=== PATIENT | male | born 1970 | race Caucasian/White ===

== ENCOUNTER 2024-01-25 17:22 | Inpatient (IN) | payer MEDICARE ==
[~2024-01-25 17:22] MED LIST: VANCOMYCIN 1,500 MG in SODIUM CHLORIDE 0.9% 500 ML 500 ML IVPB STA
[2024-01-25] MEDS ORDERED: NALOXONE 0.4 MG/ML 1 ML VIAL IV PRN (18:02)
--- NOTE | 2024-01-25 18:02 | ED ---
General Adult HPI - General Chief complaint: Abdominal Pain Stated complaint: Abd pain Time Seen by Provider: 01/25/24 17:24 Source: patient, family, RN/MD, EMS, RN notes reviewed, old records reviewed Mode of arrival: EMS Limitations: no limitations - History of Present Illness Initial comments: Is a 53-year-old male presenting to the emergency department as a transfer from [facility]. Patient has chronic back pain. Patient has abdominal pain that started today. Patient has decreased appetite and has vomited a little bit. Patient felt constipated this morning and since then has had around 4 small stools. Patient has discomfort mostly lower abdomen. Patient was seen in [facility] diagnosed with concern for diverticulitis with rupture. Patient was given Flagyl, Levaquin, and vancomycin. Magnesium and potassium were replaced. Patient was transferred for surgical care. - Related Data Home Medications Medication Instructions Recorded Confirmed ALPRAZolam [Xanax] 1 mg PO TID PRN 01/25/24 01/25/24 Acetaminophen [Tylenol Arthritis] 650 mg PO Q8H PRN 01/25/24 01/25/24 Benazepril HCl 40 mg PO HS 01/25/24 01/25/24 Cholecalciferol (Vitamin D3) 75 mcg PO HS 01/25/24 01/25/24 [Vitamin D3 (3000 Iu)] Meclizine HCl [Dramamine] 25 mg PO TID PRN 01/25/24 01/25/24 Melatonin 5 mg PO HS 01/25/24 01/25/24 PARoxetine HCL [Paxil] 40 mg PO HS 01/25/24 01/25/24 Pregabalin [Lyrica] 150 mg PO BID MDD 300mg 01/25/24 01/25/24 metFORMIN HCL 1,000 mg PO BID 01/25/24 01/25/24 methocarbamoL [Robaxin-750] 750 mg PO TID PRN 01/25/24 01/25/24 oxyCODONE HCL [oxyCODONE HCL (IR)] 15 mg PO Q6H PRN MDD 60mg 01/25/24 01/25/24 Allergies Allergy/AdvReac Type Severity Reaction Status Date / Time Penicillins Allergy Anaphylaxis Verified 01/25/24 18:03 Review of Systems ROS Statement: Those systems with pertinent positive or pertinent negative responses have been documented in the HPI. ROS Other: All systems not noted in ROS Statement are negative. Constitutional: Denies: fever Eyes: Denies: eye pain ENT: Denies: ear pain Respiratory: Denies: cough Cardiovascular: Denies: chest pain Endocrine: Denies: fatigue Gastrointestinal: Reports: as per HPI, abdominal pain Musculoskeletal: Reports: as per HPI Neurological: Denies: weakness Past Medical History Past Medical History: Diabetes Mellitus, Hypertension History of Any Multi-Drug Resistant Organisms: None Reported Past Surgical History: Back Surgery Additional Past Surgical History / Comment(s): Brain surgery, Past Psychological History: Anxiety, Bipolar, Depression Smoking Status: Former smoker Past Alcohol Use History: None Reported Past Drug Use History: None Reported General Exam Limitations: no limitations General appearance: alert, in no apparent distress Head exam: Present: normocephalic Eye exam: Present: normal appearance ENT exam: Present: normal oropharynx Neck exam: Present: normal inspection Respiratory exam: Present: normal lung sounds bilaterally Cardiovascular Exam: Present: regular rate, normal rhythm GI/Abdominal exam: Present: soft, tenderness (Moderate tenderness epigastric. Moderate tenderness lower abdomen), normal bowel sounds. Absent: distended, guarding, rebound, rigid, pulsatile mass Extremities exam: Present: normal inspection Neurological exam: Present: alert Psychiatric exam: Present: normal affect, normal mood Skin exam: Present: normal color Course Vital Signs 01/25/24 17:24 Temperature 99.0 F Pulse Rate 91 Respiratory 18 Rate Blood Pressure 124/84 O2 Sat by Pulse 96 Oximetry EKG Findings - EKG Results: EKG: interpreted by ERMD (PVCs present. Septal Q waves.), sinus rhythm, normal axis, normal ST/T Medical Decision Making - Medical Decision Making Was pt. sent in by a medical professional or institution (, PA, CORPORATE AIRCRAFT MECHANIC, urgent care, hospital, or retirement...) When possible be specific @ -Patient was sent from [facility]. Did you speak to anyone other than the patient for history (EMS, parent, family, police, friend...)? What history was obtained from this source @ -I did speak with transferring physician Dr. Lackey Did you review nursing and triage notes (agree or disagree)? Why? @ -I reviewed and agree with nursing and triage notes Were old charts reviewed (outside hosp., previous admission, EMS record, old EKG, old radiological studies, urgent care reports/EKG's, retirement records)? Report findings @ -Chart reviewed from [facility] Differential Diagnosis (chest pain, altered mental status, abdominal pain women, abdominal pain men, vaginal bleeding, weakness, fever, dyspnea, syncope, headache, dizziness, GI bleed, back pain, seizure, CVA, palpatations, mental health, musculoskeletal)? @ -Differential Abdominal Pain Men: Appendicitis, cholecystitis, diverticulosis, ischemic bowel, pancreatitis, hepatitis, UTI, gastroenteritis, AAA, incarcerated hernia, bowel obstruction, constipation, inflammatory bowel, hepatitis, peptic ulcer disease, splenic infarction, perforated viscus, testicular torsion, this is not meant to be an all-inclusive list EKG interpreted by me (3pts min.). @ -As above X-rays interpreted by me (1pt min.). @ -None done CT interpreted by me (1pt min.). @ -None done U/S interpreted by me (1pt. min.). @ -None done What testing was considered but not performed or refused? (CT, X-rays, U/S, labs)? Why? @ -Considered blood cultures however patient did have IV antibiotics prior to transfer What meds were considered but not given or refused? Why? @ -None Did you discuss the management of the patient with other professionals (professionals i.e. , PA, CORPORATE AIRCRAFT MECHANIC, lab, RT, psych nurse, social service agency director, swimming professor, teacher, chief green officer, caser in)? Give summary @ -Case was discussed with transferring physician. Case also discussed with Dr. Thomson who did come evaluate patient in the emergency department. Case also discussed with practitioner Liyah who will admit covering hospital call. Was smoking cessation discussed for >3mins.? @ -No Was critical care preformed (if so, how long)? @ -No Were there social determinants of health that impacted care today? How? (Homelessness, low income, unemployed, alcoholism, drug addiction, transportation, low edu. Level, literacy, decrease access to med. care, [place] [facility], rehab)? @ -No Was there de-escalation of care discussed even if they declined (Discuss DNR or withdrawal of care, Hospice)? DNR status @ -No What co-morbidities impacted this encounter? (DM, HTN, Smoking, COPD, CAD, Cancer, CVA, ARF, Chemo, Hep., AIDS, mental health diagnosis, sleep apnea, morbid obesity)? @ -None Was patient admitted / discharged? Hospital course, mention meds given and route, prescriptions, significant lab abnormalities, going to OR and other pertinent info. @ -Patient reevaluated. Patient and family are updated on results and plan. Patient will be admitted. Orders written. Undiagnosed new problem with uncertain prognosis? @ -No Drug Therapy requiring intensive monitoring for toxicity (Heparin, Nitro, Insulin, Cardizem)? @ -No Were any procedures done? @ -No Diagnosis/symptom? @ -Diverticulitis with perforation and abscess Acute, or Chronic, or Acute on Chronic? @ -Acute Uncomplicated (without systemic symptoms) or Complicated (systemic symptoms)? @ -Complicated with perforation and abscess Side effects of treatment? @ -No Exacerbation, Progression, or Severe Exacerbation? @ -No Poses a threat to life or bodily function? How? (Chest pain, [place], MT, pneumonia, PE, COPD, DKA, ARF, appy, cholecystitis, CVA, Diverticulitis, Homicidal, Suicidal, threat to staff... and all critical care pts) @ -Threat to life and organ dysfunction with infection in the abdomen Disposition Clinical Impression: Diverticulitis Disposition: ADMITTED IP TO THIS HOSP Is patient prescribed a controlled substance at d/c from ED?: No Referrals: None,Stated [REFERRING] - 1-2 days Time of Disposition: 18:02
[2024-01-25] MEDS ORDERED: MECLIZINE 25 MG TAB PO PRN (18:12)
[2024-01-25] MEDS: PANTOPRAZOLE 40 MG/10 ML VIAL IV SCH (18:15)
[2024-01-25] MEDS: HYDROmorphone 0.5 MG/0.5 ML SYRINGE IVP PRN (18:16)
[2024-01-25] MEDS: SODIUM CHLORIDE 0.9% 1,000 ML IV SCH (18:25)
[2024-01-25] MEDS: ACETAMINOPHEN TAB 325 MG TAB PO PRN (20:40)
[2024-01-25] MEDS: ALPRAZolam 1 MG TAB PO PRN (20:41)
[2024-01-25] MEDS: HYDROmorphone 1 MG/ML 1 ML SYRINGE IVP PRN (20:44)
[2024-01-25 20:51] LABS: Glucose,Whole Blood 155 mg/dL (70-110)
[2024-01-25] MEDS: CHOLECALCIFEROL 25 MCG (1000 IU) TABLET PO SCH (22:32)
[2024-01-25] MEDS: PREGABALIN 75 MG CAP PO SCH (22:32)
[2024-01-25] MEDS: lisinopriL 20 MG TAB PO SCH (22:32)
[2024-01-25] MEDS: PARoxetine 20 MG TAB PO SCH (22:33)
[2024-01-25] MEDS: MELATONIN 5 MG TABLET PO SCH (22:33)
[2024-01-26] MEDS ORDERED: VANCOMYCIN IV PER PHARMACY 1 EACH MISC MISCELLANE PRN (00:01)
[2024-01-26] MEDS: metroNIDAZOLE-NS PMX 500 MG in SALINE 1 100ML.BAG IVPB SCH (00:18)
--- NOTE | 2024-01-26 04:23 | P.GSCN ---
History of Present Illness Consult date: 01/25/24 History of present illness: CHIEF COMPLAINT: Abdominal pain HISTORY OF PRESENT ILLNESS: The patient is a 53-year-old male transferred from outside facility due to abdominal pain in the last 2 to 3 days. Patient reports eating moderate popcorn, peanuts, cucumber, tomatoes. Family confirms his diet. Patient primarily, planing of back pain as well. Outside diagnostic imaging demonstrated perforated diverticulitis with abscess. As result of his findings, patient was transferred for admission. Denies prior events. Last colonoscopy within 5 to 10 years. Patient unaware of having previous diverticulosis. Does report family member with colon cancer. Patient reports nausea and vomiting including generalized abdominal pain. His history significant for brain injury with brain bleed. Family give additional information of his global health. PAST MEDICAL HISTORY: See list and reviewed PAST SURGICAL HISTORY: See list and reviewed MEDICATIONS: See list and reviewed ALLERGIES: See list and reviewed SOCIAL HISTORY: See list and reviewed FAMILY HISTORY: See list and reviewed REVIEW OF ORGAN SYSTEMS: CONSTITUTIONAL: No fevers or chills. No recent weight loss. EYES: Denies any trouble with vision. No glasses. HEENT: No difficulties with hearing. No nosebleeds. No difficulty swallowing. RESPIRATORY: Denies pneumonia. Denies any troubles with breathing or dyspnea on exertion. CARDIOVASCULAR: Has hypertensive heart disease. GASTROINTESTINAL: Denies fatty food intolerance. Has change in bowel habits and gas bloat. GENITOURINARY: Denies any blood in urine or increased urinary frequency. NEUROLOGICAL: Has prior brain injury. MUSCULOSKELETAL: Has back pain, stiffness or joint arthritis. SKIN: No current skin cancer. No rash. PSYCHIATRIC: Has depression. Has generalized anxiety disorder. Has bipolar disorder. ENDOCRINE: Denies current thyroid disorders. Has diabetes type 2. HEME/LYMPHATIC: Denies any lumps and bumps around the neck. No recent deep venous thrombosis. ALLERGY/IMMUNOLOGY: No immunoglobulin therapy. No immune deficiencies. BREAST: Denies current breast lumps, pain or nipple discharge. PHYSICAL EXAM: VITALS: Reviewed CONSTITUTIONAL: Well developed and in no acute distress. EYES: Conjuctivae without sclera icterus. Extraocular movements grossly intact. HEAD, EARS, NOSE, THROAT: Moist buccal mucosa. Head is atraumatic, normocephalic. Hears conversational speech. No nasal drainage. NECK: Supple. No JV distention. No thyroidomegaly. RESPIRATORY: Non-labored respirations and equal bilateral excursions. No gross wheezes. CARDIOVASCULAR: Palpable 2+ radial pulses. ABDOMEN: Tender generalized. No diffuse peritonitis. LYMPH: No neck lymphadenopathy. MUSCULOSKELETAL: No clubbing cyanosis or edema SKIN: Warm and well perfused with good skin turgor. NEUROLOGIC: Cranial nerves II through XII grossly intact. No focal or lateralizing signs. PSYCH: Appropriate affect. Alert and oriented to person, place and time. Displays appropriate insight. CLINCAL LABS: Reviewed. WBC at outside institution over 12,000. RADIOLOGY: Report reviewed from outside facility demonstrates localized free air with 5 cm pelvic abscess. ASSESSMENT: 1. Perforated diverticulitis with localized abscess 2. History of brain injury PLAN: 1. Surgical options of exploratory laparotomy with colostomy creation reviewed. Alternatives including IV antibiotics with prolonged n.p.o. status including nothing at all were reviewed. Patient elected for antibiotic management for 72 hours with antibiotics and n.p.o. status. 2. Antibiotic management per infectious disease consulted 3. IV fluid hydration for prolonged n.p.o. status anticipated 4. PICC line placement for antibiotic management advised 5. Consultation to infectious disease for antibiotic management placed 6. TPN for prolonged n.p.o. status pending PICC line placement 7. Inpatient hospitalization over 3 days reviewed 8. Any clinical decline also reviewed where urgent surgical invention may be needed. 9. Nonnarcotic pain management with scheduled Tylenol and Toradol including Flexeril reviewed. 10. May have ice chips and popsicles in the interim. ADVANCE DIRECTIVE: CODE STATUS in chart Thank you for this kind consultation. Past Medical History Past Medical History: Diabetes Mellitus, Hypertension History of Any Multi-Drug Resistant Organisms: None Reported Past Surgical History: Back Surgery Additional Past Surgical History / Comment(s): Brain surgery, Past Anesthesia/Blood Transfusion Reactions: No Reported Reaction Past Psychological History: Anxiety, Bipolar, Depression Smoking Status: Never smoker Past Alcohol Use History: None Reported Past Drug Use History: None Reported Medications and Allergies Home Medications Medication Instructions Recorded Confirmed Type ALPRAZolam [Xanax] 1 mg PO TID PRN 01/25/24 01/25/24 History Acetaminophen [Tylenol Arthritis] 650 mg PO Q8H PRN 01/25/24 01/25/24 History Benazepril HCl 40 mg PO HS 01/25/24 01/25/24 History Cholecalciferol (Vitamin D3) 75 mcg PO HS 01/25/24 01/25/24 History [Vitamin D3 (3000 Iu)] Meclizine HCl [Dramamine] 25 mg PO TID PRN 01/25/24 01/25/24 History Melatonin 5 mg PO HS 01/25/24 01/25/24 History PARoxetine HCL [Paxil] 40 mg PO HS 01/25/24 01/25/24 History Pregabalin [Lyrica] 150 mg PO BID MDD 300mg 01/25/24 01/25/24 History metFORMIN HCL 1,000 mg PO BID 01/25/24 01/25/24 History methocarbamoL [Robaxin-750] 750 mg PO TID PRN 01/25/24 01/25/24 History oxyCODONE HCL [oxyCODONE HCL (IR)] 15 mg PO Q6H PRN MDD 60mg 01/25/24 01/25/24 History Allergies Allergy/AdvReac Type Severity Reaction Status Date / Time Penicillins Allergy Anaphylaxis Verified 01/25/24 18:03 Surgical - Exam Vital Signs Temp Pulse Resp BP Pulse Ox 99.0 F 91 18 124/84 96 01/25/24 17:24 01/25/24 17:24 01/25/24 17:24 01/25/24 17:24 01/25/24 17:24 Results - Labs Abnormal Lab Results - Last 24 Hours (Table) 01/25/24 Range/Units 20:47 POC Glucose (mg/dL) 155 H (70-110) mg/dL
[2024-01-26] MEDS: LEVOFLOXACIN 750MG-D5W PMX 750 MG in DEXTROSE/WATER 1 150ML.BAG IVPB SCH (05:03)
[2024-01-26] MEDS: ONDANSETRON 4 MG/2 ML VIAL IVP PRN (05:20)
[2024-01-26] MEDS: KETOROLAC 15 MG/ML 1 ML VIAL IVP SCH (05:23)
[2024-01-26] MEDS: ACETAMINOPHEN IV (For NPO) 1,000 MG in EMPTY BAG 1 BAG IVPB SCH (06:15)
[2024-01-26] MEDS: VANCOMYCIN 1,500 MG in SODIUM CHLORIDE 0.9% 500 ML 500 ML IVPB SCH (06:58)
[2024-01-26] MEDS ORDERED: hydrALAZINE HCL 20 MG/ML 1 ML VIAL IVP PRN (09:18)
[2024-01-26 09:25] LABS: Magnesium 1.6 mg/dL (1.5-2.4)
[2024-01-26 09:41] LABS: ALT 6 U/L (10-49); AST 16 U/L (14-35); Albumin 3.4 g/dL (3.8-4.9); Albumin/Globulin Ratio 1.42 Ratio (1.60-3.17); Alkaline Phosphatase 78 U/L (41-126); BUN/Creat Ratio 14.47 Ratio (12.00-20.00); Blood Urea Nitrogen 21.7 mg/dL (9.0-27.0); Calcium 10.2 mg/dL (8.7-10.3); Carbon Dioxide 20.6 mmol/L (21.6-31.8); Chloride 100 mmol/L (96-109); Globulin 2.4 g/dL (1.6-3.3); Glucose 90 mg/dL (70-110); Sodium 135 mmol/L (135-145); Total Bilirubin 0.6 mg/dL (0.3-1.2); Total Protein 5.8 g/dL (6.2-8.2)
[2024-01-26 09:56] LABS: Glucose,Whole Blood 78 mg/dL (70-110)
[2024-01-26 10:24] LABS: Basophils # (A) 0.02 X 10*3/uL (0.00-0.10); Basophils % (A) 0.2 %; Eosinophils # (A) 0 X 10*3/uL (0.04-0.35); Eosinophils % (A) 0 %; HCT 44.2 % (39.6-50.0); Lymphocytes # (A) 0.86 X 10*3/uL (0.90-5.00); Lymphocytes % (A) 10.2 %; MCH 30.8 pg (27.0-32.0); MCHC 33.9 g/dL (32.0-37.0); MCV 90.8 FL (80.0-97.0); Mean Platelet Volume 11.7 FL (9.5-12.2); Monocytes % (A) 5.9 %; NRBC Per 100 WBC 0 X 10*3/uL (0.00-0.01); Neutrophils # (A) 7.01 X 10*3/uL (1.80-7.70); Neutrophils % (A) 83.2 %; Platelet Count 255 X 10*3/uL (140-440); RBC 4.87 X 10*6/uL (4.40-5.60); RBC Morphology Normal (Normal); RDW 13.5 % (11.5-14.5); WBC 8.43 X 10*3/uL (4.50-10.00)
--- NOTE | 2024-01-26 11:07 | P.PN ---
Subjective Progress Note Date: 01/26/24 PETE. Patient states that his abdominal pain is improved slightly. No F/C. No SOB or CP. No headache or blurry vision. No flatus or BM since admission. Voiding without issue. Objective - Vital Signs Vital signs: Vital Signs Temp 97.9 F 01/26/24 07:20 Pulse 81 01/26/24 07:20 Resp 16 01/26/24 07:20 BP 92/61 01/26/24 07:20 Pulse Ox 93 L 01/26/24 07:20 FiO2 Intake & Output 01/25/24 01/26/24 01/26/24 18:59 06:59 18:59 Intake Total 0 Output Total 400 Balance -400 Weight 90.718 kg 90.718 kg Intake: Oral 0 Output: Urine 400 Other: Voiding Method Toilet Urinal - Exam Gen: AxO, NAD Pulm: non-labored respiration Abd: soft, moderately-tender in LLQ, moderately-distended. No guarding/rebound/rigidity Extrem: no edema seen - Labs CBC & Chem 7: 01/26/24 04:34 01/26/24 04:34 Labs: Abnormal Lab Results - Last 24 Hours (Table) 01/25/24 01/26/24 01/26/24 Range/Units 20:47 04:34 04:34 Lymphocytes # 0.86 L (0.90-5.00) X 10*3/uL Eosinophils # 0 L (0.04-0.35) X 10*3/uL Carbon Dioxide 20.6 L (21.6-31.8) mmol/L Anion Gap 14.40 H (4.00-12.00) mmol/L Est GFR (CKD-EPI) 55 L (>=60) POC Glucose (mg/dL) 155 H (70-110) mg/dL ALT 6 L (10-49) U/L Total Protein 5.8 L (6.2-8.2) g/dL Albumin 3.4 L (3.8-4.9) g/dL Albumin/Globulin Ratio 1.42 L (1.60-3.17) Ratio Assessment and Plan Assessment: Patient is a 53M who presents with cross sectional imaging findings concerning for perforated sigmoid diverticulitis currently managed conservatively Plan: -NPO -TPN -IVF hydration -IV abx: ID consult -PRN pain and nausea control -Serial abdominal examination -No acute surgical intervention; will continue to attempt conservative management; if worsening abdominal pain or development of peritonitis, hemodynamic instability will plan for emergent intervention. Discussed in detail with patient at bedside. Alonzo Morgan MD General Surgery
[2024-01-26 12:03] LABS: Glucose,Whole Blood 71 mg/dL (70-110)
[2024-01-26] MEDS: INSULIN ASPART (NovoLOG) 100 UNIT/ML VIAL SQ SCH (12:09)
[2024-01-26 13:33] LABS: INR 1.23 sec (0.93-1.11); Prothrombin Time 13.1 sec (9.9-11.9)
--- NOTE | 2024-01-26 13:54 | P.HPIM ---
History of Present Illness H&P Date: 01/26/24 Chief Complaint: Abdominal pain * 53-year-old gentleman past medical history significant for chronic back pain, history of hypertension, history of diabetes mellitus presented to the emergency department with complaints of acute onset of abdominal pain on top of chronic back pain. Patient states symptom onset was 24 hours prior to presentation. Patient said he has a progressive decrease in appetite and had vomited a few times before coming in. Patient said he had 4 small stools however abdominal pain persisted. Patient was sent as a transfer from an outside hospital due to concern for diverticulitis with perforation. * General surgery team was contacted, patient was made n.p.o. * consultation obtained from general surgery and infectious disease REVIEW OF SYSTEMS: Abdominal pain CONSTITUTIONAL: No fever, no malaise, no fatigue. HEENT: No recent visual problems or hearing problems. Denied any sore throat. CARDIOVASCULAR: No chest pain, orthopnea, PND, no palpitations, no syncope. PULMONARY: No shortness of breath, no cough, no hemoptysis. GASTROINTESTINAL: No diarrhea, no nausea, no vomiting, no abdominal pain. NEUROLOGICAL: No headaches, no weakness, no numbness. HEMATOLOGICAL: Denies any bleeding or petechiae. GENITOURINARY: Denies any burning micturition, frequency, or urgency. MUSCULOSKELETAL/RHEUMATOLOGICAL: Denies any joint pain, swelling, or any muscle pain. ENDOCRINE: Denies any polyuria or polydipsia. PHYSICAL EXAMINATION: GENERAL: The patient is alert and oriented x3, not in any acute distress. Well d eveloped, well nourished. HEENT: Pupils are round and equally reacting to light. EOMI. Normocephalic, atraumatic. CARDIOVASCULAR: S1 and S2 present. No murmurs, rubs, or gallops. PULMONARY: Chest is clear to auscultation, no wheezing or crackles. ABDOMEN: Soft, distended, no guarding or rigidity MUSCULOSKELETAL: No joint swelling or deformity. EXTREMITIES: No cyanosis, clubbing, or pedal edema. NEUROLOGICAL: Gross neurological examination did not reveal any focal deficits. Assessment and plan * Acute diverticulitis with perforation and localized abscess * Diabetes mellitus type 2 * History of hypertension * chronic pain syndrome * Continue patient on IV antibiotics on Levaquin and Flagyl, general surgeon infectious is consulted patient remains n.p.o., patient was offered surgical intervention however at this time patient would want to be managed conservatively * In regards to diabetes mellitus since patient is n.p.o. Accu-Cheks every 4 hours continue patient on correctional insulin monitor for hypoglycemia * History of hypertension as needed IV hydralazine ordered * Regards to chronic pain syndrome as needed IV Dilaudid ordered, continue Robaxin, continue Lyrica * Code status full code Past Medical History Past Medical History: Diabetes Mellitus, Hypertension History of Any Multi-Drug Resistant Organisms: None Reported Past Surgical History: Back Surgery Additional Past Surgical History / Comment(s): Brain surgery, Past Anesthesia/Blood Transfusion Reactions: No Reported Reaction Past Psychological History: Anxiety, Bipolar, Depression Smoking Status: Never smoker Past Alcohol Use History: None Reported Past Drug Use History: None Reported Medications and Allergies Home Medications Medication Instructions Recorded Confirmed Type ALPRAZolam [Xanax] 1 mg PO TID PRN 01/25/24 01/25/24 History Acetaminophen [Tylenol Arthritis] 650 mg PO Q8H PRN 01/25/24 01/25/24 History Benazepril HCl 40 mg PO HS 01/25/24 01/25/24 History Cholecalciferol (Vitamin D3) 75 mcg PO HS 01/25/24 01/25/24 History [Vitamin D3 (3000 Iu)] Meclizine HCl [Dramamine] 25 mg PO TID PRN 01/25/24 01/25/24 History Melatonin 5 mg PO HS 01/25/24 01/25/24 History PARoxetine HCL [Paxil] 40 mg PO HS 01/25/24 01/25/24 History Pregabalin [Lyrica] 150 mg PO BID MDD 300mg 01/25/24 01/25/24 History metFORMIN HCL 1,000 mg PO BID 01/25/24 01/25/24 History methocarbamoL [Robaxin-750] 750 mg PO TID PRN 01/25/24 01/25/24 History oxyCODONE HCL [oxyCODONE HCL (IR)] 15 mg PO Q6H PRN MDD 60mg 01/25/24 01/25/24 History Allergies Allergy/AdvReac Type Severity Reaction Status Date / Time Penicillins Allergy Anaphylaxis Verified 01/25/24 18:03 Physical Exam Vitals: Vital Signs Temp Pulse Pulse Resp BP BP BP 01/26/24 07:20 97.9 F 81 16 94/62 92/61 01/26/24 03:46 98.8 F 73 18 104/72 01/26/24 00:29 99.4 F 107 H 20 105/76 01/25/24 20:32 100.4 F H 104 H 20 139/92 01/25/24 20:00 20 01/25/24 19:54 95 20 113/81 01/25/24 18:50 97 18 120/65 01/25/24 17:24 99.0 F 91 18 124/84 Pulse Ox 01/26/24 07:20 93 L 01/26/24 03:46 94 L 01/26/24 00:29 94 L 01/25/24 20:32 94 L 01/25/24 20:00 01/25/24 19:54 96 01/25/24 18:50 93 L 01/25/24 17:24 96 Intake and Output 01/25/24 01/26/24 01/26/24 22:59 06:59 14:59 Intake Total 0 Output Total 400 Balance -400 Intake: Oral 0 Output: Urine 400 Other: Voiding Method Toilet Urinal Weight 90.718 kg Results CBC & Chem 7: 01/26/24 04:34 01/26/24 04:34 Labs: Abnormal Lab Results - Last 24 Hours (Table) 01/25/24 Range/Units 20:47 POC Glucose (mg/dL) 155 H (70-110) mg/dL Thrombosis Risk Factor Assmnt - Choose All That Apply Any of the Below Risk Factors Present?: Yes Each Factor Represents 1 point: Age 41-60 years, Medical pt on bed rest, Obesity (BMI >25) Other Risk Factors: Yes Each Risk Factor Represents 2 Points: Laparoscopic surgery Thrombosis Risk Factor Assessment Total Risk Factor Score: 5 Thrombosis Risk Factor Assessment Level: High Risk
[2024-01-26] MEDS: methocarbamoL 750 MG TAB PO PRN (14:08)
[2024-01-26 16:01] LABS: Glucose,Whole Blood 69 mg/dL (70-110)
[2024-01-26 21:44] LABS: Glucose,Whole Blood 76 mg/dL (70-110)
--- NOTE | 2024-01-26 22:43 | P.CONS ---
History of Present Illness - Reason for Consult Consult date: 01/26/24 - History of Present Illness Patient is a 53-year-old male with past medical history significant for diabetes mellitus hypertension anxiety bipolar depression and brain surgery patient initially presented to [facility] for abdominal pain that started getting worse the day of presentation to the hospital patient was describing the pain to be sharp moderate to severe intensity without any radiation patient did have decreased appetite and vomiting and has constipation patient did have a CT abdominal pelvis at [facility] and the patient has been diagnosed with a ruptured diverticulitis, he received Flagyl Levaquin and vancomycin because of his penicillin allergy and subsequently transferred to [facility] for further evaluation, patient on presentation to the hospital did have low-grade fever 100.4 F patient was tachycardic but not hypotensive or hypoxic did have a white count of 8.43 creatinine is 1.5 liver enzymes are normal, patient still complaining of abdominal pain manage is slightly decreased in intensity nausea but no further vomiting and did not have a bowel movement Past Medical History Past Medical History: Diabetes Mellitus, Hypertension History of Any Multi-Drug Resistant Organisms: None Reported Past Surgical History: Back Surgery Additional Past Surgical History / Comment(s): Brain surgery, Past Anesthesia/Blood Transfusion Reactions: No Reported Reaction Past Psychological History: Anxiety, Bipolar, Depression Smoking Status: Never smoker Past Alcohol Use History: None Reported Past Drug Use History: None Reported Medications and Allergies Home Medications Medication Instructions Recorded Confirmed Type ALPRAZolam [Xanax] 1 mg PO TID PRN 01/25/24 01/25/24 History Acetaminophen [Tylenol Arthritis] 650 mg PO Q8H PRN 01/25/24 01/25/24 History Benazepril HCl 40 mg PO HS 01/25/24 01/25/24 History Cholecalciferol (Vitamin D3) 75 mcg PO HS 01/25/24 01/25/24 History [Vitamin D3 (3000 Iu)] Meclizine HCl [Dramamine] 25 mg PO TID PRN 01/25/24 01/25/24 History Melatonin 5 mg PO HS 01/25/24 01/25/24 History PARoxetine HCL [Paxil] 40 mg PO HS 01/25/24 01/25/24 History Pregabalin [Lyrica] 150 mg PO BID MDD 300mg 01/25/24 01/25/24 History metFORMIN HCL 1,000 mg PO BID 01/25/24 01/25/24 History methocarbamoL [Robaxin-750] 750 mg PO TID PRN 01/25/24 01/25/24 History oxyCODONE HCL [oxyCODONE HCL (IR)] 15 mg PO Q6H PRN MDD 60mg 01/25/24 01/25/24 History Allergies Allergy/AdvReac Type Severity Reaction Status Date / Time Penicillins Allergy Anaphylaxis Verified 01/25/24 18:03 Physical Exam Vitals: Vital Signs Temp Pulse Pulse Resp BP BP BP 01/26/24 07:20 97.9 F 81 16 94/62 92/61 01/26/24 03:46 98.8 F 73 18 104/72 01/26/24 00:29 99.4 F 107 H 20 105/76 01/25/24 20:32 100.4 F H 104 H 20 139/92 01/25/24 20:00 20 01/25/24 19:54 95 20 113/81 01/25/24 18:50 97 18 120/65 01/25/24 17:24 99.0 F 91 18 124/84 Pulse Ox 01/26/24 07:20 93 L 01/26/24 03:46 94 L 01/26/24 00:29 94 L 01/25/24 20:32 94 L 01/25/24 20:00 01/25/24 19:54 96 01/25/24 18:50 93 L 01/25/24 17:24 96 Intake and Output 01/25/24 01/26/24 01/26/24 22:59 06:59 14:59 Intake Total 0 Output Total 400 Balance -400 Intake: Oral 0 Output: Urine 400 Other: Voiding Method Toilet Urinal Weight 90.718 kg Results CBC & Chem 7: 01/28/24 06:32 01/28/24 06:32 Labs: Abnormal Lab Results - Last 24 Hours (Table) 01/25/24 01/26/24 Range/Units 20:47 04:34 Carbon Dioxide 20.6 L (21.6-31.8) mmol/L Anion Gap 14.40 H (4.00-12.00) mmol/L Est GFR (CKD-EPI) 55 L (>=60) POC Glucose (mg/dL) 155 H (70-110) mg/dL ALT 6 L (10-49) U/L Total Protein 5.8 L (6.2-8.2) g/dL Albumin 3.4 L (3.8-4.9) g/dL Albumin/Globulin Ratio 1.42 L (1.60-3.17) Ratio Assessment and Plan Plan: 1patient presented hospital with sepsis in this patient did have fever tachycardia source is acute ruptured appendicitis and peritonitis and will need to cover for enteric gram-negative to be the likely pathogen less likely gram- positive kike 2-penicillin allergy that will limit the number of antibiotics safe to use 3-discontinue vancomycin and Levaquin continue with the Flagyl 4-we will add cefepime 2 g every 8 hours to cover for the gram-negative Bowel rest and plan for repeat CT per surgery We will follow on clinical condition and cultures to further adjust medication if needed Thank you for this consultation we will follow the patient along with you Dictation was produced using [email or web address] dictation software. please excuse any grammatical, word or spelling errors. Time with Patient: Greater than 30
[2024-01-26 23:47] LABS: Glucose,Whole Blood 77 mg/dL (70-110)
[2024-01-27] MEDS: CEFEPIME 2 GM in SODIUM CHLORIDE 0.9% 100 ML IVPB SCH ×2 (00:33→15:17)
[2024-01-27 03:52] LABS: Glucose,Whole Blood 69 mg/dL (70-110)
[2024-01-27 04:17] LABS: Glucose,Whole Blood 66 mg/dL (70-110)
[2024-01-27 04:23] LABS: Glucose,Whole Blood 61 mg/dL (70-110)
[2024-01-27] MEDS: DEXTROSE 50% SYRINGE 50 ML IVP PRN ×2 (04:31→07:47)
[2024-01-27 04:56] LABS: Glucose,Whole Blood 110 mg/dL (70-110)
[2024-01-27 07:24] LABS: Glucose,Whole Blood 62 mg/dL (70-110)
[2024-01-27 07:26] LABS: African American GFR (CKD) 33 (>60 ml/min/1.73 sqM); Anion Gap 9 mmol/L; Blood Urea Nitrogen 44 mg/dL (9-20); Calcium 8.6 mg/dL (8.4-10.2); Carbon Dioxide 19 mmol/L (22-30); Chloride 104 mmol/L (98-107); Non-African American GFR(CKD) 29 (>60 ml/min/1.73 sqM); Potassium 4.8 mmol/L (3.5-5.1); Sodium 132 mmol/L (137-145)
[2024-01-27 07:29] LABS: Glucose 49 mg/dL (74-99)
[2024-01-27 07:41] LABS: Magnesium 1.5 mg/dL (1.6-2.3)
[2024-01-27 08:01] LABS: Glucose,Whole Blood 133 mg/dL (70-110)
[2024-01-27 10:35] LABS: HCT 35.9 % (39.0-53.0); HGB 11.6 gm/dL (13.0-17.5); MCH 31.4 pg (25.0-35.0); MCHC 32.2 g/dL (31.0-37.0); MCV 97.6 fL (80.0-100.0); Mean Platelet Volume 10.8; Platelet Count 136 k/uL (150-450); RBC 3.68 m/uL (4.30-5.90); RDW 13.7 % (11.5-15.5); WBC 3.3 k/uL (3.8-10.6)
[2024-01-27 11:27] LABS: Band Neutrophils % 14 %; Myelocytes % 3 %; Neutrophils % (M) 62 %; Nucleated Red Blood Cells 0 /100 WBC (0-0); Total Cells Counted 100
--- NOTE | 2024-01-27 11:39 | P.PN ---
Subjective Progress Note Date: 01/27/24 Patient had reported that he felt better but still has lower abdominal discomfort. "My back hurts and I am supposed to have surgery February 03." No fevers in 24 hrs. " I want to avoid the narcotics." His family is at bedside. ABDOMEN: No diffuse peritonitis. Tender left lower quadrant. PLAN: 1. Repeat CT scan 2. Continue NPO 3. Scheduled non-narcotic management. 4. PICC line needed. 5. Antibiotic management with infectious disease. Objective - Vital Signs Vital signs: Vital Signs Temp 97.7 F 01/27/24 07:20 Pulse 57 L 01/27/24 08:00 Resp 16 01/27/24 08:00 BP 84/52 01/27/24 07:20 Pulse Ox 96 01/27/24 07:20 FiO2 Intake & Output 01/26/24 01/27/24 01/27/24 18:59 06:59 18:59 Intake Total 2830 Output Total 1440 Balance 2830 -1440 Weight 90.718 kg Intake: Intake, IV Titration 2830 Amount ACETAMINOPHEN IV (For NPO 800 ) 1,000 mg In Empty Bag 1 bag @ 400 mls/hr IVPB Q6HR [facility] Rx#:[id number] Sodium Chloride 0.9% 1, 1430 000 ml @ 130 mls/hr IV . Q7H42M [facility] Rx#:[id number] Vancomycin 1,500 mg In 500 Sodium Chloride 0.9% 500 ml 500 ml @ 167 mls/hr IVPB Q12H [facility] Rx#: [id number] metroNIDAZOLE-NS PMX 500 100 mg In Saline 1 100ml.bag @ 100 mls/hr IVPB Q6HR [facility] Rx#:[id number] Output: Urine 1440 Other: Voiding Method Toilet Toilet Urinal Urinal - Labs CBC & Chem 7: 01/27/24 10:30 01/27/24 06:23 Labs: Abnormal Lab Results - Last 24 Hours (Table) 01/26/24 01/26/24 01/27/24 Range/Units 04:34 16:01 03:50 WBC (3.8-10.6) k/uL RBC (4.30-5.90) m/uL Hgb (13.0-17.5) gm/dL Hct (39.0-53.0) % Plt Count (150-450) k/uL Lymphocytes # (Manual) (1.0-4.8) k/uL Myelocytes # (Manual) (0) k/uL PT 13.1 H (9.9-11.9) sec INR 1.23 H (0.93-1.11) sec Sodium (137-145) mmol/L Carbon Dioxide (22-30) mmol/L BUN (9-20) mg/dL Creatinine (0.66-1.25) mg/dL Glucose (74-99) mg/dL POC Glucose (mg/dL) 69 L 69 L (70-110) mg/dL Hemoglobin A1c (<=6.0) % Plasma Lactic Acid Collin (0.7-2.0) mmol/L Magnesium (1.6-2.3) mg/dL 01/27/24 01/27/24 01/27/24 Range/Units 04:16 04:22 06:23 WBC (3.8-10.6) k/uL RBC (4.30-5.90) m/uL Hgb (13.0-17.5) gm/dL Hct (39.0-53.0) % Plt Count (150-450) k/uL Lymphocytes # (Manual) (1.0-4.8) k/uL Myelocytes # (Manual) (0) k/uL PT (9.9-11.9) sec INR (0.93-1.11) sec Sodium (137-145) mmol/L Carbon Dioxide (22-30) mmol/L BUN (9-20) mg/dL Creatinine (0.66-1.25) mg/dL Glucose (74-99) mg/dL POC Glucose (mg/dL) 66 L 61 L (70-110) mg/dL Hemoglobin A1c 6.1 H (<=6.0) % Plasma Lactic Acid Collin (0.7-2.0) mmol/L Magnesium (1.6-2.3) mg/dL 01/27/24 01/27/24 01/27/24 Range/Units 06:23 07:22 07:59 WBC (3.8-10.6) k/uL RBC (4.30-5.90) m/uL Hgb (13.0-17.5) gm/dL Hct (39.0-53.0) % Plt Count (150-450) k/uL Lymphocytes # (Manual) (1.0-4.8) k/uL Myelocytes # (Manual) (0) k/uL PT (9.9-11.9) sec INR (0.93-1.11) sec Sodium 132 L (137-145) mmol/L Carbon Dioxide 19 L (22-30) mmol/L BUN 44 H (9-20) mg/dL Creatinine 2.46 H (0.66-1.25) mg/dL Glucose 49 L* (74-99) mg/dL POC Glucose (mg/dL) 62 L 133 H (70-110) mg/dL Hemoglobin A1c (<=6.0) % Plasma Lactic Acid Collin (0.7-2.0) mmol/L Magnesium 1.5 L (1.6-2.3) mg/dL 01/27/24 01/27/24 Range/Units 10:30 10:43 WBC 3.3 L (3.8-10.6) k/uL RBC 3.68 L (4.30-5.90) m/uL Hgb 11.6 L (13.0-17.5) gm/dL Hct 35.9 L (39.0-53.0) % Plt Count 136 L (150-450) k/uL Lymphocytes # (Manual) 0.50 L (1.0-4.8) k/uL Myelocytes # (Manual) 0.10 H (0) k/uL PT (9.9-11.9) sec INR (0.93-1.11) sec Sodium (137-145) mmol/L Carbon Dioxide (22-30) mmol/L BUN (9-20) mg/dL Creatinine (0.66-1.25) mg/dL Glucose (74-99) mg/dL POC Glucose (mg/dL) (70-110) mg/dL Hemoglobin A1c (<=6.0) % Plasma Lactic Acid Collin 2.9 H* (0.7-2.0) mmol/L Magnesium (1.6-2.3) mg/dL
--- NOTE | 2024-01-27 11:40 | P.PN ---
Progress Note - Text Progress Note Date: 01/27/24 Notified by RN that patient lied regarding his abdominal pain to avoid surgery per discussion with his family. Will obtain repeat CT scan today. Possible colectomy with ostomy creation previously described.
[2024-01-27 11:56] LABS: Glucose,Whole Blood 55 mg/dL (70-110)
[2024-01-27] MEDS: SODIUM CHLORIDE 0.9% 2,000 ML IV ONE ×3 (12:25→16:15)
[2024-01-27 12:33] LABS: Glucose,Whole Blood 58 mg/dL (70-110)
[2024-01-27] MEDS: IOPAMIDOL CONTRAST (ORAL USE) VIAL PO PRN (12:33)
[2024-01-27] MEDS: MAGNESIUM SULFATE-D5W PMX 1 GM in DEXTROSE/WATER 1 100ML.BAG IVPB SCH (12:41)
[2024-01-27 12:50] LABS: Glucose,Whole Blood 95 mg/dL (70-110)
[2024-01-27 12:58] LABS: INR 1.1 (<1.2); Partial Thromboplastin Time 32.9 sec (22.0-30.0); Prothrombin Time 11.8 sec (10.0-12.5)
--- NOTE | 2024-01-27 13:13 | P.PN ---
Subjective Progress Note Date: 01/27/24 * 53-year-old gentleman past medical history significant for chronic back pain, history of hypertension, history of diabetes mellitus presented to the emergency department with complaints of acute onset of abdominal pain on top of chronic back pain. Patient states symptom onset was 24 hours prior to presentation. Patient said he has a progressive decrease in appetite and had vomited a few times before coming in. Patient said he had 4 small stools however abdominal pain persisted. Patient was sent as a transfer from an outside hospital due to concern for diverticulitis with perforation. * General surgery team was contacted, patient was made n.p.o. * consultation obtained from general surgery and infectious disease * 01/27/24: Patient seen and evaluated at bedside, serum chemistry reviewed, creatinine elevated at 2.46, to be hypotensive, patient dose of lisinopril discontinued, follow-up lactate levels ordered, since lactate levels was elevated, patient given fluid bolus, patient to be transferred to [facility] will follow-up on vitals and blood pressure patient decompensates he will need to go to medical ICU, nursing staff instructed to call a team if patient becomes symptomatic. Patient did complain of abdominal discomfort, surgery team following and aware they had requested a CT abdomen pelvis that will be completed as well>> patient reluctant to get surgery done, patient states she does not trust doctors. Patient daughter at bedside as well care plan explained. Patient and other family members accompanied him in the room as well patient was explained if he decompensates he would need surgery, apparently per chart review patient has only not been forefront with the nursing staff regarding abdominal pain PHYSICAL EXAMINATION: GENERAL: The patient is alert and oriented x3, ill appearance HEENT: Pupils are round and equally reacting to light. EOMI. Normocephalic, atraumatic. CARDIOVASCULAR: S1 and S2 present. No murmurs, rubs, or gallops. PULMONARY: Chest is clear to auscultation, no wheezing or crackles. ABDOMEN: Soft, distended, no guarding or rigidity MUSCULOSKELETAL: No joint swelling or deformity. EXTREMITIES: No cyanosis, clubbing, or pedal edema. NEUROLOGICAL: Gross neurological examination did not reveal any focal deficits. Assessment and plan * Acute diverticulitis with perforation and localized abscess * Sepsis secondary to intra-abdominal infection * Diabetes mellitus type 2 * History of hypertension * chronic pain syndrome * Continue patient on IV antibiotics on cefepime and Flagyl, general surgeon infectious is consulted patient remains n.p.o., patient was offered surgical intervention however at this time patient would want to be managed conservatively * In regards to diabetes mellitus since patient is n.p.o. Accu-Cheks every 4 hours continue patient on correctional insulin monitor for hypoglycemia * History of hypertension >> patient noted to be hypotensive, lisinopril discontinued, given fluid, follow-up lactate ordered, initial lactate 2 point 9 repeat lactate after fluid bolus * Regards to chronic pain syndrome as needed IV Dilaudid ordered, continue Robaxin, continue Lyrica * Code status full code Objective - Vital Signs Vital signs: Vital Signs Temp 97.7 F 01/27/24 07:20 Pulse 57 L 01/27/24 08:00 Resp 16 01/27/24 08:00 BP 84/52 01/27/24 07:20 Pulse Ox 96 01/27/24 07:20 FiO2 Intake & Output 01/26/24 01/27/24 01/27/24 18:59 06:59 18:59 Intake Total 2830 Output Total 1440 Balance 2830 -1440 Weight 90.718 kg Intake: Intake, IV Titration 2830 Amount ACETAMINOPHEN IV (For NPO 800 ) 1,000 mg In Empty Bag 1 bag @ 400 mls/hr IVPB Q6HR [facility] Rx#:[id number] Sodium Chloride 0.9% 1, 1430 000 ml @ 130 mls/hr IV . Q7H42M [facility] Rx#:[id number] Vancomycin 1,500 mg In 500 Sodium Chloride 0.9% 500 ml 500 ml @ 167 mls/hr IVPB Q12H [facility] Rx#: [id number] metroNIDAZOLE-NS PMX 500 100 mg In Saline 1 100ml.bag @ 100 mls/hr IVPB Q6HR [facility] Rx#:[id number] Output: Urine 1440 Other: Voiding Method Toilet Toilet Urinal Urinal - Labs CBC & Chem 7: 01/27/24 10:30 01/27/24 06:23 Labs: Abnormal Lab Results - Last 24 Hours (Table) 01/26/24 01/26/24 01/27/24 Range/Units 04:34 16:01 03:50 PT 13.1 H (9.9-11.9) sec INR 1.23 H (0.93-1.11) sec Sodium (137-145) mmol/L Carbon Dioxide (22-30) mmol/L BUN (9-20) mg/dL Creatinine (0.66-1.25) mg/dL Glucose (74-99) mg/dL POC Glucose (mg/dL) 69 L 69 L (70-110) mg/dL Hemoglobin A1c (<=6.0) % Magnesium (1.6-2.3) mg/dL 01/27/24 01/27/24 01/27/24 Range/Units 04:16 04:22 06:23 PT (9.9-11.9) sec INR (0.93-1.11) sec Sodium (137-145) mmol/L Carbon Dioxide (22-30) mmol/L BUN (9-20) mg/dL Creatinine (0.66-1.25) mg/dL Glucose (74-99) mg/dL POC Glucose (mg/dL) 66 L 61 L (70-110) mg/dL Hemoglobin A1c 6.1 H (<=6.0) % Magnesium (1.6-2.3) mg/dL 01/27/24 01/27/24 01/27/24 Range/Units 06:23 07:22 07:59 PT (9.9-11.9) sec INR (0.93-1.11) sec Sodium 132 L (137-145) mmol/L Carbon Dioxide 19 L (22-30) mmol/L BUN 44 H (9-20) mg/dL Creatinine 2.46 H (0.66-1.25) mg/dL Glucose 49 L* (74-99) mg/dL POC Glucose (mg/dL) 62 L 133 H (70-110) mg/dL Hemoglobin A1c (<=6.0) % Magnesium 1.5 L (1.6-2.3) mg/dL
[2024-01-27] MEDS: ACETAMINOPHEN TAB 500 MG TAB PO SCH (15:07)
[2024-01-27 15:46] LABS: Glucose,Whole Blood 84 mg/dL (70-110)
--- NOTE | 2024-01-27 17:11 | P.PN ---
Progress Note - Text Progress Note Date: 01/27/[address] scan and earlier event. Patient becoming hypotensive. Urine out put is an accurate as patient's has been discarding his urine. Studies: CT of the abdomen pelvis independently reviewed demonstrates no free air. Intra-abdominal ascites identified. Inflammation of the sigmoid colon identified. Labs: Lactate elevated 2.9 consistent with lactic acidosis. Assessment: 1. Sepsis with leukopenia Plan: 1. Continue IV antibiotics. 2. I ordered sepsis protocol including 4 L normal saline boluses. 3. I ordered echo cardiogram of the heart for potential surgical intervention. 4. Continue n.p.o. status with exception of ice chips and popsicles 5. Michel catheter for accurate inputs and outputs due to new sepsis 6. TPN and PICC line placement pending 7. Patient reports moderate back pain with previous history of spinal fracture. Consultation to orthopedic spine provider performed.
--- NOTE | 2024-01-27 19:33 | CT ---
EXAMINATION TYPE: CT abdomen pelvis wo con CT DLP: 1160.9 mGycm, Automated exposure control for dose reduction was used. DATE OF EXAM: 01/27/2024 2:32 PM COMPARISON: None. CLINICAL INDICATION:Male, 53 years old with history of lower abdominal pain, known diverticulitis; lo wer abdominal pain, known diverticulitis TECHNIQUE: Axial CT of the abdomen and pelvis. Sagittal and coronal reformats were created on a [employer] workstation. Contrast used: mL of , (none if empty) Oral contrast used: with Oral Contrast (none if empty) FINDINGS: Exam is limited without contrast. LOWER CHEST: Small right pleural effusion. Calcified pleural plaque on the right, can be seen with pr ior asbestos exposure. There are bibasilar lung opacities that could represent atelectasis and/or inf iltrates. Heart is mildly enlarged. There are very heavy coronary arterial calcifications seen, espec ially on the left. ABDOMEN LIVER: Possible early cirrhotic morphology, otherwise unremarkable. GALLBLADDER AND BILE DUCTS: Gallbladder appears distended without calcified gallstones seen. PANCREAS: Unremarkable. SPLEEN: Unremarkable. ADRENAL GLANDS: Mildly thickened, may be seen with hyperplasia.. KIDNEYS AND URETERS: Kidneys show small calcifications in the hilar regions which could be vascular. There is no evidence of hydronephrosis or ureteral stone. PELVIS BLADDER: Grossly unremarkable. REPRODUCTIVE: Nonenlarged prostate with a few coarse calcifications. ABDOMEN & PELVIS STOMACH AND BOWEL: Contrast traverses the stomach and small bowel loops without evidence of obstructi on. Contrast has not yet reached the distal small bowel. The appendix is not visualized. Moderate flu id distention of the cecum and right colon is suggested. There is more formed stool further distally. Multiple colonic diverticula are seen, with some surrounding inflammation suggesting most likely div erticulitis. PERITONEUM/RETROPERITONEUM: There is a small to moderate volume of ascites in the abdomen and pelvi s. There appears to be a small amount of layering hyperdensity along the posterior aspect of the pelv ic fluid, which may be from leakage of small amount contrast. There are multiple small foci of extral uminal gas consistent with pneumoperitoneum, which has increased slightly since 01/25/2024 in size and number. VASCULATURE: Moderate to severe atherosclerotic calcifications are present throughout the abdominal a bernice and its branches. No evidence of aortic aneurysm. LYMPH NODES: No enlarged nodes by CT size criteria. SOFT TISSUE/ABDOMINAL WALL: Unremarkable MUSCULOSKELETAL: Generalized osteopenia. Extensive multilevel posterior fusion hardware throughout th e visualized spine with multilevel accompanying laminectomies. Moderate to severe loss of L2 vertebra l body height is similar to before. Developmental fusion of T9-T10 vertebral bodies again noted. No a cute osseous abnormality is seen. IMPRESSION: 1. Colonic findings suggestive of diverticulitis, with multiple small foci of extraluminal free intr aperitoneal air likely result of perforated diverticulitis. 2. Small amount of fluid in the pelvis which likely contains small amount of leaked contrast. 3. Other stable chronic and likely incidental findings, as described above.
[2024-01-27 20:08] LABS: Glucose,Whole Blood 83 mg/dL (70-110)
[2024-01-27] MEDS: HEPARIN SODIUM,PORCINE 5,000 UNIT/ML 1 ML VIAL SQ SCH (20:19)
[2024-01-27] MEDS: MIDODRINE 5 MG TAB PO ONE (21:59)
[2024-01-27] MEDS: HYDROmorphone 0.5 MG/0.5 ML SYRINGE IVP PRN (22:00)
[2024-01-27 23:50] LABS: Glucose,Whole Blood 73 mg/dL (70-110)
[2024-01-28 01:54] LABS: Glucose,Whole Blood 84 mg/dL (70-110)
[2024-01-28 04:07] LABS: Glucose,Whole Blood 70 mg/dL (70-110)
[2024-01-28 05:55] LABS: Glucose,Whole Blood 81 mg/dL (70-110)
[2024-01-28 07:25] LABS: ALT 7 U/L (4-49); AST 17 U/L (17-59); African American GFR (CKD) 69 (>60 ml/min/1.73 sqM); Albumin 1.9 g/dL (3.5-5.0); Alkaline Phosphatase 90 U/L (38-126); Anion Gap 6 mmol/L; Blood Urea Nitrogen 37 mg/dL (9-20); Calcium 7.5 mg/dL (8.4-10.2); Carbon Dioxide 16 mmol/L (22-30); Chloride 112 mmol/L (98-107); Glucose 67 mg/dL (74-99); Magnesium 1.8 mg/dL (1.6-2.3); Non-African American GFR(CKD) 60 (>60 ml/min/1.73 sqM); Phosphorus 3.5 mg/dL (2.5-4.5); Potassium 4.5 mmol/L (3.5-5.1); Sodium 134 mmol/L (137-145); Total Bilirubin 0.2 mg/dL (0.2-1.3); Total Protein 4.1 g/dL (6.3-8.2)
[2024-01-28 07:37] LABS: Basophils % (A) 0 %; Eosinophils % (A) 1 %; HCT 33.3 % (39.0-53.0); HGB 10.8 gm/dL (13.0-17.5); Lymphocytes # (A) 0.3 k/uL (1.0-4.8); Lymphocytes % (A) 7 %; MCH 31.8 pg (25.0-35.0); MCHC 32.6 g/dL (31.0-37.0); MCV 97.6 fL (80.0-100.0); Mean Platelet Volume 9.7; Monocytes # (A) 0.1 k/uL (0-1.0); Monocytes % (A) 2 %; Neutrophils # (A) 3.2 k/uL (1.3-7.7); Neutrophils % (A) 89 %; Platelet Count 122 k/uL (150-450); RBC 3.41 m/uL (4.30-5.90); RDW 13.5 % (11.5-15.5); WBC 3.6 k/uL (3.8-10.6)
[2024-01-28 07:42] LABS: Ionized Calcium 4.7 mg/dL (4.5-5.3)
[2024-01-28 08:10] LABS: Glucose,Whole Blood 89 mg/dL (70-110)
--- NOTE | 2024-01-28 10:08 | P.NPCON ---
History of Present Illness - Reason for Consult acute renal failure - History of Present Illness Reason for consultation: Acute kidney injury History of present illness: Patient is a 53-year-old male seen in renal consultation for acute kidney injury. Patient's creatinine on admission was 1.5 and was up to 2.46 yesterday. It is improved to 1.35 today. Unknown baseline renal function. Patient denies prior history of kidney disease. Patient initially presented to another facility with natasha pain going on for 2 to 3 days. Blood pressure noted to be low in the 70s. Patient did receive 4 L IV fluids yesterday and is currently maintained on normal saline at 130 cc an hour. CAT scan did show diverticulitis with small foci of extraluminal free intraperitoneal air concerning of perforation. Patient denies any significant abdominal pain. He is not passing gas at this time. Denies gross hematuria or dysuria. Currently has a Michel catheter. Denies use of nonsteroidals. Patient does have longstanding history of diabetes. Also has history of coronary artery disease with cardiac stents. No vomiting or diarrhea. States he is hungry and wants to eat. Vital signs are stable. General: No acute distress. HEENT: Head exam is unremarkable. LUNGS: No audible rhonchi or wheezes. HEART: Rate and Rhythm are regular. ABDOMEN: Nontender. EXTREMITITES: No edema. Past Medical History Past Medical History: Diabetes Mellitus, Hypertension History of Any Multi-Drug Resistant Organisms: None Reported Past Surgical History: Back Surgery Additional Past Surgical History / Comment(s): Brain surgery, Past Anesthesia/Blood Transfusion Reactions: No Reported Reaction Past Psychological History: Anxiety, Bipolar, Depression Smoking Status: Never smoker Past Alcohol Use History: None Reported Past Drug Use History: None Reported Medications and Allergies Home Medications Medication Instructions Recorded Confirmed Type ALPRAZolam [Xanax] 1 mg PO TID PRN 01/25/24 01/25/24 History Acetaminophen [Tylenol Arthritis] 650 mg PO Q8H PRN 01/25/24 01/25/24 History Benazepril HCl 40 mg PO HS 01/25/24 01/25/24 History Cholecalciferol (Vitamin D3) 75 mcg PO HS 01/25/24 01/25/24 History [Vitamin D3 (3000 Iu)] Meclizine HCl [Dramamine] 25 mg PO TID PRN 01/25/24 01/25/24 History Melatonin 5 mg PO HS 01/25/24 01/25/24 History PARoxetine HCL [Paxil] 40 mg PO HS 01/25/24 01/25/24 History Pregabalin [Lyrica] 150 mg PO BID MDD 300mg 01/25/24 01/25/24 History metFORMIN HCL 1,000 mg PO BID 01/25/24 01/25/24 History methocarbamoL [Robaxin-750] 750 mg PO TID PRN 01/25/24 01/25/24 History oxyCODONE HCL [oxyCODONE HCL (IR)] 15 mg PO Q6H PRN MDD 60mg 01/25/24 01/25/24 History Allergies Allergy/AdvReac Type Severity Reaction Status Date / Time Penicillins Allergy Anaphylaxis Verified 01/25/24 18:03 Physical Exam Vitals: Vital Signs Temp Pulse Resp BP BP Pulse Ox 01/28/24 04:07 97.9 F 86 18 89/58 90 L 01/27/24 23:47 98.0 F 92 18 80/53 92 L 01/27/24 21:50 18 94 L 01/27/24 20:52 98.2 F 91 20 83/51 90 L 01/27/24 19:07 98.3 F 92 18 88/59 93 L 01/27/24 12:00 85/58 01/27/24 11:55 97.5 F L 85 18 82/57 92 L Intake and Output 01/27/24 01/28/24 01/28/24 22:59 06:59 14:59 Output Total 900 600 Balance -900 -600 Output: Urine 900 600 Other: Voiding Method Indwelling Catheter Indwelling Catheter Results - Lab Results Most recent lab results Calcium 7.5 mg/dL (8.4-10.2) L 01/28/24 06:32 Phosphorus 3.5 mg/dL (2.5-4.5) 01/28/24 06:32 Magnesium 1.8 mg/dL (1.6-2.3) 01/28/24 06:32 01/28/24 06:32 01/28/24 06:32 Assessment and Plan Plan: Assessment: 1. Acute kidney injury secondary to vasomotor nephropathy secondary to hypovolemia and hypotension. Creatinine peaked at 2.46 this admission and is 1.35 today. Unknown baseline renal function. No hydronephrosis noted on CAT scan. 2. Diverticulitis with perforation. Surgery following. 3. Metabolic acidosis secondary to acute kidney injury and IV fluids. 4. Diabetes mellitus. 5. Coronary artery disease with cardiac stents. 6. Hypomagnesemia from poor intake. Replaced. Better. Plan: Maintain IV fluids. Changed to bicarb drip. Give another liter of normal saline bolus. Check a.m. cortisol level. Diet per surgery. Continue to hold all antihypertensives. Avoid nephrotoxins. Continue to monitor renal function and urine output. Thank you for the consultation. I will continue to follow the patient with you during his hospital stay.
--- NOTE | 2024-01-28 10:17 | P.PN ---
Subjective Progress Note Date: 01/28/24 CHIEF COMPLAINT: Diverticulitis HISTORY OF PRESENT ILLNESS: The patient is a 53-year-old male transfer from outside facility for perforated diverticulitis with abscess. Yesterday, patient had mild increased abdominal pain after further discussion with his family and nurse yesterday evening. Urgent CT scan was obtained. Additionally, patient was hypotensive due to prolonged minimal IV supplementation for 24 to 48 hours. Patient has been transferred to [facility]. Today, patient can palpate his abdomen "I have no pain." He reports feeling much better. No reports of fevers or chills. His initial acute renal failure has not improved after fluid boluses. His main concern includes his chronic back pain. ROS: No reports of nausea and vomiting. No fevers or chills. No new chest pain. No productive sputum PHYSICAL EXAM: VITAL SIGNS: Reviewed CONSTITUTIONAL: Well developed and in no acute distress. EYES: Conjuctivae without sclera icterus. Extraocular movements grossly intact. HEAD, EARS, NOSE, THROAT: Moist buccal mucosa. Head is atraumatic, normocephalic. Hears conversational speech. No nasal drainage. RESPIRATORY: Non-labored respirations and equal bilateral excursions. CARDIOVASCULAR: Palpable 2+ radial pulses. ABDOMEN: Soft, no diffuse peritonitis. MUSCULOSKELETAL: No gross deformity of the lower extremities noted. No clubbing. No cyanosis. SKIN: Good skin turgor. Well perfused. NEUROLOGIC: Cranial nerves II through XII grossly intact. No focal or later alizing signs. PSYCH: Appropriate affect. Alert and oriented to person, place and time. CLINICAL LABS: Reviewed. WBC low 3.6, neutropenia, hemoglobin low 10.8, anemia platelets low 122. Creatinine improved from 2.46-1.35 from acute renal failure. STUDIES: I personally reviewed his CT scan with findings of intra-abdominal ascites. Inflammatory changes along the sigmoid colon. No diffuse large free air or bowel obstruction. This is my independent interpretation. REPORT: CT report is concordant with current clinical findings including increased free air. ASSESSMENT: 1. Perforated diverticulitis with sepsis on admission 2. Acute renal failure due to severe dehydration 3. Chronic back pain with posterior thoracic lumbar fusion 4. Hypotension, multifactorial including sepsis, dehydration PLAN: 1. Clinically, patient reports that his abdomen has improved despite imaging findings 2. Recommend PICC line and IV antibiotics including TPN for prolonged n.p.o. status. 3. Michel catheter has been placed where his urine output has moderately improved 4. Patient seen with nephrology at bedside 5. Orthopedic spine consultation for severity of chronic back pain as patient reports she was due to have surgery this week at [facility] 6. Will monitor due to improvement of clinical course. 7. Cancel interventional radiology drainage due to no localized abscess identi fied 8. Surgery pending decline in clinical course 9. Shared decision making and care plan thoroughly reviewed with patient who wished to continue with conservative management and avoid surgery at this time Objective - Vital Signs Vital signs: Vital Signs Temp 97.9 F 01/28/24 04:07 Pulse 86 01/28/24 04:07 Resp 18 01/28/24 04:07 BP 89/58 01/28/24 04:07 Pulse Ox 90 L 01/28/24 04:07 FiO2 Intake & Output 01/27/24 01/28/24 01/28/24 18:59 06:59 18:59 Output Total 500 1000 Balance -500 -1000 Output: Urine 500 1000 Other: Voiding Method Toilet Indwelling Catheter Urinal - Labs CBC & Chem 7: 01/28/24 06:32 01/28/24 06:32 Labs: Abnormal Lab Results - Last 24 Hours (Table) 01/27/24 01/27/24 01/27/24 Range/Units 10:30 10:43 11:54 WBC 3.3 L (3.8-10.6) k/uL RBC 3.68 L (4.30-5.90) m/uL Hgb 11.6 L (13.0-17.5) gm/dL Hct 35.9 L (39.0-53.0) % Plt Count 136 L (150-450) k/uL Lymphocytes # (1.0-4.8) k/uL Lymphocytes # (Manual) 0.50 L (1.0-4.8) k/uL Myelocytes # (Manual) 0.10 H (0) k/uL APTT (22.0-30.0) sec Sodium (137-145) mmol/L Chloride (98-107) mmol/L Carbon Dioxide (22-30) mmol/L BUN (9-20) mg/dL Creatinine (0.66-1.25) mg/dL Glucose (74-99) mg/dL POC Glucose (mg/dL) 55 L (70-110) mg/dL Plasma Lactic Acid Collin 2.9 H* (0.7-2.0) mmol/L Calcium (8.4-10.2) mg/dL Total Protein (6.3-8.2) g/dL Albumin (3.5-5.0) g/dL 01/27/24 01/27/24 01/27/24 Range/Units 12:21 12:31 14:57 WBC (3.8-10.6) k/uL RBC (4.30-5.90) m/uL Hgb (13.0-17.5) gm/dL Hct (39.0-53.0) % Plt Count (150-450) k/uL Lymphocytes # (1.0-4.8) k/uL Lymphocytes # (Manual) (1.0-4.8) k/uL Myelocytes # (Manual) (0) k/uL APTT 32.9 H (22.0-30.0) sec Sodium (137-145) mmol/L Chloride (98-107) mmol/L Carbon Dioxide (22-30) mmol/L BUN (9-20) mg/dL Creatinine (0.66-1.25) mg/dL Glucose (74-99) mg/dL POC Glucose (mg/dL) 58 L (70-110) mg/dL Plasma Lactic Acid Collin 2.3 H* (0.7-2.0) mmol/L Calcium (8.4-10.2) mg/dL Total Protein (6.3-8.2) g/dL Albumin (3.5-5.0) g/dL 01/27/24 01/28/24 01/28/24 Range/Units 18:54 06:32 06:32 WBC 3.6 L (3.8-10.6) k/uL RBC 3.41 L (4.30-5.90) m/uL Hgb 10.8 L (13.0-17.5) gm/dL Hct 33.3 L (39.0-53.0) % Plt Count 122 L (150-450) k/uL Lymphocytes # 0.3 L (1.0-4.8) k/uL Lymphocytes # (Manual) (1.0-4.8) k/uL Myelocytes # (Manual) (0) k/uL APTT (22.0-30.0) sec Sodium 134 L (137-145) mmol/L Chloride 112 H (98-107) mmol/L Carbon Dioxide 16 L (22-30) mmol/L BUN 37 H (9-20) mg/dL Creatinine 1.35 H (0.66-1.25) mg/dL Glucose 67 L (74-99) mg/dL POC Glucose (mg/dL) (70-110) mg/dL Plasma Lactic Acid Collin 2.2 H* (0.7-2.0) mmol/L Calcium 7.5 L (8.4-10.2) mg/dL Total Protein 4.1 L (6.3-8.2) g/dL Albumin 1.9 L (3.5-5.0) g/dL
[2024-01-28] MEDS: SODIUM CHLORIDE 0.9% 1,000 ML IV ONE (10:55)
[2024-01-28] MEDS: CEFEPIME 2 GM in SODIUM CHLORIDE 0.9% 100 ML IVPB SCH (10:55)
--- NOTE | 2024-01-28 11:21 | P.CNOR ---
History of Present Illness - HPI Consult date: 01/28/24 Requesting physician: Misti Kincaid Consult reason: back pain History of present illness: History of Presenting Illness Patient is a pleasant 53-year-old male who was transferred from [facility] due to ruptured diverticulitis and consult for possible surgical intervention. Our services have been consulted due to chronic back pain. Patient does have medical history of a brain injury and states he has short-term memory loss. Patient states he has had frequent falls due to low blood pressure when standing. He does state he lives with his spouse. He reports a orthopedic history of a right knee replacement and multiple spine surgeries. Patient reports he is unsure of the date of his surgery. He was repeating 11/21/23 and then would state he doesn't remember. Patient is unable to state what procedure he had. He states he had two surgeries approx 6 weeks apart due to a fall and vertebral fracture. He does state that the last surgery was performed by Dr. Zak Crowder at [facility]. Attempts have been made to contact spouse via phone, the number listed in chart is unavailable. Attempted to call his daughter without answer. Patient has medical history of Type II DM, HTN, and brain injury. CT of the Abd/Pelvis taken on 01/27/24 demonstrates generalized osteopenia. Extensive multilevel posterior fusion hardware throughout the visualized spine with multilevel accompanying laminectomies. Moderate to severe loss of L2 vertebral body height is similar to before. Developmental fusion of T9-T10 vertebral bodies again noted. No acute osseous abnormality is seen. Patient is resting in bed. He does have complaint of abdominal pain and dry mouth due to n.p.o. status. Patient does report increased chronic back pain. He states since his last spine surgery he has been dealing with increasing diffuse lumbar pain causing difficulty with ambulation. Patient states he has not been up since admission due to hypotension. Patient is able to demonstrate ability to reposition himself in bed and use of bilateral upper and lower extremities. He is able to perform bed exercises, although he states during amb ulation he feels like his legs want to give out. Patient denies any numbness or tingling to the bilateral lower extremities. He denies any bowel or bladder incontinence/retention and perineal numbness or tingling. Review of Systems Pertinent positives and negatives as discussed in HPI, a complete review of systems was performed and all other systems are negative. Physical Examination Inspection: Negative for any open fractures, ecchymosis, significant erythema/ulcers. Sensation: Sensation is equal, symmetric, bilaterally intact throughout the upper and lower extremities Palpation: Nontender to palpation throughout bilateral upper and lower extremities and throughout spine exam Range of motion: Patient does have full range of motion bilateral upper and lower extremities on exam Motor: 5/5 in all major motor groups in the bilateral upper and 4/5 bilateral lower extremities. Special tests: Negative Homans bilaterally. Negative Leah bilaterally. Negative clonus bilaterally. Neurovascular: Radial pulse intact, 2+ bilaterally. Cap refill under 3 seconds in digits upper extremities. Assessment and Plan 1. Chronic back pain 2. h/o T11-S1 fusion 3. T9-T10 autofusion 4. Chronic L2 vertebral compression fracture 5. S1 hardware failure 6. Multiple comorbidities At this time we do not recommend any emergent/urgent orthopedic surgical intervention. Orthopedics is available to see patient throughout hospital stay. Please do not hesitate to contact us for any further questions. 2. Appreciate medical management 3. Pain management - Continue with conservative measures, IV dilaudid, and home medications of Oxy IR 15mg, Lyrica, Robaxin, and Tylenol. Utilize ice therapy to reduce pain and swelling. 4. GI prophylaxis -per GI 5. DVT prophylaxis - Heparin 6. PT/OT - weightbearing as tolerated with a walker as needed, when medically stable. 7. Appreciate consult I reviewed and discussed this case with my attending Dr. Vega, whom has reviewed this chart and films and is in agreement with assessment and plan of care as outlined above. I have personally seen and examined the patient, performed the documentation and the assessment and plan as written. Number of minutes spent on the visit: 30m. Past Medical History Past Medical History: Diabetes Mellitus, Hypertension History of Any Multi-Drug Resistant Organisms: None Reported Past Surgical History: Back Surgery Additional Past Surgical History / Comment(s): Brain surgery, Past Anesthesia/Blood Transfusion Reactions: No Reported Reaction Past Psychological History: Anxiety, Bipolar, Depression Smoking Status: Never smoker Past Alcohol Use History: None Reported Past Drug Use History: None Reported Medications and Allergies Home Medications Medication Instructions Recorded Confirmed Type ALPRAZolam [Xanax] 1 mg PO TID PRN 01/25/24 01/25/24 History Acetaminophen [Tylenol Arthritis] 650 mg PO Q8H PRN 01/25/24 01/25/24 History Benazepril HCl 40 mg PO HS 01/25/24 01/25/24 History Cholecalciferol (Vitamin D3) 75 mcg PO HS 01/25/24 01/25/24 History [Vitamin D3 (3000 Iu)] Meclizine HCl [Dramamine] 25 mg PO TID PRN 01/25/24 01/25/24 History Melatonin 5 mg PO HS 01/25/24 01/25/24 History PARoxetine HCL [Paxil] 40 mg PO HS 01/25/24 01/25/24 History Pregabalin [Lyrica] 150 mg PO BID MDD 300mg 01/25/24 01/25/24 History metFORMIN HCL 1,000 mg PO BID 01/25/24 01/25/24 History methocarbamoL [Robaxin-750] 750 mg PO TID PRN 01/25/24 01/25/24 History oxyCODONE HCL [oxyCODONE HCL (IR)] 15 mg PO Q6H PRN MDD 60mg 01/25/24 01/25/24 History Allergies Allergy/AdvReac Type Severity Reaction Status Date / Time Penicillins Allergy Anaphylaxis Verified 01/25/24 18:03 Results - Labs Labs: Abnormal Lab Results - Last 24 Hours (Table) 01/27/24 01/27/24 01/27/24 Range/Units 06:23 07:59 10:30 WBC 3.3 L (3.8-10.6) k/uL RBC 3.68 L (4.30-5.90) m/uL Hgb 11.6 L (13.0-17.5) gm/dL Hct 35.9 L (39.0-53.0) % Plt Count 136 L (150-450) k/uL Lymphocytes # (1.0-4.8) k/uL Lymphocytes # (Manual) 0.50 L (1.0-4.8) k/uL Myelocytes # (Manual) 0.10 H (0) k/uL APTT (22.0-30.0) sec Sodium (137-145) mmol/L Chloride (98-107) mmol/L Carbon Dioxide (22-30) mmol/L BUN (9-20) mg/dL Creatinine (0.66-1.25) mg/dL Glucose (74-99) mg/dL POC Glucose (mg/dL) 133 H (70-110) mg/dL Hemoglobin A1c 6.1 H (<=6.0) % Plasma Lactic Acid Collin (0.7-2.0) mmol/L Calcium (8.4-10.2) mg/dL Total Protein (6.3-8.2) g/dL Albumin (3.5-5.0) g/dL 01/27/24 01/27/24 01/27/24 Range/Units 10:43 11:54 12:21 WBC (3.8-10.6) k/uL RBC (4.30-5.90) m/uL Hgb (13.0-17.5) gm/dL Hct (39.0-53.0) % Plt Count (150-450) k/uL Lymphocytes # (1.0-4.8) k/uL Lymphocytes # (Manual) (1.0-4.8) k/uL Myelocytes # (Manual) (0) k/uL APTT 32.9 H (22.0-30.0) sec Sodium (137-145) mmol/L Chloride (98-107) mmol/L Carbon Dioxide (22-30) mmol/L BUN (9-20) mg/dL Creatinine (0.66-1.25) mg/dL Glucose (74-99) mg/dL POC Glucose (mg/dL) 55 L (70-110) mg/dL Hemoglobin A1c (<=6.0) % Plasma Lactic Acid Collin 2.9 H* (0.7-2.0) mmol/L Calcium (8.4-10.2) mg/dL Total Protein (6.3-8.2) g/dL Albumin (3.5-5.0) g/dL 01/27/24 01/27/24 01/27/24 Range/Units 12:31 14:57 18:54 WBC (3.8-10.6) k/uL RBC (4.30-5.90) m/uL Hgb (13.0-17.5) gm/dL Hct (39.0-53.0) % Plt Count (150-450) k/uL Lymphocytes # (1.0-4.8) k/uL Lymphocytes # (Manual) (1.0-4.8) k/uL Myelocytes # (Manual) (0) k/uL APTT (22.0-30.0) sec Sodium (137-145) mmol/L Chloride (98-107) mmol/L Carbon Dioxide (22-30) mmol/L BUN (9-20) mg/dL Creatinine (0.66-1.25) mg/dL Glucose (74-99) mg/dL POC Glucose (mg/dL) 58 L (70-110) mg/dL Hemoglobin A1c (<=6.0) % Plasma Lactic Acid Collin 2.3 H* 2.2 H* (0.7-2.0) mmol/L Calcium (8.4-10.2) mg/dL Total Protein (6.3-8.2) g/dL Albumin (3.5-5.0) g/dL 01/28/24 01/28/24 Range/Units 06:32 06:32 WBC 3.6 L (3.8-10.6) k/uL RBC 3.41 L (4.30-5.90) m/uL Hgb 10.8 L (13.0-17.5) gm/dL Hct 33.3 L (39.0-53.0) % Plt Count 122 L (150-450) k/uL Lymphocytes # 0.3 L (1.0-4.8) k/uL Lymphocytes # (Manual) (1.0-4.8) k/uL Myelocytes # (Manual) (0) k/uL APTT (22.0-30.0) sec Sodium 134 L (137-145) mmol/L Chloride 112 H (98-107) mmol/L Carbon Dioxide 16 L (22-30) mmol/L BUN 37 H (9-20) mg/dL Creatinine 1.35 H (0.66-1.25) mg/dL Glucose 67 L (74-99) mg/dL POC Glucose (mg/dL) (70-110) mg/dL Hemoglobin A1c (<=6.0) % Plasma Lactic Acid Collin (0.7-2.0) mmol/L Calcium 7.5 L (8.4-10.2) mg/dL Total Protein 4.1 L (6.3-8.2) g/dL Albumin 1.9 L (3.5-5.0) g/dL H & H 01/26/24 01/27/24 01/28/24 Range/Units 04:34 10:30 06:32 Hgb 15.0 11.6 L 10.8 L (13.0-17.0) g/dL Hct 44.2 35.9 L 33.3 L (39.6-50.0) % Coagulation 01/26/24 01/27/24 Range/Units 04:34 12:21 INR 1.23 H 1.1 (0.93-1.11) sec Result Diagrams: 01/28/24 06:32 01/28/24 06:32
--- NOTE | 2024-01-28 11:26 | CA ---
Transthoracic Echo Report Name: Mello Nix Age: 53 Gender: M : 1970 Exam Date: 01/28/2024 09:07 Exam Location: [place] [facility] Ht (in): 71 Wt (lb): 200 Ordering Physician: Misti Kincaid MD Attending/Referring Phys: [id number], [place] [employer] Attorney Zeinab Ramos RDCS Procedure CPT: Indications: abnormal ekg Cardiac Hx: Technical Quality: Poor Contrast 1: Total Dose (mL): Contrast 2: Total Dose (mL): MEASUREMENTS (Male / Female) Normal Values 2D ECHO LVOT Diameter 2.3 cm DOPPLER AV Peak Velocity 105.6 cm/s AV Peak Gradient 4.5 mmHg AV Mean Velocity 80.3 cm/s AV Mean Gradient 2.7 mmHg AV Velocity Time Integral 20.8 cm LVOT Peak Velocity 105.4 cm/s LVOT Peak Gradient 4.4 mmHg LVOT Velocity Time Integral 19.4 cm LVOT Stroke Volume 80.7 cm??? LVOT Stroke Volume Index 38.2 ml/m??? LVOT Cardiac Index 3078.3 cm???/min???m??? AV Area Cont Eq vti 3.9 cm??? AV Area Cont Eq pk 4.1 cm??? Mitral E Point Velocity 78.9 cm/s Mitral A Point Velocity 74.8 cm/s Mitral E to A Ratio 1.1 MV Deceleration Time 185.7 ms MV E' Velocity 8.3 cm/s Mitral E to MV E' Ratio 9.5 TR Peak Velocity 261.3 cm/s TR Peak Gradient 27.3 mmHg FINDINGS Left Ventricle Left ventricular ejection fraction is estimated at 55 %. Left ventricle not well visualized. Right Ventricle Normal right ventricular size and function. Unable to estimate the right ventricular systolic pressure. Right Atrium Normal right atrial size. Left Atrium Mild left atrial dilatation. Mitral Valve Structurally normal mitral valve. No evidence for mitral valve prolapse. No mitral stenosis. Trace mitral regurgitation. Aortic Valve Aortic valve not well visualized. No aortic valve stenosis or regurgitation. Tricuspid Valve Structurally normal tricuspid valve. No tricuspid stenosis. Moderate tricuspid regurgitation. Pulmonic Valve Pulmonic valve not well visualized. No pulmonic regurgitation. No pulmonic stenosis. Pericardium No pericardial effusion. Aorta Aortic root and proximal ascending aorta not well visualized. CONCLUSIONS Patient was uncooperative and refused to lay left lateral or supine after asking 6 different times. Study performed with patient on right side. Poorly visualized endocardial an intracardiac valves Normal LV systolic function Previewed by: Dr. Luis Manrique MD (Electronically Signed) Final Date: 28 Jan 2024 11:25
[2024-01-28 11:35] LABS: Glucose,Whole Blood 80 mg/dL (70-110)
--- NOTE | 2024-01-28 13:11 | P.PN ---
Subjective Progress Note Date: 01/28/24 * 53-year-old gentleman past medical history significant for chronic back pain, history of hypertension, history of diabetes mellitus presented to the emergency department with complaints of acute onset of abdominal pain on top of chronic back pain. Patient states symptom onset was 24 hours prior to presentation. Patient said he has a progressive decrease in appetite and had vomited a few times before coming in. Patient said he had 4 small stools however abdominal pain persisted. Patient was sent as a transfer from an outside hospital due to concern for diverticulitis with perforation. * General surgery team was contacted, patient was made n.p.o. * consultation obtained from general surgery and infectious disease * 01/27/24: Patient seen and evaluated at bedside, serum chemistry reviewed, creatinine elevated at 2.46, to be hypotensive, patient dose of lisinopril discontinued, follow-up lactate levels ordered, since lactate levels was elevated, patient given fluid bolus, patient to be transferred to [facility] will follow-up on vitals and blood pressure patient decompensates he will need to go to medical ICU, nursing staff instructed to call a team if patient becomes symptomatic. Patient did complain of abdominal discomfort, surgery team following and aware they had requested a CT abdomen pelvis that will be completed as well>> patient reluctant to get surgery done, patient states she does not trust doctors. Patient daughter at bedside as well care plan explained. Patient and other family members accompanied him in the room as well patient was explained if he decompensates he would need surgery, apparently per chart review patient has only not been forefront with the nursing staff regarding abdominal pain * 01/28/24: Patient seen and evaluated bedside, blood work reviewed WBC 3.6 hemoglobin 10.8 platelet count of 122, serum chemistry sodium 134 potassium 4.5, carbon dioxide 16 BUN 37 creatinine 1.35, albumin of 1.9. CT abdomen and pelvis completed 01/26 reviewed by surgery team as minna findings of diverticulitis multiple foci of free intraperitoneal air concerning for perforated diverticulitis, small amount of fluid in the pelvis noted as well. Does have degenerative changes of spine PHYSICAL EXAMINATION: GENERAL: The patient is alert and oriented x3, ill appearance HEENT: Pupils are round and equally reacting to light. EOMI. Normocephalic, atraumatic. CARDIOVASCULAR: S1 and S2 present. No murmurs, rubs, or gallops. PULMONARY: Chest is clear to auscultation, no wheezing or crackles. ABDOMEN: Mild tenderness on palpation, soft, distended, no guarding no rigidity MUSCULOSKELETAL: No joint swelling or deformity. EXTREMITIES: No cyanosis, clubbing, or pedal edema. NEUROLOGICAL: Gross neurological examination did not reveal any focal deficits. 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 * Timing for surgical intervention to be determined by general surgery team, initially patient was hesitant for surgical intervention * In regards to diabetes mellitus since patient is n.p.o. Accu-Cheks every 4 hours continue patient on correctional insulin monitor for hypoglycemia * History of hypertension >> patient noted to be hypotensive, lisinopril discontinued, given fluid, lactate levels obtained * Regards to chronic pain syndrome/chronic back pain as needed IV Dilaudid ordered, continue Robaxin, continue Lyrica * Code status full code Objective - Vital Signs Vital signs: Vital Signs Temp 97.9 F 01/28/24 04:07 Pulse 86 01/28/24 04:07 Resp 18 01/28/24 04:07 BP 89/58 01/28/24 04:07 Pulse Ox 90 L 01/28/24 04:07 FiO2 Intake & Output 01/27/24 01/28/24 01/28/24 18:59 06:59 18:59 Output Total 500 1000 Balance -500 -1000 Output: Urine 500 1000 Other: Voiding Method Toilet Indwelling Catheter Urinal - Labs CBC & Chem 7: 01/28/24 06:32 01/28/24 06:32 Labs: Abnormal Lab Results - Last 24 Hours (Table) 01/27/24 01/27/24 01/27/24 Range/Units 06:23 10:30 10:43 WBC 3.3 L (3.8-10.6) k/uL RBC 3.68 L (4.30-5.90) m/uL Hgb 11.6 L (13.0-17.5) gm/dL Hct 35.9 L (39.0-53.0) % Plt Count 136 L (150-450) k/uL Lymphocytes # (1.0-4.8) k/uL Lymphocytes # (Manual) 0.50 L (1.0-4.8) k/uL Myelocytes # (Manual) 0.10 H (0) k/uL APTT (22.0-30.0) sec Sodium (137-145) mmol/L Chloride (98-107) mmol/L Carbon Dioxide (22-30) mmol/L BUN (9-20) mg/dL Creatinine (0.66-1.25) mg/dL Glucose (74-99) mg/dL POC Glucose (mg/dL) (70-110) mg/dL Hemoglobin A1c 6.1 H (<=6.0) % Plasma Lactic Acid Collin 2.9 H* (0.7-2.0) mmol/L Calcium (8.4-10.2) mg/dL Total Protein (6.3-8.2) g/dL Albumin (3.5-5.0) g/dL 01/27/24 01/27/24 01/27/24 Range/Units 11:54 12:21 12:31 WBC (3.8-10.6) k/uL RBC (4.30-5.90) m/uL Hgb (13.0-17.5) gm/dL Hct (39.0-53.0) % Plt Count (150-450) k/uL Lymphocytes # (1.0-4.8) k/uL Lymphocytes # (Manual) (1.0-4.8) k/uL Myelocytes # (Manual) (0) k/uL APTT 32.9 H (22.0-30.0) sec Sodium (137-145) mmol/L Chloride (98-107) mmol/L Carbon Dioxide (22-30) mmol/L BUN (9-20) mg/dL Creatinine (0.66-1.25) mg/dL Glucose (74-99) mg/dL POC Glucose (mg/dL) 55 L 58 L (70-110) mg/dL Hemoglobin A1c (<=6.0) % Plasma Lactic Acid Collin (0.7-2.0) mmol/L Calcium (8.4-10.2) mg/dL Total Protein (6.3-8.2) g/dL Albumin (3.5-5.0) g/dL 01/27/24 01/27/24 01/28/24 Range/Units 14:57 18:54 06:32 WBC (3.8-10.6) k/uL RBC (4.30-5.90) m/uL Hgb (13.0-17.5) gm/dL Hct (39.0-53.0) % Plt Count (150-450) k/uL Lymphocytes # (1.0-4.8) k/uL Lymphocytes # (Manual) (1.0-4.8) k/uL Myelocytes # (Manual) (0) k/uL APTT (22.0-30.0) sec Sodium 134 L (137-145) mmol/L Chloride 112 H (98-107) mmol/L Carbon Dioxide 16 L (22-30) mmol/L BUN 37 H (9-20) mg/dL Creatinine 1.35 H (0.66-1.25) mg/dL Glucose 67 L (74-99) mg/dL POC Glucose (mg/dL) (70-110) mg/dL Hemoglobin A1c (<=6.0) % Plasma Lactic Acid Collin 2.3 H* 2.2 H* (0.7-2.0) mmol/L Calcium 7.5 L (8.4-10.2) mg/dL Total Protein 4.1 L (6.3-8.2) g/dL Albumin 1.9 L (3.5-5.0) g/dL 01/28/24 Range/Units 06:32 WBC 3.6 L (3.8-10.6) k/uL RBC 3.41 L (4.30-5.90) m/uL Hgb 10.8 L (13.0-17.5) gm/dL Hct 33.3 L (39.0-53.0) % Plt Count 122 L (150-450) k/uL Lymphocytes # 0.3 L (1.0-4.8) k/uL Lymphocytes # (Manual) (1.0-4.8) k/uL Myelocytes # (Manual) (0) k/uL APTT (22.0-30.0) sec Sodium (137-145) mmol/L Chloride (98-107) mmol/L Carbon Dioxide (22-30) mmol/L BUN (9-20) mg/dL Creatinine (0.66-1.25) mg/dL Glucose (74-99) mg/dL POC Glucose (mg/dL) (70-110) mg/dL Hemoglobin A1c (<=6.0) % Plasma Lactic Acid Collin (0.7-2.0) mmol/L Calcium (8.4-10.2) mg/dL Total Protein (6.3-8.2) g/dL Albumin (3.5-5.0) g/dL
--- NOTE | 2024-01-28 13:12 | P.CRDCN ---
History of Present Illness Consult date: 01/28/24 Reason for Consult (text): abnormal EKG History of present illness: History of present illness: This is a 53-year-old male follows with a sash assembler at [facility] with past medical history of hypertension, diabetes mellitus type 2, subarachnoid bleed. Patient was being helped with his to the bathroom and ended up passing out falling down and hitting his head and patient had full loss of consciousness. On presentation, patient had a temperature of 100.4. His states he has a chronically low blood pressure but not quite this low. Patient was a transfer from [facility] due to ruptured diverticulitis and has been followed by general surgery. He is also followed by nephrology for acute kidney injury. Patient is very adamant that he does not have a heart or chest problem and does not know why we are seeing him. EKG sinus rhythm with PVCs Echocardiogram performed on 01/28/2024 reveals EF of 55%. Patient would not lay on the left side or supine and study was performed with patient on his right side. Poorly visualized endocardial and intracardiac valves. WBC 3.6, hemoglobin 10.8, platelet count 122. INR 1.1. Sodium 134, potassium 4.5, chloride 112, CO2 16, BUN 37 creatinine 1.35 down from a peak of 2.46. Gl ucose 67. A1c 6.1. Troponin negative x 2. Home cardiac medications: Benazepril 40 mg at bedtime. Review Of Systems: At the time of my exam: CONSTITUTIONAL: Denies fever or chills. HEENT: Denies blurred vision, vision changes, or eye pain. Denies hemoptysis CARDIOVASCULAR: Denies chest pain. Denies orthopnea. Denies PND. Denies palpitations RESPIRATORY: Denies shortness of breath. GASTROINTESTINAL: Reports abdominal pain. Denies nausea or vomiting. HEMATOLOGIC: Denies bleeding disorders. GENITOURINARY: Denies any blood in urine. SKIN: Denies pruitis. Denies rash. Physical examination: Gen: This is a 53-year-old male in no acute distress VS: reviewed, blood pressure 82/58, heart rate 89, pulse ox 94% on room air. HEENT: Head is atraumatic, normocephalic. Pupils equal, round. Sclerae is anicteric. NECK: Supple. No JVD. LUNGS: Clear to auscultation. No wheezes or rhonchi. No intercostal retractions. HEART: Regular rate and rhythm. No murmur. ABDOMEN: Soft No tenderness. EXTREMITIES: No pedal edema. No calf tenderness. NEUROLOGICAL: Patient is awake, alert and oriented x3. Assessment: Syncopal episode possibly vasovagal Acute kidney injury Diverticulitis with perforation Metabolic acidosis Diabetes mellitus type 2 Hypertension Plan: Hold blood pressure medications due to hypotension No further cardiac workup at this time Cardiology will sign off this case and follow on an as-needed basis. Please reconsult for any new concerns. Patient may follow-up with his primary sash assembler in one to 2 weeks for possible event monitor. Thank you kindly for this consultation. Nurse practitioner note has been reviewed, I agree with documented findings and plan of care. Patient was seen and examined. Past Medical History Past Medical History: Diabetes Mellitus, Hypertension History of Any Multi-Drug Resistant Organisms: None Reported Past Surgical History: Back Surgery Additional Past Surgical History / Comment(s): Brain surgery, Past Anesthesia/Blood Transfusion Reactions: No Reported Reaction Past Psychological History: Anxiety, Bipolar, Depression Smoking Status: Never smoker Past Alcohol Use History: None Reported Past Drug Use History: None Reported Medications and Allergies Home Medications Medication Instructions Recorded Confirmed Type ALPRAZolam [Xanax] 1 mg PO TID PRN 01/25/24 01/25/24 History Acetaminophen [Tylenol Arthritis] 650 mg PO Q8H PRN 01/25/24 01/25/24 History Benazepril HCl 40 mg PO HS 01/25/24 01/25/24 History Cholecalciferol (Vitamin D3) 75 mcg PO HS 01/25/24 01/25/24 History [Vitamin D3 (3000 Iu)] Meclizine HCl [Dramamine] 25 mg PO TID PRN 01/25/24 01/25/24 History Melatonin 5 mg PO HS 01/25/24 01/25/24 History PARoxetine HCL [Paxil] 40 mg PO HS 01/25/24 01/25/24 History Pregabalin [Lyrica] 150 mg PO BID MDD 300mg 01/25/24 01/25/24 History metFORMIN HCL 1,000 mg PO BID 01/25/24 01/25/24 History methocarbamoL [Robaxin-750] 750 mg PO TID PRN 01/25/24 01/25/24 History oxyCODONE HCL [oxyCODONE HCL (IR)] 15 mg PO Q6H PRN MDD 60mg 01/25/24 01/25/24 History Allergies Allergy/AdvReac Type Severity Reaction Status Date / Time Penicillins Allergy Anaphylaxis Verified 01/25/24 18:03 Physical Exam Vitals: Vital Signs Temp Pulse Resp BP BP Pulse Ox 01/28/24 08:20 98 F 89 17 82/58 94 L 01/28/24 04:07 97.9 F 86 18 89/58 90 L 01/27/24 23:47 98.0 F 92 18 80/53 92 L 01/27/24 21:50 18 94 L 01/27/24 20:52 98.2 F 91 20 83/51 90 L 01/27/24 19:07 98.3 F 92 18 88/59 93 L Intake and Output 01/27/24 01/28/24 01/28/24 22:59 06:59 14:59 Output Total 900 600 Balance -900 -600 Output: Urine 900 600 Other: Voiding Method Indwelling Catheter Indwelling Catheter Indwelling Catheter Results 01/28/24 06:32 01/28/24 06:32 Cardiac Enzymes 01/27/24 01/27/24 01/28/24 Range/Units 12:21 14:57 06:32 AST 17 (17-59) U/L Troponin I 0.013 <0.012 (0.000-0.034) ng/mL Coagulation 01/27/24 Range/Units 12:21 PT 11.8 (10.0-12.5) sec APTT 32.9 H (22.0-30.0) sec Lipids 01/27/24 Range/Units 06:23 Triglycerides 108.00 (0.00-149.00) mg/dL CBC 01/28/24 Range/Units 06:32 WBC 3.6 L (3.8-10.6) k/uL RBC 3.41 L (4.30-5.90) m/uL Hgb 10.8 L (13.0-17.5) gm/dL Hct 33.3 L (39.0-53.0) % Plt Count 122 L (150-450) k/uL Comprehensive Metabolic Panel 01/28/24 Range/Units 06:32 Sodium 134 L (137-145) mmol/L Potassium 4.5 (3.5-5.1) mmol/L Chloride 112 H (98-107) mmol/L Carbon Dioxide 16 L (22-30) mmol/L BUN 37 H (9-20) mg/dL Creatinine 1.35 H (0.66-1.25) mg/dL Glucose 67 L (74-99) mg/dL Calcium 7.5 L (8.4-10.2) mg/dL AST 17 (17-59) U/L ALT 7 (4-49) U/L Alkaline Phosphatase 90 (38-126) U/L Total Protein 4.1 L (6.3-8.2) g/dL Albumin 1.9 L (3.5-5.0) g/dL Current Medications Generic Name Dose Route Start Last Admin Trade Name Freq PRN Reason Stop Dose Admin Acetaminophen 1,000 mg 01/27/24 12:00 01/28/24 05:53 Acetaminophen Tab 500 Mg Tab PO Not Given Q6HR GREGORIO Alprazolam 1 mg 01/25/24 18:12 01/26/24 12:51 Alprazolam 1 Mg Tab PO 1 mg TID PRN Administration Anxiety Cholecalciferol 75 mcg 01/25/24 21:00 01/27/24 20:20 Cholecalciferol 25 Mcg (1000 Iu) Tablet PO 75 mcg HS GREGORIO Administration Dextrose/Water 25 ml 01/26/24 09:14 01/27/24 04:31 Dextrose 50% Syringe 50 Ml IVP 25 ml PER PROTOCOL PRN Administration Hypoglycemia Protocol Dextrose/Water 50 ml 01/26/24 09:14 01/27/24 12:40 Dextrose 50% Syringe 50 Ml IVP 50 ml PER PROTOCOL PRN Administration Hypoglycemia Protocol Heparin Sodium (Porcine) 5,000 unit 01/27/24 21:00 01/28/24 08:22 Heparin Sodium,Porcine 5,000 Unit/Ml 1 Ml Vial SQ Not Given Q12HR GREGORIO Hydralazine HCl 5 mg 01/26/24 09:18 Hydralazine Hcl 20 Mg/Ml 1 Ml Vial IVP Q6HR PRN Blood Pressure - High Hydromorphone HCl 1 mg 01/27/24 11:44 Hydromorphone 1 Mg/Ml 1 Ml Syringe IVP Q3HR PRN Moderate to Severe Pain (4-10) Hydromorphone HCl 0.5 mg 01/27/24 21:45 01/28/24 10:00 Hydromorphone 0.5 Mg/0.5 Ml Syringe IVP 0.5 mg Q4HR PRN Administration Pain Hydromorphone HCl 0.5 mg 01/29/24 07:00 Hydromorphone 0.5 Mg/0.5 Ml Syringe IVP 01/29/24 23:00 Q5M PRN Phase 1 or 2 - Pain Control Metronidazole 500 mg/ IV 100 mls @ 100 mls/hr 01/26/24 00:00 01/28/24 05:55 Solution IVPB 100 mls/hr Q6HR [facility] Administration Protocol Sodium Bicarbonate 150 ml/ 1,150 mls @ 100 mls/hr 01/28/24 10:15 Dextrose/Water IV .[id number] GREGORIO Cefepime HCl 2 gm/ Sodium 100 mls @ 25 mls/hr 01/28/24 10:15 01/28/24 10:55 Chloride IVPB 25 mls/hr Q8HR [facility] Administration Protocol Lactated Ringer's 1,000 mls @ 20 mls/hr 01/28/24 10:30 Lactated Ringers IV .Q24H GREGORIO Insulin Aspart 0 unit 01/26/24 12:00 01/28/24 08:15 Insulin Aspart (Novolog) 100 Unit/Ml Vial SQ Not Given Q4HR [facility] Protocol Meclizine HCl 25 mg 01/25/24 18:12 Meclizine 25 Mg Tab PO TID PRN Motion Sickness Melatonin 5 mg 01/25/24 21:00 01/27/24 20:20 Melatonin 5 Mg Tablet PO 5 mg HS GREGORIO Administration Methocarbamol 750 mg 01/25/24 18:12 01/27/24 20:56 Methocarbamol 750 Mg Tab PO 750 mg TID PRN Administration Muscle Spasm Naloxone HCl 0.2 mg 01/25/24 18:02 Naloxone 0.4 Mg/Ml 1 Ml Vial IV Q2M PRN Opioid Reversal Ondansetron HCl 4 mg 01/25/24 18:02 01/26/24 05:20 Ondansetron 4 Mg/2 Ml Vial IVP 4 mg Q8HR PRN Administration Nausea And Vomiting Pantoprazole Sodium 40 mg 01/25/24 18:15 01/28/24 08:23 Pantoprazole 40 Mg/10 Ml Vial IV 40 mg DAILY GREGORIO Administration Paroxetine HCl 40 mg 01/25/24 21:00 01/27/24 20:21 Paroxetine 20 Mg Tab PO 40 mg HS GREGORIO Administration Pregabalin 150 mg 01/25/24 21:00 01/28/24 10:00 Pregabalin 75 Mg Cap PO 150 mg BID GREGORIO Administration Intake and Output 01/27/24 01/28/24 01/28/24 22:59 06:59 14:59 Output Total 900 600 Balance -900 -600 Output: Urine 900 600 Other: Voiding Method Indwelling Catheter Indwelling Catheter Indwelling Catheter 01/28/24 06:32 01/28/24 06:32
[2024-01-28] MEDS: DEXTROSE 5% IN WATER 1,000 ML with SODIUM BICARB (1 MEQ/ML) 150 ML IV SCH (14:37)
[2024-01-28 16:41] LABS: Glucose,Whole Blood 95 mg/dL (70-110)
[2024-01-28] MEDS: LACTATED RINGERS 1,000 ML IV SCH (17:15)
--- NOTE | 2024-01-28 19:41 | P.PN ---
Subjective Progress Note Date: 01/27/24 Principal diagnosis: Reason for follow-up is perforated diverticulitis with sepsis on admission Patient is a 53-year-old male with past medical history significant for diabetes mellitus hypertension anxiety bipolar depression and brain surgery patient presented to hospital with abdominal pain and this patient has been diagnosed with the ruptured diverticulitis and sepsis for the patient was transferred to [facility]. On today's evaluation that is 01/27/2024,the patient did have resolution of his fever and is afebrile today patient is currently breathing comfortably not requiring any supplemental oxygen denies any chest pain still complaining of abdominal pain nausea but no vomiting. Patient white count of 3.3 creatinine is 2.46 Objective - Vital Signs Vital signs: Vital Signs Temp 97.5 F L 01/27/24 11:55 Pulse 85 01/27/24 11:55 Resp 18 01/27/24 11:55 BP 85/58 01/27/24 12:00 Pulse Ox 92 L 01/27/24 11:55 FiO2 Intake & Output 01/27/24 01/27/24 01/28/24 06:59 18:59 06:59 Output Total 1440 500 Balance -1440 -500 Output: Urine 1440 500 Other: Voiding Method Toilet Toilet Urinal Urinal - Exam GENERAL DESCRIPTION: Middle-age male lying in bed in no distress RESPIRATORY SYSTEM: Unlabored breathing , decreased breath sounds at bases HEART: S1 S2 regular rate and rhythm , ABDOMEN: Soft , mild tenderness EXTREMITIES: No edema feet - Labs CBC & Chem 7: 01/28/24 06:32 01/28/24 06:32 Labs: Abnormal Lab Results - Last 24 Hours (Table) 01/27/24 01/27/24 01/27/24 Range/Units 03:50 04:16 04:22 WBC (3.8-10.6) k/uL RBC (4.30-5.90) m/uL Hgb (13.0-17.5) gm/dL Hct (39.0-53.0) % Plt Count (150-450) k/uL Lymphocytes # (Manual) (1.0-4.8) k/uL Myelocytes # (Manual) (0) k/uL APTT (22.0-30.0) sec Sodium (137-145) mmol/L Carbon Dioxide (22-30) mmol/L BUN (9-20) mg/dL Creatinine (0.66-1.25) mg/dL Glucose (74-99) mg/dL POC Glucose (mg/dL) 69 L 66 L 61 L (70-110) mg/dL Hemoglobin A1c (<=6.0) % Plasma Lactic Acid Collin (0.7-2.0) mmol/L Magnesium (1.6-2.3) mg/dL 01/27/24 01/27/24 01/27/24 Range/Units 06:23 06:23 07:22 WBC (3.8-10.6) k/uL RBC (4.30-5.90) m/uL Hgb (13.0-17.5) gm/dL Hct (39.0-53.0) % Plt Count (150-450) k/uL Lymphocytes # (Manual) (1.0-4.8) k/uL Myelocytes # (Manual) (0) k/uL APTT (22.0-30.0) sec Sodium 132 L (137-145) mmol/L Carbon Dioxide 19 L (22-30) mmol/L BUN 44 H (9-20) mg/dL Creatinine 2.46 H (0.66-1.25) mg/dL Glucose 49 L* (74-99) mg/dL POC Glucose (mg/dL) 62 L (70-110) mg/dL Hemoglobin A1c 6.1 H (<=6.0) % Plasma Lactic Acid Collin (0.7-2.0) mmol/L Magnesium 1.5 L (1.6-2.3) mg/dL 01/27/24 01/27/24 01/27/24 Range/Units 07:59 10:30 10:43 WBC 3.3 L (3.8-10.6) k/uL RBC 3.68 L (4.30-5.90) m/uL Hgb 11.6 L (13.0-17.5) gm/dL Hct 35.9 L (39.0-53.0) % Plt Count 136 L (150-450) k/uL Lymphocytes # (Manual) 0.50 L (1.0-4.8) k/uL Myelocytes # (Manual) 0.10 H (0) k/uL APTT (22.0-30.0) sec Sodium (137-145) mmol/L Carbon Dioxide (22-30) mmol/L BUN (9-20) mg/dL Creatinine (0.66-1.25) mg/dL Glucose (74-99) mg/dL POC Glucose (mg/dL) 133 H (70-110) mg/dL Hemoglobin A1c (<=6.0) % Plasma Lactic Acid Collin 2.9 H* (0.7-2.0) mmol/L Magnesium (1.6-2.3) mg/dL 01/27/24 01/27/24 01/27/24 Range/Units 11:54 12:21 12:31 WBC (3.8-10.6) k/uL RBC (4.30-5.90) m/uL Hgb (13.0-17.5) gm/dL Hct (39.0-53.0) % Plt Count (150-450) k/uL Lymphocytes # (Manual) (1.0-4.8) k/uL Myelocytes # (Manual) (0) k/uL APTT 32.9 H (22.0-30.0) sec Sodium (137-145) mmol/L Carbon Dioxide (22-30) mmol/L BUN (9-20) mg/dL Creatinine (0.66-1.25) mg/dL Glucose (74-99) mg/dL POC Glucose (mg/dL) 55 L 58 L (70-110) mg/dL Hemoglobin A1c (<=6.0) % Plasma Lactic Acid Collin (0.7-2.0) mmol/L Magnesium (1.6-2.3) mg/dL 01/27/24 Range/Units 14:57 WBC (3.8-10.6) k/uL RBC (4.30-5.90) m/uL Hgb (13.0-17.5) gm/dL Hct (39.0-53.0) % Plt Count (150-450) k/uL Lymphocytes # (Manual) (1.0-4.8) k/uL Myelocytes # (Manual) (0) k/uL APTT (22.0-30.0) sec Sodium (137-145) mmol/L Carbon Dioxide (22-30) mmol/L BUN (9-20) mg/dL Creatinine (0.66-1.25) mg/dL Glucose (74-99) mg/dL POC Glucose (mg/dL) (70-110) mg/dL Hemoglobin A1c (<=6.0) % Plasma Lactic Acid Collin 2.3 H* (0.7-2.0) mmol/L Magnesium (1.6-2.3) mg/dL Assessment and Plan (1) Perforation of sigmoid colon due to diverticulitis Current Visit: Yes Status: Acute Code(s): K57.20 - DVTRCLI OF LG INT W PERFORATION AND ABSCESS W/O BLEEDING SNOMED Code(s): 2993196941474160 (2) Peritonitis Current Visit: Yes Status: Acute Code(s): K65.9 - PERITONITIS, UNSPECIFIED SNOMED Code(s): 57164792 (3) Penicillin allergy Current Visit: Yes Status: Acute Code(s): Z88.0 - ALLERGY STATUS TO PENICILLIN SNOMED Code(s): 78602507 Plan: 1patient presented hospital with sepsis in this patient did have fever tachycardia source is acute ruptured appendicitis and peritonitis and will need to cover for enteric gram-negative to be the likely pathogen less likely gram- positive kike 2-penicillin allergy that will limit the number of antibiotics safe to use 3-patient to continue with cefepime 2 g every 8 hours and Flagyl await repeat CT abdominal pelvis scheduled for this evening Dictation was produced using [employer] dictation software. please excuse any grammatical, word or spelling errors. Time with Patient: Less than 30
--- NOTE | 2024-01-28 19:42 | P.PN ---
Subjective Progress Note Date: 01/28/24 Principal diagnosis: Reason for follow-up is perforated diverticulitis with sepsis on admission Patient is a 53-year-old male with past medical history significant for diabetes mellitus hypertension anxiety bipolar depression and brain surgery patient presented to hospital with abdominal pain and this patient has been diagnosed with the ruptured diverticulitis and sepsis for the patient was transferred to [facility]. On today's evaluation that is 01/28/2024, the patient continues to be afebrile, the patient is on room air and breathing comfortably, the Pt denies having any chest pain or cough, the patient no abdominal pain has slightly decreased in intensity no nausea no vomiting slightly better today. Patient did have repeat CT abdominal pelvis last evening with evidence of diverticulitis multiple small foci of extraluminal free intraperitoneal air and continued leak, patient white count of 3.6 creatinine is 1.35 Objective - Vital Signs Vital signs: Vital Signs Temp 98 F 01/28/24 08:20 Pulse 89 01/28/24 08:20 Resp 17 01/28/24 08:20 BP 82/58 01/28/24 08:20 Pulse Ox 94 L 01/28/24 08:20 FiO2 Intake & Output 01/27/24 01/28/24 01/28/24 18:59 06:59 18:59 Output Total 500 1000 Balance -500 -1000 Output: Urine 500 1000 Other: Voiding Method Toilet Indwelling Catheter Indwelling Catheter Urinal - Exam GENERAL DESCRIPTION: Middle-age male lying in bed in no distress RESPIRATORY SYSTEM: Unlabored breathing , decreased breath sounds at bases HEART: S1 S2 regular rate and rhythm , ABDOMEN: Soft , mild tenderness EXTREMITIES: No edema feet - Labs CBC & Chem 7: 01/28/24 06:32 01/28/24 06:32 Labs: Abnormal Lab Results - Last 24 Hours (Table) 01/27/24 01/27/24 01/27/24 Range/Units 12:21 14:57 18:54 WBC (3.8-10.6) k/uL RBC (4.30-5.90) m/uL Hgb (13.0-17.5) gm/dL Hct (39.0-53.0) % Plt Count (150-450) k/uL Lymphocytes # (1.0-4.8) k/uL APTT 32.9 H (22.0-30.0) sec Sodium (137-145) mmol/L Chloride (98-107) mmol/L Carbon Dioxide (22-30) mmol/L BUN (9-20) mg/dL Creatinine (0.66-1.25) mg/dL Glucose (74-99) mg/dL Plasma Lactic Acid Collin 2.3 H* 2.2 H* (0.7-2.0) mmol/L Calcium (8.4-10.2) mg/dL Total Protein (6.3-8.2) g/dL Albumin (3.5-5.0) g/dL 01/28/24 01/28/24 Range/Units 06:32 06:32 WBC 3.6 L (3.8-10.6) k/uL RBC 3.41 L (4.30-5.90) m/uL Hgb 10.8 L (13.0-17.5) gm/dL Hct 33.3 L (39.0-53.0) % Plt Count 122 L (150-450) k/uL Lymphocytes # 0.3 L (1.0-4.8) k/uL APTT (22.0-30.0) sec Sodium 134 L (137-145) mmol/L Chloride 112 H (98-107) mmol/L Carbon Dioxide 16 L (22-30) mmol/L BUN 37 H (9-20) mg/dL Creatinine 1.35 H (0.66-1.25) mg/dL Glucose 67 L (74-99) mg/dL Plasma Lactic Acid Collin (0.7-2.0) mmol/L Calcium 7.5 L (8.4-10.2) mg/dL Total Protein 4.1 L (6.3-8.2) g/dL Albumin 1.9 L (3.5-5.0) g/dL Assessment and Plan (1) Penicillin allergy Current Visit: Yes Status: Acute Code(s): Z88.0 - ALLERGY STATUS TO PENICILLIN SNOMED Code(s): 77537835 (2) Perforation of sigmoid colon due to diverticulitis Current Visit: Yes Status: Acute Code(s): K57.20 - DVTRCLI OF LG INT W PERFORATION AND ABSCESS W/O BLEEDING SNOMED Code(s): 3704241449741712 (3) Peritonitis Current Visit: Yes Status: Acute Code(s): K65.9 - PERITONITIS, UNSPECIFIED SNOMED Code(s): 77197320 Plan: 1patient presented hospital with sepsis in this patient did have fever tachycardia source is acute ruptured appendicitis and peritonitis and will need to cover for enteric gram-negative to be the likely pathogen less likely gram- positive kike 2-penicillin allergy that will limit the number of antibiotics safe to use 3-patient repeat CT abdominal pelvis did shows diverticulitis with multiple foci of air and contained leak 4-patient is currently covered with cefepime and Flagyl surgery is recommending n.p.o. status and prolonged IV antibiotic therapy Dictation was produced using [employer] dictation software. please excuse any grammatical, word or spelling errors. Time with Patient: Less than 30
[2024-01-28 20:18] LABS: Glucose,Whole Blood 75 mg/dL (70-110)
[2024-01-28 23:34] LABS: Glucose,Whole Blood 98 mg/dL (70-110)
[2024-01-29 03:42] LABS: Glucose,Whole Blood 80 mg/dL (70-110)
[2024-01-29] MEDS ORDERED: HYDROmorphone 0.5 MG/0.5 ML SYRINGE IVP PRN (07:00)
[2024-01-29 07:12] LABS: HCT 33.2 % (39.0-53.0); HGB 10.8 gm/dL (13.0-17.5); MCH 31.4 pg (25.0-35.0); MCHC 32.6 g/dL (31.0-37.0); MCV 96.2 fL (80.0-100.0); Mean Platelet Volume 9.4; Platelet Count 137 k/uL (150-450); RBC 3.45 m/uL (4.30-5.90); RDW 13.8 % (11.5-15.5); WBC 4.7 k/uL (3.8-10.6)
[2024-01-29 07:37] LABS: African American GFR (CKD) >90 (>60 ml/min/1.73 sqM); Anion Gap 4 mmol/L; Blood Urea Nitrogen 21 mg/dL (9-20); Calcium 7.7 mg/dL (8.4-10.2); Carbon Dioxide 21 mmol/L (22-30); Chloride 111 mmol/L (98-107); Glucose 78 mg/dL (74-99); Magnesium 1.9 mg/dL (1.6-2.3); Non-African American GFR(CKD) >90 (>60 ml/min/1.73 sqM); Phosphorus 2.1 mg/dL (2.5-4.5); Potassium 3.9 mmol/L (3.5-5.1); Sodium 136 mmol/L (137-145)
[2024-01-29 09:15] LABS: Glucose,Whole Blood 88 mg/dL (70-110)
[2024-01-29] MEDS: LORazepam 1 MG/0.5 ML VIAL IV PRN (10:03)
[2024-01-29] MEDS ORDERED: Phosphorus Replacement Protoco 1 EACH MISC MISCELLANE PRN (10:04)
--- NOTE | 2024-01-29 10:04 | P.PN ---
Subjective Patient is seen in follow-up for acute kidney injury. Renal function improved. Patient is n.p.o. but feels hungry and is requesting food. No pain. Vital signs are stable. General: No acute distress. HEENT: Head exam is unremarkable. LUNGS: No audible rhonchi or wheezes. HEART: Rate and Rhythm are regular. ABDOMEN: Nontender. EXTREMITITES: No edema. Objective - Vital Signs Vital signs: Vital Signs Temp 98.9 F 01/29/24 08:00 Pulse 85 01/29/24 08:00 Resp 20 01/29/24 08:00 BP 118/64 01/29/24 08:00 Pulse Ox 95 01/29/24 08:00 FiO2 Intake & Output 01/28/24 01/29/24 01/29/24 18:59 06:59 18:59 Output Total 2500 Balance -2500 Output: Urine 2500 Other: Voiding Method Indwelling Catheter Indwelling Catheter Indwelling Catheter # Voids 1 - Labs CBC & Chem 7: 01/29/24 06:18 01/29/24 06:18 Labs: Abnormal Lab Results - Last 24 Hours (Table) 01/29/24 01/29/24 Range/Units 06:18 06:18 RBC 3.45 L (4.30-5.90) m/uL Hgb 10.8 L (13.0-17.5) gm/dL Hct 33.2 L (39.0-53.0) % Plt Count 137 L (150-450) k/uL Sodium 136 L (137-145) mmol/L Chloride 111 H (98-107) mmol/L Carbon Dioxide 21 L (22-30) mmol/L BUN 21 H (9-20) mg/dL Calcium 7.7 L (8.4-10.2) mg/dL Phosphorus 2.1 L (2.5-4.5) mg/dL Microbiology - Last 24 Hours (Table) 01/27/24 12:21 Blood Culture - Preliminary Blood 01/27/24 12:28 Blood Culture - Preliminary Blood Assessment and Plan Plan: Assessment: 1. Acute kidney injury secondary to vasomotor nephropathy secondary to hypovolemia and hypotension. Creatinine peaked at 2.46 this admission and is 0.84 today. No hydronephrosis noted on CAT scan. 2. Diverticulitis with perforation. Surgery following. 3. Metabolic acidosis secondary to acute kidney injury and IV fluids. Improved with bicarb drip. 4. Diabetes mellitus. 5. Coronary artery disease with cardiac stents. 6. Hypomagnesemia from poor intake. Replaced. Better. 7. Hypophosphatemia from poor intake. Plan: Stop bicarb drip. Start normal saline at 50 cc an hour. Replace phosphorus. Add oral bicarb. Follow-up a.m. cortisol level. PICC line placement for TPN pending. Continue to hold all antihypertensives. Avoid nephrotoxins. Continue to monitor renal function and urine output.
[2024-01-29] MEDS: HYDROmorphone 1 MG/ML 1 ML SYRINGE IVP PRN (11:23)
[2024-01-29] MEDS: SODIUM PHOSPHATE 15 MMOL in DEXTROSE 5% IN WATER 250 ML IVPB ONE (11:24)
[2024-01-29] MEDS: SODIUM CHLORIDE 0.9% 1,000 ML IV SCH (11:51)
--- NOTE | 2024-01-29 11:57 | P.PN ---
Progress Note - Text Progress Note Date: 01/29/24 Patient seen this morning. Patient is resting comfortably in bed. Patient still has complaint of chronic low back pain. Patient is now reporting that he does have surgery planned for 02/04/2024 with his spine surgeon at [place]. Continue with current pain management regimen. Our services will be signing off at this time, no further recommendations from an orthopedic standpoint. Patient is to follow-up with his surgeon at [facility] on discharge.
[2024-01-29] MEDS: SODIUM BICARBONATE TAB 650 MG TAB PO SCH (12:02)
[2024-01-29 12:06] LABS: Glucose,Whole Blood 98 mg/dL (70-110)
[2024-01-29] MEDS: DEXTROSE 5% IN WATER 1,000 ML with SODIUM BICARB (1 MEQ/ML) 100 ML IV SCH (13:43)
--- NOTE | 2024-01-29 14:55 | P.PN ---
Subjective Progress Note Date: 01/29/24 * 53-year-old gentleman past medical history significant for chronic back pain, history of hypertension, history of diabetes mellitus presented to the emergency department with complaints of acute onset of abdominal pain on top of chronic back pain. Patient states symptom onset was 24 hours prior to presentation. Patient said he has a progressive decrease in appetite and had vomited a few times before coming in. Patient said he had 4 small stools however abdominal pain persisted. Patient was sent as a transfer from an outside hospital due to concern for diverticulitis with perforation. * General surgery team was contacted, patient was made n.p.o. * consultation obtained from general surgery and infectious disease * 01/27/24: Patient seen and evaluated at bedside, serum chemistry reviewed, creatinine elevated at 2.46, to be hypotensive, patient dose of lisinopril discontinued, follow-up lactate levels ordered, since lactate levels was elevated, patient given fluid bolus, patient to be transferred to [facility] will follow-up on vitals and blood pressure patient decompensates he will need to go to medical ICU, nursing staff instructed to call a team if patient becomes symptomatic. Patient did complain of abdominal discomfort, surgery team following and aware they had requested a CT abdomen pelvis that will be completed as well>> patient reluctant to get surgery done, patient states she does not trust doctors. Patient daughter at bedside as well care plan explained. Patient and other family members accompanied him in the room as well patient was explained if he decompensates he would need surgery, apparently per chart review patient has only not been forefront with the nursing staff regarding abdominal pain * 01/28/24: Patient seen and evaluated bedside, blood work reviewed WBC 3.6 hemoglobin 10.8 platelet count of 122, serum chemistry sodium 134 potassium 4.5, carbon dioxide 16 BUN 37 creatinine 1.35, albumin of 1.9. CT abdomen and pelvis completed 01/26 reviewed by surgery team as minna findings of diverticulitis multiple foci of free intraperitoneal air concerning for perforated diverticulitis, small amount of fluid in the pelvis noted as well. Does have degenerative changes of spine 01/29/2024 Patient is evaluated in follow up today. Having worsening abdominal pain to the right upper quadrant. Patients echocardiogram suboptimal due to patient positioning and uncooperation of patient does reveal normal LV systolic function. Patient also refused his PICC line earlier today which has been recommended for Parenteral nutrition. Patient has been strict NPO pending surgical intervention today for the bowel perforation and abscess. Patient remains on IV antibiotics with IV cefepime and IV metronidazole. Continues on Bicarb gtt at decreased rate down to 50 mls/hr. Review of Systems Constitutional: Denied any fatigue denied any fever. Cardio vascular: denied any chest pain, palpitations Gastrointestinal: denied any nausea, vomiting, diarrhea Pulmonary: Denied any shortness of breath cough Neurologic denied any new focal deficits All inpatient medications were reviewed and appropriate changes in these medications as dictated in the interval history and assessment and plan. PHYSICAL EXAMINATION: GENERAL: The patient is alert and oriented x3, not in any acute distress. Well developed, well nourished. HEENT: Pupils are round and equally reacting to light. EOMI. No scleral icterus. No conjunctival pallor. Normocephalic, atraumatic. No pharyngeal erythema. No thyromegaly. CARDIOVASCULAR: S1 and S2 present. No murmurs, rubs, or gallops. PULMONARY: Chest is clear to auscultation, no wheezing or crackles. ABDOMEN: Soft, RUQ abdominal pain, nondistended, normoactive bowel sounds. No palpable organomegaly. MUSCULOSKELETAL: No joint swelling or deformity. EXTREMITIES: No cyanosis, clubbing, or pedal edema. NEUROLOGICAL: Gross neurological examination did not reveal any focal deficits. SKIN: No rashes. Assessment and Plan Acute diverticulitis with perforation and localized abscess pending surgical intervention exploratory laporotomy Sepsis secondary to intra-abdominal infection continues on IV antibiotics per ID Acute kidney injury prerenal due to hypotension and dehydration. Metabolic acidosis being treated with bicarb gtt, improving. Diabetes mellitus type 2 continues on sliding scale insulin every 4 hours as patient is NPO. Chronic back pain with degenerative disease of lumbar spine, was evaluated by orthopedics recommending conservative management at this time with pain medication, ice. History of hypertension currently normotensive chronic pain syndrome Hx of coronary artery disease with prior PCI. Hypophasphatemia replaced per protocol and repeat labs in place GI prophylaxis protonix DVT prophylaxis Subcu heparin Full Code The impression and plan of care has been dictated by Nurse Emelia Salinas as directed. Dr. Peggy MD I have performed a history and physical examination and medical decision making of this patient, discussed the same with the dictator, and agree with the dictat ors assessment and plan as written, documented as a scribe. Based on total visit time, I have performed more than 50% of this visit. Objective - Vital Signs Vital signs: Vital Signs Temp 97.5 F L 01/29/24 11:42 Pulse 87 01/29/24 11:42 Resp 20 01/29/24 11:42 BP 130/81 01/29/24 11:42 Pulse Ox 95 01/29/24 11:42 FiO2 Intake & Output 01/28/24 01/29/24 01/29/24 18:59 06:59 18:59 Output Total 2500 675 Balance -2500 -675 Weight 90.718 kg Output: Urine 2500 675 Other: Voiding Method Indwelling Catheter Indwelling Catheter Indwelling Catheter # Voids 1 - Labs CBC & Chem 7: 01/29/24 06:18 01/29/24 06:18 Labs: Abnormal Lab Results - Last 24 Hours (Table) 01/29/24 01/29/24 Range/Units 06:18 06:18 RBC 3.45 L (4.30-5.90) m/uL Hgb 10.8 L (13.0-17.5) gm/dL Hct 33.2 L (39.0-53.0) % Plt Count 137 L (150-450) k/uL Sodium 136 L (137-145) mmol/L Chloride 111 H (98-107) mmol/L Carbon Dioxide 21 L (22-30) mmol/L BUN 21 H (9-20) mg/dL Calcium 7.7 L (8.4-10.2) mg/dL Phosphorus 2.1 L (2.5-4.5) mg/dL Microbiology - Last 24 Hours (Table) 01/27/24 12:21 Blood Culture - Preliminary Blood 01/27/24 12:28 Blood Culture - Preliminary Blood Assessment and Plan Time with Patient: Greater than 30
--- NOTE | 2024-01-29 15:18 | P.PN ---
Subjective Progress Note Date: 01/29/24 CHIEF COMPLAINT: Diverticulitis HISTORY OF PRESENT ILLNESS: The patient is a 53-year-old male transfer from outside facility for perforated diverticulitis with abscess. Patient complaining of abdominal pain today. He is rating his pain between a 7 and 9. Patient reports that he downplayed his pain yesterday. Patient is easily agitated and frustrated. He is requesting to eat. Patient has been educated that about the diverticulitis perforation and that he needs to be NPO. Patient is requesting something for his anxiety. Patient's blood pressure has shown improvement. Creatinine has shown improvement. He is afebrile. BP 130/81 WBC is 4.7 Hgb 10.8 platelets 137 creatinine normalized at 0.84 PHYSICAL EXAM: VITAL SIGNS: Reviewed GENERAL: Well-developed in no acute distress. HEENT: No sclera icterus. Extraocular movements grossly intact. Moist buccal mucosa. Head is atraumatic, normocephalic. Hears conversational speech. No nasal drainage. NECK: Supple without lymphadenopathy. CHEST: Non-labored respirations and equal bilateral excursions. CARDIOVASCULAR: Palpable 2+ radial pulses. ABDOMEN: Soft. Nondistended. Tenderness with palpation right side of abdomen MUSCULOSKELETAL: No clubbing or cyanosis. NEUROLOGIC: No focal or lateralizing signs. Cranial nerves II through XII grossly intact. PSYCH: Appropriate affect. Alert and oriented to person, place and time. SKIN: Well perfused. Good skin turgor. ASSESSMENT: 1. Perforated diverticulitis with sepsis on admission 2. Acute renal failure due to severe dehydration 3. Chronic back pain with posterior thoracic lumbar fusion 4. Hypotension, multifactorial including sepsis, dehydration PLAN: -Keep patient n.p.o. except for ice chips and popsicles -Continue IV antibiotics -Continue pain management -Patient scheduled for PICC line today and to start TPN for nutrition support -Patient and at bedside. All their questions answered to the best my ability. Patient has been educated that he needs to remain n.p.o. for perforated diverticulitis. -Case was discussed with Dr. Kincaid. Surgeon is aware of patient's concerns, pain and physical exam findings -Discussed with medicine service regarding adding IV Ativan for anxiety -Orthospine service recommendations noted the patient will follow-up with his surgeon out of [place] regarding his back pain and has planned surgery for 02/04/2024 Physician Treasury Associate note has been reviewed by physician. Signing provider agrees with the documented findings, assessment, and plan of care. Objective - Vital Signs Vital signs: Vital Signs Temp 97.5 F L 01/29/24 11:42 Pulse 87 01/29/24 11:42 Resp 20 01/29/24 11:42 BP 130/81 01/29/24 11:42 Pulse Ox 95 01/29/24 11:42 FiO2 Intake & Output 01/28/24 01/29/24 01/29/24 18:59 06:59 18:59 Output Total 2500 Balance -2500 Output: Urine 2500 Other: Voiding Method Indwelling Catheter Indwelling Catheter Indwelling Catheter # Voids 1 - Labs CBC & Chem 7: 01/29/24 06:18 01/29/24 06:18 Labs: Abnormal Lab Results - Last 24 Hours (Table) 01/29/24 01/29/24 Range/Units 06:18 06:18 RBC 3.45 L (4.30-5.90) m/uL Hgb 10.8 L (13.0-17.5) gm/dL Hct 33.2 L (39.0-53.0) % Plt Count 137 L (150-450) k/uL Sodium 136 L (137-145) mmol/L Chloride 111 H (98-107) mmol/L Carbon Dioxide 21 L (22-30) mmol/L BUN 21 H (9-20) mg/dL Calcium 7.7 L (8.4-10.2) mg/dL Phosphorus 2.1 L (2.5-4.5) mg/dL Microbiology - Last 24 Hours (Table) 01/27/24 12:21 Blood Culture - Preliminary Blood 01/27/24 12:28 Blood Culture - Preliminary Blood
[2024-01-29 16:35] LABS: Glucose,Whole Blood 91 mg/dL (70-110)
[2024-01-29 19:52] LABS: Glucose,Whole Blood 89 mg/dL (70-110)
[2024-01-29 23:52] LABS: Glucose,Whole Blood 106 mg/dL (70-110)
[2024-01-30 03:52] LABS: Glucose,Whole Blood 94 mg/dL (70-110)
[2024-01-30 08:03] LABS: Glucose,Whole Blood 98 mg/dL (70-110)
[2024-01-30 11:23] LABS: Basophils % (A) 0 %; Eosinophils % (A) 0 %; HCT 34.4 % (39.0-53.0); HGB 11.1 gm/dL (13.0-17.5); Lymphocytes # (A) 0.3 k/uL (1.0-4.8); Lymphocytes % (A) 5 %; MCH 30.8 pg (25.0-35.0); MCHC 32.1 g/dL (31.0-37.0); MCV 95.9 fL (80.0-100.0); Mean Platelet Volume 9.8; Monocytes # (A) 0.4 k/uL (0-1.0); Monocytes % (A) 6 %; Neutrophils # (A) 6.6 k/uL (1.3-7.7); Neutrophils % (A) 88 %; Platelet Count 142 k/uL (150-450); RBC 3.59 m/uL (4.30-5.90); RDW 13.7 % (11.5-15.5); WBC 7.5 k/uL (3.8-10.6)
--- NOTE | 2024-01-30 11:49 | P.PN ---
Subjective Patient is seen in follow-up for acute kidney injury. Renal function improved. Patient is frustrated as he wants to eat. Vital signs are stable. General: No acute distress. HEENT: Head exam is unremarkable. LUNGS: No audible rhonchi or wheezes. HEART: Rate and Rhythm are regular. ABDOMEN: Nontender. EXTREMITITES: No edema. Objective - Vital Signs Vital signs: Vital Signs Temp 98.2 F 01/30/24 11:36 Pulse 84 01/30/24 11:36 Resp 18 01/30/24 11:36 BP 143/75 01/30/24 11:36 Pulse Ox 94 L 01/30/24 11:36 FiO2 Intake & Output 01/29/24 01/30/24 01/30/24 18:59 06:59 18:59 Intake Total 1070 350 Output Total 675 1350 Balance 395 -1000 Weight 90.718 kg Intake: Intake, IV Titration 1070 350 Amount Cefepime 2 gm In Sodium 200 100 Chloride 0.9% 100 ml @ 25 mls/hr IVPB Q8HR GREG[facility]IO Rx# :[id number] Dextrose 5% in Water 1, 300 000 ml @ 50 mls/hr IV . Q22H G[facility]IO with Sodium Bicarb (1 Meq/ml) 100 ml Rx#:[id number] Sodium Chloride 0.9% 1, 120 150 000 ml @ 50 mls/hr IV . Q20H GREG[facility]IO Rx#:[id number] Sodium Phosphate 15 mmol 250 In Dextrose 5% in Water 250 ml @ 127.5 mls/hr IVPB ONCE ONE Rx#: [id number] metroNIDAZOLE-NS PMX 500 200 100 mg In Saline 1 100ml.bag @ 100 mls/hr IVPB Q6HR GREG[facility]IO Rx#:[id number] Output: Urine 675 1350 Other: Voiding Method Indwelling Catheter Indwelling Catheter Indwelling Catheter - Labs CBC & Chem 7: 01/30/24 09:19 01/29/24 06:18 Labs: Abnormal Lab Results - Last 24 Hours (Table) 01/30/24 Range/Units 09:19 RBC 3.59 L (4.30-5.90) m/uL Hgb 11.1 L (13.0-17.5) gm/dL Hct 34.4 L (39.0-53.0) % Plt Count 142 L (150-450) k/uL Lymphocytes # 0.3 L (1.0-4.8) k/uL Microbiology - Last 24 Hours (Table) 01/27/24 12:21 Blood Culture - Preliminary Blood 01/27/24 12:28 Blood Culture - Preliminary Blood Assessment and Plan Plan: Assessment: 1. Acute kidney injury secondary to vasomotor nephropathy secondary to hypovolemia and hypotension. Creatinine peaked at 2.46 this admission - 0.84 yesterday. No hydronephrosis noted on CAT scan. 2. Diverticulitis with perforation. Surgery following. Surgery scheduled for tomorrow. 3. Metabolic acidosis secondary to acute kidney injury and IV fluids. Improved with bicarb drip. 4. Diabetes mellitus. 5. Coronary artery disease with cardiac stents. 6. Hypomagnesemia from poor intake. Replaced. Better. 7. Hypophosphatemia from poor intake. Replaced. Plan: Maintain gentle IV hydration. Cortisol level not low. Avoid nephrotoxins. Continue to monitor renal function and urine output. Morning labs pending.
[2024-01-30 11:59] LABS: Glucose,Whole Blood 92 mg/dL (70-110)
[2024-01-30 12:09] LABS: ALT 8 U/L (4-49); AST 23 U/L (17-59); African American GFR (CKD) >90 (>60 ml/min/1.73 sqM); Albumin 2.1 g/dL (3.5-5.0); Alkaline Phosphatase 101 U/L (38-126); Anion Gap 8 mmol/L; Blood Urea Nitrogen 13 mg/dL (9-20); Calcium 7.5 mg/dL (8.4-10.2); Carbon Dioxide 20 mmol/L (22-30); Chloride 108 mmol/L (98-107); Glucose 84 mg/dL (74-99); Magnesium 1.6 mg/dL (1.6-2.3); Non-African American GFR(CKD) >90 (>60 ml/min/1.73 sqM); Phosphorus 2.1 mg/dL (2.5-4.5); Potassium 3.3 mmol/L (3.5-5.1); Sodium 136 mmol/L (137-145); Total Bilirubin 0.4 mg/dL (0.2-1.3); Total Protein 4.4 g/dL (6.3-8.2)
[2024-01-30] MEDS ORDERED: LORazepam 1 MG/0.5 ML VIAL IV PRN (12:22)
[2024-01-30] MEDS: SODIUM CHLORIDE 0.9% 1,000 ML IV SCH (12:54)
[2024-01-30] MEDS ORDERED: LORazepam 1 MG/0.5 ML VIAL IV SCH (14:00)
--- NOTE | 2024-01-30 14:11 | P.PN ---
Subjective Progress Note Date: 01/30/24 CHIEF COMPLAINT: Diverticulitis HISTORY OF PRESENT ILLNESS: The patient is a 53-year-old male transfer from outside facility for perforated diverticulitis. Patient refused PICC line placement yesterday. He is still frustrated that he cannot eat. He does report some improvement in his abdominal pain. He denies any nausea or vomiting. Afebrile. WBC 7.5 hgb 11.1 plt 142 K 3.3 PHYSICAL EXAM: VITAL SIGNS: Reviewed GENERAL: Well-developed in no acute distress. HEENT: No sclera icterus. Extraocular movements grossly intact. Moist buccal mucosa. Head is atraumatic, normocephalic. Hears conversational speech. No nasal drainage. NECK: Supple without lymphadenopathy. CHEST: Non-labored respirations and equal bilateral excursions. CARDIOVASCULAR: Palpable 2+ radial pulses. ABDOMEN: Soft. Nondistended. Tenderness with palpation right side of abdomen MUSCULOSKELETAL: No clubbing or cyanosis. NEUROLOGIC: No focal or lateralizing signs. Cranial nerves II through XII grossly intact. PSYCH: Appropriate affect. Alert and oriented to person, place and time. SKIN: Well perfused. Good skin turgor. ASSESSMENT: 1. Perforated diverticulitis with sepsis on admission 2. Acute renal failure due to severe dehydration 3. Chronic back pain with posterior thoracic lumbar fusion 4. Hypotension, multifactorial including sepsis, dehydration 5. Hypokalemia 6. Severe protein calorie malnutrition PLAN: -Patient is tentatively boarded for exploratory laparotomy with colostomy plac ement tomorrow, 01/31/[address] Kincaid -Patient is rescheduled for PICC line placement tomorrow. Patient needs PICC line for TPN and IV antibiotics -Keep patient n.p.o. except for ice chips and popsicles -Continue IV antibiotics -Continue pain management -Patient scheduled for PICC line today and to start TPN for nutrition support -Orthospine service recommendations noted the patient will follow-up with his surgeon out of [place] regarding his back pain and has planned surgery for 02/04/2024 -Replace potassium Physician Poultry Hatchery Supervisor note has been reviewed by physician. Signing provider agrees with the documented findings, assessment, and plan of care. Objective - Vital Signs Vital signs: Vital Signs Temp 98.2 F 01/30/24 11:36 Pulse 84 01/30/24 11:36 Resp 18 01/30/24 11:36 BP 143/75 01/30/24 11:36 Pulse Ox 94 L 01/30/24 11:36 FiO2 Intake & Output 01/29/24 01/30/24 01/30/24 18:59 06:59 18:59 Intake Total 1070 350 Output Total 675 1350 Balance 395 -1000 Weight 90.718 kg Intake: Intake, IV Titration 1070 350 Amount Cefepime 2 gm In Sodium 200 100 Chloride 0.9% 100 ml @ 25 mls/hr IVPB Q8HR [facility] Rx# :[id number] Dextrose 5% in Water 1, 300 000 ml @ 50 mls/hr IV . Q22H [facility]IO with Sodium Bicarb (1 Meq/ml) 100 ml Rx#:[id number] Sodium Chloride 0.9% 1, 120 150 000 ml @ 50 mls/hr IV . Q20H [facility]REG[facility]IO Rx#:[id number] Sodium Phosphate 15 mmol 250 In Dextrose 5% in Water 250 ml @ 127.5 mls/hr IVPB ONCE ONE Rx#: [id number] metroNIDAZOLE-NS PMX 500 200 100 mg In Saline 1 100ml.bag @ 100 mls/hr IVPB Q6HR GREG[facility]IO Rx#:[id number] Output: Urine 675 1350 Other: Voiding Method Indwelling Catheter Indwelling Catheter Indwelling Catheter - Labs CBC & Chem 7: 01/30/24 09:19 01/30/24 09:19 Labs: Abnormal Lab Results - Last 24 Hours (Table) 01/30/24 01/30/24 Range/Units 09:19 09:19 RBC 3.59 L (4.30-5.90) m/uL Hgb 11.1 L (13.0-17.5) gm/dL Hct 34.4 L (39.0-53.0) % Plt Count 142 L (150-450) k/uL Lymphocytes # 0.3 L (1.0-4.8) k/uL Sodium 136 L (137-145) mmol/L Potassium 3.3 L (3.5-5.1) mmol/L Chloride 108 H (98-107) mmol/L Carbon Dioxide 20 L (22-30) mmol/L Creatinine 0.59 L (0.66-1.25) mg/dL Calcium 7.5 L (8.4-10.2) mg/dL Phosphorus 2.1 L (2.5-4.5) mg/dL Total Protein 4.4 L (6.3-8.2) g/dL Albumin 2.1 L (3.5-5.0) g/dL Microbiology - Last 24 Hours (Table) 01/27/24 12:21 Blood Culture - Preliminary Blood 01/27/24 12:28 Blood Culture - Preliminary Blood
[2024-01-30] MEDS: ALPRAZolam 1 MG TAB PO SCH (14:40)
[2024-01-30] MEDS: POTASSIUM CHLORIDE 10 MEQ in WATER FOR INJECTION 1 100ML.BAG IVPB SCH (14:41)
[2024-01-30] MEDS ORDERED: Phosphorus Replacement Protoco 1 EACH MISC MISCELLANE PRN (14:50)
--- NOTE | 2024-01-30 15:04 | P.PN ---
Subjective Progress Note Date: 01/30/24 * 53-year-old gentleman past medical history significant for chronic back pain, history of hypertension, history of diabetes mellitus presented to the emergency department with complaints of acute onset of abdominal pain on top of chronic back pain. Patient states symptom onset was 24 hours prior to presentation. Patient said he has a progressive decrease in appetite and had vomited a few times before coming in. Patient said he had 4 small stools however abdominal pain persisted. Patient was sent as a transfer from an outside hospital due to concern for diverticulitis with perforation. * General surgery team was contacted, patient was made n.p.o. * consultation obtained from general surgery and infectious disease * 01/27/24: Patient seen and evaluated at bedside, serum chemistry reviewed, creatinine elevated at 2.46, to be hypotensive, patient dose of lisinopril discontinued, follow-up lactate levels ordered, since lactate levels was elevated, patient given fluid bolus, patient to be transferred to [facility] will follow-up on vitals and blood pressure patient decompensates he will need to go to medical ICU, nursing staff instructed to call a team if patient becomes symptomatic. Patient did complain of abdominal discomfort, surgery team following and aware they had requested a CT abdomen pelvis that will be completed as well>> patient reluctant to get surgery done, patient states she does not trust doctors. Patient daughter at bedside as well care plan explained. Patient and other family members accompanied him in the room as well patient was explained if he decompensates he would need surgery, apparently per chart review patient has only not been forefront with the nursing staff regarding abdominal pain * 01/28/24: Patient seen and evaluated bedside, blood work reviewed WBC 3.6 hemoglobin 10.8 platelet count of 122, serum chemistry sodium 134 potassium 4.5, carbon dioxide 16 BUN 37 creatinine 1.35, albumin of 1.9. CT abdomen and pelvis completed 01/26 reviewed by surgery team as minna findings of diverticulitis multiple foci of free intraperitoneal air concerning for perforated diverticulitis, small amount of fluid in the pelvis noted as well. Does have degenerative changes of spine 01/29/2024 Patient is evaluated in follow up today. Having worsening abdominal pain to the right upper quadrant. Patients echocardiogram suboptimal due to patient positioning and uncooperation of patient does reveal normal LV systolic function. Patient also refused his PICC line earlier today which has been recommended for Parenteral nutrition. Patient has been strict NPO pending surgical intervention today for the bowel perforation and abscess. Patient remains on IV antibiotics with IV cefepime and IV metronidazole. Continues on Bicarb gtt at decreased rate down to 50 mls/hr. 01/30/2024 Bed today resting in bed. Patient is agitated and tearful this morning was requesting Xanax. Patient feels that nobody is being truthful with him and is confused about the findings of his orthopedic examination. Patient states that he "has a vertebrae that is missing". Continue to report right upper quadrant abdominal discomfort. His blood work today reveals a white blood cell count of 7.5, hemoglobin 11.1, sodium 136, potassium 3.3, BUN 14, creatinine 0.59. His magnesium level is 1.6. Review of Systems Constitutional: Denied any fatigue denied any fever. Cardio vascular: denied any chest pain, palpitations Gastrointestinal: denied any nausea, vomiting, diarrhea, reports abdominal discomfort Pulmonary: Denied any shortness of breath cough Neurologic denied any new focal deficits All inpatient medications were reviewed and appropriate changes in these medications as dictated in the interval history and assessment and plan. PHYSICAL EXAMINATION: GENERAL: The patient is alert and oriented x3, not in any acute distress. Well developed, well nourished. HEENT: Pupils are round and equally reacting to light. EOMI. No scleral icterus. No conjunctival pallor. Normocephalic, atraumatic. No pharyngeal erythema. No thyromegaly. CARDIOVASCULAR: S1 and S2 present. No murmurs, rubs, or gallops. PULMONARY: Chest is clear to auscultation, no wheezing or crackles. ABDOMEN: Soft, RUQ abdominal pain, nondistended, normoactive bowel sounds. No palpable organomegaly. MUSCULOSKELETAL: No joint swelling or deformity. EXTREMITIES: No cyanosis, clubbing, or pedal edema. NEUROLOGICAL: Gross neurological examination did not reveal any focal deficits. SKIN: No rashes. Assessment and Plan Acute diverticulitis with perforation and localized abscess pending surgical intervention exploratory laporotomy Sepsis secondary to intra-abdominal infection continues on IV antibiotics per ID Acute kidney injury prerenal due to hypotension and dehydration. Proving Metabolic acidosis treated with bicarb drip which has been discontinued at this time hypophosphatemia will be supplemented and repeat labs in the morning Diabetes mellitus type 2 continues on sliding scale insulin every 4 hours as patient is NPO. Chronic back pain with degenerative disease of lumbar spine, was evaluated by orthopedics recommending conservative management at this time with pain medic ation, ice. History of hypertension currently normotensive chronic pain syndrome Hx of coronary artery disease with prior PCI. GI prophylaxis protonix DVT prophylaxis Subcu heparin Full Code The impression and plan of care has been dictated by Janell Franco, Nurse Practitioner as directed. Dr. Peggy MD I have performed a history and physical examination and medical decision making of this patient, discussed the same with the dictator, and agree with the dictators assessment and plan as written, documented as a scribe. Based on total visit time, I have performed more than 50% of this visit. Objective - Vital Signs Vital signs: Vital Signs Temp 98.2 F 01/30/24 11:36 Pulse 84 01/30/24 11:36 Resp 18 01/30/24 11:36 BP 143/75 01/30/24 11:36 Pulse Ox 94 L 01/30/24 11:36 FiO2 Intake & Output 01/29/24 01/30/24 01/30/24 18:59 06:59 18:59 Intake Total 1070 350 Output Total 675 1350 Balance 395 -1000 Weight 90.718 kg Intake: Intake, IV Titration 1070 350 Amount Cefepime 2 gm In Sodium 200 100 Chloride 0.9% 100 ml @ 25 mls/hr IVPB Q8HR [facility] Rx# :[id number] Dextrose 5% in Water 1, 300 000 ml @ 50 mls/hr IV . Q22H [facility]IO with Sodium Bicarb (1 Meq/ml) 100 ml Rx#:[id number] Sodium Chloride 0.9% 1, 120 150 000 ml @ 50 mls/hr IV . Q20H [facility] Rx#:[id number] Sodium Phosphate 15 mmol 250 In Dextrose 5% in Water 250 ml @ 127.5 mls/hr IVPB ONCE ONE Rx#: [id number] metroNIDAZOLE-NS PMX 500 200 100 mg In Saline 1 100ml.bag @ 100 mls/hr IVPB Q6HR [facility]IO Rx#:[id number] Output: Urine 675 1350 Other: Voiding Method Indwelling Catheter Indwelling Catheter Indwelling Catheter - Labs CBC & Chem 7: 01/30/24 09:19 01/30/24 09:19 Labs: Abnormal Lab Results - Last 24 Hours (Table) 01/30/24 01/30/24 Range/Units 09:19 09:19 RBC 3.59 L (4.30-5.90) m/uL Hgb 11.1 L (13.0-17.5) gm/dL Hct 34.4 L (39.0-53.0) % Plt Count 142 L (150-450) k/uL Lymphocytes # 0.3 L (1.0-4.8) k/uL Sodium 136 L (137-145) mmol/L Potassium 3.3 L (3.5-5.1) mmol/L Chloride 108 H (98-107) mmol/L Carbon Dioxide 20 L (22-30) mmol/L Creatinine 0.59 L (0.66-1.25) mg/dL Calcium 7.5 L (8.4-10.2) mg/dL Phosphorus 2.1 L (2.5-4.5) mg/dL Total Protein 4.4 L (6.3-8.2) g/dL Albumin 2.1 L (3.5-5.0) g/dL Microbiology - Last 24 Hours (Table) 01/27/24 12:21 Blood Culture - Preliminary Blood 01/27/24 12:28 Blood Culture - Preliminary Blood Assessment and Plan Time with Patient: Less than 30
[2024-01-30 15:56] LABS: Glucose,Whole Blood 81 mg/dL (70-110)
[2024-01-30] MEDS: SODIUM PHOSPHATE 15 MMOL in DEXTROSE 5% IN WATER 250 ML IVPB ONE (17:56)
[2024-01-30] MEDS: MAGNESIUM SULFATE-D5W PMX 1 GM in DEXTROSE/WATER 1 100ML.BAG IVPB SCH (18:02)
[2024-01-30 20:01] LABS: Glucose,Whole Blood 99 mg/dL (70-110)
[2024-01-31 00:05] LABS: Glucose,Whole Blood 93 mg/dL (70-110)
[2024-01-31 04:47] LABS: Glucose,Whole Blood 88 mg/dL (70-110)
[2024-01-31] MEDS: LIDOCAINE 1% INJ 10MG/ML (20 ML MDV) SQ ONE (07:38)
[2024-01-31 08:17] LABS: Glucose,Whole Blood 80 mg/dL (70-110)
--- NOTE | 2024-01-31 08:26 | IR ---
EXAMINATION TYPE: IR cvc insert >=5 years DATE OF EXAM: 01/31/2024 COMPARISON: NONE HISTORY: Fluoroscopy time. Fluoroscopy was provided to the referring clinician.
--- NOTE | 2024-01-31 08:50 | P.OP ---
Date of Procedure: 01/31/24 Preoperative Diagnosis: Need for long-term IV antibiotic as well as TPN therapy. Postoperative Diagnosis: Same. Procedure(s) Performed: Ultrasound and fluoroscopically guided placement of a dual-lumen PICC via the left cephalic vein approach. Central venogram. Anesthesia: local Blindstitch Lining Feller #1: Ari Marie Estimated Blood Loss (ml): 10 IV fluids (ml): 0 Urine output (ml): 0 Pathology: none sent Condition: stable Disposition: no change Description of Procedure: Patient was brought to the cardiac catheterization suite. The left upper extremity sterilely prepped and draped in usual manner. Utilizing ultrasound the cephalic vein was identified. 1% Xylocaine was utilized for local anesthesia of the tissues overlying the cephalic vein at the mid humeral level. Through this anesthetized area with the aid of ultrasound a micropuncture needle was utilized to cannulate the vein. Once cannulated soft tipped guidewire was advanced. The needle was withdrawn and a micropuncture sheath and dilator were advanced. Guidewire was then advanced toward the central system. Difficulty was experienced passing the wire into the central system. Eventually a venogram was performed which demonstrated tortuous anatomy. It was necessary to obtain a 0.018 catheter to help guide the wire into the central venous system. Once this was completed it was measured to 42 cm. The catheter was then cut to 42 cm. The catheter was withdrawn and the PICC was advanced over the guidewire into the central venous system. Guidewire was withdrawn and the sheath peeled away. Blood was easily aspirated through both ports and both ports were then flushed with heparinized saline solution. The catheter was secured to the skin with nylon suture. Appropriate dressings were applied. Patient tolerated the procedure well. Total fluoroscopy time: 2.7 minutes. Total contrast volume: 5 mL.
[2024-01-31 10:40] LABS: HCT 32.8 % (39.0-53.0); HGB 10.7 gm/dL (13.0-17.5); MCH 31.1 pg (25.0-35.0); MCHC 32.7 g/dL (31.0-37.0); Mean Platelet Volume 9.8; Platelet Count 136 k/uL (150-450); RBC 3.45 m/uL (4.30-5.90); RDW 13.8 % (11.5-15.5); WBC 11.6 k/uL (3.8-10.6)
[2024-01-31 10:57] LABS: ALT 7 U/L (4-49); AST 20 U/L (17-59); African American GFR (CKD) >90 (>60 ml/min/1.73 sqM); Albumin 1.9 g/dL (3.5-5.0); Alkaline Phosphatase 84 U/L (38-126); Anion Gap 5 mmol/L; Blood Urea Nitrogen 12 mg/dL (9-20); Calcium 7.2 mg/dL (8.4-10.2); Carbon Dioxide 21 mmol/L (22-30); Chloride 108 mmol/L (98-107); Glucose 80 mg/dL (74-99); Magnesium 1.8 mg/dL (1.6-2.3); Non-African American GFR(CKD) >90 (>60 ml/min/1.73 sqM); Phosphorus 2.5 mg/dL (2.5-4.5); Potassium 3.6 mmol/L (3.5-5.1); Sodium 134 mmol/L (137-145); Total Bilirubin 0.3 mg/dL (0.2-1.3); Total Protein 4.3 g/dL (6.3-8.2)
--- NOTE | 2024-01-31 11:20 | P.PN ---
Subjective Patient is seen in follow-up for acute kidney injury. Renal function improved. Received PICC line this morning. Scheduled for surgery this afternoon. Vital signs are stable. General: No acute distress. HEENT: Head exam is unremarkable. LUNGS: No audible rhonchi or wheezes. HEART: Rate and Rhythm are regular. ABDOMEN: Nontender. EXTREMITITES: No edema. Objective - Vital Signs Vital signs: Vital Signs Temp 98.4 F 01/31/24 03:51 Pulse 75 01/31/24 03:51 Resp 18 01/31/24 03:51 BP 115/76 01/31/24 03:51 Pulse Ox 92 L 01/31/24 03:51 FiO2 Intake & Output 01/30/24 01/31/24 01/31/24 18:59 06:59 18:59 Intake Total 100 310 Output Total 1550 Balance 100 -1240 Weight 112 kg Intake: Oral 100 310 Output: Urine 1550 Other: Voiding Method Indwelling Catheter Indwelling Catheter # Voids 0 # Bowel Movements 0 - Labs CBC & Chem 7: 01/31/24 10:04 01/31/24 10:04 Labs: Abnormal Lab Results - Last 24 Hours (Table) 01/30/24 01/30/24 01/31/24 Range/Units 09:19 09:19 10:04 WBC (3.8-10.6) k/uL RBC 3.59 L (4.30-5.90) m/uL Hgb 11.1 L (13.0-17.5) gm/dL Hct 34.4 L (39.0-53.0) % Plt Count 142 L (150-450) k/uL Lymphocytes # 0.3 L (1.0-4.8) k/uL Sodium 136 L 134 L (137-145) mmol/L Potassium 3.3 L (3.5-5.1) mmol/L Chloride 108 H 108 H (98-107) mmol/L Carbon Dioxide 20 L 21 L (22-30) mmol/L Creatinine 0.59 L 0.56 L (0.66-1.25) mg/dL Calcium 7.5 L 7.2 L (8.4-10.2) mg/dL Phosphorus 2.1 L (2.5-4.5) mg/dL Total Protein 4.4 L 4.3 L (6.3-8.2) g/dL Albumin 2.1 L 1.9 L (3.5-5.0) g/dL 01/31/24 Range/Units 10:04 WBC 11.6 H (3.8-10.6) k/uL RBC 3.45 L (4.30-5.90) m/uL Hgb 10.7 L (13.0-17.5) gm/dL Hct 32.8 L (39.0-53.0) % Plt Count 136 L (150-450) k/uL Lymphocytes # (1.0-4.8) k/uL Sodium (137-145) mmol/L Potassium (3.5-5.1) mmol/L Chloride (98-107) mmol/L Carbon Dioxide (22-30) mmol/L Creatinine (0.66-1.25) mg/dL Calcium (8.4-10.2) mg/dL Phosphorus (2.5-4.5) mg/dL Total Protein (6.3-8.2) g/dL Albumin (3.5-5.0) g/dL Microbiology - Last 24 Hours (Table) 01/27/24 12:21 Blood Culture - Preliminary Blood 01/27/24 12:28 Blood Culture - Preliminary Blood Assessment and Plan Plan: Assessment: 1. Acute kidney injury secondary to vasomotor nephropathy secondary to hypovolemia and hypotension. Creatinine peaked at 2.46 this admission -0.56 today. No hydronephrosis noted on CAT scan. 2. Diverticulitis with perforation. Surgery following. Surgery scheduled for today. 3. Metabolic acidosis secondary to acute kidney injury and IV fluids. Improved with bicarb drip. 4. Diabetes mellitus. 5. Coronary artery disease with cardiac stents. 6. Hypomagnesemia from poor intake. Replaced. Better. 7. Hypophosphatemia from poor intake. Replaced. Better. Plan: Maintain gentle IV hydration. Cortisol level not low. Avoid nephrotoxins. Continue to monitor renal function and urine output.
[2024-01-31 12:07] LABS: Glucose,Whole Blood 80 mg/dL (70-110)
--- NOTE | 2024-01-31 13:22 | P.PN ---
Subjective Progress Note Date: 01/31/24 CHIEF COMPLAINT: Diverticulitis HISTORY OF PRESENT ILLNESS: The patient is a 53-year-old male transfer from outside facility for perforated diverticulitis with abscess. His is at bedside. Patient reports he has been much useful today. He still has soreness and pain along the right abdomen. He does report moderate improvement since admission. He is making moderate urine. ROS: No reports of nausea and vomiting. No fevers or chills. No new chest pain. No productive sputum PHYSICAL EXAM: VITAL SIGNS: Reviewed CONSTITUTIONAL: Well developed and in no acute distress. EYES: Conjuctivae without sclera icterus. Extraocular movements grossly intact. HEAD, EARS, NOSE, THROAT: Moist buccal mucosa. Head is atraumatic, normocephalic. Hears conversational speech. No nasal drainage. RESPIRATORY: Non-labored respirations and equal bilateral excursions. CARDIOVASCULAR: Palpable 2+ radial pulses. ABDOMEN: Increased warmth and tenderness along the right flank and side. No diffuse peritonitis. MUSCULOSKELETAL: No gross deformity of the lower extremities noted. No clubbing. No cyanosis. SKIN: Good skin turgor. Well perfused. NEUROLOGIC: Cranial nerves II through XII grossly intact. No focal or lateralizing signs. PSYCH: Appropriate affect. Alert and oriented to person, place and time. CLINICAL LABS: Reviewed. WBC elevated 11.6, leukocytosis. Creatinine normal. ASSESSMENT: 1. Perforated diverticulitis with sepsis on admission 2. Acute renal failure due to severe dehydration, now resolved 3. Chronic back pain with posterior thoracic lumbar fusion 4. Hypotension, multifactorial including sepsis, dehydration, now resolved PLAN: 1. Extensive discussion was performed with the patient and family at bedside including new clinical findings of right flank and right-sided erythema. As patient has not clinically resolved, exploratory laparotomy with colostomy creation was described. 2. Patient did get PICC line for which TPN and antibiotics will continue after surgery. 3. Continue Michel catheter for surgical intervention. 4. All questions were addressed 5. Patient continues n.p.o. status except ice chips and popsicles. 6. Patient and family are now agreeable to proceed with surgery. Objective - Vital Signs Vital signs: Vital Signs Temp 98.4 F 01/31/24 03:51 Pulse 75 01/31/24 03:51 Resp 18 01/31/24 03:51 BP 115/76 01/31/24 03:51 Pulse Ox 92 L 01/31/24 03:51 FiO2 Intake & Output 01/30/24 01/31/24 01/31/24 18:59 06:59 18:59 Intake Total 100 310 Output Total 1550 Balance 100 -1240 Weight 112 kg Intake: Oral 100 310 Output: Urine 1550 Other: Voiding Method Indwelling Catheter Indwelling Catheter # Voids 0 # Bowel Movements 0 - Labs CBC & Chem 7: 01/31/24 10:04 01/31/24 10:04 Labs: Abnormal Lab Results - Last 24 Hours (Table) 01/30/24 01/30/24 Range/Units 09:19 09:19 RBC 3.59 L (4.30-5.90) m/uL Hgb 11.1 L (13.0-17.5) gm/dL Hct 34.4 L (39.0-53.0) % Plt Count 142 L (150-450) k/uL Lymphocytes # 0.3 L (1.0-4.8) k/uL Sodium 136 L (137-145) mmol/L Potassium 3.3 L (3.5-5.1) mmol/L Chloride 108 H (98-107) mmol/L Carbon Dioxide 20 L (22-30) mmol/L Creatinine 0.59 L (0.66-1.25) mg/dL Calcium 7.5 L (8.4-10.2) mg/dL Phosphorus 2.1 L (2.5-4.5) mg/dL Total Protein 4.4 L (6.3-8.2) g/dL Albumin 2.1 L (3.5-5.0) g/dL Microbiology - Last 24 Hours (Table) 01/27/24 12:21 Blood Culture - Preliminary Blood 01/27/24 12:28 Blood Culture - Preliminary Blood
--- NOTE | 2024-01-31 15:17 | P.PN ---
Subjective Progress Note Date: 01/29/24 Principal diagnosis: Reason for follow-up is perforated diverticulitis with sepsis on admission Patient is a 53-year-old male with past medical history significant for diabetes mellitus hypertension anxiety bipolar depression and brain surgery patient presented to hospital with abdominal pain and this patient has been diagnosed with the ruptured diverticulitis and sepsis for the patient was transferred to [facility]. On today's evaluation that is 01/29/2024, Patient is afebrile patient is currently on room air and denies having any shortness of breath, the patient denies any chest pain or cough, the patient denies any nausea vomiting still complaining of abdominal pain. Controlled with pain medication Patient white count is 4.7, creatinine 0.84 Objective - Vital Signs Vital signs: Vital Signs Temp 97.5 F L 01/29/24 11:42 Pulse 87 01/29/24 11:42 Resp 20 01/29/24 11:42 BP 130/81 01/29/24 11:42 Pulse Ox 95 01/29/24 11:42 FiO2 Intake & Output 01/28/24 01/29/24 01/29/24 18:59 06:59 18:59 Output Total 2500 675 Balance -2500 -675 Weight 90.718 kg Output: Urine 2500 675 Other: Voiding Method Indwelling Catheter Indwelling Catheter Indwelling Catheter # Voids 1 - Exam GENERAL DESCRIPTION: Middle-age male lying in bed in no distress RESPIRATORY SYSTEM: Unlabored breathing , decreased breath sounds at bases HEART: S1 S2 regular rate and rhythm , ABDOMEN: Soft , mild tenderness EXTREMITIES: No edema feet - Labs CBC & Chem 7: 01/31/24 10:04 01/31/24 10:04 Labs: Abnormal Lab Results - Last 24 Hours (Table) 01/29/24 01/29/24 Range/Units 06:18 06:18 RBC 3.45 L (4.30-5.90) m/uL Hgb 10.8 L (13.0-17.5) gm/dL Hct 33.2 L (39.0-53.0) % Plt Count 137 L (150-450) k/uL Sodium 136 L (137-145) mmol/L Chloride 111 H (98-107) mmol/L Carbon Dioxide 21 L (22-30) mmol/L BUN 21 H (9-20) mg/dL Calcium 7.7 L (8.4-10.2) mg/dL Phosphorus 2.1 L (2.5-4.5) mg/dL Microbiology - Last 24 Hours (Table) 01/27/24 12:21 Blood Culture - Preliminary Blood 01/27/24 12:28 Blood Culture - Preliminary Blood Assessment and Plan (1) Penicillin allergy Current Visit: Yes Status: Acute Code(s): Z88.0 - ALLERGY STATUS TO PENICILLIN SNOMED Code(s): 63157391 (2) Perforation of sigmoid colon due to diverticulitis Current Visit: Yes Status: Acute Code(s): K57.20 - DVTRCLI OF LG INT W PERF ORATION AND ABSCESS W/O BLEEDING SNOMED Code(s): 6555455068323286 (3) Peritonitis Current Visit: Yes Status: Acute Code(s): K65.9 - PERITONITIS, UNSPECIFIED SNOMED Code(s): 79595705 Plan: 1patient presented hospital with sepsis in this patient did have fever tachycardia source is acute ruptured appendicitis and peritonitis and will need to cover for enteric gram-negative to be the likely pathogen less likely gram- positive kike 2-penicillin allergy that will limit the number of antibiotics safe to use 3-patient repeat CT abdominal pelvis did shows diverticulitis with multiple foci of air and contained leak 4-patient to continue with cefepime and Flagyl along with n.p.o. status and monitor clinical course closely Dictation was produced using [employer] dictation software. please excuse any grammatical, word or spelling errors. Time with Patient: Less than 30
--- NOTE | 2024-01-31 15:18 | P.PN ---
Subjective Progress Note Date: 01/30/24 Principal diagnosis: Reason for follow-up is perforated diverticulitis with sepsis on admission Patient is a 53-year-old male with past medical history significant for diabetes mellitus hypertension anxiety bipolar depression and brain surgery patient presented to hospital with abdominal pain and this patient has been diagnosed with the ruptured diverticulitis and sepsis for the patient was transferred to [facility]. On today's evaluation that is 01/30/2024, patient has been afebrile, patient is breathing comfortably and is currently on room air, patient denies having any significant cough no chest pain shortness of breath, patient denies vomiting abdominal pain has slightly decreased in intensity, no new symptoms Patient white count is 7.5 creatinine 0.59 Objective - Vital Signs Vital signs: Vital Signs Temp 98.2 F 01/30/24 11:36 Pulse 84 01/30/24 11:36 Resp 18 01/30/24 11:36 BP 143/75 01/30/24 11:36 Pulse Ox 94 L 01/30/24 11:36 FiO2 Intake & Output 01/29/24 01/30/24 01/30/24 18:59 06:59 18:59 Intake Total 1070 350 Output Total 675 1350 Balance 395 -1000 Weight 90.718 kg Intake: Intake, IV Titration 1070 350 Amount Cefepime 2 gm In Sodium 200 100 Chloride 0.9% 100 ml @ 25 mls/hr IVPB Q8HR GREGORIO Rx# :[id number] Dextrose 5% in Water 1, 300 000 ml @ 50 mls/hr IV . Q22H GREGORIO with Sodium Bicarb (1 Meq/ml) 100 ml Rx#:[id number] Sodium Chloride 0.9% 1, 120 150 000 ml @ 50 mls/hr IV . Q20H GREGORIO Rx#:[id number] Sodium Phosphate 15 mmol 250 In Dextrose 5% in Water 250 ml @ 127.5 mls/hr IVPB ONCE ONE Rx#: [id number] PMX 500 200 100 mg In Saline 1 100ml.bag @ 100 mls/hr IVPB Q6HR GREGORIO Rx#:[id number] Output: Urine 675 1350 Other: Voiding Method Indwelling Catheter Indwelling Catheter Indwelling Catheter - Exam GENERAL DESCRIPTION: Middle-age male lying in bed in no distress RESPIRATORY SYSTEM: Unlabored breathing , decreased breath sounds at bases HEART: S1 S2 regular rate and rhythm , ABDOMEN: Soft , mild tenderness EXTREMITIES: No edema feet - Labs CBC & Chem 7: 01/31/24 10:04 01/31/24 10:04 Labs: Abnormal Lab Results - Last 24 Hours (Table) 01/30/24 01/30/24 Range/Units 09:19 09:19 RBC 3.59 L (4.30-5.90) m/uL Hgb 11.1 L (13.0-17.5) gm/dL Hct 34.4 L (39.0-53.0) % Plt Count 142 L (150-450) k/uL Lymphocytes # 0.3 L (1.0-4.8) k/uL Sodium 136 L (137-145) mmol/L Potassium 3.3 L (3.5-5.1) mmol/L Chloride 108 H (98-107) mmol/L Carbon Dioxide 20 L (22-30) mmol/L Creatinine 0.59 L (0.66-1.25) mg/dL Calcium 7.5 L (8.4-10.2) mg/dL Phosphorus 2.1 L (2.5-4.5) mg/dL Total Protein 4.4 L (6.3-8.2) g/dL Albumin 2.1 L (3.5-5.0) g/dL Microbiology - Last 24 Hours (Table) 01/27/24 12:21 Blood Culture - Preliminary Blood 01/27/24 12:28 Blood Culture - Preliminary Blood Assessment and Plan (1) Penicillin allergy Current Visit: Yes Status: Acute Code(s): Z88.0 - ALLERGY STATUS TO PENICILLIN SNOMED Code(s): 71404191 (2) Perforation of sigmoid colon due to diverticulitis Current Visit: Yes Status: Acute Code(s): K57.20 - DVTRCLI OF LG INT W PERFORATION AND ABSCESS W/O BLEEDING SNOMED Code(s): 3990668379052200 (3) Peritonitis Current Visit: Yes Status: Acute Code(s): K65.9 - PERITONITIS, UNSPECIFIED SNOMED Code(s): 30301788 Plan: 1patient presented hospital with sepsis in this patient did have fever tachycardia source is acute ruptured appendicitis and peritonitis and will need to cover for enteric gram-negative to be the likely pathogen less likely gram- positive kike 2-penicillin allergy that will limit the number of antibiotics safe to use 3-patient repeat CT abdominal pelvis did shows diverticulitis with multiple foci of air and contained leak 4-patient is afebrile white count has been normal, patient to continue cefepime and Flagyl along with n.p.o. status, multiple question concern answered Dictation was produced using [employer] dictation software. please excuse any grammatical, word or spelling errors. Time with Patient: Less than 30
--- NOTE | 2024-01-31 15:19 | P.PN ---
Subjective Progress Note Date: 01/31/24 Principal diagnosis: Reason for follow-up is perforated diverticulitis with sepsis on admission Patient is a 53-year-old male with past medical history significant for diabetes mellitus hypertension anxiety bipolar depression and brain surgery patient presented to hospital with abdominal pain and this patient has been diagnosed with the ruptured diverticulitis and sepsis for the patient was transferred to [facility]. On today's evaluation that is 01/31/2024,the patient denies any fever or any chills, patient is breathing comfortably on room air, the patient denies chest pain shortness of breath and no significant cough, patient seem to be complaining of more right-sided abdominal pain nausea but no vomiting no diarrhea Patient white count slightly up to 11.6 today, creatinine 0.56 blood culture has been negative Objective - Vital Signs Vital signs: Vital Signs Temp 98.4 F 01/31/24 03:51 Pulse 75 01/31/24 03:51 Resp 18 01/31/24 03:51 BP 115/76 01/31/24 03:51 Pulse Ox 92 L 01/31/24 03:51 FiO2 Intake & Output 01/30/24 01/31/24 01/31/24 18:59 06:59 18:59 Intake Total 100 310 Output Total 1550 Balance 100 -1240 Weight 112 kg 112 kg Intake: Oral 100 310 Output: Urine 1550 Other: Voiding Method Indwelling Catheter Indwelling Catheter # Voids 0 # Bowel Movements 0 - Exam GENERAL DESCRIPTION: Middle-age male lying in bed in no distress RESPIRATORY SYSTEM: Unlabored breathing , decreased breath sounds at bases HEART: S1 S2 regular rate and rhythm , ABDOMEN: Soft , mild tenderness EXTREMITIES: No edema feet - Labs CBC & Chem 7: 01/31/24 10:04 01/31/24 10:04 Labs: Abnormal Lab Results - Last 24 Hours (Table) 01/31/24 01/31/24 Range/Units 10:04 10:04 WBC 11.6 H (3.8-10.6) k/uL RBC 3.45 L (4.30-5.90) m/uL Hgb 10.7 L (13.0-17.5) gm/dL Hct 32.8 L (39.0-53.0) % Plt Count 136 L (150-450) k/uL Sodium 134 L (137-145) mmol/L Chloride 108 H (98-107) mmol/L Carbon Dioxide 21 L (22-30) mmol/L Creatinine 0.56 L (0.66-1.25) mg/dL Calcium 7.2 L (8.4-10.2) mg/dL Total Protein 4.3 L (6.3-8.2) g/dL Albumin 1.9 L (3.5-5.0) g/dL Microbiology - Last 24 Hours (Table) 01/27/24 12:21 Blood Culture - Preliminary Blood 01/27/24 12:28 Blood Culture - Preliminary Blood Assessment and Plan (1) Penicillin allergy Current Visit: Yes Status: Acute Code(s): Z88.0 - ALLERGY STATUS TO PENICILLIN SNOMED Code(s): 81211749 (2) Perforation of sigmoid colon due to diverticulitis Current Visit: Yes Status: Acute Code(s): K57.20 - DVTRCLI OF LG INT W PERFORATION AND ABSCESS W/O BLEEDING SNOMED Code(s): 9790918315003308 (3) Peritonitis Current Visit: Yes Status: Acute Code(s): K65.9 - PERITONITIS, UNSPECIFIED SNOMED Code(s): 72818203 Plan: 1patient presented hospital with sepsis in this patient did have fever tachycardia source is acute ruptured appendicitis and peritonitis and will need to cover for enteric gram-negative to be the likely pathogen less likely gram- positive kike 2-penicillin allergy that will limit the number of antibiotics safe to use 3-patient repeat CT abdominal pelvis did shows diverticulitis with multiple foci of air and contained leak 4-patient currently covered with cefepime and Flagyl, plan is for surgical exploration this afternoon multiple question concern answered Dictation was produced using [employer] dictation software. please excuse any grammatical, word or spelling errors. Time with Patient: Less than 30
[2024-01-31] MEDS: IV FLUID CONTINUATION 1,000 ML IV ONE (16:36)
[2024-01-31] MEDS: HEPARIN SODIUM,PORCINE 5,000 UNIT/ML 1 ML VIAL SQ ONE (16:53)
[2024-01-31] MEDS: ONDANSETRON 4 MG/2 ML VIAL IVP ONE (17:02)
[2024-01-31] MEDS: fentaNYL (PF) 50 MCG/ML 2 ML AMP IVP ONE (17:02)
[2024-01-31] MEDS: DEXAMETHASONE SOD PHOSPHATE 4 MG/ML 1 ML VIAL IVP ONE (17:02)
[2024-01-31 17:10] LABS: Glucose,Whole Blood 69 mg/dL (70-110)
[2024-01-31] MEDS ORDERED: KETOROLAC 30 MG/ML 1 ML VIAL ONE (17:24)
[2024-01-31] MEDS ORDERED: MIDAZOLAM 2 MG/2 ML VIAL ONE (17:24)
[2024-01-31] MEDS ORDERED: HYDROmorphone (PF) 1 MG/ML ONE (17:24)
[2024-01-31] MEDS ORDERED: PROPOFOL 10 MG/ML 20 ML VIAL IV ONE (17:24)
[2024-01-31] MEDS ORDERED: ROCURONIUM 10 MG/ML (5 ML VIAL) IV ONE (17:24)
[2024-01-31] MEDS ORDERED: SUCCINYLCHOLINE CHLORIDE 200 MG/10 ML VIAL IV ONE (17:24)
[2024-01-31] MEDS ORDERED: PHENYLEPHRINE 10 MG/ML VIAL ONE (17:24)
[2024-01-31] MEDS ORDERED: fentaNYL (PF) 50 MCG/ML 2 ML AMP ONE (17:24)
[2024-01-31] MEDS ORDERED: NEOSTIGMINE 1 MG/ML 10 ML VIAL ONE (17:24)
[2024-01-31] MEDS ORDERED: LIDOCAINE 1% INJ 10MG/ML (20 ML MDV) ONE (17:24)
[2024-01-31] MEDS ORDERED: GLYCOPYRROLATE 0.2 MG/ML 2 ML VIAL ONE (17:24)
[2024-01-31] MEDS: LACTATED RINGERS 1,000 ML IV ONE ×5 (17:29→20:36)
[2024-01-31 21:09] LABS: Glucose,Whole Blood 108 mg/dL (70-110)
[2024-01-31] MEDS: HYDROmorphone 0.5 MG/0.5 ML SYRINGE IVP ONE (21:40)
--- NOTE | 2024-01-31 21:40 | P.OP ---
Date of Procedure: 01/31/24 Description of Procedure: SURGEON: GREGG FAUSTIN MD PREOPERATIVE DIAGNOSES: 1. Perforated complicated sigmoid diverticulitis with pelvic abscess 2. Sepsis present on admission 3. Obesity due to excess calories, BMI 34.4 4. Chronic back pain 5. Diabetes type 2 [id number] 6. Hypertensive heart disease 7. Hyperlipidemia 8. Depressive disorder 9. Generalized anxiety disorder 10. Bipolar disorder 11. Recent acute renal failure, resolved POSTOPERATIVE DIAGNOSES: 1. Perforated complicated sigmoid diverticulitis with pelvic abscess 2. Sepsis present on admission due to perforated diverticulitis 3. Obesity due to excess calories, BMI 34.4 4. Chronic back pain 5. Diabetes type 2 [id number] 6. Hypertensive heart disease 7. Hyperlipidemia 8. Depressive disorder 9. Generalized anxiety disorder 10. Bipolar disorder OPERATION: 1. Exploratory laparotomy with sigmoid resection for perforated mid sigmoid colon 2. Descending colostomy. 3. Defunctionalized rectal stump. 4. Preeti's procedure for perforated sigmoid colon 5. Peritoneal lavage over 6 liters 6. Placement of universal PREVENA wound VAC system 7. Drainage of intra-abdominal abscess 1600 cc, intraperitoneal abscess due to diverticular disease 8. Open lysis of adhesions, extensive ANESTHESIA: General ESTIMATED BLOOD LOSS: 150mL. SPECIMENS REMOVED: 1. Sigmoid colon 2. Aerobic and anaerobic culture diverticular abscess COMPLICATIONS: None. Condition: stable Disposition: floor Operative Findings: 1. Over 1.6 L ascites with peritoneal abscess evacuated from abdomen 2. Firm solid stool evacuated from pelvis 6 x 5 cm 3. Large perforation mid sigmoid colon 1.5 centimeters along left pelvis INDICATIONS: The patient is a 53-year-old male who presented acutely to the hospital with abdominal pain and perforated diverticulitis. Patient did not want surgical intervention upon presentation and opted for conservative management. Repeat CT scan imaging was performed with increase of intra- abdominal abscess. Patient reported improved abdominal pain however persistent along the right side. Patient did present with sepsis on admission including acute renal failure. Cardiac risk assessment including resolved acute renal failure was achieved. Surgical intervention with exploratory laparotomy, colostomy creation was described in detail. Informed consent was obtained after discussion with the patient and his family. DESCRIPTION: Patient was brought to the operating room. He was on scheduled IV antibiotics. The patient was placed in supine position whereby general induction was performed. Abdomen had been prepped and draped in the standard sterile fashion. Michel catheter was already present due to acute renal failure. Ioban draping was also placed to minimize any contamination to the skin. Next, using #10 blade, the abdomen was entered along the midline whereby an incision was made just above the umbilicus down to the pubis. Immediately into the abdomen turbid ascitic fluid was aspirated from the abdominal cavity 1.6 L. Anibal stool was found within the deep pelvis. Aerobic anaerobic cultures were obtained. Immediately the abdomen was irrigated with 3 L normal saline to minimize contamination. Next, Bookwalter retractor was placed. The small bowel and right colon were packed of the upper abdomen. The descending colon and sigmoid colon was mobilized along the medial and lateral attachments. The sigmoid colon was densely adherent to the left pelvis. A large firm stool ball 6 x 5 cm was evacuated from the abdomen. Carefully the sigmoid colon was identified and mobilized. The sigmoid colon was moderately redundant with perforation along the intermesenteric border of the mid sigmoid colon. Lysis of adhesions was performed using digital blunt dissection including LigaSure for over 1 hour. The sigmoid colon was mobilized along the mesentery where a window was made along the mesentery and the colon was divided using Ethicon powered stapler 60 mm black load such that the descending colon was prepared for maturation of a colostomy. The colon was divided proximally and distally using Contour blue stapler below the perforation. The specimen was passed off. Hemostasis was checked with electro Bovie cautery including Enseal. The abdomen was copiously irrigated with another 3 L of normal saline solution. The rectal stump was tagged using 2-0 Prolene. Next, attention was brought to the delivering and creating of the descending colostomy. A point along the abdominal wall and rectus muscle was selected for the colostomy. Tio was used to elevate the skin and Bovie cautery was taken across in tangential manner to create the skin defect of approximately quarter-size. The fat of the skin was mobilized using a small rich. The rectus muscle was identified and scored with a cruciate scoring of electro- Bovie cautery. Next, using a muscle-splitting technique with a hemostat, the peritoneum was entered. The peritoneum was widened such that 2 fingerbreadths could easily pass for delivering and evaginating the descending portion of the colon through the skin. The midline incision was closed using double-stranded 0 PDS. Next, the subcutaneous tissue was copiously irrigated with normal saline and hydrogen peroxide. For the rest of the incision, stainless steel skin digna were applied. The midline incision was covered using universal PREVENA wound VAC and attention was brought to maturation of the colostomy. The staple edge was divided and removed. Next quadrant sutures at 12 o'clock, 3 o'clock, 6 o'clock, and 9 o'clock position was made using serosa, mucosal and dermal bites using 2-0 Vicryl. Interrupted 3-0 Vicryl was placed in between all quadrants sutures to completely mature the ostomy. Hemostasis was checked. A Coloplast was then placed. At the end of the procedure, needle, sponge, and instrument count had been verified correct by surgical garment fitter. The patient's family was updated on level of care.
--- NOTE | 2024-01-31 21:56 | P.PN ---
Subjective Progress Note Date: 01/31/24 * 53-year-old gentleman past medical history significant for chronic back pain, history of hypertension, history of diabetes mellitus presented to the emergency department with complaints of acute onset of abdominal pain on top of chronic back pain. Patient states symptom onset was 24 hours prior to presentation. Patient said he has a progressive decrease in appetite and had vomited a few times before coming in. Patient said he had 4 small stools however abdominal pain persisted. Patient was sent as a transfer from an outside hospital due to concern for diverticulitis with perforation. * General surgery team was contacted, patient was made n.p.o. * consultation obtained from general surgery and infectious disease * 01/27/24: Patient seen and evaluated at bedside, serum chemistry reviewed, creatinine elevated at 2.46, to be hypotensive, patient dose of lisinopril discontinued, follow-up lactate levels ordered, since lactate levels was elevated, patient given fluid bolus, patient to be transferred to [facility] will follow-up on vitals and blood pressure patient decompensates he will need to go to medical ICU, nursing staff instructed to call a team if patient becomes symptomatic. Patient did complain of abdominal discomfort, surgery team following and aware they had requested a CT abdomen pelvis that will be completed as well>> patient reluctant to get surgery done, patient states she does not trust doctors. Patient daughter at bedside as well care plan explained. Patient and other family members accompanied him in the room as well patient was explained if he decompensates he would need surgery, apparently per chart review patient has only not been forefront with the nursing staff regarding abdominal pain * 01/28/24: Patient seen and evaluated bedside, blood work reviewed WBC 3.6 hemoglobin 10.8 platelet count of 122, serum chemistry sodium 134 potassium 4.5, carbon dioxide 16 BUN 37 creatinine 1.35, albumin of 1.9. CT abdomen and pelvis completed 01/26 reviewed by surgery team as minna findings of diverticulitis multiple foci of free intraperitoneal air concerning for perforated diverticulitis, small amount of fluid in the pelvis noted as well. Does have degenerative changes of spine 01/29/2024 Patient is evaluated in follow up today. Having worsening abdominal pain to the right upper quadrant. Patients echocardiogram suboptimal due to patient positioning and uncooperation of patient does reveal normal LV systolic function. Patient also refused his PICC line earlier today which has been recommended for Parenteral nutrition. Patient has been strict NPO pending surgical intervention today for the bowel perforation and abscess. Patient remains on IV antibiotics with IV cefepime and IV metronidazole. Continues on Bicarb gtt at decreased rate down to 50 mls/hr. 01/30/2024 Bed today resting in bed. Patient is agitated and tearful this morning was requesting Xanax. Patient feels that nobody is being truthful with him and is confused about the findings of his orthopedic examination. Patient states that he "has a vertebrae that is missing". Continue to report right upper quadrant abdominal discomfort. His blood work today reveals a white blood cell count of 7.5, hemoglobin 11.1, sodium 136, potassium 3.3, BUN 14, creatinine 0.59. His magnesium level is 1.6. 01/31/2024 Patient evaluated today resting in bed. Less anxious than yesterday has been continued on his oral xanax scheduled with improved mood. Patient continues to report lower back pain. Blood culture is negative so far. Remains on IV cefepime. Blood work today reveals white blood cell count 11.6, hgb 10.7, sodium 134. BUN 12, creatinine 0.56. Scheduled to undergo exploratory laporotomy with colostomy today. Review of Systems Constitutional: Denied any fatigue denied any fever. Cardio vascular: denied any chest pain, palpitations Gastrointestinal: denied any nausea, vomiting, diarrhea, reports abdominal discomfort Pulmonary: Denied any shortness of breath cough Neurologic denied any new focal deficits All inpatient medications were reviewed and appropriate changes in these medications as dictated in the interval history and assessment and plan. PHYSICAL EXAMINATION: GENERAL: The patient is alert and oriented x3, not in any acute distress. Well developed, well nourished. HEENT: Pupils are round and equally reacting to light. EOMI. No scleral icterus. No conjunctival pallor. Normocephalic, atraumatic. No pharyngeal erythema. No thyromegaly. CARDIOVASCULAR: S1 and S2 present. No murmurs, rubs, or gallops. PULMONARY: Chest is clear to auscultation, no wheezing or crackles. ABDOMEN: Soft, RUQ abdominal pain, nondistended, normoactive bowel sounds. No palpable organomegaly. MUSCULOSKELETAL: No joint swelling or deformity. EXTREMITIES: No cyanosis, clubbing, or pedal edema. NEUROLOGICAL: Gross neurological examination did not reveal any focal deficits. SKIN: No rashes. Assessment and Plan Acute diverticulitis with perforation and localized abscess pending surgical intervention exploratory laporotomy Sepsis secondary to intra-abdominal infection continues on IV antibiotics per ID Acute kidney injury prerenal due to hypotension and dehydration. Proving Metabolic acidosis treated with bicarb drip which has been discontinued at this time hypophosphatemia will be supplemented and repeat labs in the morning Diabetes mellitus type 2 continues on sliding scale insulin every 4 hours as patient is NPO. Chronic back pain with degenerative disease of lumbar spine, was evaluated by orthopedics recommending conservative management at this time with pain medication, ice. History of hypertension currently normotensive chronic pain syndrome Hx of coronary artery disease with prior PCI. Anxiety maintained on xanax scheduled which has been resumed and patients mood has improved. GI prophylaxis protonix DVT prophylaxis Subcu heparin Full Code The impression and plan of care has been dictated by Janell Franco, Nurse Practitioner as directed. Dr. Peggy MD I have performed a history and physical examination and medical decision making of this patient, discussed the same with the dictator, and agree with the dictators assessment and plan as written, documented as a scribe. Based on total visit time, I have performed more than 50% of this visit. Objective - Vital Signs Vital signs: Vital Signs Temp 99.0 F 01/31/24 21:01 Pulse 95 01/31/24 21:48 Resp 18 01/31/24 21:48 BP 144/75 01/31/24 21:48 Pulse Ox 92 L 01/31/24 21:48 FiO2 Intake & Output 01/31/24 01/31/24 02/01/24 06:59 18:59 06:59 Intake Total 310 3500 400 Output Total 1550 450 450 Balance -1240 3050 -50 Weight 112 kg 112 kg Intake: IV 3500 400 Oral 310 0 Output: Urine 1550 450 300 Estimated Blood Loss 150 Other: Voiding Method Indwelling Catheter Indwelling Catheter # Voids 0 # Bowel Movements 0 - Labs CBC & Chem 7: 01/31/24 10:04 01/31/24 10:04 Labs: Abnormal Lab Results - Last 24 Hours (Table) 01/31/24 01/31/24 01/31/24 Range/Units 10:04 10:04 17:08 WBC 11.6 H (3.8-10.6) k/uL RBC 3.45 L (4.30-5.90) m/uL Hgb 10.7 L (13.0-17.5) gm/dL Hct 32.8 L (39.0-53.0) % Plt Count 136 L (150-450) k/uL Sodium 134 L (137-145) mmol/L Chloride 108 H (98-107) mmol/L Carbon Dioxide 21 L (22-30) mmol/L Creatinine 0.56 L (0.66-1.25) mg/dL POC Glucose (mg/dL) 69 L (70-110) mg/dL Calcium 7.2 L (8.4-10.2) mg/dL Total Protein 4.3 L (6.3-8.2) g/dL Albumin 1.9 L (3.5-5.0) g/dL Microbiology - Last 24 Hours (Table) 01/27/24 12:21 Blood Culture - Preliminary Blood 01/27/24 12:28 Blood Culture - Preliminary Blood Assessment and Plan Time with Patient: Less than 30
[2024-01-31 22:17] LABS: Glucose,Whole Blood 113 mg/dL (70-110)
[2024-01-31] MEDS: MVI, ADULT NO.4 WITH VIT K 10 ML, TRACE (CONC-1ML/DOSE) 1 ML in AMINO ACID 5%-D20W+LYTE... IV SCH (22:31)
[2024-01-31] MEDS: FAT EMULSION 20% 250 ML IV SCH (22:31)
[2024-01-31] MEDS: SODIUM CHLORIDE 0.9% 2,000 ML IV ONE (23:14)
[2024-02-01 00:17] LABS: Glucose,Whole Blood 138 mg/dL (70-110)
[2024-02-01 04:27] LABS: Glucose,Whole Blood 153 mg/dL (70-110)
[2024-02-01 08:04] LABS: Glucose,Whole Blood 123 mg/dL (70-110)
[2024-02-01] MEDS: ALVIMOPAN 12 MG CAPSULE PO SCH (09:23)
[2024-02-01 09:39] LABS: Basophils # (A) 0.1 k/uL (0-0.2); Basophils % (A) 0 %; Eosinophils % (A) 0 %; HCT 40.4 % (39.0-53.0); HGB 12.9 gm/dL (13.0-17.5); Lymphocytes # (A) 0.7 k/uL (1.0-4.8); Lymphocytes % (A) 3 %; MCH 30.8 pg (25.0-35.0); MCHC 31.9 g/dL (31.0-37.0); MCV 96.5 fL (80.0-100.0); Mean Platelet Volume 10.3; Monocytes # (A) 1.5 k/uL (0-1.0); Monocytes % (A) 6 %; Neutrophils # (A) 21.1 k/uL (1.3-7.7); Neutrophils % (A) 89 %; Platelet Count 226 k/uL (150-450); RBC 4.19 m/uL (4.30-5.90); RDW 14.1 % (11.5-15.5); WBC 23.7 k/uL (3.8-10.6)
[2024-02-01 10:08] LABS: African American GFR (CKD) >90 (>60 ml/min/1.73 sqM); Anion Gap 3 mmol/L; Blood Urea Nitrogen 17 mg/dL (9-20); Calcium 6.9 mg/dL (8.4-10.2); Carbon Dioxide 23 mmol/L (22-30); Chloride 109 mmol/L (98-107); Glucose 129 mg/dL (74-99); Magnesium 1.7 mg/dL (1.6-2.3); Non-African American GFR(CKD) >90 (>60 ml/min/1.73 sqM); Potassium 3.9 mmol/L (3.5-5.1); Sodium 135 mmol/L (137-145)
--- NOTE | 2024-02-01 10:57 | P.PN ---
Subjective Patient is seen in follow-up for acute kidney injury. Renal function at baseline. Receiving TPN. Received PICC line this morning. Underwent expl oratory laparotomy with sigmoid resection due to perforated mid sigmoid colon yesterday. Vital signs are stable. General: No acute distress. HEENT: Head exam is unremarkable. LUNGS: No audible rhonchi or wheezes. HEART: Rate and Rhythm are regular. ABDOMEN: Generalized tenderness present. EXTREMITITES: No edema. Objective - Vital Signs Vital signs: Vital Signs Temp 97.7 F 01/31/24 22:00 Pulse 81 02/01/24 04:00 Resp 16 02/01/24 04:00 BP 120/83 02/01/24 04:00 Pulse Ox 95 02/01/24 09:27 FiO2 Intake & Output 01/31/24 02/01/24 02/01/24 18:59 06:59 18:59 Intake Total 3500 400 Output Total 450 450 Balance 3050 -50 Weight 112 kg Intake: IV 3500 400 Oral 0 Output: Urine 450 300 Estimated Blood Loss 150 Other: Voiding Method Indwelling Catheter Indwelling Catheter # Voids 0 # Bowel Movements 0 - Labs CBC & Chem 7: 02/01/24 08:53 02/01/24 08:53 Labs: Abnormal Lab Results - Last 24 Hours (Table) 01/31/24 01/31/24 01/31/24 Range/Units 10:04 17:08 22:14 WBC (3.8-10.6) k/uL RBC (4.30-5.90) m/uL Hgb (13.0-17.5) gm/dL Neutrophils # (1.3-7.7) k/uL Lymphocytes # (1.0-4.8) k/uL Monocytes # (0-1.0) k/uL Sodium 134 L (137-145) mmol/L Chloride 108 H (98-107) mmol/L Carbon Dioxide 21 L (22-30) mmol/L Creatinine 0.56 L (0.66-1.25) mg/dL Glucose (74-99) mg/dL POC Glucose (mg/dL) 69 L 113 H (70-110) mg/dL Calcium 7.2 L (8.4-10.2) mg/dL Total Protein 4.3 L (6.3-8.2) g/dL Albumin 1.9 L (3.5-5.0) g/dL 02/01/24 02/01/24 02/01/24 Range/Units 00:15 04:18 08:02 WBC (3.8-10.6) k/uL RBC (4.30-5.90) m/uL Hgb (13.0-17.5) gm/dL Neutrophils # (1.3-7.7) k/uL Lymphocytes # (1.0-4.8) k/uL Monocytes # (0-1.0) k/uL Sodium (137-145) mmol/L Chloride (98-107) mmol/L Carbon Dioxide (22-30) mmol/L Creatinine (0.66-1.25) mg/dL Glucose (74-99) mg/dL POC Glucose (mg/dL) 138 H 153 H 123 H (70-110) mg/dL Calcium (8.4-10.2) mg/dL Total Protein (6.3-8.2) g/dL Albumin (3.5-5.0) g/dL 02/01/24 02/01/24 Range/Units 08:53 08:53 WBC 23.7 H (3.8-10.6) k/uL RBC 4.19 L (4.30-5.90) m/uL Hgb 12.9 L (13.0-17.5) gm/dL Neutrophils # 21.1 H (1.3-7.7) k/uL Lymphocytes # 0.7 L (1.0-4.8) k/uL Monocytes # 1.5 H (0-1.0) k/uL Sodium 135 L (137-145) mmol/L Chloride 109 H (98-107) mmol/L Carbon Dioxide (22-30) mmol/L Creatinine (0.66-1.25) mg/dL Glucose 129 H (74-99) mg/dL POC Glucose (mg/dL) (70-110) mg/dL Calcium 6.9 L (8.4-10.2) mg/dL Total Protein (6.3-8.2) g/dL Albumin (3.5-5.0) g/dL Microbiology - Last 24 Hours (Table) 01/31/24 20:45 Gram Stain - Preliminary Other - Other 01/31/24 20:45 Gram Stain - Preliminary Other - Other Assessment and Plan Plan: Assessment: 1. Acute kidney injury secondary to vasomotor nephropathy secondary to hypovolemia and hypotension. Creatinine peaked at 2.46 this admission - 0.68 today. No hydronephrosis noted on CAT scan. 2. Diverticulitis with perforation. Surgery following. Status post exploratory laparotomy with sigmoid resection January 31, 2024. Receiving TPN. 3. Metabolic acidosis secondary to acute kidney injury and IV fluids. Improved with bicarb drip. 4. Diabetes mellitus. 5. Coronary artery disease with cardiac stents. 6. Hypomagnesemia from poor intake. Replaced. Better. 7. Hypophosphatemia from poor intake. Replaced. Plan: Maintain gentle IV hydration. Also receiving TPN. Cortisol level not low. Avoid nephrotoxins. Continue to monitor renal function and urine output.
[2024-02-01 11:57] LABS: Glucose,Whole Blood 137 mg/dL (70-110)
[2024-02-01] MEDS: MAGNESIUM SULFATE-D5W PMX 1 GM in DEXTROSE/WATER 1 100ML.BAG IVPB ONE (12:16)
[2024-02-01] MEDS: TAMSULOSIN 0.4 MG CAP.ER.24H PO SCH (12:17)
--- NOTE | 2024-02-01 14:23 | P.PN ---
Subjective Progress Note Date: 02/01/24 CHIEF COMPLAINT: Diverticulitis HISTORY OF PRESENT ILLNESS: Patient is postop day #1 status post exploratory with sigmoid resection for perforated mid sigmoid colon and descending colostomy. Patient reports his pain is controlled. He denies any nausea or vomiting. Afebrile. WBC is up from 11.6-23.7hgb 12.9 PHYSICAL EXAM: VITAL SIGNS: Reviewed GENERAL: Well-developed in no acute distress. HEENT: No sclera icterus. Extraocular movements grossly intact. Moist buccal mucosa. Head is atraumatic, normocephalic. Hears conversational speech. No nasal drainage. NECK: Supple without lymphadenopathy. CHEST: Non-labored respirations and equal bilateral excursions. CARDIOVASCULAR: Palpable 2+ radial pulses. ABDOMEN: Soft. Nondistended. Mild tenderness at incision site. Prevena wound VAC clean dry and intact. MUSCULOSKELETAL: No clubbing or cyanosis. NEUROLOGIC: No focal or lateralizing signs. Cranial nerves II through XII grossly intact. PSYCH: Appropriate affect. Alert and oriented to person, place and time. SKIN: Well perfused. Good skin turgor. ASSESSMENT: 1. Perforated complicated sigmoid diverticulitis with pelvic abscess 2. Sepsis present on admission due to perforated diverticulitis 3. Obesity due to excess calories, BMI 34.4 4. Chronic back pain 5. Diabetes type 2 [id number] 6. Hypertensive heart disease 7. Hyperlipidemia 8. Depressive disorder 9. Generalized anxiety disorder 10. Bipolar disorder 11. Severe protein calorie malnutrition PLAN: -Continue clear liquid diet -Flomax ordered to avoid urinary retention -Continue TPN for nutrition support -Continue IV antibiotics -Continue full liquid diet -Repeat CBC in a.m. for leukocytosis -DVT prophylaxis subcu heparin and GI prophylaxis Protonix Physician Environmental Advisor note has been reviewed by physician. Signing provider agrees with the documented findings, assessment, and plan of care. Objective - Vital Signs Vital signs: Vital Signs Temp 97.7 F 01/31/24 22:00 Pulse 87 02/01/24 12:00 Resp 16 02/01/24 08:00 BP 151/97 02/01/24 12:00 Pulse Ox 94 L 02/01/24 12:00 FiO2 Intake & Output 01/31/24 02/01/24 02/01/24 18:59 06:59 18:59 Intake Total 3500 400 0 Output Total 450 450 Balance 3050 -50 0 Weight 112 kg 112 kg Intake: IV 3500 400 Oral 0 0 Output: Urine 450 300 Estimated Blood Loss 150 Other: Voiding Method Indwelling Catheter Indwelling Catheter Indwelling Catheter # Voids 0 # Bowel Movements 0 - Labs CBC & Chem 7: 02/01/24 08:53 02/01/24 08:53 Labs: Abnormal Lab Results - Last 24 Hours (Table) 01/31/24 01/31/24 02/01/24 Range/Units 17:08 22:14 00:15 WBC (3.8-10.6) k/uL RBC (4.30-5.90) m/uL Hgb (13.0-17.5) gm/dL Neutrophils # (1.3-7.7) k/uL Lymphocytes # (1.0-4.8) k/uL Monocytes # (0-1.0) k/uL Sodium (137-145) mmol/L Chloride (98-107) mmol/L Glucose (74-99) mg/dL POC Glucose (mg/dL) 69 L 113 H 138 H (70-110) mg/dL Calcium (8.4-10.2) mg/dL 02/01/24 02/01/24 02/01/24 Range/Units 04:18 08:02 08:53 WBC (3.8-10.6) k/uL RBC (4.30-5.90) m/uL Hgb (13.0-17.5) gm/dL Neutrophils # (1.3-7.7) k/uL Lymphocytes # (1.0-4.8) k/uL Monocytes # (0-1.0) k/uL Sodium 135 L (137-145) mmol/L Chloride 109 H (98-107) mmol/L Glucose 129 H (74-99) mg/dL POC Glucose (mg/dL) 153 H 123 H (70-110) mg/dL Calcium 6.9 L (8.4-10.2) mg/dL 02/01/24 02/01/24 Range/Units 08:53 11:55 WBC 23.7 H (3.8-10.6) k/uL RBC 4.19 L (4.30-5.90) m/uL Hgb 12.9 L (13.0-17.5) gm/dL Neutrophils # 21.1 H (1.3-7.7) k/uL Lymphocytes # 0.7 L (1.0-4.8) k/uL Monocytes # 1.5 H (0-1.0) k/uL Sodium (137-145) mmol/L Chloride (98-107) mmol/L Glucose (74-99) mg/dL POC Glucose (mg/dL) 137 H (70-110) mg/dL Calcium (8.4-10.2) mg/dL Microbiology - Last 24 Hours (Table) 01/31/24 20:45 Gram Stain - Preliminary Other - Other 01/31/24 20:45 Gram Stain - Preliminary Other - Other
--- NOTE | 2024-02-01 14:59 | P.PN ---
Subjective Progress Note Date: 02/01/24 * 53-year-old gentleman past medical history significant for chronic back pain, history of hypertension, history of diabetes mellitus presented to the emergency department with complaints of acute onset of abdominal pain on top of chronic back pain. Patient states symptom onset was 24 hours prior to presentation. Patient said he has a progressive decrease in appetite and had vomited a few times before coming in. Patient said he had 4 small stools however abdominal pain persisted. Patient was sent as a transfer from an outside hospital due to concern for diverticulitis with perforation. * General surgery team was contacted, patient was made n.p.o. * consultation obtained from general surgery and infectious disease Objective - Vital Signs Vital signs: Vital Signs Temp 97.7 F 01/31/24 22:00 Pulse 81 02/01/24 04:00 Resp 16 02/01/24 04:00 BP 120/83 02/01/24 04:00 Pulse Ox 95 02/01/24 09:27 FiO2 Intake & Output 01/31/24 02/01/24 02/01/24 18:59 06:59 18:59 Intake Total 3500 400 Output Total 450 450 Balance 3050 -50 Weight 112 kg Intake: IV 3500 400 Oral 0 Output: Urine 450 300 Estimated Blood Loss 150 Other: Voiding Method Indwelling Catheter Indwelling Catheter # Voids 0 # Bowel Movements 0 - Exam GENERAL: The patient is alert and oriented x3, not in any acute distress. Well developed, well nourished. HEENT: Pupils are round and equally reacting to light. EOMI. No scleral icterus. No conjunctival pallor. Normocephalic, atraumatic. No pharyngeal erythema. No thyromegaly. CARDIOVASCULAR: S1 and S2 present. No murmurs, rubs, or gallops. PULMONARY: Chest is clear to auscultation, no wheezing or crackles. ABDOMEN: Soft, RUQ abdominal pain, nondistended, normoactive bowel sounds. No palpable organomegaly. MUSCULOSKELETAL: No joint swelling or deformity. EXTREMITIES: No cyanosis, clubbing, or pedal edema. NEUROLOGICAL: Gross neurological examination did not reveal any focal deficits. SKIN: No rashes. - Labs CBC & Chem 7: 02/01/24 08:53 02/01/24 08:53 Labs: Abnormal Lab Results - Last 24 Hours (Table) 05/06/1701/31/24 01/31/24 Range/Units 10:04 10:04 17:08 WBC 11.6 H (3.8-10.6) k/uL RBC 3.45 L (4.30-5.90) m/uL Hgb 10.7 L (13.0-17.5) gm/dL Hct 32.8 L (39.0-53.0) % Plt Count 136 L (150-450) k/uL Neutrophils # (1.3-7.7) k/uL Lymphocytes # (1.0-4.8) k/uL Monocytes # (0-1.0) k/uL Sodium 134 L (137-145) mmol/L Chloride 108 H (98-107) mmol/L Carbon Dioxide 21 L (22-30) mmol/L Creatinine 0.56 L (0.66-1.25) mg/dL Glucose (74-99) mg/dL POC Glucose (mg/dL) 69 L (70-110) mg/dL Calcium 7.2 L (8.4-10.2) mg/dL Total Protein 4.3 L (6.3-8.2) g/dL Albumin 1.9 L (3.5-5.0) g/dL 01/31/24 02/01/24 02/01/24 Range/Units 22:14 00:15 04:18 WBC (3.8-10.6) k/uL RBC (4.30-5.90) m/uL Hgb (13.0-17.5) gm/dL Hct (39.0-53.0) % Plt Count (150-450) k/uL Neutrophils # (1.3-7.7) k/uL Lymphocytes # (1.0-4.8) k/uL Monocytes # (0-1.0) k/uL Sodium (137-145) mmol/L Chloride (98-107) mmol/L Carbon Dioxide (22-30) mmol/L Creatinine (0.66-1.25) mg/dL Glucose (74-99) mg/dL POC Glucose (mg/dL) 113 H 138 H 153 H (70-110) mg/dL Calcium (8.4-10.2) mg/dL Total Protein (6.3-8.2) g/dL Albumin (3.5-5.0) g/dL 02/01/24 02/01/24 02/01/24 Range/Units 08:02 08:53 08:53 WBC 23.7 H (3.8-10.6) k/uL RBC 4.19 L (4.30-5.90) m/uL Hgb 12.9 L (13.0-17.5) gm/dL Hct (39.0-53.0) % Plt Count (150-450) k/uL Neutrophils # 21.1 H (1.3-7.7) k/uL Lymphocytes # 0.7 L (1.0-4.8) k/uL Monocytes # 1.5 H (0-1.0) k/uL Sodium 135 L (137-145) mmol/L Chloride 109 H (98-107) mmol/L Carbon Dioxide (22-30) mmol/L Creatinine (0.66-1.25) mg/dL Glucose 129 H (74-99) mg/dL POC Glucose (mg/dL) 123 H (70-110) mg/dL Calcium 6.9 L (8.4-10.2) mg/dL Total Protein (6.3-8.2) g/dL Albumin (3.5-5.0) g/dL Microbiology - Last 24 Hours (Table) 01/31/24 20:45 Gram Stain - Preliminary Other - Other 01/31/24 20:45 Gram Stain - Preliminary Other - Other Assessment and Plan Assessment: Acute diverticulitis with perforation and localized abscess pending surgical intervention exploratory laporotomy Sepsis secondary to intra-abdominal infection continues on IV antibiotics per ID Acute kidney injury prerenal due to hypotension and dehydration. Proving Metabolic acidosis treated with bicarb drip which has been discontinued at this time hypophosphatemia will be supplemented and repeat labs in the morning Diabetes mellitus type 2 continues on sliding scale insulin every 4 hours as patient is NPO. Chronic back pain with degenerative disease of lumbar spine, was evaluated by orthopedics recommending conservative management at this time with pain medication, ice. History of hypertension currently normotensive chronic pain syndrome Hx of coronary artery disease with prior PCI. Anxiety maintained on xanax scheduled which has been resumed and patients mood has improved. GI prophylaxis protonix DVT prophylaxis Subcu heparin Full Code
[2024-02-01] MEDS ORDERED: NALOXONE 0.4 MG/ML 1 ML VIAL IV PRN (15:04)
[2024-02-01] MEDS: HYDROmorphone PCA 10 MG/50 ML BAG IV PRN (15:55)
[2024-02-01] MEDS: SODIUM CHLORIDE 0.9% 1,000 ML IV SCH (16:01)
[2024-02-01 16:05] LABS: Glucose,Whole Blood 160 mg/dL (70-110)
--- NOTE | 2024-02-01 16:06 | P.PN ---
Subjective Progress Note Date: 02/01/24 Principal diagnosis: Reason for follow-up is perforated diverticulitis with sepsis on admission Patient is a 53-year-old male with past medical history significant for diabetes mellitus hypertension anxiety bipolar depression and brain surgery patient presented to hospital with abdominal pain and this patient has been diagnosed with the ruptured diverticulitis and sepsis for the patient was transferred to [facility]. Patient is status post Exploratory laparotomy with sigmoid resection for perforated mid sigmoid colon, Descending colostomy and drainage of 1600 open abdominal abscess procedure completed on 01/31/2024. On today's evaluation that is 02/01/2024,the patient remains to be afebrile, patient is on 3 L nasal cannula supplemental oxygen and denies any shortness of breath no chest pain or cough.Patient has been complain of some nausea but no vomiting still complaining of abdominal pain requiring IV pain medication no other changes. Patient white count is up to 23.7 creatinine 0.68 abdominal cultures pending Objective - Vital Signs Vital signs: Vital Signs Temp 97.7 F 01/31/24 22:00 Pulse 92 02/01/24 08:00 Resp 16 02/01/24 08:00 BP 120/83 02/01/24 04:00 Pulse Ox 95 02/01/24 09:27 FiO2 Intake & Output 01/31/24 02/01/24 02/01/24 18:59 06:59 18:59 Intake Total 3500 400 0 Output Total 450 450 Balance 3050 -50 0 Weight 112 kg Intake: IV 3500 400 Oral 0 0 Output: Urine 450 300 Estimated Blood Loss 150 Other: Voiding Method Indwelling Catheter Indwelling Catheter Indwelling Catheter # Voids 0 # Bowel Movements 0 - Exam GENERAL DESCRIPTION: Middle-age male lying in bed in no distress RESPIRATORY SYSTEM: Unlabored breathing , decreased breath sounds at bases HEART: S1 S2 regular rate and rhythm , ABDOMEN: Soft , mild tenderness EXTREMITIES: No edema feet - Labs CBC & Chem 7: 02/01/24 08:53 02/01/24 08:53 Labs: Abnormal Lab Results - Last 24 Hours (Table) 01/31/24 01/31/24 02/01/24 Range/Units 17:08 22:14 00:15 WBC (3.8-10.6) k/uL RBC (4.30-5.90) m/uL Hgb (13.0-17.5) gm/dL Neutrophils # (1.3-7.7) k/uL Lymphocytes # (1.0-4.8) k/uL Monocytes # (0-1.0) k/uL Sodium (137-145) mmol/L Chloride (98-107) mmol/L Glucose (74-99) mg/dL POC Glucose (mg/dL) 69 L 113 H 138 H (70-110) mg/dL Calcium (8.4-10.2) mg/dL 02/01/24 02/01/24 02/01/24 Range/Units 04:18 08:02 08:53 WBC (3.8-10.6) k/uL RBC (4.30-5.90) m/uL Hgb (13.0-17.5) gm/dL Neutrophils # (1.3-7.7) k/uL Lymphocytes # (1.0-4.8) k/uL Monocytes # (0-1.0) k/uL Sodium 135 L (137-145) mmol/L Chloride 109 H (98-107) mmol/L Glucose 129 H (74-99) mg/dL POC Glucose (mg/dL) 153 H 123 H (70-110) mg/dL Calcium 6.9 L (8.4-10.2) mg/dL 02/01/24 02/01/24 Range/Units 08:53 11:55 WBC 23.7 H (3.8-10.6) k/uL RBC 4.19 L (4.30-5.90) m/uL Hgb 12.9 L (13.0-17.5) gm/dL Neutrophils # 21.1 H (1.3-7.7) k/uL Lymphocytes # 0.7 L (1.0-4.8) k/uL Monocytes # 1.5 H (0-1.0) k/uL Sodium (137-145) mmol/L Chloride (98-107) mmol/L Glucose (74-99) mg/dL POC Glucose (mg/dL) 137 H (70-110) mg/dL Calcium (8.4-10.2) mg/dL Microbiology - Last 24 Hours (Table) 01/31/24 20:45 Gram Stain - Preliminary Other - Other 01/31/24 20:45 Gram Stain - Preliminary Other - Other Assessment and Plan (1) Penicillin allergy Current Visit: Yes Status: Acute Code(s): Z88.0 - ALLERGY STATUS TO PENICILLIN SNOMED Code(s): 76719023 (2) Perforation of sigmoid colon due to diverticulitis Current Visit: Yes Status: Acute Code(s): K57.20 - DVTRCLI OF LG INT W PERFORATION AND ABSCESS W/O BLEEDING SNOMED Code(s): 7198445862431408 (3) Peritonitis Current Visit: Yes Status: Acute Code(s): K65.9 - PERITONITIS, UNSPECIFIED SNOMED Code(s): 14485383 Plan: 1patient presented hospital with sepsis in this patient did have fever tachycardia source is acute ruptured appendicitis and peritonitis and will need to cover for enteric gram-negative to be the likely pathogen less likely gram- positive kike 2-penicillin allergy that will limit the number of antibiotics safe to use 3-patient repeat CT abdominal pelvis did shows diverticulitis with multiple foc i of air and contained leak 4-patient is status post sigmoid colectomy descending colostomy and drainage of abdominal abscess cultures pending 5-patient noticing slight worsening of the white count today more likely related to surgery who will be monitored closely continue with cefepime and Flagyl r epeat CBC with a.m. lab Dictation was produced using [employer] dictation software. please excuse any gr ammatical, word or spelling errors. Time with Patient: Less than 30
[2024-02-01 20:16] LABS: Glucose,Whole Blood 117 mg/dL (70-110)
[2024-02-01] MEDS ORDERED: 1: MVI, ADULT NO.4 WITH VIT K 10 ML, TRACE (CONC-1ML/DOSE) 1 ML in AMINO ACID 5%-D20W+LY IV SCH (22:30)
[2024-02-01] MEDS: 1: MVI, ADULT NO.4 WITH VIT K 10 ML, TRACE (CONC-1ML/DOSE) 1 ML in AMINO ACID 5%-D20W+LY IV SCH (22:30)
[2024-02-02 00:34] LABS: Glucose,Whole Blood 121 mg/dL (70-110)
[2024-02-02 04:03] LABS: Glucose,Whole Blood 159 mg/dL (70-110)
[2024-02-02 07:46] LABS: ALT 9 U/L (4-49); AST 28 U/L (17-59); African American GFR (CKD) >90 (>60 ml/min/1.73 sqM); Albumin 1.7 g/dL (3.5-5.0); Alkaline Phosphatase 71 U/L (38-126); Anion Gap 3 mmol/L; Blood Urea Nitrogen 18 mg/dL (9-20); Calcium 6.9 mg/dL (8.4-10.2); Carbon Dioxide 23 mmol/L (22-30); Chloride 110 mmol/L (98-107); Glucose 113 mg/dL (74-99); Magnesium 1.9 mg/dL (1.6-2.3); Non-African American GFR(CKD) >90 (>60 ml/min/1.73 sqM); Phosphorus 2.4 mg/dL (2.5-4.5); Potassium 4.1 mmol/L (3.5-5.1); Sodium 136 mmol/L (137-145); Total Bilirubin 0.2 mg/dL (0.2-1.3)
[2024-02-02 07:51] LABS: Basophils # (A) 0.1 k/uL (0-0.2); Basophils % (A) 0 %; Eosinophils % (A) 0 %; HGB 11.4 gm/dL (13.0-17.5); Lymphocytes # (A) 0.9 k/uL (1.0-4.8); Lymphocytes % (A) 4 %; MCHC 31.6 g/dL (31.0-37.0); MCV 98.3 fL (80.0-100.0); Monocytes # (A) 1.3 k/uL (0-1.0); Monocytes % (A) 6 %; Neutrophils % (A) 88 %; Platelet Count 238 k/uL (150-450); RBC 3.66 m/uL (4.30-5.90); WBC 22.7 k/uL (3.8-10.6)
[2024-02-02 08:22] LABS: Glucose,Whole Blood 156 mg/dL (70-110)
[2024-02-02] MEDS: SODIUM PHOSPHATE 15 MMOL in DEXTROSE 5% IN WATER 250 ML IVPB ONE (10:54)
[2024-02-02 11:48] LABS: Glucose,Whole Blood 120 mg/dL (70-110)
[2024-02-02] MEDS: MAGNESIUM SULFATE-D5W PMX 1 GM in DEXTROSE/WATER 1 100ML.BAG IVPB ONE (12:43)
--- NOTE | 2024-02-02 13:15 | P.PN ---
Subjective Progress Note Date: 02/02/24 Patient is seen in follow-up for acute kidney injury. Renal function at baseline. Receiving TPN. through PICC line. Underwent exploratory laparotomy with sigmoid resection due to perforated mid sigmoid colon. No new complaints today. Vital signs are stable. General: No acute distress. HEENT: Head exam is unremarkable. LUNGS: No audible rhonchi or wheezes. HEART: Rate and Rhythm are regular. ABDOMEN: Generalized tenderness present. EXTREMITITES: No edema. Objective - Vital Signs Vital signs: Vital Signs Temp 98.4 F 02/02/24 08:25 Pulse 82 02/02/24 08:25 Resp 18 02/02/24 08:25 BP 165/78 02/02/24 08:25 Pulse Ox 96 02/02/24 08:25 FiO2 Intake & Output 02/01/24 02/02/24 02/02/24 18:59 06:59 18:59 Intake Total 222 540 20 Output Total 850 375 Balance 222 -310 -355 Weight 112 kg Intake: IV 20 Invasive Line 4 10 Invasive Line 6 10 Oral 222 540 Output: Urine 850 375 Uretheral (Michel) 375 Other: Voiding Method Indwelling Catheter Indwelling Catheter Indwelling Catheter - Labs CBC & Chem 7: 02/02/24 06:53 02/02/24 06:53 Labs: Abnormal Lab Results - Last 24 Hours (Table) 02/01/24 02/01/24 02/01/24 Range/Units 11:55 16:04 20:14 WBC (3.8-10.6) k/uL RBC (4.30-5.90) m/uL Hgb (13.0-17.5) gm/dL Hct (39.0-53.0) % Neutrophils # (1.3-7.7) k/uL Lymphocytes # (1.0-4.8) k/uL Monocytes # (0-1.0) k/uL Sodium (137-145) mmol/L Chloride (98-107) mmol/L Glucose (74-99) mg/dL POC Glucose (mg/dL) 137 H 160 H 117 H (70-110) mg/dL Calcium (8.4-10.2) mg/dL Phosphorus (2.5-4.5) mg/dL Total Protein (6.3-8.2) g/dL Albumin (3.5-5.0) g/dL 02/02/24 02/02/24 02/02/24 Range/Units 00:33 04:02 06:53 WBC (3.8-10.6) k/uL RBC (4.30-5.90) m/uL Hgb (13.0-17.5) gm/dL Hct (39.0-53.0) % Neutrophils # (1.3-7.7) k/uL Lymphocytes # (1.0-4.8) k/uL Monocytes # (0-1.0) k/uL Sodium (137-145) mmol/L Chloride (98-107) mmol/L Glucose (74-99) mg/dL POC Glucose (mg/dL) 121 H 159 H (70-110) mg/dL Calcium (8.4-10.2) mg/dL Phosphorus 2.4 L (2.5-4.5) mg/dL Total Protein (6.3-8.2) g/dL Albumin (3.5-5.0) g/dL 02/02/24 02/02/24 02/02/24 Range/Units 06:53 06:53 08:21 WBC 22.7 H (3.8-10.6) k/uL RBC 3.66 L (4.30-5.90) m/uL Hgb 11.4 L (13.0-17.5) gm/dL Hct 36.0 L (39.0-53.0) % Neutrophils # 20.0 H (1.3-7.7) k/uL Lymphocytes # 0.9 L (1.0-4.8) k/uL Monocytes # 1.3 H (0-1.0) k/uL Sodium 136 L (137-145) mmol/L Chloride 110 H (98-107) mmol/L Glucose 113 H (74-99) mg/dL POC Glucose (mg/dL) 156 H (70-110) mg/dL Calcium 6.9 L (8.4-10.2) mg/dL Phosphorus (2.5-4.5) mg/dL Total Protein 4.0 L (6.3-8.2) g/dL Albumin 1.7 L (3.5-5.0) g/dL Microbiology - Last 24 Hours (Table) 01/27/24 12:21 Blood Culture - Final Blood 01/27/24 12:28 Blood Culture - Final Blood 01/31/24 20:45 Gram Stain - Preliminary Other - Other Wound Culture - Preliminary 01/31/24 20:45 Gram Stain - Preliminary Other - Other Assessment and Plan Plan: Assessment: 1. Acute kidney injury secondary to vasomotor nephropathy secondary to hypovolemia and hypotension. Creatinine peaked at 2.46 this admission - resolved at 0.76 today. No hydronephrosis noted on CAT scan. 2. Diverticulitis with perforation. Surgery following. Status post exploratory laparotomy with sigmoid resection January 31, 2024. Receiving TPN. 3. Metabolic acidosis secondary to acute kidney injury and IV fluids. Improved with bicarb drip. 4. Diabetes mellitus. 5. Coronary artery disease with cardiac stents. 6. Hypomagnesemia from poor intake. Replaced. Better. 7. Hypophosphatemia from poor intake. Replaced. Plan: Maintain gentle IV hydration. Also receiving TPN. Cortisol level not low. Avoid nephrotoxins. Continue to monitor renal function and urine output.
--- NOTE | 2024-02-02 13:29 | P.PN ---
Subjective Progress Note Date: 02/02/24 Principal diagnosis: Reason for follow-up is perforated diverticulitis with sepsis on admission Patient is a 53-year-old male with past medical history significant for diabetes mellitus hypertension anxiety bipolar depression and brain surgery patient presented to hospital with abdominal pain and this patient has been diagnosed with the ruptured diverticulitis and sepsis for the patient was transferred to [facility]. Patient is status post Exploratory laparotomy with sigmoid resection for perforated mid sigmoid colon, Descending colostomy and drainage of 1600 open abdominal abscess procedure completed on 01/31/2024. On today's evaluation that is 02/02/2024, the patient continues to be afebrile, the patient is on 6 L nasal cannula oxygen and breathing comfortably, the Pt slightly sleepy today and not able to good historian no vomiting or any other changes reported by nursing staff no output in the colostomy bag. Patient white count is slightly down to 22.7, creatinine 0.76 abdominal cultures currently pending Objective - Vital Signs Vital signs: Vital Signs Temp 98.4 F 02/02/24 08:25 Pulse 82 02/02/24 08:25 Resp 18 02/02/24 08:25 BP 165/78 02/02/24 08:25 Pulse Ox 96 02/02/24 08:25 FiO2 Intake & Output 02/01/24 02/02/24 02/02/24 18:59 06:59 18:59 Intake Total 222 540 20 Output Total 850 375 Balance 222 310 -355 Weight 112 kg Intake: IV 20 Invasive Line 4 10 Invasive Line 6 10 Oral 222 540 Output: Urine 850 375 Uretheral (Michel) 375 Other: Voiding Method Indwelling Catheter Indwelling Catheter Indwelling Catheter - Exam GENERAL DESCRIPTION: Middle-age male lying in bed in no distress RESPIRATORY SYSTEM: Unlabored breathing , decreased breath sounds at bases HEART: S1 S2 regular rate and rhythm , ABDOMEN: Soft , mild tenderness EXTREMITIES: No edema feet - Labs CBC & Chem 7: 02/02/24 06:53 02/02/24 06:53 Labs: Abnormal Lab Results - Last 24 Hours (Table) 02/01/24 02/01/24 02/01/24 Range/Units 08:53 08:53 11:55 WBC 23.7 H (3.8-10.6) k/uL RBC 4.19 L (4.30-5.90) m/uL Hgb 12.9 L (13.0-17.5) gm/dL Hct (39.0-53.0) % Neutrophils # 21.1 H (1.3-7.7) k/uL Lymphocytes # 0.7 L (1.0-4.8) k/uL Monocytes # 1.5 H (0-1.0) k/uL Sodium 135 L (137-145) mmol/L Chloride 109 H (98-107) mmol/L Glucose 129 H (74-99) mg/dL POC Glucose (mg/dL) 137 H (70-110) mg/dL Calcium 6.9 L (8.4-10.2) mg/dL Phosphorus (2.5-4.5) mg/dL Total Protein (6.3-8.2) g/dL Albumin (3.5-5.0) g/dL 02/01/24 02/01/24 02/02/24 Range/Units 16:04 20:14 00:33 WBC (3.8-10.6) k/uL RBC (4.30-5.90) m/uL Hgb (13.0-17.5) gm/dL Hct (39.0-53.0) % Neutrophils # (1.3-7.7) k/uL Lymphocytes # (1.0-4.8) k/uL Monocytes # (0-1.0) k/uL Sodium (137-145) mmol/L Chloride (98-107) mmol/L Glucose (74-99) mg/dL POC Glucose (mg/dL) 160 H 117 H 121 H (70-110) mg/dL Calcium (8.4-10.2) mg/dL Phosphorus (2.5-4.5) mg/dL Total Protein (6.3-8.2) g/dL Albumin (3.5-5.0) g/dL 02/02/24 02/02/24 02/02/24 Range/Units 04:02 06:53 06:53 WBC (3.8-10.6) k/uL RBC (4.30-5.90) m/uL Hgb (13.0-17.5) gm/dL Hct (39.0-53.0) % Neutrophils # (1.3-7.7) k/uL Lymphocytes # (1.0-4.8) k/uL Monocytes # (0-1.0) k/uL Sodium 136 L (137-145) mmol/L Chloride 110 H (98-107) mmol/L Glucose 113 H (74-99) mg/dL POC Glucose (mg/dL) 159 H (70-110) mg/dL Calcium 6.9 L (8.4-10.2) mg/dL Phosphorus 2.4 L (2.5-4.5) mg/dL Total Protein 4.0 L (6.3-8.2) g/dL Albumin 1.7 L (3.5-5.0) g/dL 02/02/24 02/02/24 Range/Units 06:53 08:21 WBC 22.7 H (3.8-10.6) k/uL RBC 3.66 L (4.30-5.90) m/uL Hgb 11.4 L (13.0-17.5) gm/dL Hct 36.0 L (39.0-53.0) % Neutrophils # 20.0 H (1.3-7.7) k/uL Lymphocytes # 0.9 L (1.0-4.8) k/uL Monocytes # 1.3 H (0-1.0) k/uL Sodium (137-145) mmol/L Chloride (98-107) mmol/L Glucose (74-99) mg/dL POC Glucose (mg/dL) 156 H (70-110) mg/dL Calcium (8.4-10.2) mg/dL Phosphorus (2.5-4.5) mg/dL Total Protein (6.3-8.2) g/dL Albumin (3.5-5.0) g/dL Microbiology - Last 24 Hours (Table) 01/27/24 12:21 Blood Culture - Final Blood 01/27/24 12:28 Blood Culture - Final Blood 01/31/24 20:45 Gram Stain - Preliminary Other - Other Wound Culture - Preliminary 01/31/24 20:45 Gram Stain - Preliminary Other - Other Assessment and Plan (1) Penicillin allergy Current Visit: Yes Status: Acute Code(s): Z88.0 - ALLERGY STATUS TO PENICILLIN SNOMED Code(s): 39451275 (2) Perforation of sigmoid colon due to diverticulitis Current Visit: Yes Status: Acute Code(s): K57.20 - DVTRCLI OF LG INT W PERFORATION AND ABSCESS W/O BLEEDING SNOMED Code(s): 6872188546513736 (3) Peritonitis Current Visit: Yes Status: Acute Code(s): K65.9 - PERITONITIS, UNSPECIFIED SNOMED Code(s): 20459348 Plan: 1patient presented hospital with sepsis in this patient did have fever tachycardia source is acute ruptured appendicitis and peritonitis and will need to cover for enteric gram-negative to be the likely pathogen less likely gram- positive kike 2-penicillin allergy that will limit the number of antibiotics safe to use 3-patient repeat CT abdominal pelvis did shows diverticulitis with multiple foci of air and contained leak 4-patient is status post sigmoid colectomy descending colostomy and drainage of abdominal abscess cultures pending 5-patient white count slightly down today will monitor closely and continue with cefepime and Flagyl we will repeat CBC with a.m. lab Dictation was produced using [employer] dictation software. please excuse any grammatical, word or spelling errors. Time with Patient: Less than 30
--- NOTE | 2024-02-02 14:56 | P.PN ---
Subjective Progress Note Date: 02/02/24 * 53-year-old gentleman past medical history significant for chronic back pain, history of hypertension, history of diabetes mellitus presented to the emergency department with complaints of acute onset of abdominal pain on top of chronic back pain. Patient states symptom onset was 24 hours prior to presentation. Patient said he has a progressive decrease in appetite and had vomited a few times before coming in. Patient said he had 4 small stools however abdominal pain persisted. Patient was sent as a transfer from an outside hospital due to concern for diverticulitis with perforation. * General surgery team was contacted, patient was made n.p.o. * consultation obtained from general surgery and infectious disease * 02/02/2024 Patient is seen and evaluated in room at bedside; no specific complaints reported Vital signs are reviewed and temperature 98.4, pulse 82, respiration 18 and blood pressure 165/78 with O2 saturation 96% Labs revealed WBC of 22.7, improved from 23.7 yesterday, hemoglobin 11.4, platelet count of 238, sodium 138, potassium 4.1, BUNs/creatinine 18/0.76 and blood glucose of 113 -patient presented hospital with sepsis in this patient did have fever tachycardia source is acute ruptured appendicitis and peritonitis and will need to cover for enteric gram-negative to be the likely pathogen less likely gram- positive kike -penicillin allergy that will limit the number of antibiotics safe to use -patient repeat CT abdominal pelvis did shows diverticulitis with multiple foci of air and contained leak -patient white count slightly down today will monitor closely; continue with cefepime and Flagyl we will repeat CBC with a.m. lab Objective - Vital Signs Vital signs: Vital Signs Temp 98.4 F 02/02/24 08:25 Pulse 82 02/02/24 08:25 Resp 18 02/02/24 08:25 BP 165/78 02/02/24 08:25 Pulse Ox 96 02/02/24 08:25 FiO2 Intake & Output 02/01/24 02/02/24 02/02/24 18:59 06:59 18:59 Intake Total 222 540 20 Output Total 850 375 Balance 222 310 -355 Weight 112 kg Intake: IV 20 Invasive Line 4 10 Invasive Line 6 10 Oral 222 540 Output: Urine 850 375 Uretheral (Michel) 375 Other: Voiding Method Indwelling Catheter Indwelling Catheter Indwelling Catheter - Exam GENERAL: The patient is alert and oriented x3, not in any acute distress. Well developed, well nourished. HEENT: Pupils are round and equally reacting to light. EOMI. No scleral icterus. No conjunctival pallor. Normocephalic, atraumatic. No pharyngeal erythema. No thyromegaly. CARDIOVASCULAR: S1 and S2 present. No murmurs, rubs, or gallops. PULMONARY: Chest is clear to auscultation, no wheezing or crackles. ABDOMEN: Soft, RUQ abdominal pain, nondistended, normoactive bowel sounds. No palpable organomegaly. MUSCULOSKELETAL: No joint swelling or deformity. EXTREMITIES: No cyanosis, clubbing, or pedal edema. NEUROLOGICAL: Gross neurological examination did not reveal any focal deficits. SKIN: No rashes. - Labs CBC & Chem 7: 02/02/24 06:53 02/02/24 06:53 Labs: Abnormal Lab Results - Last 24 Hours (Table) 02/01/24 02/01/24 02/01/24 Range/Units 08:53 11:55 16:04 WBC (3.8-10.6) k/uL RBC (4.30-5.90) m/uL Hgb (13.0-17.5) gm/dL Hct (39.0-53.0) % Neutrophils # (1.3-7.7) k/uL Lymphocytes # (1.0-4.8) k/uL Monocytes # (0-1.0) k/uL Sodium 135 L (137-145) mmol/L Chloride 109 H (98-107) mmol/L Glucose 129 H (74-99) mg/dL POC Glucose (mg/dL) 137 H 160 H (70-110) mg/dL Calcium 6.9 L (8.4-10.2) mg/dL Phosphorus (2.5-4.5) mg/dL Total Protein (6.3-8.2) g/dL Albumin (3.5-5.0) g/dL 02/01/24 02/02/24 02/02/24 Range/Units 20:14 00:33 04:02 WBC (3.8-10.6) k/uL RBC (4.30-5.90) m/uL Hgb (13.0-17.5) gm/dL Hct (39.0-53.0) % Neutrophils # (1.3-7.7) k/uL Lymphocytes # (1.0-4.8) k/uL Monocytes # (0-1.0) k/uL Sodium (137-145) mmol/L Chloride (98-107) mmol/L Glucose (74-99) mg/dL POC Glucose (mg/dL) 117 H 121 H 159 H (70-110) mg/dL Calcium (8.4-10.2) mg/dL Phosphorus (2.5-4.5) mg/dL Total Protein (6.3-8.2) g/dL Albumin (3.5-5.0) g/dL 02/02/24 02/02/24 02/02/24 Range/Units 06:53 06:53 06:53 WBC 22.7 H (3.8-10.6) k/uL RBC 3.66 L (4.30-5.90) m/uL Hgb 11.4 L (13.0-17.5) gm/dL Hct 36.0 L (39.0-53.0) % Neutrophils # 20.0 H (1.3-7.7) k/uL Lymphocytes # 0.9 L (1.0-4.8) k/uL Monocytes # 1.3 H (0-1.0) k/uL Sodium 136 L (137-145) mmol/L Chloride 110 H (98-107) mmol/L Glucose 113 H (74-99) mg/dL POC Glucose (mg/dL) (70-110) mg/dL Calcium 6.9 L (8.4-10.2) mg/dL Phosphorus 2.4 L (2.5-4.5) mg/dL Total Protein 4.0 L (6.3-8.2) g/dL Albumin 1.7 L (3.5-5.0) g/dL 02/02/24 Range/Units 08:21 WBC (3.8-10.6) k/uL RBC (4.30-5.90) m/uL Hgb (13.0-17.5) gm/dL Hct (39.0-53.0) % Neutrophils # (1.3-7.7) k/uL Lymphocytes # (1.0-4.8) k/uL Monocytes # (0-1.0) k/uL Sodium (137-145) mmol/L Chloride (98-107) mmol/L Glucose (74-99) mg/dL POC Glucose (mg/dL) 156 H (70-110) mg/dL Calcium (8.4-10.2) mg/dL Phosphorus (2.5-4.5) mg/dL Total Protein (6.3-8.2) g/dL Albumin (3.5-5.0) g/dL Microbiology - Last 24 Hours (Table) 01/27/24 12:21 Blood Culture - Final Blood 01/27/24 12:28 Blood Culture - Final Blood 01/31/24 20:45 Gram Stain - Preliminary Other - Other Wound Culture - Preliminary 01/31/24 20:45 Gram Stain - Preliminary Other - Other Assessment and Plan Assessment: Acute diverticulitis with perforation and localized abscess pending surgical intervention exploratory laporotomy Sepsis secondary to intra-abdominal infection continues on IV antibiotics per ID Acute kidney injury prerenal due to hypotension and dehydration. Proving Metabolic acidosis treated with bicarb drip which has been discontinued at this time hypophosphatemia will be supplemented and repeat labs in the morning Diabetes mellitus type 2 continues on sliding scale insulin every 4 hours as patient is NPO. Chronic back pain with degenerative disease of lumbar spine, was evaluated by orthopedics recommending conservative management at this time with pain medication, ice. History of hypertension currently normotensive chronic pain syndrome Hx of coronary artery disease with prior PCI. Anxiety maintained on xanax scheduled which has been resumed and patients mood has improved. GI prophylaxis protonix DVT prophylaxis Subcu heparin Full Code
[2024-02-02 16:04] LABS: Glucose,Whole Blood 108 mg/dL (70-110)
--- NOTE | 2024-02-02 19:05 | P.PN ---
Subjective Patient seen and evaluated at bedside. Patient doing well, no complaints. Objective - Vital Signs Vital signs: Vital Signs Temp 97.7 F 02/02/24 14:40 Pulse 82 02/02/24 14:40 Resp 16 02/02/24 14:40 BP 125/82 02/02/24 14:40 Pulse Ox 96 02/02/24 14:40 FiO2 Intake & Output 02/02/24 02/02/24 02/03/24 06:59 18:59 06:59 Intake Total 540 2670 Output Total 850 1285 Balance -310 1385 Intake: IV 20 Invasive Line 4 10 Invasive Line 6 10 Intake, IV Titration 2650 Amount Amino Acid 5%-D20w+Lytes* 1000 E* 1,000 ml @ 90 mls/hr IV .BY DURATION [facility] Rx#: [id number] Cefepime 2 gm In Sodium 200 Chloride 0.9% 100 ml @ 25 mls/hr IVPB Q8HR [facility] Rx# :[id number] Magnesium Sulfate-D5w Pmx 100 1 gm In Dextrose/Water 1 100ml.bag @ 100 mls/hr IVPB ONCE ONE Rx#: [id number] Sodium Chloride 0.9% 1, 900 000 ml @ 50 mls/hr IV . Q20H [facility] Rx#:[id number] Sodium Phosphate 15 mmol 250 In Dextrose 5% in Water 250 ml @ 127.5 mls/hr IVPB ONCE ONE Rx#: [id number] metroNIDAZOLE-NS PMX 500 200 mg In Saline 1 100ml.bag @ 100 mls/hr IVPB Q6HR [facility] Rx#:[id number] Oral 540 Output: Urine 850 1125 Uretheral (Michel) 1125 Stool 160 Other: Voiding Method Indwelling Catheter Indwelling Catheter - Exam gen: nad cv: rrr pul: non labored breathing abd: soft, non tender to palpation no guarding or rebound tenderness, ostmy pink, patent but not producing - Labs CBC & Chem 7: 02/02/24 06:53 02/02/24 06:53 Labs: Abnormal Lab Results - Last 24 Hours (Table) 02/01/24 02/02/24 02/02/24 Range/Units 20:14 00:33 04:02 WBC (3.8-10.6) k/uL RBC (4.30-5.90) m/uL Hgb (13.0-17.5) gm/dL Hct (39.0-53.0) % Neutrophils # (1.3-7.7) k/uL Lymphocytes # (1.0-4.8) k/uL Monocytes # (0-1.0) k/uL Sodium (137-145) mmol/L Chloride (98-107) mmol/L Glucose (74-99) mg/dL POC Glucose (mg/dL) 117 H 121 H 159 H (70-110) mg/dL Calcium (8.4-10.2) mg/dL Phosphorus (2.5-4.5) mg/dL Total Protein (6.3-8.2) g/dL Albumin (3.5-5.0) g/dL 02/02/24 02/02/24 02/02/24 Range/Units 06:53 06:53 06:53 WBC 22.7 H (3.8-10.6) k/uL RBC 3.66 L (4.30-5.90) m/uL Hgb 11.4 L (13.0-17.5) gm/dL Hct 36.0 L (39.0-53.0) % Neutrophils # 20.0 H (1.3-7.7) k/uL Lymphocytes # 0.9 L (1.0-4.8) k/uL Monocytes # 1.3 H (0-1.0) k/uL Sodium 136 L (137-145) mmol/L Chloride 110 H (98-107) mmol/L Glucose 113 H (74-99) mg/dL POC Glucose (mg/dL) (70-110) mg/dL Calcium 6.9 L (8.4-10.2) mg/dL Phosphorus 2.4 L (2.5-4.5) mg/dL Total Protein 4.0 L (6.3-8.2) g/dL Albumin 1.7 L (3.5-5.0) g/dL 02/02/24 02/02/24 Range/Units 08:21 11:47 WBC (3.8-10.6) k/uL RBC (4.30-5.90) m/uL Hgb (13.0-17.5) gm/dL Hct (39.0-53.0) % Neutrophils # (1.3-7.7) k/uL Lymphocytes # (1.0-4.8) k/uL Monocytes # (0-1.0) k/uL Sodium (137-145) mmol/L Chloride (98-107) mmol/L Glucose (74-99) mg/dL POC Glucose (mg/dL) 156 H 120 H (70-110) mg/dL Calcium (8.4-10.2) mg/dL Phosphorus (2.5-4.5) mg/dL Total Protein (6.3-8.2) g/dL Albumin (3.5-5.0) g/dL Microbiology - Last 24 Hours (Table) 01/31/24 20:45 Gram Stain - Final Other - Other Wound Culture - Final Hamida albicans 01/27/24 12:21 Blood Culture - Final Blood 01/27/24 12:28 Blood Culture - Final Blood 01/31/24 20:45 Gram Stain - Preliminary Other - Other Wound Culture - Preliminary Assessment and Plan Assessment: 53 yo male s/p daniel -pain controlled -continue to trend labs -ostomy not producing at this time -advance diet as tolerated
[2024-02-02 20:20] LABS: Glucose,Whole Blood 119 mg/dL (70-110)
[2024-02-03 00:05] LABS: Glucose,Whole Blood 113 mg/dL (70-110)
[2024-02-03 04:13] LABS: Glucose,Whole Blood 156 mg/dL (70-110)
[2024-02-03 08:12] LABS: Glucose,Whole Blood 121 mg/dL (70-110)
[2024-02-03 09:32] LABS: ALT 8 U/L (4-49); AST 29 U/L (17-59); African American GFR (CKD) >90 (>60 ml/min/1.73 sqM); Albumin 1.7 g/dL (3.5-5.0); Alkaline Phosphatase 72 U/L (38-126); Anion Gap 1 mmol/L; Blood Urea Nitrogen 12 mg/dL (9-20); Calcium 6.8 mg/dL (8.4-10.2); Carbon Dioxide 26 mmol/L (22-30); Chloride 109 mmol/L (98-107); Glucose 112 mg/dL (74-99); Non-African American GFR(CKD) >90 (>60 ml/min/1.73 sqM); Potassium 3.8 mmol/L (3.5-5.1); Sodium 136 mmol/L (137-145); Total Bilirubin 0.2 mg/dL (0.2-1.3)
[2024-02-03 09:33] LABS: Basophils # (A) 0.1 k/uL (0-0.2); Basophils % (A) 0 %; Eosinophils # (A) 0.1 k/uL (0-0.7); Eosinophils % (A) 0 %; HCT 31.4 % (39.0-53.0); Hypochromasia Moderate; Lymphocytes # (A) 0.7 k/uL (1.0-4.8); Lymphocytes % (A) 4 %; MCH 30.9 pg (25.0-35.0); MCHC 30.7 g/dL (31.0-37.0); MCV 100.6 fL (80.0-100.0); Macrocytosis Slight; Mean Platelet Volume 9.1; Monocytes # (A) 0.9 k/uL (0-1.0); Monocytes % (A) 5 %; Neutrophils # (A) 14.3 k/uL (1.3-7.7); Neutrophils % (A) 88 %; Platelet Count 268 k/uL (150-450); RBC 3.12 m/uL (4.30-5.90); RDW 13.7 % (11.5-15.5); WBC 16.3 k/uL (3.8-10.6)
[2024-02-03 09:36] LABS: Magnesium 1.8 mg/dL (1.6-2.3); Phosphorus 1.9 mg/dL (2.5-4.5)
[2024-02-03 09:37] LABS: HGB 9.6 gm/dL (13.0-17.5)
--- NOTE | 2024-02-03 11:09 | P.PN ---
Subjective Progress Note Date: 02/03/24 Principal diagnosis: perforated diverticulitis patient is stable. He has complaints of back pain related to his back fracture. He has minimal abdominal pain. On exam vital signs appear stable. Abdomen soft. Colostomy has some limited output. Patient's white count is 22,000. He'll continue receive IV antibiotic. We will follow him closely. Objective - Vital Signs Vital signs: Vital Signs Temp 97.4 F L 02/03/24 08:36 Pulse 74 02/03/24 08:36 Resp 16 02/03/24 08:36 BP 108/65 02/03/24 08:36 Pulse Ox 98 02/03/24 08:36 FiO2 Intake & Output 02/02/24 02/03/24 02/03/24 18:59 06:59 18:59 Intake Total 3681 0 Output Total 1285 850 375 Balance 2396 -850 -375 Intake: IV 20 Invasive Line 4 10 Invasive Line 6 10 Intake, IV Titration 3661 Amount Amino Acid 5%-D20w+Lytes* 1000 E* 1,000 ml @ 90 mls/hr IV .BY DURATION [facility] Rx#: [id number] Cefepime 2 gm In Sodium 200 Chloride 0.9% 100 ml @ 25 mls/hr IVPB Q8HR [facility] Rx# :[id number] Magnesium Sulfate-D5w Pmx 100 1 gm In Dextrose/Water 1 100ml.bag @ 100 mls/hr IVPB ONCE ONE Rx#: [id number] Mvi, Adult No.4 with Vit 1011 K 10 ml Trace (Conc-1Ml/ Dose) 1 ml In Amino Acid 5%-D20w+Lytes*E* 1,000 ml @ 90 mls/hr IV .BY DURATION [facility] Rx#: [id number] Sodium Chloride 0.9% 1, 900 000 ml @ 50 mls/hr IV . Q20H [facility] Rx#:[id number] Sodium Phosphate 15 mmol 250 In Dextrose 5% in Water 250 ml @ 127.5 mls/hr IVPB ONCE ONE Rx#: [id number] metroNIDAZOLE-NS PMX 500 200 mg In Saline 1 100ml.bag @ 100 mls/hr IVPB Q6HR [facility] Rx#:[id number] Oral 0 Output: Urine 1125 700 375 Uretheral (Michel) 1125 375 Stool 160 150 Other: Voiding Method Indwelling Catheter Indwelling Catheter Indwelling Catheter - Labs CBC & Chem 7: 02/03/24 08:19 02/03/24 08:19 Labs: Abnormal Lab Results - Last 24 Hours (Table) 02/02/24 02/02/24 02/03/24 Range/Units 11:47 20:18 00:04 WBC (3.8-10.6) k/uL RBC (4.30-5.90) m/uL Hgb (13.0-17.5) gm/dL Hct (39.0-53.0) % MCV (80.0-100.0) fL MCHC (31.0-37.0) g/dL Neutrophils # (1.3-7.7) k/uL Lymphocytes # (1.0-4.8) k/uL Sodium (137-145) mmol/L Chloride (98-107) mmol/L Creatinine (0.66-1.25) mg/dL Glucose (74-99) mg/dL POC Glucose (mg/dL) 120 H 119 H 113 H (70-110) mg/dL Calcium (8.4-10.2) mg/dL Phosphorus (2.5-4.5) mg/dL Total Protein (6.3-8.2) g/dL Albumin (3.5-5.0) g/dL 02/03/24 02/03/24 02/03/24 Range/Units 04:12 08:02 08:19 WBC (3.8-10.6) k/uL RBC (4.30-5.90) m/uL Hgb (13.0-17.5) gm/dL Hct (39.0-53.0) % MCV (80.0-100.0) fL MCHC (31.0-37.0) g/dL Neutrophils # (1.3-7.7) k/uL Lymphocytes # (1.0-4.8) k/uL Sodium (137-145) mmol/L Chloride (98-107) mmol/L Creatinine (0.66-1.25) mg/dL Glucose (74-99) mg/dL POC Glucose (mg/dL) 156 H 121 H (70-110) mg/dL Calcium (8.4-10.2) mg/dL Phosphorus 1.9 L (2.5-4.5) mg/dL Total Protein (6.3-8.2) g/dL Albumin (3.5-5.0) g/dL 02/03/24 02/03/24 Range/Units 08:19 08:19 WBC 16.3 H (3.8-10.6) k/uL RBC 3.12 L (4.30-5.90) m/uL Hgb 9.6 L D (13.0-17.5) gm/dL Hct 31.4 L (39.0-53.0) % MCV 100.6 H (80.0-100.0) fL MCHC 30.7 L (31.0-37.0) g/dL Neutrophils # 14.3 H (1.3-7.7) k/uL Lymphocytes # 0.7 L (1.0-4.8) k/uL Sodium 136 L (137-145) mmol/L Chloride 109 H (98-107) mmol/L Creatinine 0.50 L (0.66-1.25) mg/dL Glucose 112 H (74-99) mg/dL POC Glucose (mg/dL) (70-110) mg/dL Calcium 6.8 L (8.4-10.2) mg/dL Phosphorus (2.5-4.5) mg/dL Total Protein 4.0 L (6.3-8.2) g/dL Albumin 1.7 L (3.5-5.0) g/dL Microbiology - Last 24 Hours (Table) 01/31/24 20:45 Gram Stain - Final Other - Other Wound Culture - Final Hamida albicans
[2024-02-03 11:19] LABS: Glucose,Whole Blood 160 mg/dL (70-110)
--- NOTE | 2024-02-03 11:57 | P.PN ---
Subjective Progress Note Date: 02/03/24 Patient is seen in follow-up for acute kidney injury. Renal function at baseline. Receiving TPN. through PICC line. Underwent exploratory laparotomy with sigmoid resection due to perforated mid sigmoid colon. No new complaints today. Vital signs are stable. General: No acute distress. HEENT: Head exam is unremarkable. LUNGS: No audible rhonchi or wheezes. HEART: Rate and Rhythm are regular. ABDOMEN: Generalized tenderness present. EXTREMITITES: No edema. Objective - Vital Signs Vital signs: Vital Signs Temp 97.4 F L 02/03/24 08:36 Pulse 74 02/03/24 08:36 Resp 16 02/03/24 08:36 BP 108/65 02/03/24 08:36 Pulse Ox 98 02/03/24 08:36 FiO2 Intake & Output 02/02/24 02/03/24 02/03/24 18:59 06:59 18:59 Intake Total 3681 0 Output Total 1285 850 375 Balance 2396 -850 -375 Intake: IV 20 Invasive Line 4 10 Invasive Line 6 10 Intake, IV Titration 3661 Amount Amino Acid 5%-D20w+Lytes* 1000 E* 1,000 ml @ 90 mls/hr IV .BY DURATION [facility] Rx#: [id number] Cefepime 2 gm In Sodium 200 Chloride 0.9% 100 ml @ 25 mls/hr IVPB Q8HR [facility] Rx# :[id number] Magnesium Sulfate-D5w Pmx 100 1 gm In Dextrose/Water 1 100ml.bag @ 100 mls/hr IVPB ONCE ONE Rx#: [id number] Mvi, Adult No.4 with Vit 1011 K 10 ml Trace (Conc-1Ml/ Dose) 1 ml In Amino Acid 5%-D20w+Lytes*E* 1,000 ml @ 90 mls/hr IV .BY DURATION [facility] Rx#: [id number] Sodium Chloride 0.9% 1, 900 000 ml @ 50 mls/hr IV . Q20H [facility] Rx#:[id number] Sodium Phosphate 15 mmol 250 In Dextrose 5% in Water 250 ml @ 127.5 mls/hr IVPB ONCE ONE Rx#: [id number] metroNIDAZOLE-NS PMX 500 200 mg In Saline 1 100ml.bag @ 100 mls/hr IVPB Q6HR [facility] Rx#:[id number] Oral 0 Output: Urine 1125 700 375 Uretheral (Michel) 1125 375 Stool 160 150 Other: Voiding Method Indwelling Catheter Indwelling Catheter Indwelling Catheter - Labs CBC & Chem 7: 02/03/24 08:19 02/03/24 08:19 Labs: Abnormal Lab Results - Last 24 Hours (Table) 02/02/24 02/02/24 02/03/24 Range/Units 11:47 20:18 00:04 WBC (3.8-10.6) k/uL RBC (4.30-5.90) m/uL Hgb (13.0-17.5) gm/dL Hct (39.0-53.0) % MCV (80.0-100.0) fL MCHC (31.0-37.0) g/dL Neutrophils # (1.3-7.7) k/uL Lymphocytes # (1.0-4.8) k/uL Sodium (137-145) mmol/L Chloride (98-107) mmol/L Creatinine (0.66-1.25) mg/dL Glucose (74-99) mg/dL POC Glucose (mg/dL) 120 H 119 H 113 H (70-110) mg/dL Calcium (8.4-10.2) mg/dL Phosphorus (2.5-4.5) mg/dL Total Protein (6.3-8.2) g/dL Albumin (3.5-5.0) g/dL 02/03/24 02/03/24 02/03/24 Range/Units 04:12 08:02 08:19 WBC (3.8-10.6) k/uL RBC (4.30-5.90) m/uL Hgb (13.0-17.5) gm/dL Hct (39.0-53.0) % MCV (80.0-100.0) fL MCHC (31.0-37.0) g/dL Neutrophils # (1.3-7.7) k/uL Lymphocytes # (1.0-4.8) k/uL Sodium (137-145) mmol/L Chloride (98-107) mmol/L Creatinine (0.66-1.25) mg/dL Glucose (74-99) mg/dL POC Glucose (mg/dL) 156 H 121 H (70-110) mg/dL Calcium (8.4-10.2) mg/dL Phosphorus 1.9 L (2.5-4.5) mg/dL Total Protein (6.3-8.2) g/dL Albumin (3.5-5.0) g/dL 02/03/24 02/03/24 Range/Units 08:19 08:19 WBC 16.3 H (3.8-10.6) k/uL RBC 3.12 L (4.30-5.90) m/uL Hgb 9.6 L D (13.0-17.5) gm/dL Hct 31.4 L (39.0-53.0) % MCV 100.6 H (80.0-100.0) fL MCHC 30.7 L (31.0-37.0) g/dL Neutrophils # 14.3 H (1.3-7.7) k/uL Lymphocytes # 0.7 L (1.0-4.8) k/uL Sodium 136 L (137-145) mmol/L Chloride 109 H (98-107) mmol/L Creatinine 0.50 L (0.66-1.25) mg/dL Glucose 112 H (74-99) mg/dL POC Glucose (mg/dL) (70-110) mg/dL Calcium 6.8 L (8.4-10.2) mg/dL Phosphorus (2.5-4.5) mg/dL Total Protein 4.0 L (6.3-8.2) g/dL Albumin 1.7 L (3.5-5.0) g/dL Microbiology - Last 24 Hours (Table) 01/31/24 20:45 Gram Stain - Final Other - Other Wound Culture - Final Hamida albicans Assessment and Plan Plan: Assessment: 1. Acute kidney injury secondary to vasomotor nephropathy secondary to hypovolemia and hypotension. Creatinine peaked at 2.46 this admission - resolved at 0.50 today. No hydronephrosis noted on CAT scan. 2. Diverticulitis with perforation. Surgery following. Status post explorat ory laparotomy with sigmoid resection January 31, 2024. Receiving TPN. 3. Metabolic acidosis secondary to acute kidney injury and IV fluids. Improved with bicarb drip. 4. Diabetes mellitus. 5. Coronary artery disease with cardiac stents. 6. Hypomagnesemia from poor intake. Replaced. Better. 7. Hypophosphatemia from poor intake. Replaced. Plan: Maintain gentle IV hydration. Also receiving TPN. Cortisol level not low. Avoid nephrotoxins. Continue to monitor renal function and urine output.
[2024-02-03] MEDS: MAGNESIUM SULFATE-D5W PMX 1 GM in DEXTROSE/WATER 1 100ML.BAG IVPB ONE (13:01)
[2024-02-03] MEDS: POTASSIUM CHLORIDE 20 MEQ in WATER FOR INJECTION 1 100ML.BAG IVPB ONE (13:02)
[2024-02-03] MEDS: SODIUM PHOSPHATE 30 MMOL in DEXTROSE 5% IN WATER 250 ML IVPB ONE (15:50)
[2024-02-03 15:56] LABS: Glucose,Whole Blood 141 mg/dL (70-110)
[2024-02-03] MEDS: 1: MVI, ADULT NO.4 WITH VIT K 10 ML, TRACE (CONC-1ML/DOSE) 1 ML in AMINO ACID 5%-D20W+LY IV SCH (16:04)
--- NOTE | 2024-02-03 17:01 | P.PN ---
Subjective Progress Note Date: 02/03/24 * 53-year-old gentleman past medical history significant for chronic back pain, history of hypertension, history of diabetes mellitus presented to the emergency department with complaints of acute onset of abdominal pain on top of chronic back pain. Patient states symptom onset was 24 hours prior to presentation. Patient said he has a progressive decrease in appetite and had vomited a few times before coming in. Patient said he had 4 small stools however abdominal pain persisted. Patient was sent as a transfer from an outside hospital due to concern for diverticulitis with perforation. * General surgery team was contacted, patient was made n.p.o. * consultation obtained from general surgery and infectious disease * 02/02/2024 Patient is seen and evaluated in room at bedside; no specific complaints reported Vital signs are reviewed and temperature 98.4, pulse 82, respiration 18 and blood pressure 165/78 with O2 saturation 96% Labs revealed WBC of 22.7, improved from 23.7 yesterday, hemoglobin 11.4, platelet count of 238, sodium 138, potassium 4.1, BUNs/creatinine 18/0.76 and blood glucose of 113 -patient presented hospital with sepsis in this patient did have fever tachycardia source is acute ruptured appendicitis and peritonitis and will need to cover for enteric gram-negative to be the likely pathogen less likely gram- positive kike -penicillin allergy that will limit the number of antibiotics safe to use -patient repeat CT abdominal pelvis did shows diverticulitis with multiple foci of air and contained leak -patient white count slightly down today will monitor closely; continue with cefepime and Flagyl we will repeat CBC with a.m. lab 02/03/2024 Patient is seen and evaluated resting comfortably in bed; continues to report uncontrolled pain; reports his Dilaudid has been changed; ostomy not producing at this time Vital signs are reviewed and remained stable Lab review shows improved white blood count 16.3 hemoglobin of 9.6 and platelet count of 268, sodium 136, potassium 3.8, BUNs/creatinine of 12/0.5, phosphorus is low at 1.9 magnesium stable at 1.8 -we will supplement electrolytes and continue to monitor e will supplement electrolytes and continue to monitor --Surgery recommending to advance diet as tolerated Objective - Vital Signs Vital signs: Vital Signs Temp 97.4 F L 02/03/24 08:36 Pulse 74 02/03/24 08:36 Resp 16 02/03/24 08:36 BP 108/65 02/03/24 08:36 Pulse Ox 98 02/03/24 08:36 FiO2 Intake & Output 02/02/24 02/03/24 02/03/24 18:59 06:59 18:59 Intake Total 3681 0 Output Total 1285 850 375 Balance 8871 -313 -375 Intake: IV 20 Invasive Line 4 10 Invasive Line 6 10 Intake, IV Titration 3661 Amount Amino Acid 5%-D20w+Lytes* 1000 E* 1,000 ml @ 90 mls/hr IV .BY DURATION [facility] Rx#: [id number] Cefepime 2 gm In Sodium 200 Chloride 0.9% 100 ml @ 25 mls/hr IVPB Q8HR [facility] Rx# :[id number] Magnesium Sulfate-D5w Pmx 100 1 gm In Dextrose/Water 1 100ml.bag @ 100 mls/hr IVPB ONCE ONE Rx#: [id number] Mvi, Adult No.4 with Vit 1011 K 10 ml Trace (Conc-1Ml/ Dose) 1 ml In Amino Acid 5%-D20w+Lytes*E* 1,000 ml @ 90 mls/hr IV .BY DURATION [facility] Rx#: [id number] Sodium Chloride 0.9% 1, 900 000 ml @ 50 mls/hr IV . Q20H [facility] Rx#:[id number] Sodium Phosphate 15 mmol 250 In Dextrose 5% in Water 250 ml @ 127.5 mls/hr IVPB ONCE ONE Rx#: [id number] metroNIDAZOLE-NS PMX 500 200 mg In Saline 1 100ml.bag @ 100 mls/hr IVPB Q6HR [facility] Rx#:[id number] Oral 0 Output: Urine 1125 700 375 Uretheral (Michel) 1125 375 Stool 160 150 Other: Voiding Method Indwelling Catheter Indwelling Catheter Indwelling Catheter - Exam GENERAL: The patient is alert and oriented x3, not in any acute distress. Well developed, well nourished. HEENT: Pupils are round and equally reacting to light. EOMI. No scleral icterus. No conjunctival pallor. Normocephalic, atraumatic. No pharyngeal erythema. No thyromegaly. CARDIOVASCULAR: S1 and S2 present. No murmurs, rubs, or gallops. PULMONARY: Chest is clear to auscultation, no wheezing or crackles. ABDOMEN: Soft, RUQ abdominal pain, nondistended, normoactive bowel sounds. No palpable organomegaly. MUSCULOSKELETAL: No joint swelling or deformity. EXTREMITIES: No cyanosis, clubbing, or pedal edema. NEUROLOGICAL: Gross neurological examination did not reveal any focal deficits. SKIN: No rashes. - Labs CBC & Chem 7: 02/03/24 08:19 02/03/24 08:19 Labs: Abnormal Lab Results - Last 24 Hours (Table) 02/02/24 02/02/24 02/03/24 Range/Units 11:47 20:18 00:04 WBC (3.8-10.6) k/uL RBC (4.30-5.90) m/uL Hgb (13.0-17.5) gm/dL Hct (39.0-53.0) % MCV (80.0-100.0) fL MCHC (31.0-37.0) g/dL Neutrophils # (1.3-7.7) k/uL Lymphocytes # (1.0-4.8) k/uL Sodium (137-145) mmol/L Chloride (98-107) mmol/L Creatinine (0.66-1.25) mg/dL Glucose (74-99) mg/dL POC Glucose (mg/dL) 120 H 119 H 113 H (70-110) mg/dL Calcium (8.4-10.2) mg/dL Phosphorus (2.5-4.5) mg/dL Total Protein (6.3-8.2) g/dL Albumin (3.5-5.0) g/dL 02/03/24 02/03/24 02/03/24 Range/Units 04:12 08:02 08:19 WBC (3.8-10.6) k/uL RBC (4.30-5.90) m/uL Hgb (13.0-17.5) gm/dL Hct (39.0-53.0) % MCV (80.0-100.0) fL MCHC (31.0-37.0) g/dL Neutrophils # (1.3-7.7) k/uL Lymphocytes # (1.0-4.8) k/uL Sodium (137-145) mmol/L Chloride (98-107) mmol/L Creatinine (0.66-1.25) mg/dL Glucose (74-99) mg/dL POC Glucose (mg/dL) 156 H 121 H (70-110) mg/dL Calcium (8.4-10.2) mg/dL Phosphorus 1.9 L (2.5-4.5) mg/dL Total Protein (6.3-8.2) g/dL Albumin (3.5-5.0) g/dL 02/03/24 02/03/24 Range/Units 08:19 08:19 WBC 16.3 H (3.8-10.6) k/uL RBC 3.12 L (4.30-5.90) m/uL Hgb 9.6 L D (13.0-17.5) gm/dL Hct 31.4 L (39.0-53.0) % MCV 100.6 H (80.0-100.0) fL MCHC 30.7 L (31.0-37.0) g/dL Neutrophils # 14.3 H (1.3-7.7) k/uL Lymphocytes # 0.7 L (1.0-4.8) k/uL Sodium 136 L (137-145) mmol/L Chloride 109 H (98-107) mmol/L Creatinine 0.50 L (0.66-1.25) mg/dL Glucose 112 H (74-99) mg/dL POC Glucose (mg/dL) (70-110) mg/dL Calcium 6.8 L (8.4-10.2) mg/dL Phosphorus (2.5-4.5) mg/dL Total Protein 4.0 L (6.3-8.2) g/dL Albumin 1.7 L (3.5-5.0) g/dL Microbiology - Last 24 Hours (Table) 01/31/24 20:45 Gram Stain - Final Other - Other Wound Culture - Final Hamida albicans Assessment and Plan Assessment: Acute diverticulitis with perforation and localized abscess pending surgical intervention exploratory laporotomy Sepsis secondary to intra-abdominal infection continues on IV antibiotics per ID Acute kidney injury prerenal due to hypotension and dehydration. Proving Metabolic acidosis treated with bicarb drip which has been discontinued at this time hypophosphatemia will be supplemented and repeat labs in the morning Diabetes mellitus type 2 continues on sliding scale insulin every 4 hours as patient is NPO. Chronic back pain with degenerative disease of lumbar spine, was evaluated by orthopedics recommending conservative management at this time with pain medication, ice. History of hypertension currently normotensive chronic pain syndrome Hx of coronary artery disease with prior PCI. Anxiety maintained on xanax scheduled which has been resumed and patients mood has improved. GI prophylaxis protonix DVT prophylaxis Subcu heparin Full Code
[2024-02-03 20:49] LABS: Glucose,Whole Blood 154 mg/dL (70-110)
[2024-02-04 00:05] LABS: Glucose,Whole Blood 154 mg/dL (70-110)
[2024-02-04 04:09] LABS: Glucose,Whole Blood 158 mg/dL (70-110)
[2024-02-04 07:59] LABS: Glucose,Whole Blood 148 mg/dL (70-110)
[2024-02-04 09:24] LABS: ALT 9 U/L (4-49); AST 28 U/L (17-59); African American GFR (CKD) >90 (>60 ml/min/1.73 sqM); Albumin 1.7 g/dL (3.5-5.0); Alkaline Phosphatase 62 U/L (38-126); Anion Gap 0 mmol/L; Blood Urea Nitrogen 9 mg/dL (9-20); Calcium 6.7 mg/dL (8.4-10.2); Carbon Dioxide 26 mmol/L (22-30); Chloride 109 mmol/L (98-107); Glucose 140 mg/dL (74-99); Magnesium 1.6 mg/dL (1.6-2.3); Non-African American GFR(CKD) >90 (>60 ml/min/1.73 sqM); Phosphorus 1.8 mg/dL (2.5-4.5); Sodium 135 mmol/L (137-145); Total Bilirubin 0.3 mg/dL (0.2-1.3); Total Protein 4.2 g/dL (6.3-8.2)
[2024-02-04 09:32] LABS: HCT 30.7 % (39.0-53.0); MCH 31.2 pg (25.0-35.0); MCHC 32.5 g/dL (31.0-37.0); MCV 96.1 fL (80.0-100.0); Mean Platelet Volume 10.3; Platelet Count 199 k/uL (150-450); RDW 14.1 % (11.5-15.5); WBC 15.7 k/uL (3.8-10.6)
[2024-02-04] MEDS ORDERED: Phosphorus Replacement Protoco 1 EACH MISC MISCELLANE PRN (09:51)
--- NOTE | 2024-02-04 09:54 | P.PN ---
Subjective 53-year-old gentleman past medical history significant for chronic back pain, history of hypertension, history of diabetes mellitus presented to the emergency department with complaints of acute onset of abdominal pain on top of chronic back pain. Patient states symptom onset was 24 hours prior to presentation. Patient said he has a progressive decrease in appetite and had vomited a few times before coming in. Patient said he had 4 small stools however abdominal pain persisted. Patient was sent as a transfer from an outside hospital due to concern for diverticulitis with perforation. General surgery team was contacted, patient was made n.p.o. consultation obtained from general surgery and infectious disease 02/02/2024 Patient is seen and evaluated in room at bedside; no specific complaints reported Vital signs are reviewed and temperature 98.4, pulse 82, respiration 18 and blood pressure 165/78 with O2 saturation 96% Labs revealed WBC of 22.7, improved from 23.7 yesterday, hemoglobin 11.4, platelet count of 238, sodium 138, potassium 4.1, BUNs/creatinine 18/0.76 and blood glucose of 113 -patient presented hospital with sepsis in this patient did have fever tachycardia source is acute ruptured appendicitis and peritonitis and will need to cover for enteric gram-negative to be the likely pathogen less likely gram-positive kike -penicillin allergy that will limit the number of antibiotics safe to use -patient repeat CT abdominal pelvis did shows diverticulitis with multiple foci of air and contained leak -patient white count slightly down today will monitor closely; continue with cefepime and Flagyl we will repeat CBC with a.m. lab 02/03/2024 Patient is seen and evaluated resting comfortably in bed; continues to report uncontrolled pain; reports his Dilaudid has been changed; ostomy not producing at this time Vital signs are reviewed and remained stable Lab review shows improved white blood count 16.3 hemoglobin of 9.6 and platelet count of 268, sodium 136, potassium 3.8, BUNs/creatinine of 12/0.5, phosphorus is low at 1.9 magnesium stable at 1.8 -we will supplement electrolytes and continue to monitor e will supplement electrolytes and continue to monitor --Surgery recommending to advance diet as tolerated 02/04/2024 Patient awake alert He has some abdominal pain tenderness, expected postoperatively, wound closed with wound VAC in place, left lower colostomy bag with small liquid brown stool. No vomiting, poor appetite He is on Dilaudid drip 0.2 and normal saline 50 mL/h Objective - Vital Signs Vital signs: Vital Signs Temp 98.0 F 02/04/24 04:00 Pulse 84 02/04/24 08:00 Resp 16 02/04/24 08:00 BP 139/88 02/04/24 08:00 Pulse Ox 94 L 02/04/24 08:00 FiO2 Intake & Output 02/03/24 02/04/24 02/04/24 18:59 06:59 18:59 Intake Total 360 240 0 Output Total 975 1700 Balance -615 -1460 0 Intake: Oral 360 240 0 Output: Urine 975 1550 Uretheral (Michel) 975 350 Stool 150 Other: Voiding Method Indwelling Catheter Indwelling Catheter - Exam GENERAL: The patient is alert and oriented x3, not in any acute distress. Well developed, well nourished. HEENT: Pupils are round and equally reacting to light. EOMI. No scleral icterus. No conjunctival pallor. Normocephalic, atraumatic. No pharyngeal erythema. No thyromegaly. CARDIOVASCULAR: S1 and S2 present. No murmurs, rubs, or gallops. PULMONARY: Chest is clear to auscultation, no wheezing , no crackles. - ABDOMEN: Soft, nontender, nondistended, normoactive bowel sounds. No palpable organomegaly. Left lower quadrant colostomy in place, vertical wound is closed with wound VAC in place MUSCULOSKELETAL: No joint swelling or deformity. EXTREMITIES: No cyanosis, clubbing, or pedal edema. NEUROLOGICAL: Gross neurological examination did not reveal any focal deficits. SKIN: No rashes. no petechiae. - Labs CBC & Chem 7: 02/04/24 08:17 02/04/24 08:17 Labs: Abnormal Lab Results - Last 24 Hours (Table) 02/03/24 02/03/24 02/03/24 Range/Units 11:17 15:55 20:48 WBC (3.8-10.6) k/uL RBC (4.30-5.90) m/uL Hgb (13.0-17.5) gm/dL Hct (39.0-53.0) % Sodium (137-145) mmol/L Chloride (98-107) mmol/L Creatinine (0.66-1.25) mg/dL Glucose (74-99) mg/dL POC Glucose (mg/dL) 160 H 141 H 154 H (70-110) mg/dL Calcium (8.4-10.2) mg/dL Phosphorus (2.5-4.5) mg/dL Total Protein (6.3-8.2) g/dL Albumin (3.5-5.0) g/dL 02/04/24 02/04/24 02/04/24 Range/Units 00:04 04:07 07:55 WBC (3.8-10.6) k/uL RBC (4.30-5.90) m/uL Hgb (13.0-17.5) gm/dL Hct (39.0-53.0) % Sodium (137-145) mmol/L Chloride (98-107) mmol/L Creatinine (0.66-1.25) mg/dL Glucose (74-99) mg/dL POC Glucose (mg/dL) 154 H 158 H 148 H (70-110) mg/dL Calcium (8.4-10.2) mg/dL Phosphorus (2.5-4.5) mg/dL Total Protein (6.3-8.2) g/dL Albumin (3.5-5.0) g/dL 02/04/24 02/04/24 Range/Units 08:17 08:17 WBC 15.7 H (3.8-10.6) k/uL RBC 3.20 L (4.30-5.90) m/uL Hgb 10.0 L (13.0-17.5) gm/dL Hct 30.7 L (39.0-53.0) % Sodium 135 L (137-145) mmol/L Chloride 109 H (98-107) mmol/L Creatinine 0.39 L (0.66-1.25) mg/dL Glucose 140 H (74-99) mg/dL POC Glucose (mg/dL) (70-110) mg/dL Calcium 6.7 L (8.4-10.2) mg/dL Phosphorus 1.8 L (2.5-4.5) mg/dL Total Protein 4.2 L (6.3-8.2) g/dL Albumin 1.7 L (3.5-5.0) g/dL Microbiology - Last 24 Hours (Table) 01/31/24 20:45 Anaerobic Culture - Preliminary Other - Other 01/31/24 20:45 Anaerobic Culture - Preliminary Other - Other 01/31/24 20:45 Gram Stain - Preliminary Other - Other Wound Culture - Preliminary Group D Enterococcus Hamida albicans Assessment and Plan Assessment: Acute diverticulitis with perforation and localized abscess s/p surgical intervention exploratory laporotomy, sigmoid resection and descending colostomy and drainage of intra-abdominal abscess on 01/30 Sepsis secondary to intra-abdominal infection Acute kidney injury prerenal due to hypotension and dehydration. 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 Anxiety maintained on xanax scheduled which has been resumed and patients mood has improved. Continue with antibiotics IV cefepime and Flagyl Continue with normal saline 50 mL/h Continue with pain medication Wound VAC in place General surgery following Patient evaluated by motor and generator assembler and infectious disease team Labs and medication were reviewed.. Continue same treatment. Continue with symptomatic treatment. Resume home medication. Monitor labs and vitals. DVT and GI prophylaxis. Further recommendations as per clinical course of the patient DVT prophylaxis: Subcutaneous heparin GI Prophylaxis: Ppi PT/OT: Pending Prognosis is guarded
[2024-02-04 10:08] LABS: Band Neutrophils % 2 %; Eosinophils # (M) 0.31 k/uL (0-0.7); Lymphocytes # (M) 0.94 k/uL (1.0-4.8); Monocytes # (M) 0.16 k/uL (0-1.0); Neutrophils % (M) 90 %; Nucleated Red Blood Cells 0 /100 WBC (0-0); Total Cells Counted 200
--- NOTE | 2024-02-04 11:03 | P.PN ---
Subjective patient is seen for follow-up for acute kidney injury. No significant complaints today. Renal function has improved with creatinine down to 0.39. Patient is maintained on TPN and IV fluids. Objective - Vital Signs Vital signs: Vital Signs Temp 98.0 F 02/04/24 04:00 Pulse 84 02/04/24 08:00 Resp 16 02/04/24 08:00 BP 139/88 02/04/24 08:00 Pulse Ox 94 L 02/04/24 08:00 FiO2 Intake & Output 02/03/24 02/04/24 02/04/24 18:59 06:59 18:59 Intake Total 360 240 0 Output Total 975 1700 350 Balance -615 -1460 -350 Intake: Oral 360 240 0 Output: Urine 975 1550 350 Uretheral (Michel) 975 350 350 Stool 150 Other: Voiding Method Indwelling Catheter Indwelling Catheter Indwelling Catheter - Exam patient is awake, comfortable, no acute distress Examination of the heart S1 and S2 Examination of the lungs decreased breath sounds at the bases Abdomen is soft nontender Examination of lower extremities shows no evidence of edema - Labs CBC & Chem 7: 02/04/24 08:17 02/04/24 08:17 Labs: Abnormal Lab Results - Last 24 Hours (Table) 02/03/24 02/03/24 02/03/24 Range/Units 11:17 15:55 20:48 WBC (3.8-10.6) k/uL RBC (4.30-5.90) m/uL Hgb (13.0-17.5) gm/dL Hct (39.0-53.0) % Neutrophils # (Manual) (1.3-7.7) k/uL Lymphocytes # (Manual) (1.0-4.8) k/uL Sodium (137-145) mmol/L Chloride (98-107) mmol/L Creatinine (0.66-1.25) mg/dL Glucose (74-99) mg/dL POC Glucose (mg/dL) 160 H 141 H 154 H (70-110) mg/dL Calcium (8.4-10.2) mg/dL Phosphorus (2.5-4.5) mg/dL Total Protein (6.3-8.2) g/dL Albumin (3.5-5.0) g/dL 05/02/04/24 02/04/24 Range/Units 00:04 04:07 07:55 WBC (3.8-10.6) k/uL RBC (4.30-5.90) m/uL Hgb (13.0-17.5) gm/dL Hct (39.0-53.0) % Neutrophils # (Manual) (1.3-7.7) k/uL Lymphocytes # (Manual) (1.0-4.8) k/uL Sodium (137-145) mmol/L Chloride (98-107) mmol/L Creatinine (0.66-1.25) mg/dL Glucose (74-99) mg/dL POC Glucose (mg/dL) 154 H 158 H 148 H (70-110) mg/dL Calcium (8.4-10.2) mg/dL Phosphorus (2.5-4.5) mg/dL Total Protein (6.3-8.2) g/dL Albumin (3.5-5.0) g/dL 02/04/24 02/04/24 Range/Units 08:17 08:17 WBC 15.7 H (3.8-10.6) k/uL RBC 3.20 L (4.30-5.90) m/uL Hgb 10.0 L (13.0-17.5) gm/dL Hct 30.7 L (39.0-53.0) % Neutrophils # (Manual) 14.40 H (1.3-7.7) k/uL Lymphocytes # (Manual) 0.94 L (1.0-4.8) k/uL Sodium 135 L (137-145) mmol/L Chloride 109 H (98-107) mmol/L Creatinine 0.39 L (0.66-1.25) mg/dL Glucose 140 H (74-99) mg/dL POC Glucose (mg/dL) (70-110) mg/dL Calcium 6.7 L (8.4-10.2) mg/dL Phosphorus 1.8 L (2.5-4.5) mg/dL Total Protein 4.2 L (6.3-8.2) g/dL Albumin 1.7 L (3.5-5.0) g/dL Microbiology - Last 24 Hours (Table) 01/31/24 20:45 Anaerobic Culture - Preliminary Other - Other 05/09/24 20:45 Anaerobic Culture - Preliminary Other - Other 01/31/24 20:45 Gram Stain - Preliminary Other - Other Wound Culture - Preliminary Group D Enterococcus Hamida albicans Assessment and Plan Assessment: 1. Acute kidney injury secondary to vasomotor nephropathy secondary to hypovolemia and hypotension. Creatinine peaked at 2.46 this admission - resolved at 0.39 today. No hydronephrosis noted on CAT scan. 2. Diverticulitis with perforation. Surgery following. Status post exploratory laparotomy with sigmoid resection January 31, 2024. Receiving TPN. 3. Metabolic acidosis secondary to acute kidney injury and IV fluids. Improved with bicarb drip. 4. Diabetes mellitus. 5. Coronary artery disease with cardiac stents. 6. Hypomagnesemia from poor intake. Replaced. Better. 7. Hypophosphatemia from poor intake. Replaced. Plan: DC IV fluids while TPN is running. Repeat labs in a.m.
[2024-02-04] MEDS: FUROSEMIDE 10 MG/ML 2 ML VIAL IV STA (11:14)
[2024-02-04] MEDS: MAGNESIUM SULFATE-D5W PMX 1 GM in DEXTROSE/WATER 1 100ML.BAG IVPB SCH (11:15)
[2024-02-04 11:58] LABS: Glucose,Whole Blood 149 mg/dL (70-110)
[2024-02-04] MEDS ORDERED: VANCOMYCIN IV PER PHARMACY 1 EACH MISC MISCELLANE PRN (12:33)
[2024-02-04] MEDS: SODIUM PHOSPHATE 30 MMOL in DEXTROSE 5% IN WATER 250 ML IVPB ONE (12:51)
[2024-02-04] MEDS: 1: MVI, ADULT NO.4 WITH VIT K 10 ML, TRACE (CONC-1ML/DOSE) 1 ML, SODIUM PHOSPHATE 15 MMO IV SCH (16:01)
[2024-02-04] MEDS: VANCOMYCIN 2,000 MG in SODIUM CHLORIDE 0.9% 500 ML 500 ML IVPB SCH (16:16)
[2024-02-04 16:20] LABS: Glucose,Whole Blood 122 mg/dL (70-110)
--- NOTE | 2024-02-04 19:50 | P.PN ---
Subjective Progress Note Date: 02/04/24 CHIEF COMPLAINT: Diverticulitis HISTORY OF PRESENT ILLNESS: The patient is a 53-year-old male status post Huntley's procedure for perforated sigmoid diverticulitis with peritonitis, 01/31/2024. He reports tolerating diet. His ostomy is working. His main concern includes back pain. He is trying to ambulate. He is on TPN. ROS: No reports of nausea and vomiting. No fevers or chills. No new chest pain. No productive sputum PHYSICAL EXAM: VITAL SIGNS: Reviewed CONSTITUTIONAL: Well developed and in no acute distress. EYES: Conjuctivae without sclera icterus. Extraocular movements grossly intact. HEAD, EARS, NOSE, THROAT: Moist buccal mucosa. Head is atraumatic, normocephalic. Hears conversational speech. No nasal drainage. RESPIRATORY: Non-labored respirations and equal bilateral excursions. CARDIOVASCULAR: Palpable 2+ radial pulses. ABDOMEN: Midline incisional wound VAC intact. Ostomy pink patent with stool and flatus. MUSCULOSKELETAL: No gross deformity of the lower extremities noted. No clubbing. No cyanosis. SKIN: Good skin turgor. Well perfused. NEUROLOGIC: Cranial nerves II through XII grossly intact. No focal or lateralizing signs. PSYCH: Appropriate affect. Alert and oriented to person, place and time. CLINICAL LABS: Reviewed. WBC down from over 23,000 to over 15,000. Hemoglobin stable. Creatinine down from 2.46-0.39. MICRO: Positive For Hamida and Enterococcus, group D ASSESSMENT: 1. Perforated sigmoid diverticulitis with peritonitis 2. Acute renal failure, resolved 3. Huntley's procedure with descending colostomy 4. Sepsis present on admission PLAN: 1. Antibiotic management per infectious disease including management of yeast. 2. Disposition pending physical therapy and Occupational Therapy for rehab management 3. Low fiber diet with dietitian consultation for management for diverticulitis 4. Will need outpatient antibiotics with management per infectious disease Objective - Vital Signs Vital signs: Vital Signs Temp 98.6 F 02/04/24 16:00 Pulse 96 02/04/24 16:00 Resp 14 02/04/24 16:00 BP 150/79 02/04/24 16:00 Pulse Ox 94 L 02/04/24 16:00 FiO2 Intake & Output 02/04/24 02/04/24 02/05/24 06:59 18:59 06:59 Intake Total 240 0 Output Total 1700 2400 Balance -1460 -2400 Weight 112 kg Intake: Oral 240 0 Output: Urine 1550 2400 Uretheral (Michel) 350 Stool 150 Other: Voiding Method Indwelling Catheter Indwelling Catheter - Labs CBC & Chem 7: 02/04/24 08:17 02/04/24 08:17 Labs: Abnormal Lab Results - Last 24 Hours (Table) 02/03/24 02/04/24 02/04/24 Range/Units 20:48 00:04 04:07 WBC (3.8-10.6) k/uL RBC (4.30-5.90) m/uL Hgb (13.0-17.5) gm/dL Hct (39.0-53.0) % Neutrophils # (Manual) (1.3-7.7) k/uL Lymphocytes # (Manual) (1.0-4.8) k/uL Sodium (137-145) mmol/L Chloride (98-107) mmol/L Creatinine (0.66-1.25) mg/dL Glucose (74-99) mg/dL POC Glucose (mg/dL) 154 H 154 H 158 H (70-110) mg/dL Calcium (8.4-10.2) mg/dL Phosphorus (2.5-4.5) mg/dL Total Protein (6.3-8.2) g/dL Albumin (3.5-5.0) g/dL 02/04/24 02/04/24 02/04/24 Range/Units 07:55 08:17 08:17 WBC 15.7 H (3.8-10.6) k/uL RBC 3.20 L (4.30-5.90) m/uL Hgb 10.0 L (13.0-17.5) gm/dL Hct 30.7 L (39.0-53.0) % Neutrophils # (Manual) 14.40 H (1.3-7.7) k/uL Lymphocytes # (Manual) 0.94 L (1.0-4.8) k/uL Sodium 135 L (137-145) mmol/L Chloride 109 H (98-107) mmol/L Creatinine 0.39 L (0.66-1.25) mg/dL Glucose 140 H (74-99) mg/dL POC Glucose (mg/dL) 148 H (70-110) mg/dL Calcium 6.7 L (8.4-10.2) mg/dL Phosphorus 1.8 L (2.5-4.5) mg/dL Total Protein 4.2 L (6.3-8.2) g/dL Albumin 1.7 L (3.5-5.0) g/dL 02/04/24 02/04/24 Range/Units 11:56 16:18 WBC (3.8-10.6) k/uL RBC (4.30-5.90) m/uL Hgb (13.0-17.5) gm/dL Hct (39.0-53.0) % Neutrophils # (Manual) (1.3-7.7) k/uL Lymphocytes # (Manual) (1.0-4.8) k/uL Sodium (137-145) mmol/L Chloride (98-107) mmol/L Creatinine (0.66-1.25) mg/dL Glucose (74-99) mg/dL POC Glucose (mg/dL) 149 H 122 H (70-110) mg/dL Calcium (8.4-10.2) mg/dL Phosphorus (2.5-4.5) mg/dL Total Protein (6.3-8.2) g/dL Albumin (3.5-5.0) g/dL Microbiology - Last 24 Hours (Table) 01/31/24 20:45 Anaerobic Culture - Preliminary Other - Other 01/31/24 20:45 Anaerobic Culture - Preliminary Other - Other 01/31/24 20:45 Gram Stain - Preliminary Other - Other Wound Culture - Preliminary Group D Enterococcus Hamida albicans
[2024-02-04 19:59] LABS: Glucose,Whole Blood 157 mg/dL (70-110)
[2024-02-04 23:54] LABS: Glucose,Whole Blood 168 mg/dL (70-110)
[2024-02-05 04:01] LABS: Glucose,Whole Blood 130 mg/dL (70-110)
[2024-02-05 05:53] LABS: Glucose,Whole Blood 142 mg/dL (70-110)
[2024-02-05 08:19] LABS: Glucose,Whole Blood 130 mg/dL (70-110)
--- NOTE | 2024-02-05 11:29 | P.PN ---
Subjective patient is seen for follow-up for acute kidney injury. No significant complaints today. Renal function has improved with creatinine down to 0.39. Patient is maintained on TPN and IV fluids. Objective - Vital Signs Vital signs: Vital Signs Temp 98.1 F 02/05/24 08:15 Pulse 79 02/05/24 08:15 Resp 16 02/05/24 08:15 BP 114/68 02/05/24 08:15 Pulse Ox 92 L 02/05/24 08:15 FiO2 Intake & Output 02/04/24 02/05/24 02/05/24 18:59 06:59 18:59 Intake Total 0 966 Output Total 2400 2100 Balance -2400 -1134 Weight 112 kg 123 kg Intake: Intake, IV Titration 966 Amount Mvi, Adult No.4 with Vit 966 K 10 ml Trace (Conc-1Ml/ Dose) 1 ml Sodium Phosphate 15 mmol Magnesium Sulfate gm 0.5 gm In Amino Acid 5%-D20w+ Lytes*E* 1,000 ml @ 90 mls/hr IV .BY DURATION [facility] Rx#:[id number] Oral 0 Output: Urine 2400 1200 Stool 900 Other: Voiding Method Indwelling Catheter Indwelling Catheter Indwelling Catheter - Exam patient is awake, comfortable, no acute distress Examination of the heart S1 and S2 Examination of the lungs decreased breath sounds at the bases Abdomen is soft nontender Examination of lower extremities shows no evidence of edema - Labs CBC & Chem 7: 02/04/24 08:17 02/04/24 08:17 Labs: Abnormal Lab Results - Last 24 Hours (Table) 02/04/24 02/04/24 02/04/24 Range/Units 11:56 16:18 19:57 POC Glucose (mg/dL) 149 H 122 H 157 H (70-110) mg/dL 02/04/24 02/05/24 02/05/24 Range/Units 23:53 04:00 05:52 POC Glucose (mg/dL) 168 H 130 H 142 H (70-110) mg/dL 02/05/24 Range/Units 08:12 POC Glucose (mg/dL) 130 H (70-110) mg/dL Microbiology - Last 24 Hours (Table) 01/31/24 20:45 Gram Stain - Final Other - Other Wound Culture - Final Enterococcus faecium VRE Hamida albicans Hamida sp,not albicans/galbr 01/31/24 20:45 Anaerobic Culture - Final Other - Other 01/31/24 20:45 Anaerobic Culture - Final Other - Other Assessment and Plan Assessment: 1. Acute kidney injury secondary to vasomotor nephropathy secondary to hypovolemia and hypotension. Creatinine peaked at 2.46 this admission - resolved at 0.39 today. No hydronephrosis noted on CAT scan. 2. Diverticulitis with perforation. Surgery following. Status post exploratory laparotomy with sigmoid resection January 31, 2024. Receiving TPN. 3. Metabolic acidosis secondary to acute kidney injury and IV fluids. Improved with bicarb drip. 4. Diabetes mellitus. 5. Coronary artery disease with cardiac stents. 6. Hypomagnesemia from poor intake. Replaced. Better. 7. Hypophosphatemia from poor intake. Replaced. Plan: DC IV fluids while TPN is running. Repeat labs in a.m.
[2024-02-05 11:31] LABS: African American GFR (CKD) >90 (>60 ml/min/1.73 sqM); Anion Gap 3 mmol/L; Blood Urea Nitrogen 8 mg/dL (9-20); Calcium 6.8 mg/dL (8.4-10.2); Carbon Dioxide 25 mmol/L (22-30); Chloride 105 mmol/L (98-107); Glucose 145 mg/dL (74-99); Non-African American GFR(CKD) >90 (>60 ml/min/1.73 sqM); Potassium 3.7 mmol/L (3.5-5.1); Sodium 133 mmol/L (137-145)
[2024-02-05 11:34] LABS: African American GFR (CKD) >90 (>60 ml/min/1.73 sqM); Non-African American GFR(CKD) >90 (>60 ml/min/1.73 sqM)
[2024-02-05 12:03] LABS: Glucose,Whole Blood 169 mg/dL (70-110)
[2024-02-05 14:54] LABS: Magnesium 1.5 mg/dL (1.6-2.3); Phosphorus 2.3 mg/dL (2.5-4.5)
--- NOTE | 2024-02-05 15:00 | P.PN ---
Subjective Progress Note Date: 02/03/24 Principal diagnosis: Reason for follow-up is perforated diverticulitis with sepsis on admission Patient is a 53-year-old male with past medical history significant for diabetes mellitus hypertension anxiety bipolar depression and brain surgery patient presented to hospital with abdominal pain and this patient has been diagnosed with the ruptured diverticulitis and sepsis for the patient was transferred to [facility]. Patient is status post Exploratory laparotomy with sigmoid resection for perforated mid sigmoid colon, Descending colostomy and drainage of 1600 open abdominal abscess procedure completed on 01/31/2024. On today's evaluation that is 02/03/2024, Patient is afebrile patient is currently on room air and denies having any shortness of breath, the patient denies any chest pain or cough, the patient denies any nausea vomiting abdominal pain has decreased in intensity no output in the colostomy bag. Patient white count is down to 16.3 creatinine is 0.50 Objective - Vital Signs Vital signs: Vital Signs Temp 97.4 F L 02/03/24 08:36 Pulse 74 02/03/24 08:36 Resp 16 02/03/24 08:36 BP 108/65 02/03/24 08:36 Pulse Ox 98 02/03/24 08:36 FiO2 Intake & Output 02/02/24 02/03/24 02/03/24 18:59 06:59 18:59 Intake Total 3681 0 Output Total 1285 850 375 Balance 2396 -850 -375 Intake: IV 20 Invasive Line 4 10 Invasive Line 6 10 Intake, IV Titration 3661 Amount Amino Acid 5%-D20w+Lytes* 1000 E* 1,000 ml @ 90 mls/hr IV .BY DURATION [facility] Rx#: [id number] Cefepime 2 gm In Sodium 200 Chloride 0.9% 100 ml @ 25 mls/hr IVPB Q8HR [facility] Rx# :[id number] Magnesium Sulfate-D5w Pmx 100 1 gm In Dextrose/Water 1 100ml.bag @ 100 mls/hr IVPB ONCE ONE Rx#: [id number] Mvi, Adult No.4 with Vit 1011 K 10 ml Trace (Conc-1Ml/ Dose) 1 ml In Amino Acid 5%-D20w+Lytes*E* 1,000 ml @ 90 mls/hr IV .BY DURATION [facility] Rx#: [id number] Sodium Chloride 0.9% 1, 900 000 ml @ 50 mls/hr IV . Q20H [facility] Rx#:[id number] Sodium Phosphate 15 mmol 250 In Dextrose 5% in Water 250 ml @ 127.5 mls/hr IVPB ONCE ONE Rx#: [id number] metroNIDAZOLE-NS PMX 500 200 mg In Saline 1 100ml.bag @ 100 mls/hr IVPB Q6HR [facility] Rx#:[id number] Oral 0 Output: Urine 1125 700 375 Uretheral (Michel) 1125 375 Stool 160 150 Other: Voiding Method Indwelling Catheter Indwelling Catheter Indwelling Catheter - Exam GENERAL DESCRIPTION: Middle-age male lying in bed in no distress RESPIRATORY SYSTEM: Unlabored breathing , decreased breath sounds at bases HEART: S1 S2 regular rate and rhythm , ABDOMEN: Soft , mild tenderness EXTREMITIES: No edema feet - Labs CBC & Chem 7: 02/04/24 08:17 02/05/24 09:59 Labs: Abnormal Lab Results - Last 24 Hours (Table) 02/02/24 02/02/24 02/03/24 Range/Units 11:47 20:18 00:04 WBC (3.8-10.6) k/uL RBC (4.30-5.90) m/uL Hgb (13.0-17.5) gm/dL Hct (39.0-53.0) % MCV (80.0-100.0) fL MCHC (31.0-37.0) g/dL Neutrophils # (1.3-7.7) k/uL Lymphocytes # (1.0-4.8) k/uL Sodium (137-145) mmol/L Chloride (98-107) mmol/L Creatinine (0.66-1.25) mg/dL Glucose (74-99) mg/dL POC Glucose (mg/dL) 120 H 119 H 113 H (70-110) mg/dL Calcium (8.4-10.2) mg/dL Phosphorus (2.5-4.5) mg/dL Total Protein (6.3-8.2) g/dL Albumin (3.5-5.0) g/dL 02/03/24 02/03/24 02/03/24 Range/Units 04:12 08:02 08:19 WBC (3.8-10.6) k/uL RBC (4.30-5.90) m/uL Hgb (13.0-17.5) gm/dL Hct (39.0-53.0) % MCV (80.0-100.0) fL MCHC (31.0-37.0) g/dL Neutrophils # (1.3-7.7) k/uL Lymphocytes # (1.0-4.8) k/uL Sodium (137-145) mmol/L Chloride (98-107) mmol/L Creatinine (0.66-1.25) mg/dL Glucose (74-99) mg/dL POC Glucose (mg/dL) 156 H 121 H (70-110) mg/dL Calcium (8.4-10.2) mg/dL Phosphorus 1.9 L (2.5-4.5) mg/dL Total Protein (6.3-8.2) g/dL Albumin (3.5-5.0) g/dL 02/03/24 02/03/24 Range/Units 08:19 08:19 WBC 16.3 H (3.8-10.6) k/uL RBC 3.12 L (4.30-5.90) m/uL Hgb 9.6 L D (13.0-17.5) gm/dL Hct 31.4 L (39.0-53.0) % MCV 100.6 H (80.0-100.0) fL MCHC 30.7 L (31.0-37.0) g/dL Neutrophils # 14.3 H (1.3-7.7) k/uL Lymphocytes # 0.7 L (1.0-4.8) k/uL Sodium 136 L (137-145) mmol/L Chloride 109 H (98-107) mmol/L Creatinine 0.50 L (0.66-1.25) mg/dL Glucose 112 H (74-99) mg/dL POC Glucose (mg/dL) (70-110) mg/dL Calcium 6.8 L (8.4-10.2) mg/dL Phosphorus (2.5-4.5) mg/dL Total Protein 4.0 L (6.3-8.2) g/dL Albumin 1.7 L (3.5-5.0) g/dL Microbiology - Last 24 Hours (Table) 01/31/24 20:45 Gram Stain - Final Other - Other Wound Culture - Final Hamida albicans Assessment and Plan (1) Penicillin allergy Current Visit: Yes Status: Acute Code(s): Z88.0 - ALLERGY STATUS TO PENICILLIN SNOMED Code(s): 28085716 (2) Perforation of sigmoid colon due to diverticulitis Current Visit: Yes Status: Acute Code(s): K57.20 - DVTRCLI OF LG INT W PERFORATION AND ABSCESS W/O BLEEDING SNOMED Code(s): 8371533457798225 (3) Peritonitis Current Visit: Yes Status: Acute Code(s): K65.9 - PERITONITIS, UNSPECIFIED SNOMED Code(s): 16440430 Plan: 1patient presented hospital with sepsis in this patient did have fever tachycardia source is acute ruptured appendicitis and peritonitis and will need to cover for enteric gram-negative to be the likely pathogen less likely gram- positive kike 2-penicillin allergy that will limit the number of antibiotics safe to use 3-patient repeat CT abdominal pelvis did shows diverticulitis with multiple foci of air and contained leak,patient is status post sigmoid colectomy descending colostomy and drainage of abdominal abscess cultures pending 5-patient white count is trending down and continue with cefepime and Flagyl while waiting for the culture to finalize Dictation was produced using [employer] dictation software. please excuse any grammatical, word or spelling errors. Time with Patient: Less than 30
--- NOTE | 2024-02-05 15:01 | P.PN ---
Subjective Progress Note Date: 02/04/24 Principal diagnosis: Reason for follow-up is perforated diverticulitis with sepsis on admission Patient is a 53-year-old male with past medical history significant for diabetes mellitus hypertension anxiety bipolar depression and brain surgery patient presented to hospital with abdominal pain and this patient has been diagnosed with the ruptured diverticulitis and sepsis for the patient was transferred to [facility]. Patient is status post Exploratory laparotomy with sigmoid resection for perforated mid sigmoid colon, Descending colostomy and drainage of 1600 open abdominal abscess procedure completed on 01/31/2024. On today's evaluation that is 02/04/2024, patient has been afebrile, patient is breathing comfortably and is currently on room air, patient denies having any significant cough no chest pain shortness of breath, patient denies nausea vomit ing abdominal pain is currently controlled with the medication did have output in his colostomy bag. Patient white count is 15.7 creatinine 0.39 abdominal cultures growing Enterococcus Objective - Vital Signs Vital signs: Vital Signs Temp 98.0 F 02/04/24 04:00 Pulse 77 02/04/24 12:00 Resp 16 02/04/24 12:00 BP 129/76 02/04/24 12:00 Pulse Ox 94 L 02/04/24 12:00 FiO2 Intake & Output 02/03/24 02/04/24 02/04/24 18:59 06:59 18:59 Intake Total 360 240 0 Output Total 975 1700 350 Balance -615 -1460 -350 Intake: Oral 360 240 0 Output: Urine 975 1550 350 Uretheral (Michel) 975 350 350 Stool 150 Other: Voiding Method Indwelling Catheter Indwelling Catheter Indwelling Catheter - Exam GENERAL DESCRIPTION: Middle-age male lying in bed in no distress RESPIRATORY SYSTEM: Unlabored breathing , decreased breath sounds at bases HEART: S1 S2 regular rate and rhythm , ABDOMEN: Soft , mild tenderness EXTREMITIES: No edema feet - Labs CBC & Chem 7: 02/04/24 08:17 02/05/24 09:59 Labs: Abnormal Lab Results - Last 24 Hours (Table) 02/03/24 02/03/24 02/04/24 Range/Units 15:55 20:48 00:04 WBC (3.8-10.6) k/uL RBC (4.30-5.90) m/uL Hgb (13.0-17.5) gm/dL Hct (39.0-53.0) % Neutrophils # (Manual) (1.3-7.7) k/uL Lymphocytes # (Manual) (1.0-4.8) k/uL Sodium (137-145) mmol/L Chloride (98-107) mmol/L Creatinine (0.66-1.25) mg/dL Glucose (74-99) mg/dL POC Glucose (mg/dL) 141 H 154 H 154 H (70-110) mg/dL Calcium (8.4-10.2) mg/dL Phosphorus (2.5-4.5) mg/dL Total Protein (6.3-8.2) g/dL Albumin (3.5-5.0) g/dL 02/04/24 02/04/24 02/04/24 Range/Units 04:07 07:55 08:17 WBC (3.8-10.6) k/uL RBC (4.30-5.90) m/uL Hgb (13.0-17.5) gm/dL Hct (39.0-53.0) % Neutrophils # (Manual) (1.3-7.7) k/uL Lymphocytes # (Manual) (1.0-4.8) k/uL Sodium 135 L (137-145) mmol/L Chloride 109 H (98-107) mmol/L Creatinine 0.39 L (0.66-1.25) mg/dL Glucose 140 H (74-99) mg/dL POC Glucose (mg/dL) 158 H 148 H (70-110) mg/dL Calcium 6.7 L (8.4-10.2) mg/dL Phosphorus 1.8 L (2.5-4.5) mg/dL Total Protein 4.2 L (6.3-8.2) g/dL Albumin 1.7 L (3.5-5.0) g/dL 02/04/24 02/04/24 Range/Units 08:17 11:56 WBC 15.7 H (3.8-10.6) k/uL RBC 3.20 L (4.30-5.90) m/uL Hgb 10.0 L (13.0-17.5) gm/dL Hct 30.7 L (39.0-53.0) % Neutrophils # (Manual) 14.40 H (1.3-7.7) k/uL Lymphocytes # (Manual) 0.94 L (1.0-4.8) k/uL Sodium (137-145) mmol/L Chloride (98-107) mmol/L Creatinine (0.66-1.25) mg/dL Glucose (74-99) mg/dL POC Glucose (mg/dL) 149 H (70-110) mg/dL Calcium (8.4-10.2) mg/dL Phosphorus (2.5-4.5) mg/dL Total Protein (6.3-8.2) g/dL Albumin (3.5-5.0) g/dL Microbiology - Last 24 Hours (Table) 01/31/24 20:45 Anaerobic Culture - Preliminary Other - Other 01/31/24 20:45 Anaerobic Culture - Preliminary Other - Other 01/31/24 20:45 Gram Stain - Preliminary Other - Other Wound Culture - Preliminary Group D Enterococcus Hamida albicans Assessment and Plan (1) Penicillin allergy Current Visit: Yes Status: Acute Code(s): Z88.0 - ALLERGY STATUS TO PENICILLIN SNOMED Code(s): 38982447 (2) Perforation of sigmoid colon due to diverticulitis Current Visit: Yes Status: Acute Code(s): K57.20 - DVTRCLI OF LG INT W PERFORATION AND ABSCESS W/O BLEEDING SNOMED Code(s): 3021425754067488 (3) Peritonitis Current Visit: Yes Status: Acute Code(s): K65.9 - PERITONITIS, UNSPECIFIED SNOMED Code(s): 62006623 Plan: 1patient presented hospital with sepsis in this patient did have fever tachycardia source is acute ruptured appendicitis and peritonitis and will need to cover for enteric gram-negative to be the likely pathogen less likely gram- positive kike 2-penicillin allergy that will limit the number of antibiotics safe to use 3-patient repeat CT abdominal pelvis did shows diverticulitis with multiple foci of air and contained leak,patient is status post sigmoid colectomy descending colostomy and drainage of abdominal abscess cultures currently growing Enterococcus with sensitivities pending 5-patient to continue with cefepime and Flagyl we will add vancomycin to cover for Enterococcus because of his penicillin allergy Dictation was produced using [employer] dictation software. please excuse any grammatical, word or spelling errors. Time with Patient: Less than 30
--- NOTE | 2024-02-05 15:02 | P.PN ---
Subjective Progress Note Date: 02/05/24 Principal diagnosis: Reason for follow-up is perforated diverticulitis with sepsis on admission Patient is a 53-year-old male with past medical history significant for diabetes mellitus hypertension anxiety bipolar depression and brain surgery patient presented to hospital with abdominal pain and this patient has been diagnosed with the ruptured diverticulitis and sepsis for the patient was transferred to [facility]. Patient is status post Exploratory laparotomy with sigmoid resection for perforated mid sigmoid colon, Descending colostomy and drainage of 1600 open abdominal abscess procedure completed on 01/31/2024. On today's evaluation that is 02/05/2024,the patient denies any fever or any chills, patient is breathing comfortably on room air, the patient denies chest pain shortness of breath and no significant cough, patient abdominal pain has decreased in intensity denies any nausea vomiting did help in his colostomy bag. No CBC was done today his creatinine 0.41 abdominal cultures growing VRE Hamida albicans as well as none albicans Hamida Objective - Vital Signs Vital signs: Vital Signs Temp 98.2 F 02/05/24 11:33 Pulse 91 02/05/24 11:33 Resp 16 02/05/24 11:33 BP 142/80 02/05/24 11:33 Pulse Ox 93 L 02/05/24 11:33 FiO2 Intake & Output 02/04/24 02/05/24 02/05/24 18:59 06:59 18:59 Intake Total 0 1972 Output Total 2400 2100 400 Balance -2400 -128 -400 Weight 112 kg 123 kg Intake: Intake, IV Titration 1972 Amount Mvi, Adult No.4 with Vit 966 K 10 ml Trace (Conc-1Ml/ Dose) 1 ml Sodium Phosphate 15 mmol Magnesium Sulfate gm 0.5 gm In Amino Acid 5%-D20w+ Lytes*E* 1,000 ml @ 90 mls/hr IV .BY DURATION [facility] Rx#:[id number] Sodium Phosphate 15 mmol 1006 Magnesium Sulfate gm 0.5 gm In Amino Acid 5%-D20w+ Lytes*E* 1,000 ml @ 90 mls/hr IV .BY DURATION [facility] Rx#:[id number] Oral 0 Output: Urine 2400 1200 Stool 900 400 Other: Voiding Method Indwelling Catheter Indwelling Catheter Indwelling Catheter - Exam GENERAL DESCRIPTION: Middle-age male lying in bed in no distress RESPIRATORY SYSTEM: Unlabored breathing , decreased breath sounds at bases HEART: S1 S2 regular rate and rhythm , ABDOMEN: Soft , mild tenderness EXTREMITIES: No edema feet - Labs CBC & Chem 7: 02/04/24 08:17 02/05/24 09:59 Labs: Abnormal Lab Results - Last 24 Hours (Table) 02/04/24 02/04/24 02/04/24 Range/Units 16:18 19:57 23:53 Sodium (137-145) mmol/L BUN (9-20) mg/dL Creatinine (0.66-1.25) mg/dL Glucose (74-99) mg/dL POC Glucose (mg/dL) 122 H 157 H 168 H (70-110) mg/dL Calcium (8.4-10.2) mg/dL Phosphorus (2.5-4.5) mg/dL Magnesium (1.6-2.3) mg/dL 02/05/24 02/05/24 02/05/24 Range/Units 04:00 05:52 08:12 Sodium (137-145) mmol/L BUN (9-20) mg/dL Creatinine (0.66-1.25) mg/dL Glucose (74-99) mg/dL POC Glucose (mg/dL) 130 H 142 H 130 H (70-110) mg/dL Calcium (8.4-10.2) mg/dL Phosphorus (2.5-4.5) mg/dL Magnesium (1.6-2.3) mg/dL 02/05/24 02/05/24 02/05/24 Range/Units 09:59 09:59 09:59 Sodium 133 L (137-145) mmol/L BUN 8 L (9-20) mg/dL Creatinine 0.42 L 0.41 L (0.66-1.25) mg/dL Glucose 145 H (74-99) mg/dL POC Glucose (mg/dL) (70-110) mg/dL Calcium 6.8 L (8.4-10.2) mg/dL Phosphorus 2.3 L (2.5-4.5) mg/dL Magnesium 1.5 L (1.6-2.3) mg/dL 02/05/24 Range/Units 11:58 Sodium (137-145) mmol/L BUN (9-20) mg/dL Creatinine (0.66-1.25) mg/dL Glucose (74-99) mg/dL POC Glucose (mg/dL) 169 H (70-110) mg/dL Calcium (8.4-10.2) mg/dL Phosphorus (2.5-4.5) mg/dL Magnesium (1.6-2.3) mg/dL Microbiology - Last 24 Hours (Table) 01/31/24 20:45 Gram Stain - Final Other - Other Wound Culture - Final Enterococcus faecium VRE Hamida albicans Hamida sp,not albicans/galbr 01/31/24 20:45 Anaerobic Culture - Final Other - Other 01/31/24 20:45 Anaerobic Culture - Final Other - Other Assessment and Plan (1) Penicillin allergy Current Visit: Yes Status: Acute Code(s): Z88.0 - ALLERGY STATUS TO PENICILLIN SNOMED Code(s): 74194703 (2) Perforation of sigmoid colon due to diverticulitis Current Visit: Yes Status: Acute Code(s): K57.20 - DVTRCLI OF LG INT W PERFORATION AND ABSCESS W/O BLEEDING SNOMED Code(s): 1021777209059650 (3) Peritonitis Current Visit: Yes Status: Acute Code(s): K65.9 - PERITONITIS, UNSPECIFIED SNOMED Code(s): 32180694 Plan: 1patient presented hospital with sepsis in this patient did have fever tachycardia source is acute ruptured appendicitis and peritonitis and will need to cover for enteric gram-negative to be the likely pathogen less likely gram- positive kike 2-penicillin allergy that will limit the number of antibiotics safe to use 3-patient repeat CT abdominal pelvis did shows diverticulitis with multiple foci of air and contained leak,patient is status post sigmoid colectomy descending colostomy and drainage of abdominal abscess cultures currently growing VRE, Hamida albicans and none albicans Hamida 5-patient to continue with cefepime and Flagyl however we will discontinue vancomycin and start the patient on daptomycin and Eraxis to cover for the VRE and none albicans Hamida Dictation was produced using [employer] dictation software. please excuse any grammatical, word or spelling errors. Time with Patient: Less than 30
--- NOTE | 2024-02-05 15:10 | P.PN ---
Subjective Progress Note Date: 02/05/24 CHIEF COMPLAINT: Diverticulitis HISTORY OF PRESENT ILLNESS: Patient is postop day #5 status post exploratory with sigmoid resection for perforated mid sigmoid colon and descending colostomy. Patient reports his pain is controlled. He denies any nausea or vomiting. His ostomy is functioning. Oral intake is still decreased. He is also receiving TPN. Afebrile. Wound culture with Enterococcus faecium VRE and Hamida albicans. Infectious disease has added Eraxis for yeast. Afebrile. Sodium 133 creatinine 0.41 magnesium 1.5 PHYSICAL EXAM: VITAL SIGNS: Reviewed GENERAL: Well-developed in no acute distress. HEENT: No sclera icterus. Extraocular movements grossly intact. Moist buccal mucosa. Head is atraumatic, normocephalic. Hears conversational speech. No nasal drainage. NECK: Supple without lymphadenopathy. CHEST: Non-labored respirations and equal bilateral excursions. CARDIOVASCULAR: Palpable 2+ radial pulses. ABDOMEN: Soft. Nondistended. Prevena wound VAC clean dry and intact. Ostomy with liquidy stool. Stoma beefy red MUSCULOSKELETAL: No clubbing or cyanosis. NEUROLOGIC: No focal or lateralizing signs. Cranial nerves II through XII grossly intact. PSYCH: Appropriate affect. Alert and oriented to person, place and time. SKIN: Well perfused. Good skin turgor. ASSESSMENT: 1. Perforated complicated sigmoid diverticulitis with pelvic abscess 2. Sepsis present on admission due to perforated diverticulitis 3. Obesity due to excess calories, BMI 34.4 4. Chronic back pain 5. Diabetes type 2 [id number] 6. Hypertensive heart disease 7. Hyperlipidemia 8. Depressive disorder 9. Generalized anxiety disorder 10. Bipolar disorder 11. Severe protein calorie malnutrition 12. Hypomagnesemia PLAN: -Antibiotic management per infectious disease. They have added Eraxis for yeast -Continue low fiber diet -Discontinue Entereg -Continue TPN for nutrition support until oral intake increases -Replace magnesium -Possible discharge to ECF on -DVT prophylaxis subcu heparin and GI prophylaxis Protonix Physician Cash Office Worker note has been reviewed by physician. Signing provider agrees with the documented findings, assessment, and plan of care. Objective - Vital Signs Vital signs: Vital Signs Temp 98.2 F 02/05/24 11:33 Pulse 91 02/05/24 11:33 Resp 16 02/05/24 11:33 BP 142/80 02/05/24 11:33 Pulse Ox 93 L 02/05/24 11:33 FiO2 Intake & Output 02/04/24 02/05/24 02/05/24 18:59 06:59 18:59 Intake Total 0 1972 Output Total 2400 2100 400 Balance -2400 -128 -400 Weight 112 kg 123 kg Intake: Intake, IV Titration 1972 Amount Mvi, Adult No.4 with Vit 966 K 10 ml Trace (Conc-1Ml/ Dose) 1 ml Sodium Phosphate 15 mmol Magnesium Sulfate gm 0.5 gm In Amino Acid 5%-D20w+ Lytes*E* 1,000 ml @ 90 mls/hr IV .BY DURATION [facility] Rx#:[id number] Sodium Phosphate 15 mmol 1006 Magnesium Sulfate gm 0.5 gm In Amino Acid 5%-D20w+ Lytes*E* 1,000 ml @ 90 mls/hr IV .BY DURATION [facility] Rx#:[id number] Oral 0 Output: Urine 2400 1200 Stool 900 400 Other: Voiding Method Indwelling Catheter Indwelling Catheter Indwelling Catheter - Labs CBC & Chem 7: 02/04/24 08:17 02/05/24 09:59 Labs: Abnormal Lab Results - Last 24 Hours (Table) 02/04/24 02/04/24 02/04/24 Range/Units 16:18 19:57 23:53 Sodium (137-145) mmol/L BUN (9-20) mg/dL Creatinine (0.66-1.25) mg/dL Glucose (74-99) mg/dL POC Glucose (mg/dL) 122 H 157 H 168 H (70-110) mg/dL Calcium (8.4-10.2) mg/dL Phosphorus (2.5-4.5) mg/dL Magnesium (1.6-2.3) mg/dL 02/05/24 02/05/24 02/05/24 Range/Units 04:00 05:52 08:12 Sodium (137-145) mmol/L BUN (9-20) mg/dL Creatinine (0.66-1.25) mg/dL Glucose (74-99) mg/dL POC Glucose (mg/dL) 130 H 142 H 130 H (70-110) mg/dL Calcium (8.4-10.2) mg/dL Phosphorus (2.5-4.5) mg/dL Magnesium (1.6-2.3) mg/dL 02/05/24 02/05/24 02/05/24 Range/Units 09:59 09:59 09:59 Sodium 133 L (137-145) mmol/L BUN 8 L (9-20) mg/dL Creatinine 0.42 L 0.41 L (0.66-1.25) mg/dL Glucose 145 H (74-99) mg/dL POC Glucose (mg/dL) (70-110) mg/dL Calcium 6.8 L (8.4-10.2) mg/dL Phosphorus 2.3 L (2.5-4.5) mg/dL Magnesium 1.5 L (1.6-2.3) mg/dL 02/05/24 Range/Units 11:58 Sodium (137-145) mmol/L BUN (9-20) mg/dL Creatinine (0.66-1.25) mg/dL Glucose (74-99) mg/dL POC Glucose (mg/dL) 169 H (70-110) mg/dL Calcium (8.4-10.2) mg/dL Phosphorus (2.5-4.5) mg/dL Magnesium (1.6-2.3) mg/dL Microbiology - Last 24 Hours (Table) 01/31/24 20:45 Gram Stain - Final Other - Other Wound Culture - Final Enterococcus faecium VRE Hamida albicans Hamida sp,not albicans/galbr 01/31/24 20:45 Anaerobic Culture - Final Other - Other 01/31/24 20:45 Anaerobic Culture - Final Other - Other
[2024-02-05] MEDS: MAGNESIUM SULFATE-D5W PMX 1 GM in DEXTROSE/WATER 1 100ML.BAG IVPB SCH (15:45)
[2024-02-05] MEDS: SODIUM PHOSPHATE 15 MMOL in DEXTROSE 5% IN WATER 250 ML IVPB ONE (15:49)
[2024-02-05 16:11] LABS: Glucose,Whole Blood 190 mg/dL (70-110)
[2024-02-05] MEDS: ANIDULAFUNGIN 200 MG in SODIUM CHLORIDE 0.9% 200 ML IVPB ONE (16:30)
[2024-02-05 20:23] LABS: Glucose,Whole Blood 189 mg/dL (70-110)
--- NOTE | 2024-02-05 21:38 | P.PN ---
Subjective 53-year-old gentleman past medical history significant for chronic back pain, history of hypertension, history of diabetes mellitus presented to the emergency department with complaints of acute onset of abdominal pain on top of chronic back pain. Patient states symptom onset was 24 hours prior to presentation. Patient said he has a progressive decrease in appetite and had vomited a few times before coming in. Patient said he had 4 small stools however abdominal pain persisted. Patient was sent as a transfer from an outside hospital due to concern for diverticulitis with perforation. General surgery team was contacted, patient was made n.p.o. consultation obtained from general surgery and infectious disease 02/02/2024 Patient is seen and evaluated in room at bedside; no specific complaints reported Vital signs are reviewed and temperature 98.4, pulse 82, respiration 18 and blood pressure 165/78 with O2 saturation 96% Labs revealed WBC of 22.7, improved from 23.7 yesterday, hemoglobin 11.4, platelet count of 238, sodium 138, potassium 4.1, BUNs/creatinine 18/0.76 and blood glucose of 113 -patient presented hospital with sepsis in this patient did have fever tachycardia source is acute ruptured appendicitis and peritonitis and will need to cover for enteric gram-negative to be the likely pathogen less likely gram-positive kike -penicillin allergy that will limit the number of antibiotics safe to use -patient repeat CT abdominal pelvis did shows diverticulitis with multiple foci of air and contained leak -patient white count slightly down today will monitor closely; continue with cefepime and Flagyl we will repeat CBC with a.m. lab 02/03/2024 Patient is seen and evaluated resting comfortably in bed; continues to report uncontrolled pain; reports his Dilaudid has been changed; ostomy not producing at this time Vital signs are reviewed and remained stable Lab review shows improved white blood count 16.3 hemoglobin of 9.6 and platelet count of 268, sodium 136, potassium 3.8, BUNs/creatinine of 12/0.5, phosphorus is low at 1.9 magnesium stable at 1.8 -we will supplement electrolytes and continue to monitor e will supplement electrolytes and continue to monitor --Surgery recommending to advance diet as tolerated 02/04/2024 Patient awake alert He has some abdominal pain tenderness, expected postoperatively, wound closed with wound VAC in place, left lower colostomy bag with small liquid brown stool. No vomiting, poor appetite He is on Dilaudid drip 0.2 and normal saline 50 mL/h 02/05/2024 Patient awake alert He is in distress due to abdominal pain, wound VAC in place He is still on TPN Eraxis added to IV Flagyl and cefepime. Midline is requested Plan for ECF on Objective - Vital Signs Vital signs: Vital Signs Temp 98.2 F 02/05/24 11:33 Pulse 91 02/05/24 11:33 Resp 16 02/05/24 11:33 BP 142/80 02/05/24 11:33 Pulse Ox 93 L 02/05/24 11:33 FiO2 Intake & Output 02/04/24 02/05/24 02/05/24 18:59 06:59 18:59 Intake Total 0 1971 Output Total 2400 2100 400 Balance -2400 -128 -400 Weight 112 kg 123 kg Intake: Intake, IV Titration 1971 Amount Mvi, Adult No.4 with Vit 966 K 10 ml Trace (Conc-1Ml/ Dose) 1 ml Sodium Phosphate 15 mmol Magnesium Sulfate gm 0.5 gm In Amino Acid 5%-D20w+ Lytes*E* 1,000 ml @ 90 mls/hr IV .BY DURATION GREGORIO Rx#:[id number] Sodium Phosphate 15 mmol 1006 Magnesium Sulfate gm 0.5 gm In Amino Acid 5%-D20w+ Lytes*E* 1,000 ml @ 90 mls/hr IV .BY DURATION GREGORIO Rx#:[id number] Oral 0 Output: Urine 2400 1200 Stool 900 400 Other: Voiding Method Indwelling Catheter Indwelling Catheter Indwelling Catheter - Exam GENERAL: The patient is alert and oriented x3, not in any acute distress. Well developed, well nourished. HEENT: Pupils are round and equally reacting to light. EOMI. No scleral icterus. No conjunctival pallor. Normocephalic, atraumatic. No pharyngeal erythema. No thyromegaly. CARDIOVASCULAR: S1 and S2 present. No murmurs, rubs, or gallops. PULMONARY: Chest is clear to auscultation, no wheezing , no crackles. - ABDOMEN: Soft, nontender, nondistended, normoactive bowel sounds. No palpable organomegaly. Left lower quadrant colostomy in place, vertical wound is closed with wound VAC in place MUSCULOSKELETAL: No joint swelling or deformity. EXTREMITIES: No cyanosis, clubbing, or pedal edema. NEUROLOGICAL: Gross neurological examination did not reveal any focal deficits. SKIN: No rashes. no petechiae. - Labs CBC & Chem 7: 02/04/24 08:17 02/05/24 09:59 Labs: Abnormal Lab Results - Last 24 Hours (Table) 02/04/24 02/04/24 02/04/24 Range/Units 16:18 19:57 23:53 Sodium (137-145) mmol/L BUN (9-20) mg/dL Creatinine (0.66-1.25) mg/dL Glucose (74-99) mg/dL POC Glucose (mg/dL) 122 H 157 H 168 H (70-110) mg/dL Calcium (8.4-10.2) mg/dL 02/05/24 02/05/24 02/05/24 Range/Units 04:00 05:52 08:12 Sodium (137-145) mmol/L BUN (9-20) mg/dL Creatinine (0.66-1.25) mg/dL Glucose (74-99) mg/dL POC Glucose (mg/dL) 130 H 142 H 130 H (70-110) mg/dL Calcium (8.4-10.2) mg/dL 02/05/24 02/05/24 02/05/24 Range/Units 09:59 09:59 11:58 Sodium 133 L (137-145) mmol/L BUN 8 L (9-20) mg/dL Creatinine 0.42 L 0.41 L (0.66-1.25) mg/dL Glucose 145 H (74-99) mg/dL POC Glucose (mg/dL) 169 H (70-110) mg/dL Calcium 6.8 L (8.4-10.2) mg/dL Microbiology - Last 24 Hours (Table) 01/31/24 20:45 Gram Stain - Final Other - Other Wound Culture - Final Enterococcus faecium VRE Hamida albicans Hamida sp,not albicans/galbr 01/31/24 20:45 Anaerobic Culture - Final Other - Other 01/31/24 20:45 Anaerobic Culture - Final Other - Other Assessment and Plan Assessment: Acute diverticulitis with perforation and localized abscess s/p surgical intervention exploratory laporotomy, sigmoid resection and descending colostomy and drainage of intra-abdominal abscess on 01/30 Sepsis secondary to intra-abdominal infection Acute kidney injury prerenal due to hypotension and dehydration. 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 Anxiety maintained on xanax scheduled which has been resumed and patients mood has improved. Continue with antibiotics IV cefepime and Flagyl Continue with normal saline 50 mL/h Continue with pain medication Wound VAC in place General surgery following Patient evaluated by photographic aide and infectious disease team Labs and medication were reviewed.. Continue same treatment. Continue with symptomatic treatment. Resume home medication. Monitor labs and vitals. DVT and GI prophylaxis. Further recommendations as per clinical course of the patient DVT prophylaxis: Subcutaneous heparin GI Prophylaxis: Ppi PT/OT: Pending Prognosis is guarded
[2024-02-05] MEDS ORDERED: Magnesium Replacement Protocol 1 EACH MISC MISCELLANE PRN (21:40)
[2024-02-06 00:04] LABS: Glucose,Whole Blood 182 mg/dL (70-110)
[2024-02-06] MEDS: 1: MVI, ADULT NO.4 WITH VIT K 10 ML, TRACE (CONC-1ML/DOSE) 1 ML, SODIUM PHOSPHATE 15 MMO IV SCH (02:34)
[2024-02-06 04:17] LABS: Glucose,Whole Blood 144 mg/dL (70-110)
[2024-02-06 07:58] LABS: Glucose,Whole Blood 170 mg/dL (70-110)
--- NOTE | 2024-02-06 11:03 | P.PN ---
Subjective 53-year-old gentleman past medical history significant for chronic back pain, history of hypertension, history of diabetes mellitus presented to the emergency department with complaints of acute onset of abdominal pain on top of chronic back pain. Patient states symptom onset was 24 hours prior to presentation. Patient said he has a progressive decrease in appetite and had vomited a few times before coming in. Patient said he had 4 small stools however abdominal pain persisted. Patient was sent as a transfer from an outside hospital due to concern for diverticulitis with perforation. General surgery team was contacted, patient was made n.p.o. consultation obtained from general surgery and infectious disease 02/02/2024 Patient is seen and evaluated in room at bedside; no specific complaints reported Vital signs are reviewed and temperature 98.4, pulse 82, respiration 18 and blood pressure 165/78 with O2 saturation 96% Labs revealed WBC of 22.7, improved from 23.7 yesterday, hemoglobin 11.4, platelet count of 238, sodium 138, potassium 4.1, BUNs/creatinine 18/0.76 and blood glucose of 113 -patient presented hospital with sepsis in this patient did have fever tachycardia source is acute ruptured appendicitis and peritonitis and will need to cover for enteric gram-negative to be the likely pathogen less likely gram-positive kike -penicillin allergy that will limit the number of antibiotics safe to use -patient repeat CT abdominal pelvis did shows diverticulitis with multiple foci of air and contained leak -patient white count slightly down today will monitor closely; continue with cefepime and Flagyl we will repeat CBC with a.m. lab 02/03/2024 Patient is seen and evaluated resting comfortably in bed; continues to report uncontrolled pain; reports his Dilaudid has been changed; ostomy not producing at this time Vital signs are reviewed and remained stable Lab review shows improved white blood count 16.3 hemoglobin of 9.6 and platelet count of 268, sodium 136, potassium 3.8, BUNs/creatinine of 12/0.5, phosphorus is low at 1.9 magnesium stable at 1.8 -we will supplement electrolytes and continue to monitor e will supplement electrolytes and continue to monitor --Surgery recommending to advance diet as tolerated 02/04/2024 Patient awake alert He has some abdominal pain tenderness, expected postoperatively, wound closed with wound VAC in place, left lower colostomy bag with small liquid brown stool. No vomiting, poor appetite He is on Dilaudid drip 0.2 and normal saline 50 mL/h 02/05/2024 Patient awake alert He is in distress due to abdominal pain, wound VAC in place He is still on TPN Eraxis added to IV Flagyl and cefepime. Len is requested Plan for ECF on 02/06/2024 Patient abdominal pain is controlled today. He can tolerate some liquid diet with no vomiting He emptied his colostomy bag yesterday. This morning it has no or minimal discharge He remains on TPN Plan for midline Patient will benefit from ECF upon discharge. Currently on broad-spectrum antibiotic with cefepime, IV Flagyl, Eraxis and daptomycin, ID team on the case Objective - Vital Signs Vital signs: Vital Signs Temp 98.3 F 02/06/24 08:34 Pulse 74 02/06/24 08:34 Resp 16 02/06/24 08:34 BP 134/74 02/06/24 08:34 Pulse Ox 97 02/06/24 08:34 FiO2 Intake & Output 02/05/24 02/06/24 02/06/24 18:59 06:59 18:59 Output Total 0 4650 1025 Balance -0 -4650 -1025 Output: Urine 1650 4500 875 Stool 400 150 150 Other: Voiding Method Indwelling Catheter Indwelling Catheter Indwelling Catheter - Exam GENERAL: The patient is alert and oriented x3, not in any acute distress. Well developed, well nourished. HEENT: Pupils are round and equally reacting to light. EOMI. No scleral icterus. No conjunctival pallor. Normocephalic, atraumatic. No pharyngeal erythema. No thyromegaly. CARDIOVASCULAR: S1 and S2 present. No murmurs, rubs, or gallops. PULMONARY: Chest is clear to auscultation, no wheezing , no crackles. - ABDOMEN: Soft, nontender, nondistended, normoactive bowel sounds. No palpable organomegaly. Left lower quadrant colostomy in place, vertical wound is closed with wound VAC in place MUSCULOSKELETAL: No joint swelling or deformity. EXTREMITIES: No cyanosis, clubbing, or pedal edema. NEUROLOGICAL: Gross neurological examination did not reveal any focal deficits. SKIN: No rashes. no petechiae. - Labs CBC & Chem 7: 02/04/24 08:17 02/05/24 09:59 Labs: Abnormal Lab Results - Last 24 Hours (Table) 02/05/24 02/05/24 02/05/24 Range/Units 09:59 09:59 09:59 Sodium 133 L (137-145) mmol/L BUN 8 L (9-20) mg/dL Creatinine 0.42 L 0.41 L (0.66-1.25) mg/dL Glucose 145 H (74-99) mg/dL POC Glucose (mg/dL) (70-110) mg/dL Calcium 6.8 L (8.4-10.2) mg/dL Phosphorus 2.3 L (2.5-4.5) mg/dL Magnesium 1.5 L (1.6-2.3) mg/dL 02/05/24 02/05/24 02/05/24 Range/Units 11:58 16:09 20:21 Sodium (137-145) mmol/L BUN (9-20) mg/dL Creatinine (0.66-1.25) mg/dL Glucose (74-99) mg/dL POC Glucose (mg/dL) 169 H 190 H 189 H (70-110) mg/dL Calcium (8.4-10.2) mg/dL Phosphorus (2.5-4.5) mg/dL Magnesium (1.6-2.3) mg/dL 02/06/24 02/06/24 02/06/24 Range/Units 00:03 04:15 07:56 Sodium (137-145) mmol/L BUN (9-20) mg/dL Creatinine (0.66-1.25) mg/dL Glucose (74-99) mg/dL POC Glucose (mg/dL) 182 H 144 H 170 H (70-110) mg/dL Calcium (8.4-10.2) mg/dL Phosphorus (2.5-4.5) mg/dL Magnesium (1.6-2.3) mg/dL Assessment and Plan Assessment: Acute diverticulitis with perforation and localized abscess s/p surgical intervention exploratory laporotomy, sigmoid resection and descending colostomy and drainage of intra-abdominal abscess on 01/30 Sepsis secondary to intra-abdominal infection Acute kidney injury prerenal due to hypotension and dehydration. 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 Anxiety maintained on xanax scheduled which has been resumed and patients mood has improved. Continue with antibiotics IV cefepime and Flagyl Continue with normal saline 50 mL/h Continue with pain medication Wound VAC in place General surgery following Patient evaluated by pleating supervisor and infectious disease team Labs and medication were reviewed.. Continue same treatment. Continue with symptomatic treatment. Resume home medication. Monitor labs and vitals. DVT and GI prophylaxis. Further recommendations as per clinical course of the patient DVT prophylaxis: Subcutaneous heparin GI Prophylaxis: Ppi PT/OT: Pending Prognosis is guarded
[2024-02-06 11:28] LABS: Glucose,Whole Blood 167 mg/dL (70-110)
[2024-02-06 11:39] LABS: African American GFR (CKD) >90 (>60 ml/min/1.73 sqM); Anion Gap 0 mmol/L; Blood Urea Nitrogen 7 mg/dL (9-20); Calcium 6.5 mg/dL (8.4-10.2); Carbon Dioxide 30 mmol/L (22-30); Chloride 105 mmol/L (98-107); Glucose 151 mg/dL (74-99); Magnesium 1.7 mg/dL (1.6-2.3); Non-African American GFR(CKD) >90 (>60 ml/min/1.73 sqM); Phosphorus 2.7 mg/dL (2.5-4.5); Potassium 3.8 mmol/L (3.5-5.1); Sodium 135 mmol/L (137-145)
[2024-02-06 11:52] LABS: Basophils % (A) 0 %; Eosinophils # (A) 0.1 k/uL (0-0.7); Eosinophils % (A) 1 %; HCT 26.3 % (39.0-53.0); HGB 8.7 gm/dL (13.0-17.5); Lymphocytes # (A) 0.9 k/uL (1.0-4.8); Lymphocytes % (A) 7 %; MCH 31.6 pg (25.0-35.0); MCHC 33.1 g/dL (31.0-37.0); MCV 95.5 fL (80.0-100.0); Mean Platelet Volume 9.5; Monocytes # (A) 1.1 k/uL (0-1.0); Monocytes % (A) 9 %; Neutrophils # (A) 10.2 k/uL (1.3-7.7); Neutrophils % (A) 81 %; Platelet Count 351 k/uL (150-450); RBC 2.75 m/uL (4.30-5.90); RDW 13.8 % (11.5-15.5); WBC 12.6 k/uL (3.8-10.6)
[2024-02-06] MEDS: MAGNESIUM SULFATE-D5W PMX 1 GM in DEXTROSE/WATER 1 100ML.BAG IVPB SCH (13:53)
[2024-02-06 14:31] VITALS: BMI 37.8
[2024-02-06] MEDS: ANIDULAFUNGIN 100 MG in SODIUM CHLORIDE 0.9% 100 ML IVPB SCH (15:07)
--- NOTE | 2024-02-06 16:05 | P.PN ---
Subjective Progress Note Date: 02/06/24 CHIEF COMPLAINT: Diverticulitis HISTORY OF PRESENT ILLNESS: Patient is postop day #6 status post exploratory with sigmoid resection for perforated mid sigmoid colon and descending colostomy. Patient reports his pain is controlled. He denies any nausea or vomiting. His ostomy is functioning. Oral intake remains poor. Afebrile. WBC is down from 15.7-12.6 Hgb 8.7 magnesium 1.5 up to 1.7. Patient had ostomy nurse education today. Ostomy bag changed. PHYSICAL EXAM: VITAL SIGNS: Reviewed GENERAL: Well-developed in no acute distress. HEENT: No sclera icterus. Extraocular movements grossly intact. Moist buccal mucosa. Head is atraumatic, normocephalic. Hears conversational speech. No nasal drainage. NECK: Supple without lymphadenopathy. CHEST: Non-labored respirations and equal bilateral excursions. CARDIOVASCULAR: Palpable 2+ radial pulses. ABDOMEN: Soft. Nondistended. Prevena wound VAC clean dry and intact. Ostomy with liquidy stool. Stoma beefy red MUSCULOSKELETAL: No clubbing or cyanosis. NEUROLOGIC: No focal or lateralizing signs. Cranial nerves II through XII willian sly intact. PSYCH: Appropriate affect. Alert and oriented to person, place and time. SKIN: Well perfused. Good skin turgor. ASSESSMENT: 1. Perforated complicated sigmoid diverticulitis with pelvic abscess 2. Sepsis present on admission due to perforated diverticulitis 3. Obesity due to excess calories, BMI 34.4 4. Chronic back pain 5. Diabetes type 2 [id number] 6. Hypertensive heart disease 7. Hyperlipidemia 8. Depressive disorder 9. Generalized anxiety disorder 10. Bipolar disorder 11. Severe protein calorie malnutrition 12. Hypomagnesemia PLAN: -Antibiotic management per infectious disease. They have added Eraxis for yeast -Continue low fiber diet -Continue TPN for nutrition support until oral intake increases -DVT prophylaxis subcu heparin and GI prophylaxis Protonix Physician Record Tabulating Clerk note has been reviewed by physician. Signing provider agrees with the documented findings, assessment, and plan of care. Objective - Vital Signs Vital signs: Vital Signs Temp 98.3 F 02/06/24 08:34 Pulse 87 02/06/24 15:06 Resp 16 02/06/24 15:06 BP 142/92 02/06/24 15:06 Pulse Ox 97 02/06/24 15:06 FiO2 Intake & Output 05/14/24 05/15/24 05/15/24 18:59 06:59 18:59 Output Total 20497 Balance -2049 -4649 -2274 Weight 123 kg Output: Urine 1650 4500 2275 Stool 400 150 Other: Voiding Method Indwelling Catheter Indwelling Catheter Indwelling Catheter - Labs CBC & Chem 7: 02/06/24 09:49 02/06/24 09:49 Labs: Abnormal Lab Results - Last 24 Hours (Table) 02/05/24 02/05/24 02/06/24 Range/Units 16:09 20:21 00:03 WBC (3.8-10.6) k/uL RBC (4.30-5.90) m/uL Hgb (13.0-17.5) gm/dL Hct (39.0-53.0) % Neutrophils # (1.3-7.7) k/uL Lymphocytes # (1.0-4.8) k/uL Monocytes # (0-1.0) k/uL Sodium (137-145) mmol/L BUN (9-20) mg/dL Creatinine (0.66-1.25) mg/dL Glucose (74-99) mg/dL POC Glucose (mg/dL) 190 H 189 H 182 H (70-110) mg/dL Calcium (8.4-10.2) mg/dL 02/06/24 02/06/24 02/06/24 Range/Units 04:15 07:56 09:49 WBC 12.6 H (3.8-10.6) k/uL RBC 2.75 L (4.30-5.90) m/uL Hgb 8.7 L (13.0-17.5) gm/dL Hct 26.3 L (39.0-53.0) % Neutrophils # 10.2 H (1.3-7.7) k/uL Lymphocytes # 0.9 L (1.0-4.8) k/uL Monocytes # 1.1 H (0-1.0) k/uL Sodium (137-145) mmol/L BUN (9-20) mg/dL Creatinine (0.66-1.25) mg/dL Glucose (74-99) mg/dL POC Glucose (mg/dL) 144 H 170 H (70-110) mg/dL Calcium (8.4-10.2) mg/dL 02/06/24 02/06/24 Range/Units 09:49 11:27 WBC (3.8-10.6) k/uL RBC (4.30-5.90) m/uL Hgb (13.0-17.5) gm/dL Hct (39.0-53.0) % Neutrophils # (1.3-7.7) k/uL Lymphocytes # (1.0-4.8) k/uL Monocytes # (0-1.0) k/uL Sodium 135 L (137-145) mmol/L BUN 7 L (9-20) mg/dL Creatinine 0.42 L (0.66-1.25) mg/dL Glucose 151 H (74-99) mg/dL POC Glucose (mg/dL) 167 H (70-110) mg/dL Calcium 6.5 L (8.4-10.2) mg/dL
[2024-02-06 16:35] LABS: Glucose,Whole Blood 142 mg/dL (70-110)
[2024-02-06 20:09] LABS: Glucose,Whole Blood 164 mg/dL (70-110)
[2024-02-06 23:57] LABS: Glucose,Whole Blood 132 mg/dL (70-110)
[2024-02-07 04:05] LABS: Glucose,Whole Blood 152 mg/dL (70-110)
[2024-02-07 08:09] LABS: Glucose,Whole Blood 123 mg/dL (70-110)
[2024-02-07 10:27] LABS: African American GFR (CKD) >90 (>60 ml/min/1.73 sqM); Anion Gap 5 mmol/L; Blood Urea Nitrogen 8 mg/dL (9-20); Calcium 6.9 mg/dL (8.4-10.2); Carbon Dioxide 26 mmol/L (22-30); Chloride 104 mmol/L (98-107); Glucose 137 mg/dL (74-99); Magnesium 1.7 mg/dL (1.6-2.3); Non-African American GFR(CKD) >90 (>60 ml/min/1.73 sqM); Phosphorus 2.8 mg/dL (2.5-4.5); Potassium 4.1 mmol/L (3.5-5.1); Sodium 135 mmol/L (137-145)
--- NOTE | 2024-02-07 10:43 | P.PN ---
Subjective 53-year-old gentleman past medical history significant for chronic back pain, history of hypertension, history of diabetes mellitus presented to the emergency department with complaints of acute onset of abdominal pain on top of chronic back pain. Patient states symptom onset was 24 hours prior to presentation. Patient said he has a progressive decrease in appetite and had vomited a few times before coming in. Patient said he had 4 small stools however abdominal pain persisted. Patient was sent as a transfer from an outside hospital due to concern for diverticulitis with perforation. General surgery team was contacted, patient was made n.p.o. consultation obtained from general surgery and infectious disease 02/02/2024 Patient is seen and evaluated in room at bedside; no specific complaints reported Vital signs are reviewed and temperature 98.4, pulse 82, respiration 18 and blood pressure 165/78 with O2 saturation 96% Labs revealed WBC of 22.7, improved from 23.7 yesterday, hemoglobin 11.4, platelet count of 238, sodium 138, potassium 4.1, BUNs/creatinine 18/0.76 and blood glucose of 113 -patient presented hospital with sepsis in this patient did have fever tachycardia source is acute ruptured appendicitis and peritonitis and will need to cover for enteric gram-negative to be the likely pathogen less likely gram-positive kike -penicillin allergy that will limit the number of antibiotics safe to use -patient repeat CT abdominal pelvis did shows diverticulitis with multiple foci of air and contained leak -patient white count slightly down today will monitor closely; continue with cefepime and Flagyl we will repeat CBC with a.m. lab 02/03/2024 Patient is seen and evaluated resting comfortably in bed; continues to report uncontrolled pain; reports his Dilaudid has been changed; ostomy not producing at this time Vital signs are reviewed and remained stable Lab review shows improved white blood count 16.3 hemoglobin of 9.6 and platelet count of 268, sodium 136, potassium 3.8, BUNs/creatinine of 12/0.5, phosphorus is low at 1.9 magnesium stable at 1.8 -we will supplement electrolytes and continue to monitor e will supplement electrolytes and continue to monitor --Surgery recommending to advance diet as tolerated 02/04/2024 Patient awake alert He has some abdominal pain tenderness, expected postoperatively, wound closed with wound VAC in place, left lower colostomy bag with small liquid brown stool. No vomiting, poor appetite He is on Dilaudid drip 0.2 and normal saline 50 mL/h 02/05/2024 Patient awake alert He is in distress due to abdominal pain, wound VAC in place He is still on TPN Eraxis added to IV Flagyl and cefepime. Midline is requested Plan for ECF on 02/06/2024 Patient abdominal pain is controlled today. He can tolerate some liquid diet with no vomiting He emptied his colostomy bag yesterday. This morning it has no or minimal discharge He remains on TPN Plan for midline Patient will benefit from ECF upon discharge. Currently on broad-spectrum antibiotic with cefepime, IV Flagyl, Eraxis and daptomycin, ID team on the case 02/07/2024 Patient continued to improve slowly and gradually He tolerates oral diet, still getting TPN Abdominal pain is better 3/10 This morning he emptied his colostomy bag No chest pain or dyspnea. He remains on daptomycin, cefepime Flagyl and antifungal switched to an indulfaungin Objective - Vital Signs Vital signs: Vital Signs Temp 98.3 F 02/07/24 07:41 Pulse 80 02/07/24 07:41 Resp 15 02/07/24 07:41 BP 139/77 02/07/24 07:41 Pulse Ox 94 L 02/07/24 07:41 FiO2 Intake & Output 02/06/24 02/07/24 02/07/24 18:59 06:59 18:59 Intake Total 1028 120 Output Total 2725 2500 Balance -1697 -2380 Weight 123 kg Intake: Intake, IV Titration 1028 Amount Mvi, Adult No.4 with Vit 1028 K 10 ml Trace (Conc-1Ml/ Dose) 1 ml Sodium Phosphate 15 mmol Magnesium Sulfate gm 1 gm Sodium Acetate 20 meq In Amino Acid 5%-D20w+Lytes *E* 1,000 ml @ 90 mls/hr IV .BY DURATION [facility] Rx#: [id number] Oral 120 Output: Urine 2725 2400 Stool 100 Other: Voiding Method Indwelling Catheter Indwelling Catheter Indwelling Catheter - Exam GENERAL: The patient is alert and oriented x3, not in any acute distress. Well developed, well nourished. HEENT: Pupils are round and equally reacting to light. EOMI. No scleral icterus. No conjunctival pallor. Normocephalic, atraumatic. No pharyngeal erythema. No thyromegaly. CARDIOVASCULAR: S1 and S2 present. No murmurs, rubs, or gallops. PULMONARY: Chest is clear to auscultation, no wheezing , no crackles. - ABDOMEN: Soft, nontender, nondistended, normoactive bowel sounds. No palpable organomegaly. Left lower quadrant colostomy in place, vertical wound is closed with wound VAC in place MUSCULOSKELETAL: No joint swelling or deformity. EXTREMITIES: No cyanosis, clubbing, or pedal edema. NEUROLOGICAL: Gross neurological examination did not reveal any focal deficits. SKIN: No rashes. no petechiae. - Labs CBC & Chem 7: 02/06/24 09:49 02/07/24 09:06 Labs: Abnormal Lab Results - Last 24 Hours (Table) 02/06/24 02/06/24 02/06/24 Range/Units 09:49 09:49 11:27 WBC 12.6 H (3.8-10.6) k/uL RBC 2.75 L (4.30-5.90) m/uL Hgb 8.7 L (13.0-17.5) gm/dL Hct 26.3 L (39.0-53.0) % Neutrophils # 10.2 H (1.3-7.7) k/uL Lymphocytes # 0.9 L (1.0-4.8) k/uL Monocytes # 1.1 H (0-1.0) k/uL Sodium 135 L (137-145) mmol/L BUN 7 L (9-20) mg/dL Creatinine 0.42 L (0.66-1.25) mg/dL Glucose 151 H (74-99) mg/dL POC Glucose (mg/dL) 167 H (70-110) mg/dL Calcium 6.5 L (8.4-10.2) mg/dL 02/06/24 02/06/24 02/06/24 Range/Units 16:34 20:05 23:53 WBC (3.8-10.6) k/uL RBC (4.30-5.90) m/uL Hgb (13.0-17.5) gm/dL Hct (39.0-53.0) % Neutrophils # (1.3-7.7) k/uL Lymphocytes # (1.0-4.8) k/uL Monocytes # (0-1.0) k/uL Sodium (137-145) mmol/L BUN (9-20) mg/dL Creatinine (0.66-1.25) mg/dL Glucose (74-99) mg/dL POC Glucose (mg/dL) 142 H 164 H 132 H (70-110) mg/dL Calcium (8.4-10.2) mg/dL 02/07/24 02/07/24 02/07/24 Range/Units 04:03 08:07 09:06 WBC (3.8-10.6) k/uL RBC (4.30-5.90) m/uL Hgb (13.0-17.5) gm/dL Hct (39.0-53.0) % Neutrophils # (1.3-7.7) k/uL Lymphocytes # (1.0-4.8) k/uL Monocytes # (0-1.0) k/uL Sodium 135 L (137-145) mmol/L BUN 8 L (9-20) mg/dL Creatinine 0.45 L (0.66-1.25) mg/dL Glucose 137 H (74-99) mg/dL POC Glucose (mg/dL) 152 H 123 H (70-110) mg/dL Calcium 6.9 L (8.4-10.2) mg/dL Assessment and Plan Assessment: Acute diverticulitis with perforation and localized abscess s/p surgical intervention exploratory laporotomy, sigmoid resection and descending colostomy and drainage of intra-abdominal abscess on 01/30 Sepsis secondary to intra-abdominal infection Acute kidney injury prerenal due to hypotension and dehydration. 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 Anxiety maintained on xanax scheduled which has been resumed and patients mood has improved. Continue with antibiotics IV cefepime and Flagyl Continue with normal saline 50 mL/h Continue with pain medication Wound VAC in place General surgery following Patient evaluated by compliance and control analyst and infectious disease team Labs and medication were reviewed.. Continue same treatment. Continue with symptomatic treatment. Resume home medication. Monitor labs and vitals. DVT and GI prophylaxis. Further recommendations as per clinical course of the patient DVT prophylaxis: Subcutaneous heparin GI Prophylaxis: Ppi PT/OT: Pending Prognosis is guarded
[2024-02-07] MEDS: MAGNESIUM SULFATE-D5W PMX 1 GM in DEXTROSE/WATER 1 100ML.BAG IVPB SCH (11:09)
[2024-02-07 11:56] LABS: Glucose,Whole Blood 150 mg/dL (70-110)
--- NOTE | 2024-02-07 14:00 | P.PN ---
Subjective Progress Note Date: 02/07/24 CHIEF COMPLAINT: Diverticulitis HISTORY OF PRESENT ILLNESS: Patient is postop day #7 status post exploratory with sigmoid resection for perforated mid sigmoid colon and descending colostomy. Patient reports his pain is controlled. He has [employer] pump. He denies any nausea or vomiting. His ostomy is functioning. Oral intake remains poor. Prevena wound VAC did lose suction and is currently to wall suction. Tubing was retaped and dressing has appropriate suction. Afebrile. WBC 15.7 to 12.6 PHYSICAL EXAM: VITAL SIGNS: Reviewed GENERAL: Well-developed in no acute distress. HEENT: No sclera icterus. Extraocular movements grossly intact. Moist buccal mucosa. Head is atraumatic, normocephalic. Hears conversational speech. No nasal drainage. NECK: Supple without lymphadenopathy. CHEST: Non-labored respirations and equal bilateral excursions. CARDIOVASCULAR: Palpable 2+ radial pulses. ABDOMEN: Soft. Nondistended. Prevena wound VAC clean dry and intact. Ostomy with liquidy stool. Stoma beefy red MUSCULOSKELETAL: No clubbing or cyanosis. NEUROLOGIC: No focal or lateralizing signs. Cranial nerves II through XII grossly intact. PSYCH: Appropriate affect. Alert and oriented to person, place and time. SKIN: Well perfused. Good skin turgor. ASSESSMENT: 1. Perforated complicated sigmoid diverticulitis with pelvic abscess 2. Sepsis present on admission due to perforated diverticulitis 3. Obesity due to excess calories, BMI 34.4 4. Chronic back pain 5. Diabetes type 2 [id number] 6. Hypertensive heart disease 7. Hyperlipidemia 8. Depressive disorder 9. Generalized anxiety disorder 10. Bipolar disorder 11. Severe protein calorie malnutrition 12. Hypomagnesemia PLAN: -Wean off TPN. Continue to monitor patient's oral intake -Would recommend ECF at discharge -Antibiotics per infectious disease -Continue low fiber diet -DVT prophylaxis subcu heparin and GI prophylaxis Protonix Physician Unloader Operator note has been reviewed by physician. Signing provider agrees with the documented findings, assessment, and plan of care. Objective - Vital Signs Vital signs: Vital Signs Temp 98.2 F 02/07/24 11:31 Pulse 88 02/07/24 11:31 Resp 16 02/07/24 11:31 BP 125/77 02/07/24 11:31 Pulse Ox 94 L 02/07/24 11:31 FiO2 Intake & Output 02/06/24 02/07/24 02/07/24 18:59 06:59 18:59 Intake Total 1028 120 Output Total 2725 2500 550 Balance -1697 -2380 -550 Weight 123 kg Intake: Intake, IV Titration 1028 Amount Mvi, Adult No.4 with Vit 1028 K 10 ml Trace (Conc-1Ml/ Dose) 1 ml Sodium Phosphate 15 mmol Magnesium Sulfate gm 1 gm Sodium Acetate 20 meq In Amino Acid 5%-D20w+Lytes *E* 1,000 ml @ 90 mls/hr IV .BY DURATION [facility] Rx#: [id number] Oral 120 Output: Urine 2725 2400 550 Stool 100 Other: Voiding Method Indwelling Catheter Indwelling Catheter Indwelling Catheter - Labs CBC & Chem 7: 02/06/24 09:49 02/07/24 09:06 Labs: Abnormal Lab Results - Last 24 Hours (Table) 02/06/24 02/06/24 02/06/24 Range/Units 16:34 20:05 23:53 Sodium (137-145) mmol/L BUN (9-20) mg/dL Creatinine (0.66-1.25) mg/dL Glucose (74-99) mg/dL POC Glucose (mg/dL) 142 H 164 H 132 H (70-110) mg/dL Calcium (8.4-10.2) mg/dL 02/07/24 02/07/24 02/07/24 Range/Units 04:03 08:07 09:06 Sodium 135 L (137-145) mmol/L BUN 8 L (9-20) mg/dL Creatinine 0.45 L (0.66-1.25) mg/dL Glucose 137 H (74-99) mg/dL POC Glucose (mg/dL) 152 H 123 H (70-110) mg/dL Calcium 6.9 L (8.4-10.2) mg/dL 02/07/24 Range/Units 11:55 Sodium (137-145) mmol/L BUN (9-20) mg/dL Creatinine (0.66-1.25) mg/dL Glucose (74-99) mg/dL POC Glucose (mg/dL) 150 H (70-110) mg/dL Calcium (8.4-10.2) mg/dL
[2024-02-07 16:16] LABS: Glucose,Whole Blood 152 mg/dL (70-110)
--- NOTE | 2024-02-07 16:31 | P.PN ---
Subjective Progress Note Date: 02/06/24 Principal diagnosis: Reason for follow-up is perforated diverticulitis with sepsis on admission Patient is a 53-year-old male with past medical history significant for diabetes mellitus hypertension anxiety bipolar depression and brain surgery patient presented to hospital with abdominal pain and this patient has been diagnosed with the ruptured diverticulitis and sepsis for the patient was transferred to [facility]. Patient is status post Exploratory laparotomy with sigmoid resection for perforated mid sigmoid colon, Descending colostomy and drainage of 1600 open abdominal abscess procedure completed on 01/31/2024. On today's evaluation that is 02/06/2024,the patient remains to be afebrile, patient is on room air not requiring supplemental oxygen and denies any shortness of breath no chest pain or cough.Patient denies having any nausea or vomiting, abdominal pain has improved some output in his colostomy Patient white count is down to 12.6 creatinine 0.42 Objective - Vital Signs Vital signs: Vital Signs Temp 98.3 F 02/06/24 08:34 Pulse 76 02/06/24 11:44 Resp 16 02/06/24 11:44 BP 144/86 02/06/24 11:44 Pulse Ox 96 02/06/24 11:44 FiO2 Intake & Output 02/05/24 02/06/24 02/06/24 18:59 06:59 18:59 Output Total 0 4650 1500 Balance -0 -4650 -1500 Weight 123 kg Output: Urine 1650 4500 1500 Stool 400 150 Other: Voiding Method Indwelling Catheter Indwelling Catheter Indwelling Catheter - Exam GENERAL DESCRIPTION: Middle-age male lying in bed in no distress RESPIRATORY SYSTEM: Unlabored breathing , decreased breath sounds at bases HEART: S1 S2 regular rate and rhythm , ABDOMEN: Soft , mild tenderness EXTREMITIES: No edema feet - Labs CBC & Chem 7: 02/06/24 09:49 02/07/24 09:06 Labs: Abnormal Lab Results - Last 24 Hours (Table) 02/05/24 02/05/24 02/06/24 Range/Units 16:09 20:21 00:03 WBC (3.8-10.6) k/uL RBC (4.30-5.90) m/uL Hgb (13.0-17.5) gm/dL Hct (39.0-53.0) % Neutrophils # (1.3-7.7) k/uL Lymphocytes # (1.0-4.8) k/uL Monocytes # (0-1.0) k/uL Sodium (137-145) mmol/L BUN (9-20) mg/dL Creatinine (0.66-1.25) mg/dL Glucose (74-99) mg/dL POC Glucose (mg/dL) 190 H 189 H 182 H (70-110) mg/dL Calcium (8.4-10.2) mg/dL 02/06/24 02/06/24 02/06/24 Range/Units 04:15 07:56 09:49 WBC 12.6 H (3.8-10.6) k/uL RBC 2.75 L (4.30-5.90) m/uL Hgb 8.7 L (13.0-17.5) gm/dL Hct 26.3 L (39.0-53.0) % Neutrophils # 10.2 H (1.3-7.7) k/uL Lymphocytes # 0.9 L (1.0-4.8) k/uL Monocytes # 1.1 H (0-1.0) k/uL Sodium (137-145) mmol/L BUN (9-20) mg/dL Creatinine (0.66-1.25) mg/dL Glucose (74-99) mg/dL POC Glucose (mg/dL) 144 H 170 H (70-110) mg/dL Calcium (8.4-10.2) mg/dL 02/06/24 02/06/24 Range/Units 09:49 11:27 WBC (3.8-10.6) k/uL RBC (4.30-5.90) m/uL Hgb (13.0-17.5) gm/dL Hct (39.0-53.0) % Neutrophils # (1.3-7.7) k/uL Lymphocytes # (1.0-4.8) k/uL Monocytes # (0-1.0) k/uL Sodium 135 L (137-145) mmol/L BUN 7 L (9-20) mg/dL Creatinine 0.42 L (0.66-1.25) mg/dL Glucose 151 H (74-99) mg/dL POC Glucose (mg/dL) 167 H (70-110) mg/dL Calcium 6.5 L (8.4-10.2) mg/dL Assessment and Plan (1) Penicillin allergy Current Visit: Yes Status: Acute Code(s): Z88.0 - ALLERGY STATUS TO PENICILLIN SNOMED Code(s): 81111133 (2) Perforation of sigmoid colon due to diverticulitis Current Visit: Yes Status: Acute Code(s): K57.20 - DVTRCLI OF LG INT W PERFORATION AND ABSCESS W/O BLEEDING SNOMED Code(s): 0777301670399955 (3) Peritonitis Current Visit: Yes Status: Acute Code(s): K65.9 - PERITONITIS, UNSPECIFIED SNOMED Code(s): 71560604 Plan: 1patient presented hospital with sepsis in this patient did have fever tachyc ardia source is acute ruptured appendicitis and peritonitis and will need to cover for enteric gram-negative to be the likely pathogen less likely gram- positive kike 2-penicillin allergy that will limit the number of antibiotics safe to use 3-patient repeat CT abdominal pelvis did shows diverticulitis with multiple foci of air and contained leak,patient is status post sigmoid colectomy descending colostomy and drainage of abdominal abscess cultures currently growing VRE, Hamida albicans and none albicans Hamida 5-patient is currently covered with cefepime Flagyl, daptomycin and Eraxis, need to use multiple antibiotic because of his penicillin allergy which has been described as anaphylaxis Dictation was produced using [employer] dictation software. please excuse any grammatical, word or spelling errors. Time with Patient: Less than 30
--- NOTE | 2024-02-07 16:32 | P.PN ---
Subjective Progress Note Date: 02/07/24 Principal diagnosis: Reason for follow-up is perforated diverticulitis with sepsis on admission Patient is a 53-year-old male with past medical history significant for diabetes mellitus hypertension anxiety bipolar depression and brain surgery patient presented to hospital with abdominal pain and this patient has been diagnosed with the ruptured diverticulitis and sepsis for the patient was transferred to [facility]. Patient is status post Exploratory laparotomy with sigmoid resection for perforated mid sigmoid colon, Descending colostomy and drainage of 1600 open abdominal abscess procedure completed on 01/31/2024. On today's evaluation that is 02/07/2024, the patient continues to be afebrile, the patient is on room air and breathing comfortably, the Pt denies having any chest pain or cough, the patient has been complaining of slightly more abdominal pain today nausea but no vomiting no significant output in the colostomy bag No CBC was done today, creatinine is 0.45 Objective - Vital Signs Vital signs: Vital Signs Temp 98.2 F 02/07/24 11:31 Pulse 88 02/07/24 11:31 Resp 16 02/07/24 11:31 BP 125/77 02/07/24 11:31 Pulse Ox 94 L 02/07/24 11:31 FiO2 Intake & Output 02/06/24 02/07/24 02/07/24 18:59 06:59 18:59 Intake Total 1028 120 Output Total 2725 2500 550 Balance -8882 -4634 -550 Weight 123 kg Intake: Intake, IV Titration 1028 Amount Mvi, Adult No.4 with Vit 1028 K 10 ml Trace (Conc-1Ml/ Dose) 1 ml Sodium Phosphate 15 mmol Magnesium Sulfate gm 1 gm Sodium Acetate 20 meq In Amino Acid 5%-D20w+Lytes *E* 1,000 ml @ 90 mls/hr IV .BY DURATION [facility] Rx#: [id number] Oral 120 Output: Urine 2725 2400 550 Stool 100 Other: Voiding Method Indwelling Catheter Indwelling Catheter Indwelling Catheter - Exam GENERAL DESCRIPTION: Middle-age male lying in bed in no distress RESPIRATORY SYSTEM: Unlabored breathing , decreased breath sounds at bases HEART: S1 S2 regular rate and rhythm , ABDOMEN: Soft , mild tenderness EXTREMITIES: No edema feet - Labs CBC & Chem 7: 02/06/24 09:49 02/07/24 09:06 Labs: Abnormal Lab Results - Last 24 Hours (Table) 02/06/24 02/06/24 02/06/24 Range/Units 16:34 20:05 23:53 Sodium (137-145) mmol/L BUN (9-20) mg/dL Creatinine (0.66-1.25) mg/dL Glucose (74-99) mg/dL POC Glucose (mg/dL) 142 H 164 H 132 H (70-110) mg/dL Calcium (8.4-10.2) mg/dL 02/07/24 02/07/24 02/07/24 Range/Units 04:03 08:07 09:06 Sodium 135 L (137-145) mmol/L BUN 8 L (9-20) mg/dL Creatinine 0.45 L (0.66-1.25) mg/dL Glucose 137 H (74-99) mg/dL POC Glucose (mg/dL) 152 H 123 H (70-110) mg/dL Calcium 6.9 L (8.4-10.2) mg/dL 02/07/24 Range/Units 11:55 Sodium (137-145) mmol/L BUN (9-20) mg/dL Creatinine (0.66-1.25) mg/dL Glucose (74-99) mg/dL POC Glucose (mg/dL) 150 H (70-110) mg/dL Calcium (8.4-10.2) mg/dL Assessment and Plan (1) Penicillin allergy Current Visit: Yes Status: Acute Code(s): Z88.0 - ALLERGY STATUS TO PENICILLIN SNOMED Code(s): 20522059 (2) Perforation of sigmoid colon due to diverticulitis Current Visit: Yes Status: Acute Code(s): K57.20 - DVTRCLI OF LG INT W PERFORATION AND ABSCESS W/O BLEEDING SNOMED Code(s): 0574586115115789 (3) Peritonitis Current Visit: Yes Status: Acute Code(s): K65.9 - PERITONITIS, UNSPECIFIED SNOMED Code(s): 20684921 Plan: 1patient presented hospital with sepsis in this patient did have fever tachycardia source is acute ruptured appendicitis and peritonitis and will need to cover for enteric gram-negative to be the likely pathogen less likely gram- positive kike 2-penicillin allergy that will limit the number of antibiotics safe to use 3-patient repeat CT abdominal pelvis did shows diverticulitis with multiple foci of air and contained leak,patient is status post sigmoid colectomy descending colostomy and drainage of abdominal abscess cultures currently growing VRE, Hamida albicans and none albicans Hamida 5-patient is afebrile patient white count was trending down as of yesterday did have penicillin allergy hence requiring multiple antibiotics continue cefepime Flagyl, daptomycin and Eraxis Question concern answered Dictation was produced using [employer] dictation software. please excuse any grammatical, word or spelling errors. Time with Patient: Less than 30
[2024-02-07 19:55] LABS: Glucose,Whole Blood 131 mg/dL (70-110)
[2024-02-08 00:26] LABS: Glucose,Whole Blood 110 mg/dL (70-110)
[2024-02-08 04:33] LABS: Glucose,Whole Blood 128 mg/dL (70-110)
[2024-02-08 09:59] LABS: ALT 9 U/L (4-49); AST 22 U/L (17-59); African American GFR (CKD) >90 (>60 ml/min/1.73 sqM); Albumin 1.9 g/dL (3.5-5.0); Alkaline Phosphatase 90 U/L (38-126); Anion Gap 3 mmol/L; Blood Urea Nitrogen 8 mg/dL (9-20); Calcium 7.1 mg/dL (8.4-10.2); Carbon Dioxide 29 mmol/L (22-30); Chloride 103 mmol/L (98-107); Glucose 101 mg/dL (74-99); Non-African American GFR(CKD) >90 (>60 ml/min/1.73 sqM); Potassium 4.7 mmol/L (3.5-5.1); Sodium 135 mmol/L (137-145); Total Bilirubin 0.7 mg/dL (0.2-1.3); Total Protein 4.7 g/dL (6.3-8.2)
[2024-02-08 10:07] LABS: Magnesium 1.5 mg/dL (1.6-2.3); Phosphorus 2.9 mg/dL (2.5-4.5)
[2024-02-08 11:41] LABS: Glucose,Whole Blood 122 mg/dL (70-110)
--- NOTE | 2024-02-08 12:15 | P.PN ---
Subjective Progress Note Date: 02/08/24 CHIEF COMPLAINT: Diverticulitis HISTORY OF PRESENT ILLNESS: Patient is postop day #8 status post exploratory with sigmoid resection for perforated mid sigmoid colon and descending colostomy. Patient reports his pain is controlled. He has SCREWHEAD STONER AND POLISHER pump. He denies any nausea or vomiting. His ostomy is functioning. TPN was discontinued yesterday. Patient eating breakfast this morning. He ate most of his eggs. His previous nausea wound VAC dressing is not holding suction. Afebrile. PHYSICAL EXAM: VITAL SIGNS: Reviewed GENERAL: Well-developed in no acute distress. HEENT: No sclera icterus. Extraocular movements grossly intact. Moist buccal mucosa. Head is atraumatic, normocephalic. Hears conversational speech. No nasal drainage. NECK: Supple without lymphadenopathy. CHEST: Non-labored respirations and equal bilateral excursions. CARDIOVASCULAR: Palpable 2+ radial pulses. ABDOMEN: Soft. Nondistended. Prevena wound VAC not staying suctioned down. Ostomy no stool currently. Stoma beefy red MUSCULOSKELETAL: No clubbing or cyanosis. NEUROLOGIC: No focal or lateralizing signs. Cranial nerves II through XII grossly intact. PSYCH: Appropriate affect. Alert and oriented to person, place and time. SKIN: Well perfused. Good skin turgor. ASSESSMENT: 1. Perforated complicated sigmoid diverticulitis with pelvic abscess. Culture with VRE and Hamida 2. Sepsis present on admission due to perforated diverticulitis 3. Obesity due to excess calories, BMI 34.4 4. Chronic back pain 5. Diabetes type 2 [id number] 6. Hypertensive heart disease 7. Hyperlipidemia 8. Depressive disorder 9. Generalized anxiety disorder 10. Bipolar disorder 11. Severe protein calorie malnutrition 12. Hypomagnesemia PLAN: -Discontinue Prevena wound VAC dressing. Apply Optifoam silver dressing to incision site -Discontinue SCREWHEAD STONER AND POLISHER pump resume patient's home pain medication Oxy IR 15 mg every 6 hours as needed. Patient will have on Dilaudid 1 mg IV every 6 hours as needed for breakthrough pain -Patient is agreeable for ECF placement -Antibiotics per infectious disease -Continue low fiber diet -DVT prophylaxis subcu heparin and GI prophylaxis Protonix Physician Tank Car Repairer note has been reviewed by physician. Signing provider agrees with the documented findings, assessment, and plan of care. Objective - Vital Signs Vital signs: Vital Signs Temp 98.5 F 02/08/24 04:00 Pulse 85 05/17/24 04:00 Resp 18 02/08/24 04:00 BP 150/83 02/08/24 04:00 Pulse Ox 91 L 02/08/24 04:00 FiO2 Intake & Output 02/07/24 02/08/24 02/08/24 18:59 06:59 18:59 Intake Total 1028 120 Output Total 550 5100 Balance 478 -4980 Intake: Intake, IV Titration 1028 Amount Mvi, Adult No.4 with Vit 1028 K 10 ml Trace (Conc-1Ml/ Dose) 1 ml Sodium Phosphate 15 mmol Magnesium Sulfate gm 1 gm Sodium Acetate 20 meq In Amino Acid 5%-D20w+Lytes *E* 1,000 ml @ 90 mls/hr IV .BY DURATION [facility] Rx#: [id number] Oral 120 Output: Urine 550 5100 Other: Voiding Method Indwelling Catheter Indwelling Catheter - Labs CBC & Chem 7: 02/06/24 09:49 02/08/24 08:04 Labs: Abnormal Lab Results - Last 24 Hours (Table) 02/07/24 02/07/24 02/07/24 Range/Units 09:06 11:55 16:15 Sodium 135 L (137-145) mmol/L BUN 8 L (9-20) mg/dL Creatinine 0.45 L (0.66-1.25) mg/dL Glucose 137 H (74-99) mg/dL POC Glucose (mg/dL) 150 H 152 H (70-110) mg/dL Calcium 6.9 L (8.4-10.2) mg/dL Ionized Calcium Trevon (4.5-5.3) mg/dL Magnesium (1.6-2.3) mg/dL Total Protein (6.3-8.2) g/dL Albumin (3.5-5.0) g/dL 02/07/24 02/08/24 02/08/24 Range/Units 19:53 04:30 08:04 Sodium (137-145) mmol/L BUN (9-20) mg/dL Creatinine (0.66-1.25) mg/dL Glucose (74-99) mg/dL POC Glucose (mg/dL) 131 H 128 H (70-110) mg/dL Calcium (8.4-10.2) mg/dL Ionized Calcium Trevon 4.4 L (4.5-5.3) mg/dL Magnesium (1.6-2.3) mg/dL Total Protein (6.3-8.2) g/dL Albumin (3.5-5.0) g/dL 02/08/24 02/08/24 Range/Units 08:04 08:04 Sodium 135 L (137-145) mmol/L BUN 8 L (9-20) mg/dL Creatinine 0.47 L (0.66-1.25) mg/dL Glucose 101 H (74-99) mg/dL POC Glucose (mg/dL) (70-110) mg/dL Calcium 7.1 L (8.4-10.2) mg/dL Ionized Calcium Trevon (4.5-5.3) mg/dL Magnesium 1.5 L (1.6-2.3) mg/dL Total Protein 4.7 L (6.3-8.2) g/dL Albumin 1.9 L (3.5-5.0) g/dL
[2024-02-08] MEDS: INSULIN ASPART (NovoLOG) 100 UNIT/ML VIAL SQ SCH (12:44)
--- NOTE | 2024-02-08 15:27 | P.PN ---
Subjective Progress Note Date: 02/08/24 Principal diagnosis: Reason for follow-up is perforated diverticulitis with sepsis on admission Patient is a 53-year-old male with past medical history significant for diabetes mellitus hypertension anxiety bipolar depression and brain surgery patient presented to hospital with abdominal pain and this patient has been diagnosed with the ruptured diverticulitis and sepsis for the patient was transferred to [facility]. Patient is status post Exploratory laparotomy with sigmoid resection for perforated mid sigmoid colon, Descending colostomy and drainage of 1600 open abdominal abscess procedure completed on 01/31/2024. On today's evaluation that is 02/08/2024, Patient is afebrile patient is currently on room air and denies having any shortness of breath, the patient denies any chest pain or cough, the patient denies any nausea vomiting still complains of abdominal pain out about 4 out of 10 no significant output in the colostomy bag. Patient creatinine 0.47 no CBC was done today Objective - Vital Signs Vital signs: Vital Signs Temp 98.5 F 02/08/24 04:00 Pulse 85 02/08/24 04:00 Resp 18 02/08/24 04:00 BP 150/83 02/08/24 04:00 Pulse Ox 91 L 02/08/24 04:00 FiO2 Intake & Output 02/07/24 02/08/24 02/08/24 18:59 06:59 18:59 Intake Total 1028 120 Output Total 550 5100 Balance 478 -4980 Intake: Intake, IV Titration 1028 Amount Mvi, Adult No.4 with Vit 1028 K 10 ml Trace (Conc-1Ml/ Dose) 1 ml Sodium Phosphate 15 mmol Magnesium Sulfate gm 1 gm Sodium Acetate 20 meq In Amino Acid 5%-D20w+Lytes *E* 1,000 ml @ 90 mls/hr IV .BY DURATION [facility] Rx#: [id number] Oral 120 Output: Urine 550 5100 Other: Voiding Method Indwelling Catheter Indwelling Catheter - Exam GENERAL DESCRIPTION: Middle-age male lying in bed in no distress RESPIRATORY SYSTEM: Unlabored breathing , decreased breath sounds at bases HEART: S1 S2 regular rate and rhythm , ABDOMEN: Soft , mild tenderness EXTREMITIES: No edema feet - Labs CBC & Chem 7: 02/06/24 09:49 02/08/24 08:04 Labs: Abnormal Lab Results - Last 24 Hours (Table) 02/07/24 02/07/24 02/08/24 Range/Units 16:15 19:53 04:30 Sodium (137-145) mmol/L BUN (9-20) mg/dL Creatinine (0.66-1.25) mg/dL Glucose (74-99) mg/dL POC Glucose (mg/dL) 152 H 131 H 128 H (70-110) mg/dL Calcium (8.4-10.2) mg/dL Ionized Calcium Trevon (4.5-5.3) mg/dL Magnesium (1.6-2.3) mg/dL Total Protein (6.3-8.2) g/dL Albumin (3.5-5.0) g/dL 02/08/24 02/08/24 02/08/24 Range/Units 08:04 08:04 08:04 Sodium 135 L (137-145) mmol/L BUN 8 L (9-20) mg/dL Creatinine 0.47 L (0.66-1.25) mg/dL Glucose 101 H (74-99) mg/dL POC Glucose (mg/dL) (70-110) mg/dL Calcium 7.1 L (8.4-10.2) mg/dL Ionized Calcium Trevon 4.4 L (4.5-5.3) mg/dL Magnesium 1.5 L (1.6-2.3) mg/dL Total Protein 4.7 L (6.3-8.2) g/dL Albumin 1.9 L (3.5-5.0) g/dL 02/08/24 Range/Units 11:39 Sodium (137-145) mmol/L BUN (9-20) mg/dL Creatinine (0.66-1.25) mg/dL Glucose (74-99) mg/dL POC Glucose (mg/dL) 122 H (70-110) mg/dL Calcium (8.4-10.2) mg/dL Ionized Calcium Trevon (4.5-5.3) mg/dL Magnesium (1.6-2.3) mg/dL Total Protein (6.3-8.2) g/dL Albumin (3.5-5.0) g/dL Assessment and Plan (1) Penicillin allergy Current Visit: Yes Status: Acute Code(s): Z88.0 - ALLERGY STATUS TO PENICILLIN SNOMED Code(s): 93017939 (2) Perforation of sigmoid colon due to diverticulitis Current Visit: Yes Status: Acute Code(s): K57.20 - DVTRCLI OF LG INT W PERFORATION AND ABSCESS W/O BLEEDING SNOMED Code(s): 2692573349606285 (3) Peritonitis Current Visit: Yes Status: Acute Code(s): K65.9 - PERITONITIS, UNSPECIFIED SNOMED Code(s): 63497676 Plan: 1patient presented hospital with sepsis in this patient did have fever tachycardia source is acute ruptured appendicitis and peritonitis and will need to cover for enteric gram-negative to be the likely pathogen less likely gram- positive kike 2-penicillin allergy that will limit the number of antibiotics safe to use 3-patient repeat CT abdominal pelvis did shows diverticulitis with multiple foci of air and contained leak,patient is status post sigmoid colectomy descending colostomy and drainage of abdominal abscess cultures currently growing VRE, Hamida albicans and none albicans Hamida 4-patient is afebrile patient white count was trending down, no CBC was done today we will repeat CBC with a.m. lab and for now continue cefepime Flagyl, daptomycin and Eraxis Question concern answered Dictation was produced using [employer] dictation software. please excuse any grammatical, word or spelling errors. Time with Patient: Less than 30
[2024-02-08] MEDS: MAGNESIUM SULFATE-D5W PMX 1 GM in DEXTROSE/WATER 1 100ML.BAG IVPB SCH (16:05)
[2024-02-08 16:49] LABS: Glucose,Whole Blood 117 mg/dL (70-110)
[2024-02-08] MEDS: HYDROmorphone 1 MG/ML 1 ML SYRINGE IVP PRN (17:25)
[2024-02-08 20:40] LABS: Glucose,Whole Blood 98 mg/dL (70-110)
--- NOTE | 2024-02-08 22:41 | P.PN ---
Subjective 53-year-old gentleman past medical history significant for chronic back pain, history of hypertension, history of diabetes mellitus presented to the emergency department with complaints of acute onset of abdominal pain on top of chronic back pain. Patient states symptom onset was 24 hours prior to presentation. Patient said he has a progressive decrease in appetite and had vomited a few times before coming in. Patient said he had 4 small stools however abdominal pain persisted. Patient was sent as a transfer from an outside hospital due to concern for diverticulitis with perforation. General surgery team was contacted, patient was made n.p.o. consultation obtained from general surgery and infectious disease 02/02/2024 Patient is seen and evaluated in room at bedside; no specific complaints reported Vital signs are reviewed and temperature 98.4, pulse 82, respiration 18 and blood pressure 165/78 with O2 saturation 96% Labs revealed WBC of 22.7, improved from 23.7 yesterday, hemoglobin 11.4, platelet count of 238, sodium 138, potassium 4.1, BUNs/creatinine 18/0.76 and blood glucose of 113 -patient presented hospital with sepsis in this patient did have fever tachycardia source is acute ruptured appendicitis and peritonitis and will need to cover for enteric gram-negative to be the likely pathogen less likely gram-positive kike -penicillin allergy that will limit the number of antibiotics safe to use -patient repeat CT abdominal pelvis did shows diverticulitis with multiple foci of air and contained leak -patient white count slightly down today will monitor closely; continue with cefepime and Flagyl we will repeat CBC with a.m. lab 02/03/2024 Patient is seen and evaluated resting comfortably in bed; continues to report uncontrolled pain; reports his Dilaudid has been changed; ostomy not producing at this time Vital signs are reviewed and remained stable Lab review shows improved white blood count 16.3 hemoglobin of 9.6 and platelet count of 268, sodium 136, potassium 3.8, BUNs/creatinine of 12/0.5, phosphorus is low at 1.9 magnesium stable at 1.8 -we will supplement electrolytes and continue to monitor e will supplement electrolytes and continue to monitor --Surgery recommending to advance diet as tolerated 02/04/2024 Patient awake alert He has some abdominal pain tenderness, expected postoperatively, wound closed with wound VAC in place, left lower colostomy bag with small liquid brown stool. No vomiting, poor appetite He is on Dilaudid drip 0.2 and normal saline 50 mL/h 02/05/2024 Patient awake alert He is in distress due to abdominal pain, wound VAC in place He is still on TPN Eraxis added to IV Flagyl and cefepime. Len is requested Plan for ECF on 02/06/2024 Patient abdominal pain is controlled today. He can tolerate some liquid diet with no vomiting He emptied his colostomy bag yesterday. This morning it has no or minimal discharge He remains on TPN Plan for midline Patient will benefit from ECF upon discharge. Currently on broad-spectrum antibiotic with cefepime, IV Flagyl, Eraxis and daptomycin, ID team on the case 02/07/2024 Patient continued to improve slowly and gradually He tolerates oral diet, still getting TPN Abdominal pain is better 3/10 This morning he emptied his colostomy bag No chest pain or dyspnea. He remains on daptomycin, cefepime Flagyl and antifungal switched to an indulfaungin 02/08/2024 Patient abdominal pain controlled Patient is getting TPN, with plan to taper it off No new complaints Patient can be transferred out of the select unit Objective - Vital Signs Vital signs: Vital Signs Temp 98.1 F 02/08/24 08:00 Pulse 80 02/08/24 14:00 Resp 18 02/08/24 14:00 BP 144/80 02/08/24 12:00 Pulse Ox 95 02/08/24 12:00 FiO2 Intake & Output 02/07/24 02/08/24 02/08/24 18:59 06:59 18:59 Intake Total 1028 120 Output Total 550 5100 1100 Balance 478 -4980 -1100 Weight 123 kg Intake: Intake, IV Titration 1028 Amount Mvi, Adult No.4 with Vit 1028 K 10 ml Trace (Conc-1Ml/ Dose) 1 ml Sodium Phosphate 15 mmol Magnesium Sulfate gm 1 gm Sodium Acetate 20 meq In Amino Acid 5%-D20w+Lytes *E* 1,000 ml @ 90 mls/hr IV .BY DURATION [facility] Rx#: [id number] Oral 120 Output: Urine 550 5100 1000 Stool 100 Other: Voiding Method Indwelling Catheter Indwelling Catheter Indwelling Catheter - Exam GENERAL: The patient is alert and oriented x3, not in any acute distress. Well developed, well nourished. HEENT: Pupils are round and equally reacting to light. EOMI. No scleral icterus. No conjunctival pallor. Normocephalic, atraumatic. No pharyngeal erythema. No thyromegaly. CARDIOVASCULAR: S1 and S2 present. No murmurs, rubs, or gallops. PULMONARY: Chest is clear to auscultation, no wheezing , no crackles. - ABDOMEN: Soft, nontender, nondistended, normoactive bowel sounds. No palpable organomegaly. Left lower quadrant colostomy in place, vertical wound is closed with wound VAC in place MUSCULOSKELETAL: No joint swelling or deformity. EXTREMITIES: No cyanosis, clubbing, or pedal edema. NEUROLOGICAL: Gross neurological examination did not reveal any focal deficits. SKIN: No rashes. no petechiae. - Labs CBC & Chem 7: 02/06/24 09:49 02/08/24 08:04 Labs: Abnormal Lab Results - Last 24 Hours (Table) 02/07/24 02/07/24 02/08/24 Range/Units 16:15 19:53 04:30 Sodium (137-145) mmol/L BUN (9-20) mg/dL Creatinine (0.66-1.25) mg/dL Glucose (74-99) mg/dL POC Glucose (mg/dL) 152 H 131 H 128 H (70-110) mg/dL Calcium (8.4-10.2) mg/dL Ionized Calcium Trevon (4.5-5.3) mg/dL Magnesium (1.6-2.3) mg/dL Total Protein (6.3-8.2) g/dL Albumin (3.5-5.0) g/dL 02/08/24 02/08/24 02/08/24 Range/Units 08:04 08:04 08:04 Sodium 135 L (137-145) mmol/L BUN 8 L (9-20) mg/dL Creatinine 0.47 L (0.66-1.25) mg/dL Glucose 101 H (74-99) mg/dL POC Glucose (mg/dL) (70-110) mg/dL Calcium 7.1 L (8.4-10.2) mg/dL Ionized Calcium Trevon 4.4 L (4.5-5.3) mg/dL Magnesium 1.5 L (1.6-2.3) mg/dL Total Protein 4.7 L (6.3-8.2) g/dL Albumin 1.9 L (3.5-5.0) g/dL 02/08/24 Range/Units 11:39 Sodium (137-145) mmol/L BUN (9-20) mg/dL Creatinine (0.66-1.25) mg/dL Glucose (74-99) mg/dL POC Glucose (mg/dL) 122 H (70-110) mg/dL Calcium (8.4-10.2) mg/dL Ionized Calcium Trevon (4.5-5.3) mg/dL Magnesium (1.6-2.3) mg/dL Total Protein (6.3-8.2) g/dL Albumin (3.5-5.0) g/dL Assessment and Plan Assessment: Acute diverticulitis with perforation and localized abscess s/p surgical i ntervention exploratory laporotomy, sigmoid resection and descending colostomy and drainage of intra-abdominal abscess on 01/30 Sepsis secondary to intra-abdominal infection Acute kidney injury prerenal due to hypotension and dehydration. 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 Anxiety maintained on xanax scheduled which has been resumed and patients mood has improved. Continue with antibiotics IV cefepime and Flagyl Continue with normal saline 50 mL/h Continue with pain medication Wound VAC in place General surgery following Patient evaluated by solar sales representative and infectious disease team Labs and medication were reviewed.. Continue same treatment. Continue with symptomatic treatment. Resume home medication. Monitor labs and vitals. DVT and GI prophylaxis. Further recommendations as per clinical course of the patient DVT prophylaxis: Subcutaneous heparin GI Prophylaxis: Ppi PT/OT: Pending Prognosis is guarded
[2024-02-09 06:12] LABS: Glucose,Whole Blood 96 mg/dL (70-110)
[2024-02-09 08:27] LABS: Basophils # (A) 0.1 k/uL (0-0.2); Basophils % (A) 0 %; Eosinophils # (A) 0.2 k/uL (0-0.7); Eosinophils % (A) 1 %; HCT 27.7 % (39.0-53.0); HGB 8.6 gm/dL (13.0-17.5); Lymphocytes # (A) 0.8 k/uL (1.0-4.8); Lymphocytes % (A) 5 %; MCH 29.7 pg (25.0-35.0); MCHC 30.9 g/dL (31.0-37.0); Mean Platelet Volume 9.1; Monocytes # (A) 1.7 k/uL (0-1.0); Monocytes % (A) 10 %; Neutrophils # (A) 14.9 k/uL (1.3-7.7); Neutrophils % (A) 83 %; Platelet Count 466 k/uL (150-450); RBC 2.89 m/uL (4.30-5.90); RDW 13.9 % (11.5-15.5)
[2024-02-09 11:07] LABS: ALT 8 U/L (4-49); AST 25 U/L (17-59); African American GFR (CKD) >90 (>60 ml/min/1.73 sqM); Alkaline Phosphatase 89 U/L (38-126); Anion Gap 5 mmol/L; Blood Urea Nitrogen 8 mg/dL (9-20); Calcium 7.4 mg/dL (8.4-10.2); Carbon Dioxide 25 mmol/L (22-30); Chloride 103 mmol/L (98-107); Glucose 85 mg/dL (74-99); Magnesium 1.6 mg/dL (1.6-2.3); Non-African American GFR(CKD) >90 (>60 ml/min/1.73 sqM); Phosphorus 3.2 mg/dL (2.5-4.5); Potassium 4.7 mmol/L (3.5-5.1); Sodium 133 mmol/L (137-145); Total Bilirubin 0.3 mg/dL (0.2-1.3)
[2024-02-09 11:20] LABS: C Reactive Protein 16.5 mg/dL (<1.0)
[2024-02-09] MEDS: HYDROmorphone 1 MG/ML 1 ML SYRINGE IVP STA (11:22)
[2024-02-09 11:39] LABS: Glucose,Whole Blood 107 mg/dL (70-110)
--- NOTE | 2024-02-09 11:41 | P.PN ---
Progress Note - Text Progress Note Date: 02/09/24 CHIEF COMPLAINT: Diverticulitis HISTORY OF PRESENT ILLNESS: Patient is postop day #8 status post exploratory with sigmoid resection for perforated mid sigmoid colon and descending colostomy. Patient reports his pain is controlled. He denies any nausea or vomiting. His ostomy is functioning. Oral intake remains poor. Afebrile. PHYSICAL EXAM: VITAL SIGNS: Reviewed GENERAL: Well-developed in no acute distress. HEENT: No sclera icterus. Extraocular movements grossly intact. Moist buccal mucosa. Head is atraumatic, normocephalic. Hears conversational speech. No nasal drainage. NECK: Supple without lymphadenopathy. CHEST: Non-labored respirations and equal bilateral excursions. CARDIOVASCULAR: Palpable 2+ radial pulses. ABDOMEN: Soft. Nondistended. Prevena wound VAC clean dry and intact. Ostomy with liquidy stool. Stoma beefy red MUSCULOSKELETAL: No clubbing or cyanosis. NEUROLOGIC: No focal or lateralizing signs. Cranial nerves II through XII grossly intact. PSYCH: Appropriate affect. Alert and oriented to person, place and time. SKIN: Well perfused. Good skin turgor. ASSESSMENT: 1. Perforated complicated sigmoid diverticulitis with pelvic abscess 2. Sepsis present on admission due to perforated diverticulitis 3. Obesity due to excess calories, BMI 34.4 4. Chronic back pain 5. Diabetes type 2 [id number] 6. Hypertensive heart disease 7. Hyperlipidemia 8. Depressive disorder 9. Generalized anxiety disorder 10. Bipolar disorder 11. Severe protein calorie malnutrition 12. Hypomagnesemia PLAN: -Wean off TPN. Continue to monitor patient's oral intake -Would recommend ECF at discharge -Antibiotics per infectious disease -Continue low fiber diet -DVT prophylaxis subcu heparin and GI prophylaxis Protonix
[2024-02-09 16:34] LABS: Glucose,Whole Blood 92 mg/dL (70-110)
[2024-02-09 20:03] LABS: Glucose,Whole Blood 102 mg/dL (70-110)
--- NOTE | 2024-02-09 22:21 | P.PN ---
Subjective 53-year-old gentleman past medical history significant for chronic back pain, history of hypertension, history of diabetes mellitus presented to the emergency department with complaints of acute onset of abdominal pain on top of chronic back pain. Patient states symptom onset was 24 hours prior to presentation. Patient said he has a progressive decrease in appetite and had vomited a few times before coming in. Patient said he had 4 small stools however abdominal pain persisted. Patient was sent as a transfer from an outside hospital due to concern for diverticulitis with perforation. General surgery team was contacted, patient was made n.p.o. consultation obtained from general surgery and infectious disease 02/02/2024 Patient is seen and evaluated in room at bedside; no specific complaints reported Vital signs are reviewed and temperature 98.4, pulse 82, respiration 18 and blood pressure 165/78 with O2 saturation 96% Labs revealed WBC of 22.7, improved from 23.7 yesterday, hemoglobin 11.4, platelet count of 238, sodium 138, potassium 4.1, BUNs/creatinine 18/0.76 and blood glucose of 113 -patient presented hospital with sepsis in this patient did have fever tachycardia source is acute ruptured appendicitis and peritonitis and will need to cover for enteric gram-negative to be the likely pathogen less likely gram-positive kike -penicillin allergy that will limit the number of antibiotics safe to use -patient repeat CT abdominal pelvis did shows diverticulitis with multiple foci of air and contained leak -patient white count slightly down today will monitor closely; continue with cefepime and Flagyl we will repeat CBC with a.m. lab 02/03/2024 Patient is seen and evaluated resting comfortably in bed; continues to report uncontrolled pain; reports his Dilaudid has been changed; ostomy not producing at this time Vital signs are reviewed and remained stable Lab review shows improved white blood count 16.3 hemoglobin of 9.6 and platelet count of 268, sodium 136, potassium 3.8, BUNs/creatinine of 12/0.5, phosphorus is low at 1.9 magnesium stable at 1.8 -we will supplement electrolytes and continue to monitor e will supplement electrolytes and continue to monitor --Surgery recommending to advance diet as tolerated 02/04/2024 Patient awake alert He has some abdominal pain tenderness, expected postoperatively, wound closed with wound VAC in place, left lower colostomy bag with small liquid brown stool. No vomiting, poor appetite He is on Dilaudid drip 0.2 and normal saline 50 mL/h 02/05/2024 Patient awake alert He is in distress due to abdominal pain, wound VAC in place He is still on TPN Eraxis added to IV Flagyl and cefepime. Midline is requested Plan for ECF on 02/06/2024 Patient abdominal pain is controlled today. He can tolerate some liquid diet with no vomiting He emptied his colostomy bag yesterday. This morning it has no or minimal discharge He remains on TPN Plan for midline Patient will benefit from ECF upon discharge. Currently on broad-spectrum antibiotic with cefepime, IV Flagyl, Eraxis and daptomycin, ID team on the case 02/07/2024 Patient continued to improve slowly and gradually He tolerates oral diet, still getting TPN Abdominal pain is better 3/10 This morning he emptied his colostomy bag No chest pain or dyspnea. He remains on daptomycin, cefepime Flagyl and antifungal switched to an indulfaungin 02/08/2024 Patient abdominal pain controlled Patient is getting TPN, with plan to taper it off No new complaints Patient can be transferred out of the select unit 02/09/2024 Patient also with significant abdominal pain, Is complaining from more severe back pain today requiring extra dose of Dilaudid Patient is stable Objective - Vital Signs Vital signs: Vital Signs Temp 98.3 F 02/09/24 08:00 Pulse 82 02/09/24 08:00 Resp 18 02/09/24 08:00 BP 140/82 02/09/24 08:00 Pulse Ox 95 02/09/24 08:00 FiO2 Intake & Output 02/08/24 02/09/24 02/09/24 18:59 06:59 18:59 Intake Total 358 Output Total 2300 675 1700 Balance -2300 -675 -1342 Weight 123 kg Intake: Oral 358 Output: Urine 2200 675 1600 Stool 100 100 Other: Voiding Method Indwelling Catheter Urinal Urinal # Voids 1 - Exam GENERAL: The patient is alert and oriented x3, not in any acute distress. Well developed, well nourished. HEENT: Pupils are round and equally reacting to light. EOMI. No scleral icterus. No conjunctival pallor. Normocephalic, atraumatic. No pharyngeal erythema. No thyromegaly. CARDIOVASCULAR: S1 and S2 present. No murmurs, rubs, or gallops. PULMONARY: Chest is clear to auscultation, no wheezing , no crackles. - ABDOMEN: Soft, nontender, nondistended, normoactive bowel sounds. No palpable organomegaly. Left lower quadrant colostomy in place, vertical wound is closed with wound VAC in place MUSCULOSKELETAL: No joint swelling or deformity. EXTREMITIES: No cyanosis, clubbing, or pedal edema. NEUROLOGICAL: Gross neurological examination did not reveal any focal deficits. SKIN: No rashes. no petechiae. - Labs CBC & Chem 7: 02/09/24 07:29 02/09/24 07:29 Labs: Abnormal Lab Results - Last 24 Hours (Table) 02/08/24 02/08/24 02/09/24 Range/Units 11:39 16:47 07:29 WBC 18.0 H (3.8-10.6) k/uL RBC 2.89 L (4.30-5.90) m/uL Hgb 8.6 L (13.0-17.5) gm/dL Hct 27.7 L (39.0-53.0) % MCHC 30.9 L (31.0-37.0) g/dL Plt Count 466 H (150-450) k/uL Neutrophils # 14.9 H (1.3-7.7) k/uL Lymphocytes # 0.8 L (1.0-4.8) k/uL Monocytes # 1.7 H (0-1.0) k/uL POC Glucose (mg/dL) 122 H 117 H (70-110) mg/dL Assessment and Plan Assessment: Acute diverticulitis with perforation and localized abscess s/p surgical intervention exploratory laporotomy, sigmoid resection and descending colostomy and drainage of intra-abdominal abscess on 01/30 Sepsis secondary to intra-abdominal infection Acute kidney injury prerenal due to hypotension and dehydration. 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 Anxiety maintained on xanax scheduled which has been resumed and patients mood has improved. Continue with antibiotics IV cefepime and Flagyl Continue with normal saline 50 mL/h Continue with pain medication Wound VAC in place General surgery following Patient evaluated by account associate and infectious disease team Labs and medication were reviewed.. Continue same treatment. Continue with symptomatic treatment. Resume home medication. Monitor labs and vitals. DVT and GI prophylaxis. Further recommendations as per clinical course of the patient DVT prophylaxis: Subcutaneous heparin GI Prophylaxis: Ppi PT/OT: Pending Prognosis is guarded
[2024-02-10 06:12] LABS: Glucose,Whole Blood 110 mg/dL (70-110)
--- NOTE | 2024-02-10 11:09 | P.PN ---
Subjective Progress Note Date: 02/10/24 Principal diagnosis: Huntley's procedure 53-year-old male postop day 9 after Huntley's procedure. Tolerating diet. Complaining of back pain. Having stool through the ostomy. TPN was weaned. Objective - Vital Signs Vital signs: Vital Signs Temp 98.2 F 02/10/24 08:00 Pulse 88 02/10/24 08:00 Resp 16 02/10/24 08:00 BP 128/82 02/10/24 08:00 Pulse Ox 95 02/10/24 09:19 FiO2 Intake & Output 02/09/24 02/10/24 02/10/24 18:59 06:59 18:59 Intake Total 920 118 Output Total 3500 1575 600 Balance -7740 -1575 -482 Intake: Oral 920 118 Output: Urine 3300 1375 600 Stool 200 200 Other: Voiding Method Urinal Urinal Urinal - Exam Abdomen: Soft, nondistended, dressing clean and dry, ostomy functioning, minimal tenderness - Labs CBC & Chem 7: 02/09/24 07:29 02/09/24 07:29 Labs: Abnormal Lab Results - Last 24 Hours (Table) 02/09/24 Range/Units 07:29 Sodium 133 L (137-145) mmol/L BUN 8 L (9-20) mg/dL Creatinine 0.51 L (0.66-1.25) mg/dL Calcium 7.4 L (8.4-10.2) mg/dL C-Reactive Protein 16.5 H (<1.0) mg/dL Total Protein 5.0 L (6.3-8.2) g/dL Albumin 2.0 L (3.5-5.0) g/dL Assessment and Plan (1) Diverticulitis Narrative/Plan: 53-year-old male doing well after recent Huntley's procedure. Yesterday's white blood cell count did increase. Will recheck tomorrow. Continue diet as tolerated. Current Visit: Yes Status: Acute Code(s): K57.92 - DVTRCLI OF INTEST, PART UNSP, W/O PERF OR ABSCESS W/O BLEED SNOMED Code(s): 349912361
[2024-02-10 11:33] LABS: Glucose,Whole Blood 112 mg/dL (70-110)
[2024-02-10] MEDS: HYDROmorphone 0.5 MG/0.5 ML SYRINGE IVP PRN (14:02)
--- NOTE | 2024-02-10 15:15 | P.PN ---
Subjective Progress Note Date: 02/09/24 Principal diagnosis: Reason for follow-up is perforated diverticulitis with sepsis on admission Patient is a 53-year-old male with past medical history significant for diabetes mellitus hypertension anxiety bipolar depression and brain surgery patient presented to hospital with abdominal pain and this patient has been diagnosed with the ruptured diverticulitis and sepsis for the patient was transferred to [facility]. Patient is status post Exploratory laparotomy with sigmoid resection for perforated mid sigmoid colon, Descending colostomy and drainage of 1600 open abdominal abscess procedure completed on 01/31/2024. On today's evaluation that is 02/09/2024, patient has been afebrile, patient is breathing comfortably and is currently on room air, patient denies having any significant cough no chest pain shortness of breath, patient denies nausea vomit ing abdominal pain is currently controlled with pain medication. Patient white count is 18.0, creatinine 0.51 Objective - Vital Signs Vital signs: Vital Signs Temp 98.8 F 02/09/24 12:00 Pulse 96 02/09/24 14:00 Resp 18 02/09/24 14:00 BP 146/95 02/09/24 12:00 Pulse Ox 92 L 02/09/24 12:00 FiO2 Intake & Output 02/08/24 02/09/24 02/09/24 18:59 06:59 18:59 Intake Total 476 Output Total 2300 675 2200 Balance -2300 -675 -1724 Weight 123 kg Intake: Oral 476 Output: Urine 2200 675 2000 Stool 100 200 Other: Voiding Method Indwelling Catheter Urinal Urinal # Voids 1 - Exam GENERAL DESCRIPTION: Middle-age male lying in bed in no distress RESPIRATORY SYSTEM: Unlabored breathing , decreased breath sounds at bases HEART: S1 S2 regular rate and rhythm , ABDOMEN: Soft , mild tenderness EXTREMITIES: No edema feet - Labs CBC & Chem 7: 02/09/24 07:29 02/09/24 07:29 Labs: Abnormal Lab Results - Last 24 Hours (Table) 02/09/24 02/09/24 Range/Units 07:29 07:29 WBC 18.0 H (3.8-10.6) k/uL RBC 2.89 L (4.30-5.90) m/uL Hgb 8.6 L (13.0-17.5) gm/dL Hct 27.7 L (39.0-53.0) % MCHC 30.9 L (31.0-37.0) g/dL Plt Count 466 H (150-450) k/uL Neutrophils # 14.9 H (1.3-7.7) k/uL Lymphocytes # 0.8 L (1.0-4.8) k/uL Monocytes # 1.7 H (0-1.0) k/uL Sodium 133 L (137-145) mmol/L BUN 8 L (9-20) mg/dL Creatinine 0.51 L (0.66-1.25) mg/dL Calcium 7.4 L (8.4-10.2) mg/dL C-Reactive Protein 16.5 H (<1.0) mg/dL Total Protein 5.0 L (6.3-8.2) g/dL Albumin 2.0 L (3.5-5.0) g/dL Assessment and Plan (1) Penicillin allergy Current Visit: Yes Status: Acute Code(s): Z88.0 - ALLERGY STATUS TO PENICILLIN SNOMED Code(s): 71069974 (2) Perforation of sigmoid colon due to diverticulitis Current Visit: Yes Status: Acute Code(s): K57.20 - DVTRCLI OF LG INT W PERFORATION AND ABSCESS W/O BLEEDING SNOMED Code(s): 7935698992629948 (3) Peritonitis Current Visit: Yes Status: Acute Code(s): K65.9 - PERITONITIS, UNSPECIFIED SNOMED Code(s): 06655075 Plan: 1patient presented hospital with sepsis in this patient did have fever tachycardia source is acute ruptured appendicitis and peritonitis and will need to cover for enteric gram-negative to be the likely pathogen less likely gram- positive kike 2-penicillin allergy that will limit the number of antibiotics safe to use 3-patient repeat CT abdominal pelvis did shows diverticulitis with multiple foci of air and contained leak,patient is status post sigmoid colectomy descending colostomy and drainage of abdominal abscess cultures currently growing VRE, Hamida albicans and none albicans Hamida 4-patient is afebrile patient white count was slightly up today will be monitored closely, patient to continue cefepime Flagyl, daptomycin and Eraxis and monitor clinical course closely Dictation was produced using [employer] software. please excuse any grammatical, word or spelling errors. Time with Patient: Less than 30
--- NOTE | 2024-02-10 15:16 | P.PN ---
Subjective Progress Note Date: 02/10/24 Principal diagnosis: Reason for follow-up is perforated diverticulitis with sepsis on admission Patient is a 53-year-old male with past medical history significant for diabetes mellitus hypertension anxiety bipolar depression and brain surgery patient presented to hospital with abdominal pain and this patient has been diagnosed with the ruptured diverticulitis and sepsis for the patient was transferred to [facility]. Patient is status post Exploratory laparotomy with sigmoid resection for perforated mid sigmoid colon, Descending colostomy and drainage of 1600 open abdominal abscess procedure completed on 01/31/2024. On today's evaluation that is 02/10/2024, the patient continues to be afebrile, the patient is on room air and breathing comfortably, the Pt denies having any chest pain or cough, the patient mention abdominal pain is controlled with the pain medication denies any nausea no vomiting, feeling slightly better. No new labs were obtained today Objective - Vital Signs Vital signs: Vital Signs Temp 98.2 F 02/10/24 08:00 Pulse 84 02/10/24 11:48 Resp 16 02/10/24 11:48 BP 145/79 02/10/24 11:48 Pulse Ox 94 L 02/10/24 11:48 FiO2 Intake & Output 02/09/24 02/10/24 02/10/24 18:59 06:59 18:59 Intake Total 920 236 Output Total 3500 1575 1150 Balance -2580 -1575 -914 Intake: Oral 920 236 Output: Urine 3300 1375 1050 Stool 200 200 100 Other: Voiding Method Urinal Urinal Urinal - Exam GENERAL DESCRIPTION: Middle-age male lying in bed in no distress RESPIRATORY SYSTEM: Unlabored breathing , decreased breath sounds at bases HEART: S1 S2 regular rate and rhythm , ABDOMEN: Soft , mild tenderness EXTREMITIES: No edema feet - Labs CBC & Chem 7: 02/09/24 07:29 02/09/24 07:29 Labs: Abnormal Lab Results - Last 24 Hours (Table) 02/10/24 Range/Units 11:30 POC Glucose (mg/dL) 112 H (70-110) mg/dL Assessment and Plan (1) Penicillin allergy Current Visit: Yes Status: Acute Code(s): Z88.0 - ALLERGY STATUS TO PENICILLIN SNOMED Code(s): 89562757 (2) Perforation of sigmoid colon due to diverticulitis Current Visit: Yes Status: Acute Code(s): K57.20 - DVTRCLI OF LG INT W PERFORATION AND ABSCESS W/O BLEEDING SNOMED Code(s): 1350558078694705 (3) Peritonitis Current Visit: Yes Status: Acute Code(s): K65.9 - PERITONITIS, UNSPECIFIED SNOMED Code(s): 33950352 Plan: 1patient presented hospital with sepsis in this patient did have fever tachycardia source is acute ruptured appendicitis and peritonitis and will need to cover for enteric gram-negative to be the likely pathogen less likely gram- positive kike 2-penicillin allergy that will limit the number of antibiotics safe to use 3-patient repeat CT abdominal pelvis did shows diverticulitis with multiple foci of air and contained leak,patient is status post sigmoid colectomy descending colostomy and drainage of abdominal abscess cultures currently growing VRE, Hamida albicans and none albicans Hamida 4-patient is afebrile patient white count was slightly up yesterday no CBC was done today we will repeat a CBC with a.m. labs and continue cefepime Flagyl, daptomycin and Eraxis Dictation was produced using [employer] dictation software. please excuse any grammatical, word or spelling errors.
[2024-02-10 16:21] LABS: Glucose,Whole Blood 80 mg/dL (70-110)
[2024-02-10 20:32] LABS: Glucose,Whole Blood 114 mg/dL (70-110)
--- NOTE | 2024-02-10 22:15 | P.PN ---
Subjective 53-year-old gentleman past medical history significant for chronic back pain, history of hypertension, history of diabetes mellitus presented to the emergency department with complaints of acute onset of abdominal pain on top of chronic back pain. Patient states symptom onset was 24 hours prior to presentation. Patient said he has a progressive decrease in appetite and had vomited a few times before coming in. Patient said he had 4 small stools however abdominal pain persisted. Patient was sent as a transfer from an outside hospital due to concern for diverticulitis with perforation. General surgery team was contacted, patient was made n.p.o. consultation obtained from general surgery and infectious disease 02/02/2024 Patient is seen and evaluated in room at bedside; no specific complaints reported Vital signs are reviewed and temperature 98.4, pulse 82, respiration 18 and blood pressure 165/78 with O2 saturation 96% Labs revealed WBC of 22.7, improved from 23.7 yesterday, hemoglobin 11.4, platelet count of 238, sodium 138, potassium 4.1, BUNs/creatinine 18/0.76 and blood glucose of 113 -patient presented hospital with sepsis in this patient did have fever tachycardia source is acute ruptured appendicitis and peritonitis and will need to cover for enteric gram-negative to be the likely pathogen less likely gram-positive kike -penicillin allergy that will limit the number of antibiotics safe to use -patient repeat CT abdominal pelvis did shows diverticulitis with multiple foci of air and contained leak -patient white count slightly down today will monitor closely; continue with cefepime and Flagyl we will repeat CBC with a.m. lab 02/03/2024 Patient is seen and evaluated resting comfortably in bed; continues to report uncontrolled pain; reports his Dilaudid has been changed; ostomy not producing at this time Vital signs are reviewed and remained stable Lab review shows improved white blood count 16.3 hemoglobin of 9.6 and platelet count of 268, sodium 136, potassium 3.8, BUNs/creatinine of 12/0.5, phosphorus is low at 1.9 magnesium stable at 1.8 -we will supplement electrolytes and continue to monitor e will supplement electrolytes and continue to monitor --Surgery recommending to advance diet as tolerated 02/04/2024 Patient awake alert He has some abdominal pain tenderness, expected postoperatively, wound closed with wound VAC in place, left lower colostomy bag with small liquid brown stool. No vomiting, poor appetite He is on Dilaudid drip 0.2 and normal saline 50 mL/h 02/05/2024 Patient awake alert He is in distress due to abdominal pain, wound VAC in place He is still on TPN Eraxis added to IV Flagyl and cefepime. Midline is requested Plan for ECF on 02/06/2024 Patient abdominal pain is controlled today. He can tolerate some liquid diet with no vomiting He emptied his colostomy bag yesterday. This morning it has no or minimal discharge He remains on TPN Plan for midline Patient will benefit from ECF upon discharge. Currently on broad-spectrum antibiotic with cefepime, IV Flagyl, Eraxis and daptomycin, ID team on the case 02/07/2024 Patient continued to improve slowly and gradually He tolerates oral diet, still getting TPN Abdominal pain is better 3/10 This morning he emptied his colostomy bag No chest pain or dyspnea. He remains on daptomycin, cefepime Flagyl and antifungal switched to an indulfaungin 02/08/2024 Patient abdominal pain controlled Patient is getting TPN, with plan to taper it off No new complaints Patient can be transferred out of the select unit 02/09/2024 Patient also with significant abdominal pain, Is complaining from more severe back pain today requiring extra dose of Dilaudid Patient is stable 02/10/2024 Patient complains much of his back pain asking for better pain control stating that he is taking IV Dilaudid and is not more satisfied. Patient on IV Dilaudid 1 mg every 6 hours we lowered to 0.5 mg and increase frequency of oxycodone from every 6 hours up to every 4 hours. Patient remains on Eraxis, daptomycin and IV Flagyl and cefepime Objective - Vital Signs Vital signs: Vital Signs Temp 98.2 F 02/10/24 08:00 Pulse 88 02/10/24 08:00 Resp 16 02/10/24 08:00 BP 128/82 02/10/24 08:00 Pulse Ox 95 02/10/24 09:19 FiO2 Intake & Output 02/09/24 02/10/24 02/10/24 18:59 06:59 18:59 Intake Total 920 118 Output Total 3500 1575 600 Balance -2580 -1575 -482 Intake: Oral 920 118 Output: Urine 3300 1375 600 Stool 200 200 Other: Voiding Method Urinal Urinal Urinal - Exam GENERAL: The patient is alert and oriented x3, not in any acute distress. Well developed, well nourished. HEENT: Pupils are round and equally reacting to light. EOMI. No scleral icterus. No conjunctival pallor. Normocephalic, atraumatic. No pharyngeal erythema. No thyromegaly. CARDIOVASCULAR: S1 and S2 present. No murmurs, rubs, or gallops. PULMONARY: Chest is clear to auscultation, no wheezing , no crackles. - ABDOMEN: Soft, nontender, nondistended, normoactive bowel sounds. No palpable organomegaly. Left lower quadrant colostomy in place, vertical wound is closed with wound VAC in place MUSCULOSKELETAL: No joint swelling or deformity. EXTREMITIES: No cyanosis, clubbing, or pedal edema. NEUROLOGICAL: Gross neurological examination did not reveal any focal deficits. SKIN: No rashes. no petechiae. - Labs CBC & Chem 7: 02/09/24 07:29 02/09/24 07:29 Labs: Abnormal Lab Results - Last 24 Hours (Table) 02/10/24 Range/Units 11:30 POC Glucose (mg/dL) 112 H (70-110) mg/dL Assessment and Plan Assessment: Acute diverticulitis with perforation and localized abscess s/p surgical intervention exploratory laporotomy, sigmoid resection and descending colostomy and drainage of intra-abdominal abscess on 01/30 Sepsis secondary to intra-abdominal infection Acute kidney injury prerenal due to hypotension and dehydration. 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 Anxiety maintained on xanax scheduled which has been resumed and patients mood has improved. Continue with antibiotics IV cefepime and Flagyl Continue with normal saline 50 mL/h Continue with pain medication Wound VAC in place General surgery following Patient evaluated by process area supervisor and infectious disease team Labs and medication were reviewed.. Continue same treatment. Continue with symptomatic treatment. Resume home medication. Monitor labs and vitals. DVT and GI prophylaxis. Further recommendations as per clinical course of the patient DVT prophylaxis: Subcutaneous heparin GI Prophylaxis: Ppi PT/OT: Pending Prognosis is guarded
[2024-02-11 05:48] LABS: Glucose,Whole Blood 88 mg/dL (70-110)
[2024-02-11 10:52] LABS: African American GFR (CKD) >90 (>60 ml/min/1.73 sqM); Anion Gap 4 mmol/L; Blood Urea Nitrogen 7 mg/dL (9-20); Calcium 7.8 mg/dL (8.4-10.2); Carbon Dioxide 27 mmol/L (22-30); Chloride 102 mmol/L (98-107); Glucose 88 mg/dL (74-99); Non-African American GFR(CKD) >90 (>60 ml/min/1.73 sqM); Potassium 4.6 mmol/L (3.5-5.1); Sodium 133 mmol/L (137-145)
[2024-02-11 11:03] LABS: Basophils # (A) 0.1 k/uL (0-0.2); Basophils % (A) 1 %; Eosinophils # (A) 0.2 k/uL (0-0.7); Eosinophils % (A) 1 %; HCT 28.6 % (39.0-53.0); HGB 8.9 gm/dL (13.0-17.5); Hypochromasia Slight; Lymphocytes % (A) 5 %; MCH 30.1 pg (25.0-35.0); MCHC 30.9 g/dL (31.0-37.0); MCV 97.4 fL (80.0-100.0); Mean Platelet Volume 9.4; Monocytes # (A) 1.7 k/uL (0-1.0); Monocytes % (A) 9 %; Neutrophils # (A) 15.9 k/uL (1.3-7.7); Neutrophils % (A) 83 %; Platelet Count 466 k/uL (150-450); RBC 2.94 m/uL (4.30-5.90); RDW 13.9 % (11.5-15.5); WBC 19.1 k/uL (3.8-10.6)
[2024-02-11 11:24] LABS: Glucose,Whole Blood 95 mg/dL (70-110)
--- NOTE | 2024-02-11 12:35 | P.PN ---
Subjective Progress Note Date: 02/11/24 CHIEF COMPLAINT: Diverticulitis HISTORY OF PRESENT ILLNESS: The patient is a 53-year-old male status post Huntley's procedure for perforated sigmoid diverticulitis with peritonitis, 01/31/2024. He denies moderate abdominal pain. WBC continues to elevate. He is eager to go home. His is at bedside. He is tolerating diet. He is having bowel movements through his ostomy. Per discussion with healthcare team, patient has new drainage along his midline incision. ROS: No reports of nausea and vomiting. No fevers or chills. No new chest pain. No productive sputum PHYSICAL EXAM: VITAL SIGNS: Reviewed CONSTITUTIONAL: Well developed and in no acute distress. EYES: Conjuctivae without sclera icterus. Extraocular movements grossly intact. HEAD, EARS, NOSE, THROAT: Moist buccal mucosa. Head is atraumatic, normocephalic. Hears conversational speech. No nasal drainage. RESPIRATORY: Non-labored respirations and equal bilateral excursions. CARDIOVASCULAR: Palpable 2+ radial pulses. ABDOMEN: Dressing intact. Ostomy with stool. MUSCULOSKELETAL: No gross deformity of the lower extremities noted. No clubbing. No cyanosis. SKIN: Good skin turgor. Well perfused. NEUROLOGIC: Cranial nerves II through XII grossly intact. No focal or lateralizing signs. PSYCH: Appropriate affect. Alert and oriented to person, place and time. CLINICAL LABS: Reviewed. WBC up from 12.6-19.1, leukocytosis. Creatinine normal 0.52 MICRO: Positive for vancomycin-resistant Enterococcus ASSESSMENT: 1. Perforated sigmoid diverticulitis with peritonitis 2. Acute renal failure, resolved 3. Huntley's procedure with descending colostomy 4. Sepsis present on admission 5. Compression fracture lumbar spine PLAN: 1. Immediate CT of the abdomen pelvis being ordered is that he continue to have upward trend of leukocytosis for risk of intra-abdominal abscess 2. Discontinue TPN 3. Discussion with patient and at bedside regarding transfer to extended care facility/rehab to address complex antibiotic management including physical therapy due to chronic back pain due to compression fracture Objective - Vital Signs Vital signs: Vital Signs Temp 98.4 F 02/11/24 08:00 Pulse 80 02/11/24 08:00 Resp 16 02/11/24 08:00 BP 117/77 02/11/24 08:00 Pulse Ox 95 02/11/24 08:00 FiO2 Intake & Output 02/10/24 02/11/24 02/11/24 18:59 06:59 18:59 Intake Total 236 0 Output Total 1600 1500 Balance -1364 -1500 0 Intake: Oral 236 0 Output: Urine 1500 1300 Stool 100 200 Other: Voiding Method Urinal Urinal Urinal - Labs CBC & Chem 7: 02/11/24 09:35 02/11/24 09:35 Labs: Abnormal Lab Results - Last 24 Hours (Table) 02/10/24 02/11/24 02/11/24 Range/Units 20:30 09:35 09:35 WBC 19.1 H (3.8-10.6) k/uL RBC 2.94 L (4.30-5.90) m/uL Hgb 8.9 L (13.0-17.5) gm/dL Hct 28.6 L (39.0-53.0) % MCHC 30.9 L (31.0-37.0) g/dL Plt Count 466 H (150-450) k/uL Neutrophils # 15.9 H (1.3-7.7) k/uL Monocytes # 1.7 H (0-1.0) k/uL Sodium 133 L (137-145) mmol/L BUN 7 L (9-20) mg/dL Creatinine 0.52 L (0.66-1.25) mg/dL POC Glucose (mg/dL) 114 H (70-110) mg/dL Calcium 7.8 L (8.4-10.2) mg/dL
[2024-02-11] MEDS: IOPAMIDOL CONTRAST (ORAL USE) VIAL PO PRN (14:18)
--- NOTE | 2024-02-11 16:18 | CT ---
EXAMINATION TYPE: CT abdomen pelvis w con CT DLP: 2454.3 mGycm, Automated exposure control for dose reduction was used. DATE OF EXAM: 02/11/2024 4:06 PM COMPARISON: CT abdomen pelvis most recent from 01/27/2024 CLINICAL INDICATION:Male, 53 years old with history of Perforated diverticulitis, ostomy; Perforated diverticulitis, ostomy TECHNIQUE: Axial CT abdomen pelvis w con;Sagittal and coronal reformats were created on a separate w orkstation. Contrast used:100ml mL of Isovue 300 with IV Contrast, (none if empty) Oral contrast used: with Oral Contrast (none if empty) FINDINGS: LOWER CHEST: Moderate to severe coronary artery atherosclerosis. Small right pleural effusion with tr santos left pleural effusion. There is associated atelectasis. ABDOMEN LIVER: Fluid collection over the right hepatic lobe capsule peripheral rim. GALLBLADDER AND BILE DUCTS: Unremarkable. PANCREAS: Unremarkable. SPLEEN: Unremarkable. ADRENAL GLANDS: Unremarkable. KIDNEYS AND URETERS: Bilateral nonobstructing renal calculi. No evidence for obstructive uropathy. PELVIS BLADDER: Unremarkable REPRODUCTIVE: Unremarkable. ABDOMEN & PELVIS STOMACH AND BOWEL: Diverting colostomy changes of the colon. No evidence for obstruction. PERITONEUM/RETROPERITONEUM: No evidence of pneumoperitoneum. There is free fluid throughout the abdom en which has increased from prior on 01/27/2024. The largest fluid collection along the right paracolic gutter measuring 24 x 14.8 x 9.2 cm which extends up along the liver capsule. Another fluid collecti on extending along the left paracolic gutter and resting just above the urinary bladder measuring up to 14.8 x 4.5 cm in the pelvis VASCULATURE: No evidence of aortic aneurysm. Severe atherosclerosis of the arterial vasculature. MUSCULOSKELETAL: No acute osseous abnormalities LYMPH NODES: No gross evidence for lymphadenopathy. SOFT TISSUE/ABDOMINAL WALL: Postsurgical changes anterior abdominal wall. IMPRESSION: 1. Progression of complicated diverticulitis with large fluid collections throughout the abdomen wit h well-circumscribed enhancing wall collections bilaterally abscess/peritonitis. 2. Small right and trace left pleural effusions.
[2024-02-11 16:25] LABS: Glucose,Whole Blood 126 mg/dL (70-110)
[2024-02-11 20:03] LABS: Glucose,Whole Blood 92 mg/dL (70-110)
--- NOTE | 2024-02-11 20:19 | P.PN ---
Progress Note - Text Progress Note Date: 02/11/24 Notified by RN regarding new CT scan results available. Large fluid collection along right abdomen and pelvis following recent abdominal wash out, large volume over 6-L and pelvic fluid. Patient otherwise non-febrile, non-toxic in appearance with functioning ostomy and tolerating diet. Consultation to interventional radiology for placement of drain initiated.
--- NOTE | 2024-02-11 22:28 | P.PN ---
Subjective Progress Note Date: 02/11/24 Principal diagnosis: Reason for follow-up is perforated diverticulitis with sepsis on admission Patient is a 53-year-old male with past medical history significant for diabetes mellitus hypertension anxiety bipolar depression and brain surgery patient presented to hospital with abdominal pain and this patient has been diagnosed with the ruptured diverticulitis and sepsis for the patient was transferred to [facility]. Patient is status post Exploratory laparotomy with sigmoid resection for perforated mid sigmoid colon, Descending colostomy and drainage of 1600 open abdominal abscess procedure completed on 01/31/2024. On today's evaluation that is 02/11/2024,the patient remains to be afebrile, patient is on 2 L nasal cannula supplemental oxygen and denies any shortness of breath no chest pain or cough.Patient denies having any nausea or vomiting, abdominal pain is currently controlled with the pain medication and did have output in his colostomy. Patient noted to have white count of 19.1 creatinine 0.52 Objective - Vital Signs Vital signs: Vital Signs Temp 98.4 F 02/11/24 08:00 Pulse 80 02/11/24 08:00 Resp 16 02/11/24 08:00 BP 117/77 02/11/24 08:00 Pulse Ox 95 02/11/24 08:00 FiO2 Intake & Output 02/10/24 02/11/24 02/11/24 18:59 06:59 18:59 Intake Total 236 110 Output Total 1600 1500 450 Balance -1364 -1500 -340 Intake: Oral 236 110 Output: Urine 1500 1300 450 Stool 100 200 Other: Voiding Method Urinal Urinal Urinal - Exam GENERAL DESCRIPTION: Middle-age male lying in bed in no distress RESPIRATORY SYSTEM: Unlabored breathing , decreased breath sounds at bases HEART: S1 S2 regular rate and rhythm , ABDOMEN: Soft , mild tenderness EXTREMITIES: No edema feet - Labs CBC & Chem 7: 02/11/24 09:35 02/11/24 09:35 Labs: Abnormal Lab Results - Last 24 Hours (Table) 02/10/24 02/11/24 02/11/24 Range/Units 20:30 09:35 09:35 WBC 19.1 H (3.8-10.6) k/uL RBC 2.94 L (4.30-5.90) m/uL Hgb 8.9 L (13.0-17.5) gm/dL Hct 28.6 L (39.0-53.0) % MCHC 30.9 L (31.0-37.0) g/dL Plt Count 466 H (150-450) k/uL Neutrophils # 15.9 H (1.3-7.7) k/uL Monocytes # 1.7 H (0-1.0) k/uL Sodium 133 L (137-145) mmol/L BUN 7 L (9-20) mg/dL Creatinine 0.52 L (0.66-1.25) mg/dL POC Glucose (mg/dL) 114 H (70-110) mg/dL Calcium 7.8 L (8.4-10.2) mg/dL Assessment and Plan (1) Penicillin allergy Current Visit: Yes Status: Acute Code(s): Z88.0 - ALLERGY STATUS TO PENICILLIN SNOMED Code(s): 12047680 (2) Perforation of sigmoid colon due to diverticulitis Current Visit: Yes Status: Acute Code(s): K57.20 - DVTRCLI OF LG INT W PERFORATION AND ABSCESS W/O BLEEDING SNOMED Code(s): 4307437051159644 (3) Peritonitis Current Visit: Yes Status: Acute Code(s): K65.9 - PERITONITIS, UNSPECIFIED SNOMED Code(s): 38335050 Plan: 1patient presented hospital with sepsis in this patient did have fever tachycardia source is acute ruptured appendicitis and peritonitis and will need to cover for enteric gram-negative to be the likely pathogen less likely gram- positive kike 2-penicillin allergy that will limit the number of antibiotics safe to use 3-patient repeat CT abdominal pelvis did shows diverticulitis with multiple foci of air and contained leak,patient is status post sigmoid colectomy descending colostomy and drainage of abdominal abscess cultures currently growing VRE, Hamida albicans and none albicans Hamida 4-patient is afebrile however the patient noticed a worsening of the white count and the patient benefit from a repeat CT abdominal pelvis which has been ordered by surgical team results will be followed up for now continue cefepime Flagyl, daptomycin and Eraxis Dictation was produced using [employer] dictation software. please excuse any grammatical, word or spelling errors. Time with Patient: Less than 30
--- NOTE | 2024-02-12 05:33 | P.PN ---
Subjective Progress Note Date: 02/11/24 53-year-old gentleman past medical history significant for chronic back pain, history of hypertension, history of diabetes mellitus presented to the emergency department with complaints of acute onset of abdominal pain on top of chronic back pain. Patient states symptom onset was 24 hours prior to presentation. Patient said he has a progressive decrease in appetite and had vomited a few times before coming in. Patient said he had 4 small stools however abdominal pain persisted. Patient was sent as a transfer from an outside hospital due to concern for diverticulitis with perforation. General surgery team was contacted, patient was made n.p.o. consultation obtained from general surgery and infectious disease 02/02/2024 Patient is seen and evaluated in room at bedside; no specific complaints reported Vital signs are reviewed and temperature 98.4, pulse 82, respiration 18 and blood pressure 165/78 with O2 saturation 96% Labs revealed WBC of 22.7, improved from 23.7 yesterday, hemoglobin 11.4, platelet count of 238, sodium 138, potassium 4.1, BUNs/creatinine 18/0.76 and blood glucose of 113 -patient presented hospital with sepsis in this patient did have fever tachycardia source is acute ruptured appendicitis and peritonitis and will need to cover for enteric gram-negative to be the likely pathogen less likely gram- positive kike -penicillin allergy that will limit the number of antibiotics safe to use -patient repeat CT abdominal pelvis did shows diverticulitis with multiple foci of air and contained leak -patient white count slightly down today will monitor closely; continue with cefepime and Flagyl we will repeat CBC with a.m. lab 02/03/2024 Patient is seen and evaluated resting comfortably in bed; continues to report uncontrolled pain; reports his Dilaudid has been changed; ostomy not producing at this time Vital signs are reviewed and remained stable Lab review shows improved white blood count 16.3 hemoglobin of 9.6 and platelet count of 268, sodium 136, potassium 3.8, BUNs/creatinine of 12/0.5, phosphorus is low at 1.9 magnesium stable at 1.8 -we will supplement electrolytes and continue to monitor e will supplement electrolytes and continue to monitor --Surgery recommending to advance diet as tolerated 02/04/2024 Patient awake alert He has some abdominal pain tenderness, expected postoperatively, wound closed with wound VAC in place, left lower colostomy bag with small liquid brown stool. No vomiting, poor appetite He is on Dilaudid drip 0.2 and normal saline 50 mL/h 02/05/2024 Patient awake alert He is in distress due to abdominal pain, wound VAC in place He is still on TPN Eraxis added to IV Flagyl and cefepime. Midline is requested Plan for ECF on 02/06/2024 Patient abdominal pain is controlled today. He can tolerate some liquid diet with no vomiting He emptied his colostomy bag yesterday. This morning it has no or minimal discharge He remains on TPN Plan for midline Patient will benefit from ECF upon discharge. Currently on broad-spectrum antibiotic with cefepime, IV Flagyl, Eraxis and daptomycin, ID team on the case 02/07/2024 Patient continued to improve slowly and gradually He tolerates oral diet, still getting TPN Abdominal pain is better 3/10 This morning he emptied his colostomy bag No chest pain or dyspnea. He remains on daptomycin, cefepime Flagyl and antifungal switched to an indulfaungin 02/08/2024 Patient abdominal pain controlled Patient is getting TPN, with plan to taper it off No new complaints Patient can be transferred out of the select unit 02/09/2024 Patient also with significant abdominal pain, Is complaining from more severe back pain today requiring extra dose of Dilaudid Patient is stable 02/10/2024 Patient complains much of his back pain asking for better pain control stating that he is taking IV Dilaudid and is not more satisfied. Patient on IV Dilaudid 1 mg every 6 hours we lowered to 0.5 mg and increase frequency of oxycodone from every 6 hours up to every 4 hours. Patient remains on Eraxis, daptomycin and IV Flagyl and cefepime 02/11/2024 Patient is seen and evaluated in follow-up today with general surgery and infectious disease following. Patient is maintained on antibiotics and does have a PICC line. Surgical digna of the abdomen including sites appear well- approximated although patient continues to have some abdominal distention. Patient is having bowel movements although continued abdominal pain. Plan is for repeat CT abdomen today. Will await report and appreciate input and recommendations from surgery. Case management/social work following as patient will be needing rehab on discharge for continued strength and mobility as patient has had significant clinical decline and extreme weakness. Patient has been encouraged to use incentive spirometer at least 10 times every hour while awake. at the bedside questions and concerns that were answered. Review of systems: Constitutional: No reports of fatigue, fever, or chills Cardiovascular: No reports of chest pain or palpitations Respiratory: No reports of shortness of breath or cough GI: reports of intermittent nausea, no vomiting, reports having bowel movements in the ostomy, liquid, reports gas, reports abdominal pain and distention : No reports of dysuria or retention Neurovascular: reports of generalized weakness Active Medications Acetaminophen (Acetaminophen Tab 500 Mg Tab) 1,000 mg PO Q6HR [facility] Last Admin: 02/12/24 00:17 Dose: 1,000 mg Alprazolam (Alprazolam 1 Mg Tab) 1 mg PO 0800,1400,2000 [facility] Last Admin: 02/11/24 19:41 Dose: 1 mg Dextrose/Water (Dextrose 50% Syringe 50 Ml) 25 ml IVP PER PROTOCOL PRN; Protocol PRN Reason: Hypoglycemia Last Admin: 01/27/24 04:31 Dose: 25 ml Dextrose/Water (Dextrose 50% Syringe 50 Ml) 50 ml IVP PER PROTOCOL PRN; Protocol PRN Reason: Hypoglycemia Last Admin: 01/27/24 12:40 Dose: 50 ml Heparin Sodium (Porcine) (Heparin Sodium,Porcine 5,000 Unit/Ml 1 Ml Vial) 5,000 unit SQ Q12HR [facility] Last Admin: 02/11/24 19:40 Dose: 5,000 unit Hydralazine HCl (Hydralazine Hcl 20 Mg/Ml 1 Ml Vial) 5 mg IVP Q6HR PRN PRN Reason: Blood Pressure - High Hydromorphone HCl (Hydromorphone 0.5 Mg/0.5 Ml Syringe) 0.5 mg IVP Q6HR PRN PRN Reason: Pain Last Admin: 02/12/24 01:47 Dose: 0.5 mg Metronidazole 500 mg/ IV (Solution) 100 mls @ 100 mls/hr IVPB Q6HR [facility]; Protocol Last Admin: 02/12/24 00:15 Dose: 100 mls/hr Cefepime HCl 2 gm/ Sodium (Chloride) 100 mls @ 25 mls/hr IVPB Q8HR [facility]; Protocol Last Admin: 02/12/24 00:16 Dose: 25 mls/hr Daptomycin 600 mg/ Sodium (Chloride) 50 mls @ 100 mls/hr IVPB Q24H [facility] Last Admin: 02/11/24 10:49 Dose: 100 mls/hr Anidulafungin 100 mg/ Sodium (Chloride) 100 mls @ 84 mls/hr IVPB DAILY@1600 [facility]; Protocol Last Admin: 02/11/24 16:39 Dose: 84 mls/hr Insulin Aspart (Insulin Aspart (Novolog) 100 Unit/Ml Vial) 0 unit SQ ACHS [facility]; Protocol Last Admin: 02/11/24 20:43 Dose: Not Given Lorazepam (Lorazepam 1 Mg/0.5 Ml Vial) 1 mg IV Q6HR PRN PRN Reason: Anxiety Meclizine HCl (Meclizine 25 Mg Tab) 25 mg PO TID PRN PRN Reason: Motion Sickness Melatonin (Melatonin 5 Mg Tablet) 5 mg PO [facility] Last Admin: 02/11/24 19:42 Dose: 5 mg Methocarbamol (Methocarbamol 750 Mg Tab) 750 mg PO TID PRN PRN Reason: Muscle Spasm Last Admin: 02/10/24 08:30 Dose: 750 mg Miscellaneous Information (Phosphorus Replacement Protoco 1 Each Misc) 1 each MISCELLANE DAILY PRN; Protocol PRN Reason: Per Protocol Miscellaneous Information (Magnesium Replacement Protocol 1 Each Misc) 1 each MISCELLANE DAILY PRN; Protocol PRN Reason: Per Protocol Naloxone HCl (Naloxone 0.4 Mg/Ml 1 Ml Vial) 0.2 mg IV Q2M PRN PRN Reason: Opioid Reversal Ondansetron HCl (Ondansetron 4 Mg/2 Ml Vial) 4 mg IVP Q8HR PRN PRN Reason: Nausea And Vomiting Last Admin: 01/26/24 05:20 Dose: 4 mg Oxycodone HCl (Oxycodone Hcl 5 Mg Tab) 15 mg PO Q4H PRN PRN Reason: Moderate Pain (Scale 4 to 6) Last Admin: 02/12/24 04:13 Dose: 15 mg Pantoprazole Sodium (Pantoprazole 40 Mg/10 Ml Vial) 40 mg IV DAILY [facility] Last Admin: 02/11/24 08:35 Dose: 40 mg Paroxetine HCl (Paroxetine 20 Mg Tab) 40 mg PO [facility] Last Admin: 02/11/24 19:42 Dose: 40 mg Pregabalin (Pregabalin 75 Mg Cap) 150 mg PO BID [facility] Last Admin: 02/11/24 19:41 Dose: 150 mg Physical exam: GENERAL: The patient is alert and oriented x3, obese. Well developed, well nourished. HEENT: Pupils are round and equally reacting to light. EOMI. No scleral icterus. No conjunctival pallor. Normocephalic, atraumatic. No pharyngeal erythema. No thyromegaly. CARDIOVASCULAR: S1 and S2 muffled PULMONARY: Diminished breath sounds bilaterally otherwise chest is clear to auscultation, no wheezing , no crackles. ABDOMEN: Soft, tender on palpation, somewhat distended, normoactive bowel sounds. No palpable organomegaly. Left lower quadrant colostomy in place, vertical wound with multiple digna noted appears well-approximated MUSCULOSKELETAL: No joint swelling or deformity. EXTREMITIES: No cyanosis, clubbing, or pedal edema. Generalized edema noted of lower extremities NEUROLOGICAL: Gross neurological examination did not reveal any focal deficits. Diffusely weak SKIN: No rashes. no petechiae. Pale Assessment: Acute diverticulitis with perforation and localized abscess s/p surgical intervention exploratory laporotomy, sigmoid resection and descending colostomy and drainage of intra-abdominal abscess on 01/30 Sepsis secondary to intra-abdominal infection Acute kidney injury prerenal due to hypotension and dehydration. 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 Anxiety maintained on xanax scheduled which has been resumed and patients mood has improved. Obesity with a BMI of 37.8 GI prophylaxis DVT prophylaxis Full code Plan: Continue with antibiotics IV cefepime and Flagyl and infectious disease following. Patient does have a PICC line and will likely require IV antibiotics outpatient Continue Wound VAC and local wound care per general surgery and infectious disease General surgery following and patient continues to have some abdominal discomfort and distention with repeat CT abdomen ordered and pending for today Recommend PT/OT therapy daily. Case management following as patient will need ECF on discharge Recommend repeat labs in the a.m. and replace electrolytes per protocol Encouraged oral intake with diet recommendations per surgery Continue incentive spirometer use at least 10 times every hour while awake Due to multiple complex medical issues, prognosis is guarded The impression and plan of care has been dictated by An Liu Nurse Practitioner as directed. Dr. Denny MD I have performed a history and examination and MDM of this patient, discussed the same with the dictator, and agree with the dictator's assessment and plan as written ,documented as a scribe. Based on total visit time, I have performed more than 50% of the visit. Objective - Vital Signs Vital signs: Vital Signs Temp 98.4 F 02/11/24 08:00 Pulse 80 02/11/24 08:00 Resp 16 02/11/24 08:00 BP 117/77 02/11/24 08:00 Pulse Ox 95 02/11/24 08:00 FiO2 Intake & Output 02/10/24 02/11/24 02/11/24 18:59 06:59 18:59 Intake Total 236 0 Output Total 1600 1500 Balance -1364 -1500 0 Intake: Oral 236 0 Output: Urine 1500 1300 Stool 100 200 Other: Voiding Method Urinal Urinal - Labs CBC & Chem 7: 02/11/24 09:35 02/11/24 09:35 Labs: Abnormal Lab Results - Last 24 Hours (Table) 02/10/24 02/10/24 Range/Units 11:30 20:30 POC Glucose (mg/dL) 112 H 114 H (70-110) mg/dL
[2024-02-12 05:52] LABS: Glucose,Whole Blood 93 mg/dL (70-110)
--- NOTE | 2024-02-12 08:36 | XR ---
EXAMINATION TYPE: XR chest 1V portable DATE OF EXAM: 02/12/2024 7:19 AM CLINICAL INDICATION:Male, 53 years old with history of short of breath; COMPARISON: None TECHNIQUE: XR chest 1V portable Frontal view of the chest. FINDINGS: Lungs/Pleura: Blunting of the right costophrenic angle with associated atelectasis. Increased lucency in the lung apices. There is no evidence of left pleural effusion, focal consolidation, or pneumotho rax. Pulmonary vascularity: Unremarkable. Heart/mediastinum: Cardiomediastinal silhouette is unremarkable. Musculoskeletal: No acute osseous pathology. There is lower spine fixation hardware is present. Left PICC with tip terminating in the superior vena cava. IMPRESSION: 1. Right pleural effusion with associated atelectasis. 2. COPD changes.
[2024-02-12 10:40] LABS: Basophils # (A) 0.1 k/uL (0-0.2); Basophils % (A) 0 %; Eosinophils # (A) 0.2 k/uL (0-0.7); Eosinophils % (A) 1 %; HCT 27.9 % (39.0-53.0); HGB 8.8 gm/dL (13.0-17.5); Hypochromasia Slight; Lymphocytes # (A) 1.1 k/uL (1.0-4.8); Lymphocytes % (A) 7 %; MCH 29.9 pg (25.0-35.0); MCHC 31.4 g/dL (31.0-37.0); MCV 95.1 fL (80.0-100.0); Mean Platelet Volume 9.2; Monocytes # (A) 1.3 k/uL (0-1.0); Monocytes % (A) 8 %; Neutrophils % (A) 82 %; Platelet Count 508 k/uL (150-450); RBC 2.93 m/uL (4.30-5.90); WBC 15.9 k/uL (3.8-10.6)
[2024-02-12 10:49] LABS: ALT 8 U/L (4-49); AST 26 U/L (17-59); African American GFR (CKD) >90 (>60 ml/min/1.73 sqM); Albumin 2.2 g/dL (3.5-5.0); Alkaline Phosphatase 116 U/L (38-126); Anion Gap 2 mmol/L; Blood Urea Nitrogen 7 mg/dL (9-20); Calcium 7.9 mg/dL (8.4-10.2); Carbon Dioxide 30 mmol/L (22-30); Chloride 102 mmol/L (98-107); Glucose 77 mg/dL (74-99); Magnesium 1.4 mg/dL (1.6-2.3); Non-African American GFR(CKD) >90 (>60 ml/min/1.73 sqM); Potassium 4.6 mmol/L (3.5-5.1); Sodium 134 mmol/L (137-145); Total Bilirubin 0.3 mg/dL (0.2-1.3); Total Protein 5.3 g/dL (6.3-8.2)
[2024-02-12 11:31] LABS: Glucose,Whole Blood 108 mg/dL (70-110)
--- NOTE | 2024-02-12 11:34 | P.PN ---
Subjective Progress Note Date: 02/12/24 CHIEF COMPLAINT: Diverticulitis HISTORY OF PRESENT ILLNESS: Patient is status post exploratory with sigmoid resection for perforated mid sigmoid colon and descending colostomy on 01/31/24. Patient reports his pain is controlled. He denies any nausea or vomiting. His ostomy is functioning. His CT scan abdomen pelvis had reported progression of complicated diverticulitis with fluid collection. Patient scheduled for drainage of fluid collection with IR service today. Afebrile. WBC is down from 19-15.9 Hgb 8.8 platelets 508 magnesium 1.4 PHYSICAL EXAM: VITAL SIGNS: Reviewed GENERAL: Well-developed in no acute distress. HEENT: No sclera icterus. Extraocular movements grossly intact. Moist buccal mucosa. Head is atraumatic, normocephalic. Hears conversational speech. No nasal drainage. NECK: Supple without lymphadenopathy. CHEST: Non-labored respirations and equal bilateral excursions. CARDIOVASCULAR: Palpable 2+ radial pulses. ABDOMEN: Soft. Nondistended. Abdominal incision with drainage distally noted on incisional dressing. Ostomy functioning MUSCULOSKELETAL: No clubbing or cyanosis. NEUROLOGIC: No focal or lateralizing signs. Cranial nerves II through XII grossly intact. PSYCH: Appropriate affect. Alert and oriented to person, place and time. SKIN: Well perfused. Good skin turgor. ASSESSMENT: 1. Perforated complicated sigmoid diverticulitis with pelvic abscess. Culture with VRE and Hamida 2. Sepsis present on admission due to perforated diverticulitis 3. Obesity due to excess calories, BMI 34.4 4. Chronic back pain 5. Diabetes type 2 [id number] 6. Hypertensive heart disease 7. Hyperlipidemia 8. Depressive disorder 9. Generalized anxiety disorder 10. Bipolar disorder 11. Severe protein calorie malnutrition 12. Hypomagnesemia 13. Right abdominal abscess. Fluid collection noted on CT scan PLAN: -Patient scheduled for drainage of abdominal abscess by interventional radiology today -Continue antibiotics -Continue to monitor CBC -Continue pain management -Continue low fiber diet -Continue to monitor incision site -Patient will need ECF at discharge -Replace magnesium -DVT prophylaxis subcu heparin and GI prophylaxis Protonix Physician Application Architect Manager note has been reviewed by physician. Signing provider agrees with the documented findings, assessment, and plan of care. Objective - Vital Signs Vital signs: Vital Signs Temp 98.4 F 02/12/24 08:00 Pulse 74 02/12/24 08:00 Resp 16 02/12/24 08:00 BP 135/90 02/12/24 08:00 Pulse Ox 92 L 02/12/24 08:00 FiO2 Intake & Output 02/11/24 02/12/24 02/12/24 18:59 06:59 18:59 Intake Total 110 Output Total 650 3500 300 Balance -540 -3500 -300 Weight 123 kg Intake: Oral 110 Output: Urine 450 3500 300 Stool 200 Other: Voiding Method Urinal Urinal Urinal - Labs CBC & Chem 7: 02/12/24 09:00 02/12/24 09:00 Labs: Abnormal Lab Results - Last 24 Hours (Table) 02/11/24 02/12/24 02/12/24 Range/Units 16:22 09:00 09:00 WBC 15.9 H (3.8-10.6) k/uL RBC 2.93 L (4.30-5.90) m/uL Hgb 8.8 L (13.0-17.5) gm/dL Hct 27.9 L (39.0-53.0) % Plt Count 508 H (150-450) k/uL Neutrophils # 13.0 H (1.3-7.7) k/uL Monocytes # 1.3 H (0-1.0) k/uL Sodium 134 L (137-145) mmol/L BUN 7 L (9-20) mg/dL Creatinine 0.49 L (0.66-1.25) mg/dL POC Glucose (mg/dL) 126 H (70-110) mg/dL Calcium 7.9 L (8.4-10.2) mg/dL Magnesium 1.4 L (1.6-2.3) mg/dL Total Protein 5.3 L (6.3-8.2) g/dL Albumin 2.2 L (3.5-5.0) g/dL
[2024-02-12] MEDS: MAGNESIUM SULFATE-D5W PMX 1 GM in DEXTROSE/WATER 1 100ML.BAG IVPB SCH (11:53)
[2024-02-12 13:15] LABS: INR 1.2 (<1.2); Prothrombin Time 12.7 sec (10.0-12.5)
--- NOTE | 2024-02-12 16:15 | P.PN ---
Subjective Progress Note Date: 02/12/24 Principal diagnosis: Reason for follow-up is perforated diverticulitis with sepsis on admission Patient is a 53-year-old male with past medical history significant for diabetes mellitus hypertension anxiety bipolar depression and brain surgery patient presented to hospital with abdominal pain and this patient has been diagnosed with the ruptured diverticulitis and sepsis for the patient was transferred to [facility]. Patient is status post Exploratory laparotomy with sigmoid resection for perforated mid sigmoid colon, Descending colostomy and drainage of 1600 open abdominal abscess procedure completed on 01/31/2024. On today's evaluation that is 02/12/2024, the patient continues to be afebrile, the patient is on 2 L nasal cannula oxygen and breathing comfortably, the Pt denies having any chest pain or cough, the patient denies having any worsening abdominal pain no vomiting did have output in his colostomy. Patient white count is down to 15.9, creatinine 0.49 Objective - Vital Signs Vital signs: Vital Signs Temp 98.4 F 02/12/24 08:00 Pulse 74 02/12/24 08:00 Resp 16 02/12/24 08:00 BP 135/90 02/12/24 08:00 Pulse Ox 92 L 02/12/24 08:00 FiO2 Intake & Output 02/11/24 02/12/24 02/12/24 18:59 06:59 18:59 Intake Total 110 Output Total 650 3500 800 Balance -540 -3500 -800 Weight 123 kg Intake: Oral 110 Output: Urine 450 3500 700 Stool 200 100 Other: Voiding Method Urinal Urinal Urinal - Exam GENERAL DESCRIPTION: Middle-age male lying in bed in no distress RESPIRATORY SYSTEM: Unlabored breathing , decreased breath sounds at bases HEART: S1 S2 regular rate and rhythm , ABDOMEN: Soft , mild tenderness EXTREMITIES: No edema feet - Labs CBC & Chem 7: 02/12/24 09:00 02/12/24 09:00 Labs: Abnormal Lab Results - Last 24 Hours (Table) 02/11/24 02/12/24 02/12/24 Range/Units 16:22 09:00 09:00 WBC 15.9 H (3.8-10.6) k/uL RBC 2.93 L (4.30-5.90) m/uL Hgb 8.8 L (13.0-17.5) gm/dL Hct 27.9 L (39.0-53.0) % Plt Count 508 H (150-450) k/uL Neutrophils # 13.0 H (1.3-7.7) k/uL Monocytes # 1.3 H (0-1.0) k/uL PT (10.0-12.5) sec INR (<1.2) Sodium 134 L (137-145) mmol/L BUN 7 L (9-20) mg/dL Creatinine 0.49 L (0.66-1.25) mg/dL POC Glucose (mg/dL) 126 H (70-110) mg/dL Calcium 7.9 L (8.4-10.2) mg/dL Magnesium 1.4 L (1.6-2.3) mg/dL Total Protein 5.3 L (6.3-8.2) g/dL Albumin 2.2 L (3.5-5.0) g/dL 02/12/24 Range/Units 12:58 WBC (3.8-10.6) k/uL RBC (4.30-5.90) m/uL Hgb (13.0-17.5) gm/dL Hct (39.0-53.0) % Plt Count (150-450) k/uL Neutrophils # (1.3-7.7) k/uL Monocytes # (0-1.0) k/uL PT 12.7 H (10.0-12.5) sec INR 1.2 H (<1.2) Sodium (137-145) mmol/L BUN (9-20) mg/dL Creatinine (0.66-1.25) mg/dL POC Glucose (mg/dL) (70-110) mg/dL Calcium (8.4-10.2) mg/dL Magnesium (1.6-2.3) mg/dL Total Protein (6.3-8.2) g/dL Albumin (3.5-5.0) g/dL Assessment and Plan (1) Penicillin allergy Current Visit: Yes Status: Acute Code(s): Z88.0 - ALLERGY STATUS TO PENICILLIN SNOMED Code(s): 16230436 (2) Perforation of sigmoid colon due to diverticulitis Current Visit: Yes Status: Acute Code(s): K57.20 - DVTRCLI OF LG INT W PERFORATION AND ABSCESS W/O BLEEDING SNOMED Code(s): 5289614296672029 (3) Peritonitis Current Visit: Yes Status: Acute Code(s): K65.9 - PERITONITIS, UNSPECIFIED SNOMED Code(s): 23699682 Plan: 1patient presented hospital with sepsis in this patient did have fever tachycardia source is acute ruptured appendicitis and peritonitis and will need to cover for enteric gram-negative to be the likely pathogen less likely gram- positive kike 2-penicillin allergy that will limit the number of antibiotics safe to use 3-patient repeat CT abdominal pelvis did shows diverticulitis with multiple foci of air and contained leak,patient is status post sigmoid colectomy descending colostomy and drainage of abdominal abscess cultures currently growing VRE, Hamida albicans and none albicans Hamida 4-patient is afebrile however the patient noticed a worsening of the white count for the patient have repeat CT concerning for fluid collection questionable abscess CT-guided aspiration has been ordered patient was initially reluctant however after multiple questions and also he did agree to go for the procedure fluid should be sent for the culture continue with the cefepime Flagyl Eraxis and daptomycin adjust antibiotic further on the basis of repeat culture Dictation was produced using [email or web address] dictation software. please excuse any grammatical, word or spelling errors. Time with Patient: Greater than 30
--- NOTE | 2024-02-12 16:32 | CT ---
EXAMINATION TYPE: CT guided abscess drainage, CT guided abscess drainage additional site DATE OF EXAM: 02/12/2024 3:48 PM CLINICAL INDICATION:Male, 53 years old with history of abscess drainage; Abdominal abscess drainage t ube insertion, [facility] COMPARISON: 02/11/2024 TECHNIQUE: CT-guided abscess drainage with pigtail catheter placement. CT DLP: 6094 mGycm, Automated exposure control for dose reduction was used. Contrast used: mL of , none Oral contrast used: none ATTENDING: Toribio Garcia D.O. PROCEDURE: Informed consent was obtained. DLP administered was [address] localizer images were taken which showed safest allowable access to the right lateral flui d collection. The patient was prepped, draped in the usual sterile fashion, and locally anesthetized . A 8.5 arabic pig tail catheter was placed via trocar technique. Next attention was taken to the fluid collection in the left abdomen just above the urinary bladder w here another 8.5 arabic pig tail catheter was placed over guidewire technique. Approximately 20 cc right and 5 cc left of serosanguineous was drained and sent to the lab for analys is.. There was no blood loss and post-procedure hemostasis was achieved. The patient tolerated the procedure well without complication. Patient was transferred to the general medical floor in stable condition. IMPRESSION: CT guided placement of a percutaneous pigtail drainage catheter in the right lateral and midline abd ominal wall
[2024-02-12 16:58] LABS: Glucose,Whole Blood 97 mg/dL (70-110)
[2024-02-12] MEDS: ALPRAZolam 1 MG TAB PO PRN (19:40)
[2024-02-12 19:43] LABS: Glucose,Whole Blood 120 mg/dL (70-110)
--- NOTE | 2024-02-12 21:24 | P.PN ---
Subjective Progress Note Date: 02/12/24 53-year-old gentleman past medical history significant for chronic back pain, history of hypertension, history of diabetes mellitus presented to the emergency department with complaints of acute onset of abdominal pain on top of chronic back pain. Patient states symptom onset was 24 hours prior to presentation. Patient said he has a progressive decrease in appetite and had vomited a few times before coming in. Patient said he had 4 small stools however abdominal pain persisted. Patient was sent as a transfer from an outside hospital due to concern for diverticulitis with perforation. General surgery team was contacted, patient was made n.p.o. consultation obtained from general surgery and infectious disease 02/02/2024 Patient is seen and evaluated in room at bedside; no specific complaints reported Vital signs are reviewed and temperature 98.4, pulse 82, respiration 18 and blood pressure 165/78 with O2 saturation 96% Labs revealed WBC of 22.7, improved from 23.7 yesterday, hemoglobin 11.4, platelet count of 238, sodium 138, potassium 4.1, BUNs/creatinine 18/0.76 and blood glucose of 113 -patient presented hospital with sepsis in this patient did have fever tachycardia source is acute ruptured appendicitis and peritonitis and will need to cover for enteric gram-negative to be the likely pathogen less likely gram- positive kike -penicillin allergy that will limit the number of antibiotics safe to use -patient repeat CT abdominal pelvis did shows diverticulitis with multiple foci of air and contained leak -patient white count slightly down today will monitor closely; continue with cefepime and Flagyl we will repeat CBC with a.m. lab 02/03/2024 Patient is seen and evaluated resting comfortably in bed; continues to report uncontrolled pain; reports his Dilaudid has been changed; ostomy not producing at this time Vital signs are reviewed and remained stable Lab review shows improved white blood count 16.3 hemoglobin of 9.6 and platelet count of 268, sodium 136, potassium 3.8, BUNs/creatinine of 12/0.5, phosphorus is low at 1.9 magnesium stable at 1.8 -we will supplement electrolytes and continue to monitor e will supplement electrolytes and continue to monitor --Surgery recommending to advance diet as tolerated 02/04/2024 Patient awake alert He has some abdominal pain tenderness, expected postoperatively, wound closed with wound VAC in place, left lower colostomy bag with small liquid brown stool. No vomiting, poor appetite He is on Dilaudid drip 0.2 and normal saline 50 mL/h 02/05/2024 Patient awake alert He is in distress due to abdominal pain, wound VAC in place He is still on TPN Eraxis added to IV Flagyl and cefepime. Midline is requested Plan for ECF on 02/06/2024 Patient abdominal pain is controlled today. He can tolerate some liquid diet with no vomiting He emptied his colostomy bag yesterday. This morning it has no or minimal discharge He remains on TPN Plan for midline Patient will benefit from ECF upon discharge. Currently on broad-spectrum antibiotic with cefepime, IV Flagyl, Eraxis and daptomycin, ID team on the case 02/07/2024 Patient continued to improve slowly and gradually He tolerates oral diet, still getting TPN Abdominal pain is better 3/10 This morning he emptied his colostomy bag No chest pain or dyspnea. He remains on daptomycin, cefepime Flagyl and antifungal switched to an indulfaungin 02/08/2024 Patient abdominal pain controlled Patient is getting TPN, with plan to taper it off No new complaints Patient can be transferred out of the select unit 02/09/2024 Patient also with significant abdominal pain, Is complaining from more severe back pain today requiring extra dose of Dilaudid Patient is stable 02/10/2024 Patient complains much of his back pain asking for better pain control stating that he is taking IV Dilaudid and is not more satisfied. Patient on IV Dilaudid 1 mg every 6 hours we lowered to 0.5 mg and increase frequency of oxycodone from every 6 hours up to every 4 hours. Patient remains on Eraxis, daptomycin and IV Flagyl and cefepime 02/11/2024 Patient is seen and evaluated in follow-up today with general surgery and infectious disease following. Patient is maintained on antibiotics and does have a PICC line. Surgical digna of the abdomen including sites appear well- approximated although patient continues to have some abdominal distention. Patient is having bowel movements although continued abdominal pain. Plan is for repeat CT abdomen today. Will await report and appreciate input and recommendations from surgery. Case management/social work following as patient will be needing rehab on discharge for continued strength and mobility as patient has had significant clinical decline and extreme weakness. Patient has been encouraged to use incentive spirometer at least 10 times every hour while awake. at the bedside questions and concerns that were answered. 02/12/2024 Patient is seen in follow-up today underwent CT abdomen yesterday showing multiple abscesses and progression and IR has been consulted for drainage tube placement. Patient is continued on antibiotics with infectious disease following. White count mildly improved from yesterday and we will follow-up on cultures from the drainage. Per nursing staff patient is requesting pain medication [id number] and will adjust medications accordingly. Patient has been instructed to increase activity as tolerated and recommend physical therapy daily. Patient will need ECF on discharge. Review of systems: Constitutional: No reports of fatigue, fever, or chills Cardiovascular: No reports of chest pain or palpitations Respiratory: No reports of shortness of breath or cough GI: reports of intermittent nausea, no vomiting, reports having bowel movements in the ostomy, liquid, reports gas, reports continued abdominal pain and distention : No reports of dysuria or retention Neurovascular: reports of generalized weakness and continued severe chronic back pain Physical exam: GENERAL: The patient is alert and oriented x3, obese. Well developed, well nourished. HEENT: Pupils are round and equally reacting to light. EOMI. No scleral icterus. No conjunctival pallor. Normocephalic, atraumatic. No pharyngeal erythema. No thyromegaly. CARDIOVASCULAR: S1 and S2 muffled PULMONARY: Diminished breath sounds bilaterally otherwise chest is clear to auscultation, no wheezing , no crackles. ABDOMEN: Soft, tender on palpation, somewhat distended, normoactive bowel so unds. No palpable organomegaly. Left lower quadrant colostomy in place, vertical wound with multiple digna noted appears well-approximated MUSCULOSKELETAL: No joint swelling or deformity. EXTREMITIES: No cyanosis, clubbing, or pedal edema. Generalized edema noted of lower extremities NEUROLOGICAL: Gross neurological examination did not reveal any focal deficits. Diffusely weak SKIN: No rashes. no petechiae. Pale Assessment: Acute diverticulitis with perforation and localized abscess s/p surgical intervention exploratory laporotomy, sigmoid resection and descending colostomy and drainage of intra-abdominal abscess on 01/30 with progression noted on repeat CT imaging on 02/11/2024 for new abscess formation Sepsis secondary to intra-abdominal infection Acute kidney injury prerenal due to hypotension and dehydration. 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 Anxiety maintained on xanax scheduled which has been resumed and patients mood has improved. Obesity with a BMI of 37.8 GI prophylaxis DVT prophylaxis Full code Plan: Continue with antibiotics IV cefepime and Flagyl and infectious disease following. Patient does have a PICC line and will likely require IV antibiotics outpatient Continue Wound VAC and local wound care per general surgery and infectious disease General surgery following and patient continues to have some abdominal discomfort and distention with repeat CT abdomen showing multiple abscesses and fluid collection. IR has been consulted to place drainage tubes today. currently NPO Recommend PT/OT therapy daily. Case management following as patient will need ECF on discharge Recommend repeat labs in the a.m. and replace electrolytes per protocol Encouraged oral intake with diet recommendations per surgery Continue incentive spirometer use at least 10 times every hour while awake Per nursing staff, patient is requesting pain medications around the clock. Will adjust medications accordingly, recommend avoiding IV narcotics. Due to multiple complex medical issues, prognosis is guarded The impression and plan of care has been dictated by An Liu, Nurse Practitioner as directed. Dr. Denny MD I have performed a history and examination and MDM of this patient, discussed the same with the dictator, and agree with the dictator's assessment and plan as written ,documented as a scribe. Based on total visit time, I have performed more than 50% of the visit. Overall Objective - Vital Signs Vital signs: Vital Signs Temp 98.4 F 02/12/24 08:00 Pulse 74 02/12/24 08:00 Resp 16 02/12/24 08:00 BP 135/90 02/12/24 08:00 Pulse Ox 92 L 02/12/24 08:00 FiO2 Intake & Output 02/11/24 02/12/24 02/12/24 18:59 06:59 18:59 Intake Total 110 Output Total 650 3500 300 Balance -540 -3500 -300 Weight 123 kg Intake: Oral 110 Output: Urine 450 3500 300 Stool 200 Other: Voiding Method Urinal Urinal - Labs CBC & Chem 7: 02/12/24 09:00 02/12/24 09:00 Labs: Abnormal Lab Results - Last 24 Hours (Table) 02/11/24 02/11/24 02/11/24 Range/Units 09:35 09:35 16:22 WBC 19.1 H (3.8-10.6) k/uL RBC 2.94 L (4.30-5.90) m/uL Hgb 8.9 L (13.0-17.5) gm/dL Hct 28.6 L (39.0-53.0) % MCHC 30.9 L (31.0-37.0) g/dL Plt Count 466 H (150-450) k/uL Neutrophils # 15.9 H (1.3-7.7) k/uL Monocytes # 1.7 H (0-1.0) k/uL Sodium 133 L (137-145) mmol/L BUN 7 L (9-20) mg/dL Creatinine 0.52 L (0.66-1.25) mg/dL POC Glucose (mg/dL) 126 H (70-110) mg/dL Calcium 7.8 L (8.4-10.2) mg/dL
[2024-02-13 05:49] LABS: Glucose,Whole Blood 91 mg/dL (70-110)
[2024-02-13 11:05] LABS: Basophils # (A) 0.1 k/uL (0-0.2); Basophils % (A) 0 %; Eosinophils # (A) 0.2 k/uL (0-0.7); Eosinophils % (A) 2 %; HCT 28.2 % (39.0-53.0); HGB 8.6 gm/dL (13.0-17.5); Hypochromasia Slight; Lymphocytes # (A) 1.2 k/uL (1.0-4.8); Lymphocytes % (A) 8 %; MCH 29.1 pg (25.0-35.0); MCHC 30.7 g/dL (31.0-37.0); MCV 94.8 fL (80.0-100.0); Mean Platelet Volume 9.1; Monocytes # (A) 1.2 k/uL (0-1.0); Monocytes % (A) 8 %; Neutrophils # (A) 11.8 k/uL (1.3-7.7); Neutrophils % (A) 80 %; Platelet Count 512 k/uL (150-450); RBC 2.97 m/uL (4.30-5.90); RDW 14.1 % (11.5-15.5); WBC 14.8 k/uL (3.8-10.6)
[2024-02-13 11:18] LABS: African American GFR (CKD) >90 (>60 ml/min/1.73 sqM); Anion Gap 3 mmol/L; Blood Urea Nitrogen 10 mg/dL (9-20); Calcium 8.1 mg/dL (8.4-10.2); Carbon Dioxide 30 mmol/L (22-30); Chloride 102 mmol/L (98-107); Glucose 78 mg/dL (74-99); Magnesium 1.6 mg/dL (1.6-2.3); Non-African American GFR(CKD) >90 (>60 ml/min/1.73 sqM); Potassium 4.6 mmol/L (3.5-5.1); Sodium 135 mmol/L (137-145)
[2024-02-13 11:23] LABS: Glucose,Whole Blood 89 mg/dL (70-110)
[2024-02-13] MEDS: HYDROmorphone 1 MG/ML 1 ML SYRINGE IVP PRN (14:00)
[2024-02-13] MEDS: ALPRAZolam 1 MG TAB PO SCH (14:18)
[2024-02-13 16:31] LABS: Glucose,Whole Blood 119 mg/dL (70-110)
[2024-02-13] MEDS ORDERED: Magnesium Replacement Protocol 1 EACH MISC MISCELLANE PRN (19:03)
[2024-02-13 20:04] LABS: Glucose,Whole Blood 134 mg/dL (70-110)
[2024-02-13] MEDS: MAGNESIUM SULFATE-D5W PMX 1 GM in DEXTROSE/WATER 1 100ML.BAG IVPB ONE (20:16)
--- NOTE | 2024-02-13 21:29 | P.PN ---
Subjective Progress Note Date: 02/13/24 CHIEF COMPLAINT: Diverticulitis HISTORY OF PRESENT ILLNESS: The patient is a 53-year-old male status post Huntley's procedure for perforated sigmoid diverticulitis with peritonitis, 01/31/2024. He denies any increased abdominal pain. White blood cell count had elevated over 19,000. CT scan was obtained. CT scan independently reviewed demonstrated large fluid collections along the right abdominal wall including pelvis. Immediately interventional radiology drained was ordered and placed. Patient denies any increased abdominal pain. His main frustration includes pain management and desire to go home. Patient is on multiple antibiotics for complicated infection including vancomycin-resistant Enterococcus. Per discussion with nurse and care team, patient is demanding scheduled pain medicat ions and narcotics. Patient does report that he takes narcotics routinely at home for his chronic back pain including for his chronic headaches. ROS: No reports of nausea and vomiting. No fevers or chills. No new chest pain. No productive sputum PHYSICAL EXAM: VITAL SIGNS: Reviewed CONSTITUTIONAL: Well developed and in no acute distress. EYES: Conjuctivae without sclera icterus. Extraocular movements grossly intact. HEAD, EARS, NOSE, THROAT: Moist buccal mucosa. Head is atraumatic, n ormocephalic. Hears conversational speech. No nasal drainage. RESPIRATORY: Non-labored respirations and equal bilateral excursions. CARDIOVASCULAR: Palpable 2+ radial pulses. ABDOMEN: Right interventional radiology drained with abscess including seroma. Left drain with seroma. Ostomy pink patent. MUSCULOSKELETAL: No gross deformity of the lower extremities noted. No clubbing. No cyanosis. SKIN: Good skin turgor. Well perfused. NEUROLOGIC: Cranial nerves II through XII grossly intact. No focal or lateralizing signs. PSYCH: Appropriate affect. Alert and oriented to person, place and time. CLINICAL LABS: Reviewed. WBC down from 19.1-14.8 with leukocytosis. ASSESSMENT: 1. Perforated sigmoid diverticulitis with peritonitis 2. Acute renal failure, resolved 3. Huntley's procedure with descending colostomy 4. Sepsis present on admission 5. Compression fracture lumbar spine 6. Chronic pain syndrome due to chronic back pain 7. Peritoneal abscess due to diverticular disease PLAN: 1. Extended discussion with patient for pain management was reviewed. Cycle Xanax including Dilaudid adjusted. 2. Discussion with care management regarding antibiotic accessibility for home reviewed. I personally attempted to contact patient's but unable to be reached. 3. Coordination of care including transfer to extended care facility pending antibiotic management, availability for home health resources upon transfer from facility to home 4. Stable for discharge once medically stable. Objective - Vital Signs Vital signs: Vital Signs Temp 98.0 F 02/13/24 20:00 Pulse 82 02/13/24 20:00 Resp 16 02/13/24 20:00 BP 112/63 02/13/24 20:00 Pulse Ox 94 L 02/13/24 20:00 FiO2 Intake & Output 02/13/24 02/13/24 02/14/24 06:59 18:59 06:59 Intake Total 240 898 Output Total 1750 1075 Balance -1510 -177 Intake: Intake, IV Titration 300 Amount Anidulafungin 100 mg In 100 Sodium Chloride 0.9% 100 ml @ 84 mls/hr IVPB DAILY @1600 [facility] Rx#:[id number] Cefepime 2 gm In Sodium 100 Chloride 0.9% 100 ml @ 25 mls/hr IVPB Q8HR [facility] Rx# :[id number] DAPTOmycin 600 mg In 100 Sodium Chloride 0.9% 50 ml @ 100 mls/hr IVPB Q24H [facility] Rx#:[id number] Oral 240 598 Output: Drainage 150 Medial Abdomen 50 Right Abdomen 100 Urine 1600 1075 Other: Voiding Method Urinal Urinal Urinal - Labs CBC & Chem 7: 02/13/24 09:15 02/13/24 09:15 Labs: Abnormal Lab Results - Last 24 Hours (Table) 02/13/24 02/13/24 02/13/24 Range/Units 09:15 09:15 16:30 WBC 14.8 H (3.8-10.6) k/uL RBC 2.97 L (4.30-5.90) m/uL Hgb 8.6 L (13.0-17.5) gm/dL Hct 28.2 L (39.0-53.0) % MCHC 30.7 L (31.0-37.0) g/dL Plt Count 512 H (150-450) k/uL Neutrophils # 11.8 H (1.3-7.7) k/uL Monocytes # 1.2 H (0-1.0) k/uL Sodium 135 L (137-145) mmol/L Creatinine 0.46 L (0.66-1.25) mg/dL POC Glucose (mg/dL) 119 H (70-110) mg/dL Calcium 8.1 L (8.4-10.2) mg/dL 02/13/24 Range/Units 20:02 WBC (3.8-10.6) k/uL RBC (4.30-5.90) m/uL Hgb (13.0-17.5) gm/dL Hct (39.0-53.0) % MCHC (31.0-37.0) g/dL Plt Count (150-450) k/uL Neutrophils # (1.3-7.7) k/uL Monocytes # (0-1.0) k/uL Sodium (137-145) mmol/L Creatinine (0.66-1.25) mg/dL POC Glucose (mg/dL) 134 H (70-110) mg/dL Calcium (8.4-10.2) mg/dL Microbiology - Last 24 Hours (Table) 02/12/24 14:30 Gram Stain - Preliminary Aspirate 02/12/24 14:30 Gram Stain - Preliminary Aspirate
--- NOTE | 2024-02-13 22:35 | P.PN ---
Subjective Progress Note Date: 02/13/24 Principal diagnosis: Reason for follow-up is perforated diverticulitis with sepsis on admission Patient is a 53-year-old male with past medical history significant for diabetes mellitus hypertension anxiety bipolar depression and brain surgery patient presented to hospital with abdominal pain and this patient has been diagnosed with the ruptured diverticulitis and sepsis for the patient was transferred to [facility]. Patient is status post Exploratory laparotomy with sigmoid resection for perforated mid sigmoid colon, Descending colostomy and drainage of 1600 open abdominal abscess procedure completed on 01/31/2024. On today's evaluation that is 02/13/2024, Patient is afebrile patient is currently on room air and denies having any shortness of breath, the patient denies any chest pain or cough, the patient denies any nausea vomiting abdominal pain is currently controlled patient complaining of more pain to the lower back area and complaining about the pain medication being cut back patient white count is down to 14.8, creatinine 0.46 cultures from yesterday are currently pending Objective - Vital Signs Vital signs: Vital Signs Temp 98.8 F 02/13/24 11:58 Pulse 76 02/13/24 11:58 Resp 16 02/13/24 11:58 BP 154/91 02/13/24 11:58 Pulse Ox 94 L 02/13/24 11:58 FiO2 Intake & Output 02/12/24 02/13/24 02/13/24 18:59 06:59 18:59 Intake Total 550 240 Output Total 2200 1750 450 Balance -1650 -1510 -450 Intake: Intake, IV Titration 550 Amount Anidulafungin 100 mg In 100 Sodium Chloride 0.9% 100 ml @ 84 mls/hr IVPB DAILY @1600 [facility] Rx#:[id number] Cefepime 2 gm In Sodium 200 Chloride 0.9% 100 ml @ 25 mls/hr IVPB Q8HR [facility] Rx# :[id number] DAPTOmycin 600 mg In 50 Sodium Chloride 0.9% 50 ml @ 100 mls/hr IVPB Q24H [facility] Rx#:[id number] Magnesium Sulfate-D5w Pmx 200 1 gm In Dextrose/Water 1 100ml.bag @ 100 mls/hr IVPB Q1H [facility] Rx#: [id number] Oral 240 Output: Drainage 1100 150 Medial Abdomen 250 50 Right Abdomen 850 100 Urine 1000 1600 450 Stool 100 Other: Voiding Method Urinal Urinal Urinal - Exam GENERAL DESCRIPTION: Middle-age male lying in bed in no distress RESPIRATORY SYSTEM: Unlabored breathing , decreased breath sounds at bases HEART: S1 S2 regular rate and rhythm , ABDOMEN: Soft , mild tenderness EXTREMITIES: No edema feet - Labs CBC & Chem 7: 02/13/24 09:15 02/13/24 09:15 Labs: Abnormal Lab Results - Last 24 Hours (Table) 02/12/24 02/13/24 02/13/24 Range/Units 19:41 09:15 09:15 WBC 14.8 H (3.8-10.6) k/uL RBC 2.97 L (4.30-5.90) m/uL Hgb 8.6 L (13.0-17.5) gm/dL Hct 28.2 L (39.0-53.0) % MCHC 30.7 L (31.0-37.0) g/dL Plt Count 512 H (150-450) k/uL Neutrophils # 11.8 H (1.3-7.7) k/uL Monocytes # 1.2 H (0-1.0) k/uL Sodium 135 L (137-145) mmol/L Creatinine 0.46 L (0.66-1.25) mg/dL POC Glucose (mg/dL) 120 H (70-110) mg/dL Calcium 8.1 L (8.4-10.2) mg/dL Microbiology - Last 24 Hours (Table) 02/12/24 14:30 Gram Stain - Preliminary Aspirate 02/12/24 14:30 Gram Stain - Preliminary Aspirate Assessment and Plan (1) Penicillin allergy Current Visit: Yes Status: Acute Code(s): Z88.0 - ALLERGY STATUS TO PENICILLIN SNOMED Code(s): 69858269 (2) Perforation of sigmoid colon due to diverticulitis Current Visit: Yes Status: Acute Code(s): K57.20 - DVTRCLI OF LG INT W PERFORATION AND ABSCESS W/O BLEEDING SNOMED Code(s): 9584447476625570 (3) Peritonitis Current Visit: Yes Status: Acute Code(s): K65.9 - PERITONITIS, UNSPECIFIED SNOMED Code(s): 09107416 Plan: 1patient presented hospital with sepsis in this patient did have fever tachycardia source is acute ruptured appendicitis and peritonitis and will need to cover for enteric gram-negative to be the likely pathogen less likely gram- positive kike 2-penicillin allergy that will limit the number of antibiotics safe to use 3-patient repeat CT abdominal pelvis did shows diverticulitis with multiple foci of air and contained leak,patient is status post sigmoid colectomy descending colostomy and drainage of abdominal abscess cultures currently growing VRE, Hamida albicans and none albicans Hamida 4-patient is afebrile however the patient noticed a worsening of the white count for the patient have repeat CT concerning for fluid collection questionable abscess in this patient who is status post CT-guided aspiration of the area with repeat cultures currently pending for now continue with the cefepime Flagyl Erax is and daptomycin adjust antibiotic further on the basis of repeat culture, however on the basis of current cultures patient will need daptomycin and Eraxis along with oral Ceftin and Flagyl x 10 days on discharge as surgical [employer] has indicated they would like to discharge the patient tomorrow Dictation was produced using [employer] dictation software. please excuse any grammatical, word or spelling errors.
--- NOTE | 2024-02-14 04:51 | P.PN ---
Subjective Progress Note Date: 02/13/24 53-year-old gentleman past medical history significant for chronic back pain, history of hypertension, history of diabetes mellitus presented to the emergency department with complaints of acute onset of abdominal pain on top of chronic back pain. Patient states symptom onset was 24 hours prior to presentation. Patient said he has a progressive decrease in appetite and had vomited a few times before coming in. Patient said he had 4 small stools however abdominal pain persisted. Patient was sent as a transfer from an outside hospital due to concern for diverticulitis with perforation. General surgery team was contacted, patient was made n.p.o. consultation obtained from general surgery and infectious disease 02/02/2024 Patient is seen and evaluated in room at bedside; no specific complaints reported Vital signs are reviewed and temperature 98.4, pulse 82, respiration 18 and blood pressure 165/78 with O2 saturation 96% Labs revealed WBC of 22.7, improved from 23.7 yesterday, hemoglobin 11.4, platelet count of 238, sodium 138, potassium 4.1, BUNs/creatinine 18/0.76 and blood glucose of 113 -patient presented hospital with sepsis in this patient did have fever tachycardia source is acute ruptured appendicitis and peritonitis and will need to cover for enteric gram-negative to be the likely pathogen less likely gram- positive kike -penicillin allergy that will limit the number of antibiotics safe to use -patient repeat CT abdominal pelvis did shows diverticulitis with multiple foci of air and contained leak -patient white count slightly down today will monitor closely; continue with cefepime and Flagyl we will repeat CBC with a.m. lab 02/03/2024 Patient is seen and evaluated resting comfortably in bed; continues to report uncontrolled pain; reports his Dilaudid has been changed; ostomy not producing at this time Vital signs are reviewed and remained stable Lab review shows improved white blood count 16.3 hemoglobin of 9.6 and platelet count of 268, sodium 136, potassium 3.8, BUNs/creatinine of 12/0.5, phosphorus is low at 1.9 magnesium stable at 1.8 -we will supplement electrolytes and continue to monitor e will supplement electrolytes and continue to monitor --Surgery recommending to advance diet as tolerated 02/04/2024 Patient awake alert He has some abdominal pain tenderness, expected postoperatively, wound closed with wound VAC in place, left lower colostomy bag with small liquid brown stool. No vomiting, poor appetite He is on Dilaudid drip 0.2 and normal saline 50 mL/h 02/05/2024 Patient awake alert He is in distress due to abdominal pain, wound VAC in place He is still on TPN Eraxis added to IV Flagyl and cefepime. Midline is requested Plan for ECF on 02/06/2024 Patient abdominal pain is controlled today. He can tolerate some liquid diet with no vomiting He emptied his colostomy bag yesterday. This morning it has no or minimal discharge He remains on TPN Plan for midline Patient will benefit from ECF upon discharge. Currently on broad-spectrum antibiotic with cefepime, IV Flagyl, Eraxis and daptomycin, ID team on the case 02/07/2024 Patient continued to improve slowly and gradually He tolerates oral diet, still getting TPN Abdominal pain is better 3/10 This morning he emptied his colostomy bag No chest pain or dyspnea. He remains on daptomycin, cefepime Flagyl and antifungal switched to an indulfaungin 02/08/2024 Patient abdominal pain controlled Patient is getting TPN, with plan to taper it off No new complaints Patient can be transferred out of the select unit 02/09/2024 Patient also with significant abdominal pain, Is complaining from more severe back pain today requiring extra dose of Dilaudid Patient is stable 02/10/2024 Patient complains much of his back pain asking for better pain control stating that he is taking IV Dilaudid and is not more satisfied. Patient on IV Dilaudid 1 mg every 6 hours we lowered to 0.5 mg and increase frequency of oxycodone from every 6 hours up to every 4 hours. Patient remains on Eraxis, daptomycin and IV Flagyl and cefepime 02/11/2024 Patient is seen and evaluated in follow-up today with general surgery and infectious disease following. Patient is maintained on antibiotics and does have a PICC line. Surgical digna of the abdomen including sites appear well- approximated although patient continues to have some abdominal distention. Patient is having bowel movements although continued abdominal pain. Plan is for repeat CT abdomen today. Will await report and appreciate input and recommendations from surgery. Case management/social work following as patient will be needing rehab on discharge for continued strength and mobility as patient has had significant clinical decline and extreme weakness. Patient has been encouraged to use incentive spirometer at least 10 times every hour while awake. at the bedside questions and concerns that were answered. 02/12/2024 Patient is seen in follow-up today underwent CT abdomen yesterday showing multiple abscesses and progression and IR has been consulted for drainage tube placement. Patient is continued on antibiotics with infectious disease following. White count mildly improved from yesterday and we will follow-up on cultures from the drainage. Per nursing staff patient is requesting pain medication [id number] and will adjust medications accordingly. Patient has been instructed to increase activity as tolerated and recommend physical therapy daily. Patient will need ECF on discharge. 02/13/2024 Patient is seen in follow-up today with multiple medical consultations foll owing. General surgery following and interventional radiology had evaluated the patient status post drainage tubes as patient was noted to have further abscesses on repeat CT imaging. Patient continues on antibiotics with infectious disease following and awaiting finalized cultures. Plan is for R egency on discharge for continued strength and mobility as patient reports is unable to get up and walk and needs assistance. Patient with multiple antibiotics and wound care would make it extremely unsafe and difficult to manage and high risk for readmission if went home. Patient is adamant he is going home on discharge although family feels he needs rehab. Patient is extremely agitated today regarding his pain medication regimen as he reports he has significant 10/10 pain with a history of chronic pain and his home medications are not working. Patient reports his pain is in his back and his constant headaches that he reports has daily due to his previous past medical history of a brain hemorrhage. Per surgery Dr. Christie, patient is to continue on current regimen as she has ordered. Awaiting finalized cultures to determine appropriate discharge antibiotics. Patient does have a PICC line. Review of systems: Constitutional: No reports of fatigue, fever, or chills Cardiovascular: No reports of chest pain or palpitations Respiratory: No reports of shortness of breath or cough GI: reports of intermittent nausea, no vomiting, reports having bowel movements in the ostomy, liquid, reports gas, reports current abdominal pain is controlled : No reports of dysuria or retention Neurovascular: reports of generalized weakness and continued severe chronic back pain that is being unmanaged Physical exam: GENERAL: The patient is alert and oriented x3, obese. Well developed, well nourished. Anxious and agitated today HEENT: Pupils are round and equally reacting to light. EOMI. No scleral icterus. No conjunctival pallor. Normocephalic, atraumatic. No pharyngeal erythema. No thyromegaly. CARDIOVASCULAR: S1 and S2 muffled PULMONARY: Diminished breath sounds bilaterally otherwise chest is clear to auscultation, no wheezing , no crackles. ABDOMEN: Soft, tender on palpation, somewhat distended, normoactive bowel sounds. No palpable organomegaly. Left lower quadrant colostomy in place, vertical wound with multiple digna noted appears well-approximated, surgical dressing is dry and intact MUSCULOSKELETAL: No joint swelling or deformity. EXTREMITIES: No cyanosis, clubbing, or pedal edema. Generalized edema noted of lower extremities NEUROLOGICAL: Gross neurological examination did not reveal any focal deficits. Diffusely weak SKIN: No rashes. no petechiae. Pale Assessment: Acute diverticulitis with perforation and localized abscess s/p surgical inter vention exploratory laporotomy, sigmoid resection and descending colostomy and drainage of intra-abdominal abscess on 01/30 with progression noted on repeat CT imaging on 02/11/2024 for new abscess formation Status post drainage tube placement with interventional radiology Sepsis secondary to intra-abdominal infection Acute kidney injury prerenal due to hypotension and dehydration. 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 Anxiety maintained on xanax scheduled Obesity with a BMI of 37.8 GI prophylaxis DVT prophylaxis Full code Plan: Continue with antibiotics IV cefepime and Flagyl and infectious disease following. Patient does have a PICC line and will require IV antibiotics outpatient Continue Wound VAC and local wound care per general surgery and infectious disease General surgery following and patient continues to have some abdominal discom fort and distention with repeat CT abdomen showing multiple abscesses and fluid collection. IR has placed drainage tubes. Patient is agitated today regarding his pain medication regimen and per surgery patient is to continue with current medication as she has prescribed. Patient reports his home medications are not working. Patient reporting his pain is in his back and has had with no reports of abdominal discomfort at this time. Recommend PT/OT therapy daily. Case management following as patient will need ECF on discharge. Patient is adamant he is going home although was significantly weak and unable to walk. Family would like him to go to rehab with his extensive wound care and continued IV antibiotics with multiple medications and uncontrolled pain. Patient reports of his pain is not managed he will go home. Patient would have to leave AMA as he is not medically clear at this time Recommend repeat labs in the a.m. and replace electrolytes per protocol Encouraged oral intake with diet recommendations per surgery Continue incentive spirometer use at least 10 times every hour while awake Per nursing staff, patient is requesting pain medications around the clock prior to his scheduled time. Continue with medications prescribed as per surgery and will consult pain management Due to multiple complex medical issues, prognosis is guarded The impression and plan of care has been dictated by An Liu, Nurse Practitioner as directed. Dr. Denny MD I have performed a history and examination and MDM of this patient, discussed the same with the dictator, and agree with the dictator's assessment and plan as written ,documented as a scribe. Based on total visit time, I have performed more than 50% of the visit. Overall Objective - Vital Signs Vital signs: Vital Signs Temp 98.3 F 02/13/24 01:42 Pulse 71 02/13/24 08:00 Resp 16 02/13/24 08:00 BP 143/76 02/13/24 08:00 Pulse Ox 92 L 02/13/24 08:00 FiO2 Intake & Output 02/12/24 02/13/24 02/13/24 18:59 06:59 18:59 Intake Total 550 240 Output Total 2200 1750 450 Balance -1650 -1510 -450 Intake: Intake, IV Titration 550 Amount Anidulafungin 100 mg In 100 Sodium Chloride 0.9% 100 ml @ 84 mls/hr IVPB DAILY @1600 [facility] Rx#:[id number] Cefepime 2 gm In Sodium 200 Chloride 0.9% 100 ml @ 25 mls/hr IVPB Q8HR [facility] Rx# :[id number] DAPTOmycin 600 mg In 50 Sodium Chloride 0.9% 50 ml @ 100 mls/hr IVPB Q24H [facility] Rx#:[id number] Magnesium Sulfate-D5w Pmx 200 1 gm In Dextrose/Water 1 100ml.bag @ 100 mls/hr IVPB Q1H [facility] Rx#: [id number] Oral 240 Output: Drainage 1100 150 Medial Abdomen 250 50 Right Abdomen 850 100 Urine 1000 1600 450 Stool 100 Other: Voiding Method Urinal Urinal - Labs CBC & Chem 7: 02/13/24 09:15 02/13/24 09:15 Labs: Abnormal Lab Results - Last 24 Hours (Table) 02/12/24 02/12/24 02/12/24 Range/Units 09:00 09:00 12:58 WBC 15.9 H (3.8-10.6) k/uL RBC 2.93 L (4.30-5.90) m/uL Hgb 8.8 L (13.0-17.5) gm/dL Hct 27.9 L (39.0-53.0) % Plt Count 508 H (150-450) k/uL Neutrophils # 13.0 H (1.3-7.7) k/uL Monocytes # 1.3 H (0-1.0) k/uL PT 12.7 H (10.0-12.5) sec INR 1.2 H (<1.2) Sodium 134 L (137-145) mmol/L BUN 7 L (9-20) mg/dL Creatinine 0.49 L (0.66-1.25) mg/dL POC Glucose (mg/dL) (70-110) mg/dL Calcium 7.9 L (8.4-10.2) mg/dL Magnesium 1.4 L (1.6-2.3) mg/dL Total Protein 5.3 L (6.3-8.2) g/dL Albumin 2.2 L (3.5-5.0) g/dL 02/12/24 Range/Units 19:41 WBC (3.8-10.6) k/uL RBC (4.30-5.90) m/uL Hgb (13.0-17.5) gm/dL Hct (39.0-53.0) % Plt Count (150-450) k/uL Neutrophils # (1.3-7.7) k/uL Monocytes # (0-1.0) k/uL PT (10.0-12.5) sec INR (<1.2) Sodium (137-145) mmol/L BUN (9-20) mg/dL Creatinine (0.66-1.25) mg/dL POC Glucose (mg/dL) 120 H (70-110) mg/dL Calcium (8.4-10.2) mg/dL Magnesium (1.6-2.3) mg/dL Total Protein (6.3-8.2) g/dL Albumin (3.5-5.0) g/dL Microbiology - Last 24 Hours (Table) 02/12/24 14:30 Gram Stain - Preliminary Aspirate 02/12/24 14:30 Gram Stain - Preliminary Aspirate
[2024-02-14 05:52] LABS: Glucose,Whole Blood 142 mg/dL (70-110)
[2024-02-14 06:29] LABS: Basophils # (A) 0.1 k/uL (0-0.2); Basophils % (A) 0 %; Eosinophils # (A) 0.3 k/uL (0-0.7); Eosinophils % (A) 2 %; HCT 30.7 % (39.0-53.0); HGB 9.5 gm/dL (13.0-17.5); Hypochromasia Slight; Lymphocytes # (A) 1.2 k/uL (1.0-4.8); Lymphocytes % (A) 9 %; MCH 29.8 pg (25.0-35.0); MCV 95.9 fL (80.0-100.0); Mean Platelet Volume 8.4; Monocytes % (A) 7 %; Neutrophils # (A) 11.5 k/uL (1.3-7.7); Neutrophils % (A) 81 %; Platelet Count 551 k/uL (150-450); WBC 14.3 k/uL (3.8-10.6)
[2024-02-14 07:24] LABS: African American GFR (CKD) >90 (>60 ml/min/1.73 sqM); Anion Gap 3 mmol/L; Blood Urea Nitrogen 11 mg/dL (9-20); Calcium 8.3 mg/dL (8.4-10.2); Carbon Dioxide 31 mmol/L (22-30); Chloride 101 mmol/L (98-107); Glucose 124 mg/dL (74-99); Magnesium 1.7 mg/dL (1.6-2.3); Non-African American GFR(CKD) >90 (>60 ml/min/1.73 sqM); Potassium 4.3 mmol/L (3.5-5.1); Sodium 135 mmol/L (137-145)
[2024-02-14 12:46] LABS: Glucose,Whole Blood 139 mg/dL (70-110)
--- NOTE | 2024-02-14 12:59 | P.PAINCN ---
History of Present Illness - Reason for Consult Consult date: 02/14/24 - History of Present Illness This is 53 years old male with a history of chronic and severe low back pain, had lumbar laminectomy and fusion surgery done few years ago, with revision later on,, patient had multiple falls at home prior to the admission [facility] and after the admission patient found that he had chronic compression vertebral fracture, patient was at oxycodone 15 mg every 6 hours at home, Lyrica 150 mg twice a day and Robaxin-750 3 times daily, and patient is admitted to [facility] few weeks ago secondary to perforated diverticulum, he had exploratory laparotomy, with diverted colostomy, currently patient on the medication mentioned above and also he is getting Dilaudid 1 mg IV every 3 hours as needed, patient continued to have severe back pain with intensity of 7-8/10, with occasional increase to 10/10, and also patient complaining of some abdominal pain . Past Medical History Past Medical History: CVA/TIA, Diabetes Mellitus, Hypertension, Myocardial Infarction (SD), Osteoarthritis (OA) Additional Past Medical History / Comment(s): CVA x3 with TIA, 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, frequent falls Last Myocardial Infarction Date:: 2018 History of Any Multi-Drug Resistant Organisms: VRE Year Discovered:: 01/31/24 MDRO Source:: Wound-site not specified Past Surgical History: Back Surgery, Bowel Resection, Heart Catheterization With Stent, Joint Replacement Additional Past Surgical History / Comment(s): Brain surgery, T-9 to T-10 autofusion, T-11 to S-1 fusion, L-2 compression fracture, S-1 hardware failure, (R) knee replacement, 01/25/2024 (sepsis) sigmoid diverticulitis/abcess with perforated bowel-ostomy Past Anesthesia/Blood Transfusion Reactions: No Reported Reaction Date of Last Stent Placement:: 2018 Past Psychological History: Anxiety, Bipolar, Depression Smoking Status: Never smoker Past Alcohol Use History: None Reported Past Drug Use History: None Reported Medications and Allergies Home Medications Medication Instructions Recorded Confirmed Type ALPRAZolam [Xanax] 1 mg PO TID PRN 01/25/24 01/25/24 History Acetaminophen [Tylenol Arthritis] 650 mg PO Q8H PRN 01/25/24 01/25/24 History Benazepril HCl 40 mg PO HS 01/25/24 01/25/24 History Cholecalciferol (Vitamin D3) 75 mcg PO HS 01/25/24 01/25/24 History [Vitamin D3 (3000 Iu)] Meclizine HCl [Dramamine] 25 mg PO TID PRN 01/25/24 01/25/24 History Melatonin 5 mg PO HS 01/25/24 01/25/24 History PARoxetine HCL [Paxil] 40 mg PO HS 01/25/24 01/25/24 History Pregabalin [Lyrica] 150 mg PO BID MDD 300mg 01/25/24 01/25/24 History metFORMIN HCL 1,000 mg PO BID 01/25/24 01/25/24 History methocarbamoL [Robaxin-750] 750 mg PO TID PRN 01/25/24 01/25/24 History oxyCODONE HCL [oxyCODONE HCL (IR)] 15 mg PO Q6H PRN MDD 60mg 01/25/24 01/25/24 History Allergies Allergy/AdvReac Type Severity Reaction Status Date / Time Penicillins Allergy Anaphylaxis Verified 01/25/24 18:03 Physical Exam Vitals: Vital Signs Temp Pulse Resp BP Pulse Ox 02/14/24 07:23 97.9 F 67 121/76 94 L 02/14/24 01:04 98.2 F 71 14 134/80 92 L 02/13/24 20:00 98.0 F 82 16 112/63 94 L 02/13/24 17:05 100.5 F H 88 16 125/69 92 L Intake and Output 02/13/24 02/14/24 02/14/24 22:59 06:59 14:59 Intake Total 898 118 Output Total 1125 385 Balance -227 -385 118 Intake: Intake, IV Titration 300 Amount Anidulafungin 100 mg In 100 Sodium Chloride 0.9% 100 ml @ 84 mls/hr IVPB DAILY @1600 [facility] Rx#:[id number] Cefepime 2 gm In Sodium 100 Chloride 0.9% 100 ml @ 25 mls/hr IVPB Q8HR [facility] Rx# :[id number] DAPTOmycin 600 mg In 100 Sodium Chloride 0.9% 50 ml @ 100 mls/hr IVPB Q24H [facility] Rx#:[id number] Oral 598 118 Output: Drainage 85 Medial Abdomen 35 Right Abdomen 50 Urine 1125 Stool 300 Other: Voiding Method Urinal Urinal PHYSICAL EXAM: VITAL SIGNS: Reviewed CONSTITUTIONAL: Well developed and in no acute distress. EYES: Conjuctivae without sclera icterus. Extraocular movements grossly intact. HEAD, EARS, NOSE, THROAT: Moist buccal mucosa. Head is atraumatic, normocephalic. Hears conversational speech. No nasal drainage. RESPIRATORY: Non-labored respirations and equal bilateral excursions. CARDIOVASCULAR: Palpable 2+ radial pulses. ABDOMEN: Right interventional radiology drained with abscess including seroma. Left drain with seroma. Ostomy pink patent. MUSCULOSKELETAL: No gross deformity of the lower extremities noted. No clubbing. No cyanosis. SKIN: Good skin turgor. Well perfused. NEUROLOGIC: Cranial nerves II through XII grossly intact. No focal or lateralizing signs. PSYCH: Appropriate affect. Alert and oriented to person, place and time. ASSESSMENT: 1. Perforated sigmoid diverticulitis with peritonitis 2. Acute renal failure, resolved 3. Huntley's procedure with descending colostomy 4. Sepsis present on admission 5. Compression fracture lumbar spine 6. Chronic pain syndrome due to chronic back pain 7. Peritoneal abscess due to diverticular disease PLAN: 1. Extended discussion with patient for pain management was reviewed. Cycle Xanax including Dilaudid adjusted. 2. Discussion with care management regarding antibiotic accessibility for home reviewed. I personally attempted to contact patient's but unable to be reached. 3. Coordination of care including transfer to extended care facility pending antibiotic management, availability for home health resources upon transfer from facility to home 4. Stable for discharge once medically stable. Physical exam Results CBC & Chem 7: 02/14/24 06:05 02/14/24 06:05 Labs: Abnormal Lab Results - Last 24 Hours (Table) 02/13/24 02/13/24 02/14/24 Range/Units 16:30 20:02 05:50 WBC (3.8-10.6) k/uL RBC (4.30-5.90) m/uL Hgb (13.0-17.5) gm/dL Hct (39.0-53.0) % Plt Count (150-450) k/uL Neutrophils # (1.3-7.7) k/uL Sodium (137-145) mmol/L Carbon Dioxide (22-30) mmol/L Creatinine (0.66-1.25) mg/dL Glucose (74-99) mg/dL POC Glucose (mg/dL) 119 H 134 H 142 H (70-110) mg/dL Calcium (8.4-10.2) mg/dL 02/14/24 02/14/24 Range/Units 06:05 06:05 WBC 14.3 H (3.8-10.6) k/uL RBC 3.20 L (4.30-5.90) m/uL Hgb 9.5 L (13.0-17.5) gm/dL Hct 30.7 L (39.0-53.0) % Plt Count 551 H (150-450) k/uL Neutrophils # 11.5 H (1.3-7.7) k/uL Sodium 135 L (137-145) mmol/L Carbon Dioxide 31 H (22-30) mmol/L Creatinine 0.56 L (0.66-1.25) mg/dL Glucose 124 H (74-99) mg/dL POC Glucose (mg/dL) (70-110) mg/dL Calcium 8.3 L (8.4-10.2) mg/dL Microbiology - Last 24 Hours (Table) 02/12/24 14:30 Gram Stain - Preliminary Aspirate Body Fluid Culture - Preliminary Enterococcus faecium 02/12/24 14:30 Gram Stain - Preliminary Aspirate Body Fluid Culture - Preliminary Enterococcus faecium Assessment and Plan Plan: Assessment and plan=1-failed back surgery syndrome lumbar area. History of T11-S1 fusion with S1 hardware failure. 2-chronic pain syndrome pain syndrome. 3-compression fracture of the lumbar spine 4-perforated sigmoid diverticulitis with tram tonitis and currently patient on IV antibiotics. 5- peritoneal abscess Patient reported that his pain not adequately controlled he continues to have severe back pain, I recommend to start patient on Duragesic patch 25 mcg every 72 hours, recommend continue oxycodone 15 mg every 6 hours as needed, continue Dilaudid 0.5 mg IV every 3 hours as needed, and continue Lyrica 150 mg twice a day and continue Robaxin-750 milligrams 3 times daily, will evaluate patient response to the current changes, will adjust accordingly, patient is not a candidate for any interventional pain management Time with Patient: Less than 30 PQRS Measure Charge Sheet - Pain Location Back Non-Pharmacological Interventions: Darkened Room, Distraction, Position/Reposition Pharmacological Interventions: PRN Medication Anterior Abdomen Non-Pharmacological Interventions: Darkened Room, Position/Reposition, Relaxation Technique Pharmacological Interventions: PRN Medication Pain Comment: see MAR for full pain assessment PQRS Narrative: Blood Pressure [Left Arm] 116/78 Blood Pressure [Right Arm] 121/76 Blood Pressure 113/81 Pain Intensity [Anterior 4 Abdomen] Pain Intensity [Back] 0 Pain Intensity 8 Pain Scale Used [Anterior Numeric (1 - 10) Abdomen] Pain Scale Used [Back] Numeric (1 - 10) Pain Scale Used Numeric (1 - 10) Scale Used Numeric (1 - 10) Home Medications: Ambulatory Orders ALPRAZolam [Xanax] 1 mg PO TID PRN 01/25/24 Acetaminophen [Tylenol Arthritis] 650 mg PO Q8H PRN 01/25/24 Benazepril HCl 40 mg PO HS 01/25/24 Cholecalciferol (Vitamin D3) [Vitamin D3 (3000 Iu)] 75 mcg PO HS 01/25/24 Meclizine HCl [Dramamine] 25 mg PO TID PRN 01/25/24 Melatonin 5 mg PO HS 01/25/24 PARoxetine HCL [Paxil] 40 mg PO HS 01/25/24 Pregabalin [Lyrica] 150 mg PO BID MDD 300mg 01/25/24 metFORMIN HCL 1,000 mg PO BID 01/25/24 methocarbamoL [Robaxin-750] 750 mg PO TID PRN 01/25/24 oxyCODONE HCL [oxyCODONE HCL (IR)] 15 mg PO Q6H PRN MDD 60mg 01/25/24
[2024-02-14 16:36] LABS: Glucose,Whole Blood 172 mg/dL (70-110)
--- NOTE | 2024-02-14 17:11 | P.PN ---
Subjective Progress Note Date: 02/14/24 CHIEF COMPLAINT: Diverticulitis HISTORY OF PRESENT ILLNESS: The patient is a 53-year-old male status post Huntley's procedure for perforated sigmoid diverticulitis with peritonitis, 01/31/2024. He is now status post drainage of intra-abdominal abscess. His family is at bedside including his and son. Patient is transitioning to extended care facility tomorrow. He is tolerating diet. He did have fevers overnight. He is having bowel movements through his ostomy. Pain is well- controlled. ROS: No reports of nausea and vomiting. Temperature max 100.5. No new chest pain. No productive sputum PHYSICAL EXAM: VITAL SIGNS: Reviewed CONSTITUTIONAL: Well developed and in no acute distress. EYES: Conjuctivae without sclera icterus. Extraocular movements grossly intact. HEAD, EARS, NOSE, THROAT: Moist buccal mucosa. Head is atraumatic, normocephalic. Hears conversational speech. No nasal drainage. RESPIRATORY: Non-labored respirations and equal bilateral excursions. CARDIOVASCULAR: Palpable 2+ radial pulses. ABDOMEN: Midline dressing with serous drainage. Serous drainage along bilateral draining tubes. Over 100 cc in 12 hours. MUSCULOSKELETAL: No gross deformity of the lower extremities noted. No clubbing. No cyanosis. SKIN: Good skin turgor. Well perfused. NEUROLOGIC: Cranial nerves II through XII grossly intact. No focal or lateralizing signs. PSYCH: Appropriate affect. Alert and oriented to person, place and time. CLINICAL LABS: Reviewed. WBC down from 19.1-14.8, today 14.3 with leukocytosis. ASSESSMENT: 1. Perforated sigmoid diverticulitis with peritonitis 2. Acute renal failure, resolved 3. Huntley's procedure with descending colostomy 4. Sepsis present on admission 5. Compression fracture lumbar spine 6. Chronic pain syndrome due to chronic back pain 7. Peritoneal abscess due to diverticular disease 8. Vancomycin-resistant Enterococcus PLAN: 1. Extended discussion the family includes agreement of transfer to extended care facility due to chronic ongoing back pain and complicated VRE management 2. At this time, patient is being seen by pain service for maximum pain control due to complicated pain needs 3. Discussion with infectious disease including antibiotic coverage as outpatient reviewed 4. Patient and family made aware that I will be out of town next week however removal of digna in 3 weeks. 5. Wound care management with antibacterial soap and hydrogen peroxide daily reviewed 6. High-protein diet postoperatively for maximum her coverage advised 7. Stable for discharge from a surgical standpoint when medically stable with outpatient follow-up March 11. Objective - Vital Signs Vital signs: Vital Signs Temp 97.9 F 02/14/24 07:23 Pulse 67 02/14/24 07:23 Resp 14 02/14/24 01:04 BP 121/76 02/14/24 07:23 Pulse Ox 94 L 02/14/24 07:23 FiO2 Intake & Output 02/13/24 02/14/24 02/14/24 18:59 06:59 18:59 Intake Total 898 118 Output Total 1075 885 250 Balance -785 -885 -132 Intake: Intake, IV Titration 300 Amount Anidulafungin 100 mg In 100 Sodium Chloride 0.9% 100 ml @ 84 mls/hr IVPB DAILY @1600 [facility] Rx#:[id number] Cefepime 2 gm In Sodium 100 Chloride 0.9% 100 ml @ 25 mls/hr IVPB Q8HR [facility] Rx# :[id number] DAPTOmycin 600 mg In 100 Sodium Chloride 0.9% 50 ml @ 100 mls/hr IVPB Q24H [facility] Rx#:[id number] Oral 598 118 Output: Drainage 85 Medial Abdomen 35 Right Abdomen 50 Urine 1075 500 Stool 300 250 Other: Voiding Method Urinal Urinal Urinal - Labs CBC & Chem 7: 02/14/24 06:05 02/14/24 06:05 Labs: Abnormal Lab Results - Last 24 Hours (Table) 02/13/24 02/13/24 02/14/24 Range/Units 16:30 20:02 05:50 WBC (3.8-10.6) k/uL RBC (4.30-5.90) m/uL Hgb (13.0-17.5) gm/dL Hct (39.0-53.0) % Plt Count (150-450) k/uL Neutrophils # (1.3-7.7) k/uL Sodium (137-145) mmol/L Carbon Dioxide (22-30) mmol/L Creatinine (0.66-1.25) mg/dL Glucose (74-99) mg/dL POC Glucose (mg/dL) 119 H 134 H 142 H (70-110) mg/dL Calcium (8.4-10.2) mg/dL 02/14/24 02/14/24 02/14/24 Range/Units 06:05 06:05 12:42 WBC 14.3 H (3.8-10.6) k/uL RBC 3.20 L (4.30-5.90) m/uL Hgb 9.5 L (13.0-17.5) gm/dL Hct 30.7 L (39.0-53.0) % Plt Count 551 H (150-450) k/uL Neutrophils # 11.5 H (1.3-7.7) k/uL Sodium 135 L (137-145) mmol/L Carbon Dioxide 31 H (22-30) mmol/L Creatinine 0.56 L (0.66-1.25) mg/dL Glucose 124 H (74-99) mg/dL POC Glucose (mg/dL) 139 H (70-110) mg/dL Calcium 8.3 L (8.4-10.2) mg/dL Microbiology - Last 24 Hours (Table) 02/12/24 14:30 Gram Stain - Preliminary Aspirate Body Fluid Culture - Preliminary Enterococcus faecium 02/12/24 14:30 Gram Stain - Preliminary Aspirate Body Fluid Culture - Preliminary Enterococcus faecium
[2024-02-14 20:06] LABS: Glucose,Whole Blood 84 mg/dL (70-110)
--- NOTE | 2024-02-15 03:42 | P.PN ---
Subjective Progress Note Date: 02/14/24 53-year-old gentleman past medical history significant for chronic back pain, history of hypertension, history of diabetes mellitus presented to the emergency department with complaints of acute onset of abdominal pain on top of chronic back pain. Patient states symptom onset was 24 hours prior to presentation. Patient said he has a progressive decrease in appetite and had vomited a few times before coming in. Patient said he had 4 small stools however abdominal pain persisted. Patient was sent as a transfer from an outside hospital due to concern for diverticulitis with perforation. General surgery team was contacted, patient was made n.p.o. consultation obtained from general surgery and infectious disease 02/02/2024 Patient is seen and evaluated in room at bedside; no specific complaints reported Vital signs are reviewed and temperature 98.4, pulse 82, respiration 18 and blood pressure 165/78 with O2 saturation 96% Labs revealed WBC of 22.7, improved from 23.7 yesterday, hemoglobin 11.4, platelet count of 238, sodium 138, potassium 4.1, BUNs/creatinine 18/0.76 and blood glucose of 113 -patient presented hospital with sepsis in this patient did have fever tachycardia source is acute ruptured appendicitis and peritonitis and will need to cover for enteric gram-negative to be the likely pathogen less likely gram- positive kike -penicillin allergy that will limit the number of antibiotics safe to use -patient repeat CT abdominal pelvis did shows diverticulitis with multiple foci of air and contained leak -patient white count slightly down today will monitor closely; continue with cefepime and Flagyl we will repeat CBC with a.m. lab 02/03/2024 Patient is seen and evaluated resting comfortably in bed; continues to report uncontrolled pain; reports his Dilaudid has been changed; ostomy not producing at this time Vital signs are reviewed and remained stable Lab review shows improved white blood count 16.3 hemoglobin of 9.6 and platelet count of 268, sodium 136, potassium 3.8, BUNs/creatinine of 12/0.5, phosphorus is low at 1.9 magnesium stable at 1.8 -we will supplement electrolytes and continue to monitor e will supplement electrolytes and continue to monitor --Surgery recommending to advance diet as tolerated 02/04/2024 Patient awake alert He has some abdominal pain tenderness, expected postoperatively, wound closed with wound VAC in place, left lower colostomy bag with small liquid brown stool. No vomiting, poor appetite He is on Dilaudid drip 0.2 and normal saline 50 mL/h 02/05/2024 Patient awake alert He is in distress due to abdominal pain, wound VAC in place He is still on TPN Eraxis added to IV Flagyl and cefepime. Midline is requested Plan for ECF on 02/06/2024 Patient abdominal pain is controlled today. He can tolerate some liquid diet with no vomiting He emptied his colostomy bag yesterday. This morning it has no or minimal discharge He remains on TPN Plan for midline Patient will benefit from ECF upon discharge. Currently on broad-spectrum antibiotic with cefepime, IV Flagyl, Eraxis and daptomycin, ID team on the case 02/07/2024 Patient continued to improve slowly and gradually He tolerates oral diet, still getting TPN Abdominal pain is better 3/10 This morning he emptied his colostomy bag No chest pain or dyspnea. He remains on daptomycin, cefepime Flagyl and antifungal switched to an indulfaungin 02/08/2024 Patient abdominal pain controlled Patient is getting TPN, with plan to taper it off No new complaints Patient can be transferred out of the select unit 02/09/2024 Patient also with significant abdominal pain, Is complaining from more severe back pain today requiring extra dose of Dilaudid Patient is stable 02/10/2024 Patient complains much of his back pain asking for better pain control stating that he is taking IV Dilaudid and is not more satisfied. Patient on IV Dilaudid 1 mg every 6 hours we lowered to 0.5 mg and increase frequency of oxycodone from every 6 hours up to every 4 hours. Patient remains on Eraxis, daptomycin and IV Flagyl and cefepime 02/11/2024 Patient is seen and evaluated in follow-up today with general surgery and infectious disease following. Patient is maintained on antibiotics and does have a PICC line. Surgical digna of the abdomen including sites appear well- approximated although patient continues to have some abdominal distention. Patient is having bowel movements although continued abdominal pain. Plan is for repeat CT abdomen today. Will await report and appreciate input and recommendations from surgery. Case management/social work following as patient will be needing rehab on discharge for continued strength and mobility as patient has had significant clinical decline and extreme weakness. Patient has been encouraged to use incentive spirometer at least 10 times every hour while awake. at the bedside questions and concerns that were answered. 02/12/2024 Patient is seen in follow-up today underwent CT abdomen yesterday showing multiple abscesses and progression and IR has been consulted for drainage tube placement. Patient is continued on antibiotics with infectious disease following. White count mildly improved from yesterday and we will follow-up on cultures from the drainage. Per nursing staff patient is requesting pain medication [id number] and will adjust medications accordingly. Patient has been instructed to increase activity as tolerated and recommend physical therapy daily. Patient will need ECF on discharge. 02/13/2024 Patient is seen in follow-up today with multiple medical consultations foll owing. General surgery following and interventional radiology had evaluated the patient status post drainage tubes as patient was noted to have further abscesses on repeat CT imaging. Patient continues on antibiotics with infectious disease following and awaiting finalized cultures. Plan is for R egency on discharge for continued strength and mobility as patient reports is unable to get up and walk and needs assistance. Patient with multiple antibiotics and wound care would make it extremely unsafe and difficult to manage and high risk for readmission if went home. Patient is adamant he is going home on discharge although family feels he needs rehab. Patient is extremely agitated today regarding his pain medication regimen as he reports he has significant 10/10 pain with a history of chronic pain and his home medications are not working. Patient reports his pain is in his back and his constant headaches that he reports has daily due to his previous past medical history of a brain hemorrhage. Per surgery Dr. Christie, patient is to continue on current regimen as she has ordered. Awaiting finalized cultures to determine appropriate discharge antibiotics. Patient does have a PICC line. 02/14/2024 Patient being seen this morning with multiple medical consultations following. Patient does have a PICC line and will continue on antibiotic therapy outpatient. Patient will require at least 10 days of antibiotics per ID recommendations. Patient reported pain was uncontrolled and continued on IV Dilaudid and have consulted pain management being started on fentanyl patch. Recommend and discussed with patient and family regarding IV narcotic use limitation. General surgery following and has cleared the patient for discharge and will be monitored overnight as patient did have a low-grade temp last night. White count is trending down and recommend close outpatient follow-up labs. Patient does have a scheduled appointment with general surgery outpatient. Patient to follow-up with orthopedics once medically stable from current clinical condition. Plan is for [facility] and [facility] and currently awaiting insurance authorization. Review of systems: Constitutional: No reports of fatigue, fever, or chills Cardiovascular: No reports of chest pain or palpitations Respiratory: No reports of shortness of breath or cough GI: reports of intermittent nausea, no vomiting, reports having bowel movements in the ostomy, liquid, reports gas, reports current abdominal pain is controlled : No reports of dysuria or retention Neurovascular: reports of generalized weakness and continued severe chronic back pain that is being unmanaged Physical exam: GENERAL: The patient is alert and oriented x3, obese. Well developed, well nourished. HEENT: Pupils are round and equally reacting to light. EOMI. No scleral icterus. No conjunctival pallor. Normocephalic, atraumatic. No pharyngeal erythema. No thyromegaly. CARDIOVASCULAR: S1 and S2 muffled PULMONARY: Diminished breath sounds bilaterally otherwise chest is clear to auscultation, no wheezing , no crackles. ABDOMEN: Soft, tender on palpation, somewhat distended, normoactive bowel sounds. No palpable organomegaly. Left lower quadrant colostomy in place, vertical wound with multiple digna noted appears well-approximated, surgical dressing is dry and intact MUSCULOSKELETAL: No joint swelling or deformity. EXTREMITIES: No cyanosis, clubbing, or pedal edema. Generalized edema noted of lower extremities NEUROLOGICAL: Gross neurological examination did not reveal any focal deficits. Diffusely weak SKIN: No rashes. no petechiae. Pale Assessment: Acute diverticulitis with perforation and localized abscess s/p surgical intervention exploratory laporotomy, sigmoid resection and descending colostomy and drainage of intra-abdominal abscess on 01/30 with progression noted on repeat CT imaging on 02/11/2024 for new abscess formation Status post drainage tube placement with interventional radiology Sepsis secondary to intra-abdominal infection Acute kidney injury prerenal due to hypotension and dehydration. 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 Anxiety maintained on xanax scheduled Obesity with a BMI of 37.8 GI prophylaxis DVT prophylaxis Full code Plan: Continue with antibiotics with infectious disease following. Patient does have a PICC line and will require IV antibiotics outpatient. Patient to be on at least 10 days IV antibiotic therapy on discharge Continue local wound care per general surgery and infectious disease General surgery following and patient continues to have some abdominal discomfort and distention with repeat CT abdomen showing multiple abscesses and fluid collection. IR has placed drainage tubes. Patient has been cleared by surgery for outpatient follow-up Patient continues to report uncontrolled pain and pain management was consulted. Recommend limiting IV narcotic use as per nursing staff patient had been re questing IV Dilaudid [id number]. Patient being started on fentanyl and will continue current regimen Recommend PT/OT therapy daily. Case management following as patient will need ECF on discharge. Currently awaiting on insurance authorization for [facility] Encouraged oral intake with diet recommendations per surgery Continue incentive spirometer use at least 10 times every hour while awake Monitor for any further fevers and await insurance Auth with possible discharge planning in the next 24 hours due to multiple complex medical issues, prognosis is guarded The impression and plan of care has been dictated by An Liu, Nurse Practitioner as directed. Dr. Denny MD I have performed a history and examination and MDM of this patient, discussed the same with the dictator, and agree with the dictator's assessment and plan as written ,documented as a scribe. Based on total visit time, I have performed more than 50% of the visit. Overall Objective - Vital Signs Vital signs: Vital Signs Temp 98.5 F 02/15/24 02:38 Pulse 83 02/15/24 02:38 Resp 16 02/15/24 02:38 BP 126/83 02/15/24 02:38 Pulse Ox 94 L 02/15/24 02:38 FiO2 Intake & Output 02/14/24 02/14/24 02/15/24 06:59 18:59 06:59 Intake Total 340 200 Output Total 691 472 1055 Balance -885 15 -1125 Intake: Oral 340 200 Output: Drainage 85 75 0 Medial Abdomen 35 50 0 Right Abdomen 50 25 0 Urine 500 1125 Stool 300 250 200 Other: Voiding Method Urinal Urinal Urinal - Labs CBC & Chem 7: 02/14/24 06:05 02/14/24 06:05 Labs: Abnormal Lab Results - Last 24 Hours (Table) 02/14/24 02/14/24 02/14/24 Range/Units 05:50 06:05 06:05 WBC 14.3 H (3.8-10.6) k/uL RBC 3.20 L (4.30-5.90) m/uL Hgb 9.5 L (13.0-17.5) gm/dL Hct 30.7 L (39.0-53.0) % Plt Count 551 H (150-450) k/uL Neutrophils # 11.5 H (1.3-7.7) k/uL Sodium 135 L (137-145) mmol/L Carbon Dioxide 31 H (22-30) mmol/L Creatinine 0.56 L (0.66-1.25) mg/dL Glucose 124 H (74-99) mg/dL POC Glucose (mg/dL) 142 H (70-110) mg/dL Calcium 8.3 L (8.4-10.2) mg/dL 02/14/24 02/14/24 Range/Units 12:42 16:34 WBC (3.8-10.6) k/uL RBC (4.30-5.90) m/uL Hgb (13.0-17.5) gm/dL Hct (39.0-53.0) % Plt Count (150-450) k/uL Neutrophils # (1.3-7.7) k/uL Sodium (137-145) mmol/L Carbon Dioxide (22-30) mmol/L Creatinine (0.66-1.25) mg/dL Glucose (74-99) mg/dL POC Glucose (mg/dL) 139 H 172 H (70-110) mg/dL Calcium (8.4-10.2) mg/dL Microbiology - Last 24 Hours (Table) 02/12/24 14:30 Gram Stain - Preliminary Aspirate Body Fluid Culture - Preliminary Enterococcus faecium 02/12/24 14:30 Gram Stain - Preliminary Aspirate Body Fluid Culture - Preliminary Enterococcus faecium
[2024-02-15] MEDS: PANTOPRAZOLE 40 MG TABLET PO SCH (05:57)
[2024-02-15 05:59] LABS: Glucose,Whole Blood 116 mg/dL (70-110)
[2024-02-15 08:33] LABS: HCT 28.3 % (39.6-50.0); MCH 29.6 pg (27.0-32.0); MCHC 31.8 g/dL (32.0-37.0); MCV 93.1 FL (80.0-97.0); Mean Platelet Volume 10.2 FL (9.5-12.2); NRBC Per 100 WBC 0 X 10*3/uL (0.00-0.01); Platelet Count 553 X 10*3/uL (140-440); RBC 3.04 X 10*6/uL (4.40-5.60); RDW 14.3 % (11.5-14.5); WBC 15.59 X 10*3/uL (4.50-10.00)
[2024-02-15 08:56] LABS: Basophils # (A) 0.08 X 10*3/uL (0.00-0.10); Basophils % (A) 0.5 %; Eosinophils # (A) 0.28 X 10*3/uL (0.04-0.35); Eosinophils % (A) 1.8 %; Lymphocytes # (A) 1.55 X 10*3/uL (0.90-5.00); Lymphocytes % (A) 9.9 %; Monocytes # (A) 1.52 X 10*3/uL (0.20-1.00); Monocytes % (A) 9.7 %; Neutrophils % (A) 75.8 %
[2024-02-15 11:58] LABS: Glucose,Whole Blood 99 mg/dL (70-110)
--- NOTE | 2024-02-15 14:41 | P.DS ---
Providers Date of admission: 01/25/24 18:04 Expected date of discharge: 02/15/24 Attending physician: Sadia Woods Consults: 01/25/24 18:02 Consult Physician Urgent Consulting Provider: Misti Kincaid Consult Reason/Comments: Diverticulitis with rupture Do you want consulting provider notified?: Already Contacted 01/26/24 04:24 Consult Physician Routine Consulting Provider: Karla López Consult Reason/Comments: Antibiotic management Do you want consulting provider notified?: Yes, Notify in am 01/27/24 10:37 Consult Physician Routine Consulting Provider: Gio Cole Consult Reason/Comments: Acute renal failure Do you want consulting provider notified?: Yes 01/27/24 12:19 Consult Physician Routine Consulting Provider: Cornelius Pelayo Consult Reason/Comments: Abnormal EKG Do you want consulting provider notified?: Yes, Notify in am 01/28/24 08:00 Consult Physician Routine Consulting Provider: Benny Vega Consult Reason/Comments: Spinal fracture, back pain Do you want consulting provider notified?: Yes, Notify in am 02/14/24 04:51 Consult Physician Urgent Consulting Provider: Angel Vasques Consult Reason/Comments: uncontrolled pain, chronic back pain Do you want consulting provider notified?: Yes Primary care physician: Joel Mahmood MD Hospital Course: Final diagnosis Acute diverticulitis with perforation and localized abscess s/p surgical intervention exploratory laporotomy, sigmoid resection and descending colostomy and drainage of intra-abdominal abscess on 01/30 with progression noted on repeat CT imaging on 02/11/2024 for new abscess formation Status post drainage tube placement with interventional radiology Sepsis secondary to intra-abdominal infection Acute kidney injury prerenal due to hypotension and dehydration. improving Metabolic acidosis treated hypophosphatemia will be supplemented and replace per protocol Diabetes mellitus type 2 Chronic back pain with degenerative disease of lumbar spine, was evaluated by orthopedics recommending conservative management at this time. Patient will need outpatient follow-up with orthopedics History of hypertension currently normotensive chronic pain syndrome Hx of coronary artery disease with prior PCI. Anxiety maintained on xanax scheduled Obesity with a BMI of 37.8 GI prophylaxis DVT prophylaxis Full code Discharge disposition Patient is being discharged in a stable condition with guarded prognosis to [facility]. Patient will follow-up with Dr. Groves in the outpatient setting upon discharge. Patient is to continue with IV antibiotics per ID recommendations as mentioned previously and close outpatient follow-up with general surgery Dr. Christie as scheduled. Patient to follow-up with his primary care provider Dr. Mahmood in the outpatient setting on discharge from [facility]. Total time taken is greater than 35 minutes. Hospital course This is a 53-year-old male who was recently admitted with increased abdominal pain with acute diverticulitis with perforation and also noted to have localized abscess status post exploratory laparotomy and descending colostomy for abscess. Patient noted to have increased abdominal distention underwent repeat CT imaging showing multiple abscesses and is status post drainage tubes. Patient is to continue with these tubes and outpatient follow-up with general surgery. Patient has received a PICC line and will continue on antibiotics per ID recommendations. Recommend repeat labs in the next few days to monitor kidney functions and white blood count. Repeat CBC, CMP, magnesium in 2 to 3 days. Patient is tolerating diet and has an ostomy that is functioning. Patient with extensive weakness and prolonged hospitalization and was evaluated by physical therapy recommending rehab and initially patient is reluctant although family is agreeable. Patient with chronic back pain is scheduled to have an outpatient surgery which has been postponed due to this current situation. Patient was evaluated by orthopedics recommending outpatient follow-up once stabilized from recent infection. Patient will follow-up with orthopedics in the outpatient setting. Patient evaluated by pain management as patient has significant pain with chronic pain and uncontrolled recommending fentanyl patch and continue on his Oxy. Patient will need outpatient follow-up with pain management. Please refer to other consultation notes for further HPI. Currently no reports of chest pain, shortness of breath, or palpitations. Patient is afebrile. No reports of nausea or vomiting and patient is tolerating diet. Patient will be going [facility] [place] [facility]. Guarded prognosis and high risk for readmission. Patient has significant comorbidities and extensive prolonged hospitalization. Physical exam: Gen: This is a 53-year-old male who is awake, alert and oriented x 3, well- developed, well-nourished, obese, elderly appearing HEENT: Head is atraumatic, normocephalic. Pupils equal, round. Sclerae is anicteric. NECK: Supple. No JVD. No lymphadenopathy. No thyromegaly. LUNGS: Diminished breath sounds bilaterally otherwise clear to auscultation. No wheezes or rhonchi. No intercostal retractions. HEART: S1, S2 are muffled ABDOMEN: Soft. Mildly distended, less tender bowel sounds are present. No masses. No tenderness. Ostomy noted with stool noted EXTREMITIES: No pedal edema. No calf tenderness. NEUROLOGICAL: Patient is awake, alert and oriented x3. Cranial nerves 2 through 12 are grossly intact. Diffusely weak Please refer to medication reconciliation sheet for a list of medications. The impression and plan of care has been dictated by An Liu, Nurse Practitioner as directed. Dr. Tawanda MD I have performed a history and examination and MDM of this patient, discussed the same with the dictator, and agree with the dictator's assessment and plan as written ,documented as a scribe. Based on total visit time, I have performed more than 50% of the visit. Patient Condition at Discharge: Fair Plan - Discharge Summary New Discharge Prescriptions: New DAPTOmycin [Cubicin] 600 mg IVPB Q24H 10 Days #10 each Anidulafungin [Eraxis] 100 mg IVPB DAILY@1600 10 Days #10 each Cefepime [Maxipime] 2 gm IVPB Q8HR 10 Days #30 each fentaNYL 25MCG/HR PATCH [Duragesic 25MCG/HR] 1 patch TRANSDERM Q72H #1 patch Heparin Sodium,Porcine (1 ml) [Heparin Sodium] 5,000 unit SQ Q12HR each INSULIN ASPART (NovoLOG) [NovoLOG (formulary)] 0 unit SQ ACHS each Pantoprazole [Protonix] 40 mg PO AC-BRKFST tab Acetaminophen Tab [Tylenol] 1,000 mg PO Q6HR tab ALPRAZolam [Xanax] 1 mg PO 0800,1400,2000 #6 tab Continue Cholecalciferol (Vitamin D3) [Vitamin D3 (3000 Iu)] 75 mcg PO HS methocarbamoL [Robaxin-750] 750 mg PO TID PRN PRN Reason: Muscle Spasm Pregabalin [Lyrica] 150 mg PO BID #4 cap MDD 300mg oxyCODONE HCL [oxyCODONE HCL (IR)] 15 mg PO Q6H PRN #4 tab MDD 60mg PRN Reason: Moderate Pain (Scale 4 To 6) Melatonin 5 mg PO HS Acetaminophen [Tylenol Arthritis] 650 mg PO Q8H PRN PRN Reason: Pain ALPRAZolam [Xanax] 1 mg PO TID PRN PRN Reason: Anxiety PARoxetine HCL [Paxil] 40 mg PO HS Meclizine HCl [Dramamine] 25 mg PO TID PRN PRN Reason: Motion Sickness Discontinued metFORMIN HCL 1,000 mg PO BID Benazepril HCl 40 mg PO HS Discharge Medication List ALPRAZolam [Xanax] 1 mg PO TID PRN 01/25/24 [History] Acetaminophen [Tylenol Arthritis] 650 mg PO Q8H PRN 01/25/24 [History] Cholecalciferol (Vitamin D3) [Vitamin D3 (3000 Iu)] 75 mcg PO HS 01/25/24 [History] Meclizine HCl [Dramamine] 25 mg PO TID PRN 01/25/24 [History] Melatonin 5 mg PO HS 01/25/24 [History] PARoxetine HCL [Paxil] 40 mg PO HS 01/25/24 [History] methocarbamoL [Robaxin-750] 750 mg PO TID PRN 01/25/24 [History] ALPRAZolam [Xanax] 1 mg PO 0800,1400,2000 #6 tab 02/15/24 [Rx] Acetaminophen Tab [Tylenol] 1,000 mg PO Q6HR tab 02/15/24 [Rx] Anidulafungin [Eraxis] 100 mg IVPB DAILY@1600 10 Days #10 each 02/15/24 [Rx] Cefepime [Maxipime] 2 gm IVPB Q8HR 10 Days #30 each 02/15/24 [Rx] DAPTOmycin [Cubicin] 600 mg IVPB Q24H 10 Days #10 each 02/15/24 [Rx] Heparin Sodium,Porcine (1 ml) [Heparin Sodium] 5,000 unit SQ Q12HR each 02/15/24 [Rx] INSULIN ASPART (NovoLOG) [NovoLOG (formulary)] 0 unit SQ ACHS each 02/15/24 [Rx] Pantoprazole [Protonix] 40 mg PO AC-BRKFST tab 02/15/24 [Rx] Pregabalin [Lyrica] 150 mg PO BID #4 cap MDD 300mg 02/15/24 [Rx] fentaNYL 25MCG/HR PATCH [Duragesic 25MCG/HR] 1 patch TRANSDERM Q72H #1 patch 02/15/24 [Rx] oxyCODONE HCL [oxyCODONE HCL (IR)] 15 mg PO Q6H PRN #4 tab MDD 60mg 02/15/24 [Rx] Follow up Appointment(s)/Referral(s): Misti Kincaid MD [STAFF PHYSICIAN] - 03/11/24 1:15 pm Benny Vega DO [Doctor of Osteopathic Medicine] - 3 Weeks Karla López MD [STAFF PHYSICIAN] - 2 Weeks Joel Mahmood MD [Primary Care Provider] - 1 Week Ambulatory/Diagnostic Orders: Complete Blood Count w/diff [LAB.AMB] Time Frame: 3 Days, Location: None Selected Patient Instructions/Handouts: Diverticulitis (GEN), Colostomy Care (DC), Diverticulitis Diet (DC), Colostomy Irrigation (GEN) Activity/Diet/Wound Care/Special Instructions: Ostomy: Last changed 02/05/2024 Daryl 1 piece cut-to-fit #[id number] Change every 3 to 7 days and as needed Empty when half full Increase protein diet, 90 to 100 g daily. Wound care includes antibacterial soap daily. Then pat dry. Apply hydrogen peroxide along midline incision and digna to prevent infection Follow-up with infectious disease DrMadison Discharge/Stand Alone Forms: Who Do I Call? Discharge Disposition: TRANSFER TO SNF/ECF
--- NOTE | 2024-02-15 15:52 | P.PN ---
Subjective Progress Note Date: 02/14/24 Principal diagnosis: Reason for follow-up is perforated diverticulitis with sepsis on admission Patient is a 53-year-old male with past medical history significant for diabetes mellitus hypertension anxiety bipolar depression and brain surgery patient presented to hospital with abdominal pain and this patient has been diagnosed with the ruptured diverticulitis and sepsis for the patient was transferred to [facility]. Patient is status post Exploratory laparotomy with sigmoid resection for perforated mid sigmoid colon, Descending colostomy and drainage of 1600 open abdominal abscess procedure completed on 01/31/2024. On today's evaluation that is 02/14/2024, Patient remains to be afebrile patient denies having any shortness of breath, the patient denies any chest pain or cough, the patient denies any nausea vomiting abdominal pain is currently controlled patient complaining of more pain to the lower back area Repeat cultures currently growing VRE with a sensitivity pending Objective - Vital Signs Vital signs: Vital Signs Temp 97.9 F 02/14/24 07:23 Pulse 67 02/14/24 07:23 Resp 14 02/14/24 01:04 BP 121/76 02/14/24 07:23 Pulse Ox 94 L 02/14/24 07:23 FiO2 Intake & Output 02/13/24 02/14/24 02/14/24 18:59 06:59 18:59 Intake Total 898 118 Output Total 1075 885 Balance -177 -885 118 Intake: Intake, IV Titration 300 Amount Anidulafungin 100 mg In 100 Sodium Chloride 0.9% 100 ml @ 84 mls/hr IVPB DAILY @1600 [facility] Rx#:[id number] Cefepime 2 gm In Sodium 100 Chloride 0.9% 100 ml @ 25 mls/hr IVPB Q8HR [facility] Rx# :[id number] DAPTOmycin 600 mg In 100 Sodium Chloride 0.9% 50 ml @ 100 mls/hr IVPB Q24H [facility] Rx#:[id number] Oral 598 118 Output: Drainage 85 Medial Abdomen 35 Right Abdomen 50 Urine 1075 500 Stool 300 Other: Voiding Method Urinal Urinal Urinal - Exam GENERAL DESCRIPTION: Middle-age male lying in bed in no distress RESPIRATORY SYSTEM: Unlabored breathing , decreased breath sounds at bases HEART: S1 S2 regular rate and rhythm , ABDOMEN: Soft , mild tenderness EXTREMITIES: No edema feet - Labs CBC & Chem 7: 02/15/24 06:28 02/14/24 06:05 Labs: Abnormal Lab Results - Last 24 Hours (Table) 02/13/24 02/13/24 02/14/24 Range/Units 16:30 20:02 05:50 WBC (3.8-10.6) k/uL RBC (4.30-5.90) m/uL Hgb (13.0-17.5) gm/dL Hct (39.0-53.0) % Plt Count (150-450) k/uL Neutrophils # (1.3-7.7) k/uL Sodium (137-145) mmol/L Carbon Dioxide (22-30) mmol/L Creatinine (0.66-1.25) mg/dL Glucose (74-99) mg/dL POC Glucose (mg/dL) 119 H 134 H 142 H (70-110) mg/dL Calcium (8.4-10.2) mg/dL 02/14/24 02/14/24 02/14/24 Range/Units 06:05 06:05 12:42 WBC 14.3 H (3.8-10.6) k/uL RBC 3.20 L (4.30-5.90) m/uL Hgb 9.5 L (13.0-17.5) gm/dL Hct 30.7 L (39.0-53.0) % Plt Count 551 H (150-450) k/uL Neutrophils # 11.5 H (1.3-7.7) k/uL Sodium 135 L (137-145) mmol/L Carbon Dioxide 31 H (22-30) mmol/L Creatinine 0.56 L (0.66-1.25) mg/dL Glucose 124 H (74-99) mg/dL POC Glucose (mg/dL) 139 H (70-110) mg/dL Calcium 8.3 L (8.4-10.2) mg/dL Microbiology - Last 24 Hours (Table) 02/12/24 14:30 Gram Stain - Preliminary Aspirate Body Fluid Culture - Preliminary Enterococcus faecium 02/12/24 14:30 Gram Stain - Preliminary Aspirate Body Fluid Culture - Preliminary Enterococcus faecium Assessment and Plan (1) Penicillin allergy Current Visit: Yes Status: Acute Code(s): Z88.0 - ALLERGY STATUS TO PENICILLIN SNOMED Code(s): 09571908 (2) Perforation of sigmoid colon due to diverticulitis Current Visit: Yes Status: Acute Code(s): K57.20 - DVTRCLI OF LG INT W PERFORATION AND ABSCESS W/O BLEEDING SNOMED Code(s): 0518053393885849 (3) Peritonitis Current Visit: Yes Status: Acute Code(s): K65.9 - PERITONITIS, UNSPECIFIED SNOMED Code(s): 55054664 Plan: 1patient presented hospital with sepsis in this patient did have fever tachycardia source is acute ruptured appendicitis and peritonitis and will need to cover for enteric gram-negative to be the likely pathogen less likely gram- positive kike 2-penicillin allergy that will limit the number of antibiotics safe to use 3-patient repeat CT abdominal pelvis did shows diverticulitis with multiple foci of air and contained leak,patient is status post sigmoid colectomy descending colostomy and drainage of abdominal abscess cultures currently growing VRE, Hamida albicans and none albicans Hamida 4-patient is afebrile however the patient noticed a worsening of the white count for the patient have repeat CT concerning for fluid collection questionable abscess in this patient who is status post CT-guided aspiration of the area with repeat cultures currently pending we will wait for those culture to finalize determine his discharge antibiotics follow-up continue with the cefepime Flagyl Eraxis and daptomycin Dictation was produced using [employer] dictation software. please excuse any grammatical, word or spelling errors. Time with Patient: Less than 30
--- NOTE | 2024-02-15 15:54 | P.PN ---
Subjective Progress Note Date: 02/15/24 Principal diagnosis: Reason for follow-up is perforated diverticulitis with sepsis on admission Patient is a 53-year-old male with past medical history significant for diabetes mellitus hypertension anxiety bipolar depression and brain surgery patient presented to hospital with abdominal pain and this patient has been diagnosed with the ruptured diverticulitis and sepsis for the patient was transferred to [facility]. Patient is status post Exploratory laparotomy with sigmoid resection for perforated mid sigmoid colon, Descending colostomy and drainage of 1600 open abdominal abscess procedure completed on 01/31/2024. On today's evaluation that is 02/15/2024,the patient denies any fever or any chills, patient is breathing comfortably on room air, the patient denies chest pain shortness of breath and no significant cough, patient denies abdominal pain, no nausea vomiting did have output in the colostomy bag still complaining of back pain and about his pain medication. Patient white count is 15.5 9 repeat abdominal culture now growing VRE that is resistant to daptomycin as per discussion with the micro lab as it was a head and sensitivity Objective - Vital Signs Vital signs: Vital Signs Temp 98 F 02/15/24 13:48 Pulse 74 02/15/24 13:48 Resp 19 02/15/24 13:48 BP 133/80 02/15/24 13:48 Pulse Ox 93 L 02/15/24 13:48 FiO2 Intake & Output 02/14/24 02/15/24 02/15/24 18:59 06:59 18:59 Intake Total 340 200 Output Total 325 1505 150 Balance 15 -1305 -150 Weight 123 kg Intake: Oral 340 200 Output: Drainage 75 30 Medial Abdomen 50 20 Right Abdomen 25 10 Urine 1125 Stool 250 350 150 Other: Voiding Method Urinal Urinal - Exam GENERAL DESCRIPTION: Middle-age male lying in bed in no distress RESPIRATORY SYSTEM: Unlabored breathing , decreased breath sounds at bases HEART: S1 S2 regular rate and rhythm , ABDOMEN: Soft , mild tenderness EXTREMITIES: No edema feet - Labs CBC & Chem 7: 02/15/24 06:28 02/14/24 06:05 Labs: Abnormal Lab Results - Last 24 Hours (Table) 02/14/24 02/15/24 02/15/24 Range/Units 16:34 05:54 06:28 WBC 15.59 H (4.50-10.00) X 10*3/uL RBC 3.04 L (4.40-5.60) X 10*6/uL Hgb 9.0 L (13.0-17.0) g/dL Hct 28.3 L (39.6-50.0) % MCHC 31.8 L (32.0-37.0) g/dL Plt Count 553 H (140-440) X 10*3/uL Immature Gran # 0.36 H (0.00-0.04) X 10*3/uL Neutrophils # 11.80 H (1.80-7.70) X 10*3/uL Monocytes # 1.52 H (0.20-1.00) X 10*3/uL POC Glucose (mg/dL) 172 H 116 H (70-110) mg/dL Microbiology - Last 24 Hours (Table) 02/12/24 14:30 Anaerobic Culture - Preliminary Abdominal Fluid 02/12/24 14:30 Anaerobic Culture - Preliminary Abdominal Fluid 02/12/24 14:30 Gram Stain - Final Aspirate Body Fluid Culture - Final Enterococcus faecium VRE 02/12/24 14:30 Gram Stain - Final Aspirate Body Fluid Culture - Final Enterococcus faecium VRE Assessment and Plan (1) Penicillin allergy Current Visit: Yes Status: Acute Code(s): Z88.0 - ALLERGY STATUS TO PENICILLIN SNOMED Code(s): 11171236 (2) Perforation of sigmoid colon due to diverticulitis Current Visit: Yes Status: Acute Code(s): K57.20 - DVTRCLI OF LG INT W PERFORATION AND ABSCESS W/O BLEEDING SNOMED Code(s): 6392695740258600 (3) Peritonitis Current Visit: Yes Status: Acute Code(s): K65.9 - PERITONITIS, UNSPECIFIED SNOMED Code(s): 39993313 Plan: 1patient presented hospital with sepsis in this patient did have fever tachycardia source is acute ruptured appendicitis and peritonitis and will need to cover for enteric gram-negative to be the likely pathogen less likely gram- positive kike 2-penicillin allergy that will limit the number of antibiotics safe to use 3-patient repeat CT abdominal pelvis did shows diverticulitis with multiple foci of air and contained leak,patient is status post sigmoid colectomy descending colostomy and drainage of abdominal abscess cultures currently growing VRE, Hamida albicans and none albicans Hamida 4-patient is afebrile white count is 15.9 the patient repeat abdominal culture has been finalized with the VRE after discussion of this with the micro lab at [facility] the pathogen is resistant to daptomycin we will discontinue daptomycin only option we have is the Zyvox patient is currently on Paxil and fentanyl patch that is interacting with Zyvox as we have no other choice to treat his abdominal infection recommend to discontinue Paxil and fentanyl and start the patient on Zyvox we will continue with the Eraxis cefepime and Flagyl repeat a CBC in the a.m. hold discharge for now discussed with the medical APRON WORKER Dictation was produced using [employer] dictation software. please excuse any grammatical, word or spelling errors. Time with Patient: Greater than 30
[2024-02-15 16:34] LABS: Glucose,Whole Blood 138 mg/dL (70-110)
[2024-02-15] MEDS: LINEZOLID 600 MG TAB PO SCH (20:12)
[2024-02-15 21:21] LABS: Glucose,Whole Blood 96 mg/dL (70-110)
--- NOTE | 2024-02-15 21:23 | P.PN ---
Subjective Progress Note Date: 02/15/24 Principal diagnosis: Huntley's procedure Patient was not discharged today after cultures showed daptomycin resistant VRE. Patient is being kept for IV antibiotics through the weekend. Patient is tolerating his regular diet. Complaining of mild abdominal pain 3 out of 10, complaining of chronic back pain which is higher in severity. Patient has a variety of analgesics scheduled. He says this is not enough. He is afebrile. White blood cell count 15. Objective - Vital Signs Vital signs: Vital Signs Temp 98 F 02/15/24 13:48 Pulse 74 02/15/24 13:48 Resp 19 02/15/24 13:48 BP 133/80 02/15/24 13:48 Pulse Ox 93 L 02/15/24 13:48 FiO2 Intake & Output 02/15/24 02/15/24 02/16/24 06:59 18:59 06:59 Intake Total 200 Output Total 1505 150 Balance -1305 -150 Weight 123 kg Intake: Oral 200 Output: Drainage 30 Medial Abdomen 20 Right Abdomen 10 Urine 1125 Stool 350 150 Other: Voiding Method Urinal # Voids 5 - Exam Abdomen: Soft, nondistended, mild tenderness, dressing with old purulent fluid present on the bandage however no active drainage seen between digna., No fluctuance, no erythema - Labs CBC & Chem 7: 02/15/24 06:28 02/14/24 06:05 Labs: Abnormal Lab Results - Last 24 Hours (Table) 02/15/24 02/15/24 02/15/24 Range/Units 05:54 06:28 16:32 WBC 15.59 H (4.50-10.00) X 10*3/uL RBC 3.04 L (4.40-5.60) X 10*6/uL Hgb 9.0 L (13.0-17.0) g/dL Hct 28.3 L (39.6-50.0) % MCHC 31.8 L (32.0-37.0) g/dL Plt Count 553 H (140-440) X 10*3/uL Immature Gran # 0.36 H (0.00-0.04) X 10*3/uL Neutrophils # 11.80 H (1.80-7.70) X 10*3/uL Monocytes # 1.52 H (0.20-1.00) X 10*3/uL POC Glucose (mg/dL) 116 H 138 H (70-110) mg/dL Microbiology - Last 24 Hours (Table) 02/12/24 14:30 Anaerobic Culture - Preliminary Abdominal Fluid 02/12/24 14:30 Anaerobic Culture - Preliminary Abdominal Fluid 02/12/24 14:30 Gram Stain - Final Aspirate Body Fluid Culture - Final Enterococcus faecium VRE 02/12/24 14:30 Gram Stain - Final Aspirate Body Fluid Culture - Final Enterococcus faecium VRE Assessment and Plan (1) Diverticulitis Narrative/Plan: 53-year-old male with recent Huntley's procedure for perforated sigmoid diverticulitis. Patient with daptomycin resistant VRE. Continue IV antibiotics per infectious disease. Continue low fiber diet. Spoke with nursing staff. Dressing will be changed and incision cleansed. Monitor for drainage. Will follow. Current Visit: Yes Status: Acute Code(s): K57.92 - DVTRCLI OF INTEST, PART UNSP, W/O PERF OR ABSCESS W/O BLEED SNOMED Code(s): 361156709
--- NOTE | 2024-02-16 04:57 | P.PN ---
Subjective Progress Note Date: 02/15/24 53-year-old gentleman past medical history significant for chronic back pain, history of hypertension, history of diabetes mellitus presented to the emergency department with complaints of acute onset of abdominal pain on top of chronic back pain. Patient states symptom onset was 24 hours prior to presentation. Patient said he has a progressive decrease in appetite and had vomited a few times before coming in. Patient said he had 4 small stools however abdominal pain persisted. Patient was sent as a transfer from an outside hospital due to concern for diverticulitis with perforation. General surgery team was contacted, patient was made n.p.o. consultation obtained from general surgery and infectious disease 02/02/2024 Patient is seen and evaluated in room at bedside; no specific complaints reported Vital signs are reviewed and temperature 98.4, pulse 82, respiration 18 and blood pressure 165/78 with O2 saturation 96% Labs revealed WBC of 22.7, improved from 23.7 yesterday, hemoglobin 11.4, platelet count of 238, sodium 138, potassium 4.1, BUNs/creatinine 18/0.76 and blood glucose of 113 -patient presented hospital with sepsis in this patient did have fever tachycardia source is acute ruptured appendicitis and peritonitis and will need to cover for enteric gram-negative to be the likely pathogen less likely gram- positive kike -penicillin allergy that will limit the number of antibiotics safe to use -patient repeat CT abdominal pelvis did shows diverticulitis with multiple foci of air and contained leak -patient white count slightly down today will monitor closely; continue with cefepime and Flagyl we will repeat CBC with a.m. lab 02/03/2024 Patient is seen and evaluated resting comfortably in bed; continues to report uncontrolled pain; reports his Dilaudid has been changed; ostomy not producing at this time Vital signs are reviewed and remained stable Lab review shows improved white blood count 16.3 hemoglobin of 9.6 and platelet count of 268, sodium 136, potassium 3.8, BUNs/creatinine of 12/0.5, phosphorus is low at 1.9 magnesium stable at 1.8 -we will supplement electrolytes and continue to monitor e will supplement electrolytes and continue to monitor --Surgery recommending to advance diet as tolerated 02/04/2024 Patient awake alert He has some abdominal pain tenderness, expected postoperatively, wound closed with wound VAC in place, left lower colostomy bag with small liquid brown stool. No vomiting, poor appetite He is on Dilaudid drip 0.2 and normal saline 50 mL/h 02/05/2024 Patient awake alert He is in distress due to abdominal pain, wound VAC in place He is still on TPN Eraxis added to IV Flagyl and cefepime. Midline is requested Plan for ECF on 02/06/2024 Patient abdominal pain is controlled today. He can tolerate some liquid diet with no vomiting He emptied his colostomy bag yesterday. This morning it has no or minimal discharge He remains on TPN Plan for midline Patient will benefit from ECF upon discharge. Currently on broad-spectrum antibiotic with cefepime, IV Flagyl, Eraxis and daptomycin, ID team on the case 02/07/2024 Patient continued to improve slowly and gradually He tolerates oral diet, still getting TPN Abdominal pain is better 3/10 This morning he emptied his colostomy bag No chest pain or dyspnea. He remains on daptomycin, cefepime Flagyl and antifungal switched to an indulfaungin 02/08/2024 Patient abdominal pain controlled Patient is getting TPN, with plan to taper it off No new complaints Patient can be transferred out of the select unit 02/09/2024 Patient also with significant abdominal pain, Is complaining from more severe back pain today requiring extra dose of Dilaudid Patient is stable 02/10/2024 Patient complains much of his back pain asking for better pain control stating that he is taking IV Dilaudid and is not more satisfied. Patient on IV Dilaudid 1 mg every 6 hours we lowered to 0.5 mg and increase frequency of oxycodone from every 6 hours up to every 4 hours. Patient remains on Eraxis, daptomycin and IV Flagyl and cefepime 02/11/2024 Patient is seen and evaluated in follow-up today with general surgery and infectious disease following. Patient is maintained on antibiotics and does have a PICC line. Surgical digna of the abdomen including sites appear well- approximated although patient continues to have some abdominal distention. Patient is having bowel movements although continued abdominal pain. Plan is for repeat CT abdomen today. Will await report and appreciate input and recommendations from surgery. Case management/social work following as patient will be needing rehab on discharge for continued strength and mobility as patient has had significant clinical decline and extreme weakness. Patient has been encouraged to use incentive spirometer at least 10 times every hour while awake. at the bedside questions and concerns that were answered. 02/12/2024 Patient is seen in follow-up today underwent CT abdomen yesterday showing multiple abscesses and progression and IR has been consulted for drainage tube placement. Patient is continued on antibiotics with infectious disease following. White count mildly improved from yesterday and we will follow-up on cultures from the drainage. Per nursing staff patient is requesting pain medication [id number] and will adjust medications accordingly. Patient has been instructed to increase activity as tolerated and recommend physical therapy daily. Patient will need ECF on discharge. 02/13/2024 Patient is seen in follow-up today with multiple medical consultations foll owing. General surgery following and interventional radiology had evaluated the patient status post drainage tubes as patient was noted to have further abscesses on repeat CT imaging. Patient continues on antibiotics with infectious disease following and awaiting finalized cultures. Plan is for R egency on discharge for continued strength and mobility as patient reports is unable to get up and walk and needs assistance. Patient with multiple antibiotics and wound care would make it extremely unsafe and difficult to manage and high risk for readmission if went home. Patient is adamant he is going home on discharge although family feels he needs rehab. Patient is extremely agitated today regarding his pain medication regimen as he reports he has significant 10/10 pain with a history of chronic pain and his home medications are not working. Patient reports his pain is in his back and his constant headaches that he reports has daily due to his previous past medical history of a brain hemorrhage. Per surgery Dr. Christie, patient is to continue on current regimen as she has ordered. Awaiting finalized cultures to determine appropriate discharge antibiotics. Patient does have a PICC line. 02/14/2024 Patient being seen this morning with multiple medical consultations following. Patient does have a PICC line and will continue on antibiotic therapy outpatient. Patient will require at least 10 days of antibiotics per ID recommendations. Patient reported pain was uncontrolled and continued on IV Dilaudid and have consulted pain management being started on fentanyl patch. Recommend and discussed with patient and family regarding IV narcotic use limitation. General surgery following and has cleared the patient for discharge and will be monitored overnight as patient did have a low-grade temp last night. White count is trending down and recommend close outpatient follow-up labs. Patient does have a scheduled appointment with general surgery outpatient. Patient to follow-up with orthopedics once medically stable from current clinical condition. Plan is for [facility] and [facility] and currently awaiting insurance authorization. 02/15/2024 Patient is seen and evaluated in follow-up today initially was scheduled for discharge to ECF although cultures showing multiple resistance and patient is maintained on Paxil making it difficult for antibiotic therapy recommendations and patient would be unable to take Zyvox because of the Paxil. Patient will continue on IV antibiotics and does have a PICC line with infectious disease following recommending to keep the patient hospitalized and monitor and make adjustments accordingly. Patient white count remains elevated at 15 and patient is afebrile. Patient continues to report significant pain which is secondary to his chronic back pain. Case management is following and has made [facility] aware. Patient has received insurance authorization which will need to be adjusted once patient is medically stable for discharge. Due to the holiday weekend patient will likely not discharge until early next week. Review of systems: Constitutional: No reports of fatigue, fever, or chills Cardiovascular: No reports of chest pain or palpitations Respiratory: No reports of shortness of breath or cough GI: reports of intermittent nausea, no vomiting, reports having bowel movements in the ostomy, liquid, reports gas, reports current abdominal pain is controlled : No reports of dysuria or retention Neurovascular: reports of generalized weakness and continued severe chronic back pain that is continuous and fentanyl patch is not helping Physical exam: GENERAL: The patient is alert and oriented x3, obese. Well developed, well nourished. HEENT: Pupils are round and equally reacting to light. EOMI. No scleral icterus. No conjunctival pallor. Normocephalic, atraumatic. No pharyngeal erythema. No thyromegaly. CARDIOVASCULAR: S1 and S2 muffled PULMONARY: Diminished breath sounds bilaterally otherwise chest is clear to auscultation, no wheezing , no crackles. ABDOMEN: Soft, tender on palpation, somewhat distended, normoactive bowel sounds. No palpable organomegaly. Left lower quadrant colostomy in place, vertical wound with multiple digna noted appears well-approximated, surgical dressing is dry and intact MUSCULOSKELETAL: No joint swelling or deformity. EXTREMITIES: No cyanosis, clubbing, or pedal edema. Generalized edema noted of lower extremities NEUROLOGICAL: Gross neurological examination did not reveal any focal deficits. Diffusely weak SKIN: No rashes. no petechiae. Pale Assessment: Acute diverticulitis with perforation and localized abscess s/p surgical intervention exploratory laporotomy, sigmoid resection and descending colostomy and drainage of intra-abdominal abscess on 01/30 with progression noted on repeat CT imaging on 02/11/2024 for new abscess formation Status post drainage tube placement with interventional radiology Sepsis secondary to intra-abdominal infection Acute kidney injury prerenal due to hypotension and dehydration. 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 Anxiety maintained on xanax scheduled Obesity with a BMI of 37.8 GI prophylaxis DVT prophylaxis Full code Plan: Continue with antibiotics with infectious disease following. Patient does have a PICC line and will require IV antibiotics outpatient. Patient's cultures with multidrug resistance making it difficult to adjust medications due to pat ient being on Paxil as we have limited options due to the resistance. Adjustments being made to antibiotic therapy and recommend holding the patient at this time to adjust medications and monitor. Patient to be on at least 10 days IV antibiotic therapy on discharge Continue local wound care per general surgery and infectious disease General surgery following and patient continues to have some abdominal discomfort and distention with repeat CT abdomen showing multiple abscesses and fluid collection. IR has placed drainage tubes. Patient has been cleared by surgery for outpatient follow-up Patient continues to report uncontrolled pain and pain management was consulted and has started the patient on a fentanyl patch. Patient reports the patch is not helping. Recommend limiting IV narcotic use as per nursing staff patient had been requesting IV Dilaudid [id number]. Recommend PT/OT therapy daily. Case management following as patient will need ECF on discharge. Patient has received authorization for [facility] Encouraged oral intake with diet recommendations per surgery Continue incentive spirometer use at least 10 times every hour while awake due to multiple complex medical issues, prognosis is guarded Likely discharge planning early next week given the holiday weekend. Insurance authorization will need to be resubmitted per [facility] liaison once patient is medically stable The impression and plan of care has been dictated by An Liu, Nurse Practitioner as directed. Dr. Tawanda MD I have performed a history and examination and MDM of this patient, discussed the same with the dictator, and agree with the dictator's assessment and plan as written ,documented as a scribe. Based on total visit time, I have performed more than 50% of the visit. Overall Objective - Vital Signs Vital signs: Vital Signs Temp 98 F 02/15/24 13:48 Pulse 74 02/15/24 13:48 Resp 19 02/15/24 13:48 BP 133/80 02/15/24 13:48 Pulse Ox 93 L 02/15/24 13:48 FiO2 Intake & Output 02/14/24 02/15/24 02/15/24 18:59 06:59 18:59 Intake Total 340 200 Output Total 325 1505 150 Balance 15 -1305 -150 Weight 123 kg Intake: Oral 340 200 Output: Drainage 75 30 Medial Abdomen 50 20 Right Abdomen 25 10 Urine 1125 Stool 250 350 150 Other: Voiding Method Urinal Urinal - Labs CBC & Chem 7: 02/15/24 06:28 02/14/24 06:05 Labs: Abnormal Lab Results - Last 24 Hours (Table) 02/14/24 02/15/24 02/15/24 Range/Units 16:34 05:54 06:28 WBC 15.59 H (4.50-10.00) X 10*3/uL RBC 3.04 L (4.40-5.60) X 10*6/uL Hgb 9.0 L (13.0-17.0) g/dL Hct 28.3 L (39.6-50.0) % MCHC 31.8 L (32.0-37.0) g/dL Plt Count 553 H (140-440) X 10*3/uL Immature Gran # 0.36 H (0.00-0.04) X 10*3/uL Neutrophils # 11.80 H (1.80-7.70) X 10*3/uL Monocytes # 1.52 H (0.20-1.00) X 10*3/uL POC Glucose (mg/dL) 172 H 116 H (70-110) mg/dL Microbiology - Last 24 Hours (Table) 02/12/24 14:30 Anaerobic Culture - Preliminary Abdominal Fluid 02/12/24 14:30 Anaerobic Culture - Preliminary Abdominal Fluid 02/12/24 14:30 Gram Stain - Final Aspirate Body Fluid Culture - Final Enterococcus faecium VRE 02/12/24 14:30 Gram Stain - Final Aspirate Body Fluid Culture - Final Enterococcus faecium VRE
[2024-02-16 05:58] LABS: Glucose,Whole Blood 90 mg/dL (70-110)
[2024-02-16 09:19] LABS: Basophils # (A) 0.09 X 10*3/uL (0.00-0.10); Basophils % (A) 0.5 %; Eosinophils # (A) 0.35 X 10*3/uL (0.04-0.35); Eosinophils % (A) 2.1 %; HCT 29.7 % (39.6-50.0); HGB 9.4 g/dL (13.0-17.0); Lymphocytes # (A) 1.79 X 10*3/uL (0.90-5.00); Lymphocytes % (A) 10.9 %; MCH 29.7 pg (27.0-32.0); MCHC 31.6 g/dL (32.0-37.0); Monocytes # (A) 1.55 X 10*3/uL (0.20-1.00); Monocytes % (A) 9.5 %; NRBC Per 100 WBC 0 X 10*3/uL (0.00-0.01); Neutrophils # (A) 12.25 X 10*3/uL (1.80-7.70); Neutrophils % (A) 74.8 %; Platelet Count 590 X 10*3/uL (140-440); RBC 3.16 X 10*6/uL (4.40-5.60); RDW 14.5 % (11.5-14.5); WBC 16.39 X 10*3/uL (4.50-10.00)
[2024-02-16 09:21] LABS: Blood Urea Nitrogen 9.9 mg/dL (9.0-27.0); Glucose 93 mg/dL (70-110); Magnesium 1.7 mg/dL (1.5-2.4)
[2024-02-16 09:22] LABS: Calcium 8.5 mg/dL (8.7-10.3); Chloride 99 mmol/L (96-109); Potassium 4.8 mmol/L (3.5-5.5); Sodium 135 mmol/L (135-145)
[2024-02-16 11:52] LABS: Glucose,Whole Blood 99 mg/dL (70-110)
--- NOTE | 2024-02-16 13:51 | P.PN ---
Subjective Progress Note Date: 02/16/24 Principal diagnosis: Reason for follow-up is perforated diverticulitis with sepsis on admission Patient is a 53-year-old male with past medical history significant for diabetes mellitus hypertension anxiety bipolar depression and brain surgery patient presented to hospital with abdominal pain and this patient has been diagnosed with the ruptured diverticulitis and sepsis for the patient was transferred to [facility]. Patient is status post Exploratory laparotomy with sigmoid resection for perforated mid sigmoid colon, Descending colostomy and drainage of 1600 open abdominal abscess procedure completed on 01/31/2024. On today's evaluation that is 02/16/2024,the patient remains to be afebrile, patient is on room air not requiring supplemental oxygen patient has been resting comfortably in no distressed no vomiting or any change reported by nursing staff. Patient white count is 16.39, creatinine 0.6 Objective - Vital Signs Vital signs: Vital Signs Temp 97.8 F 02/16/24 03:18 Pulse 73 02/16/24 03:18 Resp 16 02/16/24 03:18 BP 151/83 02/16/24 03:18 Pulse Ox 92 L 02/16/24 03:18 FiO2 Intake & Output 02/15/24 02/16/24 02/16/24 18:59 06:59 18:59 Output Total 150 1880 Balance -150 -1880 Weight 123 kg Output: Drainage 80 Medial Abdomen 40 Right Abdomen 40 Urine 1800 Stool 150 Other: Voiding Method Urinal # Voids 5 1 - Labs CBC & Chem 7: 02/16/24 06:11 02/16/24 06:11 Labs: Abnormal Lab Results - Last 24 Hours (Table) 02/15/24 02/15/24 Range/Units 06:28 16:32 WBC 15.59 H (4.50-10.00) X 10*3/uL RBC 3.04 L (4.40-5.60) X 10*6/uL Hgb 9.0 L (13.0-17.0) g/dL Hct 28.3 L (39.6-50.0) % MCHC 31.8 L (32.0-37.0) g/dL Plt Count 553 H (140-440) X 10*3/uL Immature Gran # 0.36 H (0.00-0.04) X 10*3/uL Neutrophils # 11.80 H (1.80-7.70) X 10*3/uL Monocytes # 1.52 H (0.20-1.00) X 10*3/uL POC Glucose (mg/dL) 138 H (70-110) mg/dL Microbiology - Last 24 Hours (Table) 02/12/24 14:30 Anaerobic Culture - Preliminary Abdominal Fluid 02/12/24 14:30 Anaerobic Culture - Preliminary Abdominal Fluid 02/12/24 14:30 Gram Stain - Final Aspirate Body Fluid Culture - Final Enterococcus faecium VRE 02/12/24 14:30 Gram Stain - Final Aspirate Body Fluid Culture - Final Enterococcus faecium VRE Assessment and Plan (1) Penicillin allergy Current Visit: Yes Status: Acute Code(s): Z88.0 - ALLERGY STATUS TO PENICILLIN SNOMED Code(s): 52301248 (2) Perforation of sigmoid colon due to diverticulitis Current Visit: Yes Status: Acute Code(s): K57.20 - DVTRCLI OF LG INT W PERFORATION AND ABSCESS W/O BLEEDING SNOMED Code(s): 7358956175631842 (3) Peritonitis Current Visit: Yes Status: Acute Code(s): K65.9 - PERITONITIS, UNSPECIFIED SNOMED Code(s): 60563700 Plan: 1patient presented hospital with sepsis in this patient did have fever tachycardia source is acute ruptured appendicitis and peritonitis and will need to cover for enteric gram-negative to be the likely pathogen less likely gram- positive kike 2-penicillin allergy that will limit the number of antibiotics safe to use 3-patient repeat CT abdominal pelvis did shows diverticulitis with multiple foci of air and contained leak,patient is status post sigmoid colectomy descending colostomy and drainage of abdominal abscess cultures currently growing VRE, Hamida albicans and none albicans Hamida 4-patient is afebrile white count is mildly elevated, patient antibiotic adjusted to addition of Zyvox yesterday to continue along with with the Eraxis cefepime and Flagyl repeat a CBC in the a.m. monitor clinical course closely Dictation was produced using [employer] dictation software. please excuse any grammatical, word or spelling errors. Time with Patient: Less than 30
[2024-02-16] MEDS: LIDOCAINE 4% PATCH TOPICAL SCH (14:59)
[2024-02-16] MEDS: IOPAMIDOL CONTRAST (ORAL USE) VIAL PO PRN (15:00)
--- NOTE | 2024-02-16 16:38 | P.PN ---
Subjective patient seen and evaluated bedside. Patient complaining of severe back pain. Patient denies significant abdominal pain. Objective - Vital Signs Vital signs: Vital Signs Temp 98.3 F 02/16/24 14:19 Pulse 83 02/16/24 14:19 Resp 17 02/16/24 14:19 BP 122/65 02/16/24 14:19 Pulse Ox 95 02/16/24 14:19 FiO2 Intake & Output 02/15/24 02/16/24 02/16/24 18:59 06:59 18:59 Output Total 150 1880 1190 Balance -150 -1880 -1190 Weight 123 kg Output: Drainage 80 110 Medial Abdomen 40 40 Right Abdomen 40 70 Urine 1800 980 Stool 150 100 Other: Voiding Method Urinal Urinal # Voids 5 1 - Exam general no acute distress alert and oriented 3 Cardia vascular regular in rhythm Pulmonary nonlabored breathing Abdomen soft, minimal tenderness to palpation around the midline incision, some drainage around the midline incision digna intact. No pus expressed upon pal pation, ostomy pink patent and producing - Labs CBC & Chem 7: 02/16/24 06:11 02/16/24 06:11 Labs: Abnormal Lab Results - Last 24 Hours (Table) 02/16/24 02/16/24 Range/Units 06:11 06:11 WBC 16.39 H (4.50-10.00) X 10*3/uL RBC 3.16 L (4.40-5.60) X 10*6/uL Hgb 9.4 L (13.0-17.0) g/dL Hct 29.7 L (39.6-50.0) % MCHC 31.6 L (32.0-37.0) g/dL Plt Count 590 H (140-440) X 10*3/uL Immature Gran # 0.36 H (0.00-0.04) X 10*3/uL Neutrophils # 12.25 H (1.80-7.70) X 10*3/uL Monocytes # 1.55 H (0.20-1.00) X 10*3/uL Calcium 8.5 L (8.7-10.3) mg/dL Microbiology - Last 24 Hours (Table) 02/12/24 14:30 Anaerobic Culture - Preliminary Abdominal Fluid 02/12/24 14:30 Anaerobic Culture - Preliminary Abdominal Fluid Assessment and Plan Assessment: 53-year-old male status post Huntley's with VRE in the wound IV antibiotics Lidocaine patch to back Encourage undulation Assess barometer Time with Patient: Less than 30
[2024-02-16 17:00] LABS: Glucose,Whole Blood 116 mg/dL (70-110)
--- NOTE | 2024-02-16 17:17 | P.PN ---
Subjective Progress Note Date: 02/16/24 Patient continues to complain of severe back pain, recently he was started on Duragesic patch 25 mcg 72 hours, he is also currently on oxycodone 15 mg every 6 hours as needed, Dilaudid 0.5 mg to 1 mg as needed, Lyrica 150 mg twice daily, Robaxin-750 3 times daily, patient reported that Duragesic patch did not help his pain and he is complaining that the patch does not stick to his skin. Assessment and Plan Assessment: 53-year-old male status post Huntley's with VRE in the wound IV antibiotics Lidocaine patch to back Encourage undulation Assess barometer Time with Patient: Less than 30 Objective - Vital Signs Vital signs: Vital Signs Temp 98.3 F 02/16/24 14:19 Pulse 83 02/16/24 14:19 Resp 17 02/16/24 14:19 BP 122/65 02/16/24 14:19 Pulse Ox 95 02/16/24 14:19 FiO2 Intake & Output 02/15/24 02/16/24 02/16/24 18:59 06:59 18:59 Output Total 150 1880 1190 Balance -150 -1880 -1190 Weight 123 kg Output: Drainage 80 110 Medial Abdomen 40 40 Right Abdomen 40 70 Urine 1800 980 Stool 150 100 Other: Voiding Method Urinal Urinal # Voids 5 1 - Exam general no acute distress alert and oriented 3 Cardia vascular regular in rhythm Pulmonary nonlabored breathing Abdomen soft, minimal tenderness to palpation around the midline incision, some drainage around the midline incision digna intact. No pus expressed upon palpation, ostomy pink patent and producing - Labs CBC & Chem 7: 02/16/24 06:11 02/16/24 06:11 Labs: Abnormal Lab Results - Last 24 Hours (Table) 02/16/24 02/16/24 02/16/24 Range/Units 06:11 06:11 16:54 WBC 16.39 H (4.50-10.00) X 10*3/uL RBC 3.16 L (4.40-5.60) X 10*6/uL Hgb 9.4 L (13.0-17.0) g/dL Hct 29.7 L (39.6-50.0) % MCHC 31.6 L (32.0-37.0) g/dL Plt Count 590 H (140-440) X 10*3/uL Immature Gran # 0.36 H (0.00-0.04) X 10*3/uL Neutrophils # 12.25 H (1.80-7.70) X 10*3/uL Monocytes # 1.55 H (0.20-1.00) X 10*3/uL POC Glucose (mg/dL) 116 H (70-110) mg/dL Calcium 8.5 L (8.7-10.3) mg/dL Microbiology - Last 24 Hours (Table) 02/12/24 14:30 Anaerobic Culture - Preliminary Abdominal Fluid 02/12/24 14:30 Anaerobic Culture - Preliminary Abdominal Fluid Assessment and Plan Assessment: ASSESSMENT: 1. Perforated sigmoid diverticulitis with peritonitis 2. Acute renal failure, resolved 3. Huntley's procedure with descending colostomy 4. Sepsis present on admission 5. Compression fracture lumbar spine 6. Chronic pain syndrome due to chronic back pain 7. Peritoneal abscess due to diverticular disease Patient was started on Duragesic patch 25 mcg 72 hours but he reported that it did not stick to the skin and also it did not help him, for this reason I recommend to discontinue Duragesic patch patient will be started on MS Contin 15 mg twice a day, continue oxycodon 15 mg every 6 hours, RN and continue Lyrica 150 mg twice a day continue Robaxin 750 mg every 8 hours Time with Patient: Less than 30
[2024-02-16 20:31] LABS: Glucose,Whole Blood 97 mg/dL (70-110)
[2024-02-16] MEDS: MORPHINE SULFATE ER 15 MG TABLET PO SCH (21:05)
--- NOTE | 2024-02-16 22:09 | CT ---
EXAMINATION TYPE: CT abdomen pelvis wo con DATE OF EXAM: 02/16/2024 COMPARISON: 02/11/2024 INDICATION: abscess DLP: 1109.7 mGycm, Automated exposure control for dose reduction was used. CONTRAST: 0 mL of Isovue 300. Study performed with Oral Contrast TECHNIQUE: Axial images were obtained from above the diaphragm to the pubic rami in the axial plane a t 5 mm thick sections. Reconstructed images are reviewed on the computer in the coronal plane. FINDINGS: Limited CT sections are obtained the lung bases. There is a small right pleural effusion. Infiltrate is adjacent the lateral right lung base. CT ABDOMEN: There is an ostomy in the left lower quadrant. Surgical skin digna in midline. Liver: There is a low-density collection adjacent to the right lobe liver deforming the liver loculat ed fluid or abscess should be considered. This is smaller than comparison. Spleen: Normal Pancreas: Normal Adrenal glands: The adrenal glands are normal. Gallbladder: Normal Kidneys: No masses are evident. No hydronephrosis is present. No cysts are present. Delayed images were obtained through the kidneys, which remain unremarkable. Aorta: Vascular calcification is within the aorta. Inferior vena cava: Normal. CT PELVIS: Patient's abscess with a drainage catheter. The urinary bladder is present this is smaller than comparison. Loops of bowel within the abdomen and pelvis are normal. There are loops of bowel which are incom pletely distended or lack oral contrast limiting their evaluation. Appendix: Not identified. No dilated tubular structure or inflammatory change is evident. Urinary bladder: Decompressed limiting evaluation. Genitourinary structures: Prostate contains calcification. Osseous structures: No suspicious lytic or sclerotic lesions. IMPRESSION: 1. Previous abscess above the urinary bladder is significantly diminished in size over the interval. Patchy catheter remains present. 2. Collection adjacent to the liver is somewhat diminished from the prior examination.
[2024-02-17 06:02] LABS: Glucose,Whole Blood 117 mg/dL (70-110)
--- NOTE | 2024-02-17 08:20 | PN ---
PROGRESS NOTE DATE OF SERVICE: 02/16/2024 SUBJECTIVE: This is a 53-year-old gentleman who was admitted with acute diverticulitis and perforation, had Preeti's procedure with descending colostomy. The patient is still having significant pain, and pain management considered. White count is also elevated around 16.39. The culture showed Enterococcus faecium, VRE, and Hamida albicans. The patient is on antibiotics. No chest pain. No palpitations. PAST MEDICAL HISTORY: Reviewed. REVIEW OF SYSTEMS: 14-point review of systems negative as mentioned. CURRENT MEDICATIONS: Reviewed include cefepime. Doses and rest of medications are noted. PHYSICAL EXAM: VITAL SIGNS: Pulse 70, blood pressure 149/82, respirations 17. HEENT: Conjunctivae normal. NECK: No jugular venous distention. CARDIOVASCULAR: S1, S2. RESPIRATIONS: Diminished at the bases. No rhonchi, no crackles. ABDOMEN: Soft, status post surgery. LEGS: No edema. No swelling. LABORATORY DATA: WBC 16.39. ASSESSMENT: 1. Perforated sigmoid diverticulitis with peritonitis, status post Preeti's procedure with descending colostomy with sepsis present on admission. Hamida and VRE from the cultures. 2. Acute renal failure. 3. Acute on chronic pain syndrome. 4. Elevated WBC, persistent. 5. Multiple complex medical issues. 6. Diabetes mellitus, type 2. RECOMMENDATIONS: I recommend to continue current medications and continue with the monitoring. Continue with current medications. Continue with Eraxis and cefepime. The most recent cultures on showed enterococci. The blood cultures are negative so far. We will continue to monitor WBC which is 16.39 today. I would continue to monitor. Further recommendations to follow. Abscess with drainage was done on 02/12/2024. Multiple labs are noted from the previous CAT scan. I would also recommend a repeat CT scan if the white count is not improving. Further recommendations to follow. MMODL / IJN: [id number] /
[2024-02-17 09:28] LABS: Basophils % (A) 0.7 %; Eosinophils # (A) 0.45 X 10*3/uL (0.04-0.35); Eosinophils % (A) 3.1 %; HCT 30.5 % (39.6-50.0); HGB 9.5 g/dL (13.0-17.0); Lymphocytes # (A) 1.33 X 10*3/uL (0.90-5.00); Lymphocytes % (A) 9.2 %; MCH 29.1 pg (27.0-32.0); MCHC 31.1 g/dL (32.0-37.0); MCV 93.3 FL (80.0-97.0); Mean Platelet Volume 9.9 FL (9.5-12.2); Monocytes # (A) 1.47 X 10*3/uL (0.20-1.00); Monocytes % (A) 10.1 %; NRBC Per 100 WBC 0 X 10*3/uL (0.00-0.01); Neutrophils # (A) 10.81 X 10*3/uL (1.80-7.70); Neutrophils % (A) 74.6 %; Platelet Count 552 X 10*3/uL (140-440); RBC 3.27 X 10*6/uL (4.40-5.60); RDW 14.6 % (11.5-14.5); WBC 14.49 X 10*3/uL (4.50-10.00)
[2024-02-17 10:48] LABS: Blood Urea Nitrogen 12.7 mg/dL (9.0-27.0); Carbon Dioxide 26.3 mmol/L (21.6-31.8); Chloride 98 mmol/L (96-109); Glucose 117 mg/dL (70-110); Potassium 4.8 mmol/L (3.5-5.5); Sodium 136 mmol/L (135-145)
[2024-02-17 10:49] LABS: ALT 8 U/L (10-49); AST 22 U/L (14-35); Albumin 2.9 g/dL (3.8-4.9); Albumin/Globulin Ratio 0.85 Ratio (1.60-3.17); Alkaline Phosphatase 127 U/L (41-126); Calcium 9.4 mg/dL (8.7-10.3); Globulin 3.4 g/dL (1.6-3.3); Total Bilirubin <0.2 mg/dL (0.3-1.2); Total Protein 6.3 g/dL (6.2-8.2)
--- NOTE | 2024-02-17 10:54 | P.PN ---
Subjective Progress Note Date: 02/17/24 Principal diagnosis: Huntley's procedure Patient is doing better today. Pain control is improved after anesthesia consult. Tolerating diet. No fevers. Objective - Vital Signs Vital signs: Vital Signs Temp 98.2 F 02/17/24 07:17 Pulse 76 02/17/24 07:17 Resp 18 02/17/24 07:17 BP 147/93 02/17/24 07:17 Pulse Ox 96 02/17/24 07:17 FiO2 Intake & Output 02/16/24 02/17/24 02/17/24 18:59 06:59 18:59 Output Total 1190 1540 270 Balance -1190 -1540 -270 Output: Drainage 110 70 Medial Abdomen 40 20 Right Abdomen 70 50 Urine 980 1540 Stool 100 200 Other: Voiding Method Urinal Urinal # Voids 4 - Exam Abdomen: Soft, nondistended, incision without active drainage, small amount of purulent fluid on the dressing again but much less than 2 days ago. Ostomy functioning. Drain in place. - Labs CBC & Chem 7: 02/17/24 06:19 02/17/24 06:19 Labs: Abnormal Lab Results - Last 24 Hours (Table) 02/16/24 02/16/24 02/17/24 Range/Units 15:16 16:54 05:59 WBC (4.50-10.00) X 10*3/uL RBC (4.40-5.60) X 10*6/uL Hgb (13.0-17.0) g/dL Hct (39.6-50.0) % MCHC (32.0-37.0) g/dL RDW (11.5-14.5) % Plt Count (140-440) X 10*3/uL Immature Gran # (0.00-0.04) X 10*3/uL Neutrophils # (1.80-7.70) X 10*3/uL Monocytes # (0.20-1.00) X 10*3/uL Eosinophils # (0.04-0.35) X 10*3/uL ESR 81 H (0-20) mm/Hr Creatinine (0.6-1.5) mg/dL BUN/Creatinine Ratio (12.00-20.00) Ratio Glucose (70-110) mg/dL POC Glucose (mg/dL) 116 H 117 H (70-110) mg/dL Total Bilirubin (0.3-1.2) mg/dL ALT (10-49) U/L Alkaline Phosphatase (41-126) U/L C-Reactive Protein (0.00-0.80) mg/dL Albumin (3.8-4.9) g/dL Globulin (1.6-3.3) g/dL Albumin/Globulin Ratio (1.60-3.17) Ratio 02/17/24 02/17/24 Range/Units 06:19 06:19 WBC 14.49 H (4.50-10.00) X 10*3/uL RBC 3.27 L (4.40-5.60) X 10*6/uL Hgb 9.5 L (13.0-17.0) g/dL Hct 30.5 L (39.6-50.0) % MCHC 31.1 L (32.0-37.0) g/dL RDW 14.6 H (11.5-14.5) % Plt Count 552 H (140-440) X 10*3/uL Immature Gran # 0.33 H (0.00-0.04) X 10*3/uL Neutrophils # 10.81 H (1.80-7.70) X 10*3/uL Monocytes # 1.47 H (0.20-1.00) X 10*3/uL Eosinophils # 0.45 H (0.04-0.35) X 10*3/uL ESR (0-20) mm/Hr Creatinine 0.5 L (0.6-1.5) mg/dL BUN/Creatinine Ratio 25.40 H (12.00-20.00) Ratio Glucose 117 H (70-110) mg/dL POC Glucose (mg/dL) (70-110) mg/dL Total Bilirubin <0.2 L (0.3-1.2) mg/dL ALT 8 L (10-49) U/L Alkaline Phosphatase 127 H (41-126) U/L C-Reactive Protein 4.00 H (0.00-0.80) mg/dL Albumin 2.9 L (3.8-4.9) g/dL Globulin 3.4 H (1.6-3.3) g/dL Albumin/Globulin Ratio 0.85 L (1.60-3.17) Ratio Assessment and Plan (1) Diverticulitis Narrative/Plan: Patient doing somewhat better. Continue antibiotics. Continue regular diet. Monitor incision site. Current Visit: Yes Status: Acute Code(s): K57.92 - DVTRCLI OF INTEST, PART UNSP, W/O PERF OR ABSCESS W/O BLEED SNOMED Code(s): 060990314
[2024-02-17 11:37] LABS: Glucose,Whole Blood 100 mg/dL (70-110)
[2024-02-17 16:38] LABS: Glucose,Whole Blood 103 mg/dL (70-110)
[2024-02-17 20:39] LABS: Glucose,Whole Blood 126 mg/dL (70-110)
--- NOTE | 2024-02-18 00:55 | PN ---
PROGRESS NOTE DATE OF SERVICE: 02/17/2024 SUBJECTIVE: This 53-year-old gentleman who was admitted with perforated sigmoid diverticulitis, multiple abscess, had repeat CAT scan yesterday with abscess around the urinary bladder has improved. Abscess on the liver is still pending at this time. He has had multiple organisms grown from the culture. The patient is on antibiotics and antifungals. The Enterobacter faecium is VRE. PAST MEDICAL HISTORY: Reviewed. REVIEW OF SYSTEMS: 14-point review of systems negative as mentioned. CURRENT MEDICATIONS: Reviewed include Eraxis. PHYSICAL EXAMINATION: VITAL SIGNS: Pulse is 76, blood pressure 147/90, and respirations 18. CHEST: Clear to auscultation. CARDIOVASCULAR: S1, S2. ABDOMEN: Soft. NERVOUS SYSTEM: Nonfocal. LABORATORY DATA: WBC 14.49, slight improvement from yesterday. ASSESSMENT: 1. Perforated sigmoid diverticulitis with peritonitis with multiple abscess, status post Preeti procedure and descending colostomy with sepsis present on admission with Hamida VRE from the cultures. 2. Status post CT-guided abscess drainage and pigtail catheter placement. 3. Acute renal failure. 4. Acute on chronic pain syndrome. 5. Elevated WBC, persistent. 6. Multiple complex medical issues. 7. Diabetes mellitus, type 2. RECOMMENDATIONS: Recommend to continue current management and continue symptomatic treatment. Otherwise continue the antibiotics. Pain management. The blood sugars seems to be well controlled at this time. I recommend repeat labs and DVT prophylaxis and further recommendations to follow. MMODL / IJN: [id number] /
[2024-02-18 05:56] LABS: Glucose,Whole Blood 108 mg/dL (70-110)
[2024-02-18 09:32] LABS: Basophils # (A) 0.09 X 10*3/uL (0.00-0.10); Basophils % (A) 0.5 %; Eosinophils % (A) 2.4 %; Lymphocytes # (A) 1.67 X 10*3/uL (0.90-5.00); Lymphocytes % (A) 9.9 %; MCH 30.6 pg (27.0-32.0); MCHC 31.3 g/dL (32.0-37.0); MCV 97.9 FL (80.0-97.0); Mean Platelet Volume 10.3 FL (9.5-12.2); Monocytes # (A) 1.76 X 10*3/uL (0.20-1.00); Monocytes % (A) 10.5 %; NRBC Per 100 WBC 0 X 10*3/uL (0.00-0.01); Neutrophils # (A) 12.55 X 10*3/uL (1.80-7.70); Neutrophils % (A) 74.7 %; Platelet Count 605 X 10*3/uL (140-440); RBC 3.27 X 10*6/uL (4.40-5.60); RDW 14.8 % (11.5-14.5); WBC 16.81 X 10*3/uL (4.50-10.00)
[2024-02-18 09:35] LABS: ALT 8 U/L (10-49); AST 24 U/L (14-35); Albumin 3.1 g/dL (3.8-4.9); Albumin/Globulin Ratio 0.84 Ratio (1.60-3.17); Alkaline Phosphatase 129 U/L (41-126); Blood Urea Nitrogen 14.4 mg/dL (9.0-27.0); Calcium 9.4 mg/dL (8.7-10.3); Carbon Dioxide 28.4 mmol/L (21.6-31.8); Chloride 97 mmol/L (96-109); Globulin 3.7 g/dL (1.6-3.3); Glucose 96 mg/dL (70-110); Potassium 4.9 mmol/L (3.5-5.5); Sodium 136 mmol/L (135-145); Total Bilirubin <0.2 mg/dL (0.3-1.2); Total Protein 6.8 g/dL (6.2-8.2)
--- NOTE | 2024-02-18 09:43 | P.PN ---
Subjective Progress Note Date: 02/18/24 Principal diagnosis: Huntley's procedure Patient says he feels about the same. Abdominal pain is well-controlled. White blood cell count 16 today. Tolerating diet. Good bowel function. Objective - Vital Signs Vital signs: Vital Signs Temp 97.9 F 02/18/24 08:03 Pulse 81 02/18/24 08:03 Resp 18 02/18/24 08:03 BP 137/88 02/18/24 08:03 Pulse Ox 90 L 02/18/24 08:03 FiO2 Intake & Output 02/17/24 02/18/24 02/18/24 18:59 06:59 18:59 Output Total 770 1375 Balance -770 -1375 Output: Drainage 70 Medial Abdomen 20 Right Abdomen 50 Urine 500 1375 Stool 200 Other: Voiding Method Urinal # Bowel Movements 1 - Exam Abdomen: Soft, nondistended, incision with increased drainage above the umbilical region, both drains in place, ostomy functioning - Labs CBC & Chem 7: 02/18/24 05:09 02/18/24 05:09 Labs: Abnormal Lab Results - Last 24 Hours (Table) 02/17/24 02/17/24 02/18/24 Range/Units 06:19 20:34 05:09 WBC 16.81 H (4.50-10.00) X 10*3/uL RBC 3.27 L (4.40-5.60) X 10*6/uL Hgb 10.0 L (13.0-17.0) g/dL Hct 32.0 L (39.6-50.0) % MCV 97.9 H (80.0-97.0) FL MCHC 31.3 L (32.0-37.0) g/dL RDW 14.8 H (11.5-14.5) % Plt Count 605 H (140-440) X 10*3/uL Immature Gran # 0.34 H (0.00-0.04) X 10*3/uL Neutrophils # 12.55 H (1.80-7.70) X 10*3/uL Monocytes # 1.76 H (0.20-1.00) X 10*3/uL Eosinophils # 0.40 H (0.04-0.35) X 10*3/uL Creatinine 0.5 L (0.6-1.5) mg/dL BUN/Creatinine Ratio 25.40 H (12.00-20.00) Ratio Glucose 117 H (70-110) mg/dL POC Glucose (mg/dL) 126 H (70-110) mg/dL Total Bilirubin <0.2 L (0.3-1.2) mg/dL ALT 8 L (10-49) U/L Alkaline Phosphatase 127 H (41-126) U/L C-Reactive Protein 4.00 H (0.00-0.80) mg/dL Albumin 2.9 L (3.8-4.9) g/dL Globulin 3.4 H (1.6-3.3) g/dL Albumin/Globulin Ratio 0.85 L (1.60-3.17) Ratio 02/18/24 Range/Units 05:09 WBC (4.50-10.00) X 10*3/uL RBC (4.40-5.60) X 10*6/uL Hgb (13.0-17.0) g/dL Hct (39.6-50.0) % MCV (80.0-97.0) FL MCHC (32.0-37.0) g/dL RDW (11.5-14.5) % Plt Count (140-440) X 10*3/uL Immature Gran # (0.00-0.04) X 10*3/uL Neutrophils # (1.80-7.70) X 10*3/uL Monocytes # (0.20-1.00) X 10*3/uL Eosinophils # (0.04-0.35) X 10*3/uL Creatinine (0.6-1.5) mg/dL BUN/Creatinine Ratio 24.00 H (12.00-20.00) Ratio Glucose (70-110) mg/dL POC Glucose (mg/dL) (70-110) mg/dL Total Bilirubin <0.2 L (0.3-1.2) mg/dL ALT 8 L (10-49) U/L Alkaline Phosphatase 129 H (41-126) U/L C-Reactive Protein (0.00-0.80) mg/dL Albumin 3.1 L (3.8-4.9) g/dL Globulin 3.7 H (1.6-3.3) g/dL Albumin/Globulin Ratio 0.84 L (1.60-3.17) Ratio Microbiology - Last 24 Hours (Table) 02/12/24 14:30 Anaerobic Culture - Final Abdominal Fluid 02/12/24 14:30 Anaerobic Culture - Final Abdominal Fluid Assessment and Plan (1) Diverticulitis Narrative/Plan: Patient seems stable clinically. White blood cell count slightly increased. Today I am able to visualize some purulent drainage from the incision superior to the umbilical region. Approximately 6 digna removed altogether. 2 separate sites were probed. Only the area superior to the umbilical region had any drainage. This was packed with plain cotton gauze. Switch to Aquacel silver dressings starting tomorrow. Continue antibiotics. Current Visit: Yes Status: Acute Code(s): K57.92 - DVTRCLI OF INTEST, PART UNSP, W/O PERF OR ABSCESS W/O BLEED SNOMED Code(s): 730772018
[2024-02-18 12:05] LABS: Glucose,Whole Blood 126 mg/dL (70-110)
[2024-02-18 16:39] LABS: Glucose,Whole Blood 138 mg/dL (70-110)
--- NOTE | 2024-02-18 17:58 | P.PN ---
Subjective Progress Note Date: 02/18/24 53-year-old gentleman past medical history significant for chronic back pain, history of hypertension, history of diabetes mellitus presented to the emergency department with complaints of acute onset of abdominal pain on top of chronic back pain. Patient states symptom onset was 24 hours prior to presentation. Patient said he has a progressive decrease in appetite and had vomited a few times before coming in. Patient said he had 4 small stools however abdominal pain persisted. Patient was sent as a transfer from an outside hospital due to concern for diverticulitis with perforation. General surgery team was contacted, patient was made n.p.o. consultation obtained from general surgery and infectious disease 02/02/2024 Patient is seen and evaluated in room at bedside; no specific complaints reported Vital signs are reviewed and temperature 98.4, pulse 82, respiration 18 and blood pressure 165/78 with O2 saturation 96% Labs revealed WBC of 22.7, improved from 23.7 yesterday, hemoglobin 11.4, platelet count of 238, sodium 138, potassium 4.1, BUNs/creatinine 18/0.76 and blood glucose of 113 -patient presented hospital with sepsis in this patient did have fever tachycardia source is acute ruptured appendicitis and peritonitis and will need to cover for enteric gram-negative to be the likely pathogen less likely gram- positive kike -penicillin allergy that will limit the number of antibiotics safe to use -patient repeat CT abdominal pelvis did shows diverticulitis with multiple foci of air and contained leak -patient white count slightly down today will monitor closely; continue with cefepime and Flagyl we will repeat CBC with a.m. lab 02/03/2024 Patient is seen and evaluated resting comfortably in bed; continues to report uncontrolled pain; reports his Dilaudid has been changed; ostomy not producing at this time Vital signs are reviewed and remained stable Lab review shows improved white blood count 16.3 hemoglobin of 9.6 and platelet count of 268, sodium 136, potassium 3.8, BUNs/creatinine of 12/0.5, phosphorus is low at 1.9 magnesium stable at 1.8 -we will supplement electrolytes and continue to monitor e will supplement electrolytes and continue to monitor --Surgery recommending to advance diet as tolerated 02/04/2024 Patient awake alert He has some abdominal pain tenderness, expected postoperatively, wound closed with wound VAC in place, left lower colostomy bag with small liquid brown stool. No vomiting, poor appetite He is on Dilaudid drip 0.2 and normal saline 50 mL/h 02/05/2024 Patient awake alert He is in distress due to abdominal pain, wound VAC in place He is still on TPN Eraxis added to IV Flagyl and cefepime. Midline is requested Plan for ECF on 02/06/2024 Patient abdominal pain is controlled today. He can tolerate some liquid diet with no vomiting He emptied his colostomy bag yesterday. This morning it has no or minimal discharge He remains on TPN Plan for midline Patient will benefit from ECF upon discharge. Currently on broad-spectrum antibiotic with cefepime, IV Flagyl, Eraxis and daptomycin, ID team on the case 02/07/2024 Patient continued to improve slowly and gradually He tolerates oral diet, still getting TPN Abdominal pain is better 3/10 This morning he emptied his colostomy bag No chest pain or dyspnea. He remains on daptomycin, cefepime Flagyl and antifungal switched to an indulfaungin 02/08/2024 Patient abdominal pain controlled Patient is getting TPN, with plan to taper it off No new complaints Patient can be transferred out of the [facility] 02/09/2024 Patient also with significant abdominal pain, Is complaining from more severe back pain today requiring extra dose of Dilaudid Patient is stable 02/10/2024 Patient complains much of his back pain asking for better pain control stating that he is taking IV Dilaudid and is not more satisfied. Patient on IV Dilaudid 1 mg every 6 hours we lowered to 0.5 mg and increase frequency of oxycodone from every 6 hours up to every 4 hours. Patient remains on Eraxis, daptomycin and IV Flagyl and cefepime 02/11/2024 Patient is seen and evaluated in follow-up today with general surgery and infectious disease following. Patient is maintained on antibiotics and does have a PICC line. Surgical digna of the abdomen including sites appear well- approximated although patient continues to have some abdominal distention. Patient is having bowel movements although continued abdominal pain. Plan is for repeat CT abdomen today. Will await report and appreciate input and recommendations from surgery. Case management/social work following as patient will be needing rehab on discharge for continued strength and mobility as patient has had significant clinical decline and extreme weakness. Patient has been encouraged to use incentive spirometer at least 10 times every hour while awake. at the bedside questions and concerns that were answered. 02/12/2024 Patient is seen in follow-up today underwent CT abdomen yesterday showing multiple abscesses and progression and IR has been consulted for drainage tube placement. Patient is continued on antibiotics with infectious disease following. White count mildly improved from yesterday and we will follow-up on cultures from the drainage. Per nursing staff patient is requesting pain medication [id number] and will adjust medications accordingly. Patient has been instructed to increase activity as tolerated and recommend physical therapy daily. Patient will need ECF on discharge. 02/13/2024 Patient is seen in follow-up today with multiple medical consultations foll owing. General surgery following and interventional radiology had evaluated the patient status post drainage tubes as patient was noted to have further abscesses on repeat CT imaging. Patient continues on antibiotics with infectious disease following and awaiting finalized cultures. Plan is for R egency on discharge for continued strength and mobility as patient reports is unable to get up and walk and needs assistance. Patient with multiple antibiotics and wound care would make it extremely unsafe and difficult to manage and high risk for readmission if went home. Patient is adamant he is going home on discharge although family feels he needs rehab. Patient is extremely agitated today regarding his pain medication regimen as he reports he has significant 10/10 pain with a history of chronic pain and his home medications are not working. Patient reports his pain is in his back and his constant headaches that he reports has daily due to his previous past medical history of a brain hemorrhage. Per surgery Dr. Christie, patient is to continue on current regimen as she has ordered. Awaiting finalized cultures to determine appropriate discharge antibiotics. Patient does have a PICC line. 02/14/2024 Patient being seen this morning with multiple medical consultations following. Patient does have a PICC line and will continue on antibiotic therapy outpatient. Patient will require at least 10 days of antibiotics per ID recommendations. Patient reported pain was uncontrolled and continued on IV Dilaudid and have consulted pain management being started on fentanyl patch. Recommend and discussed with patient and family regarding IV narcotic use limitation. General surgery following and has cleared the patient for discharge and will be monitored overnight as patient did have a low-grade temp last night. White count is trending down and recommend close outpatient follow-up labs. Patient does have a scheduled appointment with general surgery outpatient. Patient to follow-up with orthopedics once medically stable from current clinical condition. Plan is for [facility] and [facility] and currently awaiting insurance authorization. 02/15/2024 Patient is seen and evaluated in follow-up today initially was scheduled for discharge to ECF although cultures showing multiple resistance and patient is maintained on Paxil making it difficult for antibiotic therapy recommendations and patient would be unable to take Zyvox because of the Paxil. Patient will continue on IV antibiotics and does have a PICC line with infectious disease following recommending to keep the patient hospitalized and monitor and make adjustments accordingly. Patient white count remains elevated at 15 and patient is afebrile. Patient continues to report significant pain which is secondary to his chronic back pain. Case management is following and has made [facility] aware. Patient has received insurance authorization which will need to be adjusted once patient is medically stable for discharge. Due to the holiday weekend patient will likely not discharge until early next week. 02/18/2024 Patient is seen in follow-up today with general surgery following performed abdominal dressing changes including removing some of the digna with some minimal drainage noted. Patient is continued on antibiotics and antifungal medications with infectious disease following. Pain patient reports is uncontrolled although patient has been noted to be sleeping on exam. Per nursing staff patient continues to request IV pain medications [id number]. Patient reports fentanyl patch is not helping at all. Pain management is following we will discuss further pain regimen. White count remains elevated persistent although patient remains afebrile. Encouraged incentive spirometer use and getting up out of the bed more frequently. Patient reports he has difficulty getting out of the bed due to his severe chronic back pain. Ostomy is functioning and patient is tolerating diet. Continue bowel regimen Review of systems: Constitutional: No reports of fatigue, fever, or chills Cardiovascular: No reports of chest pain or palpitations Respiratory: No reports of shortness of breath or cough GI: reports of intermittent nausea, no vomiting, reports having bowel movements in the ostomy, liquid, reports gas, reports current abdominal pain is controlled : No reports of dysuria or retention Neurovascular: reports of generalized weakness and continued severe chronic back pain that is continuous and fentanyl patch is not helping Physical exam: GENERAL: The patient is alert and oriented x3, obese. Well developed, well nourished. HEENT: Pupils are round and equally reacting to light. EOMI. No scleral icterus. No conjunctival pallor. Normocephalic, atraumatic. No pharyngeal erythema. No thyromegaly. CARDIOVASCULAR: S1 and S2 muffled PULMONARY: Diminished breath sounds bilaterally otherwise chest is clear to auscultation, no wheezing , no crackles. ABDOMEN: Soft, tender on palpation, somewhat distended, normoactive bowel sounds. No palpable organomegaly. Left lower quadrant colostomy in place, vertical wound with multiple digna noted appears well-approximated, surgical dressing is dry and intact MUSCULOSKELETAL: No joint swelling or deformity. EXTREMITIES: No cyanosis, clubbing, or pedal edema. Generalized edema noted of lower extremities NEUROLOGICAL: Gross neurological examination did not reveal any focal deficits. Diffusely weak SKIN: No rashes. no petechiae. Pale Assessment: Acute diverticulitis with perforation and localized abscess s/p surgical intervention exploratory laporotomy, sigmoid resection and descending colostomy and drainage of intra-abdominal abscess on 01/30 with progression noted on repeat CT imaging on 02/11/2024 for new abscess formation Status post abscess drainage with gauze quite scary blood drainage tube placement with interventional radiology Sepsis secondary to intra-abdominal infection Acute kidney injury prerenal due to hypotension and dehydration. 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 Anxiety maintained on xanax scheduled Obesity with a BMI of 37.8 GI prophylaxis DVT prophylaxis Full code Plan: Continue with antibiotics with infectious disease following. Patient does have a PICC line and will require IV antibiotics outpatient. Patient's cultures with multidrug resistance making it difficult to adjust medications due to patient being on Paxil as we have limited options due to the resistance. Adjustments being made to antibiotic therapy and recommend holding the patient at this time to adjust medications and monitor. Patient to be on at least 10 days IV antibiotic therapy on discharge Continue local wound care per general surgery and infectious disease General surgery following and patient continues to have some abdominal discomfort and distention with repeat CT abdomen showing multiple abscesses and fluid collection. IR has placed drainage tubes. Patient has been cleared by surgery for outpatient follow-up Patient continues to report uncontrolled pain and pain management following and has started the patient on a fentanyl patch. Patient reports the patch is not helping. Recommend limiting IV narcotic use as per nursing staff patient continues to request IV Dilaudid [id number]. Recommend PT/OT therapy daily. Case management following as patient will need ECF on discharge. Patient has received authorization for [facility] Encouraged oral intake with diet recommendations per surgery Continue incentive spirometer use at least 10 times every hour while awake due to multiple complex medical issues, prognosis is guarded Likely discharge planning early next week given the hol weekend. Insurance authorization will need to be resubmitted per [facility] liaison once patient is medically stable The impression and plan of care has been dictated by An Liu, Nurse Practitioner as directed. Dr. Tawanda MD I have performed a history and examination and MDM of this patient, discussed the same with the dictator, and agree with the dictator's assessment and plan as written ,documented as a scribe. Based on total visit time, I have performed more than 50% of the visit. Overall Objective - Vital Signs Vital signs: Vital Signs Temp 97.9 F 02/18/24 14:25 Pulse 88 02/18/24 14:25 Resp 18 02/18/24 14:25 BP 129/75 02/18/24 14:25 Pulse Ox 90 L 02/18/24 14:25 FiO2 Intake & Output 02/17/24 02/18/24 02/18/24 18:59 06:59 18:59 Output Total 770 1375 825 Balance -770 -1375 -825 Output: Drainage 70 Medial Abdomen 20 Right Abdomen 50 Urine 500 1375 525 Stool 200 Urine/Stool Mix 300 Other: Voiding Method Urinal # Bowel Movements 1 - Labs CBC & Chem 7: 02/18/24 05:09 02/18/24 05:09 Labs: Abnormal Lab Results - Last 24 Hours (Table) 02/17/24 02/18/24 02/18/24 Range/Units 20:34 05:09 05:09 WBC 16.81 H (4.50-10.00) X 10*3/uL RBC 3.27 L (4.40-5.60) X 10*6/uL Hgb 10.0 L (13.0-17.0) g/dL Hct 32.0 L (39.6-50.0) % MCV 97.9 H (80.0-97.0) FL MCHC 31.3 L (32.0-37.0) g/dL RDW 14.8 H (11.5-14.5) % Plt Count 605 H (140-440) X 10*3/uL Immature Gran # 0.34 H (0.00-0.04) X 10*3/uL Neutrophils # 12.55 H (1.80-7.70) X 10*3/uL Monocytes # 1.76 H (0.20-1.00) X 10*3/uL Eosinophils # 0.40 H (0.04-0.35) X 10*3/uL BUN/Creatinine Ratio 24.00 H (12.00-20.00) Ratio POC Glucose (mg/dL) 126 H (70-110) mg/dL Total Bilirubin <0.2 L (0.3-1.2) mg/dL ALT 8 L (10-49) U/L Alkaline Phosphatase 129 H (41-126) U/L Albumin 3.1 L (3.8-4.9) g/dL Globulin 3.7 H (1.6-3.3) g/dL Albumin/Globulin Ratio 0.84 L (1.60-3.17) Ratio 02/18/24 02/18/24 Range/Units 12:03 16:37 WBC (4.50-10.00) X 10*3/uL RBC (4.40-5.60) X 10*6/uL Hgb (13.0-17.0) g/dL Hct (39.6-50.0) % MCV (80.0-97.0) FL MCHC (32.0-37.0) g/dL RDW (11.5-14.5) % Plt Count (140-440) X 10*3/uL Immature Gran # (0.00-0.04) X 10*3/uL Neutrophils # (1.80-7.70) X 10*3/uL Monocytes # (0.20-1.00) X 10*3/uL Eosinophils # (0.04-0.35) X 10*3/uL BUN/Creatinine Ratio (12.00-20.00) Ratio POC Glucose (mg/dL) 126 H 138 H (70-110) mg/dL Total Bilirubin (0.3-1.2) mg/dL ALT (10-49) U/L Alkaline Phosphatase (41-126) U/L Albumin (3.8-4.9) g/dL Globulin (1.6-3.3) g/dL Albumin/Globulin Ratio (1.60-3.17) Ratio
[2024-02-18 20:29] LABS: Glucose,Whole Blood 150 mg/dL (70-110)
[2024-02-19 06:27] LABS: Glucose,Whole Blood 105 mg/dL (70-110)
--- NOTE | 2024-02-19 07:16 | P.PN ---
Subjective Progress Note Date: 02/17/24 Principal diagnosis: Reason for follow-up is perforated diverticulitis with sepsis on admission Patient is a 53-year-old male with past medical history significant for diabetes mellitus hypertension anxiety bipolar depression and brain surgery patient presented to hospital with abdominal pain and this patient has been diagnosed with the ruptured diverticulitis and sepsis for the patient was transferred to [facility]. Patient is status post Exploratory laparotomy with sigmoid resection for perforated mid sigmoid colon, Descending colostomy and drainage of 1600 open abdominal abscess procedure completed on 01/31/2024. On today's evaluation that is 02/17/2024, the patient continues to be afebrile, the patient is on room air and breathing comfortably, the Pt denies having any chest pain or cough, the patient denies nausea or vomiting abdominal pain is cu rrently controlled still have output in the drainage catheters Patient white count is down to 14.49, creatinine 0.5, patient did have a CT abdominal pelvis completed last night mention overall decrease in the intra- abdominal abscess Objective - Vital Signs Vital signs: Vital Signs Temp 98.2 F 02/17/24 07:17 Pulse 76 02/17/24 07:17 Resp 18 02/17/24 07:17 BP 147/93 02/17/24 07:17 Pulse Ox 96 02/17/24 07:17 FiO2 Intake & Output 02/16/24 02/17/24 02/17/24 18:59 06:59 18:59 Output Total 1190 1540 270 Balance -1190 -1540 -270 Output: Drainage 110 70 Medial Abdomen 40 20 Right Abdomen 70 50 Urine 980 1540 Stool 100 200 Other: Voiding Method Urinal # Voids 4 - Exam GENERAL DESCRIPTION: Middle-age male lying in bed in no distress RESPIRATORY SYSTEM: Unlabored breathing , decreased breath sounds at bases HEART: S1 S2 regular rate and rhythm , ABDOMEN: Soft , mild tenderness EXTREMITIES: No edema feet - Labs CBC & Chem 7: 02/18/24 05:09 02/18/24 05:09 Labs: Abnormal Lab Results - Last 24 Hours (Table) 02/16/24 02/16/24 02/16/24 Range/Units 06:11 06:11 15:16 WBC 16.39 H (4.50-10.00) X 10*3/uL RBC 3.16 L (4.40-5.60) X 10*6/uL Hgb 9.4 L (13.0-17.0) g/dL Hct 29.7 L (39.6-50.0) % MCHC 31.6 L (32.0-37.0) g/dL Plt Count 590 H (140-440) X 10*3/uL Immature Gran # 0.36 H (0.00-0.04) X 10*3/uL Neutrophils # 12.25 H (1.80-7.70) X 10*3/uL Monocytes # 1.55 H (0.20-1.00) X 10*3/uL ESR 81 H (0-20) mm/Hr POC Glucose (mg/dL) (70-110) mg/dL Calcium 8.5 L (8.7-10.3) mg/dL 02/16/24 02/17/24 Range/Units 16:54 05:59 WBC (4.50-10.00) X 10*3/uL RBC (4.40-5.60) X 10*6/uL Hgb (13.0-17.0) g/dL Hct (39.6-50.0) % MCHC (32.0-37.0) g/dL Plt Count (140-440) X 10*3/uL Immature Gran # (0.00-0.04) X 10*3/uL Neutrophils # (1.80-7.70) X 10*3/uL Monocytes # (0.20-1.00) X 10*3/uL ESR (0-20) mm/Hr POC Glucose (mg/dL) 116 H 117 H (70-110) mg/dL Calcium (8.7-10.3) mg/dL Assessment and Plan (1) Penicillin allergy Current Visit: Yes Status: Acute Code(s): Z88.0 - ALLERGY STATUS TO PENICILLIN SNOMED Code(s): 84135348 (2) Perforation of sigmoid colon due to diverticulitis Current Visit: Yes Status: Acute Code(s): K57.20 - DVTRCLI OF LG INT W PERFORATION AND ABSCESS W/O BLEEDING SNOMED Code(s): 9525413378527641 (3) Peritonitis Current Visit: Yes Status: Acute Code(s): K65.9 - PERITONITIS, UNSPECIFIED SNOMED Code(s): 60897525 Plan: 1patient presented hospital with sepsis in this patient did have fever tachycardia source is acute ruptured appendicitis and peritonitis and will need to cover for enteric gram-negative to be the likely pathogen less likely gram- positive kike 2-penicillin allergy that will limit the number of antibiotics safe to use 3-patient repeat CT abdominal pelvis did shows diverticulitis with multiple foci of air and contained leak,patient is status post sigmoid colectomy descending colostomy and drainage of abdominal abscess cultures currently growing VRE, Hamida albicans and none albicans Hamida, patient did have a follow-up CT on 02/16/2024 mention overall decrease in the sizes of the intra- abdominal collection/abscesses 4-patient is afebrile white count is trending down, patient to continue with Zyvox along with with the Eraxis cefepime and Flagyl and monitor clinical course closely Dictation was produced using [employer] dictation software. please excuse any grammatical, word or spelling errors. Time with Patient: Less than 30
--- NOTE | 2024-02-19 07:17 | P.PN ---
Subjective Progress Note Date: 02/18/24 Principal diagnosis: Reason for follow-up is perforated diverticulitis with sepsis on admission Patient is a 53-year-old male with past medical history significant for diabetes mellitus hypertension anxiety bipolar depression and brain surgery patient presented to hospital with abdominal pain and this patient has been diagnosed with the ruptured diverticulitis and sepsis for the patient was transferred to [facility]. Patient is status post Exploratory laparotomy with sigmoid resection for perforated mid sigmoid colon, Descending colostomy and drainage of 1600 open abdominal abscess procedure completed on 01/31/2024. On today's evaluation that is 02/18/2024, Patient is afebrile patient is currently on room air and denies having any shortness of breath, the patient denies any chest pain or cough, the patient denies any nausea vomiting abdominal pain has decreased in intensity still complaining of back pain and adjustment in his pain medication. Patient white count slightly up to 16.81 creatinine 0.6 Objective - Vital Signs Vital signs: Vital Signs Temp 97.9 F 02/18/24 08:03 Pulse 81 02/18/24 08:03 Resp 18 02/18/24 08:03 BP 137/88 02/18/24 08:03 Pulse Ox 90 L 02/18/24 08:03 FiO2 Intake & Output 02/17/24 02/18/24 02/18/24 18:59 06:59 18:59 Output Total 770 1375 500 Balance -770 -1375 -500 Output: Drainage 70 Medial Abdomen 20 Right Abdomen 50 Urine 500 1375 200 Stool 200 Urine/Stool Mix 300 Other: Voiding Method Urinal # Bowel Movements 1 - Exam GENERAL DESCRIPTION: Middle-age male lying in bed in no distress RESPIRATORY SYSTEM: Unlabored breathing , decreased breath sounds at bases HEART: S1 S2 regular rate and rhythm , ABDOMEN: Soft , mild tenderness EXTREMITIES: No edema feet - Labs CBC & Chem 7: 02/18/24 05:09 02/18/24 05:09 Labs: Abnormal Lab Results - Last 24 Hours (Table) 02/17/24 02/18/24 02/18/24 Range/Units 20:34 05:09 05:09 WBC 16.81 H (4.50-10.00) X 10*3/uL RBC 3.27 L (4.40-5.60) X 10*6/uL Hgb 10.0 L (13.0-17.0) g/dL Hct 32.0 L (39.6-50.0) % MCV 97.9 H (80.0-97.0) FL MCHC 31.3 L (32.0-37.0) g/dL RDW 14.8 H (11.5-14.5) % Plt Count 605 H (140-440) X 10*3/uL Immature Gran # 0.34 H (0.00-0.04) X 10*3/uL Neutrophils # 12.55 H (1.80-7.70) X 10*3/uL Monocytes # 1.76 H (0.20-1.00) X 10*3/uL Eosinophils # 0.40 H (0.04-0.35) X 10*3/uL BUN/Creatinine Ratio 24.00 H (12.00-20.00) Ratio POC Glucose (mg/dL) 126 H (70-110) mg/dL Total Bilirubin <0.2 L (0.3-1.2) mg/dL ALT 8 L (10-49) U/L Alkaline Phosphatase 129 H (41-126) U/L Albumin 3.1 L (3.8-4.9) g/dL Globulin 3.7 H (1.6-3.3) g/dL Albumin/Globulin Ratio 0.84 L (1.60-3.17) Ratio //24 Range/Units 12:03 WBC (4.50-10.00) X 10*3/uL RBC (4.40-5.60) X 10*6/uL Hgb (13.0-17.0) g/dL Hct (39.6-50.0) % MCV (80.0-97.0) FL MCHC (32.0-37.0) g/dL RDW (11.5-14.5) % Plt Count (140-440) X 10*3/uL Immature Gran # (0.00-0.04) X 10*3/uL Neutrophils # (1.80-7.70) X 10*3/uL Monocytes # (0.20-1.00) X 10*3/uL Eosinophils # (0.04-0.35) X 10*3/uL BUN/Creatinine Ratio (12.00-20.00) Ratio POC Glucose (mg/dL) 126 H (70-110) mg/dL Total Bilirubin (0.3-1.2) mg/dL ALT (10-49) U/L Alkaline Phosphatase (41-126) U/L Albumin (3.8-4.9) g/dL Globulin (1.6-3.3) g/dL Albumin/Globulin Ratio (1.60-3.17) Ratio Microbiology - Last 24 Hours (Table) 02/12/24 14:30 Anaerobic Culture - Final Abdominal Fluid 02/12/24 14:30 Anaerobic Culture - Final Abdominal Fluid Assessment and Plan (1) Penicillin allergy Current Visit: Yes Status: Acute Code(s): Z88.0 - ALLERGY STATUS TO PENICILLIN SNOMED Code(s): 52741856 (2) Perforation of sigmoid colon due to diverticulitis Current Visit: Yes Status: Acute Code(s): K57.20 - DVTRCLI OF LG INT W PERFORATION AND ABSCESS W/O BLEEDING SNOMED Code(s): 5268813364377594 (3) Peritonitis Current Visit: Yes Status: Acute Code(s): K65.9 - PERITONITIS, UNSPECIFIED SNOMED Code(s): 79841294 Plan: 1patient presented hospital with sepsis in this patient did have fever tachyca rdia source is acute ruptured appendicitis and peritonitis and will need to cover for enteric gram-negative to be the likely pathogen less likely gram- positive kike 2-penicillin allergy that will limit the number of antibiotics safe to use 3-patient repeat CT abdominal pelvis did shows diverticulitis with multiple foci of air and contained leak,patient is status post sigmoid colectomy descending colostomy and drainage of abdominal abscess cultures currently growing VRE, Hamida albicans and none albicans Hamida, patient did have a follow-up CT on 02/16/2024 mention overall decrease in the sizes of the intra- abdominal collection/abscesses 4-patient is afebrile white count is slightly up that we will monitor closely is a patient just had a CT which showed decrease in the size of the abscesses, patient has tolerated Zyvox to continue along with the Eraxis cefepime and Flagyl and monitor clinical course closely Dictation was produced using [employer] dictation software. please excuse any gra mmatical, word or spelling errors. Time with Patient: Less than 30
[2024-02-19] MEDS: metroNIDAZOLE 500 MG TAB PO SCH (07:55)
[2024-02-19 08:42] LABS: Basophils # (A) 0.09 X 10*3/uL (0.00-0.10); Basophils % (A) 0.6 %; Eosinophils # (A) 0.36 X 10*3/uL (0.04-0.35); Eosinophils % (A) 2.5 %; HCT 30.3 % (39.6-50.0); HGB 9.5 g/dL (13.0-17.0); Lymphocytes # (A) 1.54 X 10*3/uL (0.90-5.00); Lymphocytes % (A) 10.6 %; MCH 29.5 pg (27.0-32.0); MCHC 31.4 g/dL (32.0-37.0); MCV 94.1 FL (80.0-97.0); Monocytes # (A) 1.54 X 10*3/uL (0.20-1.00); Monocytes % (A) 10.6 %; NRBC Per 100 WBC 0 X 10*3/uL (0.00-0.01); Neutrophils # (A) 10.77 X 10*3/uL (1.80-7.70); Neutrophils % (A) 73.8 %; Platelet Count 564 X 10*3/uL (140-440); RBC 3.22 X 10*6/uL (4.40-5.60); RDW 14.7 % (11.5-14.5); WBC 14.58 X 10*3/uL (4.50-10.00)
[2024-02-19 08:56] LABS: BUN/Creat Ratio 28.17 Ratio (12.00-20.00); Blood Urea Nitrogen 16.9 mg/dL (9.0-27.0); Calcium 9.1 mg/dL (8.7-10.3); Carbon Dioxide 28.9 mmol/L (21.6-31.8); Chloride 95 mmol/L (96-109); Glucose 93 mg/dL (70-110); Potassium 4.9 mmol/L (3.5-5.5); Sodium 136 mmol/L (135-145)
[2024-02-19 11:43] LABS: Glucose,Whole Blood 160 mg/dL (70-110)
--- NOTE | 2024-02-19 15:09 | P.PN ---
Subjective Progress Note Date: 02/19/24 CHIEF COMPLAINT: Diverticulitis HISTORY OF PRESENT ILLNESS: Patient is status post exploratory with sigmoid resection for perforated mid sigmoid colon and descending colostomy on 01/31/24. Patient reports his pain is controlled. Ostomy is functioning. He is tolerating diet. Afebrile. Mildly tachycardic this afternoon. WBC 16.8 down to 14.5 PHYSICAL EXAM: VITAL SIGNS: Reviewed GENERAL: Well-developed in no acute distress. ABDOMEN: Soft. Nondistended. Ostomy functioning. Midline incision site was packing above the umbilicus with purulent drainage noted. Drains in place with serous purulent drainage ASSESSMENT: 1. Perforated complicated sigmoid diverticulitis with pelvic abscess. Culture with VRE and Hamida 2. Sepsis present on admission due to perforated diverticulitis 3. abdominal abscesses status post drain placement x 2 drains PLAN: -Continue antibiotics Per ID service -Continue local wound care. Change packing to Aquacel silver -Continue to monitor drain output -Continue pain management -DVT prophylaxis subcu heparin and GI prophylaxis Protonix Physician Document Examiner note has been reviewed by physician. Signing provider agrees with the documented findings, assessment, and plan of care. I have personally seen and examined the patient, reviewed the [employer] SET UP OPERATOR /PAs history, exam and MDM and agree with the assessment and plan as written. Based on total visit time, I have performed more than 50% of the visit. As above: Patient without new complaints. Still with some purulent drainage from the open wound above the umbilical region. Tolerating diet. No fevers. White blood cell count improved. Continue local wound care. Possible discharge tomorrow per infectious disease. Objective - Vital Signs Vital signs: Vital Signs Temp 98.5 F 02/19/24 14:00 Pulse 113 H 02/19/24 14:00 Resp 18 02/19/24 14:00 BP 128/80 02/19/24 14:00 Pulse Ox 92 L 02/19/24 14:00 FiO2 Intake & Output 02/18/24 02/19/24 02/19/24 18:59 06:59 18:59 Output Total 406 500 935 Balance -975 -500 -935 Output: Drainage 150 Medial Abdomen 20 Right Abdomen 130 Urine 525 500 860 Stool 75 Urine/Stool Mix 300 Other: Voiding Method Urinal Urinal # Bowel Movements 150 - Labs CBC & Chem 7: 02/19/24 05:07 02/19/24 05:07 Labs: Abnormal Lab Results - Last 24 Hours (Table) 02/18/24 02/18/24 02/19/24 Range/Units 16:37 20:27 05:07 WBC 14.58 H (4.50-10.00) X 10*3/uL RBC 3.22 L (4.40-5.60) X 10*6/uL Hgb 9.5 L (13.0-17.0) g/dL Hct 30.3 L (39.6-50.0) % MCHC 31.4 L (32.0-37.0) g/dL RDW 14.7 H (11.5-14.5) % Plt Count 564 H (140-440) X 10*3/uL Immature Gran # 0.28 H (0.00-0.04) X 10*3/uL Neutrophils # 10.77 H (1.80-7.70) X 10*3/uL Monocytes # 1.54 H (0.20-1.00) X 10*3/uL Eosinophils # 0.36 H (0.04-0.35) X 10*3/uL Chloride (96-109) mmol/L Anion Gap (4.00-12.00) mmol/L BUN/Creatinine Ratio (12.00-20.00) Ratio POC Glucose (mg/dL) 138 H 150 H (70-110) mg/dL 02/19/24 02/19/24 Range/Units 05:07 11:41 WBC (4.50-10.00) X 10*3/uL RBC (4.40-5.60) X 10*6/uL Hgb (13.0-17.0) g/dL Hct (39.6-50.0) % MCHC (32.0-37.0) g/dL RDW (11.5-14.5) % Plt Count (140-440) X 10*3/uL Immature Gran # (0.00-0.04) X 10*3/uL Neutrophils # (1.80-7.70) X 10*3/uL Monocytes # (0.20-1.00) X 10*3/uL Eosinophils # (0.04-0.35) X 10*3/uL Chloride 95 L (96-109) mmol/L Anion Gap 12.10 H (4.00-12.00) mmol/L BUN/Creatinine Ratio 28.17 H (12.00-20.00) Ratio POC Glucose (mg/dL) 160 H (70-110) mg/dL
--- NOTE | 2024-02-19 15:55 | P.PN ---
Subjective Progress Note Date: 02/19/24 Principal diagnosis: Reason for follow-up is perforated diverticulitis with sepsis on admission Patient is a 53-year-old male with past medical history significant for diabetes mellitus hypertension anxiety bipolar depression and brain surgery patient presented to hospital with abdominal pain and this patient has been diagnosed with the ruptured diverticulitis and sepsis for the patient was transferred to [facility]. Patient is status post Exploratory laparotomy with sigmoid resection for perforated mid sigmoid colon, Descending colostomy and drainage of 1600 open abdominal abscess procedure completed on 01/31/2024. On today's evaluation that is 02/19/2024, patient has been afebrile, patient is breathing comfortably and is currently on room air, patient denies having any significant cough no chest pain shortness of breath, patient denies nausea vomit ing abdominal pain is currently controlled and did have output in his colostomy bag. Patient white count is down to 14.58 creatinine 0.6 Objective - Vital Signs Vital signs: Vital Signs Temp 97.3 F L 02/19/24 08:00 Pulse 76 02/19/24 08:00 Resp 17 02/19/24 08:00 BP 122/81 02/19/24 08:00 Pulse Ox 96 02/19/24 08:00 FiO2 Intake & Output 02/18/24 02/19/24 02/19/24 18:59 06:59 18:59 Output Total 975 500 935 Balance -975 -500 -935 Output: Drainage 150 Medial Abdomen 20 Right Abdomen 130 Urine 525 500 860 Stool 75 Urine/Stool Mix 300 Other: Voiding Method Urinal Urinal # Bowel Movements 150 - Exam GENERAL DESCRIPTION: Middle-age male lying in bed in no distress RESPIRATORY SYSTEM: Unlabored breathing , decreased breath sounds at bases HEART: S1 S2 regular rate and rhythm , ABDOMEN: Soft , mild tenderness EXTREMITIES: No edema feet - Labs CBC & Chem 7: 02/19/24 05:07 02/19/24 05:07 Labs: Abnormal Lab Results - Last 24 Hours (Table) 02/18/24 02/18/24 02/19/24 Range/Units 16:37 20:27 05:07 WBC 14.58 H (4.50-10.00) X 10*3/uL RBC 3.22 L (4.40-5.60) X 10*6/uL Hgb 9.5 L (13.0-17.0) g/dL Hct 30.3 L (39.6-50.0) % MCHC 31.4 L (32.0-37.0) g/dL RDW 14.7 H (11.5-14.5) % Plt Count 564 H (140-440) X 10*3/uL Immature Gran # 0.28 H (0.00-0.04) X 10*3/uL Neutrophils # 10.77 H (1.80-7.70) X 10*3/uL Monocytes # 1.54 H (0.20-1.00) X 10*3/uL Eosinophils # 0.36 H (0.04-0.35) X 10*3/uL Chloride (96-109) mmol/L Anion Gap (4.00-12.00) mmol/L BUN/Creatinine Ratio (12.00-20.00) Ratio POC Glucose (mg/dL) 138 H 150 H (70-110) mg/dL 02/19/24 02/19/24 Range/Units 05:07 11:41 WBC (4.50-10.00) X 10*3/uL RBC (4.40-5.60) X 10*6/uL Hgb (13.0-17.0) g/dL Hct (39.6-50.0) % MCHC (32.0-37.0) g/dL RDW (11.5-14.5) % Plt Count (140-440) X 10*3/uL Immature Gran # (0.00-0.04) X 10*3/uL Neutrophils # (1.80-7.70) X 10*3/uL Monocytes # (0.20-1.00) X 10*3/uL Eosinophils # (0.04-0.35) X 10*3/uL Chloride 95 L (96-109) mmol/L Anion Gap 12.10 H (4.00-12.00) mmol/L BUN/Creatinine Ratio 28.17 H (12.00-20.00) Ratio POC Glucose (mg/dL) 160 H (70-110) mg/dL Assessment and Plan (1) Penicillin allergy Current Visit: Yes Status: Acute Code(s): Z88.0 - ALLERGY STATUS TO PENICILLIN SNOMED Code(s): 30777867 (2) Perforation of sigmoid colon due to diverticulitis Current Visit: Yes Status: Acute Code(s): K57.20 - DVTRCLI OF LG INT W PERFORATION AND ABSCESS W/O BLEEDING SNOMED Code(s): 2526770343420656 (3) Peritonitis Current Visit: Yes Status: Acute Code(s): K65.9 - PERITONITIS, UNSPECIFIED SNOMED Code(s): 82564988 Plan: 1patient presented hospital with sepsis in this patient did have fever tachycardia source is acute ruptured appendicitis and peritonitis and will need to cover for enteric gram-negative to be the likely pathogen less likely gram- positive kike 2-penicillin allergy that will limit the number of antibiotics safe to use 3-patient repeat CT abdominal pelvis did shows diverticulitis with multiple foci of air and contained leak,patient is status post sigmoid colectomy descending colostomy and drainage of abdominal abscess cultures currently growing VRE, Hamida albicans and none albicans Hamida, patient did have a follow-up CT on 02/16/2024 mention overall decrease in the sizes of the intra-abdominal collection/abscesses 4-patient is afebrile white count is slightly up that we will monitor closely is a patient just had a CT which showed decrease in the size of the abscesses, patient has tolerated Zyvox to continue along with the Eraxis cefepime and Flagyl, patient has expressed a desire to go home instead of going to a facility he is already on oral Zyvox and Flagyl, I can switch cefepime to p.o. Ceftin, however I am not able to switch Eraxis to voriconazole as it is interacting with his other medication this has been discussed with the casework specialist working on his discharge Dictation was produced using [employer] dictation software. please excuse any grammatical, word or spelling errors. Time with Patient: Less than 30
[2024-02-19] MEDS: IPRATROPIUM-ALBUTEROL 3 ML NEB INHALATION SCH (16:08)
[2024-02-19 17:14] LABS: Glucose,Whole Blood 90 mg/dL (70-110)
[2024-02-19 20:13] LABS: Glucose,Whole Blood 135 mg/dL (70-110)
--- NOTE | 2024-02-19 20:13 | P.PN ---
Subjective Progress Note Date: 02/19/24 53-year-old gentleman past medical history significant for chronic back pain, history of hypertension, history of diabetes mellitus presented to the emergency department with complaints of acute onset of abdominal pain on top of chronic back pain. Patient states symptom onset was 24 hours prior to presentation. Patient said he has a progressive decrease in appetite and had vomited a few times before coming in. Patient said he had 4 small stools however abdominal pain persisted. Patient was sent as a transfer from an outside hospital due to concern for diverticulitis with perforation. General surgery team was contacted, patient was made n.p.o. consultation obtained from general surgery and infectious disease 02/02/2024 Patient is seen and evaluated in room at bedside; no specific complaints reported Vital signs are reviewed and temperature 98.4, pulse 82, respiration 18 and blood pressure 165/78 with O2 saturation 96% Labs revealed WBC of 22.7, improved from 23.7 yesterday, hemoglobin 11.4, platelet count of 238, sodium 138, potassium 4.1, BUNs/creatinine 18/0.76 and blood glucose of 113 -patient presented hospital with sepsis in this patient did have fever tachycardia source is acute ruptured appendicitis and peritonitis and will need to cover for enteric gram-negative to be the likely pathogen less likely gram- positive kike -penicillin allergy that will limit the number of antibiotics safe to use -patient repeat CT abdominal pelvis did shows diverticulitis with multiple foci of air and contained leak -patient white count slightly down today will monitor closely; continue with cefepime and Flagyl we will repeat CBC with a.m. lab 02/03/2024 Patient is seen and evaluated resting comfortably in bed; continues to report uncontrolled pain; reports his Dilaudid has been changed; ostomy not producing at this time Vital signs are reviewed and remained stable Lab review shows improved white blood count 16.3 hemoglobin of 9.6 and platelet count of 268, sodium 136, potassium 3.8, BUNs/creatinine of 12/0.5, phosphorus is low at 1.9 magnesium stable at 1.8 -we will supplement electrolytes and continue to monitor e will supplement electrolytes and continue to monitor --Surgery recommending to advance diet as tolerated 02/04/2024 Patient awake alert He has some abdominal pain tenderness, expected postoperatively, wound closed with wound VAC in place, left lower colostomy bag with small liquid brown stool. No vomiting, poor appetite He is on Dilaudid drip 0.2 and normal saline 50 mL/h 02/05/2024 Patient awake alert He is in distress due to abdominal pain, wound VAC in place He is still on TPN Eraxis added to IV Flagyl and cefepime. Midline is requested Plan for ECF on 02/06/2024 Patient abdominal pain is controlled today. He can tolerate some liquid diet with no vomiting He emptied his colostomy bag yesterday. This morning it has no or minimal discharge He remains on TPN Plan for midline Patient will benefit from ECF upon discharge. Currently on broad-spectrum antibiotic with cefepime, IV Flagyl, Eraxis and daptomycin, ID team on the case 02/07/2024 Patient continued to improve slowly and gradually He tolerates oral diet, still getting TPN Abdominal pain is better 3/10 This morning he emptied his colostomy bag No chest pain or dyspnea. He remains on daptomycin, cefepime Flagyl and antifungal switched to an indulfaungin 02/08/2024 Patient abdominal pain controlled Patient is getting TPN, with plan to taper it off No new complaints Patient can be transferred out of the select unit 02/09/2024 Patient also with significant abdominal pain, Is complaining from more severe back pain today requiring extra dose of Dilaudid Patient is stable 02/10/2024 Patient complains much of his back pain asking for better pain control stating that he is taking IV Dilaudid and is not more satisfied. Patient on IV Dilaudid 1 mg every 6 hours we lowered to 0.5 mg and increase frequency of oxycodone from every 6 hours up to every 4 hours. Patient remains on Eraxis, daptomycin and IV Flagyl and cefepime 02/11/2024 Patient is seen and evaluated in follow-up today with general surgery and infectious disease following. Patient is maintained on antibiotics and does have a PICC line. Surgical digna of the abdomen including sites appear well- approximated although patient continues to have some abdominal distention. Patient is having bowel movements although continued abdominal pain. Plan is for repeat CT abdomen today. Will await report and appreciate input and recommendations from surgery. Case management/social work following as patient will be needing rehab on discharge for continued strength and mobility as patient has had significant clinical decline and extreme weakness. Patient has been encouraged to use incentive spirometer at least 10 times every hour while awake. at the bedside questions and concerns that were answered. 02/12/2024 Patient is seen in follow-up today underwent CT abdomen yesterday showing multiple abscesses and progression and IR has been consulted for drainage tube placement. Patient is continued on antibiotics with infectious disease following. White count mildly improved from yesterday and we will follow-up on cultures from the drainage. Per nursing staff patient is requesting pain medication [id number] and will adjust medications accordingly. Patient has been instructed to increase activity as tolerated and recommend physical therapy daily. Patient will need ECF on discharge. 02/13/2024 Patient is seen in follow-up today with multiple medical consultations foll owing. General surgery following and interventional radiology had evaluated the patient status post drainage tubes as patient was noted to have further abscesses on repeat CT imaging. Patient continues on antibiotics with infectious disease following and awaiting finalized cultures. Plan is for R egency on discharge for continued strength and mobility as patient reports is unable to get up and walk and needs assistance. Patient with multiple antibiotics and wound care would make it extremely unsafe and difficult to manage and high risk for readmission if went home. Patient is adamant he is going home on discharge although family feels he needs rehab. Patient is extremely agitated today regarding his pain medication regimen as he reports he has significant 10/10 pain with a history of chronic pain and his home medications are not working. Patient reports his pain is in his back and his constant headaches that he reports has daily due to his previous past medical history of a brain hemorrhage. Per surgery Dr. Christie, patient is to continue on current regimen as she has ordered. Awaiting finalized cultures to determine appropriate discharge antibiotics. Patient does have a PICC line. 02/14/2024 Patient being seen this morning with multiple medical consultations following. Patient does have a PICC line and will continue on antibiotic therapy outpatient. Patient will require at least 10 days of antibiotics per ID recommendations. Patient reported pain was uncontrolled and continued on IV Dilaudid and have consulted pain management being started on fentanyl patch. Recommend and discussed with patient and family regarding IV narcotic use limitation. General surgery following and has cleared the patient for discharge and will be monitored overnight as patient did have a low-grade temp last night. White count is trending down and recommend close outpatient follow-up labs. Patient does have a scheduled appointment with general surgery outpatient. Patient to follow-up with orthopedics once medically stable from current clinical condition. [facility] is for [facility] and [facility] and currently awaiting insurance authorization. 02/15/2024 Patient is seen and evaluated in follow-up today initially was scheduled for discharge to ECF although cultures showing multiple resistance and patient is maintained on Paxil making it difficult for antibiotic therapy recommendations and patient would be unable to take Zyvox because of the Paxil. Patient will continue on IV antibiotics and does have a PICC line with infectious disease following recommending to keep the patient hospitalized and monitor and make adjustments accordingly. Patient white count remains elevated at 15 and patient is afebrile. Patient continues to report significant pain which is secondary to his chronic back pain. Case management is following and has made [facility] aware. Patient has received insurance authorization which will need to be adjusted once patient is medically stable for discharge. Due to the holiday weekend patient will likely not discharge until early next week. 02/18/2024 Patient is seen in follow-up today with general surgery following performed abdominal dressing changes including removing some of the digna with some minimal drainage noted. Patient is continued on antibiotics and antifungal medications with infectious disease following. Pain patient reports is uncontrolled although patient has been noted to be sleeping on exam. Per nursing staff patient continues to request IV pain medications [id number]. Patient reports fentanyl patch is not helping at all. Pain management is following we will discuss further pain regimen. White count remains elevated persistent although patient remains afebrile. Encouraged incentive spirometer use and getting up out of the bed more frequently. Patient reports he has difficulty getting out of the bed due to his severe chronic back pain. Ostomy is functioning and patient is tolerating diet. Continue bowel regimen 02/19/2024 Patient is seen in follow-up today with multiple medical consultations following. Patient is maintained on antibiotics and antifungals per ID recommendations. White count remains elevated although is trending down and patient remains afebrile. Patient reports he would like to go home as opposed to going to [facility]. Patient was initially approved to go to [facility] with a uthorization obtained although will require updated authorization if patient continues the need for wound care, PT, and IV antibiotic therapies. Will discuss further with case management and family in regards to discharge planning. Patient with extensive prolonged hospitalization and weakness would benefit from ECF. Patient is extremely high risk for readmission given significant comorbidities. Patient denies any nausea or vomiting and has been tolerating diet. Patient to receive ostomy training and does have noted stool in the ostomy. Will discuss with other consultations regarding discharge planning. Review of systems: Constitutional: No reports of fatigue, fever, or chills Cardiovascular: No reports of chest pain or palpitations Respiratory: No reports of shortness of breath or cough GI: reports of intermittent nausea, no vomiting, reports having bowel movements in the ostomy, liquid, reports gas, reports current abdominal pain is controlled : No reports of dysuria or retention Neurovascular: reports of generalized weakness and continued severe chronic back pain that is continuous and fentanyl patch is not helping Physical exam: GENERAL: The patient is alert and oriented x3, obese. Well developed, well nourished. HEENT: Pupils are round and equally reacting to light. EOMI. No scleral icterus. No conjunctival pallor. Normocephalic, atraumatic. No pharyngeal erythema. No thyromegaly. CARDIOVASCULAR: S1 and S2 muffled PULMONARY: Diminished breath sounds bilaterally otherwise chest is clear to auscultation, no wheezing , no crackles. ABDOMEN: Soft, less tender on palpation, less distended, normoactive bowel sounds. No palpable organomegaly. Left lower quadrant colostomy in place, vertical wound with multiple digna noted appears well-approximated, surgical dressing is dry and intact MUSCULOSKELETAL: No joint swelling or deformity. EXTREMITIES: No cyanosis, clubbing, or pedal edema. Generalized edema noted of lower extremities NEUROLOGICAL: Gross neurological examination did not reveal any focal deficits. Diffusely weak SKIN: No rashes. no petechiae. Pale Assessment: Acute diverticulitis with perforation and localized abscess s/p surgical intervention exploratory laporotomy, Huntley's procedure, sigmoid resection and descending colostomy and drainage of intra-abdominal abscess on 01/30 with progression noted on repeat CT imaging on 02/11/2024 for new abscess formation Status post abscess drainage with gauze quite scary blood drainage tube placement with interventional radiology Sepsis secondary to intra-abdominal infection Acute kidney injury prerenal due to hypotension and dehydration. 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 Anxiety maintained on xanax scheduled Obesity with a BMI of 37.8 GI prophylaxis DVT prophylaxis Full code Plan: Continue with antibiotics with infectious disease following. Patient does have a PICC line and will require IV antibiotics outpatient. Patient's cultures with multidrug resistance making it difficult to adjust medications due to patient being on Paxil as we have limited options due to the resistance. Adjustments being made to antibiotic therapy and recommend holding the patient at this time to adjust medications and monitor. Patient to be on at least 10 days IV antibiotic therapy on discharge. Will discuss further with case management and ID regarding discharge planning as patient reports he would like to go home now. Unsure if there are options regarding coverage of antibiotics given multi resistance and limited ability due to his other medications he chronically takes. Continue local wound care per general surgery and infectious disease General surgery following and patient continues to have some abdominal discomfort and distention with repeat CT abdomen showing multiple abscesses and fluid collection. IR has placed drainage tubes. Patient has been cleared by surgery for outpatient follow-up. Some surgical digna were removed with minimal drainage noted recommending continuing on antibiotic coverage. Patient continues to report uncontrolled pain and pain management following and has started the patient on a fentanyl patch. Patient reports the patch is not helping. Recommend limiting IV narcotic use as per nursing staff patient continues to request IV Dilaudid [id number]. Recommend reevaluation with PT/OT therapy as patient reports he is adamant about going home. When asking patient to walk he reports he cannot due to his severe back pain but has family support and help with the home to get him around. Case management following as patient will need ECF on discharge. Patient has received authorization for [facility]. Will require updated insurance authorization and will discuss with family and case management regarding discharge planning Encouraged oral intake with diet recommendations per surgery Continue incentive spirometer use at least 10 times every hour while awake due to multiple complex medical issues, prognosis is guarded The impression and plan of care has been dictated by An Liu, Nurse Practitioner as directed. Dr. Tawanda MD I have performed a history and examination and MDM of this patient, discussed the same with the dictator, and agree with the dictator's assessment and plan as written ,documented as a scribe. Based on total visit time, I have performed more than 50% of the visit. Overall Objective - Vital Signs Vital signs: Vital Signs Temp 98.5 F 02/19/24 14:00 Pulse 113 H 02/19/24 14:00 Resp 18 02/19/24 14:00 BP 128/80 02/19/24 14:00 Pulse Ox 92 L 02/19/24 14:00 FiO2 Intake & Output 02/18/24 02/19/24 02/19/24 18:59 06:59 18:59 Output Total 975 500 935 Balance -975 -500 -935 Output: Drainage 150 Medial Abdomen 20 Right Abdomen 130 Urine 525 500 860 Stool 75 Urine/Stool Mix 300 Other: Voiding Method Urinal Urinal # Bowel Movements 150 - Labs CBC & Chem 7: 02/19/24 05:07 02/19/24 05:07 Labs: Abnormal Lab Results - Last 24 Hours (Table) 02/18/24 02/18/24 02/19/24 Range/Units 16:37 20:27 05:07 WBC 14.58 H (4.50-10.00) X 10*3/uL RBC 3.22 L (4.40-5.60) X 10*6/uL Hgb 9.5 L (13.0-17.0) g/dL Hct 30.3 L (39.6-50.0) % MCHC 31.4 L (32.0-37.0) g/dL RDW 14.7 H (11.5-14.5) % Plt Count 564 H (140-440) X 10*3/uL Immature Gran # 0.28 H (0.00-0.04) X 10*3/uL Neutrophils # 10.77 H (1.80-7.70) X 10*3/uL Monocytes # 1.54 H (0.20-1.00) X 10*3/uL Eosinophils # 0.36 H (0.04-0.35) X 10*3/uL Chloride (96-109) mmol/L Anion Gap (4.00-12.00) mmol/L BUN/Creatinine Ratio (12.00-20.00) Ratio POC Glucose (mg/dL) 138 H 150 H (70-110) mg/dL 02/19/24 02/19/24 Range/Units 05:07 11:41 WBC (4.50-10.00) X 10*3/uL RBC (4.40-5.60) X 10*6/uL Hgb (13.0-17.0) g/dL Hct (39.6-50.0) % MCHC (32.0-37.0) g/dL RDW (11.5-14.5) % Plt Count (140-440) X 10*3/uL Immature Gran # (0.00-0.04) X 10*3/uL Neutrophils # (1.80-7.70) X 10*3/uL Monocytes # (0.20-1.00) X 10*3/uL Eosinophils # (0.04-0.35) X 10*3/uL Chloride 95 L (96-109) mmol/L Anion Gap 12.10 H (4.00-12.00) mmol/L BUN/Creatinine Ratio 28.17 H (12.00-20.00) Ratio POC Glucose (mg/dL) 160 H (70-110) mg/dL
[2024-02-20 05:46] LABS: Glucose,Whole Blood 96 mg/dL (70-110)
[2024-02-20 09:16] LABS: Basophils # (A) 0.11 X 10*3/uL (0.00-0.10); Basophils % (A) 0.9 %; Eosinophils # (A) 0.38 X 10*3/uL (0.04-0.35); HCT 30.2 % (39.6-50.0); HGB 9.4 g/dL (13.0-17.0); Lymphocytes # (A) 1.54 X 10*3/uL (0.90-5.00); MCHC 31.1 g/dL (32.0-37.0); MCV 96.5 FL (80.0-97.0); Mean Platelet Volume 10.3 FL (9.5-12.2); Monocytes # (A) 1.55 X 10*3/uL (0.20-1.00); Monocytes % (A) 12.1 %; NRBC Per 100 WBC 0 X 10*3/uL (0.00-0.01); Neutrophils # (A) 8.93 X 10*3/uL (1.80-7.70); Neutrophils % (A) 69.8 %; Platelet Count 578 X 10*3/uL (140-440); RBC 3.13 X 10*6/uL (4.40-5.60); RDW 14.8 % (11.5-14.5); WBC 12.79 X 10*3/uL (4.50-10.00)
--- NOTE | 2024-02-20 13:06 | P.PN ---
Subjective Progress Note Date: 02/20/24 CHIEF COMPLAINT: Diverticulitis HISTORY OF PRESENT ILLNESS: Patient is status post exploratory with sigmoid resection for perforated mid sigmoid colon and descending colostomy on 01/31/24. Patient reports his pain is controlled. Ostomy is functioning. He is tolerating diet. Afebrile. WBC trending down from 14.5-12.79 PHYSICAL EXAM: VITAL SIGNS: Reviewed GENERAL: Well-developed in no acute distress. ABDOMEN: Soft. Nondistended. Ostomy functioning. Midline incision site with Aqucel silver packing above the umbilicus with minimal purulent drainage noted. Drains in place with serous purulent drainage ASSESSMENT: 1. Perforated complicated sigmoid diverticulitis with pelvic abscess. Culture with VRE and Hamida 2. Sepsis present on admission due to perforated diverticulitis 3. abdominal abscesses status post drain placement x 2 drains PLAN: -Patient can be discharged from surgical standpoint -Discharge antibiotics per infectious disease -Continue local wound care with Aquacel silver packing to midline incision -Patient to be discharged with drains -Continue pain management -DVT prophylaxis subcu heparin and GI prophylaxis Protonix Physician Miner Placer note has been reviewed by physician. Signing provider agrees with the documented findings, assessment, and plan of care. Objective - Vital Signs Vital signs: Vital Signs Temp 98 F 02/20/24 08:01 Pulse 72 02/20/24 08:48 Resp 15 02/20/24 08:01 BP 154/90 02/20/24 08:01 Pulse Ox 97 02/20/24 08:01 FiO2 Intake & Output 02/19/24 02/20/24 02/20/24 18:59 06:59 18:59 Intake Total 480 Output Total 1495 1370 900 Balance -1015 -1370 -900 Intake: Oral 480 Output: Drainage 100 70 Medial Abdomen 20 20 Right Abdomen 80 50 Urine 1240 900 900 Stool 155 400 - Labs CBC & Chem 7: 02/20/24 05:20 02/19/24 05:07 Labs: Abnormal Lab Results - Last 24 Hours (Table) 02/19/24 02/20/24 Range/Units 20:12 05:20 WBC 12.79 H (4.50-10.00) X 10*3/uL RBC 3.13 L (4.40-5.60) X 10*6/uL Hgb 9.4 L (13.0-17.0) g/dL Hct 30.2 L (39.6-50.0) % MCHC 31.1 L (32.0-37.0) g/dL RDW 14.8 H (11.5-14.5) % Plt Count 578 H (140-440) X 10*3/uL Immature Gran # 0.28 H (0.00-0.04) X 10*3/uL Neutrophils # 8.93 H (1.80-7.70) X 10*3/uL Monocytes # 1.55 H (0.20-1.00) X 10*3/uL Eosinophils # 0.38 H (0.04-0.35) X 10*3/uL Basophils # 0.11 H (0.00-0.10) X 10*3/uL POC Glucose (mg/dL) 135 H (70-110) mg/dL
--- NOTE | 2024-02-20 15:17 | P.DS ---
Providers Date of admission: 01/25/24 18:04 Expected date of discharge: 02/20/24 Attending physician: Sadia Woods Consults: 01/25/24 18:02 Consult Physician Urgent Consulting Provider: Misti Kincaid Consult Reason/Comments: Diverticulitis with rupture Do you want consulting provider notified?: Already Contacted 01/26/24 04:24 Consult Physician Routine Consulting Provider: Karla López Consult Reason/Comments: Antibiotic management Do you want consulting provider notified?: Yes, Notify in am 01/27/24 10:37 Consult Physician Routine Consulting Provider: Gio Cole Consult Reason/Comments: Acute renal failure Do you want consulting provider notified?: Yes 01/27/24 12:19 Consult Physician Routine Consulting Provider: Cornelius Pelayo Consult Reason/Comments: Abnormal EKG Do you want consulting provider notified?: Yes, Notify in am 01/28/24 08:00 Consult Physician Routine Consulting Provider: Benny Vega Consult Reason/Comments: Spinal fracture, back pain Do you want consulting provider notified?: Yes, Notify in am 02/14/24 04:51 Consult Physician Urgent Consulting Provider: Angel Vasques Consult Reason/Comments: uncontrolled pain, chronic back pain Do you want consulting provider notified?: Yes 02/19/24 08:28 Consult Physician Routine Consulting Provider: Fabiano Church Consult Reason/Comments: diverticulitis Do you want consulting provider notified?: Already Contacted Primary care physician: Joel Mahmood MD Hospital Course: Final diagnosis Acute diverticulitis with perforation and localized abscess s/p surgical intervention exploratory laporotomy, Huntley's procedure, sigmoid resection and descending colostomy and drainage of intra-abdominal abscess on 01/30 with progression noted on repeat CT imaging on 02/11/2024 for new abscess formation Status post abscess drainage with drainage tube placement with interventional radiology Sepsis secondary to intra-abdominal infection with multidrug resistance noted on the cultures including Enterococcus faecium VRE, Hamida Acute kidney injury prerenal due to hypotension and dehydration. improving Metabolic acidosis treated hypophosphatemia improved Diabetes mellitus type 2 Chronic back pain with degenerative disease of lumbar spine, was evaluated by orthopedics recommending conservative management at this time History of hypertension currently normotensive chronic pain syndrome Hx of coronary artery disease with prior PCI. Anxiety maintained on xanax scheduled Obesity with a BMI of 37.8 GI prophylaxis DVT prophylaxis Full code Discharge disposition Patient is being discharged in a stable condition with guarded prognosis to [facility] [place]. Patient will follow-up with Dr. Mahmood in the outpatient setting upon discharge. Patient is to continue with oral Ceftin, Flagyl, Zyvox for 10 days per ID recommendations. Patient to follow-up with general surgery Dr. Christie as scheduled. Patient to follow-up with orthopedics outpatient once cleared by general surgery. Total time taken is greater than 35 minutes. Hospital course This is a 53-year-old male who was recently admitted with severe abdominal pain with increased vomiting and intolerance to oral intake and sent here from another hospital with concerns of diverticulitis with perforation. Patient was evaluated by surgery and underwent exploratory laparotomy Huntley's procedure with sigmoid resection and descending colostomy with multiple diverticular abscesses noted. Patient maintained on antibiotics with a PICC line and ostomy is now functioning although patient had increased abdominal distention and repeat CT showed multiple progression of abscesses and is status post drainage placement with interventional radiology. Culture showing Enterococcus VRE with multidrug resistance making it difficult for antibiotic regimen. Patient was continued on Eraxis along with Zyvox and Flagyl and will be continuing on Flagyl, Ceftin, Zyvox orally per ID recommendations and close outpatient follow- up with general surgery. Patient with extensive chronic pain in the back was scheduled to have orthopedic intervention although given this current situation orthopedics has evaluated recommending conservative management for now until this is cleared up and then outpatient follow-up with orthopedics for his back pain and possible surgical intervention. Patient takes a number of narcotic medications including uses marijuana in the outpatient setting and reports continued uncontrolled pain. Patient was continued on IV Dilaudid and evaluated by pain management recommending Oxy IR as well as fentanyl patch and his scheduled Robaxin. Patient reports he refuses to follow-up with pain management outpatient as he was not satisfied with their services previously and reports the fentanyl patch is not helping at all. Patient is very specific about his pain medication regimen to be delivered and given in a timely manner as prescribed. Patient was extensively counseled that he is not receiving IV pain medications at [facility] and will need to follow-up with pain management outpatient as there are laws against prescribing narcotics to this extent. Patient reports his primary care provider Dr. Mahmood prescribes all of these for him. Patient has been instructed to follow-up with his primary care provider on discharge. Patient has been cleared by consultations recommending close outpatient follow- up with general surgery and will continue a 10-day course of antibiotics per ID recommendations. Patient to continue with ostomy and wound care along with extensive physical therapy as patient has had prolonged hospitalization and progressive weakness. Please refer to other consultation notes for further HPI. Currently no reports of chest pain, shortness of breath, or palpitations. Patient is afebrile. No reports of nausea or vomiting and patient is tolerating diet. Patient will be going to [facility] [place] today. Guarded prognosis and high risk for readmissions given patient's significant comorbidities Physical exam: Gen: This is a 53-year-old male who is awake, alert and oriented x 3, well- developed, thin built, elderly appearing, obese HEENT: Head is atraumatic, normocephalic. Pupils equal, round. Sclerae is anicteric. NECK: Supple. No JVD. No lymphadenopathy. No thyromegaly. LUNGS: diminished breath sounds bilaterally otherwise clear to auscultation. No wheezes or rhonchi. No intercostal retractions. HEART: Regular rate and rhythm. No murmur. ABDOMEN: Soft. Bowel sounds are present. No masses. No tenderness. Ostomy noted with stool EXTREMITIES: No pedal edema. No calf tenderness. NEUROLOGICAL: Patient is awake, alert and oriented x3. Cranial nerves 2 through 12 are grossly intact. Diffusely weak Please refer to medication reconciliation sheet for a list of medications. The impression and plan of care has been dictated by An Liu, Nurse Practitioner as directed. Dr. Tawanda MD I have performed a history and examination and MDM of this patient, discussed the same with the dictator, and agree with the dictator's assessment and plan as written ,documented as a scribe. Based on total visit time, I have performed more than 50% of the visit. Patient Condition at Discharge: Fair Plan - Discharge Summary New Discharge Prescriptions: New metroNIDAZOLE [Flagyl] 500 mg PO TID #30 tab oxyCODONE HCL [OxyIR] 15 mg PO Q6H PRN #4 tab PRN Reason: Moderate Pain (Scale 4 To 6) Linezolid [Zyvox] 600 mg PO Q12H 10 Days #20 tab fentaNYL 25MCG/HR PATCH [Duragesic 25MCG/HR] 1 patch TRANSDERM Q72H #1 patch Heparin Sodium,Porcine (1 ml) [Heparin Sodium] 5,000 unit SQ Q12HR each INSULIN ASPART (NovoLOG) [NovoLOG (formulary)] 0 unit SQ ACHS each Pantoprazole [Protonix] 40 mg PO AC-BRKFST tab Acetaminophen Tab [Tylenol] 1,000 mg PO Q6HR tab ALPRAZolam [Xanax] 1 mg PO 0800,1400,2000 #6 tab Ipratropium-Albuterol Nebulize [Duoneb 0.5 mg-3 mg/3 ml Soln] 3 ml INHALATION RT-TID each Lidocaine 4% Patch 1 patch TOPICAL DAILY patch Morphine Sulfate ER [Ms Contin] 15 mg PO Q12HR #4 tab cefUROXime axetiL [Cefuroxime] 500 mg PO BID 10 Days #20 tab Continue Cholecalciferol (Vitamin D3) [Vitamin D3 (3000 Iu)] 75 mcg PO HS methocarbamoL [Robaxin-750] 750 mg PO TID PRN PRN Reason: Muscle Spasm Pregabalin [Lyrica] 150 mg PO BID #4 cap MDD 300mg Melatonin 5 mg PO HS Acetaminophen [Tylenol Arthritis] 650 mg PO Q8H PRN PRN Reason: Pain ALPRAZolam [Xanax] 1 mg PO TID PRN PRN Reason: Anxiety Meclizine HCl [Dramamine] 25 mg PO TID PRN PRN Reason: Motion Sickness Discontinued metFORMIN HCL 1,000 mg PO BID PARoxetine HCL [Paxil] 40 mg PO HS oxyCODONE HCL [oxyCODONE HCL (IR)] 15 mg PO Q6H PRN MDD 60mg PRN Reason: Moderate Pain (Scale 4 To 6) Benazepril HCl 40 mg PO HS Discharge Medication List ALPRAZolam [Xanax] 1 mg PO TID PRN 01/25/24 [History] Acetaminophen [Tylenol Arthritis] 650 mg PO Q8H PRN 01/25/24 [History] Cholecalciferol (Vitamin D3) [Vitamin D3 (3000 Iu)] 75 mcg PO HS 01/25/24 [History] Meclizine HCl [Dramamine] 25 mg PO TID PRN 01/25/24 [History] Melatonin 5 mg PO HS 01/25/24 [History] methocarbamoL [Robaxin-750] 750 mg PO TID PRN 01/25/24 [History] ALPRAZolam [Xanax] 1 mg PO 0800,1400,2000 #6 tab 02/15/24 [Rx] Acetaminophen Tab [Tylenol] 1,000 mg PO Q6HR tab 02/15/24 [Rx] Heparin Sodium,Porcine (1 ml) [Heparin Sodium] 5,000 unit SQ Q12HR each 02/15/24 [Rx] INSULIN ASPART (NovoLOG) [NovoLOG (formulary)] 0 unit SQ ACHS each 02/15/24 [Rx] Pantoprazole [Protonix] 40 mg PO AC-BRKFST tab 02/15/24 [Rx] Pregabalin [Lyrica] 150 mg PO BID #4 cap MDD 300mg 02/15/24 [Rx] fentaNYL 25MCG/HR PATCH [Duragesic 25MCG/HR] 1 patch TRANSDERM Q72H #1 patch 02/15/24 [Rx] Ipratropium-Albuterol Nebulize [Duoneb 0.5 mg-3 mg/3 ml Soln] 3 ml INHALATION RT-TID each 02/20/24 [Rx] Lidocaine 4% Patch 1 patch TOPICAL DAILY patch 02/20/24 [Rx] Linezolid [Zyvox] 600 mg PO Q12H 10 Days #20 tab 02/20/24 [Rx] Morphine Sulfate ER [Ms Contin] 15 mg PO Q12HR #4 tab 02/20/24 [Rx] cefUROXime axetiL [Cefuroxime] 500 mg PO BID 10 Days #20 tab 02/20/24 [Rx] metroNIDAZOLE [Flagyl] 500 mg PO TID #30 tab 02/20/24 [Rx] oxyCODONE HCL [OxyIR] 15 mg PO Q6H PRN #4 tab 02/20/24 [Rx] Follow up Appointment(s)/Referral(s): Misti Kincaid MD [STAFF PHYSICIAN] - 03/11/24 1:15 pm Benny Vega DO [Doctor of Osteopathic Medicine] - 3 Weeks Karla López MD [STAFF PHYSICIAN] - 2 Weeks Joel Mahmood MD [Primary Care Provider] - 1 Week Ambulatory/Diagnostic Orders: Complete Blood Count w/diff [LAB.AMB] Time Frame: 3 Days, Location: None Selected Patient Instructions/Handouts: Diverticulitis (GEN), Colostomy Care (DC), Diverticulitis Diet (DC), Colostomy Irrigation (GEN) Activity/Diet/Wound Care/Special Instructions: Ostomy: Last changed 02/19/2024 [place] 1 piece cut-to-fit #[id number] Change every 3 to 7 days and as needed Empty when half full Increase protein diet, 90 to 100 g daily. Wound care includes antibacterial soap daily. Then pat dry. Apply hydrogen peroxide along midline incision and digna to prevent infection Follow-up with infectious disease DrMadison Discharge/Stand Alone Forms: Who Do I Call? Discharge Disposition: TRANSFER TO SNF/ECF
[2024-02-20 15:22] VITALS: PULSE 81
[2024-02-20 17:02] VITALS: BP 128/78; RESP 16; TEMP 97.9
--- NOTE | 2024-02-21 16:49 | P.PN ---
Subjective Progress Note Date: 02/20/24 Principal diagnosis: Reason for follow-up is perforated diverticulitis with sepsis on admission Patient is a 53-year-old male with past medical history significant for diabetes mellitus hypertension anxiety bipolar depression and brain surgery patient presented to hospital with abdominal pain and this patient has been diagnosed with the ruptured diverticulitis and sepsis for the patient was transferred to [facility]. Patient is status post Exploratory laparotomy with sigmoid resection for perforated mid sigmoid colon, Descending colostomy and drainage of 1600 open abdominal abscess procedure completed on 01/31/2024. On today's evaluation that is 02/20/2024,the patient denies any fever or any chills, patient is breathing comfortably on room air, the patient denies chest pain shortness of breath and no significant cough, patient denies abdominal pain, no nausea vomiting did have output in his colostomy bag patient has been complaining about his pain medication and has been refusing to go to the rehab though the mentioned that he is too weak to go home. Patient white count is down to 12.79 Objective - Vital Signs Vital signs: Vital Signs Temp 98 F 02/20/24 08:01 Pulse 72 02/20/24 08:48 Resp 15 02/20/24 08:01 BP 154/90 02/20/24 08:01 Pulse Ox 97 02/20/24 08:01 FiO2 Intake & Output 02/19/24 02/20/24 02/20/24 18:59 06:59 18:59 Intake Total 480 Output Total 1495 1370 900 Balance -1015 -1370 -900 Weight 123 kg Intake: Oral 480 Output: Drainage 100 70 Medial Abdomen 20 20 Right Abdomen 80 50 Urine 1240 900 900 Stool 155 400 - Exam GENERAL DESCRIPTION: Middle-age male lying in bed in no distress RESPIRATORY SYSTEM: Unlabored breathing , decreased breath sounds at bases HEART: S1 S2 regular rate and rhythm , ABDOMEN: Soft , mild tenderness EXTREMITIES: No edema feet - Labs CBC & Chem 7: 02/20/24 05:20 02/19/24 05:07 Labs: Abnormal Lab Results - Last 24 Hours (Table) 02/19/24 02/20/24 Range/Units 20:12 05:20 WBC 12.79 H (4.50-10.00) X 10*3/uL RBC 3.13 L (4.40-5.60) X 10*6/uL Hgb 9.4 L (13.0-17.0) g/dL Hct 30.2 L (39.6-50.0) % MCHC 31.1 L (32.0-37.0) g/dL RDW 14.8 H (11.5-14.5) % Plt Count 578 H (140-440) X 10*3/uL Immature Gran # 0.28 H (0.00-0.04) X 10*3/uL Neutrophils # 8.93 H (1.80-7.70) X 10*3/uL Monocytes # 1.55 H (0.20-1.00) X 10*3/uL Eosinophils # 0.38 H (0.04-0.35) X 10*3/uL Basophils # 0.11 H (0.00-0.10) X 10*3/uL POC Glucose (mg/dL) 135 H (70-110) mg/dL Assessment and Plan (1) Penicillin allergy Status: Acute Code(s): Z88.0 - ALLERGY STATUS TO PENICILLIN SNOMED Code(s): 90702437 (2) Perforation of sigmoid colon due to diverticulitis Status: Acute Code(s): K57.20 - DVTRCLI OF LG INT W PERFORATION AND ABSCESS W/O BLEEDING SNOMED Code(s): 1270649991411010 (3) Peritonitis Status: Acute Code(s): K65.9 - PERITONITIS, UNSPECIFIED SNOMED Code(s): 83853308 Plan: 1patient presented hospital with sepsis in this patient did have fever tachycardia source is acute ruptured appendicitis and peritonitis and will need to cover for enteric gram-negative to be the likely pathogen less likely gram- positive kike 2-penicillin allergy that will limit the number of antibiotics safe to use 3-patient repeat CT abdominal pelvis did shows diverticulitis with multiple foci of air and contained leak,patient is status post sigmoid colectomy descending colostomy and drainage of abdominal abscess cultures currently growing VRE, Hamida albicans and none albicans Hamida, patient did have a follow-up CT on 02/16/2024 mention overall decrease in the sizes of the intra- abdominal collection/abscesses 4-patient is afebrile white count is trending down patient has been refusing to go to rehab importance of going to rehab has been explained to the patient to prevent any falls and fractures we will suggest IV Eraxis, oral Zyvox Ceftin and Flagyl x 10 days and close outpatient follow-up after multiple persuasion and talk patient apparently to go to the rehab at the bedside multiple question concern answered Dictation was produced using [employer] dictation software. please excuse any grammatical, word or spelling errors. Time with Patient: Greater than 30
--- NOTE | 2024-02-21 18:58 | CDI ---
Documentation Clarification Form Date: 02/21/2024 06:40:46 PM From: Hollie Jauregui Phone: Admit Date: 01/25/2024 06:04:00 PM Patient Name: Mello Nix Visit Number: [id number] Discharge Date: 02/20/2024 04:48:00 PM ATTENTION: The Clinical Documentation Specialists (CDI) and [facility] Coding Staff appreciate your assistance in clarifying documentation. Please respond to the clarification below the line at the bottom and electronically sign. The CDI & [facility] Coding staff will review the response and follow-up if needed. Please note: Queries are made part of the Legal Health Record. If you have any questions, please contact the author of this message via ITS. Dr. Janelle Neff Your patient has an abnormal lab value: Glucose 49 per Progress Note Labs 01/26. Please clarify if there is an additional diagnosis and/or clinical significance related to this value. History/Risk Factors: 53yo M, Acutediverticulitis with perforationandlocalizedabscess, s/pHartman's procedure w descendingcolostomy, Sepsis wEnterococcusfaeciumVRE,Hamida, OLIVIA, hypotension,dehydration, metabolic acidosis, hypophosphatemia, DMII, chronic pain syndrome d/t DDDL, HTN, DMII, CAD, anxiety, obesity Clinical indicators: Glucose 01/24 155 01/26 61-133 02/03 160 02/04 169 [id number] Treatment: Accu-Cheks every 4 hours continue patient on correctional insulin monitor forhypoglycemia; Pt npo Home Meds: metformin HCL 1,000 mg PO BID Is there an additional diagnosis and/or clinical significance related to the above lab results? Please check all/any that apply [ ] Diabetes mellitus type 2 with hyperglycemia [ ] Diabetes mellitus type 2 with hypoglycemia [ ] No additional diagnosis/Not clinically significant [ ] Other, please specify [ ] Unable to determine (Template Last Revised: October 2020) Diabetes mellitus type 2 with hypoglycemia MTDD
== END 2024-02-20 16:48 | DRG 853 ==
LOC: EC 17:22 → 5NMEDONC 18:04 → 3SCARD 01-27 20:31 → 4SSUR 02-13 20:55
PROVIDERS: ADMIT Internal Medicine; ATTEND Internal Medicine
PROC: 0DTN0ZZ Resection of Sigmoid Colon, Open Approach (ICD-10-PCS; 2024-01-31)
PROC: 0DNN0ZZ Release Sigmoid Colon, Open Approach (ICD-10-PCS; 2024-01-31)
PROC: 0W9G0ZZ Drainage of Peritoneal Cavity, Open Approach (ICD-10-PCS; 2024-01-31)
PROC: 02HV33Z Insertion of Infusion Device into Superior Vena Cava, Percutaneous Approach (ICD-10-PCS; 2024-01-31)
PROC: 3E0436Z Introduction of Nutritional Substance into Central Vein, Percutaneous Approach (ICD-10-PCS; 2024-01-31)
PROC: B51V1ZZ Fluoroscopy of Other Veins using Low Osmolar Contrast (ICD-10-PCS; 2024-01-31)
PROC: 3E1M48Z Irrigation of Peritoneal Cavity using Irrigating Substance, Percutaneous Endoscopic Approach (ICD-10-PCS; 2024-01-31)
PROC: 0D1M0Z4 Bypass Descending Colon to Cutaneous, Open Approach (ICD-10-PCS; principal; 2024-01-31 07:30)
PROC: 05HF33Z Insertion of Infusion Device into Left Cephalic Vein, Percutaneous Approach (ICD-10-PCS; 2024-02-05)
PROC: 0W9G30Z Drainage of Peritoneal Cavity with Drainage Device, Percutaneous Approach (ICD-10-PCS; 2024-02-12)
DX: A41.81 Sepsis due to Enterococcus (principal); E43 Unspecified severe protein-calorie malnutrition; N17.0 Acute kidney failure with tubular necrosis; K65.1 Peritoneal abscess; M48.56XA Collapsed vertebra, not elsewhere classified, lumbar region, initial encounter for fracture; B37.89 Other sites of candidiasis; R18.8 Other ascites; E87.20 Acidosis, unspecified; K57.20 Diverticulitis of large intestine with perforation and abscess without bleeding; Z16.21 Resistance to vancomycin; Z16.24 Resistance to multiple antibiotics; E11.649 Type 2 diabetes mellitus with hypoglycemia without coma; F31.9 Bipolar disorder, unspecified; E83.39 Other disorders of phosphorus metabolism; I95.89 Other hypotension; I11.9 Hypertensive heart disease without heart failure; E66.09 Other obesity due to excess calories; F41.1 Generalized anxiety disorder; E78.5 Hyperlipidemia, unspecified; G89.4 Chronic pain syndrome; R29.6 Repeated falls; R41.3 Other amnesia; M85.88 Other specified disorders of bone density and structure, other site; I25.10 Atherosclerotic heart disease of native coronary artery without angina pectoris; E83.42 Hypomagnesemia; I49.3 Ventricular premature depolarization; E86.0 Dehydration; E86.1 Hypovolemia; E87.6 Hypokalemia; D72.819 Decreased white blood cell count, unspecified; R45.1 Restlessness and agitation; R55 Syncope and collapse; K59.00 Constipation, unspecified; B95.2 Enterococcus as the cause of diseases classified elsewhere; Z96.651 Presence of right artificial knee joint; Z68.37 Body mass index [BMI] 37.0-37.9, adult; Z98.1 Arthrodesis status; Z79.84 Long term (current) use of oral hypoglycemic drugs; Z79.899 Other long term (current) drug therapy; Z88.0 Allergy status to penicillin; Z80.0 Family history of malignant neoplasm of digestive organs; Z87.891 Personal history of nicotine dependence; Z91.81 History of falling; I25.2 Old myocardial infarction; Z86.73 Personal history of transient ischemic attack (TIA), and cerebral infarction without residual deficits; Z87.820 Personal history of traumatic brain injury; Z95.5 Presence of coronary angioplasty implant and graft
CPT/HCPCS: 36410; 36573; 71045; 74176; 74177; 75989; 76937; 80048; 80053; 82330; 82533; 82565; 83036; 83605; 83735; 84100; 84478; 84484; 85025; 85027; 85610; 85652; 85730; 86140; 86850; 86900; 86901; 87040; 87070; 87075; 87077; 87186; 87205; 88307; 93005; 93306; 94640; 94760; 96361; 96374; 99285

== ENCOUNTER 2024-02-24 10:43 | Inpatient (IN) | payer MEDICARE ==
--- NOTE | 2024-02-24 11:51 | ED ---
Back Pain HPI - General Chief Complaint: Back Pain/Injury Stated Complaint: back pain Time Seen by Provider: 02/24/24 11:00 Source: patient, EMS, RN notes reviewed Limitations: no limitations - History of Present Illness Initial Comments: 53-year-old male presenting with abdominal pain and back pain. Patient was recently admitted for bowel perforation and sepsis due to diverticulitis and was discharged from the hospital 4 days ago. He underwent a surgery with Dr. Kincaid on January 30 for partial bowel resection and has a colostomy bag placed. Patient was discharged 4 days ago but is now having increased pain and states he is unable to manage his wound care at home. He also reports increasing back and abdominal pain since discharge from the hospital. Denies fevers, chills, chest pain, shortness of breath. He lives at home with his . States his next follow-up appointment is on March 11. - Related Data Home Medications Medication Instructions Recorded Confirmed ALPRAZolam [Xanax] 1 mg PO TID PRN 01/25/24 01/25/24 Acetaminophen [Tylenol Arthritis] 650 mg PO Q8H PRN 01/25/24 01/25/24 Cholecalciferol (Vitamin D3) 75 mcg PO HS 01/25/24 01/25/24 [Vitamin D3 (3000 Iu)] Meclizine HCl [Dramamine] 25 mg PO TID PRN 01/25/24 01/25/24 Melatonin 5 mg PO HS 01/25/24 01/25/24 methocarbamoL [Robaxin-750] 750 mg PO TID PRN 01/25/24 01/25/24 Previous Rx's Medication Instructions Recorded ALPRAZolam [Xanax] 1 mg PO 0800,1400,2000 #6 tab 02/15/24 Acetaminophen Tab [Tylenol] 1,000 mg PO Q6HR tab 02/15/24 Heparin Sodium,Porcine (1 ml) 5,000 unit SQ Q12HR each 02/15/24 [Heparin Sodium] INSULIN ASPART (NovoLOG) [NovoLOG 0 unit SQ ACHS each 02/15/24 (formulary)] Pantoprazole [Protonix] 40 mg PO AC-BRKFST tab 02/15/24 Pregabalin [Lyrica] 150 mg PO BID #4 cap MDD 300mg 02/15/24 fentaNYL 25MCG/HR PATCH [Duragesic 1 patch TRANSDERM Q72H #1 patch 02/15/24 25MCG/HR] Ipratropium-Albuterol Nebulize 3 ml INHALATION RT-TID each 02/20/24 [Duoneb 0.5 mg-3 mg/3 ml Soln] Lidocaine 4% Patch 1 patch TOPICAL DAILY patch 02/20/24 Linezolid [Zyvox] 600 mg PO Q12H 10 Days #20 tab 02/20/24 Morphine Sulfate ER [Ms Contin] 15 mg PO Q12HR #4 tab 02/20/24 cefUROXime axetiL [Cefuroxime] 500 mg PO BID 10 Days #20 tab 02/20/24 metroNIDAZOLE [Flagyl] 500 mg PO TID #30 tab 02/20/24 oxyCODONE HCL [OxyIR] 15 mg PO Q6H PRN #4 tab 02/20/24 Allergies Allergy/AdvReac Type Severity Reaction Status Date / Time divalproex sodium Allergy Rapid Verified 02/24/24 10:53 [From Depakote] Heart Rate Penicillins Allergy Anaphylaxis Verified 01/25/24 18:03 Review of Systems ROS Statement: Those systems with pertinent positive or pertinent negative responses have been documented in the HPI. ROS Other: All systems not noted in ROS Statement are negative. Past Medical History Past Medical History: CVA/TIA, Diabetes Mellitus, Hypertension, Myocardial Infarction ([place]), Osteoarthritis (OA) Additional Past Medical History / Comment(s): CVA x3 with TIA, 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, frequent falls Last Myocardial Infarction Date:: 2018 History of Any Multi-Drug Resistant Organisms: VRE Date of last positivie culture/infection: 01/31/24 MDRO Source:: Wound-site not specified Past Surgical History: Back Surgery, Bowel Resection, Heart Catheterization With Stent, Joint Replacement Additional Past Surgical History / Comment(s): Brain surgery, T-9 to T-10 autofusion, T-11 to S-1 fusion, L-2 compression fracture, S-1 hardware failure, (R) knee replacement, 01/25/2024 (sepsis) sigmoid diverticulitis/abcess with perforated bowel-ostomy Past Anesthesia/Blood Transfusion Reactions: No Reported Reaction Date of Last Stent Placement:: 2018 Past Psychological History: Anxiety, Bipolar, Depression Smoking Status: Former smoker Past Alcohol Use History: None Reported Past Drug Use History: None Reported General Exam Limitations: no limitations General appearance: alert, in no apparent distress Head exam: Present: atraumatic, normocephalic, normal inspection Eye exam: Present: normal appearance, PERRL, EOMI. Absent: scleral icterus, conjunctival injection, periorbital swelling ENT exam: Present: normal exam, mucous membranes moist Neck exam: Present: normal inspection. Absent: tenderness, meningismus, lymphadenopathy Respiratory exam: Present: normal lung sounds bilaterally. Absent: respiratory distress, wheezes, rales, rhonchi, stridor Cardiovascular Exam: Present: regular rate, normal rhythm, normal heart sounds. Absent: systolic murmur, diastolic murmur, rubs, gallop, clicks GI/Abdominal exam: Present: soft, normal bowel sounds, other (Colostomy bag present and surgical incision is clean dry intact on right side of abdomen.). Absent: distended, tenderness, guarding, rebound, rigid Extremities exam: Present: normal inspection, full ROM, normal capillary refill. Absent: tenderness, pedal edema, joint swelling, calf tenderness Back exam: Present: normal inspection. Absent: tenderness Neurological exam: Present: alert, oriented X3, CN II-XII intact Psychiatric exam: Present: normal affect, normal mood Skin exam: Present: warm, dry, intact, normal color. Absent: rash Course Vital Signs 02/24/24 10:49 Temperature 98.1 F Pulse Rate 80 Respiratory 18 Rate Blood Pressure 121/86 O2 Sat by Pulse 96 Oximetry Medical Decision Making - Medical Decision Making Was pt. sent in by a medical professional or institution (, PA, YEAST PUSHER, urgent care, hospital, or [facility]...) When possible be specific @ -No Did you speak to anyone other than the patient for history (EMS, parent, family, police, friend...)? What history was obtained from this source @ -Patient's supplemented history Did you review nursing and triage notes (agree or disagree)? Why? @ -Yes, I agree Were old charts reviewed (outside hosp., previous admission, EMS record, old EKG, old radiological studies, urgent care reports/EKG's, [facility] records)? Report findings @ -Reviewed previous admission notes as patient was discharged 4 days ago Differential Diagnosis (chest pain, altered mental status, abdominal pain women, abdominal pain men, vaginal bleeding, weakness, fever, dyspnea, syncope, headache, dizziness, GI bleed, back pain, seizure, CVA, palpatations, mental health, musculoskeletal)? @ -Differential Abdominal Pain Men: Appendicitis, cholecystitis, diverticulosis, ischemic bowel, pancreatitis, hepatitis, UTI, gastroenteritis, AAA, incarcerated hernia, bowel obstruction, constipation, inflammatory bowel, hepatitis, peptic ulcer disease, splenic infarction, perforated viscus, testicular torsion, this is not meant to be an all-inclusive list EKG interpreted by me (3pts min.). @ -None X-rays interpreted by me (1pt min.). @ -None done CT interpreted by me (1pt min.). @ -CT revealed interval development of distal small bowel obstruction U/S interpreted by me (1pt. min.). @ -None done What testing was considered but not performed or refused? (CT, X-rays, U/S, labs)? Why? @ -None What meds were considered but not given or refused? Why? @ -None Did you discuss the management of the patient with other professionals (professionals i.e. , PA, YEAST PUSHER, lab, RT, psych nurse, social insurance adviser, lawyer real estate, teacher, public affairs officer, upper caser)? Give summary @ -Case discussed with Dr. Schneider who instructed admission to Dr. Kincaid at this time with consult with Dr. Neff Was smoking cessation discussed for >3mins.? @ -No Was critical care preformed (if so, how long)? @ -No Were there social determinants of health that impacted care today? How? (Homelessness, low income, unemployed, alcoholism, drug addiction, transportation, low edu. Level, literacy, decrease access to med. care, [place] [facility], rehab)? @ -No Was there de-escalation of care discussed even if they declined (Discuss DNR or withdrawal of care, Hospice)? DNR status @ -No What co-morbidities impacted this encounter? (DM, HTN, Smoking, COPD, CAD, Cancer, CVA, ARF, Chemo, Hep., AIDS, mental health diagnosis, sleep apnea, morbid obesity)? @ -None Was patient admitted / discharged? Hospital course, mention meds given and route, prescriptions, significant lab abnormalities, going to OR and other pertinent info. @ -Patient was admitted. Patient was seen and evaluated for abdominal pain x 4 days since discharge from hospital 4 days ago. Patient recently underwent abdominal surgery for perforated bowel with sepsis. Patient is experiencing increased generalized abdominal pain. Patient is nontender upon examination and incisions are clean dry and intact with no sign of bacterial infection. Pain is controlled with morphine. Lab work largely unchanged from last visit besides mild hyponatremia at 131. CT reveals interval development of distal small bowel obstruction. Case discussed with Dr. Schneider who instructed admission to Dr. Kincaid at this time with consult to Dr. Neff. Patient started on IV fluids, Levaquin (due to penicillin allergy), antiemetics, and NG tube. Patient is made n.p.o. Case discussed with Dr. Kendrick Undiagnosed new problem with uncertain prognosis? @ -No Drug Therapy requiring intensive monitoring for toxicity (Heparin, Nitro, Insulin, Cardizem)? @ -No Were any procedures done? @ -No Diagnosis/symptom? @ -Distal small bowel obstruction Acute, or Chronic, or Acute on Chronic? @ -Acute Uncomplicated (without systemic symptoms) or Complicated (systemic symptoms)? @ -Complicated Side effects of treatment? @ -No Exacerbation, Progression, or Severe Exacerbation? @ -No Poses a threat to life or bodily function? How? (Chest pain, USA, PA, pneumonia, PE, COPD, DKA, ARF, appy, cholecystitis, CVA, Diverticulitis, Homicidal, Suicidal, threat to staff... and all critical care pts) @ -Yes - Lab Data Result diagrams: 02/24/24 11:39 02/24/24 11:39 Lab Results 02/24/24 02/24/24 02/24/24 Range/Units 11:39 11:39 11:39 WBC 13.7 H (3.8-10.6) k/uL RBC 3.43 L (4.30-5.90) m/uL Hgb 10.2 L (13.0-17.5) gm/dL Hct 32.4 L (39.0-53.0) % MCV 94.5 (80.0-100.0) fL MCH 29.6 (25.0-35.0) pg MCHC 31.4 (31.0-37.0) g/dL RDW 15.4 (11.5-15.5) % Plt Count 565 H (150-450) k/uL MPV 7.9 Neutrophils % 83 % Lymphocytes % 10 % Monocytes % 5 % Eosinophils % 1 % Basophils % 0 % Neutrophils # 11.3 H (1.3-7.7) k/uL Lymphocytes # 1.3 (1.0-4.8) k/uL Monocytes # 0.7 (0-1.0) k/uL Eosinophils # 0.2 (0-0.7) k/uL Basophils # 0.0 (0-0.2) k/uL Sodium 131 L (137-145) mmol/L Potassium 4.8 (3.5-5.1) mmol/L Chloride 99 (98-107) mmol/L Carbon Dioxide 23 (22-30) mmol/L Anion Gap 9 mmol/L BUN 31 H (9-20) mg/dL Creatinine 0.83 (0.66-1.25) mg/dL Est GFR (CKD-EPI)AfAm >90 (>60 ml/min/1.73 sqM) Est GFR (CKD-EPI)NonAf >90 (>60 ml/min/1.73 sqM) Glucose 99 (74-99) mg/dL Plasma Lactic Acid Collin 1.2 (0.7-2.0) mmol/L Calcium 9.0 (8.4-10.2) mg/dL Total Bilirubin 0.7 (0.2-1.3) mg/dL AST 30 (17-59) U/L ALT 13 (4-49) U/L Alkaline Phosphatase 177 H (38-126) U/L Total Protein 7.0 (6.3-8.2) g/dL Albumin 3.3 L (3.5-5.0) g/dL Lipase 54 (23-300) U/L Disposition Clinical Impression: Small bowel obstruction Disposition: ADMITTED IP TO THIS HOSP Referrals: Joel Mahmood MD [Primary Care Provider] - 1-2 days
[2024-02-24 12:01] LABS: ALT 13 U/L (4-49); AST 30 U/L (17-59); African American GFR (CKD) >90 (>60 ml/min/1.73 sqM); Albumin 3.3 g/dL (3.5-5.0); Alkaline Phosphatase 177 U/L (38-126); Anion Gap 9 mmol/L; Blood Urea Nitrogen 31 mg/dL (9-20); Carbon Dioxide 23 mmol/L (22-30); Chloride 99 mmol/L (98-107); Glucose 99 mg/dL (74-99); Lipase 54 U/L (23-300); Non-African American GFR(CKD) >90 (>60 ml/min/1.73 sqM); Potassium 4.8 mmol/L (3.5-5.1); Sodium 131 mmol/L (137-145); Total Bilirubin 0.7 mg/dL (0.2-1.3)
[2024-02-24 12:06] LABS: Basophils % (A) 0 %; Eosinophils # (A) 0.2 k/uL (0-0.7); Eosinophils % (A) 1 %; HCT 32.4 % (39.0-53.0); HGB 10.2 gm/dL (13.0-17.5); Lymphocytes # (A) 1.3 k/uL (1.0-4.8); Lymphocytes % (A) 10 %; MCH 29.6 pg (25.0-35.0); MCHC 31.4 g/dL (31.0-37.0); MCV 94.5 fL (80.0-100.0); Mean Platelet Volume 7.9; Monocytes # (A) 0.7 k/uL (0-1.0); Monocytes % (A) 5 %; Neutrophils # (A) 11.3 k/uL (1.3-7.7); Neutrophils % (A) 83 %; Platelet Count 565 k/uL (150-450); RBC 3.43 m/uL (4.30-5.90); RDW 15.4 % (11.5-15.5); WBC 13.7 k/uL (3.8-10.6)
[2024-02-24] MEDS: MORPHINE SULFATE 2 MG/ML SYRINGE IVP ONE ×2 (12:28→17:54)
--- NOTE | 2024-02-24 13:32 | CT ---
EXAMINATION TYPE: CT abdomen pelvis wo con DATE OF EXAM: 02/24/2024 COMPARISON: 02/16/2024 HISTORY: Abdominal pain, acute, nonlocalized CT DLP: 1031.6 mGycm Automated exposure control for dose reduction was used. TECHNIQUE: Helical acquisition of images was performed from the lung bases through the pelvis. FINDINGS: EXAMINATION TYPE: CT abdomen pelvis wo con DATE OF EXAM: 02/24/2024 HISTORY: Abdominal pain, acute, nonlocalized COMPARISON: NONE CT DLP: 1031.6 mGycm. Automated Exposure Control for Dose Reduction was Utilized. TECHNIQUE: CT scan of the abdomen and pelvis is performed without IV contrast. The lung bases are clear. The gallbladder is markedly distended but there are no gallstones, wall thi ckening or pericholecystic fluid.. There is no focal mass or organomegaly involving the liver, pancreas, spleen or adrenal glands.The fl uid collection with a percutaneous drainage catheter along the lateral aspect of the liver is unchang ed. The pigtail percutaneous drainage catheter entering the anterior lower abdomen terminates just anteri or to the urinary bladder and there is no significant fluid collection. There is a left lower quadrant ostomy. There is no solid renal mass or hydronephrosis and there is homogeneous contrast enhancement of the r enal parenchyma. There is a tiny 1 to 2 mm nonobstructing left renal calcification. There are right r enal vascular calcifications. The caliber the abdominal aorta is normal is no retroperitoneal adenopathy or hemorrhage. There has been interval development of multiple air and fluid fluid loops of small bowel consistent w ith a mid to distal small bowel obstruction. There is no free intraperitoneal air or fluid. No pelvic mass, free fluid, abscess or adenopathy. There is laminectomy and fusion in the lower lumbar spine. IMPRESSION: 1. No change in the lateral perihepatic fluid collection and drainage catheter. 2. Resolution of the abscess anterior to the urinary bladder but no change in the pigtail drainage ca theter. 3. Interval development of mid to distal small bowel obstruction
[2024-02-24] MEDS ORDERED: ONDANSETRON 4 MG/2 ML VIAL IVP PRN ×2 (13:55→18:01)
[2024-02-24] MEDS ORDERED: NALOXONE 0.4 MG/ML 1 ML VIAL IV PRN (13:55)
[2024-02-24] MEDS: LEVOFLOXACIN 500MG-D5W PMX 500 MG in DEXTROSE/WATER 1 100ML.BAG IVPB STA (14:31)
[2024-02-24] MEDS: METOCLOPRAMIDE 5 MG/ML 2 ML VIAL IVP STA (14:31)
--- NOTE | 2024-02-24 15:54 | XR ---
EXAMINATION TYPE: XR chest 1V portable DATE OF EXAM: 02/24/2024 3:27 PM CLINICAL INDICATION:Male, 53 years old with history of confirm NG placement; COMPARISON: Chest radiographs from 02/12/2024 TECHNIQUE: XR chest 1V portable Frontal view of the chest. FINDINGS: Lungs/Pleura: There is no evidence of pleural effusion, focal consolidation, or pneumothorax. Pulmonary vascularity: Unremarkable. Heart/mediastinum: Cardiomediastinal silhouette is unremarkable. Musculoskeletal: No acute osseous pathology. There is lower spine fixation hardware is present. Nasogastric tube distal tip projecting out of the [id number] and side-port project over the gastri c lumen in the left upper quadrant. IMPRESSION: Nasogastric tube in appropriate position of the diaphragm. No acute cardiopulmonary disease/process.
[2024-02-24] MEDS: 0.9% NACL WITH KCL 20 MEQ/L 1,000 ML IV ONE (17:54)
[2024-02-24] MEDS: PANTOPRAZOLE 40 MG/10 ML VIAL IVP SCH (19:31)
[2024-02-24] MEDS: HEPARIN SODIUM,PORCINE 5,000 UNIT/ML 1 ML VIAL SQ SCH (21:21)
[2024-02-24] MEDS: MORPHINE SULFATE 2 MG/ML SYRINGE IVP PRN (21:21)
[2024-02-25] MEDS ORDERED: DEXTROSE 50% SYRINGE 50 ML IVP PRN ×2 (13:41)
--- NOTE | 2024-02-25 13:48 | P.CONS ---
History of Present Illness - Reason for Consult Consult date: 02/25/24 Medical management - History of Present Illness History of present illness; patient 53-year-old gentleman with past medical history significant for recent admission for perforated diverticulitis, requiring surgical intervention with exploratory laparotomy, Preeti procedure, sigmoid resection and descending colostomy, patient also ended up having abscess formation that required drainage by IR. Patient was discharged on antibiotics per ID. Patient was only discharged 4 days ago, ever since his discharge he states that he is having more pain, denies any fever or chills. There is no current nausea or vomiting. Denies any chest pain or shortness of breath. Patient was unable to take care of his wound and ostomy at home. Because of this, he came back to the ER Initial lab work done in the ER showed BBC 13.7, hemoglobin 10.2, platelet count 565, sodium 131, potassium 4.8, BUN 31, creatinine 0.83, lactate 1.2, AST 30, ALT 133, alk phos 177 Chest x-ray done in the ER no acute cardiopulmonary process CT abdominal pelvis done showed no change in the lateral perihepatic fluid collection and drainage catheter. Resolution of the abscess anterior to the urinary bladder but no change in the pigtail drainage catheter. Mild to distal small bowel obstruction Patient admitted to general surgery REVIEW OF SYSTEMS: CONSTITUTIONAL: No fever, no malaise, no fatigue. HEENT: No recent visual problems or hearing problems. Denied any sore throat. CARDIOVASCULAR: No chest pain, orthopnea, PND, no palpitations, no syncope. PULMONARY: No shortness of breath, no cough, no hemoptysis. GASTROINTESTINAL: As mentioned above NEUROLOGICAL: No headaches, no weakness, no numbness. HEMATOLOGICAL: Denies any bleeding or petechiae. GENITOURINARY: Denies any burning micturition, frequency, or urgency. MUSCULOSKELETAL/RHEUMATOLOGICAL: Denies any joint pain, swelling, or any muscle pain. ENDOCRINE: Denies any polyuria or polydipsia. The rest of the 14-point review of systems is negative. PHYSICAL EXAMINATION: GENERAL: The patient is alert and oriented x3, ill looking HEENT: Pupils are round and equally reacting to light. EOMI. No scleral icterus. No conjunctival pallor. Normocephalic, atraumatic. No pharyngeal erythema. No thyromegaly. CARDIOVASCULAR: S1 and S2 present. No murmurs, rubs, or gallops. PULMONARY: Chest is clear to auscultation, no wheezing or crackles. ABDOMEN: Laparotomy surgical incision seen, ostomy seen, drains in place MUSCULOSKELETAL: No joint swelling or deformity. EXTREMITIES: No cyanosis, clubbing, or pedal edema. NEUROLOGICAL: Gross neurological examination did not reveal any focal deficits. SKIN: No rashes. Assessment and plan Small bowel obstruction Recent acute diverticulitis with perforation and localized abscess s/p surgical intervention exploratory laporotomy, Huntley's procedure, sigmoid resection and descending colostomy and drainage of intra-abdominal abscess on 01/30 with progression noted on repeat CT imaging on 02/11/2024 for new abscess formation Status post abscess drainage with drainage tube placement with interventional radiology Sepsis secondary to intra-abdominal infection with multidrug resistance noted on the cultures including Enterococcus faecium VRE, Hamida Diabetes mellitus type 2 Chronic back pain with degenerative disease of lumbar spine History of hypertension chronic pain syndrome Hx of coronary artery disease with prior PCI. Anxiety Monitor vital signs Monitor CBC Monitor CMP Keep patient n.p.o. Continue NG tube per general surgery Continue IV fluids continue pain management Monitor blood sugar level, continue sliding scale insulin Consulted ID Resume home meds once okay with surgery Labs and medication were reviewed.. Continue same treatment. Continue with symptomatic treatment. Resume home medication. Monitor labs and vitals. DVT and GI prophylaxis. Further recommendations as per clinical course of the patient Dictation was produced using [employer] dictation software. please excuse any grammatical, word or spelling errors. Past Medical History Past Medical History: CVA/TIA, Diabetes Mellitus, Hypertension, Myocardial Infarction ([place]), Osteoarthritis (OA) Additional Past Medical History / Comment(s): CVA x3 with TIA, 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, frequent falls Last Myocardial Infarction Date:: 2019 History of Any Multi-Drug Resistant Organisms: VRE Year Discovered:: 01/31/24 MDRO Source:: Wound-site not specified Past Surgical History: Back Surgery, Bowel Resection, Heart Catheterization With Stent, Joint Replacement Additional Past Surgical History / Comment(s): Brain surgery, T-9 to T-10 autofusion, T-11 to S-1 fusion, L-2 compression fracture, S-1 hardware failure, (R) knee replacement, 01/25/2024 (sepsis) sigmoid diverticulitis/abcess with perforated bowel-ostomy Past Anesthesia/Blood Transfusion Reactions: No Reported Reaction Date of Last Stent Placement:: 2018 Past Psychological History: Anxiety, Bipolar, Depression Smoking Status: Former smoker Past Alcohol Use History: None Reported Past Drug Use History: None Reported Medications and Allergies Home Medications Medication Instructions Recorded Confirmed Type Acetaminophen [Tylenol Arthritis] 650 mg PO Q8H PRN 01/25/24 02/24/24 History Cholecalciferol (Vitamin D3) 75 mcg PO HS 01/25/24 02/24/24 History [Vitamin D3 (3000 Iu)] Meclizine HCl [Dramamine] 25 mg PO TID PRN 01/25/24 02/24/24 History Melatonin 5 mg PO HS 01/25/24 02/24/24 History methocarbamoL [Robaxin-750] 750 mg PO TID PRN 01/25/24 02/24/24 History Heparin Sodium,Porcine (1 ml) 5,000 unit SQ Q12HR each 02/15/24 02/24/24 Rx [Heparin Sodium] Pantoprazole [Protonix] 40 mg PO AC-BRKFST tab 02/15/24 02/24/24 Rx Pregabalin [Lyrica] 150 mg PO BID #4 cap MDD 300mg 02/15/24 02/24/24 Rx Ipratropium-Albuterol Nebulize 3 ml INHALATION RT-TID each 02/20/24 02/24/24 Rx [Duoneb 0.5 mg-3 mg/3 ml Soln] Linezolid [Zyvox] 600 mg PO Q12H 10 Days #20 tab 02/20/24 02/24/24 Rx Morphine Sulfate ER [Ms Contin] 15 mg PO Q12HR #4 tab 02/20/24 02/24/24 Rx cefUROXime axetiL [Cefuroxime] 500 mg PO BID 10 Days #20 tab 02/20/24 02/24/24 Rx metroNIDAZOLE [Flagyl] 500 mg PO TID #30 tab 02/20/24 02/24/24 Rx ALPRAZolam [Xanax] 1 mg PO TID@0800,1400,2000 02/24/24 02/24/24 History INSULIN ASPART (NovoLOG) [NovoLOG See Protocol SQ ACHS 02/24/24 02/24/24 History (formulary)] oxyCODONE HCL [Oxycodone HCl] 15 mg PO Q6H PRN MDD 60MG 02/24/24 02/24/24 History Allergies Allergy/AdvReac Type Severity Reaction Status Date / Time divalproex sodium Allergy Rapid Verified 02/24/24 14:43 [From Depakote] Heart Rate Penicillins Allergy Anaphylaxis Verified 02/24/24 14:43 Physical Exam Vitals: Vital Signs Temp Pulse Pulse Resp BP BP Pulse Ox 02/25/24 07:37 98.4 F 72 19 125/73 96 02/25/24 01:52 98.6 F 77 18 125/67 95 02/24/24 18:51 98.1 F 80 16 125/74 97 02/24/24 18:15 79 18 133/64 96 02/24/24 15:01 77 18 132/77 96 Intake and Output 02/24/24 02/25/24 02/25/24 22:59 06:59 14:59 Output Total 1050 800 Balance -1050 -800 Output: Gastric Drainage 400 Urine 650 800 Other: Voiding Method Urinal Weight 96.615 kg Results CBC & Chem 7: 02/24/24 11:39 02/24/24 11:39
[2024-02-25] MEDS ORDERED: MECLIZINE 25 MG TAB PO PRN (13:56)
--- NOTE | 2024-02-25 14:08 | P.GSHP ---
History of Present Illness H&P Date: 02/25/24 CHIEF COMPLAINT: Abdominal pain HISTORY OF PRESENT ILLNESS: The patient is a 53-year-old male who presented acutely to the hospital 1 month ago on 01/25/2024 with perforated diverticulitis. Patient had developed sepsis and peritonitis requiring diverting colostomy and evacuation of fecal peritonitis 01/31/2024. Patient has pre-existing severe chronic back pain. He also have baseline traumatic brain injury. Patient had additional drains placed due to intra-abdominal localized abscess. He reports prior to his discharge on 02/20/2024, he was passing flatus in his ostomy bag and tolerating diet. Patient was on a manage chronic pain plan with antibiotic management for vancomycin-resistant Enterococcus. Patient was initially transferred to [facility] for rehab and then left AGAINST MEDICAL ADVICE and went home within 24 to 48 hours from his admission at the rehab facility. His at bedside gives additional history that the patient had gone home and had progressively declined with increasing back pain. Patient does report eating salt so that he may have emesis. Patient reports feculent emesis when he presented to the emergency room and at home. Since admission, no fevers or chills. Nasogastric tube was placed with now minimal bilious second as the patient is tolerating water around his NG tube. Reports decreased abdominal distention. He reports moderate output of his ostomy bag yesterday. He reports his primary complaint is back pain today. Patient was readmitted due to bowel obstruction found on CT scan. Patient reports that he is eager to be discharged from the hospital. Patient also reports malfunctioning of his CT- guided catheter draining PAST MEDICAL HISTORY: See list and reviewed PAST SURGICAL HISTORY: See list and reviewed MEDICATIONS: See list and reviewed ALLERGIES: See list and reviewed SOCIAL HISTORY: See list and reviewed FAMILY HISTORY: See list and reviewed REVIEW OF ORGAN SYSTEMS: CONSTITUTIONAL: No fevers or chills. Has weight loss over 20+ pounds. EYES: Denies any trouble with vision. No glasses. HEENT: Has difficulty hearing. No nosebleeds. No difficulty swallowing. RESPIRATORY: Denies pneumonia. Denies any troubles with breathing or dyspnea on exertion. CARDIOVASCULAR: Has hypertensive heart disease. GASTROINTESTINAL: Denies fatty food intolerance. Has change in bowel habits and gas bloat. GENITOURINARY: Denies any blood in urine or increased urinary frequency. NEUROLOGICAL: Has prior brain injury. MUSCULOSKELETAL: Has back pain, stiffness or joint arthritis. SKIN: No current skin cancer. No rash. PSYCHIATRIC: Has depression. Has generalized anxiety disorder. Has bipolar disorder. ENDOCRINE: Denies current thyroid disorders. Has diabetes type 2. HEME/LYMPHATIC: Denies any lumps and bumps around the neck. No recent deep venous thrombosis. ALLERGY/IMMUNOLOGY: No immunoglobulin therapy. No immune deficiencies. BREAST: Denies current breast lumps, pain or nipple discharge. PHYSICAL EXAM: VITALS: Reviewed CONSTITUTIONAL: Well developed and in no acute distress. EYES: Conjuctivae without sclera icterus. Extraocular movements grossly intact. HEAD, EARS, NOSE, THROAT: Moist buccal mucosa. Head is atraumatic, normocephalic. Hears conversational speech. No nasal drainage. NECK: Supple. No JV distention. No thyroidomegaly. RESPIRATORY: Non-labored respirations and equal bilateral excursions. No gross wheezes. CARDIOVASCULAR: Palpable 2+ radial pulses. ABDOMEN: Nontender. Well-healed midline incision without active drainage. Ostomy patent and pink. Some stool. Minimal flatus. Drainage of the right sided CT drain bag mostly serous. Pelvic drainage catheter with dressing discontinued and minimal output LYMPH: No neck lymphadenopathy. MUSCULOSKELETAL: No clubbing cyanosis or edema SKIN: Warm and well perfused with good skin turgor. NEUROLOGIC: Cranial nerves II through XII grossly intact. No focal or lateralizing signs. PSYCH: Appropriate affect. Alert and oriented to person, place and time. Displays appropriate insight. CLINCAL LABS: Reviewed. WBC 13,000 with slight increase from discharge of 12,000 RADIOLOGY: CT of the abdomen pelvis independently reviewed demonstrate moderate decreased fluid collection along the right abdomen and of the bladder. Localized abdominal distention involving the small bowel to the pelvis. REPORT: CT of the abdomen pelvis report demonstrates mid to distal bowel obstruction. ASSESSMENT: 1. Small bowel obstruction due to adhesions 2. VRE enteric coccus with fecal peritonitis due to perforated diverticulitis 3. Chronic pain due to chronic lower back pain PLAN: 1. Infectious disease consultation for complicated antibiotic management and care. 2. Medical consultation due to complicated medical management 3. I personally discontinued his nasogastric tube as patient reports resolution of abdominal distention as well as transit abdominal pain. 4. Resumption of home chronic pain medications needs 5. May start clear liquid diet. 6. Disposition pending tolerating diet following resolution of bowel obstruction with discharge home health care needs 7. 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, frequent falls Last Myocardial Infarction Date:: 2018 History of Any Multi-Drug Resistant Organisms: VRE Date of last positivie culture/infection: 01/31/24 MDRO Source:: Wound-site not specified Past Surgical History: Back Surgery, Bowel Resection, Heart Catheterization With Stent, Joint Replacement Additional Past Surgical History / Comment(s): Brain surgery, T-9 to T-10 a utofusion, T-11 to S-1 fusion, L-2 compression fracture, S-1 hardware failure, (R) knee replacement, 01/25/2024 (sepsis) sigmoid diverticulitis/abcess with perforated bowel-ostomy Past Anesthesia/Blood Transfusion Reactions: No Reported Reaction Date of Last Stent Placement:: 2018 Past Psychological History: Anxiety, Bipolar, Depression Smoking Status: Former smoker Past Alcohol Use History: None Reported Past Drug Use History: None Reported Medications and Allergies Home Medications Medication Instructions Recorded Confirmed Type Acetaminophen [Tylenol Arthritis] 650 mg PO Q8H PRN 01/25/24 02/24/24 History Cholecalciferol (Vitamin D3) 75 mcg PO HS 01/25/24 02/24/24 History [Vitamin D3 (3000 Iu)] Meclizine HCl [Dramamine] 25 mg PO TID PRN 01/25/24 02/24/24 History Melatonin 5 mg PO HS 01/25/24 02/24/24 History methocarbamoL [Robaxin-750] 750 mg PO TID PRN 01/25/24 02/24/24 History Heparin Sodium,Porcine (1 ml) 5,000 unit SQ Q12HR each 02/15/24 02/24/24 Rx [Heparin Sodium] Pantoprazole [Protonix] 40 mg PO AC-BRKFST tab 02/15/24 02/24/24 Rx Pregabalin [Lyrica] 150 mg PO BID #4 cap MDD 300mg 02/15/24 02/24/24 Rx Ipratropium-Albuterol Nebulize 3 ml INHALATION RT-TID each 02/20/24 02/24/24 Rx [Duoneb 0.5 mg-3 mg/3 ml Soln] Linezolid [Zyvox] 600 mg PO Q12H 10 Days #20 tab 02/20/24 02/24/24 Rx Morphine Sulfate ER [Ms Contin] 15 mg PO Q12HR #4 tab 02/20/24 02/24/24 Rx cefUROXime axetiL [Cefuroxime] 500 mg PO BID 10 Days #20 tab 02/20/24 02/24/24 Rx metroNIDAZOLE [Flagyl] 500 mg PO TID #30 tab 02/20/24 02/24/24 Rx ALPRAZolam [Xanax] 1 mg PO TID@0800,1400,199902/24/24 02/24/24 History INSULIN ASPART (NovoLOG) [NovoLOG See Protocol SQ ACHS 02/24/24 02/24/24 History (formulary)] oxyCODONE HCL [Oxycodone HCl] 15 mg PO Q6H PRN MDD 60MG 02/24/24 02/24/24 History Allergies Allergy/AdvReac Type Severity Reaction Status Date / Time divalproex sodium Allergy Rapid Verified 02/24/24 14:43 [From Depakote] Heart Rate Penicillins Allergy Anaphylaxis Verified 02/24/24 14:43 Surgical - Exam Vital Signs Temp Pulse Resp BP Pulse Ox 98.1 F 80 18 121/86 96 02/24/24 10:49 02/24/24 10:49 02/24/24 10:49 02/24/24 10:49 02/24/24 10:49 Results - Labs 02/24/24 11:39 02/24/24 11:39
[2024-02-25] MEDS: MORPHINE SULFATE 2 MG/ML SYRINGE IVP PRN (14:33)
[2024-02-25] MEDS: ALPRAZolam 1 MG TAB PO SCH (14:33)
[2024-02-25] MEDS: metroNIDAZOLE 500 MG TAB PO SCH (16:45)
[2024-02-25] MEDS: LINEZOLID 600 MG TAB PO SCH (16:45)
[2024-02-25] MEDS: 0.9% NACL WITH KCL 20 MEQ/L 1,000 ML IV SCH (18:27)
[2024-02-25] MEDS: INSULIN ASPART (NovoLOG) 100 UNIT/ML VIAL SQ SCH (18:28)
[2024-02-25 20:17] LABS: Basophils # (A) 0.1 k/uL (0-0.2); Basophils % (A) 1 %; Eosinophils # (A) 0.3 k/uL (0-0.7); Eosinophils % (A) 3 %; HCT 30.4 % (39.0-53.0); HGB 9.6 gm/dL (13.0-17.5); Hypochromasia Slight; Lymphocytes # (A) 1.8 k/uL (1.0-4.8); Lymphocytes % (A) 20 %; MCH 30.5 pg (25.0-35.0); MCHC 31.6 g/dL (31.0-37.0); MCV 96.5 fL (80.0-100.0); Mean Platelet Volume 8.1; Monocytes # (A) 0.8 k/uL (0-1.0); Monocytes % (A) 9 %; Neutrophils # (A) 5.9 k/uL (1.3-7.7); Neutrophils % (A) 65 %; Platelet Count 419 k/uL (150-450); RBC 3.15 m/uL (4.30-5.90); RDW 15.4 % (11.5-15.5); WBC 9.2 k/uL (3.8-10.6)
[2024-02-25 20:19] LABS: African American GFR (CKD) >90 (>60 ml/min/1.73 sqM); Anion Gap 5 mmol/L; Blood Urea Nitrogen 16 mg/dL (9-20); Calcium 8.8 mg/dL (8.4-10.2); Carbon Dioxide 26 mmol/L (22-30); Chloride 102 mmol/L (98-107); Glucose 85 mg/dL (74-99); Magnesium 1.4 mg/dL (1.6-2.3); Non-African American GFR(CKD) >90 (>60 ml/min/1.73 sqM); Potassium 4.7 mmol/L (3.5-5.1); Sodium 133 mmol/L (137-145)
[2024-02-25] MEDS: MELATONIN 5 MG TABLET PO SCH (20:45)
[2024-02-25] MEDS: MORPHINE SULFATE ER 15 MG TABLET PO SCH (20:46)
[2024-02-25] MEDS: PREGABALIN 75 MG CAP PO SCH (20:46)
[2024-02-25] MEDS: CEFDINIR 300 MG CAP PO SCH (20:52)
[2024-02-25] MEDS: HEPARIN SODIUM,PORCINE 5,000 UNIT/ML 1 ML VIAL SQ SCH (21:03)
[2024-02-25] MEDS: IPRATROPIUM-ALBUTEROL 3 ML NEB INHALATION SCH (21:17)
[2024-02-26 06:08] LABS: Glucose,Whole Blood 83 mg/dL (70-110)
--- NOTE | 2024-02-26 07:01 | P.CONS ---
History of Present Illness - Reason for Consult Consult date: 02/25/24 Recent perforated diverticulitis Requesting physician: Yogesh Nolen - Chief Complaint Abdominal pain x few days - History of Present Illness Patient is a 53-year-old male with a past medical history significant for diabetes mellitus hypertension [facility] had a CVA TIA history of brain aneurysm chronic back pain with a recent admission to the hospital with perfo rated diverticulitis intra-abdominal abscess status post laparotomy drainage of the abscess and colostomy abdominal cultures initially positive for VRE Hamida albicans/glabrata patient has been on IV antibiotic as well as antifungal subsequently did have a CT with evidence of intra-abdominal fluid collection suspicious for an abscess which did grew VRE patient antibiotic has been adjusted and the patient white count was down and repeat CT before discharge overall decrease in the size of the fluid collection patient was [facility] the local [facility] on oral Zyvox Ceftin and Flagyl and they refused to pay for the Eraxis it was discontinued as the patient is here about close to 3-week course, patient apparently signed out of the facility a day after he was there and now presenting to [facility] ER yesterday morning for evaluation of abdominal and back pain patient complaining of increasing pain similar to be sharp moderate intensity without any radiation and unable to manage his wound care at home patient on presentation to the hospital was afebrile and no fever has been requiring subsequently patient was not tachycardic hypotensive or hypoxic he did have a white count of 13 point 7 repeat is down to 9.2 creatinine 0.62 liver isms are normal blood cultures obtained which are currently pending patient did have a abdominal pelvis CT resolution of the abscess anterior to the urinary bladder however no change in the lateral perihepatic fluid collection and anterior drainage catheter infectious he was consulted for further management of antibiotic therapy Review of Systems Positive point and negatives has been mentioned in the HPI, complete review of systems was performed and all other systems are negative Past Medical History Past Medical History: CVA/TIA, Diabetes Mellitus, Hypertension, Myocardial Infarction ([place]), Osteoarthritis (OA) Additional Past Medical History / Comment(s): CVA x3 with TIA, 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, frequent falls Last Myocardial Infarction Date:: 2018 History of Any Multi-Drug Resistant Organisms: VRE Year Discovered:: 01/31/24 MDRO Source:: Wound-site not specified Past Surgical History: Back Surgery, Bowel Resection, Heart Catheterization With Stent, Joint Replacement Additional Past Surgical History / Comment(s): Brain surgery, T-9 to T-10 autofusion, T-11 to S-1 fusion, L-2 compression fracture, S-1 hardware failure, (R) knee replacement, 01/25/2024 (sepsis) sigmoid diverticulitis/abcess with perforated bowel-ostomy Past Anesthesia/Blood Transfusion Reactions: No Reported Reaction Date of Last Stent Placement:: 2018 Past Psychological History: Anxiety, Bipolar, Depression Smoking Status: Former smoker Past Alcohol Use History: None Reported Past Drug Use History: None Reported Medications and Allergies Home Medications Medication Instructions Recorded Confirmed Type Acetaminophen [Tylenol Arthritis] 650 mg PO Q8H PRN 01/25/24 02/24/24 History Cholecalciferol (Vitamin D3) 75 mcg PO HS 01/25/24 02/24/24 History [Vitamin D3 (3000 Iu)] Meclizine HCl [Dramamine] 25 mg PO TID PRN 01/25/24 02/24/24 History Melatonin 5 mg PO HS 01/25/24 02/24/24 History methocarbamoL [Robaxin-750] 750 mg PO TID PRN 01/25/24 02/24/24 History Heparin Sodium,Porcine (1 ml) 5,000 unit SQ Q12HR each 02/15/24 02/24/24 Rx [Heparin Sodium] Pantoprazole [Protonix] 40 mg PO AC-BRKFST tab 02/15/24 02/24/24 Rx Pregabalin [Lyrica] 150 mg PO BID #4 cap MDD 300mg 02/15/24 02/24/24 Rx Ipratropium-Albuterol Nebulize 3 ml INHALATION RT-TID each 02/20/24 02/24/24 Rx [Duoneb 0.5 mg-3 mg/3 ml Soln] Linezolid [Zyvox] 600 mg PO Q12H 10 Days #20 tab 02/20/24 02/24/24 Rx Morphine Sulfate ER [Ms Contin] 15 mg PO Q12HR #4 tab 02/20/24 02/24/24 Rx cefUROXime axetiL [Ceftin] 500 mg PO BID 10 Days #20 tab 02/20/24 02/24/24 Rx metroNIDAZOLE [Flagyl] 500 mg PO TID #30 tab 02/20/24 02/24/24 Rx ALPRAZolam [Xanax] 1 mg PO TID@0800,1400,2000 02/24/24 02/24/24 History INSULIN ASPART (NovoLOG) [NovoLOG See Protocol SQ ACHS 02/24/24 02/24/24 History (formulary)] oxyCODONE HCL [oxyCODONE HCL (IR)] 15 mg PO Q6H PRN MDD 60MG 02/24/24 02/24/24 History Linezolid [Zyvox] 600 mg PO Q12H 10 Days #20 tab 02/27/24 Rx cefUROXime axetiL [Ceftin] 500 mg PO BID 10 Days #20 tab 02/27/24 Rx metroNIDAZOLE [Flagyl] 500 mg PO TID 10 Days #30 tab 02/27/24 Rx Allergies Allergy/AdvReac Type Severity Reaction Status Date / Time divalproex sodium Allergy Rapid Verified 02/24/24 14:43 [From Depakote] Heart Rate Penicillins Allergy Anaphylaxis Verified 02/24/24 14:43 Physical Exam Vitals: Vital Signs Temp Pulse Pulse Resp BP BP Pulse Ox 02/25/24 14:05 98.5 F 72 18 156/83 97 02/25/24 07:37 98.4 F 72 19 125/73 96 02/25/24 01:52 98.6 F 77 18 125/67 95 02/24/24 18:51 98.1 F 80 16 125/74 97 02/24/24 18:15 79 18 133/64 96 Intake and Output 02/25/24 02/25/24 02/25/24 06:59 14:59 22:59 Output Total 1050 800 Balance -1050 -800 Output: Gastric Drainage 400 Urine 650 800 Other: Voiding Method Urinal GENERAL DESCRIPTION: Middle-aged male lying in bed, no distress. No tachypnea or accessory muscle of respiration use. HEENT: Shows Pallor , no scleral icterus. Oral mucous membrane is dry. No pharyngeal erythema or thrush NECK: Trachea central, no thyromegaly. LUNGS: Unlabored breathing. Clear to auscultation anteriorly. No wheeze or crackle. HEART: S1, S2, regular rate and rhythm. No loud murmur ABDOMEN: Soft, mild tenderness incision intact output in colostomy EXTREMITIES: No edema of feet. SKIN: No rash, no masses palpable. NEUROLOGICAL: The patient is awake, alert, oriented x3, mood and affect normal. Results CBC & Chem 7: 02/25/24 19:53 02/25/24 19:53 Assessment and Plan (1) Diverticulitis Status: Acute Code(s): K57.92 - DVTRCLI OF INTEST, PART UNSP, W/O PERF OR ABSCESS W/O BLEED SNOMED Code(s): 447984649 (2) Intra-abdominal abscess Status: Acute Code(s): K65.1 - PERITONEAL ABSCESS SNOMED Code(s): 09303275 (3) Penicillin allergy Status: Acute Code(s): Z88.0 - ALLERGY STATUS TO PENICILLIN SNOMED Code(s): 92209841 Plan: 1patient presented hospital with abdominal pain also noticed to have elevated white count in this patient with recent complicated history of perforated diverticulitis with an abscess culture positive for VRE Hamida albicans and glabrata in this patient with noncompliance to the discharge instruction and apparently signed out from local prison and has not been taking his antibiotic, patient did have a CT on elevation with tissues resolution of the abscess of the bladder still right diabetic abscess remains and the drainage catheter currently not working. 2await IR evaluation of the drainage catheter with any need to be flushed or replaced if it is replaced/culture should be obtained. 3the patient white count normalized at this morning with the Zyvox Ceftin and Flagyl to continue. Multiple question concern answered we will follow on clinical condition and cultures to further adjust medication if needed Thank you for this consultation we will follow the patient along with you Dictation was produced using [employer] dictation software. please excuse any grammatical, word or spelling errors. Time with Patient: Greater than 30
[2024-02-26 11:48] LABS: Glucose,Whole Blood 94 mg/dL (70-110)
--- NOTE | 2024-02-26 12:04 | P.PN ---
Subjective Progress Note Date: 02/26/24 patient 53-year-old gentleman with past medical history significant for recent admission for perforated diverticulitis, requiring surgical intervention with exploratory laparotomy, Preeti procedure, sigmoid resection and descending colostomy, patient also ended up having abscess formation that required drainage by IR. Patient was discharged on antibiotics per ID. Patient was only discharged 4 days ago, ever since his discharge he states that he is having more pain, denies any fever or chills. There is no current nausea or vomiting. Denies any chest pain or shortness of breath. Patient was unable to take care of his wound and ostomy at home. Because of this, he came back to the ER Initial lab work done in the ER showed BBC 13.7, hemoglobin 10.2, platelet count 565, sodium 131, potassium 4.8, BUN 31, creatinine 0.83, lactate 1.2, AST 30, ALT 133, alk phos 177 Chest x-ray done in the ER no acute cardiopulmonary process CT abdominal pelvis done showed no change in the lateral perihepatic fluid collection and drainage catheter. Resolution of the abscess anterior to the urinary bladder but no change in the pigtail drainage catheter. Mild to distal small bowel obstruction Patient admitted to general surgery 02/25. Patient seen and examined. Complaining of back pain. ID evaluated the patient, currently on Flagyl, Zyvox, cefdinir. Denies any nausea or vomiting REVIEW OF SYSTEMS: CONSTITUTIONAL: No fever, no malaise,. CARDIOVASCULAR: No chest pain, no palpitations, no syncope. PULMONARY: No shortness of breath, no cough, GASTROINTESTINAL: No diarrhea, no nausea, no vomiting, no abdominal pain. NEUROLOGICAL: No headaches, no weakness, PHYSICAL EXAMINATION: GENERAL: The patient is alert and oriented x3, ill looking HEENT: Pupils are round and equally reacting to light. EOMI. No scleral icterus. No conjunctival pallor. Normocephalic, atraumatic. No pharyngeal erythema. No thyromegaly. CARDIOVASCULAR: S1 and S2 present. No murmurs, rubs, or gallops. PULMONARY: Chest is clear to auscultation, no wheezing or crackles. ABDOMEN: Laparotomy surgical incision seen, ostomy seen, drains in place MUSCULOSKELETAL: No joint swelling or deformity. EXTREMITIES: No cyanosis, clubbing, or pedal edema. NEUROLOGICAL: Gross neurological examination did not reveal any focal deficits. SKIN: No rashes. Assessment and plan Small bowel obstruction Recent acute diverticulitis with perforation and localized abscess s/p surgical intervention exploratory laporotomy, Huntley's procedure, sigmoid resection and descending colostomy and drainage of intra-abdominal abscess on 01/30 with progression noted on repeat CT imaging on 02/11/2024 for new abscess formation Status post abscess drainage with drainage tube placement with interventional radiology Sepsis secondary to intra-abdominal infection with multidrug resistance noted on the cultures including Enterococcus faecium VRE, Hamida Diabetes mellitus type 2 Chronic back pain with degenerative disease of lumbar spine History of hypertension chronic pain syndrome Hx of coronary artery disease with prior PCI. Anxiety Monitor vital signs Monitor CBC Monitor CMP Continue IV fluids continue pain management Monitor blood sugar level, continue sliding scale insulin Continue Flagyl, Zyvox, cefdinir ID following Surgery following Labs and medication were reviewed.. Continue same treatment. Continue with symptomatic treatment. Resume home medication. Monitor labs and vitals. DVT and GI prophylaxis. Further recommendations as per clinical course of the patient Dictation was produced using [employer] dictation software. please excuse any grammatical, word or spelling errors. Objective - Vital Signs Vital signs: Vital Signs Temp 98.4 F 02/26/24 07:21 Pulse 76 02/26/24 10:00 Resp 17 02/26/24 07:21 BP 138/74 02/26/24 07:21 Pulse Ox 97 02/26/24 07:21 FiO2 Intake & Output 02/25/24 02/26/24 02/26/24 18:59 06:59 18:59 Output Total 1500 1700 Balance -1500 -1700 Output: Gastric Drainage 650 Drainage 50 Left Abdomen 10 Right Abdomen 40 Urine 800 1700 Other: Voiding Method Urinal # Voids 1 - Labs CBC & Chem 7: 02/25/24 19:53 02/25/24 19:53 Labs: Abnormal Lab Results - Last 24 Hours (Table) 02/25/24 02/25/24 Range/Units 19:53 19:53 RBC 3.15 L (4.30-5.90) m/uL Hgb 9.6 L (13.0-17.5) gm/dL Hct 30.4 L (39.0-53.0) % Sodium 133 L (137-145) mmol/L Creatinine 0.62 L (0.66-1.25) mg/dL Magnesium 1.4 L (1.6-2.3) mg/dL Microbiology - Last 24 Hours (Table) 02/24/24 14:45 Blood Culture - Preliminary Blood 02/24/24 14:30 Blood Culture - Preliminary Blood
[2024-02-26 17:56] LABS: Glucose,Whole Blood 102 mg/dL (70-110)
[2024-02-26] MEDS: INSULIN ASPART (NovoLOG) 100 UNIT/ML VIAL SQ SCH (17:59)
[2024-02-26 20:03] LABS: Glucose,Whole Blood 115 mg/dL (70-110)
[2024-02-26] MEDS: MAGNESIUM SULFATE-D5W PMX 1 GM in DEXTROSE/WATER 1 100ML.BAG IVPB SCH (21:07)
[2024-02-27] MEDS: methocarbamoL 750 MG TAB PO PRN (06:43)
[2024-02-27 07:30] LABS: Glucose,Whole Blood 99 mg/dL (70-110)
[2024-02-27 07:41] VITALS: RESP 16
[2024-02-27 11:53] LABS: Glucose,Whole Blood 103 mg/dL (70-110)
[2024-02-27 12:42] VITALS: BP 144/92; PULSE 87; TEMP 98.2
--- NOTE | 2024-02-27 15:15 | P.DS ---
Providers Date of admission: 02/24/24 14:18 Expected date of discharge: 02/27/24 Attending physician: Misti Kincaid Consults: 02/24/24 13:55 Consult Physician Urgent Consulting Provider: Janelle Neff Consult Reason/Comments: distal small bowel obstruction Do you want consulting provider notified?: Yes 02/25/24 13:40 Consult Physician Routine Consulting Provider: Karla López Consult Reason/Comments: Recent perforated diverticulitis, evaluate for antibiotic Do you want consulting provider notified?: Yes Primary care physician: Joel Mahmood MD Hospital Course: Discharge diagnosis 1. Small bowel obstruction due to adhesions 2. 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 Fluid collection present on CT 3. Chronic pain due to chronic lower back pain Hospital course This is a 53-year-old male with history of perforated diverticulitis.Patient had developed sepsis and peritonitis requiring diverting colostomy and evacuation of fecal peritonitis 01/31/2024. Patient had been having feculent emesis at home. Came into ER and found to have a small bowel obstruction. NG tube was placed. Patient's ostomy is functioning. Bowel obstruction managed conservatively. CT scan had also reported the fluid collection. Abdominal drains will remain in place. Infectious disease recommends an additional 10 more days of the oral ant ibiotics. Patient's pain is controlled. Ostomy is functioning. He is afebrile. He is able to ambulate. He is stable for discharge. Physician Performance Improvement Specialist note has been reviewed by physician. Signing provider agrees with the documented findings, assessment, and plan of care. Patient Condition at Discharge: Stable Plan - Discharge Summary Discharge Rx Participant: No New Discharge Prescriptions: New metroNIDAZOLE [Flagyl] 500 mg PO TID 10 Days #30 tab Linezolid [Zyvox] 600 mg PO Q12H 10 Days #20 tab cefUROXime axetiL [Ceftin] 500 mg PO BID 10 Days #20 tab Continue Cholecalciferol (Vitamin D3) [Vitamin D3 (3000 Iu)] 75 mcg PO HS methocarbamoL [Robaxin-750] 750 mg PO TID PRN PRN Reason: Muscle Spasm Pregabalin [Lyrica] 150 mg PO BID #4 cap MDD 300mg metroNIDAZOLE [Flagyl] 500 mg PO TID #30 tab Linezolid [Zyvox] 600 mg PO Q12H 10 Days #20 tab oxyCODONE HCL [oxyCODONE HCL (IR)] 15 mg PO Q6H PRN MDD 60MG PRN Reason: Moderate Pain (Scale 4 To 6) INSULIN ASPART (NovoLOG) [NovoLOG (formulary)] See Protocol SQ ACHS Melatonin 5 mg PO HS Acetaminophen [Tylenol Arthritis] 650 mg PO Q8H PRN PRN Reason: Pain Meclizine HCl [Dramamine] 25 mg PO TID PRN PRN Reason: Motion Sickness Heparin Sodium,Porcine (1 ml) [Heparin Sodium] 5,000 unit SQ Q12HR each Pantoprazole [Protonix] 40 mg PO AC-BRKFST tab Ipratropium-Albuterol Nebulize [Duoneb 0.5 mg-3 mg/3 ml Soln] 3 ml INHALATION RT-TID each Morphine Sulfate ER [Ms Contin] 15 mg PO Q12HR #4 tab cefUROXime axetiL [Ceftin] 500 mg PO BID 10 Days #20 tab ALPRAZolam [Xanax] 1 mg PO TID@0800,1400,1999 Discharge Medication List Acetaminophen [Tylenol Arthritis] 650 mg PO Q8H PRN 01/25/24 [History] Cholecalciferol (Vitamin D3) [Vitamin D3 (3000 Iu)] 75 mcg PO HS 01/25/24 [History] Meclizine HCl [Dramamine] 25 mg PO TID PRN 01/25/24 [History] Melatonin 5 mg PO HS 01/25/24 [History] methocarbamoL [Robaxin-750] 750 mg PO TID PRN 01/25/24 [History] Heparin Sodium,Porcine (1 ml) [Heparin Sodium] 5,000 unit SQ Q12HR each 02/14 [Rx] Pantoprazole [Protonix] 40 mg PO AC-BRKFST tab 02/15/24 [Rx] Pregabalin [Lyrica] 150 mg PO BID #4 cap MDD 300mg 02/15/24 [Rx] Ipratropium-Albuterol Nebulize [Duoneb 0.5 mg-3 mg/3 ml Soln] 3 ml INHALATION RT-TID each 02/20/24 [Rx] Linezolid [Zyvox] 600 mg PO Q12H 10 Days #20 tab 02/20/24 [Rx] Morphine Sulfate ER [Ms Contin] 15 mg PO Q12HR #4 tab 02/20/24 [Rx] cefUROXime axetiL [Ceftin] 500 mg PO BID 10 Days #20 tab 02/20/24 [Rx] metroNIDAZOLE [Flagyl] 500 mg PO TID #30 tab 02/20/24 [Rx] ALPRAZolam [Xanax] 1 mg PO TID@0800,1400,2000 02/24/24 [History] INSULIN ASPART (NovoLOG) [NovoLOG (formulary)] See Protocol SQ ACHS 02/24/24 [History] oxyCODONE HCL [oxyCODONE HCL (IR)] 15 mg PO Q6H PRN MDD 60MG 02/24/24 [History] Linezolid [Zyvox] 600 mg PO Q12H 10 Days #20 tab 02/27/24 [Rx] cefUROXime axetiL [Ceftin] 500 mg PO BID 10 Days #20 tab 02/27/24 [Rx] metroNIDAZOLE [Flagyl] 500 mg PO TID 10 Days #30 tab 02/27/24 [Rx] Follow up Appointment(s)/Referral(s): Misti Kincaid MD [STAFF PHYSICIAN] - 03/04/24 [facility], [NON-STAFF] - As Needed Joel Mahmood MD [Primary Care Provider] - 1-2 days Activity/Diet/Wound Care/Special Instructions: keep drains in place. Home care to change drain dressings. ok to shower Discharge Disposition: HOME WITH HOME HEALTH SERVICES
--- NOTE | 2024-02-27 17:28 | P.PN ---
Subjective Progress Note Date: 02/26/24 Principal diagnosis: Reason for follow-up is intra-abdominal abscess Patient is a 53-year-old male with a past medical history significant for diabetes mellitus hypertension [facility] hospital had a CVA TIA history of brain aneurysm chronic back pain with a recent admission to the hospital with perforated diverticulitis intra-abdominal abscess status post laparotomy drainag e of the abscess and colostomy abdominal cultures initially positive for VRE Hamida albicans/glabrata, after stabilization the patient was discharged to custodial on oral Zyvox Ceftin and Flagyl on but the patient apparently signed out AMA and presented back to the hospital with abdominal pain CT abdominal pelvis tissues oral resolution of the abscess around the bladder however there was no change in the lateral perihepatic fluid collection. On today's evaluation that is 02/26/2024,the patient remains to be afebrile, patient is on room air not requiring supplemental oxygen and denies any s hortness of breath no chest pain or cough.Patient denies having any nausea or vomiting, no abdominal pain and did have output in his colostomy bag and his drainage catheter. Patient white count normalized to 9.2 as of yesterday no CBC was done today Objective - Vital Signs Vital signs: Vital Signs Temp 98.0 F 02/26/24 20:00 Pulse 80 02/26/24 20:22 Resp 20 02/26/24 20:00 BP 131/85 02/26/24 20:00 Pulse Ox 96 02/26/24 20:00 FiO2 Intake & Output 02/26/24 02/26/24 02/27/24 06:59 18:59 06:59 Output Total 1700 450 Balance -1700 -450 Output: Urine 1700 450 Other: Voiding Method Urinal - Exam GENERAL DESCRIPTION: Middle-age rly male lying in bed in no distress RESPIRATORY SYSTEM: Unlabored breathing , decreased breath sounds at bases HEART: S1 S2 regular rate and rhythm , ABDOMEN: Soft , no tenderness, patient did have some serosanguineous drainage in the drainage catheter/bag EXTREMITIES: No edema feet - Labs CBC & Chem 7: 02/25/24 19:53 02/25/24 19:53 Labs: Abnormal Lab Results - Last 24 Hours (Table) 02/26/24 Range/Units 19:47 POC Glucose (mg/dL) 115 H (70-110) mg/dL Microbiology - Last 24 Hours (Table) 02/24/24 14:45 Blood Culture - Preliminary Blood 02/24/24 14:30 Blood Culture - Preliminary Blood Assessment and Plan (1) Intra-abdominal abscess Status: Acute Code(s): K65.1 - PERITONEAL ABSCESS SNOMED Code(s): 55748915 (2) VRE (vancomycin resistant enterococcus) culture positive Status: Acute Code(s): Z22.39 - CARRIER OF OTHER SPECIFIED BACTERIAL DISEASES SNOMED Code(s): 274477063 (3) Penicillin allergy Status: Acute Code(s): Z88.0 - ALLERGY STATUS TO PENICILLIN SNOMED Code(s): 02111463 Plan: 1patient presented hospital with abdominal pain also noticed to have elevated white count in this patient with recent complicated history of perforated diverticulitis with an abscess culture positive for VRE Hamida albicans and glabrata in this patient with noncompliance to the discharge instruction and apparently signed out from local custodial and has not been taking his antibiotic, patient did have a CT on elevation with tissues resolution of the abscess of the bladder still right diabetic abscess remains and the drainage catheter currently not working. 2patient will benefit from IR evaluation of the drainage catheter with any need to be flushed or replaced if it is replaced/culture should be obtained. 3the patient white count normalized and will continue the Zyvox Ceftin and Flagyl and monitor clinical course closely Dictation was produced using [employer] dictation software. please excuse any grammatical, word or spelling errors. Time with Patient: Less than 30
--- NOTE | 2024-02-27 17:29 | P.PN ---
Subjective Progress Note Date: 02/27/24 Principal diagnosis: Reason for follow-up is intra-abdominal abscess Patient is a 53-year-old male with a past medical history significant for diabetes mellitus hypertension [facility] hospital had a CVA TIA history of brain aneurysm chronic back pain with a recent admission to the hospital with perforated diverticulitis intra-abdominal abscess status post laparotomy drainag e of the abscess and colostomy abdominal cultures initially positive for VRE Hamida albicans/glabrata, after stabilization the patient was discharged to assisted on oral Zyvox Ceftin and Flagyl on but the patient apparently signed out AMA and presented back to the hospital with abdominal pain CT abdominal pelvis tissues oral resolution of the abscess around the bladder however there was no change in the lateral perihepatic fluid collection. On today's evaluation that is 02/27/2024, the patient continues to be afebrile, the patient is on room air and breathing comfortably, the Pt denies having any chest pain or cough, the patient denies having any abdominal pain no vomiting did have output in his drainage catheter and output in his colostomy bag. Patient mentioned his drainage catheter has been flushed and then however now draining No new labs has been obtained today culture has been negative Objective - Vital Signs Vital signs: Vital Signs Temp 98.2 F 02/27/24 11:47 Pulse 87 02/27/24 11:47 Resp 16 02/27/24 11:47 BP 144/92 02/27/24 11:47 Pulse Ox 98 02/27/24 11:47 FiO2 Intake & Output 02/26/24 02/27/24 02/27/24 18:59 06:59 18:59 Output Total 450 1500 Balance -450 -1500 Output: Urine 450 1500 Other: Voiding Method Urinal Urinal Urinal - Exam GENERAL DESCRIPTION: Middle-age rly male lying in bed in no distress RESPIRATORY SYSTEM: Unlabored breathing , decreased breath sounds at bases HEART: S1 S2 regular rate and rhythm , ABDOMEN: Soft , no tenderness, patient did have some serosanguineous drainage in the drainage catheter/bag EXTREMITIES: No edema feet - Labs CBC & Chem 7: 02/25/24 19:53 02/25/24 19:53 Labs: Abnormal Lab Results - Last 24 Hours (Table) 02/26/24 Range/Units 19:47 POC Glucose (mg/dL) 115 H (70-110) mg/dL Microbiology - Last 24 Hours (Table) 02/24/24 14:45 Blood Culture - Preliminary Blood 02/24/24 14:30 Blood Culture - Preliminary Blood Assessment and Plan (1) Intra-abdominal abscess Status: Acute Code(s): K65.1 - PERITONEAL ABSCESS SNOMED Code(s): 53173037 (2) Penicillin allergy Status: Acute Code(s): Z88.0 - ALLERGY STATUS TO PENICILLIN SNOMED Code(s): 76036109 (3) VRE (vancomycin resistant enterococcus) culture positive Status: Acute Code(s): Z22.39 - CARRIER OF OTHER SPECIFIED BACTERIAL DISEASES SNOMED Code(s): 814675156 Plan: 1patient presented hospital with abdominal pain also noticed to have elevated w kaylin count in this patient with recent complicated history of perforated diverticulitis with an abscess culture positive for VRE Hamida albicans and glabrata in this patient with noncompliance to the discharge instruction and apparently signed out from local assisted and has not been taking his antibiotic, patient did have a CT on elevation with tissues resolution of the abscess of the bladder still right diabetic abscess remains and the drainage catheter currently not working. 2the patient white count normalized, he will benefit from manipulation of the drainage catheter on the right side to let the fluid drain out for now we will continue the Zyvox Ceftin and Flagyl and monitor clinical course closely Dictation was produced using [employer] dictation software. please excuse any gramma tical, word or spelling errors.
== END 2024-02-27 17:23 | disposition home health service (06) | DRG 388 ==
LOC: EC 10:43 → 4SSUR 14:18 → 5NMEDONC 02-26 18:25
PROVIDERS: ADMIT Surgery Plastic and Reconstructive Surgery; ATTEND Surgery Plastic and Reconstructive Surgery
DX: K56.50 Intestinal adhesions [bands], unspecified as to partial versus complete obstruction (principal); K65.1 Peritoneal abscess; K57.00 Diverticulitis of small intestine with perforation and abscess without bleeding; Z16.21 Resistance to vancomycin; E87.1 Hypo-osmolality and hyponatremia; T85.698A Other mechanical complication of other specified internal prosthetic devices, implants and grafts, initial encounter; F41.9 Anxiety disorder, unspecified; I10 Essential (primary) hypertension; G89.4 Chronic pain syndrome; M51.36 Other intervertebral disc degeneration, lumbar region; I25.10 Atherosclerotic heart disease of native coronary artery without angina pectoris; E11.9 Type 2 diabetes mellitus without complications; Z96.651 Presence of right artificial knee joint; B95.2 Enterococcus as the cause of diseases classified elsewhere; F31.9 Bipolar disorder, unspecified; Z87.891 Personal history of nicotine dependence; Z95.5 Presence of coronary angioplasty implant and graft; Z86.73 Personal history of transient ischemic attack (TIA), and cerebral infarction without residual deficits; Z79.899 Other long term (current) drug therapy; Z79.4 Long term (current) use of insulin; I25.2 Old myocardial infarction; Z88.0 Allergy status to penicillin; Z88.8 Allergy status to other drugs, medicaments and biological substances; Z93.3 Colostomy status
CPT/HCPCS: 36415; 71045; 74176; 80048; 80053; 83036; 83605; 83690; 83735; 85025; 87040; 94640; 96365; 96366; 96367; 96375; 96376; 99285

== ENCOUNTER 2024-03-07 13:13 | Day surgery (SDC) | payer MEDICARE ==
[2024-03-07 15:43] VITALS: BP 148/101; PULSE 71; RESP 16; TEMP 98.1
== END 2024-03-07 14:25 | disposition home or self-care (01) ==
LOC: RADPROMAIN 13:13
PROVIDERS: ATTEND Radiology Body Imaging
DX: Z48.03 Encounter for change or removal of drains (principal); L02.91 Cutaneous abscess, unspecified
CPT/HCPCS: 99213

== ENCOUNTER 2024-03-14 13:07 | Day surgery (SDC) | payer MEDICARE ==
[2024-03-14 13:38] VITALS: BP 106/65; PULSE 68; RESP 16; TEMP 98.4
== END 2024-03-14 13:40 | disposition home or self-care (01) ==
LOC: RADPROMAIN 13:07
PROVIDERS: ATTEND Radiology Body Imaging
DX: Z48.03 Encounter for change or removal of drains (principal); L02.91 Cutaneous abscess, unspecified
CPT/HCPCS: 99213

== ENCOUNTER → 2024-03-19 | Outpatient (CLI) | payer MEDICARE ==
[2024-03-19 16:51] LABS: African American GFR (CKD) >90 (>60 ml/min/1.73 sqM); Blood Urea Nitrogen 18 mg/dL (9-20); Non-African American GFR(CKD) >90 (>60 ml/min/1.73 sqM)
--- NOTE | 2024-03-19 19:09 | CT ---
EXAMINATION TYPE: CT abdomen pelvis w con DATE OF EXAM: 03/19/2024 COMPARISON: 02/24/2024 HISTORY: 53-year-old male K57.32 abdominal pain, hx of diverticulitis and sepsis TECHNIQUE: Contiguous axial scanning of the abdomen and pelvis following administration of 100 ml Iso saul 300 IV contrast. Delayed images through the kidneys and coronal/sagittal reconstructions perform ed. CT DLP: 1652 mGycm Automated exposure control for dose reduction was used. FINDINGS: Heart normal size without pericardial effusion. Extensive three-vessel coronary artery calcifications are present. Residual patchy opacity at the periphery of the right base without pleural effusion. Some calcified p leural plaque noted at the posterior right base. Redemonstrated perihepatic fluid collection at the lateral right hepatic dome. This currently measure s 5.3 x 5.0 x 2.4 cm. In comparison to 9.4 x 8.0 x 3.5 cm, previously. The second fluid collection along the right paracolic gutter possibly within communication with the f irst collection currently measures 5.3 x 5.2 x 2.0 cm. This is in comparison to 8.5 x 8.6 x 2.8 cm, p reviously. The previous pigtail drainage catheter has been removed from here in the interval. The third fluid collection within the lower abdomen and pelvis is smaller as well currently 6.2 x 5.5 x 1.7 cm. In comparison to 8.7 x 10.6 x 2.2 cm, previously. The previous drainage catheter has been removed. Portal venous system is patent. No biliary ductal dilatation. Phrygian cap noted and no abnormal gallbladder distention. Adrenal glands, right kidney, spleen, pancreas show no gross abnormality. There is a 2.4 cm centrally located cyst upper pole left kidney and a punctate 2 mm calculus here. Scar associated with previous midline laparotomy change. No dilated small bowel, free fluid, or free air. Moderate stool burden. Sigmoid diverticulosis. There is left lower quadrant sigmoid colostomy. There is some fat stranding a t the stoma, similar to prior exam. Huntley's pouch. Moderate metastatic calcifications within the iliac arteries. No abdominal or pelvic lymphadenopathy seen. Moderate circumferential bladder wall thickening. No pelvic adenopathy seen. Bones: Moderate degenerative change of the hips. Extensive post surgical change of T11-S1 posterior lumbar fusion. Compression deformity of L2. Laminectomies from L1 through S1 levels. IMPRESSION: 1. THERE IS REDEMONSTRATION OF 3 ABNORMAL FLUID COLLECTIONS. ONE IS A SUBCAPSULAR COLLECTION ALONG TH E RIGHT HEPATIC DOME, THE SECOND IS A PERITONEAL ABSCESS ALONG THE RIGHT PARACOLIC GUTTER, AND THE TH IRD IS A PERITONEAL ABSCESS AT THE LOWER ABDOMEN AND PELVIS. THE FIRST TWO COLLECTIONS MAY HAVE THIN COMMUNICATION. THE PREVIOUS 2 DRAINAGE CATHETERS HAVE BEEN REMOVED. 2. ALL 3 OF THESE HAVE DECREASED IN SIZE WITH MEASUREMENTS ABOVE. 3. LEFT LOWER QUADRANT SIGMOID COLOSTOMY. THERE SEEMS TO BE SOME RESIDUAL MILD INFLAMMATION AT THE ST RODRÍGUE[facility]. CLINICALLY CORRELATE. 4. MODERATE CIRCUMFERENTIAL BLADDER WALL THICKENING. CORRELATE TO EXCLUDE CYSTITIS.
== END | disposition home or self-care (01) ==
LOC: RADCTMAIN 15:33
PROVIDERS: ATTEND Surgery Plastic and Reconstructive Surgery
DX: K57.32 Diverticulitis of large intestine without perforation or abscess without bleeding (principal); K65.1 Peritoneal abscess; Z93.3 Colostomy status
CPT/HCPCS: 82565; 84520; 74177; 36415; Q9967

== ENCOUNTER 2024-03-23 19:19 | Inpatient (IN) | payer MEDICARE ==
[2024-03-23] MEDS: ONDANSETRON 4 MG/2 ML VIAL IVP STA (20:31)
[2024-03-23] MEDS: MORPHINE SULFATE 4 MG/ML SYRINGE IVP STA (20:32)
[2024-03-23] MEDS: SODIUM CHLORIDE 0.9% 1,000 ML IV STA (20:32)
--- NOTE | 2024-03-23 20:51 | ED ---
Abdominal Pain HPI - General Chief Complaint: Abdominal Pain Stated Complaint: back pain,sepsis Time Seen by Provider: 03/23/24 19:30 Source: family Mode of arrival: wheelchair Limitations: no limitations - History of Present Illness Initial Comments: 53-year-old male presenting with chief complaint of back pain and vomiting. Patient has chronic back pain, history of multiple back surgeries, patient is mainly over the middle of the back. No new injury or trauma. He is also complaining of nausea and vomiting. This has been ongoing for few days. He also admits to right-sided abdominal pain. He had a CT performed 4 days ago that showed decreasing size of intra-abdominal fluid collections. He states that he spoke with Dr. López this evening who told him to come to the ER as he is concerned for worsening infection. Patient has history of diverticulitis with perforation, bowel resection, currently has stoma. - Related Data Home Medications Medication Instructions Recorded Confirmed Acetaminophen [Tylenol Arthritis] 650 mg PO Q8H PRN 01/25/24 02/24/24 Cholecalciferol (Vitamin D3) 75 mcg PO HS 01/25/24 02/24/24 [Vitamin D3 (3000 Iu)] Meclizine HCl [Dramamine] 25 mg PO TID PRN 01/25/24 02/24/24 Melatonin 5 mg PO HS 01/25/24 02/24/24 methocarbamoL [Robaxin-750] 750 mg PO TID PRN 01/25/24 02/24/24 ALPRAZolam [Xanax] 1 mg PO TID@0800,1400,2000 02/24/24 02/24/24 INSULIN ASPART (NovoLOG) [NovoLOG See Protocol SQ ACHS 02/24/24 02/24/24 (formulary)] oxyCODONE HCL [oxyCODONE HCL (IR)] 15 mg PO Q6H PRN MDD 60MG 02/24/24 02/24/24 Previous Rx's Medication Instructions Recorded Heparin Sodium,Porcine (1 ml) 5,000 unit SQ Q12HR each 02/15/24 [Heparin Sodium] Pantoprazole [Protonix] 40 mg PO AC-BRKFST tab 02/15/24 Pregabalin [Lyrica] 150 mg PO BID #4 cap MDD 300mg 02/15/24 Ipratropium-Albuterol Nebulize 3 ml INHALATION RT-TID each 02/20/24 [Duoneb 0.5 mg-3 mg/3 ml Soln] Linezolid [Zyvox] 600 mg PO Q12H 10 Days #20 tab 02/20/24 Morphine Sulfate ER [Ms Contin] 15 mg PO Q12HR #4 tab 02/20/24 cefUROXime axetiL [Ceftin] 500 mg PO BID 10 Days #20 tab 02/20/24 metroNIDAZOLE [Flagyl] 500 mg PO TID #30 tab 02/20/24 Linezolid [Zyvox] 600 mg PO Q12H 10 Days #20 tab 02/27/24 cefUROXime axetiL [Ceftin] 500 mg PO BID 10 Days #20 tab 02/27/24 metroNIDAZOLE [Flagyl] 500 mg PO TID 10 Days #30 tab 02/27/24 Allergies Allergy/AdvReac Type Severity Reaction Status Date / Time divalproex sodium Allergy Rapid Verified 03/23/24 19:27 [From Depakote] Heart Rate Penicillins Allergy Anaphylaxis Verified 03/23/24 19:27 Review of Systems ROS Statement: Those systems with pertinent positive or pertinent negative responses have been documented in the HPI. ROS Other: All systems not noted in ROS Statement are negative. Past Medical History Past Medical History: CVA/TIA, Diabetes Mellitus, Hypertension, Myocardial Infarction ([place]), Osteoarthritis ([place]) Additional Past Medical History / Comment(s): CVA x3 with TIA, 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, frequent falls Last Myocardial Infarction Date:: 2018 History of Any Multi-Drug Resistant Organisms: VRE Date of last positivie culture/infection: 01/31/24 MDRO Source:: Wound-site not specified Past Surgical History: Back Surgery, Bowel Resection, Heart Catheterization With Stent, Joint Replacement Additional Past Surgical History / Comment(s): Brain surgery, T-9 to T-10 autofusion, T-11 to S-1 fusion, L-2 compression fracture, S-1 hardware failure, (R) knee replacement, 01/25/2024 (sepsis) sigmoid diverticulitis/abcess with perforated bowel-ostomy Past Anesthesia/Blood Transfusion Reactions: No Reported Reaction Date of Last Stent Placement:: 2018 Past Psychological History: Anxiety, Bipolar, Depression Smoking Status: Former smoker Past Alcohol Use History: None Reported Past Drug Use History: Marijuana General Exam Limitations: no limitations General appearance: alert, in no apparent distress Head exam: Present: atraumatic, normocephalic Eye exam: Present: normal appearance, EOMI Neck exam: Present: normal inspection. Absent: meningismus Respiratory exam: Present: normal lung sounds bilaterally. Absent: respiratory distress, wheezes, rales, rhonchi, stridor Cardiovascular Exam: Present: regular rate, normal rhythm, normal heart sounds. Absent: systolic murmur, diastolic murmur, rubs, gallop, clicks GI/Abdominal exam: Present: soft, tenderness. Absent: distended, guarding, rebound, rigid Neurological exam: Present: alert, oriented X3 Psychiatric exam: Present: normal affect, normal mood Skin exam: Present: normal color Course Vital Signs 03/23/24 03/23/24 03/23/24 19:24 22:37 23:26 Temperature 98.4 F 98.8 F Pulse Rate 80 73 80 Respiratory 18 18 18 Rate Blood Pressure 155/94 200/126 187/100 O2 Sat by Pulse 97 98 98 Oximetry 03/23/24 03/24/24 03/24/24 23:37 00:03 00:31 Temperature 98.1 F Pulse Rate 78 73 67 Respiratory 16 15 16 Rate Blood Pressure 190/104 145/82 151/89 O2 Sat by Pulse 97 96 98 Oximetry Medical Decision Making - Medical Decision Making Was pt. sent in by a medical professional or institution (DILIA Polo, COLLEGE ADMINISTRATOR, urgent care, hospital, or retirement...) When possible be specific @ -No Did you speak to anyone other than the patient for history (EMS, parent, family, police, friend...)? What history was obtained from this source @ -No Did you review nursing and triage notes (agree or disagree)? Why? @ -I reviewed and agree with nursing and triage notes Were old charts reviewed (outside hosp., previous admission, EMS record, old EKG, old radiological studies, urgent care reports/EKG's, retirement records)? Report findings @ -I reviewed the patient's CT scan from the of this month. This showed redemonstration of 3 abnormal fluid collections. They do appear to have gone down in size. Residual mild inflammation at the stoma. Moderate circumferential bladder wall thickening. Differential Diagnosis (chest pain, altered mental status, abdominal pain women, abdominal pain men, vaginal bleeding, weakness, fever, dyspnea, syncope, headache, dizziness, GI bleed, back pain, seizure, CVA, palpatations, mental health, musculoskeletal)? @ -Not applicable EKG interpreted by me (3pts min.). @ -As above X-rays interpreted by me (1pt min.). @ -None done CT interpreted by me (1pt min.). @ -None done U/S interpreted by me (1pt. min.). @ -None done What testing was considered but not performed or refused? (CT, X-rays, U/S, labs)? Why? @ -None What meds were considered but not given or refused? Why? @ -None Did you discuss the management of the patient with other professionals (professionals i.e. , PA, COLLEGE ADMINISTRATOR, lab, RT, psych nurse, social media campaign manager, telegraph service rater, teacher, chief science officer, case planner)? Give summary @ -I spoke with the [facility] provider on-call who accepted admission Was smoking cessation discussed for >3mins.? @ -No Was critical care preformed (if so, how long)? @ -No Were there social determinants of health that impacted care today? How? (H omelessness, low income, unemployed, alcoholism, drug addiction, transportation, low edu. Level, literacy, decrease access to med. care, longterm, rehab)? @ -No Was there de-escalation of care discussed even if they declined (Discuss DNR or withdrawal of care, Hospice)? DNR status @ -No What co-morbidities impacted this encounter? (DM, HTN, Smoking, COPD, CAD, Cancer, CVA, ARF, Chemo, Hep., AIDS, mental health diagnosis, sleep apnea, morbid obesity)? @ -None Was patient admitted / discharged? Hospital course, mention meds given and route, prescriptions, significant lab abnormalities, going to OR and other pertinent info. @ -53-year-old male presenting with chief complaint of nausea vomiting abdominal pain. Abdominal pain is primarily on the right side. Patient also states that his chronic pain in his back is flaring up. History and physical exam are conducted. Lab work shows no leukocytosis or anemia. Remainder of lab work requires no further action. Patient was instructed to report to the ER by Dr. López, he was told he is concerned for worsening infection based on the patient's CT results. Patient was started on antibiotics and admitted. Consults placed to general surgery and infectious disease. He is agreeable with this plan. I discussed this case with my attending Dr. Lund Undiagnosed new problem with uncertain prognosis? @ -No Drug Therapy requiring intensive monitoring for toxicity (Heparin, Nitro, Insulin, Cardizem)? @ -No Were any procedures done? @ -No Diagnosis/symptom? @ -Intra-abdominal abscess, nausea and vomiting Acute, or Chronic, or Acute on Chronic? @ -Acute Uncomplicated (without systemic symptoms) or Complicated (systemic symptoms)? @ -Complicated Side effects of treatment? @ -No Exacerbation, Progression, or Severe Exacerbation? @ -No Poses a threat to life or bodily function? How? (Chest pain, [place], [place], pneumonia, PE, COPD, DKA, ARF, appy, cholecystitis, CVA, Diverticulitis, Homicidal, Suicidal, threat to staff... and all critical care pts) @ -Yes - Lab Data Result diagrams: 03/23/24 20:31 03/23/24 20:31 Lab Results 03/23/24 03/23/24 03/23/24 Range/Units 20:31 20:31 20:31 WBC 10.5 (3.8-10.6) k/uL RBC 4.46 (4.30-5.90) m/uL Hgb 13.5 D (13.0-17.5) gm/dL Hct 43.3 (39.0-53.0) % MCV 97.0 (80.0-100.0) fL MCH 30.4 (25.0-35.0) pg MCHC 31.3 (31.0-37.0) g/dL RDW 14.8 (11.5-15.5) % Plt Count 348 (150-450) k/uL MPV 8.4 Neutrophils % 72 % Lymphocytes % 17 % Monocytes % 8 % Eosinophils % 2 % Basophils % 0 % Neutrophils # 7.5 (1.3-7.7) k/uL Lymphocytes # 1.8 (1.0-4.8) k/uL Monocytes # 0.8 (0-1.0) k/uL Eosinophils # 0.2 (0-0.7) k/uL Basophils # 0.0 (0-0.2) k/uL Sodium 135 L (137-145) mmol/L Potassium 4.1 (3.5-5.1) mmol/L Chloride 97 L (98-107) mmol/L Carbon Dioxide 29 (22-30) mmol/L Anion Gap 9 mmol/L BUN 16 (9-20) mg/dL Creatinine 0.67 (0.66-1.25) mg/dL Est GFR (CKD-EPI)AfAm >90 (>60 ml/min/1.73 sqM) Est GFR (CKD-EPI)NonAf >90 (>60 ml/min/1.73 sqM) Glucose 109 H (74-99) mg/dL Plasma Lactic Acid Collin 1.2 (0.7-2.0) mmol/L Calcium 9.8 (8.4-10.2) mg/dL Total Bilirubin 0.6 (0.2-1.3) mg/dL AST 28 (17-59) U/L ALT 14 (4-49) U/L Alkaline Phosphatase 73 (38-126) U/L Total Protein 8.2 (6.3-8.2) g/dL Albumin 4.4 (3.5-5.0) g/dL Amylase 82 (30-110) U/L Lipase 89 (23-300) U/L Urine Color Urine Appearance (Clear) Urine pH (5.0-8.0) Ur Specific [place] (1.001-1.035) Urine Protein (Negative) Urine Glucose (UA) (Negative) Urine Ketones (Negative) Urine Blood (Negative) Urine Nitrite (Negative) Urine Bilirubin (Negative) Urine Urobilinogen (<2.0) mg/dL Ur Leukocyte Esterase (Negative) Influenza Type A (PCR) (Not Detectd) Influenza Type B (PCR) (Not Detectd) RSV (PCR) (Not Detectd) SARS-CoV-2 (PCR) (Not Detectd) 03/23/24 03/23/24 Range/Units 20:31 22:44 WBC (3.8-10.6) k/uL RBC (4.30-5.90) m/uL Hgb (13.0-17.5) gm/dL Hct (39.0-53.0) % MCV (80.0-100.0) fL MCH (25.0-35.0) pg MCHC (31.0-37.0) g/dL RDW (11.5-15.5) % Plt Count (150-450) k/uL MPV Neutrophils % % Lymphocytes % % Monocytes % % Eosinophils % % Basophils % % Neutrophils # (1.3-7.7) k/uL Lymphocytes # (1.0-4.8) k/uL Monocytes # (0-1.0) k/uL Eosinophils # (0-0.7) k/uL Basophils # (0-0.2) k/uL Sodium (137-145) mmol/L Potassium (3.5-5.1) mmol/L Chloride (98-107) mmol/L Carbon Dioxide (22-30) mmol/L Anion Gap mmol/L BUN (9-20) mg/dL Creatinine (0.66-1.25) mg/dL Est GFR (CKD-EPI)AfAm (>60 ml/min/1.73 sqM) Est GFR (CKD-EPI)NonAf (>60 ml/min/1.73 sqM) Glucose (74-99) mg/dL Plasma Lactic Acid Collin (0.7-2.0) mmol/L Calcium (8.4-10.2) mg/dL Total Bilirubin (0.2-1.3) mg/dL AST (17-59) U/L ALT (4-49) U/L Alkaline Phosphatase (38-126) U/L Total Protein (6.3-8.2) g/dL Albumin (3.5-5.0) g/dL Amylase (30-110) U/L Lipase (23-300) U/L Urine Color Colorless Urine Appearance Clear (Clear) Urine pH 7.0 (5.0-8.0) Ur Specific [place] 1.009 (1.001-1.035) Urine Protein Negative (Negative) Urine Glucose (UA) Negative (Negative) Urine Ketones Negative (Negative) Urine Blood Negative (Negative) Urine Nitrite Negative (Negative) Urine Bilirubin Negative (Negative) Urine Urobilinogen <2.0 (<2.0) mg/dL Ur Leukocyte Esterase Negative (Negative) Influenza Type A (PCR) Not Detected (Not Detectd) Influenza Type B (PCR) Not Detected (Not Detectd) RSV (PCR) Not Detected (Not Detectd) SARS-CoV-2 (PCR) Not Detected (Not Detectd) Disposition Clinical Impression: Intra-abdominal abscess Disposition: ADMITTED IP TO THIS HOSP Condition: Fair Time of Disposition: 23:10
[2024-03-23 21:26] LABS: Basophils % (A) 0 %; Eosinophils # (A) 0.2 k/uL (0-0.7); Eosinophils % (A) 2 %; HCT 43.3 % (39.0-53.0); Lymphocytes # (A) 1.8 k/uL (1.0-4.8); Lymphocytes % (A) 17 %; MCH 30.4 pg (25.0-35.0); MCHC 31.3 g/dL (31.0-37.0); Mean Platelet Volume 8.4; Monocytes # (A) 0.8 k/uL (0-1.0); Monocytes % (A) 8 %; Neutrophils # (A) 7.5 k/uL (1.3-7.7); Neutrophils % (A) 72 %; Platelet Count 348 k/uL (150-450); RBC 4.46 m/uL (4.30-5.90); RDW 14.8 % (11.5-15.5); WBC 10.5 k/uL (3.8-10.6)
[2024-03-23 21:37] LABS: ALT 14 U/L (4-49); AST 28 U/L (17-59); African American GFR (CKD) >90 (>60 ml/min/1.73 sqM); Albumin 4.4 g/dL (3.5-5.0); Alkaline Phosphatase 73 U/L (38-126); Amylase 82 U/L (30-110); Anion Gap 9 mmol/L; Blood Urea Nitrogen 16 mg/dL (9-20); Calcium 9.8 mg/dL (8.4-10.2); Carbon Dioxide 29 mmol/L (22-30); Chloride 97 mmol/L (98-107); Glucose 109 mg/dL (74-99); Lipase 89 U/L (23-300); Non-African American GFR(CKD) >90 (>60 ml/min/1.73 sqM); Potassium 4.1 mmol/L (3.5-5.1); Sodium 135 mmol/L (137-145); Total Bilirubin 0.6 mg/dL (0.2-1.3); Total Protein 8.2 g/dL (6.3-8.2)
[2024-03-23 21:38] LABS: HGB 13.5 gm/dL (13.0-17.5)
[2024-03-23] MEDS: PANTOPRAZOLE 40 MG/10 ML VIAL IVP STA (22:32)
[2024-03-23] MEDS: METOCLOPRAMIDE 5 MG/ML 2 ML VIAL IVP STA (22:33)
[2024-03-23 23:10] LABS: Appearance,Urine Clear (Clear); Bilirubin,Urine Negative (Negative); Blood,Urine Negative (Negative); Color,Urine Colorless; Glucose,Urine (UA) Negative (Negative); Ketones,Urine Negative (Negative); Leukocyte Esterase,Urine Negative (Negative); Nitrite,Urine Negative (Negative); Protein,Urine Negative (Negative); Specific Gravity,Urine 1.009 (1.001-1.035); Urobilinogen,Urine <2.0 mg/dL (<2.0)
[2024-03-23] MEDS ORDERED: NALOXONE 0.4 MG/ML 1 ML VIAL IV PRN (23:12)
[2024-03-23] MEDS: hydrALAZINE HCL 20 MG/ML 1 ML VIAL IVP STA (23:29)
[2024-03-23] MEDS: LORazepam 2 MG/ML INJ IV STA (23:30)
[2024-03-23] MEDS: HYDROmorphone 1 MG/ML 1 ML SYRINGE IVP PRN (23:32)
[2024-03-23] MEDS: CEFEPIME 1 GM in SODIUM CHLORIDE 0.9% 50 ML IVPB STA (23:33)
[2024-03-24] MEDS: metroNIDAZOLE-NS PMX 500 MG in SALINE 1 100ML.BAG IVPB STA (00:02)
[2024-03-24] MEDS: ALPRAZolam 0.25 MG TAB PO STA (00:17)
[2024-03-24] MEDS: SODIUM CHLORIDE 0.9% 1,000 ML IV SCH (01:07)
[2024-03-24] MEDS: KETOROLAC 15 MG/ML 1 ML VIAL IVP PRN (01:10)
[2024-03-24] MEDS: HYDROcodone/APAP 10-325MG 1 EACH TAB PO PRN (04:38)
[2024-03-24] MEDS: ONDANSETRON 4 MG/2 ML VIAL IVP PRN ×2 (05:02→12:34)
[2024-03-24] MEDS ORDERED: DEXTROSE 50% SYRINGE 50 ML IVP PRN ×2 (10:24)
[2024-03-24] MEDS: metroNIDAZOLE-NS PMX 500 MG in SALINE 1 100ML.BAG IVPB SCH (10:40)
[2024-03-24 11:48] LABS: Glucose,Whole Blood 114 mg/dL (70-110)
[2024-03-24] MEDS: INSULIN ASPART (NovoLOG) 100 UNIT/ML VIAL SQ SCH (12:26)
[2024-03-24] MEDS: CEFEPIME 2 GM in SODIUM CHLORIDE 0.9% 100 ML IVPB SCH (12:27)
[2024-03-24] MEDS: LINEZOLID 600 MG TAB PO SCH (12:27)
--- NOTE | 2024-03-24 12:39 | CT ---
EXAMINATION TYPE: CT abdomen pelvis w con CT DLP: 1566.6 mGycm, Automated exposure control for dose reduction was used. DATE OF EXAM: 03/24/2024 12:23 PM COMPARISON: Multiple CT abdomen and pelvis with most recent 03/19/2024 CLINICAL INDICATION:Male, 53 years old with history of Abdominal pain; Abdominal pain prior on pacs TECHNIQUE: Standard CT of the abdomen and pelvis following the administration of 100 cc of Isovue 3 00 IV contrast material. Coronal and sagittal reformats were performed. FINDINGS: LOWER CHEST: Calcified pleural plaque in the right lower lung posteriorly. Residual patchy opacity in the periphery of the right lung base without effusion. ABDOMEN LIVER: Unremarkable GALLBLADDER AND BILE DUCTS: Phrygian cap identified. No biliary duct dilatation. PANCREAS: Unremarkable. SPLEEN: Unremarkable. ADRENAL GLANDS: Unremarkable. KIDNEYS AND URETERS: No evidence of hydronephrosis. Nonobstructive left renal punctate calculus. The kidneys enhance symmetrically. Stable left renal cyst. PELVIS BLADDER: Unremarkable REPRODUCTIVE: Coarse calcifications of the prostate gland are identified. ABDOMEN & PELVIS STOMACH AND BOWEL: Stomach and duodenum are unremarkable. Left lower quadrant sigmoid colostomy ident ified. Similar stranding at the stoma. Huntley's pouch. No focal bowel wall thickening. Moderate stoo l burden. No evidence of bowel obstruction. PERITONEUM/RETROPERITONEUM: No evidence of pneumoperitoneum. Redemonstration of a perihepatic fluid c ollection with surrounding wall at the lateral right hepatic dome measuring 4.7 x 2.4 cm, previously measured 5.0 x 2.4 cm (series 201, image 12). Overall marginally smaller. The second fluid collection along the right paracolic gutter with possible communication with the per ihepatic collection is redemonstrated. This measures 3.8 x 1.8 cm, previously 5.3 x 2.0 cm (series 20 1, image 38). This is marginally smaller in size. The third fluid collection within the lower pelvis just superior to the urinary bladder measures up t o 3.3 cm, previously measured up to 4.6 cm (series 201, image 71). This is marginally smaller from pr ior exam. No new collections identified. No air identified within any of the collections. These demonstrate a w ell delineated wall. VASCULATURE: Moderate atherosclerotic calcifications are present throughout the abdominal aorta and i ts branches. No evidence of aortic aneurysm. MUSCULOSKELETAL: Moderate degenerative change of the hips. Extensive post surgical change of T11-S1 posterior lumbar fusion. Compression deformity of L2. Laminectomies from L1 through S1 levels. LYMPH NODES: No gross evidence for lymphadenopathy. SOFT TISSUE/ABDOMINAL WALL: Postsurgical changes anterior abdominal midline wall previous surgery. No definitive sizable organized fluid collection identified. Left lower quadrant ostomy redemonstrated. IMPRESSION: 1. Redemonstration of 3 well organized abnormal fluid collections in the abdomen and pelvis from keyon or CT. These have marginally decreased in size from most recent CT exam. 2. Postsurgical changes from left lower quadrant sigmoid colostomy redemonstrated. There is again rosario e mild inflammatory changes at the stoma. Correlate clinically.
--- NOTE | 2024-03-24 13:23 | P.HPIM ---
History of Present Illness H&P Date: 03/24/24 History of present illness; patient is a 53-year-old gentleman with past medical history significant for recent admission for perforated diverticulitis, requiring surgical intervention with exploratory laparotomy, Preeti procedure, sigmoid resection and descending colostomy, patient also ended up having abscess formation that required drainage by IR who presented to the ER after being sent in by ID for evaluation. Patient stated that for the last 2 days he has been increasingabdominal pain. Patient also having nausea. Denies any fever or chills. Patient recent CT scan done that showed decreasing size of intra- abdominal fluid collections. Denies any chest pain or shortness of breath. Because of the symptoms, patient called ID and they recommended him to come to the hospital Initial lab work done in the ER showed WBC 10.5, hemoglobin 13.5, platelet count 348, sodium 135, potassium 4.1, BUN 16, creatinine 0.67 AST 20, ALT 14, lipase 89 UA negative for infection Influenza A not detected Influenza B not detected RSV not detected COVID-19 not detected Patient admitted to internal medicine service REVIEW OF SYSTEMS: CONSTITUTIONAL: No fever, no malaise, no fatigue. HEENT: No recent visual problems or hearing problems. Denied any sore throat. CARDIOVASCULAR: No chest pain, orthopnea, PND, no palpitations, no syncope. PULMONARY: No shortness of breath, no cough, no hemoptysis. GASTROINTESTINAL: As mentioned above NEUROLOGICAL: No headaches, no weakness, no numbness. HEMATOLOGICAL: Denies any bleeding or petechiae. GENITOURINARY: Denies any burning micturition, frequency, or urgency. MUSCULOSKELETAL/RHEUMATOLOGICAL: Denies any joint pain, swelling, or any muscle pain. ENDOCRINE: Denies any polyuria or polydipsia. The rest of the 14-point review of systems is negative. PHYSICAL EXAMINATION: GENERAL: The patient is alert and oriented x3, not in any acute distress. Well developed, well nourished. HEENT: Pupils are round and equally reacting to light. EOMI. No scleral icterus. No conjunctival pallor. Normocephalic, atraumatic. No pharyngeal erythema. No thyromegaly. CARDIOVASCULAR: S1 and S2 present. No murmurs, rubs, or gallops. PULMONARY: Chest is clear to auscultation, no wheezing or crackles. ABDOMEN: Soft, nontender, nondistended, ostomy seen, MUSCULOSKELETAL: No joint swelling or deformity. EXTREMITIES: No cyanosis, clubbing, or pedal edema. NEUROLOGICAL: Gross neurological examination did not reveal any focal deficits. SKIN: No rashes. Assessment and plan Abdominal pain Nausea and vomiting Recent acute diverticulitis with perforation and localized abscess s/p surgical intervention exploratory laporotomy, Huntley's procedure, sigmoid resection and descending colostomy and drainage of intra-abdominal abscess on 01/30 with progr ession noted on repeat CT imaging on 02/11/2024 for new abscess formation. 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 Anxiety Monitor vital signs Monitor CBC Monitor CMP Continue IV fluids continue antiemetics ordered repeat CT abdominal pelvis Start cefepime and Flagyl Continue pain management Consult general surgery Consult ID Labs and medication were reviewed.. Continue same treatment. Continue with symptomatic treatment. Resume home medication. Monitor labs and vitals. DVT and GI prophylaxis. Further recommendations as per clinical course of the patient Dictation was produced using [employer] dictation software. please excuse any grammatical, word or spelling errors. Past Medical History Past Medical History: CVA/TIA, Diabetes Mellitus, Hypertension, Myocardial Infarction ([place]), Osteoarthritis ([place]) Additional Past Medical History / Comment(s): CVA x3 with TIA, 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, frequent falls Last Myocardial Infarction Date:: 2018 History of Any Multi-Drug Resistant Organisms: VRE Date of last positivie culture/infection: 01/31/24 MDRO Source:: Wound-site not specified Past Surgical History: Back Surgery, Bowel Resection, Heart Catheterization With Stent, Joint Replacement Additional Past Surgical History / Comment(s): Brain surgery, T-9 to T-10 autofusion, T-11 to S-1 fusion, L-2 compression fracture, S-1 hardware failure, (R) knee replacement, 01/25/2024 (sepsis) sigmoid diverticulitis/abcess with perforated bowel-ostomy Past Anesthesia/Blood Transfusion Reactions: No Reported Reaction Date of Last Stent Placement:: 2018 Past Psychological History: Anxiety, Bipolar, Depression Smoking Status: Former smoker Past Alcohol Use History: None Reported Past Drug Use History: Marijuana Medications and Allergies Home Medications Medication Instructions Recorded Confirmed Type Melatonin 5 mg PO HS 01/25/24 03/24/24 History methocarbamoL [Robaxin-750] 750 mg PO TID PRN 01/25/24 03/24/24 History Pregabalin [Lyrica] 150 mg PO BID #4 cap MDD 300mg 02/15/24 03/24/24 Rx ALPRAZolam [Xanax] 1 mg PO TID PRN 02/24/24 03/24/24 History oxyCODONE HCL [oxyCODONE HCL (IR)] 15 mg PO Q6H PRN 02/24/24 03/24/24 History Benazepril HCl 40 mg PO DAILY 03/24/24 03/24/24 History Omeprazole [PriLOSEC] 20 mg PO DAILY 03/24/24 03/24/24 History PARoxetine HCL [Paxil] 40 mg PO DAILY 03/24/24 03/24/24 History metFORMIN HCL 1,000 mg PO BID-W/MEALS 03/24/24 03/24/24 History Allergies Allergy/AdvReac Type Severity Reaction Status Date / Time divalproex sodium Allergy Rapid Verified 03/24/24 09:01 [From Depakote] Heart Rate Penicillins Allergy Anaphylaxis Verified 03/24/24 09:01 Physical Exam Vitals: Vital Signs Temp Pulse Pulse Resp BP BP Pulse Ox 03/24/24 07:50 98.0 F 78 20 194/97 95 03/24/24 01:28 16 03/24/24 00:48 97.6 F 73 18 183/95 97 03/24/24 00:31 98.1 F 67 16 151/89 98 03/24/24 00:03 73 15 145/82 96 03/23/24 23:37 78 16 190/104 97 03/23/24 23:26 80 18 187/100 98 03/23/24 22:37 98.8 F 73 18 200/126 98 03/23/24 19:24 98.4 F 80 18 155/94 97 Intake and Output 03/23/24 03/24/24 03/24/24 22:59 06:59 14:59 Output Total 750 Balance -750 Output: Urine 750 Other: Voiding Method Urinal Weight 90.718 kg 90.718 kg Results CBC & Chem 7: 03/23/24 20:31 06/30/24 20:31 Labs: Abnormal Lab Results - Last 24 Hours (Table) 03/23/24 Range/Units 20:31 Sodium 135 L (137-145) mmol/L Chloride 97 L (98-107) mmol/L Glucose 109 H (74-99) mg/dL Thrombosis Risk Factor Assmnt - Choose All That Apply Each Factor Represents 1 point: Acute [place], Age 41-60 years, Obesity (BMI >25) Other Risk Factors: No Other congenital or acquired thrombophilia - If yes, enter type in comment: No Thrombosis Risk Factor Assessment Total Risk Factor Score: 3 Thrombosis Risk Factor Assessment Level: Moderate Risk
--- NOTE | 2024-03-24 14:04 | P.GSCN ---
History of Present Illness Consult date: 03/24/24 History of present illness: CHIEF COMPLAINT: Abdominal pain HISTORY OF PRESENT ILLNESS: This is a 53-year-old with history of perforated diverticulitis with pelvic abscess who is status post Preeti procedure and colostomy. Patient reports that he finished the outpatient antibiotics. His abdominal drains are currently out. He had his follow-up abdominal CT scan t [facility] infectious disease Dr. López. He was told that the CAT scan had shown the fluid collections and continued infection. And that Dr. López recommended the patient is brought in to the hospital. Patient started on IV antibiotics. Infectious disease has ordered a consult for interventional radiology for drain placement. Patient continues to complain of abdominal pain more so on the right side as well as lower back pain. He has been having nausea and vomiting. His ostomy has been functioning. CT scan abdomen pelvis reports redemonstration of 3 well organized abnormal fluid collections in the abdomen and pelvis from prior CT. These have marginally decreased in size from most recent CT. Postsurgical changes from left lower quadrant sigmoid colostomy redemonstrated. There is again some mild inflammatory changes at the stoma. Patient does have a known history of chronic back pain and back surgeries. But he does report increase in his lower back pain. He is requesting to be restarted on his home medication. PAST MEDICAL HISTORY: See list. Recent SBO treated conservatively on 02/25/2024 PAST SURGICAL HISTORY: See list. MEDICATIONS: See list. ALLERGIES: See list. SOCIAL HISTORY: No illicit drug use. REVIEW OF SYSTEMS: CONSTITUTIONAL: Denies fever or chills. HEENT: Denies blurred vision, vision changes, or eye pain. Denies hemoptysis ENDOCRINE: Denies heat or cold intolerance. CARDIOVASCULAR: Denies chest pain or pressure. RESPIRATORY: No shortness of breath. GASTROINTESTINAL: Denies abdominal pain. Denies nausea or vomiting. NEURO: Denies history of seizures. PSYCH: No depression or suicidal ideation HEMATOLOGIC: Denies bleeding disorders. LYMPHATIC: The patient denies any lumps and bumps around the neck. GENITOURINARY: Denies any blood in urine or increased urinary frequency. MUSCULOSKELETAL: Denies myalgias. Denies joint swelling. Denies decreased range of motion beyond patients baseline. SKIN: Denies pruitis. Denies rash. PHYSICAL EXAM: VITAL SIGNS: Reviewed GENERAL: Well-developed in no acute distress. HEENT: No sclera icterus. Extraocular movements grossly intact. Moist buccal mucosa. Head is atraumatic, normocephalic. Hears conversational speech. No nasal drainage. NECK: Supple without lymphadenopathy. CHEST: Non-labored respirations and equal bilateral excursions. CARDIOVASCULAR: Palpable 2+ radial pulses. ABDOMEN: Soft. Nondistended. Tenderness more on the right upper quadrant of the abdomen. Ostomy is functioning. Stoma beefy red MUSCULOSKELETAL: No clubbing or cyanosis. NEUROLOGIC: No focal or lateralizing signs. Cranial nerves II through XII grossly intact. PSYCH: Appropriate affect. Alert and oriented to person, place and time. SKIN: Well perfused. Good skin turgor. LABORATORY DATA: WBC 10.5 Hgb 13.5 platelets 348 Sodium is 135 potassium 4.1 creatinine 0.67 Lipase 89 urinalysis negative IMAGING: CT scan as stated above ASSESSMENT: 1. Abdominal pain 2. History of perforated diverticulitis with pelvic abscess status post Preeti procedure with colostomy 3. CT scan reporting 3 organized abnormal fluid collections in the abdomen and pelvis PLAN: -Agree with consult for interventional radiology for possible drain placement -Continue antibiotics -Continue pain management -Continue to monitor -Continue antiemetics -Okay for sips of clears Physician [employer] Design Layout Drafter note has been reviewed by physician. Signing provider agrees with the documented findings, assessment, and plan of care. Please see additional documentation below by provider CHIEF COMPLAINT: Abdominal pain HISTORY OF PRESENT ILLNESS: The patient is a 53-year-old male with complicated history of perforated diverticulitis 01/25/2024 followed by diverting colostomy and evacuation of VRE fecal peritonitis 01/31/2024. Patient has had multiple hospitalizations due to intra-abdominal abscesses, abdominal pain and presence of chronic pain due to his lower back. He was admitted 02/24/2024 and discharged 02/27/2024 due to bowel obstruction. Patient had clinically done well. He was being followed as outpatient as he had interventional radiology drains for the pelvis and right lower abdomen. His drains were removed 03/19/2024 with subsequent follow-up CT scan ordered by fl 03/22/2024. Patient had a follow-up with infectious disease provider and was called to return to emergency room due to abnormal CT findings. Patient does report abdominal pain. He has had emesis. Patient was admitted due to abnormal CT scan for intra-abdominal abscess. Patient was hypertensive at the time of my assessment, systolic blood pressure over 190s over 110s. PAST MEDICAL HISTORY: See list and reviewed PAST SURGICAL HISTORY: See list and reviewed MEDICATIONS: See list and reviewed ALLERGIES: See list and reviewed SOCIAL HISTORY: See list and reviewed FAMILY HISTORY: See list and reviewed REVIEW OF ORGAN SYSTEMS: CONSTITUTIONAL: No fevers or chills. EYES: Denies any trouble with vision. No glasses. HEENT: Has difficulty hearing. No nosebleeds. No difficulty swallowing. RESPIRATORY: Denies pneumonia. Denies any troubles with breathing or dyspnea on exertion. CARDIOVASCULAR: Has hypertensive heart disease. GASTROINTESTINAL: Denies fatty food intolerance. Has change in bowel habits and gas bloat. GENITOURINARY: Denies any blood in urine or increased urinary frequency. NEUROLOGICAL: Has prior brain injury. MUSCULOSKELETAL: Has back pain, stiffness or joint arthritis. SKIN: No current skin cancer. No rash. PSYCHIATRIC: Has depression. Has generalized anxiety disorder. Has bipolar disorder. ENDOCRINE: Denies current thyroid disorders. Has diabetes type 2. HEME/LYMPHATIC: Denies any lumps and bumps around the neck. No recent deep venous thrombosis. Has VRE. ALLERGY/IMMUNOLOGY: No immunoglobulin therapy. No immune deficiencies. BREAST: Denies current breast lumps, pain or nipple discharge. PHYSICAL EXAM: VITALS: Reviewed CONSTITUTIONAL: Well developed and in no acute distress. EYES: Conjuctivae without sclera icterus. Extraocular movements grossly intact. HEAD, EARS, NOSE, THROAT: Moist buccal mucosa. Head is atraumatic, normocephalic. Hears conversational speech. No nasal drainage. NECK: Supple. No JV distention. No thyroidomegaly. RESPIRATORY: Non-labored respirations and equal bilateral excursions. No gross wheezes. CARDIOVASCULAR: Palpable 2+ radial pulses. ABDOMEN: Nontender. Well-healed midline incision without active drainage. Ostomy patent and pink with stool and flatus. LYMPH: No neck lymphadenopathy. MUSCULOSKELETAL: No clubbing cyanosis or edema SKIN: Warm and well perfused with good skin turgor. NEUROLOGIC: Cranial nerves II through XII grossly intact. No focal or lateralizing signs. PSYCH: Appropriate affect. Alert and oriented to person, place and time. Displays appropriate insight. CLINCAL LABS: Reviewed. WBC normal. RADIOLOGY: CT of the abdomen pelvis independently reviewed demonstrated fluid collection along the right lobe of the liver. Separate abscesses within the pelvis x 2. Another small abscess of the right lower quadrant, along the ascending colon. REPORT: CT of the abdomen pelvis 5 x 5 cm abscess along the right liver lobe. Right paracolic gutter abscess 5 x 5 cm. Pelvic abscesses 6 cm by 5 cm. Presence of cystitis. Presence of inflammation along the stoma, left lower abdomen. ASSESSMENT: 1. Abnormal CT scan for intra-abdominal abscesses 2. Personal history of perforated sigmoid diverticulitis with fecal peritonitis, VRE 3. Hypertensive heart disease with hypertensive urgency PLAN: 1. Due to the size of the abscesses, drainage of the area without pigtail catheter may be feasible pending interventional radiology consultation. 2. Consultation to infectious disease for antibiotic management 3. Patient has chronic pain meds needs and continue with current pain protocol. 4. Patient is nontoxic in appearance without peritonitis and conservative management for intra-abdominal abscesses described. Past Medical History Past Medical History: CVA/TIA, Diabetes Mellitus, Hypertension, Myocardial Infarction ([place]), Osteoarthritis (OA) Additional Past Medical History / Comment(s): CVA x3 with TIA, 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, frequent falls Last Myocardial Infarction Date:: 2018 History of Any Multi-Drug Resistant Organisms: VRE Year Discovered:: 01/31/24 MDRO Source:: Wound-site not specified Past Surgical History: Back Surgery, Bowel Resection, Heart Catheterization With Stent, Joint Replacement Additional Past Surgical History / Comment(s): Brain surgery, T-9 to T-10 autofusion, T-11 to S-1 fusion, L-2 compression fracture, S-1 hardware failure, (R) knee replacement, 01/25/2024 (sepsis) sigmoid diverticulitis/abcess with pe rforated bowel-ostomy Past Anesthesia/Blood Transfusion Reactions: No Reported Reaction Date of Last Stent Placement:: 2018 Past Psychological History: Anxiety, Bipolar, Depression Smoking Status: Former smoker Past Alcohol Use History: None Reported Past Drug Use History: Marijuana Medications and Allergies Home Medications Medication Instructions Recorded Confirmed Type Melatonin 5 mg PO HS 01/25/24 03/24/24 History methocarbamoL [Robaxin-750] 750 mg PO TID PRN 01/25/24 03/24/24 History Pregabalin [Lyrica] 150 mg PO BID #4 cap MDD 300mg 02/15/24 03/24/24 Rx ALPRAZolam [Xanax] 1 mg PO TID PRN 02/24/24 03/24/24 History oxyCODONE HCL [oxyCODONE HCL (IR)] 15 mg PO Q6H PRN 02/24/24 03/24/24 History Benazepril HCl 40 mg PO DAILY 03/24/24 03/24/24 History Omeprazole [PriLOSEC] 20 mg PO DAILY 03/24/24 03/24/24 History PARoxetine HCL [Paxil] 40 mg PO DAILY 03/24/24 03/24/24 History metFORMIN HCL 1,000 mg PO BID-W/MEALS 03/24/24 03/24/24 History Allergies Allergy/AdvReac Type Severity Reaction Status Date / Time divalproex sodium Allergy Rapid Verified 03/24/24 09:01 [facility] Heart Rate Penicillins Allergy Anaphylaxis Verified 03/24/24 09:01 Surgical - Exam Vital Signs Temp Pulse Resp BP Pulse Ox 98.4 F 80 18 155/94 97 03/23/24 19:24 03/23/24 19:24 03/23/24 19:24 03/23/24 19:24 03/23/24 19:24 Results - Labs 03/23/24 20:31 03/23/24 20:31 Abnormal Lab Results - Last 24 Hours (Table) 03/23/24 Range/Units 20:31 Sodium 135 L (137-145) mmol/L Chloride 97 L (98-107) mmol/L Glucose 109 H (74-99) mg/dL Diabetes panel 03/23/24 Range/Units 20:31 Sodium 135 L (137-145) mmol/L Potassium 4.1 (3.5-5.1) mmol/L Chloride 97 L (98-107) mmol/L Carbon Dioxide 29 (22-30) mmol/L BUN 16 (9-20) mg/dL Creatinine 0.67 (0.66-1.25) mg/dL Glucose 109 H (74-99) mg/dL Calcium 9.8 (8.4-10.2) mg/dL AST 28 (17-59) U/L ALT 14 (4-49) U/L Alkaline Phosphatase 73 (38-126) U/L Total Protein 8.2 (6.3-8.2) g/dL Albumin 4.4 (3.5-5.0) g/dL Calcium panel 03/23/24 Range/Units 20:31 Calcium 9.8 (8.4-10.2) mg/dL Albumin 4.4 (3.5-5.0) g/dL Pituitary panel 03/23/24 Range/Units 20:31 Sodium 135 L (137-145) mmol/L Potassium 4.1 (3.5-5.1) mmol/L Chloride 97 L (98-107) mmol/L Carbon Dioxide 29 (22-30) mmol/L BUN 16 (9-20) mg/dL Creatinine 0.67 (0.66-1.25) mg/dL Glucose 109 H (74-99) mg/dL Calcium 9.8 (8.4-10.2) mg/dL Adrenal panel 03/23/24 Range/Units 20:31 Sodium 135 L (137-145) mmol/L Potassium 4.1 (3.5-5.1) mmol/L Chloride 97 L (98-107) mmol/L Carbon Dioxide 29 (22-30) mmol/L BUN 16 (9-20) mg/dL Creatinine 0.67 (0.66-1.25) mg/dL Glucose 109 H (74-99) mg/dL Calcium 9.8 (8.4-10.2) mg/dL Total Bilirubin 0.6 (0.2-1.3) mg/dL AST 28 (17-59) U/L ALT 14 (4-49) U/L Alkaline Phosphatase 73 (38-126) U/L Total Protein 8.2 (6.3-8.2) g/dL Albumin 4.4 (3.5-5.0) g/dL
[2024-03-24 16:37] LABS: Glucose,Whole Blood 122 mg/dL (70-110)
[2024-03-24] MEDS: PREGABALIN 75 MG CAP PO SCH (20:04)
[2024-03-24 20:59] LABS: Glucose,Whole Blood 120 mg/dL (70-110)
[2024-03-24] MEDS: MORPHINE SULFATE 2 MG/ML SYRINGE IVP PRN (22:14)
--- NOTE | 2024-03-24 22:37 | P.CONS ---
History of Present Illness - Reason for Consult Consult date: 03/24/24 Intra-abdominal abscess Requesting physician: Bernabe Olguin - Chief Complaint Abdominal pain x few days - History of Present Illness Patient is a 53-year-old male with a past medical history significant for diabetes mellitus hypertension CA osteoarthritis CVA TIA chronic back pain recent admission the hospital with perforated diverticulitis and intra-abdominal abscess s/p laparotomy and diverting colostomy and drainage of the abscess culture has been positive for VRE and Hamida with repeat aspiration on 02/12/2024 positive for drug-resistant VRE that has been treated with oral Zyvox and the patient recently completed a course of antibiotics patient did have a follow-up CT completed on 03/19/2024 being ordered by surgery report was reviewed by myself yesterday patient was calling as there was evidence of residual abscess to be admitted to hospital for further workup patient denies having any fever or any chills has been complaining of feeling nauseated and episode of vomiting did have some dull aching abdominal pain denies having any worsening ou tput in his colostomy has been complaining of mostly back pain patient on presentation to the hospital was afebrile and no fever have been recorded subsequently patient was not tachycardic hypotensive or hypoxic he did have a white count of 10.5 no left shift creatinine 0.67 liver isms are normal amylase lipase normal urine is negative influenza RSV COVID testing negative patient has been admitted to the hospital started on cefepime and yl infectious disease was consulted for further management of antibiotic therapy Review of Systems Positive point and negatives has been mentioned in the HPI, complete review of systems was performed and all other systems are negative Past Medical History Past Medical History: CVA/TIA, Diabetes Mellitus, Hypertension, Myocardial Infarction ([place]), Osteoarthritis (OA) Additional Past Medical History / Comment(s): CVA x3 with TIA, 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, frequent falls Last Myocardial Infarction Date:: 2019 History of Any Multi-Drug Resistant Organisms: VRE Year Discovered:: 01/31/24 MDRO Source:: Wound-site not specified Past Surgical History: Back Surgery, Bowel Resection, Heart Catheterization With Stent, Joint Replacement Additional Past Surgical History / Comment(s): Brain surgery, T-9 to T-10 autofusion, T-11 to S-1 fusion, L-2 compression fracture, S-1 hardware failure, (R) knee replacement, 01/25/2024 (sepsis) sigmoid diverticulitis/abcess with perforated bowel-ostomy Past Anesthesia/Blood Transfusion Reactions: No Reported Reaction Date of Last Stent Placement:: 2018 Past Psychological History: Anxiety, Bipolar, Depression Smoking Status: Former smoker Past Alcohol Use History: None Reported Past Drug Use History: Marijuana Medications and Allergies Home Medications Medication Instructions Recorded Confirmed Type Melatonin 5 mg PO HS 01/25/24 03/24/24 History methocarbamoL [Robaxin-750] 750 mg PO TID PRN 01/25/24 03/24/24 History Pregabalin [Lyrica] 150 mg PO BID #4 cap MDD 300mg 02/15/24 03/24/24 Rx ALPRAZolam [Xanax] 1 mg PO TID PRN 02/24/24 03/24/24 History oxyCODONE HCL [oxyCODONE HCL (IR)] 15 mg PO Q6H PRN 02/24/24 03/24/24 History Benazepril HCl 40 mg PO DAILY 03/24/24 03/24/24 History Omeprazole [PriLOSEC] 20 mg PO DAILY 03/24/24 03/24/24 History PARoxetine HCL [Paxil] 40 mg PO DAILY 03/24/24 03/24/24 History metFORMIN HCL 1,000 mg PO BID-W/MEALS 03/24/24 03/24/24 History Linezolid [Zyvox] 600 mg PO Q12H #28 tab 03/29/24 Rx cefUROXime axetiL [Ceftin] 500 mg PO BID 14 Days #28 tab 03/29/24 Rx metroNIDAZOLE [Flagyl] 500 mg PO TID #42 tab 03/29/24 Rx Allergies Allergy/AdvReac Type Severity Reaction Status Date / Time divalproex sodium Allergy Rapid Verified 03/24/24 09:01 [From Depakote] Heart Rate Penicillins Allergy Anaphylaxis Verified 03/24/24 09:01 Physical Exam Vitals: Vital Signs Temp Pulse Pulse Resp BP BP Pulse Ox 03/24/24 07:50 98.0 F 78 20 194/97 95 03/24/24 01:28 16 03/24/24 00:48 97.6 F 73 18 183/95 97 03/24/24 00:31 98.1 F 67 16 151/89 98 03/24/24 00:03 73 15 145/82 96 03/23/24 23:37 78 16 190/104 97 03/23/24 23:26 80 18 187/100 98 03/23/24 22:37 98.8 F 73 18 200/126 98 03/23/24 19:24 98.4 F 80 18 155/94 97 Intake and Output 03/23/24 03/24/24 03/24/24 22:59 06:59 14:59 Output Total 750 Balance -750 Output: Urine 750 Other: Voiding Method Urinal Weight 90.718 kg 90.718 kg GENERAL DESCRIPTION: Middle-aged male lying in bed, no distress. No tachypnea or accessory muscle of respiration use. HEENT: Shows Pallor , no scleral icterus. Oral mucous membrane is dry. No pharyngeal erythema or thrush NECK: Trachea central, no thyromegaly. LUNGS: Unlabored breathing. Clear to auscultation anteriorly. No wheeze or crackle. HEART: S1, S2, regular rate and rhythm. No loud murmur ABDOMEN: Soft, no tenderness , EXTREMITIES: No edema of feet. SKIN: No rash, no masses palpable. NEUROLOGICAL: The patient is awake, alert, oriented x3, mood and affect normal. Results CBC & Chem 7: 03/29/24 06:27 03/29/24 06:27 Labs: Abnormal Lab Results - Last 24 Hours (Table) 03/23/24 Range/Units 20:31 Sodium 135 L (137-145) mmol/L Chloride 97 L (98-107) mmol/L Glucose 109 H (74-99) mg/dL Assessment and Plan (1) Intra-abdominal abscess Current Visit: Yes Status: Acute Code(s): K65.1 - PERITONEAL ABSCESS SNOMED Code(s): 54754488 (2) Penicillin allergy Current Visit: No Status: Acute Code(s): Z88.0 - ALLERGY STATUS TO PENICILLIN SNOMED Code(s): 70424660 (3) Perforation of sigmoid colon due to diverticulitis Current Visit: No Status: Acute Code(s): K57.20 - DVTRCLI OF LG INT W PERFORATION AND ABSCESS W/O BLEEDING SNOMED Code(s): 3584295927732149 Plan: 1patient with a complicated history of intra-abdominal abscess from perforated diverticulitis with the last culture positive for VRE drug-resistant however sensitive to oral Zyvox which the patient has completed recently with a follow- up CT did show some residual abscess which has decreased in size but not completely resolved 2-we will get IR evaluation for drainage of this abscess and fluid should be sent for culture 3-patient to continue cefepime and Flagyl we will add oral Zyvox however keeping in mind the patient has been on Zyvox for the last month pharmacy has been a lerted to arrange for Tygacil in case the pathogen is resistant to Zyvox on repeat cultures 4-multiple communication with the IR today for at least drainage of accessible abscess at least for the culture and then unable to place a drain We will follow on clinical condition and cultures to further adjust medication if needed Thank you for this consultation we will follow the patient along with you Dictation was produced using [employer] dictation software. please excuse any grammatical, word or spelling errors. Time with Patient: Greater than 30
[2024-03-25 04:29] LABS: Prothrombin Time 11.1 sec (10.0-12.5)
[2024-03-25 05:35] LABS: Glucose,Whole Blood 106 mg/dL (70-110)
[2024-03-25] MEDS: PANTOPRAZOLE 40 MG TABLET PO SCH (06:54)
[2024-03-25] MEDS ORDERED: PARoxetine 20 MG TAB PO SCH (09:00)
[2024-03-25] MEDS: lisinopriL 20 MG TAB PO SCH (09:30)
[2024-03-25 11:32] LABS: Glucose,Whole Blood 116 mg/dL (70-110)
[2024-03-25] MEDS ORDERED: hydrALAZINE HCL 20 MG/ML 1 ML VIAL IVP PRN (12:11)
[2024-03-25] MEDS: MORPHINE SULFATE 2 MG/ML SYRINGE IVP PRN (13:23)
--- NOTE | 2024-03-25 13:59 | P.PN ---
Subjective Progress Note Date: 03/25/24 patient is a 53-year-old gentleman with past medical history significant for recent admission for perforated diverticulitis, requiring surgical intervention with exploratory laparotomy, Preeti procedure, sigmoid resection and descending colostomy, patient also ended up having abscess formation that requi red drainage by IR who presented to the ER after being sent in by ID for evaluation. Patient stated that for the last 2 days he has been increasingabdominal pain. Patient also having nausea. Denies any fever or chills. Patient recent CT scan done that showed decreasing size of intra- abdominal fluid collections. Denies any chest pain or shortness of breath. Because of the symptoms, patient called ID and they recommended him to come to the hospital Initial lab work done in the ER showed WBC 10.5, hemoglobin 13.5, platelet count 348, sodium 135, potassium 4.1, BUN 16, creatinine 0.67 AST 20, ALT 14, lipase 89 UA negative for infection Influenza A not detected Influenza B not detected RSV not detected COVID-19 not detected Patient admitted to internal medicine service 03/25. Patient seen and examined. Continues to complain of back pain and abdominal pain. CT abdominal pelvis done showed redemonstration of 3 well- organized abdominal fluid collection in the abdominal pelvis, postsurgical changes from left lower quadrant sigmoid colostomy REVIEW OF SYSTEMS: CONSTITUTIONAL: No fever, no malaise,. CARDIOVASCULAR: No chest pain, no palpitations, no syncope. PULMONARY: No shortness of breath, no cough, GASTROINTESTINAL: No diarrhea, no nausea, no vomiting, no abdominal pain. NEUROLOGICAL: No headaches, no weakness, PHYSICAL EXAMINATION: GENERAL: The patient is alert and oriented x3, not in any acute distress. Well developed, well nourished. HEENT: Pupils are round and equally reacting to light. EOMI. No scleral icterus. No conjunctival pallor. Normocephalic, atraumatic. No pharyngeal erythema. No thyromegaly. CARDIOVASCULAR: S1 and S2 present. No murmurs, rubs, or gallops. PULMONARY: Chest is clear to auscultation, no wheezing or crackles. ABDOMEN: Soft, nontender, nondistended, normoactive bowel sounds. No palpable organomegaly. Ostomy MUSCULOSKELETAL: No joint swelling or deformity. EXTREMITIES: No cyanosis, clubbing, or pedal edema. NEUROLOGICAL: Gross neurological examination did not reveal any focal deficits. SKIN: No rashes. Assessment and plan Intra-abdominal abscess Abdominal pain Nausea and vomiting Recent acute diverticulitis with perforation and localized abscess s/p surgical intervention exploratory laporotomy, Huntley's procedure, sigmoid resection and descending colostomy and drainage of intra-abdominal abscess on 01/30 with pro gression noted on repeat CT imaging on 02/11/2024 for new abscess formation. 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 Anxiety Monitor vital signs Monitor CBC Monitor CMP Continue IV fluids continue antiemetics CT abdominal pelvis done showed redemonstration of 3 well-organized abdominal fluid collection in the abdominal pelvis, postsurgical changes from left lower quadrant sigmoid colostomy Continue cefepime, Eraxis and Flagyl Continue pain management Surgery following ID following IR consulted for drainage Labs and medication were reviewed.. Continue same treatment. Continue with symptomatic treatment. Resume home medication. Monitor labs and vitals. DVT a nd GI prophylaxis. Further recommendations as per clinical course of the patient Dictation was produced using [employer] dictation software. please excuse any grammatical, word or spelling errors. Objective - Vital Signs Vital signs: Vital Signs Temp 98.2 F 03/25/24 08:00 Pulse 78 03/25/24 11:01 Resp 16 03/25/24 11:01 BP 197/111 03/25/24 11:06 Pulse Ox 95 03/25/24 11:01 FiO2 Intake & Output 03/24/24 03/25/24 03/25/24 18:59 06:59 18:59 Intake Total 800 Output Total 1050 Balance 800 -1050 Intake: Intake, IV Titration 800 Amount Cefepime 2 gm In Sodium 100 Chloride 0.9% 100 ml @ 25 mls/hr IVPB Q8H GREGORIO Rx#: [id number] Sodium Chloride 0.9% 1, 600 000 ml @ 75 mls/hr IV . [id number] GREGORIO Rx#:[id number] metroNIDAZOLE-NS PMX 500 100 mg In Saline 1 100ml.bag @ 100 mls/hr IVPB Q8H GREGORIO Rx#:[id number] Output: Urine 1050 - Labs CBC & Chem 7: 03/23/24 20:31 03/23/24 20:31 Labs: Abnormal Lab Results - Last 24 Hours (Table) 03/24/24 03/24/24 03/25/24 Range/Units 16:36 20:57 11:30 POC Glucose (mg/dL) 122 H 120 H 116 H (70-110) mg/dL Microbiology - Last 24 Hours (Table) 03/23/24 20:16 Blood Culture - Preliminary Blood 03/23/24 20:31 Blood Culture - Preliminary Blood
[2024-03-25] MEDS: TIGECYCLINE 100 MG in SODIUM CHLORIDE 0.9% 100 ML IVPB ONE (15:37)
--- NOTE | 2024-03-25 15:38 | P.PN ---
Subjective Progress Note Date: 03/25/24 CHIEF COMPLAINT: Abdominal pain HISTORY OF PRESENT ILLNESS: Patient complains of abdominal pain and lower back pain. He is still having issues with nausea and vomiting. He has had no output from his ostomy. Interventional radiology were unable to place a drainage tube due to size and location of the abscesses. At this time they are working on aspirating the drainage. Unfortunately could not complete this today due to patient's elevated blood pressure. Afebrile. PHYSICAL EXAM: VITAL SIGNS: Reviewed. GENERAL: Well-developed in no acute distress. HEENT: No sclera icterus. Extraocular movements grossly intact. Moist buccal mucosa. Head is atraumatic, normocephalic. ABDOMEN: Soft. Nondistended. Patient lower abdominal tenderness. Ostomy no stool or air noted in colostomy bag NEUROLOGIC: Alert and oriented. Cranial nerves II through XII grossly intact. ASSESSMENT: 1. Abdominal pain 2. Abnormal CT scan for intra-abdominal abscesses 3. Personal history of perforated sigmoid diverticulitis with fecal peritonitis, VRE 4. Hypertensive heart disease with hypertensive urgency 5. Nausea and vomiting with decreased output from ostomy. Recent small bowel obstruction treated conservatively PLAN: -Downgrade diet to n.p.o. except for ice chips and popsicles -IR attempting to aspirate fluid from abdominal abscess -Antibiotics per infectious disease -Continue pain management -Hypertension management per medicine service Physician Care Transitions Manager note has been reviewed by physician. Signing provider agrees with the documented findings, assessment, and plan of care. As above. Please see additional documentation below. Patient has had hypertensive urgency from yesterday evening till today. Blood pressure this late afternoon and evening demonstrates improvement of hypertens ion. Attempted CT-guided drainage of right abdominal wall abscess identified. Overall, no acute general surgical intervention on abscesses. Agree with interventional radiology aspiration of obtainable abscesses. Antibiotic management per infectious disease pending cultures. Objective - Vital Signs Vital signs: Vital Signs Temp 99.5 F 03/25/24 13:06 Pulse 67 03/25/24 14:21 Resp 18 03/25/24 14:21 BP 138/69 03/25/24 14:21 Pulse Ox 98 03/25/24 14:21 FiO2 Intake & Output 03/24/24 03/25/24 03/25/24 18:59 06:59 18:59 Intake Total 800 Output Total 1050 Balance 800 -1050 Intake: Intake, IV Titration 800 Amount Cefepime 2 gm In Sodium 100 Chloride 0.9% 100 ml @ 25 mls/hr IVPB Q8H [facility] Rx#: [id number] Sodium Chloride 0.9% 1, 600 000 ml @ 75 mls/hr IV . [id number] [facility] Rx#:[id number] metroNIDAZOLE-NS PMX 500 100 mg In Saline 1 100ml.bag @ 100 mls/hr IVPB Q8H [facility] Rx#:[id number] Output: Urine 1050 - Labs CBC & Chem 7: 03/23/24 20:31 03/23/24 20:31 Labs: Abnormal Lab Results - Last 24 Hours (Table) 03/24/24 03/24/24 03/25/24 Range/Units 16:36 20:57 11:30 POC Glucose (mg/dL) 122 H 120 H 116 H (70-110) mg/dL Microbiology - Last 24 Hours (Table) 03/23/24 20:16 Blood Culture - Preliminary Blood 03/23/24 20:31 Blood Culture - Preliminary Blood
[2024-03-25] MEDS: methocarbamoL 750 MG TAB PO PRN (16:04)
--- NOTE | 2024-03-25 16:24 | P.PN ---
Subjective Progress Note Date: 03/25/24 Principal diagnosis: Reason for follow-up is intra-abdominal abscess Patient is a 53-year-old male with a past medical history significant for diabetes mellitus hypertension VT osteoarthritis CVA TIA chronic back pain recent admission the hospital with perforated diverticulitis and intra-abdominal abscess s/p laparotomy and diverting colostomy and drainage of the abscess culture has been positive for VRE and Hamida with repeat aspiration on 02/12/2024 positive for drug-resistant VRE that was sensitive to oral Zyvox patient completed extended course of antibiotic with a follow-up CT did shows improvement but not complete resolution of the abscess requiring admission to the hospital. On today's evaluation that is 03/25/2024, Patient is afebrile this morning and denies any chills, patient mention breathing comfortably and is currently on room air, patient denies any chest pain occasional cough patient abdominal pain has decreased intensity no further nausea vomiting main symptom remains to be back pain and asking for more pain medication for the same. Patient did not have any lab draw today Objective - Vital Signs Vital signs: Vital Signs Temp 98.2 F 03/25/24 08:00 Pulse 78 03/25/24 11:01 Resp 16 03/25/24 11:01 BP 197/111 03/25/24 11:06 Pulse Ox 95 03/25/24 11:01 FiO2 Intake & Output 03/24/24 03/25/24 03/25/24 18:59 06:59 18:59 Intake Total 800 Output Total 1050 Balance 800 -1050 Intake: Intake, IV Titration 800 Amount Cefepime 2 gm In Sodium 100 Chloride 0.9% 100 ml @ 25 mls/hr IVPB Q8H [facility] Rx#: [id number] Sodium Chloride 0.9% 1, 600 000 ml @ 75 mls/hr IV . [id number] [facility] Rx#:[id number] metroNIDAZOLE-NS PMX 500 100 mg In Saline 1 100ml.bag @ 100 mls/hr IVPB Q8H [facility] Rx#:[id number] Output: Urine 1050 - Exam GENERAL DESCRIPTION: Middle-age male lying in bed in no distress RESPIRATORY SYSTEM: Unlabored breathing , decreased breath sounds at bases HEART: S1 S2 regular rate and rhythm , ABDOMEN: Soft , no tenderness EXTREMITIES: No edema feet - Labs CBC & Chem 7: 03/23/24 20:31 03/23/24 20:31 Labs: Abnormal Lab Results - Last 24 Hours (Table) 03/24/24 03/24/24 03/25/24 Range/Units 16:36 20:57 11:30 POC Glucose (mg/dL) 122 H 120 H 116 H (70-110) mg/dL Microbiology - Last 24 Hours (Table) 03/23/24 20:16 Blood Culture - Preliminary Blood 03/23/24 20:31 Blood Culture - Preliminary Blood Assessment and Plan (1) Intra-abdominal abscess Current Visit: Yes Status: Acute Code(s): K65.1 - PERITONEAL ABSCESS SNOMED Code(s): 59458447 (2) Penicillin allergy Current Visit: No Status: Acute Code(s): Z88.0 - ALLERGY STATUS TO PENICILLIN SNOMED Code(s): 83947999 Plan: 1patient with a complicated history of intra-abdominal abscess from perforated diverticulitis with the last culture positive for VRE drug-resistant however sensitive to oral Zyvox with the patient has completed recently with a follow-up CT did show some residual abscess which has decreased in size but not completely resolved 2-I have detailed discussion with the IR multiple times yesterday as well as today and have reviewed the CAT scans with the radiologist patient did have significant improvement in all the 3 abscesses only one of them is currently accessible for CT-guided aspiration I did discuss with the IR he should aspirate the area completely and no need to place a drain and send the fluid for cultures also discussed in detail with the pharmacy they were able to obtain a tig ecycline which will be started we will discontinue Zyvox so the patient can take his SSRI medication, continue with cefepime Flagyl and Eraxis while waiting for the culture to finalize Dictation was produced using [employer] dictation software. please excuse any grammatical, word or spelling errors. Time with Patient: Greater than 30
[2024-03-25 16:26] LABS: Glucose,Whole Blood 101 mg/dL (70-110)
[2024-03-25] MEDS: ANIDULAFUNGIN 200 MG in SODIUM CHLORIDE 0.9% 200 ML IVPB ONE (16:45)
[2024-03-25 20:53] LABS: Glucose,Whole Blood 108 mg/dL (70-110)
[2024-03-26] MEDS: MELATONIN 5 MG TABLET PO SCH (01:24)
[2024-03-26 06:15] LABS: Glucose,Whole Blood 125 mg/dL (70-110)
--- NOTE | 2024-03-26 07:48 | CT ---
EXAMINATION TYPE: CT discontinued procedure DATE OF EXAM: 03/25/2024 COMPARISON: 03/24/2024 HISTORY: discontinued procedure due to high BP CT DLP: 527 mGycm Automated exposure control for dose reduction was used. FINDINGS: Patient had a markedly elevated blood pressure. Case was discussed with referring clinician and the p atient wished to defer the procedure. IMPRESSION: DISCONTINUED PROCEDURE.
--- NOTE | 2024-03-26 07:52 | CT ---
EXAMINATION TYPE: CT guided abscess drainage DATE OF EXAM: 03/25/2024 COMPARISON: 03/24/2024 HISTORY: Request is for fluid collection aspiration for pathological examination of a small abdominal right sided collection. CT DLP: 2599 mGycm The patient's blood pressure now is within safe limits for the procedure. Request is for fine-needle aspiration to obtain a sample of the fluid collection within the right lateral abdomen. There is markedly diminished size to the pelvic collection which is of not percutaneously accessible due to surrounding structures and diminutive size. There is an additional collection seen in the perihepatic region which is a difficult access due to i ts positioning with the lung and diaphragm. Safe percutaneous access is limited. Recommend surgical c onsultation. The procedure is discussed with the patient, the risks, complications, benefits and alternatives, wer e discussed and any questions were answered. Informed consent was obtained. The patient is placed s upine on the CT table, prepped and draped in the usual sterile fashion. Utilizing a 18-gauge needle access into small right lateral abdominal fluid collection was achieved w ith approximately 5 cc of purulent material aspirated. Pathology pending. All elements of maximal b arrier and sterile technique were utilized. The patient remained stable throughout the procedure wit h no immediate postprocedural complication. IMPRESSION: 1. Successful CT guided aspiration of a small lateral fluid collection in the right abdomen.
[2024-03-26] MEDS: TIGECYCLINE 50 MG in SODIUM CHLORIDE 0.9% 100 ML IVPB SCH ×2 (08:51→22:28)
[2024-03-26 09:04] LABS: ALT 11 U/L (10-49); AST 17 U/L (14-35); Albumin/Globulin Ratio 1.38 Ratio (1.60-3.17); Alkaline Phosphatase 64 U/L (41-126); BUN/Creat Ratio 22.88 Ratio (12.00-20.00); Blood Urea Nitrogen 18.3 mg/dL (9.0-27.0); Calcium 9.3 mg/dL (8.7-10.3); Carbon Dioxide 25.8 mmol/L (21.6-31.8); Chloride 100 mmol/L (96-109); Globulin 2.9 g/dL (1.6-3.3); Glucose 99 mg/dL (70-110); Potassium 3.8 mmol/L (3.5-5.5); Sodium 137 mmol/L (135-145); Total Bilirubin 0.4 mg/dL (0.3-1.2); Total Protein 6.9 g/dL (6.2-8.2)
[2024-03-26 09:07] LABS: Basophils # (A) 0.05 X 10*3/uL (0.00-0.10); Basophils % (A) 0.6 %; Eosinophils # (A) 0.03 X 10*3/uL (0.04-0.35); Eosinophils % (A) 0.4 %; HCT 39.1 % (39.6-50.0); HGB 12.4 g/dL (13.0-17.0); Lymphocytes # (A) 1.29 X 10*3/uL (0.90-5.00); Lymphocytes % (A) 16.3 %; MCH 30.2 pg (27.0-32.0); MCHC 31.7 g/dL (32.0-37.0); MCV 95.4 FL (80.0-97.0); Mean Platelet Volume 10.8 FL (9.5-12.2); Monocytes # (A) 0.81 X 10*3/uL (0.20-1.00); Monocytes % (A) 10.3 %; NRBC Per 100 WBC 0 X 10*3/uL (0.00-0.01); Neutrophils # (A) 5.68 X 10*3/uL (1.80-7.70); Platelet Count 341 X 10*3/uL (140-440); RDW 14.6 % (11.5-14.5); WBC 7.89 X 10*3/uL (4.50-10.00)
[2024-03-26] MEDS: ANIDULAFUNGIN 100 MG in SODIUM CHLORIDE 0.9% 100 ML IVPB SCH (10:58)
[2024-03-26 11:24] LABS: Glucose,Whole Blood 92 mg/dL (70-110)
--- NOTE | 2024-03-26 12:54 | P.PN ---
Subjective Progress Note Date: 03/26/24 CHIEF COMPLAINT: Intra-abdominal abscess HISTORY OF PRESENT ILLNESS: The patient is a 53-year-old male admitted for intra-abdominal abscess status post perforated diverticulitis with sepsis. Patient has multiple complaints due to his pre-existing chronic pain issues including headache and chronic back pain. He reports no nausea. He denies abdominal pain at this time. Reports no output from his ostomy. But he is hungry. ROS: No bowel movements. No fevers or chills. No new chest pain. No p roductive sputum PHYSICAL EXAM: VITAL SIGNS: Reviewed CONSTITUTIONAL: Well developed and in no acute distress. EYES: Conjuctivae without sclera icterus. Extraocular movements grossly intact. HEAD, EARS, NOSE, THROAT: Moist buccal mucosa. Head is atraumatic, normocephalic. Hears conversational speech. No nasal drainage. RESPIRATORY: Non-labored respirations and equal bilateral excursions. CARDIOVASCULAR: Palpable 2+ radial pulses. ABDOMEN: Ostomy patent without flatus or stool. Nontender. MUSCULOSKELETAL: No gross deformity of the lower extremities noted. No clubbing. No cyanosis. SKIN: Good skin turgor. Well perfused. NEUROLOGIC: Cranial nerves II through XII grossly intact. No focal or lateralizing signs. PSYCH: Appropriate affect. Alert and oriented to person, place and time. CLINICAL LABS: Reviewed. WBC normal. STUDIES: CT-guided drainage of right lateral abdominal wall abscess obtained. ASSESSMENT: 1. Intra-abdominal abscess due to perforated diverticulitis PLAN: 1. At this time, cultures are pending due to pre-existing VRE. 2. Further discussion with infectious disease regarding antibiotic management performed the patient is at risk for and sensitivity to Zyvox. 3. PICC line and IV antibiotic management pending from cultures. 4. Discussion with medicine team for adjustment of pain meds and start her diet. Objective - Vital Signs Vital signs: Vital Signs Temp 98.2 F 03/26/24 07:44 Pulse 69 03/26/24 07:44 Resp 16 03/26/24 07:44 BP 104/63 03/26/24 07:44 Pulse Ox 98 03/26/24 07:44 FiO2 Intake & Output 03/25/24 03/26/24 03/26/24 18:59 06:59 18:59 Output Total 400 700 Balance -400 -700 Output: Urine 400 700 - Labs CBC & Chem 7: 03/26/24 04:15 03/26/24 04:15 Labs: Abnormal Lab Results - Last 24 Hours (Table) 03/26/24 03/26/24 03/26/24 Range/Units 04:15 04:15 06:12 RBC 4.10 L (4.40-5.60) X 10*6/uL Hgb 12.4 L (13.0-17.0) g/dL Hct 39.1 L (39.6-50.0) % MCHC 31.7 L (32.0-37.0) g/dL RDW 14.6 H (11.5-14.5) % Eosinophils # 0.03 L (0.04-0.35) X 10*3/uL BUN/Creatinine Ratio 22.88 H (12.00-20.00) Ratio POC Glucose (mg/dL) 125 H (70-110) mg/dL Albumin/Globulin Ratio 1.38 L (1.60-3.17) Ratio Microbiology - Last 24 Hours (Table) 03/23/24 20:16 Blood Culture - Preliminary Blood 03/23/24 20:31 Blood Culture - Preliminary Blood
[2024-03-26] MEDS: ALPRAZolam 1 MG TAB PO PRN (12:58)
--- NOTE | 2024-03-26 13:15 | P.PN ---
Subjective Progress Note Date: 03/26/24 patient is a 53-year-old gentleman with past medical history significant for recent admission for perforated diverticulitis, requiring surgical intervention with exploratory laparotomy, Preeti procedure, sigmoid resection and descending colostomy, patient also ended up having abscess formation that requi red drainage by IR who presented to the ER after being sent in by ID for evaluation. Patient stated that for the last 2 days he has been increasingabdominal pain. Patient also having nausea. Denies any fever or chills. Patient recent CT scan done that showed decreasing size of intra- abdominal fluid collections. Denies any chest pain or shortness of breath. Because of the symptoms, patient called ID and they recommended him to come to the hospital Initial lab work done in the ER showed WBC 10.5, hemoglobin 13.5, platelet count 348, sodium 135, potassium 4.1, BUN 16, creatinine 0.67 AST 20, ALT 14, lipase 89 UA negative for infection Influenza A not detected Influenza B not detected RSV not detected COVID-19 not detected Patient admitted to internal medicine service 03/25. Patient seen and examined. Continues to complain of back pain and abdominal pain. CT abdominal pelvis done showed redemonstration of 3 well- organized abdominal fluid collection in the abdominal pelvis, postsurgical changes from left lower quadrant sigmoid colostomy 03/26. Patient seen and examined. Still complaining of back pain. No fever or chills REVIEW OF SYSTEMS: CONSTITUTIONAL: No fever, no malaise,. CARDIOVASCULAR: No chest pain, no palpitations, no syncope. PULMONARY: No shortness of breath, no cough, GASTROINTESTINAL: No diarrhea, no nausea, no vomiting, no abdominal pain. NEUROLOGICAL: No headaches, no weakness, PHYSICAL EXAMINATION: GENERAL: The patient is alert and oriented x3, not in any acute distress. Well developed, well nourished. HEENT: Pupils are round and equally reacting to light. EOMI. No scleral icterus. No conjunctival pallor. Normocephalic, atraumatic. No pharyngeal erythema. No thyromegaly. CARDIOVASCULAR: S1 and S2 present. No murmurs, rubs, or gallops. PULMONARY: Chest is clear to auscultation, no wheezing or crackles. ABDOMEN: Soft, nontender, nondistended, normoactive bowel sounds. No palpable organomegaly. Ostomy MUSCULOSKELETAL: No joint swelling or deformity. EXTREMITIES: No cyanosis, clubbing, or pedal edema. NEUROLOGICAL: Gross neurological examination did not reveal any focal deficits. SKIN: No rashes. Assessment and plan Intra-abdominal abscess Abdominal pain Nausea and vomiting Recent acute diverticulitis with perforation and localized abscess s/p surgical intervention exploratory laporotomy, Huntley's procedure, sigmoid resection and descending colostomy and drainage of intra-abdominal abscess on 01/30 with progression noted on repeat CT imaging on 02/11/2024 for new abscess formation. 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 Anxiety Monitor vital signs Monitor CBC Monitor CMP Continue IV fluids continue antiemetics CT abdominal pelvis done showed redemonstration of 3 well-organized abdominal fluid collection in the abdominal pelvis, postsurgical changes from left lower quadrant sigmoid colostomy Status post successful CT-guided drainage of a small lateral fluid collection in the right abdomin Continue cefepime, Eraxis and Flagyl, tigecycline Continue pain management Surgery following ID following Labs and medication were reviewed.. Continue same treatment. Continue with symptomatic treatment. Resume home medication. Monitor labs and vitals. DVT and GI prophylaxis. Further recommendations as per clinical course of the patient Dictation was produced using [email or web address] dictation software. please excuse any grammatical, word or spelling errors. Objective - Vital Signs Vital signs: Vital Signs Temp 98.2 F 03/26/24 07:44 Pulse 69 03/26/24 07:44 Resp 16 03/26/24 07:44 BP 104/63 03/26/24 07:44 Pulse Ox 98 03/26/24 07:44 FiO2 Intake & Output 03/25/24 03/26/24 03/26/24 18:59 06:59 18:59 Output Total 400 700 Balance -400 -700 Output: Urine 400 700 - Labs CBC & Chem 7: 03/26/24 04:15 03/26/24 04:15 Labs: Abnormal Lab Results - Last 24 Hours (Table) 03/26/24 03/26/24 03/26/24 Range/Units 04:15 04:15 06:12 RBC 4.10 L (4.40-5.60) X 10*6/uL Hgb 12.4 L (13.0-17.0) g/dL Hct 39.1 L (39.6-50.0) % MCHC 31.7 L (32.0-37.0) g/dL RDW 14.6 H (11.5-14.5) % Eosinophils # 0.03 L (0.04-0.35) X 10*3/uL BUN/Creatinine Ratio 22.88 H (12.00-20.00) Ratio POC Glucose (mg/dL) 125 H (70-110) mg/dL Albumin/Globulin Ratio 1.38 L (1.60-3.17) Ratio Microbiology - Last 24 Hours (Table) 03/23/24 20:31 Blood Culture - Preliminary Blood 03/23/24 20:16 Blood Culture - Preliminary Blood
[2024-03-26 16:17] LABS: Glucose,Whole Blood 95 mg/dL (70-110)
[2024-03-26] MEDS: ALPRAZolam 1 MG TAB PO SCH (16:22)
--- NOTE | 2024-03-26 16:25 | P.PN ---
Subjective Progress Note Date: 03/26/24 Principal diagnosis: Reason for follow-up is intra-abdominal abscess Patient is a 53-year-old male with a past medical history significant for diabetes mellitus hypertension [place] osteoarthritis CVA TIA chronic back pain recent admission the hospital with perforated diverticulitis and intra-abdominal abscess s/p laparotomy and diverting colostomy and drainage of the abscess culture has been positive for VRE and Hamida with repeat aspiration on 02/12/2024 positive for drug-resistant VRE that was sensitive to oral Zyvox patient completed extended course of antibiotic with a follow-up CT did shows improvement but not complete resolution of the abscess requiring admission to the hospital. On today's evaluation that is 03/26/2024,the patient denies any fever or any c hills, patient is breathing comfortably on room air, the patient denies chest pain shortness of breath and no significant cough, patient denies abdominal pain, no nausea vomiting or diarrhea. Patient has been complaining about his back pain not been taking care of and has been threatening to leave. Patient white count is 7.89, creatinine 0.8 cultures currently pending Objective - Vital Signs Vital signs: Vital Signs Temp 98.2 F 03/26/24 07:44 Pulse 69 03/26/24 07:44 Resp 16 03/26/24 07:44 BP 104/63 03/26/24 07:44 Pulse Ox 98 03/26/24 07:44 FiO2 Intake & Output 03/25/24 03/26/24 03/26/24 18:59 06:59 18:59 Output Total 400 700 Balance -400 -700 Output: Urine 400 700 - Exam GENERAL DESCRIPTION: Middle-age male lying in bed in no distress RESPIRATORY SYSTEM: Unlabored breathing , decreased breath sounds at bases HEART: S1 S2 regular rate and rhythm , ABDOMEN: Soft , no tenderness EXTREMITIES: No edema feet - Labs CBC & Chem 7: 03/26/24 04:15 03/26/24 04:15 Labs: Abnormal Lab Results - Last 24 Hours (Table) 03/26/24 03/26/24 03/26/24 Range/Units 04:15 04:15 06:12 RBC 4.10 L (4.40-5.60) X 10*6/uL Hgb 12.4 L (13.0-17.0) g/dL Hct 39.1 L (39.6-50.0) % MCHC 31.7 L (32.0-37.0) g/dL RDW 14.6 H (11.5-14.5) % Eosinophils # 0.03 L (0.04-0.35) X 10*3/uL BUN/Creatinine Ratio 22.88 H (12.00-20.00) Ratio POC Glucose (mg/dL) 125 H (70-110) mg/dL Albumin/Globulin Ratio 1.38 L (1.60-3.17) Ratio Microbiology - Last 24 Hours (Table) 03/23/24 20:16 Blood Culture - Preliminary Blood 03/23/24 20:31 Blood Culture - Preliminary Blood Assessment and Plan (1) Intra-abdominal abscess Current Visit: Yes Status: Acute Code(s): K65.1 - PERITONEAL ABSCESS SNOMED Code(s): 37341582 (2) Penicillin allergy Current Visit: No Status: Acute Code(s): Z88.0 - ALLERGY STATUS TO PENICILLIN SNOMED Code(s): 04019573 Plan: 1patient with a complicated history of intra-abdominal abscess from perforated diverticulitis with the last culture positive for VRE drug-resistant however sensitive to oral Zyvox with the patient has completed recently with a follow-up CT did show some residual abscess which has decreased in size but not completely resolved 2-patient is status post IR drainage of one of the 3 abscess which could be accessible cultures currently pending 3patient to continue with tigecycline cefepime Flagyl and Eraxis while waiting for the culture to finalize 4-patient has been advised to stay in the hospital to have the culture to finalize his pain and diet has been discussed with admitting team as well as the surgeon, all the images has been shared with the patient that his abscess is almost 90-95% healed and we cannot take a risk of worsening infection if he left AGAINST MEDICAL ADVICE without antibiotics Dictation was produced using [employer] dictation software. please excuse any grammatical, word or spelling errors. Time with Patient: Greater than 30
[2024-03-26] MEDS: methocarbamoL 750 MG TAB PO SCH (16:36)
[2024-03-26] MEDS: KETOROLAC 15 MG/ML 1 ML VIAL IVP SCH (18:34)
[2024-03-26 20:05] LABS: Glucose,Whole Blood 116 mg/dL (70-110)
[2024-03-26] MEDS: lisinopriL 20 MG TAB PO SCH (21:06)
[2024-03-26] MEDS: CEFEPIME 2 GM in SODIUM CHLORIDE 0.9% 100 ML IVPB SCH (23:33)
[2024-03-27 06:09] LABS: Glucose,Whole Blood 73 mg/dL (70-110)
[2024-03-27 11:44] LABS: Glucose,Whole Blood 82 mg/dL (70-110)
--- NOTE | 2024-03-27 13:59 | P.PN ---
Subjective Progress Note Date: 03/27/24 patient is a 53-year-old gentleman with past medical history significant for recent admission for perforated diverticulitis, requiring surgical intervention with exploratory laparotomy, Preeti procedure, sigmoid resection and descending colostomy, patient also ended up having abscess formation that requi red drainage by IR who presented to the ER after being sent in by ID for evaluation. Patient stated that for the last 2 days he has been increasingabdominal pain. Patient also having nausea. Denies any fever or chills. Patient recent CT scan done that showed decreasing size of intra- abdominal fluid collections. Denies any chest pain or shortness of breath. Because of the symptoms, patient called ID and they recommended him to come to the hospital Initial lab work done in the ER showed WBC 10.5, hemoglobin 13.5, platelet count 348, sodium 135, potassium 4.1, BUN 16, creatinine 0.67 AST 20, ALT 14, lipase 89 UA negative for infection Influenza A not detected Influenza B not detected RSV not detected COVID-19 not detected Patient admitted to internal medicine service 03/25. Patient seen and examined. Continues to complain of back pain and abdominal pain. CT abdominal pelvis done showed redemonstration of 3 well- organized abdominal fluid collection in the abdominal pelvis, postsurgical changes from left lower quadrant sigmoid colostomy 03/26. Patient seen and examined. Still complaining of back pain. No fever or chills 03/27. Patient seen and examined. States pain is better controlled with current pain regimen. Denies any chest pain or shortness of breath. REVIEW OF SYSTEMS: CONSTITUTIONAL: No fever, no malaise,. CARDIOVASCULAR: No chest pain, no palpitations, no syncope. PULMONARY: No shortness of breath, no cough, GASTROINTESTINAL: No diarrhea, no nausea, no vomiting, no abdominal pain. NEUROLOGICAL: No headaches, no weakness, PHYSICAL EXAMINATION: GENERAL: The patient is alert and oriented x3, not in any acute distress. Well developed, well nourished. HEENT: Pupils are round and equally reacting to light. EOMI. No scleral icterus. No conjunctival pallor. Normocephalic, atraumatic. No pharyngeal erythema. No thyromegaly. CARDIOVASCULAR: S1 and S2 present. No murmurs, rubs, or gallops. PULMONARY: Chest is clear to auscultation, no wheezing or crackles. ABDOMEN: Soft, nontender, nondistended, normoactive bowel sounds. No palpable organomegaly. Ostomy MUSCULOSKELETAL: No joint swelling or deformity. EXTREMITIES: No cyanosis, clubbing, or pedal edema. NEUROLOGICAL: Gross neurological examination did not reveal any focal deficits. SKIN: No rashes. Assessment and plan Intra-abdominal abscess Abdominal pain Nausea and vomiting Recent acute diverticulitis with perforation and localized abscess s/p surgical intervention exploratory laporotomy, Huntley's procedure, sigmoid resection and descending colostomy and drainage of intra-abdominal abscess on 01/30 with progression noted on repeat CT imaging on 02/11/2024 for new abscess formation. 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 Anxiety Monitor vital signs Monitor CBC Monitor CMP Encourage ambulation Encourage use of I-S DC fluids continue antiemetics CT abdominal pelvis done showed redemonstration of 3 well-organized abdominal fluid collection in the abdominal pelvis, postsurgical changes from left lower quadrant sigmoid colostomy Status post successful CT-guided drainage of a small lateral fluid collection in the right abdomin Continue cefepime, Eraxis and Flagyl, tigecycline Continue pain management Surgery following ID following Labs and medication were reviewed.. Continue same treatment. Continue with symptomatic treatment. Resume home medication. Monitor labs and vitals. DVT and GI prophylaxis. Further recommendations as per clinical course of the patient Dictation was produced using [employer] dictation software. please excuse any grammatical, word or spelling errors. Objective - Vital Signs Vital signs: Vital Signs Temp 97.6 F 03/27/24 06:50 Pulse 55 L 03/27/24 06:50 Resp 17 03/27/24 06:50 BP 106/66 03/27/24 06:50 Pulse Ox 99 03/27/24 06:50 FiO2 Intake & Output 03/26/24 03/27/24 03/27/24 18:59 06:59 18:59 Output Total 800 575 Balance -800 -575 Output: Urine 800 575 Other: Voiding Method Toilet Urinal # Voids 3 - Labs CBC & Chem 7: 03/26/24 04:15 03/26/24 04:15 Labs: Abnormal Lab Results - Last 24 Hours (Table) 03/26/24 Range/Units 19:57 POC Glucose (mg/dL) 116 H (70-110) mg/dL Microbiology - Last 24 Hours (Table) 03/23/24 20:31 Blood Culture - Preliminary Blood 03/23/24 20:16 Blood Culture - Preliminary Blood 03/25/24 14:27 Gram Stain - Preliminary Aspirate Body Fluid Culture - Preliminary
--- NOTE | 2024-03-27 16:29 | P.PN ---
Subjective Progress Note Date: 03/27/24 Principal diagnosis: Reason for follow-up is intra-abdominal abscess Patient is a 53-year-old male with a past medical history significant for diabetes mellitus hypertension [place] osteoarthritis CVA TIA chronic back pain recent admission the hospital with perforated diverticulitis and intra-abdominal abscess s/p laparotomy and diverting colostomy and drainage of the abscess culture has been positive for VRE and Hamida with repeat aspiration on 02/12/2024 positive for drug-resistant VRE that was sensitive to oral Zyvox patient completed extended course of antibiotic with a follow-up CT did shows improvement but not complete resolution of the abscess requiring admission to the hospital. On today's evaluation that is 03/27/2024,the patient remains to be afebrile, p atient is on room air not requiring supplemental oxygen and denies any shortness of breath no chest pain or cough.Patient denies having any nausea or vomiting, has been tolerating his diet abdominal pain has decreased and lower back pain is controlled. No new lab has been repeated today cultures currently pending Objective - Vital Signs Vital signs: Vital Signs Temp 97.6 F 03/27/24 06:50 Pulse 55 L 03/27/24 06:50 Resp 17 03/27/24 06:50 BP 106/66 03/27/24 06:50 Pulse Ox 99 03/27/24 06:50 FiO2 Intake & Output 03/26/24 03/27/24 03/27/24 18:59 06:59 18:59 Output Total 800 575 Balance -800 -575 Output: Urine 800 575 Other: Voiding Method Toilet Urinal # Voids 3 - Exam GENERAL DESCRIPTION: Middle-age male lying in bed in no distress RESPIRATORY SYSTEM: Unlabored breathing , decreased breath sounds at bases HEART: S1 S2 regular rate and rhythm , ABDOMEN: Soft , no tenderness EXTREMITIES: No edema feet - Labs CBC & Chem 7: 03/26/24 04:15 03/26/24 04:15 Labs: Abnormal Lab Results - Last 24 Hours (Table) 03/26/24 Range/Units 19:57 POC Glucose (mg/dL) 116 H (70-110) mg/dL Microbiology - Last 24 Hours (Table) 03/25/24 14:27 Gram Stain - Preliminary Aspirate Body Fluid Culture - Preliminary 03/23/24 20:31 Blood Culture - Preliminary Blood 03/23/24 20:16 Blood Culture - Preliminary Blood Assessment and Plan (1) Intra-abdominal abscess Current Visit: Yes Status: Acute Code(s): K65.1 - PERITONEAL ABSCESS SNOMED Code(s): 15948197 (2) Penicillin allergy Current Visit: No Status: Acute Code(s): Z88.0 - ALLERGY STATUS TO PENICILLIN SNOMED Code(s): 52401602 Plan: 1patient with a complicated history of intra-abdominal abscess from perforated diverticulitis with the last culture positive for VRE drug-resistant however sensitive to oral Zyvox with the patient has completed recently with a follow-up CT did show some residual abscess which has decreased in size but not completely resolved 2-patient is status post IR drainage of one of the 3 abscess which could be accessible cultures currently pending 3patient to continue with tigecycline cefepime Flagyl and Eraxis while waiting for the culture to finalize at the bedside multiple question concern answered Dictation was produced using [employer] dictation software. please excuse any grammatical, word or spelling errors. Time with Patient: Less than 30
[2024-03-27 16:56] LABS: Glucose,Whole Blood 109 mg/dL (70-110)
--- NOTE | 2024-03-27 17:59 | P.PN ---
Subjective Progress Note Date: 03/27/24 CHIEF COMPLAINT: Intra-abdominal abscess HISTORY OF PRESENT ILLNESS: The patient is a 53-year-old male admitted for intra-abdominal abscess status post perforated diverticulitis with sepsis. Yesterday, patient had multiple complaints including very angry about his overall health care. His home medications were adjusted for his chronic pain and needs. Today, he is much more calm. He reports his pain is better improved. At this time, cultures are pending to adjust his antibiotic management for possible discharge. I have personally spoken to infectious disease provider regarding his care management including adjustment of his pain needs. ROS: No bowel movements. No fevers or chills. No new chest pain. No productive sputum PHYSICAL EXAM: VITAL SIGNS: Reviewed CONSTITUTIONAL: Well developed and in no acute distress. EYES: Conjuctivae without sclera icterus. Extraocular movements grossly intact. HEAD, EARS, NOSE, THROAT: Moist buccal mucosa. Head is atraumatic, normocephalic. Hears conversational speech. No nasal drainage. RESPIRATORY: Non-labored respirations and equal bilateral excursions. CARDIOVASCULAR: Palpable 2+ radial pulses. ABDOMEN: Ostomy patent without flatus or stool. Nontender. MUSCULOSKELETAL: No gross deformity of the lower extremities noted. No cl ubbing. No cyanosis. SKIN: Good skin turgor. Well perfused. NEUROLOGIC: Cranial nerves II through XII grossly intact. No focal or lateralizing signs. PSYCH: Appropriate affect. Alert and oriented to person, place and time. CLINICAL LABS: Reviewed. WBC normal. ASSESSMENT: 1. Intra-abdominal abscess due to perforated diverticulitis 2. Chronic pain syndrome 3. Chronic lower back pain PLAN: 1. After his pain medications has been adjusted, patient is more agreeable to care. 2. Agree with inpatient admission pending body fluid cultures and adjustment of IV antibiotics for possible discharge home versus PICC line. 3. Will need colostomy reversal once all intra-abdominal abscesses are completely resolved. Objective - Vital Signs Vital signs: Vital Signs Temp 98.1 F 03/27/24 14:53 Pulse 63 03/27/24 14:53 Resp 17 03/27/24 14:53 BP 124/70 03/27/24 14:53 Pulse Ox 99 03/27/24 14:53 FiO2 Intake & Output 07/03/24 07/04/24 07/04/24 18:59 06:59 18:59 Output Total 800 575 Balance -800 -575 Output: Urine 800 575 Other: Voiding Method Toilet Urinal # Voids 3 - Labs CBC & Chem 7: 03/26/24 04:15 03/26/24 04:15 Labs: Abnormal Lab Results - Last 24 Hours (Table) 03/26/24 Range/Units 19:57 POC Glucose (mg/dL) 116 H (70-110) mg/dL Microbiology - Last 24 Hours (Table) 03/23/24 20:31 Blood Culture - Preliminary Blood 03/23/24 20:16 Blood Culture - Preliminary Blood 03/25/24 14:27 Gram Stain - Preliminary Aspirate Body Fluid Culture - Preliminary
[2024-03-27 21:19] LABS: Glucose,Whole Blood 106 mg/dL (70-110)
[2024-03-28 07:04] LABS: Glucose,Whole Blood 102 mg/dL (70-110)
[2024-03-28 11:48] LABS: Basophils # (A) 0.1 k/uL (0-0.2); Basophils % (A) 0 %; Eosinophils # (A) 0.3 k/uL (0-0.7); Eosinophils % (A) 2 %; Lymphocytes # (A) 0.9 k/uL (1.0-4.8); Lymphocytes % (A) 9 %; MCH 30.3 pg (25.0-35.0); MCHC 30.9 g/dL (31.0-37.0); MCV 98.3 fL (80.0-100.0); Mean Platelet Volume 8.3; Monocytes # (A) 0.8 k/uL (0-1.0); Monocytes % (A) 8 %; Neutrophils # (A) 8.4 k/uL (1.3-7.7); Neutrophils % (A) 80 %; Platelet Count 232 k/uL (150-450); RBC 3.46 m/uL (4.30-5.90); RDW 14.6 % (11.5-15.5); WBC 10.6 k/uL (3.8-10.6)
[2024-03-28 11:49] LABS: HGB 10.5 gm/dL (13.0-17.5)
[2024-03-28 12:19] LABS: Glucose,Whole Blood 93 mg/dL (70-110)
[2024-03-28 13:58] VITALS: BMI 27.8
--- NOTE | 2024-03-28 14:06 | P.PN ---
Subjective Progress Note Date: 03/28/24 patient is a 53-year-old gentleman with past medical history significant for recent admission for perforated diverticulitis, requiring surgical intervention with exploratory laparotomy, Preeti procedure, sigmoid resection and descending colostomy, patient also ended up having abscess formation that requi red drainage by IR who presented to the ER after being sent in by ID for evaluation. Patient stated that for the last 2 days he has been increasingabdominal pain. Patient also having nausea. Denies any fever or chills. Patient recent CT scan done that showed decreasing size of intra- abdominal fluid collections. Denies any chest pain or shortness of breath. Because of the symptoms, patient called ID and they recommended him to come to the hospital Initial lab work done in the ER showed WBC 10.5, hemoglobin 13.5, platelet count 348, sodium 135, potassium 4.1, BUN 16, creatinine 0.67 AST 20, ALT 14, lipase 89 UA negative for infection Influenza A not detected Influenza B not detected RSV not detected COVID-19 not detected Patient admitted to internal medicine service 03/25. Patient seen and examined. Continues to complain of back pain and abdominal pain. CT abdominal pelvis done showed redemonstration of 3 well- organized abdominal fluid collection in the abdominal pelvis, postsurgical changes from left lower quadrant sigmoid colostomy 03/26. Patient seen and examined. Still complaining of back pain. No fever or chills 03/27. Patient seen and examined. States pain is better controlled with current pain regimen. Denies any chest pain or shortness of breath. 03/28. Patient seen and examined. Denies abdominal pain. Vital signs stable REVIEW OF SYSTEMS: CONSTITUTIONAL: No fever, no malaise,. CARDIOVASCULAR: No chest pain, no palpitations, no syncope. PULMONARY: No shortness of breath, no cough, GASTROINTESTINAL: No diarrhea, no nausea, no vomiting, no abdominal pain. NEUROLOGICAL: No headaches, no weakness, PHYSICAL EXAMINATION: GENERAL: The patient is alert and oriented x3, not in any acute distress. Well developed, well nourished. HEENT: Pupils are round and equally reacting to light. EOMI. No scleral icterus. No conjunctival pallor. Normocephalic, atraumatic. No pharyngeal erythema. No thyromegaly. CARDIOVASCULAR: S1 and S2 present. No murmurs, rubs, or gallops. PULMONARY: Chest is clear to auscultation, no wheezing or crackles. ABDOMEN: Soft, nontender, nondistended, normoactive bowel sounds. No palpable organomegaly. Ostomy MUSCULOSKELETAL: No joint swelling or deformity. EXTREMITIES: No cyanosis, clubbing, or pedal edema. NEUROLOGICAL: Gross neurological examination did not reveal any focal deficits. SKIN: No rashes. Assessment and plan Intra-abdominal abscess Abdominal pain Nausea and vomiting Recent acute diverticulitis with perforation and localized abscess s/p surgical intervention exploratory laporotomy, Huntley's procedure, sigmoid resection and descending colostomy and drainage of intra-abdominal abscess on 01/30 with progression noted on repeat CT imaging on 02/11/2024 for new abscess formation. 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 Anxiety Monitor vital signs Monitor CBC Monitor CMP Encourage ambulation Encourage use of I-S continue antiemetics CT abdominal pelvis done showed redemonstration of 3 well-organized abdominal fluid collection in the abdominal pelvis, postsurgical changes from left lower quadrant sigmoid colostomy Status post successful CT-guided drainage of a small lateral fluid collection in the right abdomin Continue cefepime, Eraxis and Flagyl, tigecycline Continue pain management Surgery following ID following Labs and medication were reviewed.. Continue same treatment. Continue with symptomatic treatment. Resume home medication. Monitor labs and vitals. DVT and GI prophylaxis. Further recommendations as per clinical course of the patient Dictation was produced using [employer] dictation software. please excuse any grammatical, word or spelling errors. Objective - Vital Signs Vital signs: Vital Signs Temp 98.4 F 03/28/24 08:06 Pulse 70 03/28/24 08:06 Resp 18 03/28/24 08:06 BP 129/78 03/28/24 08:06 Pulse Ox 98 03/28/24 08:06 FiO2 Intake & Output 03/27/24 03/28/24 03/28/24 18:59 06:59 18:59 Output Total 350 Balance -350 Output: Urine 350 Other: Voiding Method Toilet Urinal # Voids 1 - Labs CBC & Chem 7: 03/28/24 10:39 03/26/24 04:15 Labs: Microbiology - Last 24 Hours (Table) 03/25/24 14:27 Gram Stain - Preliminary Aspirate Body Fluid Culture - Preliminary 03/23/24 20:31 Blood Culture - Preliminary Blood 03/23/24 20:16 Blood Culture - Preliminary Blood
--- NOTE | 2024-03-28 15:07 | P.PN ---
Subjective Progress Note Date: 03/28/24 Principal diagnosis: Reason for follow-up is intra-abdominal abscess Patient is a 53-year-old male with a past medical history significant for diabetes mellitus hypertension [place] osteoarthritis CVA TIA chronic back pain recent admission the hospital with perforated diverticulitis and intra-abdominal abscess s/p laparotomy and diverting colostomy and drainage of the abscess culture has been positive for VRE and Hamida with repeat aspiration on 02/12/2024 positive for drug-resistant VRE that was sensitive to oral Zyvox patient completed extended course of antibiotic with a follow-up CT did shows improvement but not complete resolution of the abscess requiring admission to the hospital. On today's evaluation that is 03/28/2024, the patient continues to be afebrile, the patient is on room air and breathing comfortably, the Pt denies having any chest pain or cough, the patient abdominal pain has decreased in intensity no nausea vomiting tolerating his diet back pain is currently controlled with the pain medication. Patient white count is 10.6 cultures currently pending Objective - Vital Signs Vital signs: Vital Signs Temp 98.5 F 03/28/24 02:53 Pulse 77 03/28/24 02:53 Resp 16 03/28/24 02:53 BP 105/71 03/28/24 02:53 Pulse Ox 98 03/28/24 02:53 FiO2 Intake & Output 03/27/24 03/28/24 03/28/24 18:59 06:59 18:59 Output Total 350 Balance -350 Output: Urine 350 Other: Voiding Method Toilet Urinal # Voids 1 - Exam GENERAL DESCRIPTION: Middle-age male lying in bed in no distress RESPIRATORY SYSTEM: Unlabored breathing , decreased breath sounds at bases HEART: S1 S2 regular rate and rhythm , ABDOMEN: Soft , no tenderness EXTREMITIES: No edema feet - Labs CBC & Chem 7: 03/28/24 10:39 03/26/24 04:15 Labs: Microbiology - Last 24 Hours (Table) 03/23/24 20:31 Blood Culture - Preliminary Blood 03/23/24 20:16 Blood Culture - Preliminary Blood 03/25/24 14:27 Gram Stain - Preliminary Aspirate Body Fluid Culture - Preliminary Assessment and Plan (1) Intra-abdominal abscess Current Visit: Yes Status: Acute Code(s): K65.1 - PERITONEAL ABSCESS SNOMED Code(s): 25909943 (2) Penicillin allergy Current Visit: No Status: Acute Code(s): Z88.0 - ALLERGY STATUS TO PENICILLIN SNOMED Code(s): 78295591 Plan: 1patient with a complicated history of intra-abdominal abscess from perforated diverticulitis with the last culture positive for VRE drug-resistant however sensitive to oral Zyvox with the patient has completed recently with a follow-up CT did show some residual abscess which has decreased in size but not completely resolved 2-patient is status post IR drainage of one of the 3 abscess which could be accessible cultures currently pending 3patient is afebrile white count has been normal, to continue with tigecycline cefepime Flagyl and Eraxis while waiting for the culture to finalize to deter mine discharge antibiotics Dictation was produced using [employer] dictation software. please excuse any grammatical, word or spelling errors. Time with Patient: Less than 30
[2024-03-28 15:44] LABS: ALT 8 U/L (10-49); AST 14 U/L (14-35); Albumin 3.2 g/dL (3.8-4.9); Albumin/Globulin Ratio 1.33 Ratio (1.60-3.17); Alkaline Phosphatase 83 U/L (41-126); BUN/Creat Ratio 39.29 Ratio (12.00-20.00); Blood Urea Nitrogen 27.5 mg/dL (9.0-27.0); Chloride 103 mmol/L (96-109); Globulin 2.4 g/dL (1.6-3.3); Glucose 90 mg/dL (70-110); Potassium 4.2 mmol/L (3.5-5.5); Sodium 135 mmol/L (135-145); Total Bilirubin <0.2 mg/dL (0.3-1.2); Total Protein 5.6 g/dL (6.2-8.2)
[2024-03-28 16:33] LABS: Glucose,Whole Blood 89 mg/dL (70-110)
[2024-03-28 21:13] LABS: Glucose,Whole Blood 106 mg/dL (70-110)
--- NOTE | 2024-03-28 23:45 | P.PN ---
Subjective Progress Note Date: 03/28/24 CHIEF COMPLAINT: Intra-abdominal abscess HISTORY OF PRESENT ILLNESS: The patient is a 53-year-old male admitted for intra-abdominal abscess status post perforated diverticulitis with sepsis. He is tolerating diet. He is having bowel movement through his ostomy. Pain is well-controlled. He reports he feels more calm today. ROS: No bowel movements. No fevers or chills. No new chest pain. No p roductive sputum PHYSICAL EXAM: VITAL SIGNS: Reviewed CONSTITUTIONAL: Well developed and in no acute distress. EYES: Conjuctivae without sclera icterus. Extraocular movements grossly intact. HEAD, EARS, NOSE, THROAT: Moist buccal mucosa. Head is atraumatic, normocephalic. Hears conversational speech. No nasal drainage. RESPIRATORY: Non-labored respirations and equal bilateral excursions. CARDIOVASCULAR: Palpable 2+ radial pulses. ABDOMEN: Ostomy with stool and flatus. No blood in ostomy. MUSCULOSKELETAL: No gross deformity of the lower extremities noted. No clubbing. No cyanosis. SKIN: Good skin turgor. Well perfused. NEUROLOGIC: Cranial nerves II through XII grossly intact. No focal or lateralizing signs. PSYCH: Appropriate affect. Alert and oriented to person, place and time. CLINICAL LABS: Reviewed. WBC normal. Hemoglobin down 12.4-10.5, no signs of bleeding. MICRO: No growth to date and cultures. ASSESSMENT: 1. Intra-abdominal abscess due to perforated diverticulitis 2. Chronic pain syndrome 3. Chronic lower back pain PLAN: 1. At this time, discharge pending results of growth from his peritoneal fluid for antibiotic management after discharge 2. Diet as tolerated 3. Continue current pain management and antianxiety medications. Objective - Vital Signs Vital signs: Vital Signs Temp 98.7 F 03/28/24 19:56 Pulse 74 03/28/24 19:56 Resp 18 03/28/24 19:56 BP 143/72 03/28/24 19:56 Pulse Ox 97 03/28/24 19:56 FiO2 Intake & Output 03/28/24 03/28/24 03/29/24 06:59 18:59 06:59 Output Total 350 Balance -350 Weight 90.718 kg Output: Urine 350 Other: Voiding Method Toilet Urinal # Voids 2 # Bowel Movements 1 - Labs CBC & Chem 7: 03/28/24 10:39 03/28/24 10:39 Labs: Abnormal Lab Results - Last 24 Hours (Table) 03/28/24 03/28/24 Range/Units 10:39 10:39 RBC 3.46 L (4.30-5.90) m/uL Hgb 10.5 L D (13.0-17.5) gm/dL Hct 34.0 L (39.0-53.0) % MCHC 30.9 L (31.0-37.0) g/dL Neutrophils # 8.4 H (1.3-7.7) k/uL Lymphocytes # 0.9 L (1.0-4.8) k/uL BUN 27.5 H (9.0-27.0) mg/dL BUN/Creatinine Ratio 39.29 H (12.00-20.00) Ratio Calcium 8.0 L (8.7-10.3) mg/dL Total Bilirubin <0.2 L (0.3-1.2) mg/dL ALT 8 L (10-49) U/L C-Reactive Protein 1.50 H (0.00-0.80) mg/dL Total Protein 5.6 L (6.2-8.2) g/dL Albumin 3.2 L (3.8-4.9) g/dL Albumin/Globulin Ratio 1.33 L (1.60-3.17) Ratio Microbiology - Last 24 Hours (Table) 03/25/24 14:27 Anaerobic Culture - Preliminary Abdomen 03/25/24 14:27 Gram Stain - Preliminary Aspirate Body Fluid Culture - Preliminary
[2024-03-29 03:38] VITALS: RESP 18
[2024-03-29 06:23] LABS: Glucose,Whole Blood 101 mg/dL (70-110)
[2024-03-29 07:48] VITALS: BP 118/75; PULSE 65; TEMP 97.3
[2024-03-29 09:27] LABS: Basophils # (A) 0.06 X 10*3/uL (0.00-0.10); Basophils % (A) 0.6 %; Eosinophils # (A) 0.45 X 10*3/uL (0.04-0.35); Eosinophils % (A) 4.5 %; HGB 10.8 g/dL (13.0-17.0); Lymphocytes # (A) 1.13 X 10*3/uL (0.90-5.00); Lymphocytes % (A) 11.4 %; MCH 30.8 pg (27.0-32.0); MCHC 31.8 g/dL (32.0-37.0); MCV 96.9 FL (80.0-97.0); Mean Platelet Volume 10.9 FL (9.5-12.2); Monocytes # (A) 1.09 X 10*3/uL (0.20-1.00); NRBC Per 100 WBC 0 X 10*3/uL (0.00-0.01); Neutrophils # (A) 7.14 X 10*3/uL (1.80-7.70); Neutrophils % (A) 72.1 %; Platelet Count 225 X 10*3/uL (140-440); RBC 3.51 X 10*6/uL (4.40-5.60); RDW 14.5 % (11.5-14.5); WBC 9.91 X 10*3/uL (4.50-10.00)
[2024-03-29 09:32] LABS: ALT 7 U/L (10-49); AST 15 U/L (14-35); Albumin 3.1 g/dL (3.8-4.9); Albumin/Globulin Ratio 1.35 Ratio (1.60-3.17); Alkaline Phosphatase 76 U/L (41-126); Blood Urea Nitrogen 17.3 mg/dL (9.0-27.0); Calcium 7.8 mg/dL (8.7-10.3); Carbon Dioxide 26.4 mmol/L (21.6-31.8); Chloride 104 mmol/L (96-109); Globulin 2.3 g/dL (1.6-3.3); Glucose 94 mg/dL (70-110); Potassium 4.3 mmol/L (3.5-5.5); Sodium 137 mmol/L (135-145); Total Bilirubin 0.4 mg/dL (0.3-1.2); Total Protein 5.4 g/dL (6.2-8.2)
[2024-03-29 11:22] LABS: Glucose,Whole Blood 102 mg/dL (70-110)
--- NOTE | 2024-03-29 13:05 | P.PN ---
Subjective Progress Note Date: 03/29/24 Principal diagnosis: Reason for follow-up is intra-abdominal abscess Patient is a 53-year-old male with a past medical history significant for diabetes mellitus hypertension DC osteoarthritis CVA TIA chronic back pain recent admission the hospital with perforated diverticulitis and intra-abdominal abscess s/p laparotomy and diverting colostomy and drainage of the abscess culture has been positive for VRE and Hamida with repeat aspiration on 02/12/2024 positive for drug-resistant VRE that was sensitive to oral Zyvox patient completed extended course of antibiotic with a follow-up CT did shows improvement but not complete resolution of the abscess requiring admission to the hospital. Patient did have a CT-guided aspiration of one of the abscess by IR with cultures currently pending On today's evaluation that is 03/29/2024, Patient is afebrile patient is curr ently on room air and denies having any shortness of breath, the patient denies any chest pain or cough, the patient denies any nausea vomiting overall improvement in abdominal pain and no diarrhea patient did have issue with the nursing staff we will try to give him tramadol when he asked for a pain medication as he wanted to have the morphine and the patient is saying he cannot stay in the hospital he does not trust the nursing staff and is threatening to leave AMA. Patient white count normal at 9.91 his creatinine is 0.5 cultures are currently pending blood cultures so far negative Objective - Vital Signs Vital signs: Vital Signs Temp 97.3 F L 03/29/24 07:47 Pulse 65 03/29/24 07:47 Resp 18 03/29/24 07:47 BP 118/75 03/29/24 07:47 Pulse Ox 97 03/29/24 07:47 FiO2 Intake & Output 03/28/24 03/29/24 03/29/24 18:59 06:59 18:59 Weight 90.718 kg Other: Voiding Method Toilet # Voids 2 2 # Bowel Movements 1 - Exam GENERAL DESCRIPTION: Middle-age male lying in bed in no distress RESPIRATORY SYSTEM: Unlabored breathing , decreased breath sounds at bases HEART: S1 S2 regular rate and rhythm , ABDOMEN: Soft , no tenderness EXTREMITIES: No edema feet - Labs CBC & Chem 7: 03/29/24 06:27 03/29/24 06:27 Labs: Abnormal Lab Results - Last 24 Hours (Table) 03/28/24 03/28/24 03/29/24 Range/Units 10:39 10:39 06:27 RBC 3.46 L 3.51 L (4.30-5.90) m/uL Hgb 10.5 L D 10.8 L (13.0-17.5) gm/dL Hct 34.0 L 34.0 L (39.0-53.0) % MCHC 30.9 L 31.8 L (31.0-37.0) g/dL Neutrophils # 8.4 H (1.3-7.7) k/uL Lymphocytes # 0.9 L (1.0-4.8) k/uL Monocytes # 1.09 H (0.20-1.00) X 10*3/uL Eosinophils # 0.45 H (0.04-0.35) X 10*3/uL BUN 27.5 H (9.0-27.0) mg/dL Creatinine (0.6-1.5) mg/dL BUN/Creatinine Ratio 39.29 H (12.00-20.00) Ratio Calcium 8.0 L (8.7-10.3) mg/dL Total Bilirubin <0.2 L (0.3-1.2) mg/dL ALT 8 L (10-49) U/L C-Reactive Protein 1.50 H (0.00-0.80) mg/dL Total Protein 5.6 L (6.2-8.2) g/dL Albumin 3.2 L (3.8-4.9) g/dL Albumin/Globulin Ratio 1.33 L (1.60-3.17) Ratio 03/29/24 Range/Units 06:27 RBC (4.30-5.90) m/uL Hgb (13.0-17.5) gm/dL Hct (39.0-53.0) % MCHC (31.0-37.0) g/dL Neutrophils # (1.3-7.7) k/uL Lymphocytes # (1.0-4.8) k/uL Monocytes # (0.20-1.00) X 10*3/uL Eosinophils # (0.04-0.35) X 10*3/uL BUN (9.0-27.0) mg/dL Creatinine 0.5 L (0.6-1.5) mg/dL BUN/Creatinine Ratio 34.60 H (12.00-20.00) Ratio Calcium 7.8 L (8.7-10.3) mg/dL Total Bilirubin (0.3-1.2) mg/dL ALT 7 L (10-49) U/L C-Reactive Protein (0.00-0.80) mg/dL Total Protein 5.4 L (6.2-8.2) g/dL Albumin 3.1 L (3.8-4.9) g/dL Albumin/Globulin Ratio 1.35 L (1.60-3.17) Ratio Microbiology - Last 24 Hours (Table) 03/25/24 14:27 Gram Stain - Preliminary Aspirate Body Fluid Culture - Preliminary 03/25/24 14:27 Anaerobic Culture - Preliminary Abdomen Assessment and Plan (1) Intra-abdominal abscess Current Visit: Yes Status: Acute Code(s): K65.1 - PERITONEAL ABSCESS SNOMED Code(s): 22410354 (2) Penicillin allergy Current Visit: No Status: Acute Code(s): Z88.0 - ALLERGY STATUS TO PENICILLIN SNOMED Code(s): 39657427 Plan: 1patient with a complicated history of intra-abdominal abscess from perforated diverticulitis with the last culture positive for VRE drug-resistant however sensitive to oral Zyvox with the patient has completed recently with a follow-up CT did show some residual abscess which has decreased in size but not completely resolved 2-patient is status post IR drainage of one of the 3 abscess which could be accessible cultures currently pending 3patient is afebrile white count has been normal, however culture still pending I have advised the patient to stay in the hospital till we have the final cultures however the patient states he cannot stay anymore because of issues with the nursing staff's and is threatening to leave AMA keeping in mind his complicated history I will send a prescription for Zyvox Ceftin and Flagyl on the basis of previous cultures however explained to the patient and the and limited him we may not be sending him home on the right antibiotics and he may need to come back to the hospital for IV if the culture shows us we do not have any oral option this was explained to the patient and the in layman terms also discussed with admitting physician, patient should have another CAT scan in 2 weeks before completion of his antibiotics to make sure complete his duration of the abscess Significant amount of time was spent with the patient trying to let him stay in the hospital however he ultimately refused Dictation was produced using [employer] dictation software. please excuse any grammatical, word or spelling errors. Time with Patient: Greater than 30
--- NOTE | 2024-03-29 14:25 | P.DS ---
Providers Date of admission: 03/23/24 23:14 Expected date of discharge: 03/29/24 Attending physician: Yogesh Nolen MD Consults: 03/23/24 23:12 Consult Physician Urgent Consulting Provider: Misti Kincaid Consult Reason/Comments: Intra-abdominal abscess Do you want consulting provider notified?: Yes, Notify in am Consult Physician Urgent Consulting Provider: Karla López Consult Reason/Comments: intra-abdominal abscess Do you want consulting provider notified?: Yes, Notify in am Primary care physician: Joel Mahmood MD Assessment: Discharge diagnoses; Intra-abdominal abscess Abdominal pain Nausea and vomiting Recent acute diverticulitis with perforation and localized abscess s/p surgical intervention exploratory laporotomy, Huntley's procedure, sigmoid resection and descending colostomy and drainage of intra-abdominal abscess on 01/30 with progression noted on repeat CT imaging on 02/11/2024 for new abscess formation. 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 Anxiety Hospital course; patient is a 53-year-old gentleman with past medical history significant for recent admission for perforated diverticulitis, requiring surgical intervention with exploratory laparotomy, Preeti procedure, sigmoid resection and descending colostomy, patient also ended up having abscess formation that required drainage by IR who presented to the ER after being sent in by ID for evaluation. Patient stated that for the last 2 days he has been increasingabdominal pain. Patient also having nausea. Denies any fever or chills. Patient recent CT scan done that showed decreasing size of intra- abdominal fluid collections. Denies any chest pain or shortness of breath. Because of the symptoms, patient called ID and they recommended him to come to the hospital Initial lab work done in the ER showed WBC 10.5, hemoglobin 13.5, platelet count 348, sodium 135, potassium 4.1, BUN 16, creatinine 0.67 AST 20, ALT 14, lipase 89 UA negative for infection Influenza A not detected Influenza B not detected RSV not detected COVID-19 not detected Patient admitted to internal medicine service 03/25. Patient seen and examined. Continues to complain of back pain and abdominal pain. CT abdominal pelvis done showed redemonstration of 3 well- organized abdominal fluid collection in the abdominal pelvis, postsurgical changes from left lower quadrant sigmoid colostomy 03/26. Patient seen and examined. Still complaining of back pain. No fever or chills 03/27. Patient seen and examined. States pain is better controlled with current pain regimen. Denies any chest pain or shortness of breath. 03/28. Patient seen and examined. Denies abdominal pain. Vital signs stable 03/29. Patient seen and examined. Infectious disease discussed with patient r egarding staying in the hospital and getting IV antibiotics, patient at this time very reluctant to stay in the hospital, patient wants to follow-up outpatient. Antibiotics prescribed by ID. Outpatient follow-up with ID, PCP and surgery PHYSICAL EXAMINATION: GENERAL: The patient is alert and oriented x3, not in any acute distress. Well developed, well nourished. HEENT: Pupils are round and equally reacting to light. EOMI. No scleral icterus. No conjunctival pallor. Normocephalic, atraumatic. No pharyngeal erythema. No thyromegaly. CARDIOVASCULAR: S1 and S2 present. No murmurs, rubs, or gallops. PULMONARY: Chest is clear to auscultation, no wheezing or crackles. ABDOMEN: Soft, nontender, nondistended, normoactive bowel sounds. No palpable organomegaly. Ostomy MUSCULOSKELETAL: No joint swelling or deformity. EXTREMITIES: No cyanosis, clubbing, or pedal edema. NEUROLOGICAL: Gross neurological examination did not reveal any focal deficits. SKIN: No rashes. Dictation was produced using [employer] dictation software. please excuse any grammatical, word or spelling errors. Patient Condition at Discharge: Fair Plan - Discharge Summary Discharge Rx Participant: No New Discharge Prescriptions: New metroNIDAZOLE [Flagyl] 500 mg PO TID #42 tab Linezolid [Zyvox] 600 mg PO Q12H #28 tab cefUROXime axetiL [Ceftin] 500 mg PO BID 14 Days #28 tab Continue methocarbamoL [Robaxin-750] 750 mg PO TID PRN PRN Reason: Muscle Spasm Pregabalin [Lyrica] 150 mg PO BID #4 cap MDD 300mg oxyCODONE HCL [oxyCODONE HCL (IR)] 15 mg PO Q6H PRN PRN Reason: Moderate Pain (Scale 4 To 6) PARoxetine HCL [Paxil] 40 mg PO DAILY Melatonin 5 mg PO HS ALPRAZolam [Xanax] 1 mg PO TID PRN PRN Reason: Anxiety Omeprazole [PriLOSEC] 20 mg PO DAILY Benazepril HCl 40 mg PO DAILY metFORMIN HCL 1,000 mg PO BID-W/MEALS Discharge Medication List Melatonin 5 mg PO HS 01/25/24 [History] methocarbamoL [Robaxin-750] 750 mg PO TID PRN 01/25/24 [History] Pregabalin [Lyrica] 150 mg PO BID #4 cap MDD 300mg 02/15/24 [Rx] ALPRAZolam [Xanax] 1 mg PO TID PRN 02/24/24 [History] oxyCODONE HCL [oxyCODONE HCL (IR)] 15 mg PO Q6H PRN 02/24/24 [History] Benazepril HCl 40 mg PO DAILY 03/24/24 [History] Omeprazole [PriLOSEC] 20 mg PO DAILY 03/24/24 [History] PARoxetine HCL [Paxil] 40 mg PO DAILY 03/24/24 [History] metFORMIN HCL 1,000 mg PO BID-W/MEALS 03/24/24 [History] Linezolid [Zyvox] 600 mg PO Q12H #28 tab 03/29/24 [Rx] cefUROXime axetiL [Ceftin] 500 mg PO BID 14 Days #28 tab 03/29/24 [Rx] metroNIDAZOLE [Flagyl] 500 mg PO TID #42 tab 03/29/24 [Rx] Follow up Appointment(s)/Referral(s): Misti Kincaid MD [STAFF PHYSICIAN] - 1 Week [facility], [NON-STAFF] - As Needed Karla López MD [STAFF PHYSICIAN] - 1 Week Joel Mahmood MD [Primary Care Provider] - 1-2 days Discharge Disposition: HOME SELF-CARE
== END 2024-03-29 15:48 | disposition home or self-care (01) | DRG 862 ==
LOC: EC 19:19 → 4SSUR 23:14
PROVIDERS: ADMIT Internal Medicine; ATTEND Internal Medicine
DX: T81.43XA Infection following a procedure, organ and space surgical site, initial encounter (principal); K65.1 Peritoneal abscess; R18.8 Other ascites; Z16.22 Resistance to vancomycin related antibiotics; I10 Essential (primary) hypertension; Z93.3 Colostomy status; I16.0 Hypertensive urgency; Z88.8 Allergy status to other drugs, medicaments and biological substances; Z88.0 Allergy status to penicillin; F31.9 Bipolar disorder, unspecified; R29.6 Repeated falls; M19.90 Unspecified osteoarthritis, unspecified site; M51.36 Other intervertebral disc degeneration, lumbar region; R11.2 Nausea with vomiting, unspecified; I25.10 Atherosclerotic heart disease of native coronary artery without angina pectoris; F41.9 Anxiety disorder, unspecified; G89.4 Chronic pain syndrome; I25.2 Old myocardial infarction; Z86.73 Personal history of transient ischemic attack (TIA), and cerebral infarction without residual deficits; Z86.79 Personal history of other diseases of the circulatory system; Z79.84 Long term (current) use of oral hypoglycemic drugs; Z79.899 Other long term (current) drug therapy; Z96.651 Presence of right artificial knee joint; Z98.61 Coronary angioplasty status; Y84.8 Other medical procedures as the cause of abnormal reaction of the patient, or of later complication, without mention of misadventure at the time of the procedure; Z87.19 Personal history of other diseases of the digestive system
CPT/HCPCS: 36415; 74177; 75989; 76380; 80053; 81003; 82150; 83036; 83605; 83690; 85025; 85610; 86140; 87040; 87070; 87075; 87205; 87636; 96361; 96365; 96367; 96368; 96375; 99285

== ENCOUNTER → 2024-05-05 | Outpatient (CLI) | payer MEDICARE ==
--- NOTE | 2024-06-01 09:36 | CT ---
Patient: Mello Nix W Ordering Physician: Unknown, Unknown ID: [id number] Phone, Pager: Phone: N /A Pager: N/A : 1970 Age/Gender: 53Y, M Primary Location: N/A Procedure: CT abdomen pelvis w con Study Date: 05/05/2024 5:40:00 PM EXAMINATION TYPE: CT abdomen and pelvis w con CT DLP: 1272 mGycm, Automated exposure control for dose reduction was used. DATE OF EXAM: 05/14/2024 9:07 AM COMPARISON: 03/25/2024 CLINICAL INDICATION: Intra-abdominal abscess TECHNIQUE: Axial CT abdomen and pelvis w con;Sagittal and coronal reformats were created on a [employer] workstation. Contrast used: mL of , (none if empty) Oral contrast used: (none if empty) FINDINGS: LOWER CHEST: Unremarkable ABDOMEN LIVER: Unremarkable GALLBLADDER AND BILE DUCTS: Unremarkable. PANCREAS: Unremarkable. SPLEEN: Unremarkable. ADRENAL GLANDS: Unremarkable. KIDNEYS AND URETERS: No evidence of hydronephrosis or renal calculus. The ureters are unremarkable. Left peripelvic renal cyst. PELVIS BLADDER: Unremarkable REPRODUCTIVE: Unremarkable. ABDOMEN & PELVIS STOMACH AND BOWEL: No evidence of bowel obstruction. Large amount stool throughout the colon. Left lo wer quadrant ostomy present. PERITONEUM/RETROPERITONEUM: Resolution of prior fluid collection along the right paracolic gutter. Th ere is no identifiable plaque to fluid remaining. There is soft tissue linear morphology area in this region compatible with the sequela of prior fluid collection this region. No evidence for pneumoperi toneum. VASCULATURE: Moderate atherosclerotic calcifications are present throughout the abdominal aorta and i ts branches. No evidence of aortic aneurysm. MUSCULOSKELETAL: No acute osseous abnormalities, postsurgical changes to the spine with hardware at m ultiple levels extending from T11 to S1. Hardware appears intact. LYMPH NODES: No gross evidence for lymphadenopathy. SOFT TISSUE/ABDOMINAL WALL: Unremarkable IMPRESSION: 1. Resolution of prior fluid collection, no new fluid collections in the abdomen. No acute abdominal process. 2. Moderate stool throughout the colon.
== END | disposition home or self-care (01) ==
LOC: RADCTMAIN 15:20
PROVIDERS: ATTEND Internal Medicine Infectious Disease
DX: K65.1 Peritoneal abscess (principal); I70.0 Atherosclerosis of aorta
CPT/HCPCS: 74177; Q9967

== ENCOUNTER → 2024-08-25 | Outpatient (CLI) | payer MEDICARE ==
--- NOTE | 2024-08-25 13:37 | XR ---
EXAMINATION TYPE: XR chest 2V DATE OF EXAM: 08/25/2024 12:56 PM COMPARISON: Chest radiographs from 02/24/2024 CLINICAL INDICATION: Male, 54 years old with history of Z01.818; TECHNIQUE: XR chest 2V Frontal and lateral views of the chest. FINDINGS: Lungs/Pleura: There is no evidence of pleural effusion, focal consolidation, or pneumothorax. Pulmonary vascularity: Unremarkable. Heart/mediastinum: Cardiomediastinal silhouette is unremarkable. Musculoskeletal: No acute osseous pathology. IMPRESSION: No acute cardiopulmonary disease/process. [facility], , 08/25/2024 1:34 PM
== END | disposition home or self-care (01) ==
LOC: RADXRMAIN 12:33
PROVIDERS: ATTEND Internal Medicine
DX: Z01.818 Encounter for other preprocedural examination (principal); R51.9 Headache, unspecified
CPT/HCPCS: 71046

== ENCOUNTER → 2024-11-22 | Outpatient (CLI) | payer MEDICARE, OTHER ==
--- NOTE | 2024-11-24 12:48 | MR ---
EXAMINATION TYPE: MR thoracic spine wo con DATE OF EXAM: 11/24/2024 12:30 PM COMPARISON: We will CLINICAL INDICATION: Male, 54 years old with history of M54.6 M54.50 M43.26 M62.81, mid and low back pain, unable to walk. history of surgery. TECHNIQUE: Multiplanar MultiSpin echo imaging of the thoracic spine was performed. T12 is not well v isualized on this study. Patient motion also limits portions of the study. FINDINGS: There is scoliosis convex to the right. There appears to be spinal stenosis at C4-5 and C5-6 with progressive myelopathy suggested. Disc spaces: No evidence for herniation protrusion or significant degenerative disc disease. Spinal canal: No evidence for canal stenosis. No intrinsic or extrinsic lesion. Thoracic spinal cord: Thoracic spinal cord is of normal caliber and signal. Paraspinal soft tissues: No evidence for paraspinal mass. No destructive lesions seen. Vertebral segments: There appears to be congenital or surgical fusion at T9-T10. Pedicular screws not ed at the T11 with additional screws suspected at T12. There is extensive metallic susceptibility art ifact limiting evaluation at these levels. No evidence for fracture or bony lesion. IMPRESSION: 1. Spinal stenosis cervical spine as discussed above. 2. Limited evaluation at T11 and T12 at the site of pedicular screws extensive metallic susceptibilit y artifact. [facility], , 11/24/2024 12:45 PM
== END | disposition home or self-care (01) ==
LOC: RADMRIMAIN 08:58
PROVIDERS: ATTEND Orthopaedic Surgery
DX: M54.6 Pain in thoracic spine (principal); M54.50 Low back pain, unspecified; M48.02 Spinal stenosis, cervical region; M62.81 Muscle weakness (generalized)
CPT/HCPCS: 72146

== ENCOUNTER → 2024-12-26 | Outpatient (CLI) | payer MEDICARE, OTHER ==
--- NOTE | 2024-12-28 14:21 | MR ---
EXAMINATION TYPE: MR tspine/lspine wo/w con DATE OF EXAM: 12/26/2024 10:42 PM COMPARISON: None. CLINICAL INDICATION: Male, 54 years old with history of M43.26 FUSION OF SPINE, LUMBAR REGION M62.81 M54.6, Mid and low back pain, can't walk, history of surgery TECHNIQUE: Multiplanar, multiecho imaging on a 3.0 Lanette magnet is performed through the thoracic spi ne. IV Contrast: 10 mL Gadobutrol (None, if empty) FINDINGS: Susceptibility artifact limits T10-11 and T11-12. There appears to be congenital fusion of T9-10. Spinal cord maintains normal signal through its visualized course. Vertebral body alignment is normal. Vertebral body heights are preserved. There is loss of the T9-10 disc. Remaining disc heights appear preserved. Disc desiccation is present . No spinal canal stenosis is evident. IMPRESSION: 1. 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 2. No suspicious acute changes upper and mid thoracic spine. 3. The T10 through T12 levels are nondiagnostic due to significant susceptibility artifact. EXAMINATION TYPE: MR tspine/lspine wo/w con DATE OF EXAM: 12/26/2024 10:42 PM COMPARISON: None. CLINICAL INDICATION: Male, 54 years old with history of M43.26 FUSION OF SPINE, LUMBAR REGION M62.81 M54.6, Mid and low back pain, can't walk, history of surgery TECHNIQUE: Multiplanar, multisequence images of the lumbar spine were acquired. IV Contrast: 10 mL Gadobutrol (None, if empty) FINDINGS: Susceptibility artifact from multiple pedicle screws and fixation rods make the MRI lumbar spine nond iagnostic. There is limited visualization of the L5-S1 level without obvious AP spinal canal stenosis. Neural fo ramen have limited evaluation. Disc height appears preserved. IMPRESSION: 1. T11-L4 levels are nondiagnostic due to susceptibility artifact. The marginal areas have limited ev aluation due to some susceptibility artifact present. [facility], , 12/28/2024 2:19 PM
== END | disposition home or self-care (01) ==
LOC: RADMRIMAIN 14:50
PROVIDERS: ATTEND Orthopaedic Surgery
DX: M51.24 Other intervertebral disc displacement, thoracic region (principal); M43.26 Fusion of spine, lumbar region; M43.24 Fusion of spine, thoracic region
CPT/HCPCS: 72157; 72158; A9585

== ENCOUNTER → 2025-03-30 | Outpatient (CLI) | payer MEDICARE, OTHER ==
--- NOTE | 2025-03-30 11:36 | XR ---
EXAMINATION TYPE: XR chest 2V DATE OF EXAM: 03/30/2025 11:19 AM COMPARISON: Chest radiographs from 08/25/2024 TECHNIQUE: XR chest 2V Frontal and lateral views of the chest. CLINICAL INDICATION:Male, 54 years old with history of Z01.818 Encounter for pre op; no reported surg cinthya. FINDINGS: Lungs/Pleura: There is no evidence of pleural effusion, focal consolidation, or pneumothorax. Pulmonary vascularity: Unremarkable. Heart/mediastinum: Cardiomediastinal silhouette is unremarkable. Musculoskeletal: No acute osseous pathology. Posterior thoracolumbar fusion hardware partially visual ized. Similar mild anterior wedge deformity of the T11 vertebral body. IMPRESSION: No acute cardiopulmonary disease/process. [facility], , 03/30/2025 11:33 AM
== END | disposition home or self-care (01) ==
LOC: RADXRMAIN 10:53
PROVIDERS: ATTEND Internal Medicine
DX: Z01.818 Encounter for other preprocedural examination (principal)
CPT/HCPCS: 71046

== ENCOUNTER → 2025-04-06 | Outpatient (CLI) | payer MEDICARE, OTHER ==
[2025-04-06 20:20] LABS: Anion Gap 14.30 mmol/L (4.00-12.00); BUN/Creat Ratio 9.78 Ratio (12.00-20.00); Blood Urea Nitrogen 8.8 mg/dL (9.0-27.0); Calcium 10.1 mg/dL (8.7-10.3); Carbon Dioxide 27.7 mmol/L (21.6-31.8); Chloride 96 mmol/L (96-109); Glucose 91 mg/dL (70-110); Potassium 4.5 mmol/L (3.5-5.5); Sodium 138 mmol/L (135-145)
== END | disposition home or self-care (01) ==
LOC: LABWHC1 13:46
PROVIDERS: ATTEND Internal Medicine
DX: E11.40 Type 2 diabetes mellitus with diabetic neuropathy, unspecified (principal)
CPT/HCPCS: 36415; 80048

== ENCOUNTER → 2025-04-08 | Outpatient (CLI) | payer MEDICARE, OTHER | END | disposition home or self-care (01) | LOC: LABWHC1 11:36 | PROVIDERS: ATTEND Orthopaedic Surgery | DX: Z01.812 Encounter for preprocedural laboratory examination (principal); Z22.322 Carrier or suspected carrier of Methicillin resistant Staphylococcus aureus; M48.061 Spinal stenosis, lumbar region without neurogenic claudication | CPT/HCPCS: 86850; 86900; 86901; 87070 ==